=== PATIENT | female | born 2000 | race Caucasian/White ===

== ENCOUNTER 2023-10-27 15:54 | Emergency (ER) | payer OTHER, SELFPAY ==
[2023-10-27] VITALS (21 sets, daily range): BP systolic 103; BP diastolic 76; PULSE 93–140; RESP 10–24; TEMP 37.1–37.8; O2SAT 94–100; BMI 39.3
--- NOTE | 2023-10-27 16:10 | US_ITS ---
The [address] [address] Patient Name: EMILY BELCHER MRN: [id number] date: 2000 Sex: F Assigned Patient Location: ER Current Patient Location: ER Accession/Order Number: [id number] Exam Date: 10/27/2023 16:11 Report Date: 10/27/2023 17:29 At the request of: JUSTA NUGENT Procedure: US right upper quadrant EXAM: US right upper quadrant; [id number] HISTORY: Right upper quad abd pain, fever TECHNIQUE: Real-time sonography of the right upper quadrant was performed. Color and spectral Doppler were used to assess select abdominal vasculature. COMPARISON: None. FINDINGS: PANCREAS: Normal appearance of the visualized pancreas. GALLBLADDER: No gallstones or sludge. No gallbladder wall thickening or pericholecystic fluid. BILIARY DUCTS: Extrahepatic bile duct at the maldonado hepatis measures 3 mm. No intrahepatic or extrahepatic ductal dilatation. RIGHT KIDNEY: Kidney measures 11.1 x 5.9 x 5.8 cm. The kidney is within normal limits for size and echogenicity. No hydronephrosis, solid lesion, or stones demonstrated. Doppler signal is within normal limits. LIVER: Diffusely increased echogenicity of the liver. No suspicious lesion. Liver contour is smooth. Hepatomegaly with the liver measuring up to 20.1 cm (normal up to 18 cm). VASCULATURE: -Antegrade flow in the main portal vein. US/US right upper quadrant IMPRESSION: Hepatic steatosis with hepatomegaly, correlate for steatohepatitis. Electronically authenticated by: ERICK HARRINGTON Date: 10/27/2023 17:29
--- NOTE | 2023-10-27 16:12 | ED.ABDPAIN1 ---
HPI - Abdominal Pain General Chief Complaint: Abdominal Pain Stated Complaint: URQ Pain, Nausea/Vomiting, Fever Time Seen by Provider: 10/27/23 15:56 History of Present Illness HPI narrative: Patient is a 22-year-old female who presents to the ER for the evaluation of right upper quadrant abdominal pain that began approximately 16 hours ago. She states she developed a fever overnight of 102.0 Fahrenheit. She has not taken any Motrin or Tylenol and arrives to the emergency department afebrile. She has had 1-2 episodes of vomiting and 1-2 episodes of diarrhea throughout the day. She is not concerned for . She had a right upper quadrant gallbladder ultrasound approximately 2 years ago that was unremarkable, she states pain at that time was similar but not as significant as it is today. She has had no urinary symptoms. No flank or back pain. No other cough or congestion. Related Data Home Medications Medication Instructions Recorded Confirmed No Known Home Medications 10/27/23 10/27/23 Previous Rx's Medication Instructions Recorded dicyclomine 20 mg tablet 20 mg PO QID PRN abdominal pain 10/27/23 #12 tabs ketorolac 10 mg tablet 10 mg PO TID PRN pain #10 tabs 10/27/23 ondansetron 4 mg disintegrating 4 mg PO Q6H PRN nausea and 10/27/23 tablet vomiting #12 tabs Allergies Allergy/AdvReac Type Severity Reaction Status Date / Time cefdinir [From Omnicef] AdvReac Severe Hives Verified 10/27/23 16:00 dextromethorphan AdvReac Severe Hives Verified 10/27/23 16:00 [From Supress DX] guaifenesin [From Supress DX] AdvReac Severe Hives Verified 10/27/23 16:00 phenylephrine AdvReac Severe Hives Verified 10/27/23 16:00 [From Supress DX] Review of Systems ROS Constitutional Reports: fever; Denies: chills Ears, nose, mouth, and throat Denies: throat pain or nasal congestion Cardiovascular Denies: chest pain Respiratory Denies: shortness of breath or cough Gastrointestinal Reports: abdominal pain, nausea, vomiting and diarrhea Genitourinary Denies: painful urination Musculoskeletal Denies: back pain Integumentary/Breast Denies: rash Neurological Denies: headache PFSH PFSH Social History Smoking status: Never smoker Exam Narrative Exam Narrative: Gen.: Awake, alert, in no distress Head: Normocephalic, atraumatic ENT: Moist mucous membranes Respiratory: No respiratory distress, lungs clear bilaterally Cardio: Tachycardia Gastrointestinal: Abdomen is soft, nondistended and Mildly tender in the right upper quadrant with no guarding or rebound Extremities: Moves extremities equally Psych: Normal mood and affect Neuro: No focal neuro deficit Skin: Warm, dry, intact Constitutional Vital Signs, click to edit/add: Last Vital Signs Temp 98.8 F 10/27/23 19:34 Pulse 94 H 10/27/23 19:34 Resp 12 10/27/23 19:34 BP 103/76 10/27/23 16:00 Pulse Ox 98 10/27/23 19:34 O2 Del Method Room Air 10/27/23 19:34 Course Vital Signs Vital signs: Vital Signs Temperature 100.1 F 10/27/23 16:00 Pulse Rate 140 H 10/27/23 16:00 Respiratory Rate 18 10/27/23 16:00 Blood Pressure 103/76 10/27/23 16:00 Pulse Oximetry 96 10/27/23 16:00 Oxygen Delivery Method Room Air 10/27/23 16:00 Temperature 98.8 F 10/27/23 19:34 Pulse Rate 94 H 10/27/23 19:34 Respiratory Rate 12 10/27/23 19:34 Blood Pressure 103/76 10/27/23 16:00 Pulse Oximetry 98 10/27/23 19:34 Oxygen Delivery Method Room Air 10/27/23 19:34 MDM - Abdominal Pain MDM Narrative Medical decision making narrative: Patient was treated with 2 L of IV fluids, Dilaudid, Toradol, Levsin, Zofran. Vital signs improved with fluid administration. Lab studies show no leukocytosis, normal bilirubin. Ultrasound of the right upper quadrant with evidence of hepatic steatosis and no evidence of acute cholecystitis. CT of the abdomen and pelvis shows mesenteric adenitis. Monoscreen was added for the patient. Patient is negative for COVID, influenza. Abdomen is soft and benign in the ER and the patient is discharged home with Zofran, Bentyl, Toradol. Follow-up with PCP and return to the ER if symptoms change or worsen Medical Records Attestation: I reviewed the patient's medical records. Lab Data Attestation: I reviewed the patient's lab results. Labs: Lab Results 10/27/23 10/27/23 10/27/23 Range/Units 16:10 16:15 18:00 WBC 10.4 (4.0-11.0) 10^3/uL RBC 4.85 (4.20-5.40) 10^6/uL Hgb 13.6 (12.0-16.0) g/dL Hct 41.8 (36.0-48.0) % MCV 86.2 (81.0-99.0) fL MCH 28.0 (26.7-34.0) pg MCHC 32.5 (29.9-35.2) g/dL RDW 13.2 (11.0-15.0) % Plt Count 323 (150-450) 10^3/uL MPV 9.1 L (9.5-13.5) fL Neut % (Auto) 83.2 H (43.0-75.0) % Lymph % (Auto) 10.3 L (20.5-60.0) % [place] % (Auto) 5.9 (1.7-12.0) % Eos % (Auto) 0.1 L (0.9-7.0) % Baso % (Auto) 0.2 (0.2-2.0) % Neut # (Auto) 8.6 H (1.4-6.5) 10^3/uL Lymph # (Auto) 1.1 L (1.2-3.8) 10^3/uL [place] # (Auto) 0.6 (0.3-0.8) 10^3/uL Eos # (Auto) 0.0 (0.0-0.7) 10^3/uL Baso # (Auto) 0.0 (0.0-0.1) 10^3/uL Abs Immat Gran (auto) 0.03 (0.00-0.03) 10^3/uL Imm/Tot Granulo (auto) 0.3 (0.0-0.5) % Sodium 132 L (136-145) mmol/L Potassium 3.1 L (3.5-5.1) mmol/L Chloride 100 (98-107) mmol/L Carbon Dioxide 26.9 (21.0-32.0) mmol/L Anion Gap 8.2 BUN 9.0 (7.0-18.0) mg/dL Creatinine 0.70 (0.55-1.02) mg/dL Est GFR ( Amer) >60 (>=60) Est GFR (Non-Af Amer) >60 (>=60) BUN/Creatinine Ratio 12.9 Glucose 100 (74-106) mg/dL Lactate 1.6 (0.4-2.0) mmol/L Calcium 8.4 L (8.5-10.1) mg/dL Total Bilirubin 0.6 (0.2-1.0) mg/dL AST 27 (15-37) U/L ALT 74 H (14-59) U/L Alkaline Phosphatase 71 (46-116) U/L Total Protein 7.5 (6.4-8.2) g/dL Albumin 3.6 (3.4-5.0) g/dL Globulin 3.9 g/dL Albumin/Globulin Ratio 0.9 Lipase 49.0 (16.0-77.0) U/L Procalcitonin 0.06 (0.00-0.50) ng/mL Serum HCG, Qual Negative (NEGATIVE) Urine Color Yellow (YELLOW) Urine Clarity Sl cloudy (CLEAR) Urine pH 6.5 (5.0-9.0) Ur Specific [place] <=1.005 A (1.005-1.025) Urine Protein 30 A (NEG/TRACE) mg/dL Urine Glucose (UA) Negative (NEGATIVE) mg/dL Urine Ketones Negative (NEGATIVE) mg/dL Urine Occult Blood Large A (NEGATIVE) Urine Nitrite Negative (NEGATIVE) Urine Bilirubin Negative (NEGATIVE) Urine Urobilinogen 0.2 (0.2-1.0) EU/dL Ur Leukocyte Esterase Negative (NEGATIVE) Urine RBC 50-75 A (0-2) #/HPF Urine WBC 0-2 A (NONE SEEN) #/HPF Ur Squamous Epith Cells Few A (NONE/RARE) #/LPF Urine Crystals None seen (None Seen) #/HPF Urine Bacteria Trace A (NONE SEEN) #/HPF Urine Casts None seen (NONE SEEN) #/LPF Urine Mucus None seen (NONE SEEN) Ur Culture Indicated? No Monoscreen (NEGATIVE) Influenza Type A Ag Negative Influenza Type B Ag Negative SARS-CoV-2 Ag (CV2AG) Negative (NEGATIVE) 10/27/23 Range/Units 18:26 WBC (4.0-11.0) 10^3/uL RBC (4.20-5.40) 10^6/uL Hgb (12.0-16.0) g/dL Hct (36.0-48.0) % MCV (81.0-99.0) fL MCH (26.7-34.0) pg MCHC (29.9-35.2) g/dL RDW (11.0-15.0) % Plt Count (150-450) 10^3/uL MPV (9.5-13.5) fL Neut % (Auto) (43.0-75.0) % Lymph % (Auto) (20.5-60.0) % [place] % (Auto) (1.7-12.0) % Eos % (Auto) (0.9-7.0) % Baso % (Auto) (0.2-2.0) % Neut # (Auto) (1.4-6.5) 10^3/uL Lymph # (Auto) (1.2-3.8) 10^3/uL [place] # (Auto) (0.3-0.8) 10^3/uL Eos # (Auto) (0.0-0.7) 10^3/uL Baso # (Auto) (0.0-0.1) 10^3/uL Abs Immat Gran (auto) (0.00-0.03) 10^3/uL Imm/Tot Granulo (auto) (0.0-0.5) % Sodium (136-145) mmol/L Potassium (3.5-5.1) mmol/L Chloride (98-107) mmol/L Carbon Dioxide (21.0-32.0) mmol/L Anion Gap BUN (7.0-18.0) mg/dL Creatinine (0.55-1.02) mg/dL Est GFR ( Amer) (>=60) Est GFR (Non-Af Amer) (>=60) BUN/Creatinine Ratio Glucose (74-106) mg/dL Lactate (0.4-2.0) mmol/L Calcium (8.5-10.1) mg/dL Total Bilirubin (0.2-1.0) mg/dL AST (15-37) U/L ALT (14-59) U/L Alkaline Phosphatase (46-116) U/L Total Protein (6.4-8.2) g/dL Albumin (3.4-5.0) g/dL Globulin g/dL Albumin/Globulin Ratio Lipase (16.0-77.0) U/L Procalcitonin (0.00-0.50) ng/mL Serum HCG, Qual (NEGATIVE) Urine Color (YELLOW) Urine Clarity (CLEAR) Urine pH (5.0-9.0) Ur Specific [place] (1.005-1.025) Urine Protein (NEG/TRACE) mg/dL Urine Glucose (UA) (NEGATIVE) mg/dL Urine Ketones (NEGATIVE) mg/dL Urine Occult Blood (NEGATIVE) Urine Nitrite (NEGATIVE) Urine Bilirubin (NEGATIVE) Urine Urobilinogen (0.2-1.0) EU/dL Ur Leukocyte Esterase (NEGATIVE) Urine RBC (0-2) #/HPF Urine WBC (NONE SEEN) #/HPF Ur Squamous Epith Cells (NONE/RARE) #/LPF Urine Crystals (None Seen) #/HPF Urine Bacteria (NONE SEEN) #/HPF Urine Casts (NONE SEEN) #/LPF Urine Mucus (NONE SEEN) Ur Culture Indicated? Monoscreen Negative (NEGATIVE) Influenza Type A Ag Influenza Type B Ag SARS-CoV-2 Ag (CV2AG) (NEGATIVE) Imaging Data CT scan - abdomen: Attestation: I have reviewed the pertinent imaging results. Radiologist's impression: ITS Impressions Upper Quadrant Ultrasound 10/27/23 16:10 IMPRESSION: Hepatic steatosis with hepatomegaly, correlate for steatohepatitis. Electronically authenticated by: ERICK HARRINGTON Date: 10/27/2023 17:29 Abdomen/Pelvis CT 10/27/23 17:53 IMPRESSION: Prominent mesenteric lymph nodes in the mid abdomen and right lower quadrant, measuring up to 1.2 cm, nonspecific and may represent mesenteric adenitis. Hepatomegaly and hepatic steatosis. Electronically authenticated by: DELIA BECERRIL Date: 10/27/2023 18:12 ECG Data Attestation: I personally reviewed and interpreted this ECG as follows: (Sinus tachycardia at a rate of 129, no acute ST elevation or ectopy. EKG reviewed by attending physician) Discharge Plan Discharge Chief Complaint: Abdominal Pain Clinical Impression: Vomiting and diarrhea, Acute mesenteric adenitis, Abdominal pain Patient Disposition: Home, Self-Care Time of Disposition Decision: 19:20 Condition: Good Prescriptions / Home Meds: New ketorolac 10 mg tablet 10 mg PO TID PRN (Reason: pain) Qty: 10 0RF dicyclomine 20 mg tablet 20 mg PO QID PRN (Reason: abdominal pain) Qty: 12 0RF ondansetron 4 mg tablet,disintegrating 4 mg PO Q6H PRN (Reason: nausea and vomiting) Qty: 12 0RF No Action No Known Home Medications Instructions: Acute Nausea and Vomiting (ED), Acute Abdominal Pain (ED), Mesenteric Adenitis (ED) Stand Alone Forms: Portal Instructions Referrals: Shilpi Alegria MD [Primary Care Provider] - 1 week Discharge Date/Time: 10/27/23 19:38
[2023-10-27] MEDS: HYDROMORPHONE HCL 0.5 MG/0.5 ML SYRINGE IV (16:22)
[2023-10-27] MEDS: 0.9 % SODIUM CHLORIDE 1,000 ML 1000 ML IV (16:23)
[2023-10-27] MEDS: HYOSCYAMINE SULFATE 0.125 MG TAB.SUBL SL (16:23)
[2023-10-27] MEDS: ONDANSETRON PF 4 MG/2 ML VIAL IV (16:23)
[2023-10-27] MEDS: KETOROLAC TROMETHAMINE 30 MG/ML VIAL IVP (16:23)
--- NOTE | 2023-10-27 16:36 | ECG_ITS ---
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
[2023-10-27 16:38] LABS: Basophils Percent Auto 0.2 % (0.2-2.0); Eosinophils Percent Auto 0.1 % (0.9-7.0); Hematocrit 41.8 % (36.0-48.0); Hemoglobin 13.6 g/dL (12.0-16.0); Immature Granulocytes Abs Auto 0.03 10^3/uL (0.00-0.03); Immature Granulocytes Pct Auto 0.3 % (0.0-0.5); Lymphocytes Absolute Auto 1.1 10^3/uL (1.2-3.8); Lymphocytes Percent Auto 10.3 % (20.5-60.0); Mean Corpuscular HGB Conc 32.5 g/dL (29.9-35.2); Mean Corpuscular Volume 86.2 fL (81.0-99.0); Mean Platelet Volume 9.1 fL (9.5-13.5); Monocytes Absolute Auto 0.6 10^3/uL (0.3-0.8); Monocytes Percent Auto 5.9 % (1.7-12.0); Neutrophils Absolute Auto 8.6 10^3/uL (1.4-6.5); Neutrophils Percent Auto 83.2 % (43.0-75.0); Platelet Count 323 10^3/uL (150-450); Red Blood Count 4.85 10^6/uL (4.20-5.40); Red Cell Distribution Width 13.2 % (11.0-15.0); White Blood Count 10.4 10^3/uL (4.0-11.0)
[2023-10-27 16:44] LABS: HCG Qualitative NEGATIVE (NEGATIVE)
[2023-10-27 16:48] LABS: Alanine Aminotransferase 74 U/L (14-59); Albumin Globulin Ratio 0.9; Albumin Level 3.6 g/dL (3.4-5.0); Alkaline Phosphatase 71 U/L (46-116); Anion Gap 8.2; Aspartate Amino Transferase 27 U/L (15-37); BUN Creatinine Ratio 12.9; Bilirubin Total 0.6 mg/dL (0.2-1.0); Calcium 8.4 mg/dL (8.5-10.1); Carbon Dioxide 26.9 mmol/L (21.0-32.0); Chloride 100 mmol/L (98-107); Estimated GFR (African America >60 (>=60); Estimated GFR (Non-African Ame >60 (>=60); Globulin 3.9 g/dL; Glucose 100 mg/dL (74-106); Potassium 3.1 mmol/L (3.5-5.1); Sodium 132 mmol/L (136-145); Total Protein 7.5 g/dL (6.4-8.2)
[2023-10-27 16:51] LABS: Lactate/Lactic Acid 1.6 mmol/L (0.4-2.0)
[2023-10-27 16:52] LABS: Influenza Virus A Antigen Negative; Influenza Virus B Antigen Negative; Internal Control Within Normal Limits
[2023-10-27 16:53] LABS: SARS-CoV-2 Ag NEGATIVE (NEGATIVE)
[2023-10-27] MEDS: POTASSIUM CHLORIDE 10 MEQ ER TABLET 40 MEQ PO (17:28)
[2023-10-27] MEDS: 0.9 % SODIUM CHLORIDE 1,000 ML 999 ML IV (17:28)
--- NOTE | 2023-10-27 17:53 | CT_ITS ---
[address] [address] Patient Name: EMILY BELCHER MRN: [id number] date: 2000 Sex: F Assigned Patient Location: ER Current Patient Location: ER Accession/Order Number: [id number] Exam Date: 10/27/2023 17:36 Report Date: 10/27/2023 18:12 At the request of: JUSTA NUGENT Procedure: CT abdomen pelvis w con EXAM: CT abdomen pelvis w con HISTORY: fever, right sided abdominal pain COMPARISON: None. TECHNIQUE: Axial CT imaging was performed through the abdomen and pelvis with intravenous contrast. Multiplanar reformats were performed. Dose reduction techniques were achieved by using automated exposure control and/or adjustment of mA and/or kV according to patient size and/or use of iterative reconstruction technique. FINDINGS: Lung bases: Lung bases are clear. No pleural effusion. GI upper: Unremarkable. Liver: Hepatomegaly, measuring 21.3 cm With steatosis. Normal contour. Gallbladder: No significant abnormality. No cholelithiasis. Biliary system: No intra or extrahepatic biliary ductal dilatation. Spleen: Normal size. Pancreas: Unremarkable. Adrenal glands: Normal adrenal glands. Kidneys/ureters: Normal contours. No hydronephrosis. No nephrolithiasis or ureterolithiasis. Vessels: No aneurysm. Lymph Nodes: Prominent mesenteric lymph nodes in the mid abdomen and right lower quadrant, measuring up to 1.2 cm, nonspecific and may represent mesenteric adenitis. Small bowel: No wall thickening or dilatation. Colon: No wall thickening or dilatation. Appendix: No findings of appendicitis. Peritoneal cavity: No free fluid or pneumoperitoneum. Lower : Unremarkable. Bones: No acute bony abnormality. Soft tissues: No acute finding. Additional findings: None. CT/CT abdomen pelvis w con IMPRESSION: Prominent mesenteric lymph nodes in the mid abdomen and right lower quadrant, measuring up to 1.2 cm, nonspecific and may represent mesenteric adenitis. Hepatomegaly and hepatic steatosis. Electronically authenticated by: DELIA BECERRIL Date: 10/27/2023 18:12
[2023-10-27 18:29] LABS: Bilirubin Urine NEGATIVE (NEGATIVE); Blood Urine LARGE (NEGATIVE); Clarity Urine SL CLOUDY (CLEAR); Color Urine YELLOW (YELLOW); Glucose Urine UA NEGATIVE (NEGATIVE); Ketones Urine NEGATIVE (NEGATIVE); Leukocyte Esterase Urine NEGATIVE (NEGATIVE); Nitrite Urine NEGATIVE (NEGATIVE); Protein Urine 30 mg/dL (NEG/TRACE); Specific Gravity Urine <=1.005 (1.005-1.025); Urobilinogen Urine 0.2 EU/dL (0.2-1.0); pH Urine 6.5 (5.0-9.0)
[2023-10-27 18:33] LABS: Urine Microscopic Indicated YES
[2023-10-27 18:37] LABS: Bacteria Urine TRACE #/HPF (NONE SEEN); Cast Seen? NONE SEEN #/LPF (NONE SEEN); Crystals Seen? None Seen #/HPF (None Seen); Mucus Urine NONE SEEN (NONE SEEN); RBC Urine 50-75 #/HPF (0-2); Squamous Epithelial Cell Urine FEW #/LPF (NONE/RARE); Urine Culture Indicated NO; WBC Urine 0-2 #/HPF (NONE SEEN)
[2023-10-27 18:38] LABS: PROCALCITONIN 0.06 ng/mL (0.00-0.50)
[2023-10-27 19:04] LABS: Mono Screen NEGATIVE (NEGATIVE)
== END 2023-10-27 19:38 | disposition home or self-care (01) ==
PROVIDERS: Physician Assistant; Emergency Provider Emergency Medicine; PCP Family Medicine
DX: R10.9 Unspecified abdominal pain (principal); R11.10 Vomiting, unspecified; R19.7 Diarrhea, unspecified; I88.0 Nonspecific mesenteric lymphadenitis; Z20.822 Contact with and (suspected) exposure to COVID-19
CPT/HCPCS: 36415; 74177; 76705; 80053; 81001; 83605; 83690; 84145; 84703; 85025; 86308; 87040; 87804; 87811; 93005; 96361; 96374; 96375; 99285; J1170; J1885; J2405; Q9967

== ENCOUNTER 2024-11-17 14:52 | Outpatient (OUT) | payer OTHER, SELFPAY ==
--- OUTSIDE RECORDS SUMMARY | 2024-11-17 14:56 | XMS_ITS | CCD ---
Author Organization [facility] Care Team Providers Care Material Control Analyst Name Role Phone DANTE, DR CAMPOS Admitting Unavailable DANTE, DR CAMPOS Consulting Unavailable DANTE, DR CAMPOS Attending Unavailable BLANTON, DR SHILPI Rios Primary Care Unavailable ZIEBER, DR TRENT Lyn Consulting Unavailable KARASIK, DR RAINEY Attending Unavailable KARASIK, DR RAINEY Admitting Unavailable KARASIK, DR RAINEY Consulting Unavailable BLANTON, DR SHILPI Rios Primary Care Unavailable DANTE, DR CAMPOS Attending Unavailable BLANTON, DR SHILPI Rios Primary Care Unavailable DANTE, DR CAMPOS Consulting Unavailable DANTE, DR CAMPOS Admitting Unavailable DANTE, DR CAMPOS Attending Unavailable BLANTON, DR SHILPI Rios Primary Care Unavailable DANTE, DR CAMPOS Consulting Unavailable DANTE, DR CAMPOS Admitting Unavailable BLANTON, DR SHILPI Rios Primary Care Unavailable BLANTON, DR SHILPI Rios Attending Unavailable BLANTON, DR SHILPI Rios Admitting Unavailable HEUVELTON, DR DARCY Mondragon Consulting Unavailable FRANNY, DR SHILPI Rios Consulting Unavailable DANTE, DR CAMPOS Attending Unavailable BLANTON, DR SHILPI Rios Primary Care Unavailable DANTE, DR CAMPOS Admitting Unavailable DANTE, DR CAMPOS Attending Unavailable BLANTON, DR SHILPI Rios Primary Care Unavailable DANTE, DR CAMPOS Admitting Unavailable ZENA QUEVEDO Consulting Unavailable DANTE, DR CAMPOS Attending Unavailable DANTE, DR CAMPOS Admitting Unavailable BLANTON, DR SHILPI Rios Primary Care Unavailable DANTE, DR CAMPOS Attending Unavailable DANTE, DR CAMPOS Admitting Unavailable BLANTON, DR SHILPI Rios Primary Care Unavailable DANTE, DR CAMPOS Procedure Practitioner Unavailab le KARRODGERK, DR RAINEY Consulting Unavailable DANTE, DR CAMPOS Consulting Unavailable FORTINO BUTT Consulting Unavailable ZENA QUEVEDO Consulting Unavailable DANTE, DR CAMPOS Attending Unavailable DANTE, DR CAMPOS Admitting Unavailable DANTE, DR CAMPOS Consulting Unavailable BLANTON, DR SHILPI Rios Primary Care Unavailable FRANNY, DR SHILPI Rois Primary Care Unavailable DANTE, DR CAMPOS Attending Unavailable DANTE, DR CAMPOS Admitting Unavailable DANTE, DR CAMPOS Consulting Unavailable DANTE, DR CAMPOS Attending Unavailable DANTE, DR CAMPOS Admitting Unavailable DANTE, DR CAMPOS Consulting Unavailable FRANNY, DR SHILPI Rios Primary Care Unavailable FRANNY, DR SHILPI Rios Primary Care Unavailable DANTE, DR CAMPOS Attending Unavailable DANTE, DR CAMPOS Admitting Unavailable DANTE, DR CAMPOS Consulting Unavailable DANTE, DR CAMPOS Attending Unavailable DANTE, DR CAMPOS Admitting Unavailable DANTE, DR CAMPOS Consulting Unavailable FRANNY, DR SHILPI Rios Primary Care Unavailable Franny GRARETT, Shilpi Primary Care Provider Allergies Allergy Classification Reported Allergen(s) Allergy Type Date of Onset Reaction(s) Facility (1 source) cefdinir Drug Allergy [facility] (2 sources) Cephalosporins (Antibiotic) Drug allergy (disorder) [facility] (1 source) Dextrothyroxine Drug Allergy [facility] (1 source) cefdinir Drug Allergy [facility] (1 source) Other Propensity to adverse reactions 5 [facility] Problems Active Problems Problem Classification Problem Date Documented Da te Episodic/Chronic Abdominal pain (4 sources) Right upper quadrant pain; Translations: [RIGHT UPPER QUADRANT PAIN] Onset: 12-26-2021 Episodic Menstrual disorders (1 source) Missed period; Translations: [Irregular menstruation, unspecified] 10-26-2024 Chronic Other and delivery including normal (19 sources) Encounter for routine follow-up; Translations: [Single live ] Onset: 01-13-2021 Episodic Thyroid disorders (1 source) Hypothyroidism, unspecified; Translations: [HYPOTHYROIDISM UNSPECIFIED] Onset: 08-05-2021 Chronic Unclassified (1 source) CONTACT W/AND (SUSP) EXPOS COVID-19; Translations: [CONTACT W/AND (SUSP) EXPOS COVID-19] Onset: 07-25-2021 Past or Other Problems Problem Classification Problem Date Documented Date Episodic/Chronic Immunizations and screening for infectious disease (2 sources) Encounter for screening for human papillomavirus (HPV); Translations: [Encounter for screening for infections with a predominantly sexual mode of transmission] Onset: 03-04-2021 Episodic Other complications of ; puerperium affecting management of mother (1 source) Endocrine, nutritional and metabolic diseases complicating childbirth; Translations: [ENDOCRN NUTR MET DZ COMP CHILDBIRTH] Onset: 08-05-2021 Episodic Other complications of ; puerperium affecting management of mother (1 source) Streptococcus B carrier state complicating childbirth; Translations: [STREP B ACUNA STATE COMP CHILDBIRTH] Onset: 08-05-2021 Episodic Other complications of (4 sources) related exhaustion and fatigue, unspecified trimester; Translations: [PREG REL EXHAUSTION FATIGUE UNS TRI] Onset: 03-12-2021 Episodic Other female genital disorders (1 source) Other specified noninflammatory disorders of vagina; Translations: [OTH SPEC NONINFLAMMATORY D/O VAGINA] Onset: 03-04-2021 Episodic Other screening for suspected conditions (not mental disorders or infectious disease) (13 sources) Encounter for screening for Streptococcus B; Translations: [Encounter for screening for diabetes mellitus] Onset: 02-25-2021 Episodic Previous (3 sources) Maternal care for low transverse scar from previous delivery; Translations: [MAT CARE LW TRANS SCAR PREV C/S DEL] Onset: 07-28-2021 Episodic Residual codes; unclassified (1 source) 39 weeks gestation of ; Translations: [39 WEEKS GESTATION OF ] Onset: 08-05-2021 Episodic Residual codes; unclassified (1 source) Family history of other congenital malformations, deformations and chromosomal abnormalities; Translations: [FM HX OTH VOLODYMYR MALF DEFRM AND CHROM ABN] Onset: 08-05-2021 Episodic Results Test Name Value Interpretation Reference Range Facility HCG ( test) Ql (U)o n 10-26-2024 Interpretation and review of laboratory results Abnormal [facility] Preg Test, Ur Positive Negative [facility] US OB TRANSVAGINALon 025 US OB TRANSVAGINAL EXAM: OB Ultrasound: REASON FOR EXAM: Dating. COMPARISON: None. TECHNIQUE: Grayscale and M-mode Doppler imaging is performed. Transabdominal and endovaginal images. FINDINGS: heart rate: 168 bpm Sac: 3.3 cm CRL: 2.6 cm GA for sonogram: 9.4 wks (08.6 - 10.1) DEL: May 29, 2025. Cervical Length: 3.9 cm Anatomy Observed: Gestational Sac: Visualized Yolk Sac: Visualized Pole: Visualized Cardiac Activity: Visualized Uterus: Normal Uterine Position: Anteverted, anteflexed Right Ovary: 3.1 x 1.5 x 2.6 cm Volume: 5.0 mL Left Ovary: 1.8 x 1.3 x 1.9 cm Volume: 2.2 mL Cervical Length: 3.9 cm, closed AUA: 9 wks 2 days DEL: May 29, 2025 LMP: 10 wks 0 days DEL: May 24, 2025 IMPRESSION: 1. Single living intrauterine gestation. cardiac activity 168 bpm. 9.4 weeks gestational age based on sonographic dates. DEL May 29, 2025. No gross abnormalities. 2. Followup ultrasound at 20 to 22 weeks gestational age for growth and anatomy scan. This report is generated using voice recognition reporting (Chuguobang). On occasion, Chuguobang erroneously drops words from the report or replaces the spoken word with a similar sounding word. Please call with any questions/concerns regarding the report. Dictated and transcribed 10/27/2024/tom This report has been electronically signed and approved by the interpreting radiologist. Normal Not Available Comment on above: Order Comment: US OB TRANSVAGINAL No LMP recorded. Urinalysis macro (dipstick) panel (U)on 10-26-2024 Bilirubin, UA Negative Negative - 4(70) +++ mg/dL [facility] Blood, UA Negative Negative - 50 Willard/mcL [facility] Clarity, UA Clear [facility] Color, UA Yellow [facility] Glucose, UA Negative Negative - 2000(110) ++++ mg/dL [facility] Interpretation and review of laboratory results Normal [facility] Ketones, UA Negative Negative - 160(16) ++++ mg/dL [facility] Leukocytes, UA Negative Negative - 500+++ Charlie/mcL [facility] Nitrite, UA Negative Negative - Positive [facility] pH, UA 6.5 5 - 9 [facility] Protein, UA Negative Negative - 2000(20) ++++ mg/dL [facility] Spec Grav, UA 1.005 1 - 1.03 [facility] Urobilinogen, UA 0.2 0.2 - 12 mg/dL [facility] US SINGLE QUAD RT UPPERon US SINGLE QUAD RT UPPER EXAMINATION: US SINGLE QUAD RT UPPER HISTORY: Right upper quadrant pain COMPARISON: No relevant comparison available. FINDINGS: The visualized pancreas is normal in appearance. The liver is normal in size, contour and echotexture. Normal hepatopedal flow in the main portal vein with a velocity of 28 cm/s. The gallbladder is normal in size. No pericholecystic fluid, gallbladder sludge or cholelithiasis. The wall measures 2.3 mm, normal. Negative sonographic Maynard sign. The common bile duct measures 4.1 mm, normal. The right kidney is normal in appearance measuring 10.8 x 5.0 x 6.3 cm. No solid mass or hydronephrosis. IMPRESSION: Normal ultrasound Electronically authenticated by: DARCY AU Date: 2021-12-26 16:10 Normal [facility] CBC AUTO DIFFon 07-29-2021 BASO # 0.0 103/ul Normal 0.0-0.1 [facility] Comment on above: Performed By: #### D RUGRPD #### [facility] [address] [place] [address] Dr. Brian Abdi Basophils/100 WBC (Bld) 0.2 % Normal 0.2-2.0 [facility] Comment on above: Performed By: #### D RUGRPD #### [facility] [address] [place] [address] Dr. Brian Abdi EO # 0.1 103/ul Normal 0.0-0.7 [facility] Comment on above: Performed By: #### D RUGRPD #### [facility] [address] [place] [address] Dr. Brian Abdi Eosinophils/100 WBC (Bld) 0.5 % Critically low 0.9-7.0 [facility] Comment on above: Performed By: #### D RUGRPD #### [facility] [address] [place] [address] Dr. Brian Abdi Erythrocyte distribution width (RBC) [Ratio] 13.9 % Normal 11.0-15.0 [facility] Comment on above: Performed By: #### D RUGRPD #### [facility] [address] [address] [address] Brian Abdi Hematocrit (Bld) [Volume fraction] 25.7 % Critically low 36.0-48.0 [facility] Comment on above: Performed By: #### D RUGRPD #### [facility] [address] [address] [address] Brian Abdi Hemoglobin (Bld) [Mass/Vol] 8.2 g/dL Critically low 12.0-16.0 [facility] Comment on above: Result Comment: SURESH ENT DELIVERED Performed By: #### D RUGRPD #### [facility] [address] [address] [address] Brian Abdi IG # 0.04 10e3/ul Critically high 0.00-0.03 [facility] Comment on above: Performed By: #### D RUGRPD #### [facility] [address] [address] [address] Brian Abdi IG % 0.4 % Normal 0.0-0.5 [facility] Comment on above: Performed By: #### D RUGRPD #### [facility] [address] [address] [address] Brian Abdi LYMPH # 2.4 103/ul Normal 1.2-3.8 [facility] Comment on above: Performed By: #### D RUGRPD #### [facility] [address] [address] [address] Brian Abdi Lymphocytes/100 WBC (Bld) 23.6 % Normal 20.5-60.0 [facility] Comment on above: Performed By: #### D RUGRPD #### [facility] [address] [address] [address] Brian Abdi MANUAL DIFF REQ NO Normal [facility] Comment on above: Performed By: #### D RUGRPD #### [facility] [address] [address] [address] Brian Abdi MCH (RBC) [Entitic mass] 27.6 pg Normal 26.7-34.0 [facility] Comment on above: Performed By: #### D RUGRPD #### [facility] [address] [address] [address] Brian Abdi MCHC (RBC) [Mass/Vol] 31.9 g/dL Normal 29.9-35.2 [facility] Comment on above: Performed By: #### D RUGRPD #### [facility] [address] [address] [address] Brian Abdi MCV (RBC) [Entitic vol] 86.5 fL Normal 81.0-99.0 [facility] Comment on above: Performed By: #### D RUGRPD #### [facility] [address] [address] [address] Brian Abdi MONO # 0.7 103/ul Normal 0.3-0.8 [facility] Comment on above: Performed By: #### D RUGRPD #### [facility] [address] [address] [address] Brian Abdi Monocytes/100 WBC (Bld) 7.3 % Normal 1.7-12.0 [facility] Comment on above: Performed By: #### D RUGRPD #### [facility] [address] [address] [address] Brian Abdi NEUT # 6.8 103/ul Critically high 1.4-6.5 [facility] Comment on above: Performed By: #### D RUGRPD #### [facility] [address] [address] [address] Brian Abdi Neutrophils/100 WBC (Bld) 68.0 % Normal 43.0-75.0 [facility] Comment on above: Performed By: #### D RUGRPD #### [facility] [address] [address] [address] Brian Abdi Platelet mean volume (Bld) [Entitic vol] 9.8 fL Normal 9.5-13.5 [facility] Comment on above: Performed By: #### D RUGRPD #### [facility] [address] [address] [address] Brian Abdi PLT 204 103/ul Normal 150-450 [facility] Comment on above: Performed By: #### D RUGRPD #### [facility] [address] [address] [address] Brian Abdi RBC 2.97 106/ul Critically low 4.20-5.40 [facility] Comment on above: Performed By: #### D RUGRPD #### [facility] [address] [place] [address] Dr. Brian Abdi WBC 10.0 103/ul Normal 4.0-11.0 [facility] Comment on above: Performed By: #### D RUGRPD #### [facility] [address] [place] [address] Dr. Brian Abdi CBC AUTO DIFFon 07-28-2021 BASO # 0.0 103/ul Normal 0.0-0.1 [facility] Comment on above: Performed By: #### H H #### [facility] [address] [place] [address] Sunitha Tram Basophils/100 WBC (Bld) 0.3 % Normal 0.2-2.0 [facility] Comment on above: Performed By: #### H H #### [facility] [address] [place] [address] Sunitha Tram EO # 0.0 103/ul Normal 0.0-0.7 [facility] Comment on above: Performed By: #### H H #### [facility] [address] [place] [address] Sunitha Tram Eosinophils/100 WBC (Bld) 0.6 % Critically low 0.9-7.0 [facility] Comment on above: Performed By: #### H H #### [facility] [address] [place] [address] Sunitha Tram Erythrocyte distribution width (RBC) [Ratio] 14.1 % Normal 11.0-15.0 [facility] Comment on above: Performed By: #### H H #### [facility] [address] [place] [address] Sunitha Tram Hematocrit (Bld) [Volume fraction] 34.5 % Critically low 36.0-48.0 [facility] Comment on above: Performed By: #### H H #### [facility] [address] [place] [address] Sunitha Tram Hemoglobin (Bld) [Mass/Vol] 10.8 g/dL Critically low 12.0-16.0 [facility] Comment on above: Performed By: #### H H #### [facility] [address] [place] [address] Sunitha Tram IG # 0.02 10e3/ul Normal 0.00-0.03 [facility] Comment on above: Performed By: #### H H #### [facility] [address] [place] [address] Sunitha Tram IG % 0.3 % Normal 0.0-0.5 [facility] Comment on above: Performed By: #### H H #### [facility] [address] [place] [address] Sunitha Tram LYMPH # 1.8 103/ul Normal 1.2-3.8 [facility] Comment on above: Performed By: #### H H #### [facility] [address] [place] [address] Sunitha Ugalde Lymphocytes/100 WBC (Bld) 25.4 % Normal 20.5-60.0 [facility] Comment on above: Performed By: #### H H #### [facility] [address] [place] [address] Sunitha Ugalde MANUAL DIFF REQ NO Normal [facility] Comment on above: Performed By: #### H H #### [facility] [address] [place] [address] Sunitha Tram MCH (RBC) [Entitic mass] 27.3 pg Normal 26.7-34.0 [facility] Comment on above: Performed By: #### H H #### [facility] [address] [place] [address] Sunitha Tram MCHC (RBC) [Mass/Vol] 31.3 g/dL Normal 29.9-35.2 [facility] Comment on above: Performed By: #### H H #### [facility] [address] [place], [place] [address] Sunitha Tram MCV (RBC) [Entitic vol] 87.3 fL Normal 81.0-99.0 [facility] Comment on above: Performed By: #### H H #### [facility] [address] [id number] Sunitha Tram MONO # 0.6 103/ul Normal 0.3-0.8 [facility] Comment on above: Performed By: #### H H #### [facility] [address] [id number] Sunitha Tram Monocytes/100 WBC (Bld) 8.7 % Normal 1.7-12.0 [facility] Comment on above: Performed By: #### H H #### [facility] [address] [place] [address] Sunitha Tram NEUT # 4.7 103/ul Normal 1.4-6.5 [facility] Comment on above: Performed By: #### H H #### [facility] [address] [place], [place] [id number] Sunitha Tram Neutrophils/100 WBC (Bld) 64.7 % Normal 43.0-75.0 [facility] Comment on above: Performed By: #### H H #### [facility] [address] [place], [place] [id number] Sunitha Tram Platelet mean volume (Bld) [Entitic vol] 9.8 fL Normal 9.5-13.5 [facility] Comment on above: Performed By: #### H H #### [facility] [address] [place], [place] [id number] Sunitha Tram PLT 240 103/ul Normal 150-450 [facility] Comment on above: Performed By: #### H H #### [facility] [address] [place], [place] [id number] Sunitha Tram RBC 3.95 106/ul Critically low 4.20-5.40 [facility] Comment on above: Performed By: #### H H #### [facility] [address] [id number] Sunitha Tram WBC 7.3 103/ul Normal 4.0-11.0 [facility] Comment on above: Performed By: #### H H #### [facility] [address] [place] [address] Sunitha Ugalde DRUG SCREEN RAPID (URINE)on 07-28-2021 AMP Negative Normal NEGATIVE [facility] Comment on above: Performed By: #### D RUGRPD #### [facility] [address] [place] [address] Dr. Brian Abdi BAR Negative Normal NEGATIVE [facility] Comment on above: Performed By: #### D RUGRPD #### [facility] [address] [place] [address] Dr. Brian Abdi BUP Negative Normal NEGATIVE [facility] Comment on above: Performed By: #### D RUGRPD #### [facility] [address] [place] [address] Dr. Brian Abdi BZO Negative Normal NEGATIVE [facility] Comment on above: Performed By: #### D RUGRPD #### [facility] [address] [place] [address] Dr. Brian Abdi LISA Negative Normal NEGATIVE [facility] Comment on above: Performed By: #### D RUGRPD #### [facility] [address] [place] [address] Dr. Brian Abdi CUT-OFFS SEE BELOW Normal [facility] Comment on above: Result Comment: AMP (Amphetamine): 500ng/mL, BAR (Barbituates): 200 ng/mL, BZO (Benzodiazepines): 150 ng/mL, BUP (Buprenorphine): 10 ng/mL, LISA (Cocaine): 150 ng/mL, mAMP (Methamphetamine): 500 ng/mL, MTD (Methadone): 200 ng/mL, OPI (Opiates): 100 ng/mL, OXY (Oxycodone): 100 ng/mL, PCP (Phencyclidine): 25 ng/mL, PPX (Propoxyphene): 300 ng/mL, THC (Cannabinoids): 50 ng/mL, TCA (Trycyclic Antidepressants): 300 ng/mL Performed By: #### D RUGRPD #### [facility] [address] [address] [address] Brian Abdi DRUG CUT HEADER DRUG CLASS TEST SYSTEM CUT-OFF CONCENTRATIONS ARE FOLLOWS: Normal [facility] Comment on above: Performed By: #### D RUGRPD #### [facility] [address] [address] [address] Brian Abdi mAMP Negative Normal NEGATIVE [facility] Comment on above: Performed By: #### D RUGRPD #### [facility] [address] [address] [address] Brian Abdi MTD Negative Normal NEGATIVE [facility] Comment on above: Performed By: #### D RUGRPD #### [facility] [address] [address] [address] Brian Abdi OPI Negative Normal NEGATIVE [facility] Comment on above: Performed By: #### D RUGRPD #### [facility] [address] [place] [address] Dr. Brian Abdi OXY Negative Normal NEGATIVE [facility] Comment on above: Performed By: #### D RUGRPD #### [facility] [address] [address] [address] Brian Abdi PCP Negative Normal NEGATIVE [facility] Comment on above: Performed By: #### D RUGRPD #### [facility] [address] [place] [address] Dr. Brian Abdi PPX Negative Normal NEGATIVE [facility] Comment on above: Performed By: #### D RUGRPD #### [facility] [address] [address] [address] Brian Abdi TCA Negative Normal NEGATIVE [facility] Comment on above: Performed By: #### D RUGRPD #### [facility] [address] [address] [address] Brian Abdi THC Negative Normal NEGATIVE [facility] Comment on above: Performed By: #### D RUGRPD #### [facility] [address] [place] [address] Dr. Brian Abdi TYPE AND SCREENon 07-28-2021 TYPE AND SCREEN Negative Normal [facility] Comment on above: Performed By: #### T NS #### [facility] [address] [place] [address] Dr. 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 YELLOW Normal YELLOW [facility] Comment on above: Performed By: #### H H #### [facility] [address] [place] [address] Sunitha Tram Glucose Ql (U) Negative Normal NEGATIVE [facility] Comment on above: Performed By: #### H H #### [facility] [address] [place] [address] Sunitha Tram Hemoglobin Ql (U) Negative Normal NEGATIVE [facility] Comment on above: Performed By: #### H H #### [facility] [address] [place] [address] Sunitha Tram Ketones Ql (U) Negative Normal NEGATIVE [facility] Comment on above: Performed By: #### H H #### [facility] [address] [place] [address] Sunitha Tram LEUKOCYTES Negative Normal NEGATIVE [facility] Comment on above: Performed By: #### H H #### [facility] [address] [place] [address] Sunitha Tram Nitrite Ql (U) Negative Normal NEGATIVE [facility] Comment on above: Performed By: #### H H #### [facility] [address] [place] [address] Sunitha Tram pH (U) 6.0 [pH] Normal 5-9 [facility] Comment on above: Performed By: #### H H #### [facility] [address] [place] [address] Sunitha Ugalde SPEC GRAVITY <=1.005 Abnormal 1.005-<=1.025 [facility] Comment on above: Performed By: #### H H #### [facility] [facility] [address] [place] [address] Sunitha Ugalde UA PROTEIN Negative Normal NEGATIVE/ TRACE [facility] Comment on above: Performed By: #### H H #### [facility] [address] [place] [address] Sunitha Ugalde UR MICRO IND NOT INDICATED Normal [facility] Comment on above: Performed By: #### H H #### [facility] [address] [place] [address] Sunitha Ugalde Urobilinogen Qn (U) 0.2 {Fito'U}/dL Normal 0.2 - 1. 0 [facility] Comment on above: Performed By: #### H H #### [facility] [address] [place] [address] Sunitha Tram Covid-19 PCR ([facility])on 06-28 SARS-CoV-2 (COVID-19) RNA JEROD+probe Ql (Unsp spec) Not detected Normal NOT DETECTED [facility] Comment on above: Result Comment: This test is not yet approved or cleared by the [place] FDA. When there are no FDA-approved or cleared tests available, and other criteria are met, FDA can make tests available under an emergency access mechanism called an Emergency Use Authorization (EUA). The EUA for this test is supported by the [place] of Health and Human Service's (HHS's) declaration that circumstances exist to justify the emergency use of in vitro diagnostics for the detection and/or diagnosis of the virus that causes COVID-19. This EUA will remain in effect (meaning this test can be used) for the duration of the COVID-19 declaration justifying emergency of IVDs, unless it is terminated or revoked by FDA (after which the test may no longer be used). When diagnostic testing is negative, the possibility of a false negative should be considered in the context of a patient's recent exposures and the presence of clinical signs and symptoms consistent with SARS-CoV-2. Performed By: #### D RUGRPD #### [facility] [address] [place] [address] Dr. Brian Abdi GROUP B STREP CULTUREon 06-27 S. agalactiae Ag Ql (Unsp spec) Culture Observations: GBS CALD TO TRAM TRAORE,TESSIE@/ /RK Isolate 1 Streptococcus agalactiae Moderate growth of ORGANISM 1 Streptococcus agalactiae ANTIBIOTIC M.I.C RX STATUS Benzylpenicillin <=0.06 S F Ampicillin <=0.25 S F Cefotaxime <=0.12 S F Ceftriaxone <=0.12 S F Levofloxacin 0.5 S F Inducible Clindamycin Resistance Neg NEG F Erythromycin 2 R F Clindamycin <=0.25 S F Linezolid <=2 S F Vancomycin 0.5 S F Tetracycline <=0.25 S F Normal [facility] Comment on above: Performed By: #### G BSCX #### [facility] [address] [place] [address] Dr. Brian Abdi HEMOGRAM AND PLATELon 2020 Hematocrit (Bld) [Volume fraction] 33.7 % Critically low 36.0-48.0 [facility] Comment on above: Performed By: #### H H #### [facility] [address] [place] [address] Sunitha Tram Hemoglobin (Bld) [Mass/Vol] 10.8 g/dL Critically low 12.0-16.0 [facility] Comment on above: Performed By: #### H H #### [facility] [address] [place] [address] Sunithajack Salesen MCH (RBC) [Entitic mass] 28.3 pg Normal 26.7-34.0 [facility] Comment on above: Performed By: #### H H #### [facility] [address] [place] [address] Sunitha Tram MCHC (RBC) [Mass/Vol] 32.0 g/dL Normal 29.9-35.2 [facility] Comment on above: Performed By: #### H H #### [facility] [address] [address] Sunitha Ugalde MCV (RBC) [Entitic vol] 88.2 fL Normal 81.0-99.0 [facility] Comment on above: Performed By: #### H H #### [facility] [address] [place] [address] Sunitha Ugalde PLT 252 103/ul Normal 150-450 [facility] Comment on above: Performed By: #### H H #### [facility] [address] [place] [address] Sunithajack Ugalde RBC 3.82 106/ul Critically low 4.20-5.40 [facility] Comment on above: Performed By: #### H H #### [facility] [address] [place] [address] Sunithajack Ugalde WBC 8.2 103/ul Normal 4.0-11.0 [facility] Comment on above: Performed By: #### H H #### [facility] [address] [place] [address] Sunitha Ugalde GLUCOSE - 1HRon 04-16-2021 Glucose [Mass/Vol] 129 mg/dL Critically high 74-106 [facility] Comment on above: Performed By: #### D RUGRPD #### [facility] [address] [place] [address] Dr. Brian Abdi HEMOGLOBINon 04-16-2021 Hemoglobin (Bld) [Mass/Vol] 10.8 g/dL Critically low 12.0-16.0 [facility] Comment on above: Performed By: #### H H #### [facility] [address] [place], [place] [id number] Sunitha Tram AFP MATERNAL FOR SPINA BIFID Aon 03-19-2021 AFP MoM 0.91 Normal [facility] Comment on above: Performed By: #### H H #### [facility] [address] [place] [address] Sunithajack Ugalde AFP Value 47.2 ng/mL Normal [facility] Comment on above: Performed By: #### H H #### [facility] [address] [place], [place] [id number] Sunitha Ugalde AFP, Serum for Spina Bifida Report Normal [facility] Comment on above: Performed By: #### H H #### [facility] [address] [place] [address] Sunitha Ugalde Comment Comment Normal [facility] Comment on above: Result Comment: Isa Robles, Ph.D., [facility] Director . References: Available Upon Request. . Multiples Of Median Cutoffs For AFP Elevations Arroyo 2.5 Black 2.8 IDD 2.0 Twins 4.5 Abbreviation Definitions IDD - Insulin Dep Diabetes OSBR - Open Spina Bifida Risk . For further inquiries contact [facility] at [phone]. Performed By: #### H H #### [facility] [address] [place] [address] Sunitha Ugalde Gest Age Collection Date 20.1 weeks Normal [facility] Comment on above: Performed By: #### H H #### [facility] [address] [place] [address] Sunitha Ugalde Gestat, Age Based on DEL Normal [facility] Comment on above: Result Comment: 03/2021 Recalculations are not recommended when gestational dating by LMP and ultrasound are within 10 days. Performed By: #### H H #### [facility] [address] [place] [address] Sunitha Ugalde Insulin Dep Diabetes No Normal [facility] Comment on above: Performed By: #### H H #### [facility] [address] [place] [address] Sunitha Ugalde Interpretation Comment Normal [facility] Comment on above: Result Comment: Inte rpretation: Screen Negative . This result is screen negative for OSB. The AFP MoM calculated is based on the gestational age provided. MS-AFP can identify up to 80% of open neural tube defects. Closed neural tube defects and some open defects may not be detected by this test. This test does not screen for Down Syndrome or Trisomy 18. If screening for Down Syndrome or Trisomy 18 is desired, contact [facility] to discuss available options. The [place] [employer] recommends amniocentesis be offered to women age 35 and older. Performed By: #### H H #### [facility] [address] [address] Sunitha Ugalde [age] Normal [facility] Comment on above: Performed By: #### H H #### [facility] [address] [address] Sunitha Ugalde Multiple Gestation No Normal [facility] Comment on above: Performed By: #### H H #### [facility] [address] [address] Sunitha Ugalde [place] 1 [place] [address] Normal [facility] Comment on above: Performed By: #### H H #### [facility] [address] [address] Sunitha Ugalde PDF . Normal [facility] Comment on above: Performed By: #### H H #### [facility] [address] [place] [address] Sunitha Ugalde Race Normal [facility] Comment on above: Performed By: #### H H #### [facility] [address] [place] [address] Sunitha Ugalde Test Results: Negative Normal [facility] Comment on above: Performed By: #### H H #### [facility] [address] [place] [address] Sunitha Ugalde US PREG ANATOMY SINGLEon US PREG ANATOMY SINGLE EXAMINATION: US PREG ANATOMY SINGLE HISTORY: screening COMPARISON: No relevant comparison available. TECHNIQUE: Transabdominal sonographic examination was performed for obstetrical and evaluation. FINDINGS: Number: 1 Heart Rate: 147.2 bpm H.B. /min Amniotic Fluid Volume: Subjectively normal Placental Location: POSTERIOR without previa Cervix Length: 5 cm , closed ANATOMY: Normal Structures -cerebellum, choroid plexus, cisterna magna, lateral cerebral ventricles, orbits, midline falx, hard palate, four-chamber heart, RVOT, LVOT, stomach, kidneys, bladder, umbilical cord insertion into abdomen, three-vessel cord, cervical spine, thoracic spine, lumbar spine, sacral spine, right upper extremity, left upper extremity, right lower extremity, left lower extremity. SUBOPTIMALLY SEEN: None ABNORMALITIES: None BIOMETRY: BPD: 4.6 cm 19 weeks 6 days HC: 17.1 cm 19 weeks 5 days AC: 15.5 cm 20 weeks 5 days FL: 3.2 cm 19 weeks 6 days EFW:338.9 grams; 49th percentile FL/AC: 20.5 FL/BPD: 69.3 HC/AC: 1.1 GESTATIONAL AGE: Age by EDC: 20 weeks 1 days DEL by EDC: 08/03/2021 Age by current US: 20 weeks 0 days DEL by current US: 08/04/2021 IMPRESSION: 1. Single live intrauterine with growth detailed above. Electronically authenticated by: TRENT LEE Date: 2021-03-17 11:10 Normal [facility] HEMOGLOBIN AND HEMATOCRITon 03-12-2021 Hematocrit (Bld) [Volume fraction] 34.4 % Critically low 36.0-48.0 [facility] Comment on above: Performed By: #### H H #### [facility] [address] [place] [address] Sunitha Ugalde Hemoglobin (Bld) [Mass/Vol] 11.3 g/dL Critically low 12.0-16.0 [facility] Comment on above: Performed By: #### H H #### [facility] [address] [place], [place] [id number] Sunitha Ugalde CHLAMYDIA/GONOCOCCUS JEROD (SW AB/URINE/PAPon 02-28-2021 Chlamydia trachomatis, JEROD Negative Normal Negative [facility] Comment on above: Performed By: #### C T/NGNA #### [facility] [address] [place] [address] Sunitha Ugalde Neisseria gonorrhoeae, JEROD Negative Normal Negative [facility] Comment on above: Performed By: #### C T/NGNA #### [facility] [address] [place], [place] [id number] Sunithajack Ugalde PAP ACOG PANEL 2: 21 to 29on 02-28-2021 . . Normal [facility] Comment on above: Performed By: #### H H #### [facility] [address] [place], [place] [id number] Sunitha Ugalde Age Gdln ACOG Testing 21-29 Normal [facility] Comment on above: Performed By: #### H H #### [facility] [address] [address] Sunitha gUalde DIAGNOSIS: Comment Normal [facility] Comment on above: Result Comment: NEGA TIVE FOR INTRAEPITHELIAL LESION OR MALIGNANCY. Performed By: #### H H #### [facility] [address] [address] Sunitha Ugalde Methodology: Comment Normal [facility] Comment on above: Result Comment: This liquid based ThinPrep(R) pap test was screened with the use of an image guided system. Performed By: #### H H #### [facility] [address] [address] Sunitha Ugalde Note: Comment Normal [facility] Comment on above: Result Comment: The Pap smear is a screening test designed to aid in the detection of premalignant and malignant conditions of the uterine cervix. It is not a diagnostic procedure and should not be used as the sole means of detecting cervical cancer. Both false-positive and false-negative reports do occur. . Performed By: #### H H #### [facility] [address] [address] Sunitha Ugalde Performed by: Comment Normal [facility] Comment on above: Result Comment: Aixa Betancur, [employer] Registrar (ASCP) Performed By: #### H H #### [facility] [address] [place] [address] Sunitha Ugalde Reflex Criteria: Comment Normal [facility] Comment on above: Result Comment: The HPV DNA reflex criteria were not met with this specimen result therefore, no HPV testing was performed. . Performed By: #### H H #### [facility] [address] [address] Sunitha Ugalde Specimen adequacy: Comment Normal [facility] Comment on above: Result Comment: Sati sfactory for evaluation. No endocervical component is identified. Performed By: #### H H #### [facility] [address] [id number] Sunitha Ugalde VAGINITIS/VAGINOSIS DNA PROB Constantine 02-27-2021 Tricia species Negative Normal Negative [facility] Comment on above: Performed By: #### V AGINT #### [facility] [address] [place] [address] Sunitha Ugalde Gardnerella vaginalis Negative Normal Negative [facility] Comment on above: Performed By: #### V AGINT #### [facility] [address] [place] [address] Sunitha Ugalde Trichomonas vaginalis Negative Normal Negative [facility] Comment on above: Performed By: #### V AGINT #### [facility] [address] [place] [address] Sunitha Ugalde CULTURE URINEon 01-16-2021 CULTURE URINE Isolate 1 Streptococcus agalactiae 20,000 cfu/ml of ORGANISM 1 Streptococcus agalactiae ANTIBIOTIC M.I.C RX STATUS Benzylpenicillin <=0.06 S F Ampicillin <=0.25 S F Cefotaxime <=0.12 S F Ceftriaxone <=0.12 S F Levofloxacin 0.5 S F Inducible Clindamycin Resistance Neg NEG F Erythromycin 2 R F Clindamycin <=0.25 S F Linezolid <=2 S F Vancomycin 0.5 S F Tetracycline <=0.25 S F Normal [facility] Comment on above: Performed By: #### D RUGRPD #### [facility] [address] [place] [address] Dr. Brian Abdi HEP B SURFACE ANTIGEN SCREEN on 01-14-2021 HBsAg Screen Negative Normal Negative [facility] Comment on above: Performed By: #### H BSANS #### [facility] [address] [place] [address] Sunitha Tram HEPATITIS C VIRUS AB W/ REFL EX QUANTon 01-14-2021 HCV AB 0.1 s/co ratio Normal 0.0-0.9 [facility] Comment on above: Performed By: #### H H #### [facility] [address] [place] [address] Sunitha Ugalde Interpretation: Comment Normal [facility] Comment on above: Result Comment: Nega tive Not infected with HCV, unless recent infection is suspected or other evidence exists to indicate HCV infection. Performed By: #### H H #### [facility] [address] [place] [address] Sunitha Ugalde HIV 1 AND 2 WITH REFLEXon HIV Screen 4th Generation wRfx Non-Reactive Normal Non Reactive [facility] Comment on above: Performed By: #### D RUGRPD #### [facility] [address] [place] [address] Dr. Brian Abdi RPR QUANTon 01-14-2021 Rapid Plasma Reagin, Quant Non-Reactive Normal NonRea<1:1 [facility] Comment on above: Performed By: #### H H #### [facility] [address] [place] [address] Sunitha Ugalde RUBELLA AB IGGon 01-14-2021 Rubella Antibodies, IgG 1.27 index Normal Immune >0.99 [facility] Comment on above: Result Comment: Non- immune <0.90 Equivocal 0.90 - 0.99 Immune >0.99 Performed By: #### H H #### [facility] [address] [place] [address] Sunitha Ugalde CBC AUTO DIFFon 01-13-2021 BASO # 0.0 103/ul Normal 0.0-0.1 [facility] Comment on above: Performed By: #### C BC #### [facility] [address] [place] [address] Sunitha Salesen Basophils/100 WBC (Bld) 0.4 % Normal 0.2-2.0 [facility] Comment on above: Performed By: #### C BC #### [facility] [address] [place] [address] Sunitha Tram EO # 0.1 103/ul Normal 0.0-0.7 [facility] Comment on above: Performed By: #### C BC #### [facility] [address] [place] [address] Sunitha Tram Eosinophils/100 WBC (Bld) 0.7 % Critically low 0.9-7.0 [facility] Comment on above: Performed By: #### C BC #### [facility] [address] [place], [place] [id number] Sunitha Tram Erythrocyte distribution width (RBC) [Ratio] 13.7 % Normal 11.0-15.0 [facility] Comment on above: Performed By: #### C BC #### [facility] [address] [place] [address] Sunitha Tram Hematocrit (Bld) [Volume fraction] 39.1 % Normal 36.0-48.0 [facility] Comment on above: Performed By: #### C BC #### [facility] [address] [place] [address] Sunitha Tram Hemoglobin (Bld) [Mass/Vol] 12.7 g/dL Normal 12.0-16.0 [facility] Comment on above: Performed By: #### C BC #### [facility] [address] [place] [address] Sunitha Tram IG # 0.02 10e3/ul Normal 0.00-0.03 [facility] Comment on above: Performed By: #### C BC #### [facility] [address] [place] [address] Sunitha Tram IG % 0.3 % Normal 0.0-0.5 [facility] Comment on above: Performed By: #### C BC #### [facility] [address] [place] [address] Sunitha Tram LYMPH # 1.6 103/ul Normal 1.2-3.8 [facility] Comment on above: Performed By: #### C BC #### [facility] [address] [place] [address] Sunitha Tram Lymphocytes/100 WBC (Bld) 21.6 % Normal 20.5-60.0 [facility] Comment on above: Performed By: #### C BC #### [facility] [address] [place], [place] [id number] Sunitha Tram MANUAL DIFF REQ NO Normal [facility] Comment on above: Performed By: #### C BC #### [facility] [address] [place], [place] [address] Sunitha Tram MCH (RBC) [Entitic mass] 27.6 pg Normal 26.7-34.0 [facility] Comment on above: Performed By: #### C BC #### [facility] [address] [place] [address] Sunitha Ugalde MCHC (RBC) [Mass/Vol] 32.5 g/dL Normal 29.9-35.2 [facility] Comment on above: Performed By: #### C BC #### [facility] [address] [place] [address] Sunitha Ugalde MCV (RBC) [Entitic vol] 85.0 fL Normal 81.0-99.0 [facility] Comment on above: Performed By: #### C BC #### [facility] [address] [place] [address] Sunitha Ugalde MONO # 0.4 103/ul Normal 0.3-0.8 [facility] Comment on above: Performed By: #### C BC #### [facility] [address] [place] [address] Sunitha Ugalde Monocytes/100 WBC (Bld) 5.4 % Normal 1.7-12.0 [facility] Comment on above: Performed By: #### C BC #### [facility] [address] [place] [address] Sunitha Ugalde NEUT # 5.4 103/ul Normal 1.4-6.5 [facility] Comment on above: Performed By: #### C BC #### [facility] [address] [place] [address] Sunithajack Ugalde Neutrophils/100 WBC (Bld) 71.6 % Normal 43.0-75.0 [facility] Comment on above: Performed By: #### C BC #### [facility] [address] [place], [place] [id number] Sunitha Tram Platelet mean volume (Bld) [Entitic vol] 9.3 fL Critically low 9.5-13.5 [facility] Comment on above: Performed By: #### C BC #### [facility] [address] [place], [place] [address] Sunitha Tram PLT 296 103/ul Normal 150-450 [facility] Comment on above: Performed By: #### C BC #### [facility] [address] [place], [place] [address] Sunitha Ugalde RBC 4.60 106/ul Normal 4.20-5.40 [facility] Comment on above: Performed By: #### C BC #### [facility] [address] [place], [place] [address] Sunitha Ugalde WBC 7.5 103/ul Normal 4.0-11.0 [facility] Comment on above: Performed By: #### C BC #### [facility] [address] [place], [place] [address] Sunitha Ugalde GLYCOHEMOGLOBIN A1Con 2020 ADA RECOMMENDATION ADA THERAPEUTIC TARGET 6.0 - 7.0 ACTION SUGGESTED > 7.0 Normal [facility] Comment on above: Performed By: #### A 1C #### [facility] [address] [place] [address] Sunitha Ugalde Glucose [Mass/Vol] 111 mg/dL Normal [facility] Comment on above: Performed By: #### A 1C #### [facility] [address] [place], [place] [address] Sunitha Ugalde HbA1c (Bld) [Mass fraction] 5.5 % Normal <=6.0 [facility] Comment on above: Performed By: #### A 1C #### [facility] [address] [place], [place] [address] Sunitha Ugalde BARBI BOX TEST PT SEND OUTo n 01-13-2021 SENT TO REF LAB 01/13/21 Normal [facility] Comment on above: Performed By: #### D RUGRPD #### [facility] [address] [place], [place] [address] Dr. Brian Abdi TYPE AND SCREENon 01-13-2021 TYPE AND SCREEN Negative Normal [facility] Comment on above: Performed By: #### D RUGRPD #### [facility] [address] [place], [place] [address] Dr. Brian Abdi Vital Signs Date Time Vital Sign Value Performing Clinician Facility 10-26-2024 14:54-0500 Body weight 96.25 kg Noms Nurse [facility] 03-19-2021 [id number] Body weight 83.[address] ANDRES HOWELL [facility] Comment on above: Performed By: #### H H #### [facility] [address] [place], [place] [address] Sunitha Ugalde Encounters Encounter Date Encounter Type Care Provider Facility Start: 10-26-2024 End: 10-26-2024 ambulatory Not Available Start: 10-26-2024 End: 10-26-2024 Office outpatient visit 15 minutes [facility] Comment on above: GA: 9w2d Start: 10-26-2024 End: 10-26-2024 ambulatory Not Available Start: 12-26-2021 End: 12-27-[address] SHILPI BLANTON Facility:[facility] Start: 08-04-2021 End: 08-04-[address] ANDRES HOWELL Facility:[facility] Start: 07-28-2021 Evaluation and manag ement of inpatient ZENA QUEVEDO Facility:[facility] Start: 07-28-2021 End: 07-30-2021 Evaluation and management of inpatient DR ANDRES HOWELL Facility:[facility] Start: 07-25-2021 Encounter for preprocedural laboratory examination DR ANDRES HOWELL [facility] Start: 07-22-2021 End: 07-22-[address] ANDRES HOWELL Facility:[facility] Start: 07-22-2021 End: 07-22-2021 Encounter for preprocedural laboratory examination DR ANDRES HOWELL Facility:[facility] Start: 07-09-2021 End: 07-09-[address] SHILPI BLANTON Facility:[facility] Start: 05-21-2021 End: 05-22-[address] ANDRES HOWELL Facility:[facility] Start: 04-16-2021 End: 04-17-[address] ANDRES HOWELL Facility:[facility] Start: 03-17-2021 End: 03-18-[address] ANDRES HOWELL Facility:[facility] Start: 03-12-2021 End: 03-13-[address] REDD NOLAN Facility:[facility] Start: 02-25-2021 End: 02-25-[address] SHILPI BLANTON Facility:[facility] Start: 02-04-[address] ANDRES HOWELL Facility :[facility] Start: 01-13-2021 End: 01-14-[address] ANDRES HOWELL Facility:[facility] Procedures Date Procedure Procedure Detail Performing Clinician Start: 10-26-2024 End: 10-26-2024 Urnls dip stick/tablet rgnt non-auto w/o micrscp Andres Howell DO Work Phone: Start: 07-28-2021 Extraction of Produc ts of Conception, Low Cervical, Open Approach DR ANDRES HOWELL Plan of Treatment Date Care Activity Detail Author Start: 11-27-2024 End: 11-27-2024 Patient encounter procedure 11/27/2024 2:20 PM EST Routine [facility] [address] [place] [address] Andres Howell, DO [address] [place], [place] [id number] [facility] Start: 10-26-2024 End: 10-26-2025 ABO/Rh ABO/Rh Lab Routine Missed menses , unspecified gestational age Expected: 10/26/2024 (Approximate), Expires: 10/26/2025 [facility] Comment on above: Expected: 10/26/2024 (Approximate), Expires: 10/26/2025 Start: 10-26-2024 End: 10-26-2025 Blood type and Indirect antibody screen panel - Blood Type and screen Lab Routine Missed menses , unspecified gestational age Expected: 10/26/2024 (Approximate), Expires: 10/26/2025 [facility] Work Phone: Comment on above: Expected: 10/26/2024 (Approximate), Expires: 10/26/2025 Start: 10-26-2024 End: 10-26-2025 Drugs of abuse panel - Urine by Screen method Rapid drug screen, urine Lab Routine , unspecified gestational age Encounter for supervision of normal first in first trimester Expected: 10/26/2024 (Approximate), Expires: 10/26/2025 [facility] Comment on above: Expected: 10/26/2024 (Approximate), Expires: 10/26/2025 Bacteria identified in Urine by Culture Urine culture Microbiology Routine Missed menses Ordered: 10/26/2024 [facility] Comment on above: Ordered: 10/26/2024 CBC W Auto Different ial panel - Blood CBC and differential Lab Routine Missed menses , unspecified gestational age Ordered: 10/26/2024 [facility] Comment on above: Ordered: 10/26/2024 Hemoglobin A1c/Hemoglobin.total in Blood Hemoglobin A1c Lab Routine Missed menses , unspecified gestational age Ordered: 10/26/2024 [facility] Comment on above: Ordered: 10/26/2024 Hepatitis B virus surface Ag [Presence] in Serum or Plasma by Immunoassay Hepatitis B surface antigen Lab Routine Missed menses , unspecified gestational age Ordered: 10/26/2024 [facility] Comment on above: Ordered: 10/26/2024 Hepatitis C virus Ab [Presence] in Serum or Plasma by Immunoassay Hepatitis C antibody Lab Routine Missed menses , unspecified gestational age Ordered: 10/26/2024 [facility] Comment on above: Ordered: 10/26/2024 HIV-1/HIV-2 antigen/antibody combination immunoassay HIV-1 and HIV-2 antibodies Lab Routine Missed menses , unspecified gestational age Ordered: 10/26/2024 [facility] Comment on above: Ordered: 10/26/2024 Reagin Ab [Presence] in Serum by RPR RPR Lab Routine Missed menses , unspecified gestational age Ordered: 10/26/2024 [facility] Comment on above: Ordered: 10/26/2024 Rubella antibody, IgG Rubella an tibody, IgG Lab Routine Missed menses , unspecified gestational age Ordered: 10/26/2024 [facility] Comment on above: Ordered: 10/26/2024 Payers Date Payer Category Payer Private Health Insurance [facility] [id number] 1998 Unknown [id number] [id number]. 2.593 1998 Unknown [id number] 2.16.840.1.055475.3.579. 2.593 1998 Unknown [id number] 2.16.840.1.790686.3.579. 2.593 1998 Unknown [id number] 2.16.840.1.069741.3.579. 2.593 1998 Unknown [id number] 2.16.840.1.846698.3.579. 2.593 1998 Unknown [id number] 2.16.840.1.216513.3.579. 2.593 1998 Unknown [id number] 2.16.840.1.734617.3.579. 2.593 1998 Unknown [id number] 2.16.840.1.350422.3.579. 2.593 1998 Unknown [id number] 2.16.840.1.055298.3.579. 2.593 1998 Unknown [id number] 2.16.840.1.294672.3.579. 2.593 1998 Unknown [id number] 2.16.840.1.582797.3.579. 2.593 1998 Unknown [id number] 2.16.840.1.310696.3.579. 2.593 1998 Unknown [id number] 2.16.840.1.303089.3.579. 2.593 1998 Unknown [id number] 2.16.840.1.867023.3.579. 2.1259 1998 Unknown [id number] 2.16.840.1.824232.3.579. 2.1259 1959 Private Health Insurance [id number] Self-pay [id number] Unknown [id number] 2.16.840.1.906620.3.579. 2.593 Social History Date Type Detail Facility Tobacco smoking stat [facility] Tobacco smoking consumption unknown [facility] Start: 09-05-2024 [facility] Start: 1998 Sex assigned at Not on file [facility] Gender identity Not [facility] file [facility] History of Present illness Narrative 10-26-2024 Mervat Carrera MA - 10/26/2024 2:30 PM EST Note Date & Type Note Facility 10-26-2024 History of Presen t illness Narrative Reason for Appointment: Patient ID: Rosanne Choudhary is a 23 y.o. female who presents for Amenorrhea Patient presents today for a Nurse OB Intake appointment. Patient is 9w2d with a Estimated Date of Delivery: 05/29/25 OB History Para Term AB Living 3 2 2 2 SAB IAB Ectopic Multiple Live Births 2 # Outcome Date GA Lbr Paulino/2nd Weight Sex Type Anes PTL Lv 3 Current 2 Term 2020 39w5d 7 lb 15 oz F CS-Classical Spinal N IZZY 1 Term 2019 39w6d 8 lb 3 oz M CS-Classical Gen, EPI N IZZY Current Medications: currently has no medications in their medication list. Medical History: Active Ambulatory Problems Diagnosis Date Noted No Active Ambulatory Problems Resolved Ambulatory Problems Diagnosis Date Noted No Resolved Ambulatory Problems No Additional Past Medical History No family history on file. Social History Tobacco Use Smoking status: Not on file Smokeless tobacco: Not on file Substance Use Topics Alcohol use: Not on file Drug use: Not on file History reviewed. No pertinent surgical history. Allergies Allergen Reactions Omnicef [Cefdinir] Other Suprex Vitals: There is no height or weight on file to calculate BMI. BP: Patient's last menstrual period was 08/17/2024. Assessment/Plan Diagnoses and all orders for this visit: Missed menses - Type and screen; Future - ABO/Rh; Future - CBC and differential - Hemoglobin A1c - RPR - Rubella antibody, IgG - Hepatitis B surface antigen - Hepatitis C antibody - HIV-1 and HIV-2 antibodies - Urine culture - POCT , urine manually resulted - POCT urinalysis dipstick manually resulted , unspecified gestational age - Type and screen; Future - ABO/Rh; Future - CBC and differential - Hemoglobin A1c - RPR - Rubella antibody, IgG - Hepatitis B surface antigen - Hepatitis C antibody - HIV-1 and HIV-2 antibodies - Rapid drug screen, urine; Future Encounter for supervision of normal first in first trimester - Rapid drug screen, urine; Future Nurse Note: OB Intake: Patient presents today for first OB visit. Patients history has been reviewed in great detail including any potential risks. Patient signed consent forms and patient desires testing in both trimesters. Patient currently has no complaints and has been advised to drink 6-8 glasses of water a day, eat no raw or undercooked meat, and stay away from [facility]. Patient has also been advised to not change litter boxes and eat 6 small meals a day. Patient has been consulted regarding the do's and don'ts of . Patient was given labs and all questions and concerns were answered. Follow Up: Patient is to return in 4 weeks for routine OB appointment. Follow Up: Patient is to have labs drawn at directed and return to office for initial OB appointment with provider. Patient may call office as needed with any concerns or questions. Nurse Visit Completed by: Mervat Carrera MA documented in this encounter [facility] Discharge summary note 07-28-2021 Note Date & Type Note Facility 07-28-2021 Note DISCHARGE SUMMARY Discharge Date: 07-30-21 PRIMARY DIAGNOSIS: 1. Intrauterine at 39 weeks. 2. Previous Caesarean section. PROCEDURE: Repeat low transverse Caesarean section. CONSULTATION: Anesthesia. HOSPITAL COURSE: Was as expected, please see chart for full details. LABS: Please see chart. DISCHARGE CONDITION: Stable. DISCHARGE PLAN: ACTIVITY: Pelvic rest for 6 weeks. No heavy lifting for 6 weeks greater than [address] when pain free and no longer on narcotics. DIET: Regular. MEDICATIONS: Percocet, 5/325, 1-2 p.o. q4-5h p.r.n. pain. Motrin, 800, 1 p.o. q8h p.r.n. pain. FOLLOW-UP: In 1 week. The patient was instructed to return to the hospital with any vaginal bleeding greater than a period. Any fever unrelieved by Tylenol, any abdominal pain unrelieved with narcotics. [facility] Signed and Approved by: DR ANDRES HOWELL . 08/05/2021 16:10:00 [facility] Clinical Note 07-28-2021 Note Date & Type Note Facility 07-28-2021 Note OPERATIVE NOTE OPERATION DATE: 07-28-21 ANESTHETIC:Spinal with Duramorph. RADIOLOGICAL TECHNICIAN:ADRIANA Rodriguez PREOPERATIVE DIAGNOSIS: 1. Intrauterine at 39 weeks. 2. Previous Caesarean section. POSTOPERATIVE DIAGNOSIS:Same. PROCEDURE NAME:Repeat low transverse Caesarean section. URINE OUTPUT: Yellow and clear. BLOOD LOSS:700 mL. FINDINGS: Viable female, Apgars and weight unknown at this time. SPECIMEN:Placenta. PROCEDURE: Patient was taken back to the Operating Room where she was given a spinal anesthesia with Duramorph without difficulty. She was prepped and draped in the normal sterile fashion. A Pfannenstiel skin incision was then made 2 cm above the symphysis pubis and carried down to underlying rectus fascia using a Bovie. The fascia was incised in the midline and extended laterally using Morales scissors. Two Steven clamps were placed on the superior aspect of the fascia and dissected off the underlying rectus muscles. The same was performed on the inferior aspect as well. The muscles were then in the midline. Peritoneum was identified and entered bluntly. The peritoneum was then extended superiorly and inferiorly with good visualization of the bladder. The bladder blade was inserted. Vesicouterine peritoneum was identified, tented up, and entered with Metzenbaum scissors. A bladder flap was then created digitally. The bladder blade was reinserted. A low transverse incision was made on the patient's uterus and extended laterally digitally. The was then delivered atraumatically after the bladder blade was removed in the cephalic position. The cord was clamped and cut. Cord blood was obtained. The infant was handed off to awaiting team. The patient's placenta was spontaneously delivered. The uterus was then exteriorized. The uterus was cleared of all clots and debris. The bladder blade was reinserted. The patient's uterine incision was closed using #0 Vicryl in a running lock fashion. Excellent hemostasis was assured. The uterus was then returned to the patient's abdomen. The patient's abdomen was copiously irrigated using warm saline. Peritoneal gutters were cleared of all clots and debris. Again excellent hemostasis was assured. The patient's peritoneum was closed using 3-0 Vicryl in a running fashion. The patient's fascia was closed using #0 Vicryl in a running fashion. The patient's skin was closed using 4-0 Vicryl subcuticularly. The patient tolerated the procedure well. Sponge, lap, and needle counts were correct x2. The patient was taken to the Recovery Room in stable condition. [facility] Signed and Approved by: DR ANDRES HOWELL . 07/28/2021 18:54:00 [facility] Evaluation note Note Date & Type Note Facility Evaluation note Diagnosis Missed menses , unspecified gestational age Encounter for supervision of normal first in first trimester documented in this encounter [facility] Summary Purpose Family History No Family History Records FoundNo Family History Records Found Advance Directives No Advanced Directives Records FoundNo Advanced Directives Records Found Additional Source Comments INFORMATION SOURCE (unrecogn ized section and content) DATE CREATED AUTHOR 01/01/2022 [facility] pital DATE CREATED AUTHOR AUTHOR'S ORGANIZ ATION 10/28/2024 [facility] EPIC Reason for Visit (unrecogniz ed section and content) Reason Comments Amenorrhea Care Teams (unrecognized sec tion and content) 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 This clinical summary was aggregated from multiple sources. Caution should be exercised in using it in the provision of clinical care. This summary normalizes information from multiple sources, and as a consequence, information in this document may materially change the coding, format and clinical context of patient data. In addition, data may be omitted in some cases. CLINICAL DECISIONS SHOULD BE BASED ON THE PRIMARY CLINICAL RECORDS. [facility]. provides no warranty or guarantee of the accuracy or completeness of information in this document.
[2024-11-17 15:16] LABS: BOX Test Reference Lab UNITY; BOX Test Sent Out UNITY
[2024-11-17 15:30] LABS: Estimated Average Glucose 120 mg/dL; Glycohemoglobin A1C 5.8 % (4.5-6.2)
[2024-11-17 15:41] LABS: Basophils Percent Auto 0.2 % (0.2-2.0); Eosinophils Absolute Auto 0.1 10^3/uL (0.0-0.7); Eosinophils Percent Auto 0.8 % (0.9-7.0); Hematocrit 37.7 % (36.0-48.0); Hemoglobin 12.6 g/dL (12.0-16.0); Immature Granulocytes Abs Auto 0.02 10^3/uL (0.00-0.03); Immature Granulocytes Pct Auto 0.2 % (0.0-0.5); Lymphocytes Absolute Auto 1.8 10^3/uL (1.2-3.8); Lymphocytes Percent Auto 21.1 % (20.5-60.0); Mean Corpuscular HGB Conc 33.4 g/dL (29.9-35.2); Mean Corpuscular Hemoglobin 28.8 pg (26.7-34.0); Mean Corpuscular Volume 86.1 fL (81.0-99.0); Mean Platelet Volume 9.4 fL (9.5-13.5); Monocytes Absolute Auto 0.3 10^3/uL (0.3-0.8); Monocytes Percent Auto 3.9 % (1.7-12.0); Neutrophils Absolute Auto 6.2 10^3/uL (1.4-6.5); Neutrophils Percent Auto 73.8 % (43.0-75.0); Platelet Count 300 10^3/uL (150-450); Red Blood Count 4.38 10^6/uL (4.20-5.40); Red Cell Distribution Width 13.2 % (11.0-15.0); White Blood Count 8.4 10^3/uL (4.0-11.0)
[2024-11-17 15:52] LABS: Amphetamine Screen Urine NEGATIVE (NEGATIVE); Barbiturates Screen Urine NEGATIVE (NEGATIVE); Benzodiazepines Screen Urine NEGATIVE (NEGATIVE); Buprenorphine Screen Urine NEGATIVE (NEGATIVE); Cannabinoid Screen Urine NEGATIVE (NEGATIVE); Cocaine Screen Urine NEGATIVE (NEGATIVE); Methadone Screen Urine NEGATIVE (NEGATIVE); Methamphetamines Screen Urine NEGATIVE (NEGATIVE); Opiate Screen Urine NEGATIVE (NEGATIVE); Oxycodone Screen Urine NEGATIVE (NEGATIVE); Phencyclidine Screen Urine NEGATIVE (NEGATIVE); Tricyclic Antidepressant Urine NEGATIVE (NEGATIVE)
[2024-11-19 08:09] LABS: HBsAg Screen Negative (Negative); HCV Ab Non Reactive (Non Reactive); HIV Ab/p24 Ag Screen Non Reactive (Non Reactive)
[2024-11-19 09:09] LABS: Rapid Plasma Reagin, Quant Non Reactive titer (NonRea<1:1)
== END 2024-11-17 14:53 | disposition home or self-care (01) ==
LOC: LAB 14:53
PROVIDERS: PCP Family Medicine; Visit Provider Obstetrics & Gynecology
DX: Z34.01 Encounter for supervision of normal first pregnancy, first trimester (principal); Z36.0 Encounter for antenatal screening for chromosomal anomalies; N92.6 Irregular menstruation, unspecified
CPT/HCPCS: 36415; 80307; 83036; 85025; 86592; 86762; 86803; 86850; 86900; 86901; 87086; 87340; 87389

== ENCOUNTER 2024-12-15 08:37 | Outpatient (OUT) | payer OTHER, SELFPAY ==
[2024-12-15 10:10] LABS: Glucose 1 Hour 134 mg/dL (<130)
== END 2024-12-15 08:38 | disposition home or self-care (01) ==
LOC: LAB 08:37
PROVIDERS: PCP Family Medicine; Visit Provider Obstetrics & Gynecology
DX: Z13.1 Encounter for screening for diabetes mellitus (principal)
CPT/HCPCS: 36415; 82950

== ENCOUNTER 2024-12-20 07:32 | Outpatient (OUT) | payer OTHER, SELFPAY ==
--- OUTSIDE RECORDS SUMMARY | 2024-12-20 07:35 | XMS_ITS | CCD ---
Author Organization [facility] Care Team Providers Care Plating Inspector Name Role Phone DANTE, DR CAMPOS Admitting [...] BLANTON, DR SHILPI Rios Primary Care Unavailable DNATE, DR CAMPOS Consulting Unavailable DANTE, DR CAMPOS Admitting Unavailable DANTE, DR CAMPOS Attending Unavailable BLATNON, DR SHILPI Rios Primary Care Unavailable DANTE, DR CAMPOS Consulting Unavailable DANTE, DR CAMPOS Admitting Unavailable BLANTON, DR SHILPI Rios Primary Care Unavailable BLANTON, DR SHILPI Rios Attending Unavailable BLANTON, DR SHILPI Rios Admitting Unavailable ORLANDO, DR DARCY Mondragon Consulting Unavailable FRANNY, DR [...] Admitting Unavailable DANTE, DR CAMPOS Consulting Unavailable DATNE, DR CAMPOS Attending Unavailable DANTE, DR CAMPOS [...] DR SHILPI Rios Primary Care Unavailable Franny GARRETT, Shilpi Primary Care Provider ANDRES HOWELL Attending Unavailable Allergies Allergy Classification Reported Allergen(s) Allergy Type Date of Onset Reaction(s) Facility (1 source) cefdinir Drug Allergy [facility] (2 sources) Cephalosporins (Antibiotic) Drug allergy (disorder) [facility] (1 source) Dextrothyroxine Drug Allergy [facility] (5 sources) cefdinir Drug Allergy 5 [facility] (5 sources) Other Propensity to adverse reactions 5 [facility] Problems Active Problems Problem Classification Problem Date Documented Da te Episodic/Chronic Abdominal pain (4 sources) Right upper quadrant pain; Translations: [RIGHT UPPER QUADRANT PAIN] Onset: 12-26-2021 Episodic Menstrual disorders (1 source) Missed period; Translations: [Irregular menstruation, unspecified] 10-26-2024 Chronic Other and delivery including normal (20 sources) Encounter for routine follow-up; Translations: [Single live ] Onset: 01-13-2021 Episodic Residual codes; unclassified (2 sources) Gestation period, 13 weeks; Translations: [13 weeks gestation of ] 11-27-2024 Episodic Thyroid disorders (1 source) Hypothyroidism, unspecified; [...] Test Name Value Interpretation Reference Range Facility Urinalysis macro (dipstick) panel (U)on 11-27-2024 Bilirubin, UA Negative Negative - 4(70) +++ mg/dL [facility] Blood, UA Negative Negative - 50 Willard/mcL [facility] Clarity, UA Clear [facility] Color, UA Yellow [facility] Glucose, UA Negative Negative - 2000(110) ++++ mg/dL [facility] Interpretation and review of laboratory results Normal [facility] Ketones, UA Negative Negative - 160(16) ++++ mg/dL [facility] Leukocytes, UA Negative Negative - 500+++ Charlie/mcL [facility] Nitrite, UA Negative Negative - Positive [facility] pH, UA 5.5 5 - 9 [facility] Protein, UA Negative Negative - 2000(20) ++++ mg/dL [facility] Spec Grav, UA 1.005 1 - 1.03 [facility] Urobilinogen, UA 0.2 0.2 - 12 mg/dL [facility] MLR HEMOGLOBIN A1Con 025 Glucose [Mass/Vol] 120 mg/dL [facility] HbA1c (Bld) [Mass fraction] 5.8 % 4.5 - 6.2 % [facility] Comment on above: ADA RECOMMENDED LIMI T 4.0 - 6.0 ADA THERAPEUTIC TARGET < 7.0 ACTION SUGGESTED > 7.0 [facility] HCG ( test) Ql (U)o n 10-26-2024 Interpretation and review of laboratory results Abnormal [facility] Preg Test, Ur Positive Negative [facility] US OB TRANSVAGINALon 025 US OB TRANSVAGINAL [...] report is generated using voice recognition reporting ([employer]). On occasion, [employer] erroneously drops words from the report or [...] UA Negative Negative - 4(70) +++ mg/dL [facility] Blood, UA Negative Negative - 50 Willard/mcL [facility] Clarity, UA Clear [facility] Color, UA Yellow [facility] Glucose, UA Negative Negative - 2000(110) ++++ mg/dL [facility] Interpretation and review of laboratory results Normal [facility] Ketones, UA Negative Negative - 160(16) ++++ mg/dL [facility] Leukocytes, UA Negative Negative - 500+++ Charlie/mcL [facility] Nitrite, UA Negative Negative - Positive [facility] pH, UA 6.5 5 - 9 [facility] Protein, UA Negative Negative - 2000(20) ++++ mg/dL [facility] Spec Grav, UA 1.005 1 - 1.03 [facility] Urobilinogen, UA 0.2 0.2 - 12 mg/dL [facility] US SINGLE QUAD RT UPPERon US SINGLE [...] DARCY AU Date: 2021-12-26 16:10 Normal [facility] CBC AUTO DIFFon 07-29-2021 BASO # 0.0 103/ul Normal 0.0-0.1 [facility] Comment on above: Performed By: #### D RUGRPD #### [facility] [address] [place] [address] Dr. Brian Abdi Basophils/100 WBC (Bld) 0.2 % Normal 0.2-2.0 [facility] Comment on above: Performed By: #### D RUGRPD #### [facility] [address] [place] [address] Dr. Brian Abdi EO # 0.1 103/ul Normal 0.0-0.7 [facility] Comment on above: Performed By: #### D RUGRPD #### [facility] [address] [place] [address] Dr. Brian Abdi Eosinophils/100 WBC (Bld) 0.5 % Critically low 0.9-7.0 [facility] Comment on above: Performed By: #### D RUGRPD #### [facility] [address] [place] [address] Dr. Brian Abdi Erythrocyte distribution width (RBC) [Ratio] 13.9 % Normal 11.0-15.0 [facility] Comment on above: Performed By: #### D RUGRPD #### [facility] [address] [place] [address] Dr. Brian Abdi Hematocrit (Bld) [Volume fraction] 25.7 % Critically low 36.0-48.0 [facility] Comment on above: Performed By: #### D RUGRPD #### [facility] [address] [place] [address] Dr. Brian Abdi Hemoglobin (Bld) [Mass/Vol] 8.2 g/dL Critically low 12.0-16.0 [facility] Comment on above: Result Comment: SURESH ENT DELIVERED Performed By: #### D RUGRPD #### [facility] [address] [place] [address] Dr. Brian Abdi IG # 0.04 10e3/ul Critically high 0.00-0.03 [facility] Comment on above: Performed By: #### D RUGRPD #### [facility] [address] [place] [address] Dr. Brian Abdi IG % 0.4 % Normal 0.0-0.5 [facility] Comment on above: Performed By: #### D RUGRPD #### [facility] [address] [address] [address] Brian Abdi LYMPH # 2.4 103/ul Normal 1.2-3.8 [facility] Comment on above: Performed By: #### D RUGRPD #### [facility] [address] [place] [address] Dr. Brian Abdi Lymphocytes/100 WBC (Bld) 23.6 % Normal 20.5-60.0 [facility] Comment on above: Performed By: #### D RUGRPD #### [facility] [address] [place] [address] Dr. Brian Abdi MANUAL DIFF REQ NO Normal [facility] Comment on above: Performed By: #### D RUGRPD #### [facility] [address] [place] [address] Dr. Brian Abdi MCH (RBC) [Entitic mass] 27.6 pg Normal 26.7-34.0 [facility] Comment on above: Performed By: #### D RUGRPD #### [facility] [address] [place] [address] Dr. Brian Abdi MCHC (RBC) [Mass/Vol] 31.9 g/dL Normal 29.9-35.2 [facility] Comment on above: Performed By: #### D RUGRPD #### [facility] [address] [place] [address] Dr. Brian Abdi MCV (RBC) [Entitic vol] 86.5 fL Normal 81.0-99.0 [facility] Comment on above: Performed By: #### D RUGRPD #### [facility] [address] [place] [address] Dr. Brian Abdi MONO # 0.7 103/ul Normal 0.3-0.8 [facility] Comment on above: Performed By: #### D RUGRPD #### [facility] [address] [place] [address] Dr. Brian Abdi Monocytes/100 WBC (Bld) 7.3 % Normal 1.7-12.0 [facility] Comment on above: Performed By: #### D RUGRPD #### [facility] [address] [place] [address] Dr. Brian bAdi NEUT # 6.8 103/ul Critically high 1.4-6.5 [facility] [place] Comment on above: Performed By: #### D RUGRPD #### [facility] [address] [place] [address] Dr. Brian Abdi Neutrophils/100 WBC (Bld) 68.0 % Normal 43.0-75.0 [facility] Comment on above: Performed By: #### D RUGRPD #### [facility] [address] [place] [address] Dr. Brian Abdi Platelet mean volume (Bld) [Entitic vol] 9.8 fL Normal 9.5-13.5 [facility] Comment on above: Performed By: #### D RUGRPD #### [facility] [address] [place] [address] Dr. Brian Abdi PLT 204 103/ul Normal 150-450 [facility] Comment on above: Performed By: #### D RUGRPD #### [facility] [address] [place] [address] Dr. Brian Abdi RBC 2.97 106/ul Critically low 4.20-5.40 [facility] [place] Comment on above: Performed By: #### D RUGRPD #### [facility] [address] [place] [address] Dr. Brian Abdi WBC 10.0 103/ul Normal 4.0-11.0 [facility] Comment on above: Performed By: #### D RUGRPD #### [facility] [address] [place] [address] Dr. Brian Abdi CBC AUTO DIFFon 07-28-2021 BASO # 0.0 103/ul Normal 0.0-0.1 [facility] Comment on above: Performed By: #### H H #### [facility] [address] [id number] Sunithajack Ugalde Basophils/100 WBC (Bld) 0.3 % Normal 0.2-2.0 [facility] Comment on above: Performed By: #### H H #### [facility] [address] [address] Sunitha Tram EO # 0.0 103/ul Normal 0.0-0.7 [facility] Comment on above: Performed By: #### H H #### [facility] [address] [place], [place] [id number] Sunithajack Salesen Eosinophils/100 WBC (Bld) 0.6 % Critically low 0.9-7.0 [facility] Comment on above: Performed By: #### H H #### [facility] [address] [place] [address] Sunithajack Ugalde Erythrocyte distribution width (RBC) [Ratio] 14.1 % Normal 11.0-15.0 [facility] Comment on above: Performed By: #### H H #### [facility] [address] [place] [address] Sunithajack Salesen Hematocrit (Bld) [Volume fraction] 34.5 % Critically low 36.0-48.0 [facility] Comment on above: Performed By: #### H H #### [facility] [address] [place] [address] Sunitha Tram Hemoglobin (Bld) [Mass/Vol] 10.8 g/dL Critically low 12.0-16.0 [facility] Comment on above: Performed By: #### H H #### [facility] [address] [place], [place] [id number] Sunitha Tram IG # 0.02 10e3/ul Normal 0.00-0.03 [facility] Comment on above: Performed By: #### H H #### [facility] [address] [place] [address] Sunitha Tram IG % 0.3 % Normal 0.0-0.5 [facility] Comment on above: Performed By: #### H H #### [facility] [address] [place] [address] Sunithajack Ugalde LYMPH # 1.8 103/ul Normal 1.2-3.8 [facility] Comment on above: Performed By: #### H H #### [facility] [address] [place] [address] Sunithajack Ugalde Lymphocytes/100 WBC (Bld) 25.4 % Normal 20.5-60.0 [facility] Comment on above: Performed By: #### H H #### [facility] [address] [place] [address] Sunitha Tram MANUAL DIFF REQ NO Normal [facility] Comment on above: Performed By: #### H H #### [facility] [address] [place] [address] Sunithajack Salesen MCH (RBC) [Entitic mass] 27.3 pg Normal 26.7-34.0 [facility] Comment on above: Performed By: #### H H #### [facility] [address] [place] [address] Sunithajack Ugalde MCHC (RBC) [Mass/Vol] 31.3 g/dL Normal 29.9-35.2 [facility] Comment on above: Performed By: #### H H #### [facility] [address] [place] [address] Sunithajack Ugalde MCV (RBC) [Entitic vol] 87.3 fL Normal 81.0-99.0 [facility] Comment on above: Performed By: #### H H #### [facility] [address] [place] [address] Sunitha Tram MONO # 0.6 103/ul Normal 0.3-0.8 [facility] Comment on above: Performed By: #### H H #### [facility] [address] [place] [address] Sunitha Tram Monocytes/100 WBC (Bld) 8.7 % Normal 1.7-12.0 [facility] Comment on above: Performed By: #### H H #### [facility] [address] [place] [address] Sunitha Ugalde NEUT # 4.7 103/ul Normal 1.4-6.5 [facility] Comment on above: Performed By: #### H H #### [facility] [address] [place], [place] [id number] Sunitha Ugalde Neutrophils/100 WBC (Bld) 64.7 % Normal 43.0-75.0 [facility] Comment on above: Performed By: #### H H #### [facility] [address] [place] [address] Sunitha Ugalde Platelet mean volume (Bld) [Entitic vol] 9.8 fL Normal 9.5-13.5 [facility] Comment on above: Performed By: #### H H #### [facility] [address] [place] [address] Sunitha Ugalde PLT 240 103/ul Normal 150-450 [facility] Comment on above: Performed By: #### H H #### [facility] [address] [place] [address] Sunithajack Ugalde RBC 3.95 106/ul Critically low 4.20-5.40 [facility] Comment on above: Performed By: #### H H #### [facility] [address] [place] [address] Sunitha Ugalde WBC 7.3 103/ul Normal 4.0-11.0 [facility] Comment on above: Performed By: #### H H #### [facility] [address] [place] [address] Sunitha Tram DRUG SCREEN RAPID (URINE)on 07-28-2021 AMP Negative Normal NEGATIVE [facility] Comment on above: Performed By: #### D RUGRPD #### [facility] [address] [place] [address] Dr. Brian CARRANZA Negative Normal NEGATIVE [facility] Comment on above: Performed By: #### D SHARONRPD #### [facility] [address] [place] [address] Dr. Brina bAdi BUP Negative Normal NEGATIVE [facility] Comment on above: Performed By: #### D RUGRPD #### [facility] [address] [place] [address] Dr. Brian Abdi BZO Negative Normal NEGATIVE [facility] Comment on above: Performed By: #### D RUGRPD #### [facility] [address] [place] [address] Dr. Brian Abdi LISA Negative Normal NEGATIVE [facility] Comment on above: Performed By: #### D RUGRPD #### [facility] [address] [place] [address] Dr. Brian Abdi CUT-OFFS SEE BELOW Normal [facility] Comment on above: Result Comment: AMP (Amphetamine): 500ng/mL, BAR (Barbituates): 200 ng/mL, BZO (Benzodiazepines): 150 ng/mL, BUP (Buprenorphine): 10 ng/mL, LISA (Cocaine): 150 ng/mL, mAMP (Methamphetamine): 500 ng/mL, MTD (Methadone): 200 ng/mL, OPI (Opiates): 100 ng/mL, OXY (Oxycodone): 100 ng/mL, PCP (Phencyclidine): 25 ng/mL, PPX (Propoxyphene): 300 ng/mL, THC (Cannabinoids): 50 ng/mL, TCA (Trycyclic Antidepressants): 300 ng/mL Performed By: #### D RUGRPD #### [facility] [address] [place] [address] Dr. Brian Abdi DRUG CUT HEADER DRUG CLASS TEST SYSTEM CUT-OFF CONCENTRATIONS ARE FOLLOWS: Normal [facility] Comment on above: Performed By: #### D RUGRPD #### [facility] [address] [place] [address] Dr. Brian Abdi mAMP Negative Normal NEGATIVE [facility] Comment on above: Performed By: #### D RUGRPD #### [facility] [address] [place] [address] Dr. Brian Abdi MTD Negative Normal NEGATIVE [facility] Comment on above: Performed By: #### D RUGRPD #### [facility] [address] [place] [address] Dr. Brian Abdi OPI Negative Normal NEGATIVE [facility] Comment on above: Performed By: #### D RUGRPD #### [facility] [address] [place] [address] Dr. Brian Abdi OXY Negative Normal NEGATIVE [facility] Comment on above: Performed By: #### D RUGRPD #### [facility] [address] [place] [address] Dr. Brian Abdi PCP Negative Normal NEGATIVE [facility] Comment on above: Performed By: #### D RUGRPD #### [facility] [address] [place] [address] Dr. Brian Abdi PPX Negative Normal NEGATIVE [facility] Comment on above: Performed By: #### D RUGRPD #### [facility] [address] [place] [address] Dr. Brian Abdi TCA Negative Normal NEGATIVE [facility] Comment on above: Performed By: #### D RUGRPD #### [facility] [address] [place] [address] Dr. Brian Abdi THC Negative Normal NEGATIVE [facility] Comment on above: Performed By: #### D RUGRPD #### [facility] [address] [place] [address] Dr. Brian Abdi TYPE AND SCREENon 07-28-2021 TYPE AND SCREEN Negative Normal [facility] [place] Comment on above: Performed By: #### T NS #### [facility] [address] [place] [address] Dr. Brian Abdi UA (CLEAN/CATCH) BATTERY LOADER/MICRO I F IND.on 07-28-2021 Bilirubin Ql (U) Negative Normal NEGATIVE [facility] Comment on above: Performed By: #### H H #### [facility] [address] [place] [address] Sunitha Tram Clarity (U) CLEAR Normal CLEAR [facility] Comment on above: Performed By: #### H H #### [facility] [address] [place] [address] Sunitha Tram Color (U) LT. YELLOW Normal YELLOW [facility] Comment on above: Performed By: #### H H #### [facility] [address] [place] [address] Sunitha Tram Glucose Ql (U) Negative Normal NEGATIVE [facility] Comment on above: Performed By: #### H H #### [facility] [address] [place] [address] Sunitha Tram Hemoglobin Ql (U) Negative Normal NEGATIVE [facility] Comment on above: Performed By: #### H H #### [facility] [address] [place] [address] Sunitha Tram Ketones Ql (U) Negative Normal NEGATIVE [facility] Comment on above: Performed By: #### H H #### [facility] [address] [place] [address] Sunitha Tram LEUKOCYTES Negative Normal NEGATIVE [facility] Comment on above: Performed By: #### H H #### [facility] [address] [place] [address] Sunitha Tram Nitrite Ql (U) Negative Normal NEGATIVE [facility] Comment on above: Performed By: #### H H #### [facility] [address] [place] [address] Sunitha Tram pH (U) 6.0 [pH] Normal 5-9 [facility] Comment on above: Performed By: #### H H #### [facility] [address] [place] [address] Sunitha Tram SPEC GRAVITY <=1.005 Abnormal 1.005-<=1.025 [facility] Comment on above: Performed By: #### H H #### [facility] [address] [place] [address] Sunitha Tram UA PROTEIN Negative Normal NEGATIVE/ TRACE [facility] Comment on above: Performed By: #### H H #### [facility] [address] [place] [address] Sunitha Tram UR MICRO IND NOT INDICATED Normal [facility] [place] Comment on above: Performed By: #### H H #### [facility] [address] [place] [address] Sunitha Ugalde Urobilinogen Qn (U) 0.2 {Fito'U}/dL Normal 0.2 - 1. 0 [facility] Comment on above: Performed By: #### H H #### [facility] [address] [place], [place] [id number] Sunitha Ugalde [facility]on 06-28 SARS-CoV-2 (COVID-19) RNA JEROD+probe Ql (Unsp spec) Not detected Normal NOT DETECTED [facility] Comment on above: Result Comment: This test is not yet approved or cleared by the [place] FDA. When there are no FDA-approved or cleared tests available, and other criteria are met, FDA can make tests available under an emergency access mechanism called an Emergency Use Authorization (EUA). The EUA for this test is supported by the [place] of Health and Human Service's (HHS's) declaration [...] SARS-CoV-2. Performed By: #### D RUGRPD #### [facility] [address] [place] [address] Dr. Brian Abdi GROUP B STREP CULTUREon 06-27 S. agalactiae Ag Ql (Unsp spec) Culture Observations: GBS CALD TO TRAM TRAORE LPN@/ 21/RK Isolate 1 Streptococcus agalactiae Moderate growth of ORGANISM 1 Streptococcus agalactiae ANTIBIOTIC M.I.C RX STATUS Benzylpenicillin <=0.06 S F Ampicillin <=0.25 S F Cefotaxime <=0.12 S F Ceftriaxone <=0.12 S F Levofloxacin 0.5 S F Inducible Clindamycin Resistance Neg NEG F Erythromycin 2 R F Clindamycin <=0.25 S F Linezolid <=2 S F Vancomycin 0.5 S F Tetracycline <=0.25 S F Normal [facility] Comment on above: Performed By: #### G BSCX #### [facility] [address] [place] [address] Dr. Brian Abdi HEMOGRAM AND PLATELon 2020 Hematocrit (Bld) [Volume fraction] 33.7 % Critically low 36.0-48.0 [facility] Comment on above: Performed By: #### H H #### [facility] [address] [place] [address] Sunitha Tram Hemoglobin (Bld) [Mass/Vol] 10.8 g/dL Critically low 12.0-16.0 [facility] Comment on above: Performed By: #### H H #### [facility] [address] [place] [address] Sunitha Tram MCH (RBC) [Entitic mass] 28.3 pg Normal 26.7-34.0 [facility] Comment on above: Performed By: #### H H #### [facility] [address] [place] [address] Sunitha Tram MCHC (RBC) [Mass/Vol] 32.0 g/dL Normal 29.9-35.2 [facility] Comment on above: Performed By: #### H H #### [facility] [address] [place] [address] Sunitha Tram MCV (RBC) [Entitic vol] 88.2 fL Normal 81.0-99.0 [facility] Comment on above: Performed By: #### H H #### [facility] [address] [place] [address] Sunitha Tram PLT 252 103/ul Normal 150-450 [facility] Comment on above: Performed By: #### H H #### [facility] [address] [place], [place] [id number] Sunitha Tram RBC 3.82 106/ul Critically low 4.20-5.40 [facility] [place] Comment on above: Performed By: #### H H #### [facility] [address] [address] Sunitha Ugalde WBC 8.2 103/ul Normal 4.0-11.0 [facility] Comment on above: Performed By: #### H H #### [facility] [address] [id number] Sunitha Ugalde GLUCOSE - 1HRon 04-16-2021 Glucose [Mass/Vol] 129 mg/dL Critically high 74-106 [facility] Comment on above: Performed By: #### D RUGRPD #### [facility] [address] [place], [place] [address] Dr. Brian Abdi HEMOGLOBINon 04-16-2021 Hemoglobin (Bld) [Mass/Vol] 10.8 g/dL Critically low 12.0-16.0 [facility] Comment on above: Performed By: #### H H #### [facility] [address] [address] Sunitha Ugalde AFP MATERNAL FOR SPINA BIFID Aon 03-19-2021 AFP MoM 0.91 Normal [facility] Comment on above: Performed By: #### H H #### [facility] [address] [id number] Sunitha Ugalde AFP Value 47.2 ng/mL Normal [facility] Comment on above: Performed By: #### H H #### [facility] [address] [id number] Sunitha Ugalde AFP, Serum for Spina Bifida Report Normal [facility] Comment on above: Performed By: #### H H #### [facility] [address] [place] [address] Sunitha Ugalde Comment Comment Normal [facility] Comment on above: Result Comment: Isa Robles, Ph.D., [facility] Director . References: Available Upon Request. . Multiples Of Median Cutoffs For AFP Elevations Arroyo 2.5 Black 2.8 IDD 2.0 Twins 4.5 Abbreviation Definitions IDD - Insulin Dep Diabetes OSBR - Open Spina Bifida Risk . For further inquiries contact [employer] [facility] at [phone]. Performed By: #### H H #### [facility] [address] [address] Sunitha Ugalde Gest Age Collection Date 20.1 weeks Normal [facility] Comment on above: Performed By: #### H H #### [facility] [address] [place] [address] Sunitha Ugalde Gestat, Age Based on DEL Normal [facility] Comment on above: Result Comment: 03/2021 Recalculations are not recommended when gestational dating by LMP and ultrasound are within 10 days. Performed By: #### H H #### [facility] [address] [place] [address] Sunitha Ugalde Insulin Dep Diabetes No Normal [facility] Comment on above: Performed By: #### H H #### [facility] [address] [place] [address] Sunitha Ugalde Interpretation Comment Normal [facility] Comment on above: Result Comment: Inte rpretation: [...] Customer Services to discuss available options. The [employer] recommends amniocentesis be offered to women age 35 and older. Performed By: #### H H #### [facility] [address] [place] [address] Sunitha Ugalde [age] Normal [facility] Comment on above: Performed By: #### H H #### [facility] [address] [place] [address] Sunitha Ugalde Multiple Gestation No Normal [facility] Comment on above: Performed By: #### H H #### [facility] [address] [place] [address] Sunitha Ugalde OS[place] [address] Normal [facility] Comment on above: Performed By: #### H H #### [facility] [address] [address] Sunitha Ugalde PDF . Normal [facility] Comment on above: Performed By: #### H H #### [facility] [address] [address] Sunitha Ugalde Race Normal [facility] Comment on above: Performed By: #### H H #### [facility] [address] [address] Sunitha Ugalde Test Results: Negative Normal [facility] Comment on above: Performed By: #### H H #### [facility] [address] [address] Sunitha Ugalde US PREG ANATOMY SINGLEon US [...] by: TRENT LEE Date: 2021-03-17 11:10 Normal [facility] HEMOGLOBIN AND HEMATOCRITon 03-12-2021 Hematocrit (Bld) [Volume fraction] 34.4 % Critically low 36.0-48.0 [facility] Comment on above: Performed By: #### H H #### [facility] [address] [place] [address] Sunithajack Ugalde Hemoglobin (Bld) [Mass/Vol] 11.3 g/dL Critically low 12.0-16.0 [facility] Comment on above: Performed By: #### H H #### [facility] [address] [place] [address] Sunitha Ugalde CHLAMYDIA/GONOCOCCUS JEROD (SW AB/URINE/PAPon 02-28-2021 Chlamydia trachomatis, JEROD Negative Normal Negative [facility] Comment on above: Performed By: #### C T/NGNA #### [facility] [address] [place] [address] Sunithajack Salesen Neisseria gonorrhoeae, JEROD Negative Normal Negative [facility] Comment on above: Performed By: #### C T/NGNA #### [facility] [address] [place] [address] Sunithajack Ugalde PAP ACOG PANEL 2: 21 to 29on 02-28-2021 . . Normal [facility] Comment on above: Performed By: #### H H #### [facility] [address] [place], [place] [id number] Sunitha Ugalde Age Gdln ACOG Testing 21-29 Normal [facility] Comment on above: Performed By: #### H H #### [facility] [address] [place] [address] Sunitha Tram DIAGNOSIS: Comment Normal [facility] Comment on above: Result Comment: NEGA TIVE FOR INTRAEPITHELIAL LESION OR MALIGNANCY. Performed By: #### H H #### [facility] [address] [place], [place] [id number] Sunitha Tram Methodology: Comment Normal [facility] Comment on above: Result Comment: This liquid based ThinPrep(R) pap test was screened with the use of an image guided system. Performed By: #### H H #### [facility] [address] [place] [address] Sunitha Ugalde Note: Comment Normal [facility] Comment on above: Result Comment: The Pap smear is a screening test designed to aid in the detection of premalignant and malignant conditions of the uterine cervix. It is not a diagnostic procedure and should not be used as the sole means of detecting cervical cancer. Both false-positive and false-negative reports do occur. . Performed By: #### H H #### [facility] [address] [place] [address] Sunitha Ugalde Performed by: Comment Normal [facility] Comment on above: Result Comment: Aixa Betancur, Hunting Sales Leader (ASCP) Performed By: #### H H #### [facility] [address] [place] [address] Sunitha Ugalde Reflex Criteria: Comment Normal [facility] Comment on above: Result Comment: The HPV DNA reflex criteria were not met with this specimen result therefore, no HPV testing was performed. . Performed By: #### H H #### [facility] [address] [place] [address] Sunitha Ugalde Specimen adequacy: Comment Normal [facility] Comment on above: Result Comment: Sati sfactory for evaluation. No endocervical component is identified. Performed By: #### H H #### [facility] [address] [place] [address] Sunitha Ugalde VAGINITIS/VAGINOSIS DNA PROB Constantine 02-27-2021 Triica species Negative Normal Negative [facility] [place] Comment on above: Performed By: #### V AGINT #### [facility] [address] [place] [address] Sunitha Ugalde Gardnerella vaginalis Negative Normal Negative [facility] Comment on above: Performed By: #### V AGINT #### [facility] [address] [place] [address] Sunitha Ugalde Trichomonas vaginalis Negative Normal Negative [facility] Comment on above: Performed By: #### V AGINT #### [facility] [address] [place] [address] Sunitha Ugalde CULTURE URINEon 01-16-2021 CULTURE URINE [...] F Tetracycline <=0.25 S F Normal [facility] Comment on above: Performed By: #### D RUGRPD #### [facility] [address] [place] [address] Dr. Brian Abdi HEP B SURFACE ANTIGEN SCREEN on 01-14-2021 HBsAg Screen Negative Normal Negative [facility] Comment on above: Performed By: #### H BSANS #### [facility] [address] [place] [address] Sunitha Ugalde HEPATITIS C VIRUS AB W/ REFL EX QUANTon 01-14-2021 HCV AB 0.1 s/co ratio Normal 0.0-0.9 [facility] Comment on above: Performed By: #### H H #### [facility] [address] [place] [address] Sunitha Ugalde Interpretation: Comment Normal [facility] [place] Comment on above: Result Comment: Nega tive Not infected with HCV, unless recent infection is suspected or other evidence exists to indicate HCV infection. Performed By: #### H H #### [facility] [address] [place] [address] Sunitha Ugalde HIV 1 AND 2 WITH REFLEXon HIV Screen 4th Generation wRfx Non-Reactive Normal Non Reactive [facility] Comment on above: Performed By: #### D RUGRPD #### [facility] [address] [place] [address] Dr. Brian Abdi RPR QUANTon 01-14-2021 Rapid Plasma Reagin, Quant Non-Reactive Normal NonRea<1:1 [facility] Comment on above: Performed By: #### H H #### [facility] [address] [place] [address] Sunitha Ugalde RUBELLA AB IGGon 01-14-2021 Rubella Antibodies, IgG 1.27 index Normal Immune >0.99 [facility] Comment on above: Result Comment: Non- immune <0.90 Equivocal 0.90 - 0.99 Immune >0.99 Performed By: #### H H #### [facility] [address] [place] [address] Sunitha Ugalde CBC AUTO DIFFon 01-13-2021 BASO # 0.0 103/ul Normal 0.0-0.1 [facility] Comment on above: Performed By: #### C BC #### [facility] [address] [place] [address] Sunitha Ugalde Basophils/100 WBC (Bld) 0.4 % Normal 0.2-2.0 [facility] Comment on above: Performed By: #### C BC #### [facility] [address] [place] [address] Sunitha Ugalde EO # 0.1 103/ul Normal 0.0-0.7 [facility] Comment on above: Performed By: #### C BC #### [facility] [address] [place] [address] Sunitha Ugalde Eosinophils/100 WBC (Bld) 0.7 % Critically low 0.9-7.0 [facility] Comment on above: Performed By: #### C BC #### [facility] [address] [place] [address] Sunitha Ugalde Erythrocyte distribution width (RBC) [Ratio] 13.7 % Normal 11.0-15.0 [facility] Comment on above: Performed By: #### C BC #### [facility] [address] [place], [place] [id number] Sunitha Ugalde Hematocrit (Bld) [Volume fraction] 39.1 % Normal 36.0-48.0 [facility] Comment on above: Performed By: #### C BC #### [facility] [address] [place] [address] Sunithajack Ugalde Hemoglobin (Bld) [Mass/Vol] 12.7 g/dL Normal 12.0-16.0 [facility] Comment on above: Performed By: #### C BC #### [facility] [address] [place], [place] [id number] Sunitha Tram IG # 0.02 10e3/ul Normal 0.00-0.03 [facility] Comment on above: Performed By: #### C BC #### [facility] [address] [address] Sunitha Tram IG % 0.3 % Normal 0.0-0.5 [facility] Comment on above: Performed By: #### C BC #### [facility] [address] [place] [address] Sunitha Tram LYMPH # 1.6 103/ul Normal 1.2-3.8 [facility] Comment on above: Performed By: #### C BC #### [facility] [address] [place] [address] Sunitha Tram Lymphocytes/100 WBC (Bld) 21.6 % Normal 20.5-60.0 [facility] Comment on above: Performed By: #### C BC #### [facility] [address] [place], [place] [id number] Sunitha Tram MANUAL DIFF REQ NO Normal [facility] Comment on above: Performed By: #### C BC #### [facility] [address] [place], [place] [id number] Sunitha Tram MCH (RBC) [Entitic mass] 27.6 pg Normal 26.7-34.0 [facility] Comment on above: Performed By: #### C BC #### [facility] [address] [place], [place] [id number] Sunitha Tram MCHC (RBC) [Mass/Vol] 32.5 g/dL Normal 29.9-35.2 [facility] Comment on above: Performed By: #### C BC #### [facility] [address] [place], [place] [id number] Sunitha Tram MCV (RBC) [Entitic vol] 85.0 fL Normal 81.0-99.0 [facility] Comment on above: Performed By: #### C BC #### [facility] [address] [id number] Sunitha Tram MONO # 0.4 103/ul Normal 0.3-0.8 [facility] Comment on above: Performed By: #### C BC #### [facility] [address] [id number] Sunitha Tram Monocytes/100 WBC (Bld) 5.4 % Normal 1.7-12.0 [facility] Comment on above: Performed By: #### C BC #### [facility] [address] [place] [address] Sunitha Tram NEUT # 5.4 103/ul Normal 1.4-6.5 [facility] Comment on above: Performed By: #### C BC #### [facility] [address] [place] [address] Sunitha Tram Neutrophils/100 WBC (Bld) 71.6 % Normal 43.0-75.0 [facility] Comment on above: Performed By: #### C BC #### [facility] [address] [place], [place] [id number] Sunitha Tram Platelet mean volume (Bld) [Entitic vol] 9.3 fL Critically low 9.5-13.5 [facility] Comment on above: Performed By: #### C BC #### [facility] [address] [place], [place] [address] Sunitha Tram PLT 296 103/ul Normal 150-450 [facility] Comment on above: Performed By: #### C BC #### [facility] [address] [place] [address] Sunitha Tram RBC 4.60 106/ul Normal 4.20-5.40 [facility] Comment on above: Performed By: #### C BC #### [facility] [address] [place], [place] [id number] Sunitha Tram WBC 7.5 103/ul Normal 4.0-11.0 [facility] Comment on above: Performed By: #### C BC #### [facility] [address] [place], [place] [id number] Sunitha Tram GLYCOHEMOGLOBIN A1Con 2020 ADA RECOMMENDATION ADA THERAPEUTIC TARGET 6.0 - 7.0 ACTION SUGGESTED > 7.0 Normal [facility] Comment on above: Performed By: #### A 1C #### [facility] [address] [place] [address] Sunitha Ugalde Glucose [Mass/Vol] 111 mg/dL Normal [facility] Comment on above: Performed By: #### A 1C #### [facility] [address] [address] Sunitha Ugalde HbA1c (Bld) [Mass fraction] 5.5 % Normal <=6.0 [facility] Comment on above: Performed By: #### A 1C #### [facility] [address] [place] [address] Sunitha Ugalde BARBI BOX TEST PT SEND OUTo n 01-13-2021 SENT TO REF LAB 01/13/21 Normal [facility] Comment on above: Performed By: #### D RUGRPD #### [facility] [address] [place] [address] Dr. Brian Abdi TYPE AND SCREENon 01-13-2021 TYPE AND SCREEN Negative Normal [facility] Comment on above: Performed By: #### D RUGRPD #### [facility] [address] [place] [address] Dr. Brian Abdi Vital Signs Date Time Vital Sign Value Performing Clinician Facility 11-27-2024 14:37-0500 Body weight 96.53 kg Andres Dante DO Work Phone: [facility] 11-27-2024 14:37-0500 Diastolic blood pressure 70 mm[Hg] Andres Dante DO Work Phone: [facility] 11-27-2024 14:37-0500 Systolic blood pressure 122 mm[Hg] Andres Dante DO Work Phone: [facility] 10-26-2024 14:54-0500 Body weight 96.25 kg [facility] Nurse [facility] 03-19-2021 02:06-0400 Body weight 83.[address] ANDRES HOWELL [facility] Comment on above: Performed By: #### H H #### [facility] [address] [place], [place] [address] Sunitha Ugalde Encounters Encounter Date Encounter Type Care Provider Facility Start: 11-27-2024 End: 11-27-2024 flow sheet Andres Dante DO Work Phone: [facility] Comment on above: 13 weeks gestation o f ; Second trimester Start: 11-27-2024 End: 11-27-2024 ambulatory ANDRES DANTE Not Available Start: 11-27-2024 End: 11-27-2024 Bamboo flowsheet Andres Dante DO Work Phone: [facility] Start: 11-27-2024 End: 11-27-2024 Bamboo flowsheet Andres Dante DO Work Phone: [facility] Start: 11-17-2024 End: 11-17-2024 Clinisync Result Encounter Andres Dante DO Work Phone: [facility] Unsolicited Start: 11-17-2024 End: 11-17-2024 Clinisync Result Encounter Andres Dante DO Work Phone: [facility] Unsolicited Start: 10-26-2024 End: 10-26-2024 ambulatory ANDRES DANTE Not Available Start: 10-26-2024 End: 10-26-2024 Office outpatient visit 15 minutes [facility] Dante Nurse [facility] Comment on above: GA: 9w2d Start: 10-26-2024 End: 10-26-2024 ambulatory ANDRES DANTE Not Available Start: 12-26-2021 End: 12-27-[address] SHILPI BLANTON Facility:[facility] Start: 08-04-2021 End: 08-04-[address] ANDRES HOWELL Facility:[facility] Start: 07-28-2021 Evaluation and manag ement of inpatient ZENA QUEVEDO Facility:[facility] Start: 07-28-2021 End: 07-30-2021 Evaluation and management of inpatient DR ANDRES HOWELL Facility:[facility] Start: 07-25-2021 Encounter for preprocedural laboratory examination DR ANDRES HOWELL [facility] Start: 07-22-2021 End: 07-22-[address] ANDRES [...] Date Procedure Procedure Detail Performing Clinician Start: 11-27-2024 Urnls dip stick/tabl et rgnt non-auto w/o micrscp Andres Dante DO Work Phone: Start: 11-17-2024 MLR HEMOGLOBIN A1C Core y Dante DO Work Phone: Start: 10-26-2024 End: 10-26-2024 Urnls dip stick/tablet rgnt non-auto w/o micrscp Andres Dante DO Work Phone: Start: 07-28-2021 Extraction of Produc ts of Conception, Low Cervical, Open Approach DR ANDRES HOWELL Plan of Treatment Date Care Activity Detail Author Start: 12-26-2024 End: 12-26-2024 Patient encounter procedure 12/26/2024 1:50 PM EDT Routine [facility] [address] [address] Andres Howell, [address] [place] [address] [facility] Start: 11-27-2024 End: 11-27-2024 Patient encounter procedure [facility] Comment on above: Arrived Start: 10-26-2024 End: 10-26-2025 ABO/Rh ABO/Rh Lab Routine Missed menses , unspecified gestational age Expected: 10/26/2024 (Approximate), Expires: 10/26/2025 [facility] Comment on above: Expected: 10/26/2024 (Approximate), Expires: 10/26/2025 Start: 10-26-2024 End: 10-26-2025 Blood type and Indirect antibody screen panel - Blood Type and screen Lab Routine Missed menses , unspecified gestational age Expected: 10/26/2024 (Approximate), Expires: 10/26/2025 [facility] Work Phone: Comment on above: Expected: 10/26/2024 (Approximate), Expires: 10/26/2025 Start: 10-26-2024 End: 10-26-2025 Drugs of abuse panel - Urine by Screen method Rapid drug screen, urine Lab Routine , unspecified gestational age Encounter for supervision of normal first in first trimester Expected: 10/26/2024 (Approximate), Expires: 10/26/2025 [facility] Comment on above: Expected: 10/26/2024 (Approximate), Expires: 10/26/2025 Bacteria identified in Urine by Culture Urine culture Microbiology Routine Missed menses Ordered: 10/26/2024 [facility] Comment on above: Ordered: 10/26/2024 CBC W Auto Different ial panel - Blood CBC and differential Lab Routine Missed menses , unspecified gestational age Ordered: 10/26/2024 [facility] Comment on above: Ordered: 10/26/2024 Hemoglobin A1c/Hemoglobin.total in Blood Hemoglobin A1c Lab Routine Missed menses , unspecified gestational age Ordered: 10/26/2024 [facility] Comment on above: Ordered: 10/26/2024 Hepatitis B virus surface Ag [Presence] in Serum or Plasma by Immunoassay Hepatitis B surface antigen Lab Routine Missed menses , unspecified gestational age Ordered: 10/26/2024 [facility] Comment on above: Ordered: 10/26/2024 Hepatitis C virus Ab [Presence] in Serum or Plasma by Immunoassay Hepatitis C antibody Lab Routine Missed menses , unspecified gestational age Ordered: 10/26/2024 [facility] Comment on above: Ordered: 10/26/2024 HIV-1/HIV-2 antigen/antibody combination immunoassay HIV-1 and HIV-2 antibodies Lab Routine Missed menses , unspecified gestational age Ordered: 10/26/2024 [facility] Comment on above: Ordered: 10/26/2024 Reagin Ab [Presence] in Serum by RPR RPR Lab Routine Missed menses , unspecified gestational age Ordered: 10/26/2024 [facility] Comment on above: Ordered: 10/26/2024 Rubella antibody, IgG Rubella an tibody, IgG Lab Routine Missed menses , unspecified gestational age Ordered: 10/26/2024 [facility] Comment on above: Ordered: 10/26/2024 Payers Date Payer Category Payer Private Health Insurance [facility] [id number] 1998 Unknown [id number] 1998 Unknown [id number] [id number]. 2.593 1998 Unknown [id number] 2.1.886909.3.579. 2.593 1998 Unknown [id number] 2.16.840.1.797440.3.579. 2.593 1998 Unknown [id number] 2.16.840.1.041196.3.579. 2.593 1998 Unknown [id number] 2.16.840.1.016052.3.579. 2.593 1998 Unknown [id number] 2.16.840.1.788247.3.579. 2.593 1998 Unknown [id number] 2.16.840.1.675537.3.579. 2.593 1998 Unknown [id number] 2.16.840.1.380045.3.579. 2.593 1998 Unknown [id number] 2.16.840.1.209661.3.579. 2.593 1998 Unknown [id number] 2.16.840.1.553506.3.579. 2.593 1998 Unknown [id number] 2.16.840.1.222576.3.579. 2.593 1998 Unknown [id number] 2.16.840.1.698972.3.579. 2.593 1998 Unknown [id number] 2.16.840.1.728484.3.579. 2.1259 1998 Unknown [id number] 2.16.840.1.129404.3.579. 2.1259 1998 Unknown [id number] 2.16.840.1.296082.3.579. 2.1259 1959 Private Health Insurance [id number] 1959 Self-pay [id number] Unknown [id number] 2.16.840.1.409918.3.579. 2.593 Social History Date Type Detail Facility Tobacco smoking stat [facility] Tobacco smoking consumption unknown [facility] Start: 09-05-2024 [facility] Start: 1998 Sex assigned at Not on file [facility] Gender identity Not on file [facility] History of Present illness Narrative 11-27-2024 Katie Flowers, ART HISTORIAN - 11/27/2024 2:20 PM EST Note Date & Type Note Facility 11-27-2024 History of Presen t illness Narrative Reason for Appointment: Patient ID: Rosanne Belcher is a 23 y.o. female who presents for Routine Visit Patient presents today for Return OB appointment. MEDICATIONS No current outpatient medications ALLERGIES Allergies Allergen Reactions Omnicef [Cefdinir] Other Suprex PROBLEMS Active Ambulatory Problems Diagnosis Date Noted No Active Ambulatory Problems Resolved Ambulatory Problems Diagnosis Date Noted No Resolved Ambulatory Problems No Additional Past Medical History HISTORY PAST MEDICAL HISTORY SOCIAL HISTORY History reviewed. No pertinent past medical history. Social History Tobacco Use Smoking status: Not on file Smokeless tobacco: Not on file Substance Use Topics Alcohol use: Not on file Drug use: Not on file FAMILY HISTORY No family history on file. SURGICAL HISTORY Past Surgical History: Procedure Laterality Date SECTION, LOW TRANSVERSE SECTION, LOW TRANSVERSE REVIEW OF SYSTEMS Review of Systems: Review of Systems All other systems reviewed and are negative. OBJECTIVE Objective: Physical Exam Constitutional: Appearance: Normal appearance. She is well-developed. Cardiovascular: Rate and Rhythm: Normal rate and regular rhythm. Pulmonary: Effort: Pulmonary effort is normal. Breath sounds: Normal breath sounds. Abdominal: General: Bowel sounds are normal. There is no distension. Palpations: Abdomen is soft. Tenderness: There is no abdominal tenderness. There is no guarding or rebound. Musculoskeletal: General: No swelling. Normal range of motion. Right lower leg: No edema. Left lower leg: No edema. Neurological: Mental Status: She is alert and oriented to person, place, and time. Skin: General: Skin is warm and dry. Psychiatric: Mood and Affect: Mood normal. Behavior: Behavior normal. Vitals and nursing note reviewed. Exam conducted with a clip riveter present. Vitals: There is no height or weight on file to calculate BMI. BP: 122/70 Patient's last menstrual period was 08/17/2024. ASSESSMENT & PLAN ICD-10-CM 1. 13 weeks gestation of Z3A.13 POCT urinalysis dipstick manually resulted 2. Second trimester Z34.92 POCT urinalysis dipstick manually resulted Patient presents today for a routine obstetrics appointment. Patient is currently 13w6d with a Estimated Date of Delivery: 05/29/25. Patient aware that at next appointment she will be given order for MSAFP & have annual PAP/cultures obtained. Patient to return to clinic in 4 weeks. Documented by Katie Flowers LPN on behalf of: Andres Howell DO documented in this encounter [facility] History of Present illness Narrative 10-26-2024 Mervat Carrera MA - 10/26/2024 2:30 PM EST Note Date & Type Note Facility 10-26-2024 History of Presen t illness Narrative Reason for Appointment: Patient ID: Rosanne Belcher is a 23 y.o. female who presents [...] or undercooked meat, and stay away from [facility]. Patient has also been advised to not [...] Mervat Carrera MA documented in this encounter [facility] Discharge summary note 07-28-2021 Note Date & [...] Tylenol, any abdominal pain unrelieved with narcotics. [facility] Signed and Approved by: DR ANDRES HOWELL . 08/05/2021 16:10:00 [facility] Clinical Note 07-28-2021 Note Date & Type Note Facility 07-28-2021 Note OPERATIVE NOTE OPERATION DATE: 07-28-21 ANESTHETIC:Spinal with Duramorph. SUPERVISOR GENERAL:ADRIANA Rodriguez PREOPERATIVE DIAGNOSIS: 1. Intrauterine at 39 [...] patient's uterus and extended laterally digitally. The infant was then delivered atraumatically after the bladder [...] to the Recovery Room in stable condition. [facility] Signed and Approved by: DR ANRDES HOWELL . 07/28/2021 18:54:00 [facility] Evaluation note Note Date & Type Note Facility Evaluation note Diagnosis Missed menses , unspecified gestational age Encounter for supervision of normal first in first trimester documented in this encounter [facility] Evaluation note Note Date & Type Note Facility Evaluation note Diagnosis 13 weeks gestation of Second trimester state, incidental documented in this encounter [facility] Summary Purpose Family History No Family History Records FoundNo Family History Records Found Advance Directives No Advanced Directives Records FoundNo Advanced Directives Records Found Additional Source Comments INFORMATION SOURCE (unrecogn ized section and content) DATE CREATED AUTHOR 01/01/2022 [facility] DATE CREATED AUTHOR AUTHOR'S ORGANIZ ATION 11/28/2024 [facility] EPIC Reason for Visit (unrecogniz ed section and content) Reason Comments Amenorrhea Reason Comments Routine Visit Care Teams (unrecognized sec tion and content) Plating Inspector Relationship Specialty Start Date End Date Shilpi Blanton MD [address] [place] [address] PCP - General Family Medicine 10/26/24 Plating Inspector Relationship Specialty Start Date End Date Shilpi Blanton MD [address] [place] [address] PCP - General Family Medicine 10/26/24 Plating Inspector Relationship Specialty Start Date End Date Shilpi Blanton MD [address] [place] [address] PCP - General Family Medicine 10/26/24 FOR [...] BE BASED ON THE PRIMARY CLINICAL RECORDS. [facility] [employer] [facility]. provides no warranty or guarantee of the accuracy or completeness of information in this document.
[2024-12-20 08:29] LABS: Glucose Fasting 93 mg/dL (<95)
[2024-12-20 09:16] LABS: Glucose 1 Hour 141 mg/dL (<180)
[2024-12-20 10:55] LABS: Glucose 2 Hour 131 mg/dL (<155)
[2024-12-20 11:50] LABS: Glucose 3 Hour 99 mg/dL (<140)
== END 2024-12-20 07:33 | disposition home or self-care (01) ==
LOC: LAB 07:32
PROVIDERS: PCP Family Medicine; Visit Provider Obstetrics & Gynecology
DX: O26.892 Other specified pregnancy related conditions, second trimester (principal); Z3A.16 16 weeks gestation of pregnancy; R73.09 Other abnormal glucose
CPT/HCPCS: 36415; 82951; 82952

== ENCOUNTER 2025-03-07 14:51 | Outpatient (OUT) | payer OTHER, SELFPAY ==
--- OUTSIDE RECORDS SUMMARY | 2025-02-21 14:40 | XMS_ITS | Encounter Summary ---
Author Organization [facility] Healthcare Address [address] [place] [address] Care Team Providers Care Global Expansion Sales Director Name Role Phone Shilpi Alegria MD Primary Care Provider [phone] Reason for Visit * Reason Comments Routine Visit Encounter Details Date Type Department Care Team (Late st Contact Info) Description 02/21/2025 2:40 PM EDT Routine [facility] OB [address] [place] [address] Jim Howell, DO [address] [place], [facility] Second trimester ; 26 weeks gestation of ; Diabetes mellitus screening Social History Tobacco Use Types Packs/Day Years Used Date Smoking Tobacco: Never Assessed Estimated Date of Delivery Comme nts Yes 05/29/2025 Based on Ultraso und Sex and Gender Information Value Date Recorded Sex Assigned at Not on file Legal Sex Female 11:47 PM EDT Gender Identity Not on file Sexual Orientation Not on file documented as of this encounter Last Filed Vital Signs Vital Sign Reading Time Taken Comments Blood Pressure 106/72 02/21/2025 3:04 PM EDT Pulse - - Temperature - - Respiratory Rate - - Oxygen Saturation - - Inhaled Oxygen Concentration - - Weight 99.2 kg (218 lb 12 oz) 02/21/2025 3:04 PM EDT Height - - Body Mass Index - - documented in this encounter Progress Notes * Tram Dunbar LPN - 02/21/2025 2:40 PM EDT Reason for Appointment: Patient ID: Rosanne Choudhary is a 24 y.o. female who presents for Routine Visit Patient presents today for Return OB appointment. MEDICATIONS Current Outpatient Medications Medication Instructions Alcohol Swabs (Alcohol Prep Pad) 70 % pads 1 Pad, Topical, Daily, Use four times daily to check FSBS. Blood Glucose Monitoring Suppl ([employer] Glucometer) w/Device kit 1 kit, Does not apply, Daily, Use four times daily to check FSBS. In the morning prior to breakfast & 1 hour after each meal for a total of 4times daily. ALLERGIES Allergies Allergen Reactions Omnicef [Cefdinir] Other Suprex PROBLEMS Active Ambulatory Problems Diagnosis Date Noted No Active Ambulatory Problems Resolved Ambulatory Problems Diagnosis Date Noted No Resolved Ambulatory Problems No Additional Past Medical History HISTORY PAST MEDICAL HISTORY SOCIAL HISTORY No past medical history on file. Social History Tobacco Use Smoking status: Not on file Smokeless tobacco: Not on file Substance Use Topics Alcohol use: Not on file Drug use: Not on file FAMILY HISTORY No family history on file. SURGICAL HISTORY Past Surgical History: Procedure Laterality Date SECTION, LOW TRANSVERSE SECTION, LOW TRANSVERSE REVIEW OF SYSTEMS Review of Systems: Review of Systems Constitutional: Negative. HENT: Negative. Eyes: Negative. Respiratory: Negative. Cardiovascular: Negative. Gastrointestinal: Negative. Genitourinary: Negative. Musculoskeletal: Negative. Skin: Negative. Neurological: Negative. All other systems reviewed and are negative. Hematological: Negative. Endocrine: Negative. Allergic/Immunologic: Negative. OBJECTIVE Objective: Physical Exam Constitutional: Appearance: Normal appearance. She is well-developed and normal weight. HENT: Head: Normocephalic. Cardiovascular: Rate and Rhythm: Normal rate and regular rhythm. Pulses: Normal pulses. Pulmonary: Effort: Pulmonary effort is normal. Breath sounds: Normal breath sounds. Abdominal: General: Bowel sounds are normal. There is no distension. Palpations: Abdomen is soft. Tenderness: There is no abdominal tenderness. There is no guarding or rebound. Musculoskeletal: General: No swelling. Normal range of motion. Right lower leg: No edema. Left lower leg: No edema. Neurological: General: No focal deficit present. Mental Status: She is alert and oriented to person, place, and time. Skin: General: Skin is warm and dry. Psychiatric: Mood and Affect: Mood normal. Behavior: Behavior normal. Thought Content: Thought content normal. Judgment: Judgment normal. Vitals and nursing note reviewed. Exam conducted with a back tender cylinder present. Vitals: There is no height or weight on file to calculate BMI. BP: 106/72 Patient's last menstrual period was 08/17/2024. ASSESSMENT & PLAN ICD-10-CM 1. Second trimester Z34.92 POCT urinalysis dipstick manually resulted 2. 26 weeks gestation of Z3A.26 3. Diabetes mellitus screening Z13.1 CANCELED: CBC CANCELED: Glucose tolerance, 1 hour CANCELED: CBC CANCELED: Glucose tolerance, 1 hour Return OB: Patient presents today for a routine obstetrics appointment. Patient is currently 26w1d . Patient states she is doing well but has complaints of being tired due to current . Patient has verbalizes frequent movement. labor precautions was discussed/given and patient was instructed to perform kick counts three times a day. Orders Placed This Encounter Procedures POCT urinalysis dipstick manually resulted Follow Up: Patient is to return to office in 2 week for routine OB appointment. Documented by Tram Dunbar LPN on behalf of: Sera Osborne PA-C documented in this encounter Plan of Treatment Upcoming Encounters Date Type Department Care Team (Late st Contact Info) Description 03/07/2025 3:20 PM EDT Routine [facility] OB [address] [place] [address] DanteJim cesar, DO [address] [place] [address] documented as of this encounter Procedures Procedure Name Priority Date/Time Associated Diagnosis Comments POCT URINALYSIS DIPSTICK Routine 02/21/2025 3:16 PM EDT Second trimester documented in this encounter Results * POCT urinalysis dipstick manually resulted (02/21/2025 3:16 PM EDT) Color, UA Yellow Clarity, UA Clear Glucose, UA Negative Negative - 2000(110) ++++ mg/dL Bilirubin, UA Negative Negative - 4(70) +++ mg/dL Ketones, UA Negative Negative - 160(16) ++++ mg/dL Spec Grav, UA 1.010 1 - 1.03 Blood, UA Negative Negative - 50 Willard/mcL pH, UA 6.5 5 - 9 Protein, UA Negative Negative - 2000(20) ++++ mg/dL Urobilinogen, UA 0.2 0.2 - 12 mg/dL Leukocytes, UA Negative Negative - 500+++ Charlie/mcL Nitrite, UA Negative Negative - Positive Urine 02/21/2025 3:16 PM EDT Jim Howell DO POINT OF CARE TEST ENTER/EDIT OR DERABLES Final Result documented in this encounter Visit Diagnoses Diagnosis Second trimester state, incidental 26 weeks gestation of Diabetes mellitus screening Screening for diabetes mellitus documented in this encounter Care Teams Global Expansion Sales Director Relationship Specialty Start Date End Date Shilpi Alegria MD [facility] [place] [address] PCP - General Family Medicine 10/26/24 documented as of this encounter
--- OUTSIDE RECORDS SUMMARY | 2025-03-07 14:53 | XMS_ITS | Encounter Summary ---
Author Organization [facility] Address [address] [place] [address] Care Team Providers Care Ordering Box Operator Name Role Phone Shilpi Alegria MD Primary Care Provider [phone] Encounter Details Date Type Department Care Team (Late Contact Info) Description 11/17/2024 Abstract [facility] OB [address] [place] [phone] Jim Howell, DO [address] [place] [id number] Social History Tobacco Use Types Packs/Day Years Used Date Smoking Tobacco: Never Assessed Estimated Date of Delivery Comme nts Yes 05/29/2025 Based on Ultraso und Sex and Gender Information Value Date Recorded Sex Assigned at Not on file Legal Sex Female 11:47 PM EDT Gender Identity Not on file Sexual Orientation Not on file documented as of this encounter Plan of Treatment Upcoming Encounters Date Type Department Care Team (Late Contact Info) Description 03/07/2025 3:20 PM EDT Routine [facility] OB [address] [place] [phone] Jim Howell, DO [address] [place], [facility] documented as of this encounter Visit Diagnoses Not on filedocumented in this encounter Care Teams Ordering Box Operator Relationship Specialty Start Date End Date Shilpi Alegria MD [address] [facility] [place] [address] PCP - General Family Medicine 10/26/24 documented as of this encounter
--- OUTSIDE RECORDS SUMMARY | 2025-03-07 14:53 | XMS_ITS | Clinical Summary ---
Author Organization [facility] Healthcare Address [address] [place] [address] Care Team Providers Care Volunteer Services Coordinator Name Role Phone Shilpi Alegria MD Primary Care Provider [phone] Allergies Active Allergy Reactions Criticality Noted Date Comments Cefdinir 10/26/2024 Other 10/26/2024 Suprex Medications Alcohol Swabs (Alcohol Prep Pad) 70 % padsIndications: Gestational diabetes mellitus (GDM), antepartum, gestational diabetes method of control unspecified,Elev ated glucose tolerance test Apply 1 Pad topically Daily Use four times daily to check FSBS. 150 each 3 5 Active Blood Glucose Monitoring Suppl ([employer] Glucometer) w/Device kitIndications:G estational diabetes mellitus (GDM), antepartum, gestational diabetes method of control unspecified,Elev ated glucose tolerance test 1 kit Daily Use four times daily to check FSBS. In the morning prior to breakfast & 1 hour after each meal for a total of 4times daily. 1 kit 5 12/27/19 26 Active Encounters Date Type Department Care Team Description 03/06/2025 Travel 02/23/2025 Abstract [facility] OB [address] [place] [address] Jim Howell DO 02/21/2025 2:40 PM EDT Routine [facility] [place] [address] Jim Howell DO Second trimester ; 26 weeks gestation of ; Diabetes mellitus screening 02/21/2025 Bamboo flowsheet [facility] OB [address] [place] [phone] Jim Howell, 02/21/2025 Travel 01/23/2025 2:50 PM EDT Routine [facility] OB [facility] [place] [address] Jim Howell, Second trimester ; 22 weeks gestation of ; Diabetes mellitus screening 01/23/2025 Bamboo flowsheet [facility] OB [facility] [place] [address] Jim Howell, DO 01/10/2025 2:30 PM EDT Ancillary Procedure [facility] OB [facility] [place] [address] Screening, , for anatomic survey 01/09/2025 Travel 12/26/2024 1:50 PM EDT Routine [facility] [place] [address] Jim Howell, Second trimester ; 18 weeks gestation of ; Vaginal discharge; STD exposure; Well woman exam with routine gynecological exam; Gestational diabetes mellitus (GDM), antepartum, gestational diabetes method of control unspecified; Elevated glucose tolerance test; Screening, , for anatomic survey; Thyroid disorder screening 12/26/2024 External Result Encounter [facility] External Department Unsolicited Jim Howell, DO 12/26/2024 Bamboo flowsheet [facility] [place] [address] [place] [address] Jim Howell, DO 12/25/2024 Travel 12/20/2024 Clinisync Result Encounter [facility] External Department Unsolicited Jim Howell, DO 12/18/2024 Telephone [facility] OB [facility] [place] [address] Jim Howell, DO 12/15/2024 Clinisync Result Encounter [facility] External Department Unsolicited Jim Howell, DO from Last 3 Months Social History Tobacco Use Types Packs/Day Years Used Date Smoking Tobacco: Never Assessed Estimated Date of Delivery Comme nts Yes 05/29/2025 Based on Ultraso und Sex and Gender Information Value Date Recorded Sex Assigned at Not on file Legal Sex Female 11:47 PM EDT Gender Identity Not on file Sexual Orientation Not on file Last Filed Vital Signs Vital Sign Reading Time Taken Comments Blood Pressure 106/72 02/21/2025 3:04 PM EDT Pulse - - Temperature - - Respiratory Rate - - Oxygen Saturation - - Inhaled Oxygen Concentration - - Weight 99.2 kg (218 lb 12 oz) 02/21/2025 3:04 PM EDT Height - - Body Mass Index - - Plan of Treatment Upcoming Encounters Date Type Department Care Team (Late st Contact Info) Description 03/07/2025 3:20 PM EDT Routine [facility] [address] [place] [phone] Jim Howell, DO [address] [place] [address] Procedures Procedure Name Priority Date/Time Associated Diagnosis Comments POCT URINALYSIS DIPSTICK Routine 02/21/2025 3:16 PM EDT Second trimester POCT URINALYSIS DIPSTICK Routine 01/23/2025 3:06 PM EDT Second trimester 22 weeks gestation of US OB 14+ WEEKS ANATOMY SCAN Routine 01/10/2025 3:44 PM EDT Screening, , for anatomic survey POCT URINALYSIS DIPSTICK Routine 12/26/2024 4:48 PM EDT 18 weeks gestation of RECURRENT VAGINITIS (HTRX) Routine 12/26/2024 3:39 PM EDT GLUCOSE TOLERANCE 3 HOUR Routine 12/20/2024 7:41 AM EDT GLUCOSE 1 HOUR Routine 12/15/2024 9:38 AM EDT from Last 3 Months Results * POCT urinalysis dipstick manually resulted (02/21/2025 3:16 PM EDT) Only the most recent of3 resultswithin the time period is included. Color, UA Yellow Clarity, UA Clear Glucose, [...] - Positive Urine 02/21/2025 3:16 PM EDT [facility] POINT OF CARE TEST ENTER/EDIT OR DERABLES Final Result * US OB 14+ weeks anatomy scan (01/10/2025 3:44 PM EDT) Anatomical Region Laterality Modality Body Ultrasound 01/13/2025 6:48 PM EDT Narrative 01/13/2025 6:48 PM EDT EXAM: US OB 14+ WEEKS ANATOMY SCAN HISTORY: anatomy. COMPARISON: Ob ultrasound 10/26/2024. TECHNIQUE: Two-dimensional transabdominal grayscale ultrasound imaging of the pelvis was performed. FINDINGS: Gestation: Single Presentation: Cephalic Cardiac Activity: 145 beats per minute Placental Location: Posterior with no sonographic abnormalities identified. Distance from Placental Tip to Cervix: 4.0 cm Cervical Length: 4.5 cm Amniotic Fluid: Appears adequate MEASUREMENTS: BPD: 4.8 cm EGA: 20 weeks 4 days HC: 17.9 cm EGA: 20 weeks 2 days AC: 16.3 cm EGA: 21 weeks 3 days FL: 3.3 cm EGA: 20 weeks 2 days HC/AC Ratio: 1.09 The gestational age by today's ultrasound is 20 weeks 5 days (+/- 10 days gestation). Estimated Weight: 380 grams, +/- 57 grams ( 0 lb 13 oz). Weight Percentile for gestational age: 82 % ANATOMY C-Spine: Unremarkable T-Spine: Unremarkable L-Spine: Unremarkable Sacrum: Unremarkable Four Chamber Heart: Unremarkable LVOT: Unremarkable RVOT: Unremarkable Stomach: Unremarkable Kidneys: Unremarkable Bladder: Unremarkable Diaphragm: Unremarkable Cord insertion: Unremarkable Cord vessels: Three Lateral Ventricles: Unremarkable Cerebellum: Unremarkable Cisterna Magna: Unremarkable Posterior Fossa: Unremarkable Right Femur: Unremarkable Left Femur: Unremarkable Right Tib/Fib: Unremarkable Left Tib/Fib: Unremarkable Right Rad/Ulnar: Unremarkable Left Rad/Ulnar: Unremarkable Right Humerus: Unremarkable Left Humerus: Unremarkable Nose/Lips: Unremarkable Profile: Unremarkable Orbits: Unremarkable IMPRESSION: 1. Single, live intrauterine gestation 20 weeks, 1 days by LMP. Today's ultrasound measurements correlate with a gestational age of 20 weeks 5 days. Estimated weight is 380 grams, +/- 57 grams ( 0 lb 13 oz) which correlates to 82 %. DEL is 05/25/2025. 2. Unremarkable ultrasound of the anatomy. Interpreted by: Electronically signed by VICKY PUENTE II, MD, PHD at 13-Jan-2025 06:46:09 PM [facility] Procedure Note Vicky Puente MD - 01/13/2025 EXAM: US OB 14+ WEEKS ANATOMY SCAN HISTORY: anatomy. COMPARISON: Ob ultrasound 10/26/2024. TECHNIQUE: Two-dimensional transabdominal grayscale ultrasound imaging ofthe pelvis was performed. FINDINGS: Gestation: Single Presentation: Cephalic Cardiac Activity: 145 beats per minute Placental Location: Posterior with no sonographic abnormalitiesidentified. Distance from Placental Tip to Cervix: 4.0 cm Cervical Length: 4.5 cm Amniotic Fluid: Appears adequate MEASUREMENTS: BPD: 4.8 cm EGA: 20 weeks 4 days HC: 17.9 cm EGA: 20 weeks 2 days AC: 16.3 cm EGA: 21 weeks 3 days FL: 3.3 cm EGA: 20 weeks 2 days HC/AC Ratio: 1.09 The gestational age by today's ultrasound is 20 weeks 5 days (+/- 10 daysgestation). Estimated Weight: 380 grams, +/- 57 grams ( 0 lb 13 oz). Weight Percentile for gestational age: 82 % ANATOMY C-Spine: Unremarkable T-Spine: Unremarkable L-Spine: Unremarkable Sacrum: Unremarkable Four Chamber Heart: Unremarkable LVOT: Unremarkable RVOT: Unremarkable Stomach: Unremarkable Kidneys: Unremarkable Bladder: Unremarkable Diaphragm: Unremarkable Cord insertion: Unremarkable Cord vessels: Three Lateral Ventricles: Unremarkable Cerebellum: Unremarkable Cisterna Magna: Unremarkable Posterior Fossa: Unremarkable Right Femur: Unremarkable Left Femur: Unremarkable Right Tib/Fib: Unremarkable Left Tib/Fib: Unremarkable Right Rad/Ulnar: Unremarkable Left Rad/Ulnar: Unremarkable Right Humerus: Unremarkable Left Humerus: Unremarkable Nose/Lips: Unremarkable Profile: Unremarkable Orbits: Unremarkable IMPRESSION: 1. Single, live intrauterine gestation 20 weeks, 1 days by LMP. Today'sultrasound measurements correlate with a gestational age of 20 weeks 5days. Estimated weight is 380 grams, +/- 57 grams ( 0 lb 13 oz)which correlates to 82 %. DEL is 05/25/2025. 2. Unremarkable ultrasound of the anatomy. Interpreted by: Electronically signed by VICKY PUENTE II, MD, PHD 06:46:09 PM [facility] us Jim Dante DO IMG OB US PROCEDURES Final Resul t * RECURRENT VAGINITIS (HTRX) (12/26/2024 3:39 PM EDT) ATOPOBIUM VAGINAE 0.000 19.961 - 24.689 ppm 12/27/2024 6:13 AM EDT [facility] ATOPOBIUM VAGINAE Not Detected 19.961 - 24.689 ppm 12/27/2024 6:13 AM EDT [facility] BVAB 2,3 (BACTERIAL VAGINOSIS ASSOCIATED BACTERIA 2, 3); MOBILUNCUS SPP 0.000 19.961 - 24.689 ppm 12/27/2024 6:13 AM EDT [facility] BVAB 2,3 (BACTERIAL VAGINOSIS ASSOCIATED BACTERIA 2, 3); MOBILUNCUS SPP Not Detected 19.961 - 24.689 ppm 12/27/2024 6:13 AM EDT [facility] PEDRO ALBICANS, PARAPSILOSIS, TROPICALIS 0.000 19.961 - 30.770 ppm 12/27/2024 6:13 AM EDT [facility] PEDRO ALBICANS, PARAPSILOSIS, TROPICALIS Not Detected 19.961 - 30.770 ppm 12/27/2024 6:13 AM EDT [facility] PEDRO GLABRATA 0.000 23.000 - 32.138 ppm 12/27/2024 6:13 AM EDT [facility] PEDRO GLABRATA Not Detected 23.000 - 32.138 ppm 12/27/2024 6:13 AM EDT [facility] PEDRO KRUSEI 0.000 23.000 - 32.271 ppm 12/27/2024 6:13 AM EDT [facility] PEDRO KRUSEI Not Detected 23.000 - 32.271 ppm 12/27/2024 6:13 AM EDT [facility] CHLAMYDIA TRACHOMATIS 0.000 23.000 - 31.467 ppm 12/27/2024 6:13 AM EDT [facility] CHLAMYDIA TRACHOMATIS Not Detected 23.000 - 31.467 ppm 12/27/2024 6:13 AM EDT [facility] GARDNERELLA VAGINALIS 0.000 19.961 - 24.689 ppm 12/27/2024 6:13 AM EDT [facility] GARDNERELLA VAGINALIS Not Detected 19.961 - 24.689 ppm 12/27/2024 6:13 AM EDT [facility] MEGASPHAERA (TYPES 1, 2) 0.000 19.961 - 24.689 ppm 12/27/2024 6:13 AM EDT [facility] MEGASPHAERA (TYPES 1, 2) Not Detected 19.961 - 24.689 ppm 12/27/2024 6:13 AM EDT [facility] NEISSERIA GONORRHOEAE 0.000 23.000 - 32.117 ppm 12/27/2024 6:13 AM EDT [facility] NEISSERIA GONORRHOEAE Not Detected 23.000 - 32.117 ppm 12/27/2024 6:13 AM EDT [facility] TRICHOMONAS VAGINALIS 0.000 23.000 - 32.119 ppm 12/27/2024 6:13 AM EDT [facility] TRICHOMONAS VAGINALIS Not Detected 23.000 - 32.119 ppm 12/27/2024 6:13 AM EDT [facility] MYCOPLASMA GENITALIUM 0.000 19.961 - 24.689 ppm 12/27/2024 6:13 AM EDT [facility] MYCOPLASMA GENITALIUM Not Detected 19.961 - 24.689 ppm 12/27/2024 6:13 AM EDT [facility] Tissue 12/26/2024 3:39 PM EDT 12/27/2024 1:38 AM EDT Jim Dante DO LAB BLOOD ORDERABLES Final Resul t Performing Organization Address City/[facility]/ZIP Co de Phone Number [facility] [address] [place] [address] * GLUCOSE TOLERANCE 3 HOUR (12/20/2024 7:41 AM EDT) GLUCOSE TOLERANCE 3 HOUR mg/dL TB Comment: GLU FAST 93 (<95) Col: 12/20/24 0741 GLU 1HR 141 (<180) Col: 12/20/24 0849 GLU 2HR 131 (<155) Col: 12/20/24 0949 GLU 3HR 99 (<140) Col: 12/20/24 1052 12/20/2024 7:41 AM EDT 12/20/2024 7:43 AM EDT Narrative [facility] - 12/20/2024 12:02 PM EDT Jim Dante DO LAB BLOOD ORDERABLES Final Resul t [facility] * (ABNORMAL) GLUCOSE 1 HOUR (12/15/2024 9:38 AM EDT) GLUCOSE 1 HOUR 134(H) <130 mg/dL TB 12/15/2024 9:38 AM EDT 12/15/2024 9:40 AM EDT Narrative [facility] - 12/15/2024 10:15 AM EDT us Jim Howell DO LAB BLOOD ORDERABLES Final Resul t [facility] TB from Last [place] [address] Care Teams Volunteer Services Coordinator Relationship Specialty Start Date End Date Shilpi Alegria MD [address] [place] [phone] PCP - General Family Medicine 10/26/24
--- OUTSIDE RECORDS SUMMARY | 2025-03-07 14:53 | XMS_ITS | Clinical Summary ---
Author Organization [facility] Address [address] [place] [address] Phone Care Team Providers Care Delivery Man Name Role Phone Jaxon Alvarenga MD Primary Care Provider Shalonda vailable Social History Tobacco Use Types Packs/Day Years Used Date Smoking Tobacco: Never Assessed Comments Unknown Sex and Gender Information Value Date Recorded Sex Assigned at Not on file Legal Sex Female 12:29 AM EST Gender Identity Not on file Sexual Orientation Not on file Plan of Treatment Not on file Care Teams Delivery Man Relationship Specialty Start Date End Date Jaxon Alvarenga MD Retired From Practice Retired From Practice PCP - General 02/02/06
--- OUTSIDE RECORDS SUMMARY | 2025-03-07 14:53 | XMS_ITS | Encounter Summary ---
Author Organization [facility] Address [address] [place] [address] Care Team Providers Care Electric Meter Setter Name Role Phone Shilpi Alegria MD Primary Care Provider [phone] Encounter Details Date Type Department Care Team (Late Contact Info) Description 02/21/2025 Bamboo flowsheet [facility] OB [address] [place] [address] Jim Howell DO [address] [place] [address] Social History Tobacco Use Types Packs/Day Years [...] Description 03/07/2025 3:20 PM EDT Routine [facility] [address] [facility] [place] [address] Jim Howell, DO [address] [place], [facility] documented as of this encounter Visit Diagnoses Not on filedocumented in this encounter Care Teams Electric Meter Setter Relationship Specialty Start Date End Date Shilpi Alegria MD [address] [place] [phone] PCP - General Family Medicine 10/26/24 documented as of this encounter
--- OUTSIDE RECORDS SUMMARY | 2025-03-07 14:53 | XMS_ITS | Encounter Summary ---
Author Organization [facility] Address [address] [place] [address] Care Team Providers Care Software Developer Manager Name Role Phone Shilpi Alegria MD Primary Care Provider [phone] Encounter Details Date Type Department Care Team (Late Contact Info) Description 11/24/2024 Abstract [facility] OB [address] [place] [phone] Jim Howell, DO [address] [place] [id number] Social History Tobacco Use Types Packs/Day Years [...] Description 03/07/2025 3:20 PM EDT Routine [facility] OB [address] [place] [phone] Jim Howell, DO [address] [place], [facility] documented as of this encounter Visit Diagnoses Not on filedocumented in this encounter Care Teams Software Developer Manager Relationship Specialty Start Date End Date Shilpi Aelgria MD [address] [facility] [place] [address] PCP - General Family Medicine 10/26/24 documented as of this encounter
--- OUTSIDE RECORDS SUMMARY | 2025-03-07 14:53 | XMS_ITS | Encounter Summary ---
Author Organization [facility] Address [address] [place] [address] Care Team Providers Care Oracle Business Intelligence Developer Name Role Phone Shilpi Alegria MD Primary Care Provider [phone] Encounter Details Date Type Department Care Team (Latest Contact Info) Description 03/06/2025 Travel Social History Tobacco Use Types Packs/Day Years [...] PM EDT Routine [facility] [address] [place] [phone] Jim Howell, DO [address] [place] [place], [place] [phone] documented as of this encounter Visit Diagnoses Not on filedocumented in this encounter Care Teams Oracle Business Intelligence Developer Relationship Specialty Start Date End Date Shilpi Alegria MD [address] [place] [phone] PCP - General Family Medicine 10/26/24 documented as of this encounter
--- OUTSIDE RECORDS SUMMARY | 2025-03-07 14:53 | XMS_ITS | Encounter Summary ---
Author Organization [facility] Address [address] [place] [address] Care Team Providers Care Cryogenic Transport Driver Name Role Phone Shilpi Alegria MD Primary Care Provider Encounter Details Date Type Department Care Team (Latest Contact Info) Description 02/21/2025 Travel Social History Tobacco Use Types Packs/Day [...] BCP OB [address] [place] [phone] Jim Howell, DO [address] [place] [place], [place] [id number] documented as of this encounter Visit Diagnoses Not on filedocumented in this encounter Care Teams Cryogenic Transport Driver Relationship Specialty Start Date End Date Shilpi Alegria MD [address] [place] [phone] PCP - General Family Medicine 10/26/24 documented as of this encounter
--- OUTSIDE RECORDS SUMMARY | 2025-03-07 14:53 | XMS_ITS | Encounter Summary ---
Author Organization [facility] Address [address] [place] [address] Care Team Providers Care Oncology Nurse Name Role Phone Shilpi Alegria MD Primary Care Provider [phone] Encounter Details Date Type Department Care Team (Late Contact Info) Description 02/23/[address] [facility] OB [address] [place] [phone] Jim Howell, DO [address] [place] [id number] Social History Tobacco Use Types Packs/Day Years [...] Description 03/07/2025 3:20 PM EDT [facility] OB [address] [place] [phone] Jim Howell, DO [address] [place], [facility]11 documented as of this encounter Visit Diagnoses Not on filedocumented in this encounter Care Teams Oncology Nurse Relationship Specialty Start Date End Date Shilpi Alegria MD [address] [facility] [place] [address] PCP - General Family Medicine 10/26/24 documented as of this encounter
[2025-03-07 15:33] LABS: Basophils Percent Auto 0.2 % (0.2-2.0); Eosinophils Absolute Auto 0.1 10^3/uL (0.0-0.7); Hematocrit 33.6 % (36.0-48.0); Hemoglobin 11.1 g/dL (12.0-16.0); Immature Granulocytes Abs Auto 0.02 10^3/uL (0.00-0.03); Immature Granulocytes Pct Auto 0.2 % (0.0-0.5); Lymphocytes Absolute Auto 1.6 10^3/uL (1.2-3.8); Lymphocytes Percent Auto 17.6 % (20.5-60.0); Mean Corpuscular Hemoglobin 27.3 pg (26.7-34.0); Mean Corpuscular Volume 82.8 fL (81.0-99.0); Monocytes Absolute Auto 0.5 10^3/uL (0.3-0.8); Monocytes Percent Auto 6.1 % (1.7-12.0); Neutrophils Absolute Auto 6.6 10^3/uL (1.4-6.5); Neutrophils Percent Auto 74.9 % (43.0-75.0); Platelet Count 283 10^3/uL (150-450); Red Blood Count 4.06 10^6/uL (4.20-5.40); Red Cell Distribution Width 12.4 % (11.0-15.0); White Blood Count 8.9 10^3/uL (4.0-11.0)
== END 2025-03-07 14:52 | disposition home or self-care (01) ==
LOC: LAB 14:51
PROVIDERS: PCP Family Medicine; Visit Provider Obstetrics & Gynecology
DX: Z13.1 Encounter for screening for diabetes mellitus (principal)
CPT/HCPCS: 36415; 85025

== ENCOUNTER 2025-03-14 14:56 | Outpatient (OUT) | payer OTHER, SELFPAY ==
--- NOTE | 2025-03-14 | US_ITS ---
The [address] [address] Patient Name: EMILY BELCHER MRN: [id number] date: 2000 Sex: F Assigned Patient Location: US Current Patient Location: US Accession/Order Number: [id number] Exam Date: 03/14/2025 15:38 Report Date: 03/14/2025 15:41 At the request of: MAURICIO MCKEON Procedure: US OB growth Growth ultrasound. Reason for exam: Size and consistent with dates. COMPARISON: None. TECHNIQUE: Transabdominal imaging of the gravid uterus was obtained. FINDINGS: Single live intrauterine measuring 30 weeks 1 day by anatomic measurements. heart rate 149 bpm. [place] is normal at 14.85 cm. Estimated weight is 1374 g which is the 43rd percentile. position is cephalic at time of scanning. US/US OB growth IMPRESSION: Single live intrauterine 30 weeks 1 day by anatomic measurements. Impression dictated by: Guanaco Davenport Jr. DVerenice 03/14/2025 3:41 PM Dictation Location: [place] [address] Electronically authenticated by: [id number] Y Date: 03/14/2025 15:41
== END 2025-03-14 14:57 | disposition home or self-care (01) ==
LOC: US 14:56
PROVIDERS: PCP Family Medicine; Visit Provider Physician Assistant
DX: O26.843 Uterine size-date discrepancy, third trimester (principal); Z3A.30 30 weeks gestation of pregnancy
CPT/HCPCS: 76816

== ENCOUNTER 2025-05-01 12:16 | Outpatient (REF) | payer OTHER, SELFPAY ==
--- OUTSIDE RECORDS SUMMARY | 2025-03-21 08:30 | XMS_ITS | Encounter Summary ---
Author Organization [facility] Address [address] [place] [address] Care Team Providers Care Computer Systems Information Director Name Role Phone Shilpi Alegria MD Primary Care Provider [phone] Reason for Visit * Reason Comments Routine Visit Encounter Details Date Type Department Care Team (Late st Contact Info) Description 03/21/2025 8:30 AM EDT Routine [facility] [place] [facility] [address] [place] [address] Chichi Crooks NP [address] [facility] [address] [place] [address] Third trimester ([facility]) (Primary Dx); 30 weeks gestation of ([facility]); Elevated glucose tolerance test Social History Tobacco Use Types Packs/Day Years [...] Sign Reading Time Taken Comments Blood Pressure 120/60 03/21/2025 9:04 AM EDT Pulse - - Temperature - - Respiratory Rate - - Oxygen Saturation - - Inhaled Oxygen Concentration - - Weight 99.8 kg (220 lb) 03/21/2025 9:04 AM EDT Height - - Body Mass Index - - documented in this encounter Progress Notes * Chichi Crooks NP - 03/21/2025 8:30 AM EDT Reason for Appointment: Patient ID: Rosanne Choudhary is a 24 y.o. female who presents for Routine Visit Patient presents today for Return OB appointment. MEDICATIONS Current Outpatient Medications Medication Instructions Alcohol Swabs (Alcohol Prep Pad) 70 % pads 1 Pad, Topical, Daily, Use four times daily to check FSBS. Blood Glucose Monitoring Suppl (Experticity-1CloudStar Glucometer) w/Device kit 1 kit, Does not [...] nursing note reviewed. Exam conducted with a central office mechanic present. Vitals: There is no height or weight on file to calculate BMI. BP: Patient's last menstrual period was 08/17/2024. ASSESSMENT & PLAN ICD-10-CM 1. Third trimester ([facility]) Z34.93 POCT urinalysis dipstick manually resulted 2. 30 weeks gestation of ([facility]) Z3A.30 Return OB: Patient presents today for a routine obstetrics appointment. Patient is currently 30w1d . Patient states she is doing well but has complaints of being tired due to current . Patient has verbalizes frequent movement. labor precautions was discussed/given and patient was instructed to perform kick counts three times a day. Orders Placed This Encounter Procedures POCT urinalysis dipstick manually resulted Follow Up: Patient is to return to office in 2 week for routine OB appointment. Patient measuring size inconsistent with dates will repeat ultrasound in 4 weeks. Documented by Chichi Crooks NP on behalf of: Chichi Crooks NP documented in this encounter Miscellaneous Notes * Addendum Note - Chichi Crooks NP - 03/21/2025 8:30 AM EDTAddended by: CHICHI CROOKS on: 04/18/2025 10:13 AM Modules accepted: Orders documented in this encounter Plan of Treatment Upcoming Encounters Date Type Department Care Team (Late st Contact Info) Description 05/08/2025 11:20 AM EDT Routine [facility] [address] [place] [phone] Sera Osborne PA [address] [place] [address] 05/17/2025 8:00 AM EDT Ancillary Procedure [facility] [address] [facility] [place] [phone] documented as of this encounter Procedures Procedure Name Priority Date/Time Associated Diagnosis Comments POCT URINALYSIS DIPSTICK Routine 03/21/2025 8:43 AM EDT Third trimester ([facility]) documented in this encounter Results * US OB follow up transabdominal approach (04/19/2025 8:35 AM EDT) Anatomical Region Laterality Modality Body Ultrasound 04/24/2025 11:0 3 AM EDT Impressions 04/24/2025 11:27 AM EDT 1. Single, live intrauterine , current sonographic age of 35 weeks and 4 days, with an estimated date of delivery of May 20, 2025. Prior examination of January 10, 2025 resulted in DEL of May 25, 2025. 2. Estimated weight 2745 grams TRANSCRIBED BY: ELECTRONICALLY SIGNED BY: Guanaco Coughlin MD Narrative 04/24/2025 11:27 AM EDT FINDINGS: A single, live intrauterine is present with normal cardiac rate of 168 beats per minute. Normal activity and amniotic fluid volume. Amniotic fluid index is 14.7 cm. Morphology is grossly normal. The current sonographic age is 35 weeks and 4 days, based on the following measurements: BPD 8.7 cm (35 weeks, 2 days) Head Circumference 32.8 cm (37 weeks, 2 days) Abdominal Circumference 32.7 cm (36 weeks, 4 days) Femur Length 6.5 cm (33 weeks, 2 days) Presentation Cephalic These measurements result in an estimated date of delivery of May 20, 2025. The current estimated weight is 2745 grams +/- 411 grams (6 pounds, 1 ounce). Procedure Note Guanaco Coughlin MD - 04/24/2025 FINDINGS: A single, live intrauterine is present with normal cardiacrate of 168 beats per minute. Normal activity and amniotic fluidvolume. Amniotic fluid index is 14.7 cm. Morphology is grossly normal.The current sonographic age is 35 weeks and 4 days, based on the followingmeasurements: BPD 8.7 cm (35 weeks, 2 days) Head Circumference 32.8 cm (37 weeks, 2 days) Abdominal Circumference 32.7 cm (36 weeks, 4 days) Femur Length 6.5 cm (33 weeks, 2 days) Presentation Cephalic These measurements result in an estimated date of delivery of April. The current estimated weight is 2745 grams +/- 411 grams (6pounds, 1 ounce). IMPRESSION: 1. Single, live intrauterine , current sonographic age of 35weeks and 4 days, with an estimated date of delivery of May 20, 2025.Prior examination of January 10, 2025 resulted in DEL of May 25, 2025. 2. Estimated weight 2745 grams TRANSCRIBED BY: ELECTRONICALLY SIGNED BY: Guanaco Coughlin MD Chichi Crooks NP IMG OB US PROCEDURES Final Re sult * POCT urinalysis dipstick manually resulted (03/21/2025 8:43 AM EDT) Color, UA Yellow Clarity, UA Clear Glucose, UA Negative Negative - 2000(110) ++++ mg/dL Bilirubin, UA Negative Negative - 4(70) +++ mg/dL Ketones, UA Negative Negative - 160(16) ++++ mg/dL Spec Grav, UA 1.015 1 - 1.03 Blood, UA Negative Negative - 50 Willard/mcL pH, UA 6.5 5 - 9 Protein, UA Negative Negative - 2000(20) ++++ mg/dL Urobilinogen, UA 0.2 0.2 - 12 mg/dL Leukocytes, UA Negative Negative - 500+++ Charlie/mcL Nitrite, UA Negative Negative - Positive Urine 03/21/2025 8:43 AM EDT Chichi Crooks NP POINT OF CARE TEST ENTER/EDIT ORDERABLES Final Result documented in this encounter Visit Diagnoses Diagnosis Third trimester ([facility])- Primary state, incidental 30 weeks gestation of ([facility]) Elevated glucose tolerance test Impaired glucose tolerance test Third trimester ([facility]) state, incidental 30 weeks gestation of ([facility]) Elevated glucose tolerance test Impaired glucose tolerance test documented in this encounter Care Teams Computer Systems Information Director Relationship Specialty Start Date End Date Shilpi Alegria MD [address] [place] [phone] PCP - General Family Medicine 10/26/24 documented as of this encounter
--- OUTSIDE RECORDS SUMMARY | 2025-04-19 08:00 | XMS_ITS | Encounter Summary ---
Author Organization [facility] Address [address] [place] [address] Care Team Providers Care Reaming Press Operator Name Role Phone Shilpi Alegria MD Primary Care Provider [phone] Encounter Details Date Type Department Care Team (Latest Contact Info) Description 04/19/2025 8:00 AM EDT Ancillary Procedure [facility] [address] [place] [address] Third trimester ([facility]); 30 weeks gestation of ([facility]); Elevated glucose tolerance test Social History [...] Info) Description 05/08/2025 11:20 AM EDT Routine [facility] [place] [address] Sera Osborne PA [address] [place], [facility] 05/17/2025 8:00 AM EDT Ancillary Procedure [facility] [address] [place] [address] documented as of this encounter Procedures Procedure Name Priority Date/Time Associated Diagnosis Comments US OB FOLLOW UP TRANSABDOMINAL APPROACH Routine 04/19/2025 8:35 AM EDT Third trimester ([facility]) 30 weeks gestation of ([facility]) Elevated glucose tolerance test documented in this encounter Results * US [...] BY: ELECTRONICALLY SIGNED BY: Guanaco Coughlin MD us Kamila Crooks CANE FLUME FEEDING MACHINE OPERATOR IMG OB US PROCEDURES Final Re sult documented in this encounter Visit Diagnoses Diagnosis Third trimester ([facility]) state, incidental 30 weeks gestation of ([facility]) Elevated glucose tolerance test Impaired glucose tolerance test documented in this encounter Care Teams Reaming Press Operator Relationship Specialty Start Date End Date Shilpi Alegria MD [address] [place] [phone] PCP - General Family Medicine 10/26/24 documented as of this encounter
--- OUTSIDE RECORDS SUMMARY | 2025-04-19 08:30 | XMS_ITS | Encounter Summary ---
Author Organization [facility] Address [address] [place] [address] Care Team Providers Care Biological Photographer Name Role Phone Shilpi Alegria MD Primary Care Provider [phone] Reason for Visit * Reason Comments Routine Visit Encounter Details Date Type Department Care Team (Late st Contact Info) Description 04/19/2025 8:30 AM EDT Routine [facility] [address] [address] Sera Osborne PA [address] [facility] [place] [address] 34 weeks gestation of ([facility]); Third trimester ([facility]) Social History Tobacco Use Types Packs/Day Years [...] Sign Reading Time Taken Comments Blood Pressure 120/68 04/19/2025 8:43 AM EDT Pulse - - Temperature - - Respiratory Rate - - Oxygen Saturation - - Inhaled Oxygen Concentration - - Weight 102 kg (225 lb) 04/19/2025 8:43 AM EDT Height - - Body Mass Index - - documented in this encounter Progress Notes * ROB Rosenbaum - 04/19/2025 8:30 AM EDT Reason for Appointment: Patient ID: Rosanne Choudhary is a 24 y.o. female who presents for Routine Visit Patient presents today for Return OB appointment. MEDICATIONS Current Outpatient Medications Medication Instructions Alcohol Swabs (Alcohol Prep Pad) 70 % pads 1 Pad, Topical, Daily, Use four times daily to check FSBS. Blood Glucose Monitoring Suppl (HQ plus Glucometer) w/Device kit 1 kit, Does not [...] Exam Constitutional: Appearance: Normal appearance. She is normal weight. HENT: Head: Normocephalic. Cardiovascular: Rate and Rhythm: Normal rate. Pulses: Normal pulses. Pulmonary: Effort: Pulmonary effort is normal. Breath sounds: Normal breath sounds. Abdominal: Palpations: Abdomen is soft. Musculoskeletal: General: Normal range of motion. Neurological: General: No focal deficit present. Mental Status: She is alert and oriented to person, place, and time. Psychiatric: Mood and Affect: Mood normal. Behavior: Behavior normal. Thought Content: Thought content normal. Judgment: Judgment normal. Vitals and nursing note reviewed. Vitals: There is no height or weight on file to calculate BMI. BP: 120/68 Patient's last menstrual period was 08/17/2024. ASSESSMENT & PLAN ICD-10-CM 1. 34 weeks gestation of ([facility]) Z3A.34 POCT urinalysis dipstick manually resulted 2. Third trimester ([facility]) Z34.93 POCT urinalysis dipstick manually resulted Return OB: Patient presents today for a routine obstetrics appointment. Patient is currently 34w2d . Patient states she is doing well but has complaints of being tired due to current . Patient has verbalizes frequent movement. labor precautions was discussed/given and patient was instructed to perform kick counts three times a day. Orders Placed This Encounter Procedures POCT urinalysis dipstick manually resulted Follow Up: Patient is to return to office in 1 week for routine OB appointment. Documented by ROB Rosenbaum on behalf of: ROB Rosenbaum documented in this encounter Plan of Treatment Upcoming Encounters Date Type Department Care Team (Late st Contact Info) Description 05/08/2025 11:20 AM EDT Routine [facility] [address] [place] [phone] Sera Osborne PA [address] [facility] [place] [address] 05/17/2025 8:00 AM EDT Ancillary Procedure [facility] [address] [facility] [place] [phone] documented as of this encounter Procedures Procedure Name Priority Date/Time Associated Diagnosis Comments POCT URINALYSIS DIPSTICK Routine 04/19/2025 8:50 AM EDT 34 weeks gestation of ([facility]) Third trimester ([facility]) documented in this encounter Results * POCT urinalysis dipstick manually resulted (04/19/2025 8:50 AM EDT) Color, UA Yellow Clarity, UA Clear Glucose, UA Negative Negative - 2000(110) ++++ mg/dL Bilirubin, UA Negative Negative - 4(70) +++ mg/dL Ketones, UA Negative Negative - 160(16) ++++ mg/dL Spec Grav, UA 1.010 1 - 1.03 Blood, UA Negative Negative - 50 Willard/mcL pH, UA 6.0 5 - 9 Protein, UA Negative Negative - 1999(20) ++++ mg/dL Urobilinogen, UA 1.0 0.2 - 12 mg/dL Leukocytes, UA Negative Negative - 500+++ Charlie/mcL Nitrite, UA Negative Negative - Positive Urine 04/19/2025 8:50 AM EDT Sera RIVAS POINT OF CARE TEST ENTER/EDIT OR DERABLES Final Result documented in this encounter Visit Diagnoses Diagnosis 34 weeks gestation of ([facility]) Third trimester ([facility]) state, incidental documented in this encounter Care Teams Biological Photographer Relationship Specialty Start Date End Date Shilpi Alegria MD [address] [place] [phone] PCP - General Family Medicine 10/26/24 documented as of this encounter
--- OUTSIDE RECORDS SUMMARY | 2025-05-01 09:10 | XMS_ITS | Encounter Summary ---
Author Organization [facility] Address [address] [place] [address] Care Team Providers Care Promotions Assistant Sales Marketing Name Role Phone Shilpi Alegria MD Primary Care Provider [phone] Encounter Details Date Type Department Care Team (Late st Contact Info) Description 05/01/2025 9:10 AM EDT Routine [facility] [address] [facility] [place] [phone] Jim Howell DO [address] [facility] [address] Devin [place], [facility]11 36 weeks gestation of ([facility]); Third trimester ([facility]); H/O section Social History Tobacco Use Types Packs/Day Years [...] Sign Reading Time Taken Comments Blood Pressure 130/82 05/01/2025 9:17 AM EDT Pulse - - Temperature - - Respiratory Rate - - Oxygen Saturation - - Inhaled Oxygen Concentration - - Weight 103 kg (227 lb 6.4 oz) 05/01/2025 9:17 AM EDT Height - - Body Mass Index - - documented in this encounter Progress Notes * Tram Dunbar LPN - 05/01/2025 9:10 AM EDT Reason for Appointment: Patient ID: Rosanne Choudhary is a 24 y.o. female who presents for No chief complaint on file. Patient presents today for Return OB appointment. MEDICATIONS Current Outpatient Medications Medication Instructions Alcohol Swabs (Alcohol Prep Pad) 70 % pads 1 Pad, Topical, Daily, Use four times daily to check FSBS. Blood Glucose Monitoring Suppl ([employer] Glucometer) w/Device kit 1 kit, Does not [...] Constitutional: Appearance: Normal appearance. She is well-developed. Genitourinary: Vulva normal. Cardiovascular: Rate and Rhythm: Normal rate and [...] nursing note reviewed. Exam conducted with a credit front office developer present. Vitals: There is no height or weight on file to calculate BMI. BP: 130/82 Patient's last menstrual period was 08/17/2024. ASSESSMENT & PLAN ICD-10-CM 1. 36 weeks gestation of ([facility]) Z3A.36 POCT urinalysis dipstick manually resulted 2. Third trimester ([facility]) Z34.93 POCT urinalysis dipstick manually resulted CULTURE, GROUP B STREP WITH SUSCEPTIBLITY CULTURE, GROUP B STREP WITH SUSCEPTIBLITY 3. H/O section Z98.891 Patient is doing well but has complaints of being tired and having maternal discomfort due to . Patient verbalized frequent movement and was instructed to perform kick counts three times per day. labor precautions were given, LARC consent was signed/declined, and GBS was obtained. Orders Placed This Encounter Procedures CULTURE, GROUP B STREP WITH SUSCEPTIBLITY POCT urinalysis dipstick manually resulted Follow Up: Patient is to return to office in 1 week for routine OB appointment Documented by Tram Dunbar LPN on behalf of: Jmi Howell DO documented in this encounter Plan of Treatment Upcoming Encounters Date Type Department Care Team (Late st Contact Info) Description 05/08/2025 11:20 AM EDT Routine [facility] [address] [facility] [place] [address] Sera Osborne PA [address] [facility] [place] [address] 05/17/2025 8:00 AM EDT Ancillary Procedure [facility] [address] [facility] [place] [address] Scheduled Orders Name Type Priority Associated Diagnoses Orde r Schedule CULTURE, GROUP B STREP WITH SUSCEPTIBLITY Lab Routine Third trimester ([facility]) Expected: 05/01/2025, Expires: 05/01/2026 documented as of this encounter Procedures Procedure Name Priority Date/Time Associated Diagnosis Comments POCT URINALYSIS DIPSTICK Routine 05/01/2025 9:26 AM EDT 36 weeks gestation of ([facility]) Third trimester ([facility]) documented in this encounter Results * POCT urinalysis dipstick manually resulted (05/01/2025 9:26 AM EDT) Color, UA Yellow Clarity, UA Clear Glucose, UA Negative Negative - 2000(110) ++++ mg/dL Bilirubin, UA Negative Negative - 4(70) +++ mg/dL Ketones, UA Negative Negative - 160(16) ++++ mg/dL Spec Grav, UA 1.020 1 - 1.03 Blood, UA Negative Negative - 50 Willard/mcL pH, UA 6.0 5 - 9 Protein, UA Negative Negative - 2000(20) ++++ mg/dL Urobilinogen, UA 1.0 0.2 - 12 mg/dL Leukocytes, UA Negative Negative - 500+++ Charlie/mcL Nitrite, UA Negative Negative - Positive Urine 05/01/2025 9:26 AM EDT Jim Howell DO POINT OF CARE TEST ENTER/EDIT OR DERABLES Final Result documented in this encounter Visit Diagnoses Diagnosis 36 weeks gestation of ([facility]) Third trimester ([facility]) state, incidental H/O section documented in this encounter Care Teams Promotions Assistant Sales Marketing Relationship Specialty Start Date End Date Shilpi Alegria MD [address] [place] [address] PCP - General Family Medicine 10/26/24 documented as of this encounter
--- OUTSIDE RECORDS SUMMARY | 2025-05-01 12:18 | XMS_ITS | Encounter Summary ---
Author Organization [facility] Address [address] [place] [address] Care Team Providers Care Card Reader Name Role Phone Shilpi Alegria MD Primary Care Provider [phone] Encounter Details Date Type Department Care Team (Late Contact Info) Description 11/17/2024 Abstract [facility] [address] [place] [address] [place] [address] Jim Howell DO [address] [facility] [address] [place], [place] [address] Social History Tobacco Use Types Packs/Day Years [...] Department Care Team (Late Contact Info) Description 05/08/2025 11:20 AM EDT Routine ANA R[facility] [address] [place] [address] [place] [address] Sera Osborne PA [address] [facility] [address] [place], [facility]11 05/17/2025 8:00 AM EDT Ancillary Procedure ANA R[facility]LED[facility] [address] [place] [address] [place] [address] documented as of this encounter Visit Diagnoses Not on filedocumented in this encounter Care Teams Card Reader Relationship Specialty Start Date End Date Shilpi Alegria MD [address] [place] [phone] PCP - General Family Medicine 10/26/24 documented as of this encounter
--- OUTSIDE RECORDS SUMMARY | 2025-05-01 12:18 | XMS_ITS | Clinical Summary ---
Author Organization [facility] Address [address] [place] [address] Care Team Providers Care Sustainability Specialist Name Role Phone Shilpi Alegria MD Primary Care Provider [phone] Allergies Active Allergy Reactions Criticality Noted Date Comments Cefdinir 10/26/2024 Other 10/26/2024 Suprex Medications Alcohol Swabs (Alcohol Prep Pad) 70 % padsIndications: Gestational diabetes mellitus (GDM), antepartum, gestational diabetes method of control unspecified ([facility]),Elevat ed glucose tolerance test Apply 1 Pad topically Daily Use four times daily to check FSBS. 150 each 3 5 Active Blood Glucose Monitoring Suppl ([employer] Glucometer) w/Device kitIndications:G estational diabetes mellitus (GDM), antepartum, gestational diabetes method of control unspecified ([facility]),Elevat ed glucose tolerance test 1 kit Daily Use four times daily to check FSBS. In the morning prior to breakfast & 1 hour after each meal for a total of 4times daily. 1 kit 5 12/27/19 26 Active Encounters Date Type Department Care Team Description 05/01/2025 9:10 [place] [address] Jim Howell DO 36 weeks gestation of ([facility]); Third trimester ([facility]); H/O section 05/01/2025 Bamboo flowsheet [facility] [address] [place] [address] Jim Howell DO 04/30/2025 Travel 04/19/2025 8:30 AM EDT Routine [facility] [place] [place] [address] Sera Mckeon PA 34 weeks gestation of ([facility]); Third trimester ([facility]) 04/19/2025 8:00 AM EDT Ancillary Procedure [facility] [place] [address] Third trimester ([facility]); 30 weeks gestation of ([facility]); Elevated glucose tolerance test 04/18/2025 Travel 03/21/2025 8:30 AM EDT Routine [facility] [place] [address] Kamila Crooks, RONALD Third trimester ([facility]) (Primary Dx); 30 weeks gestation of ([facility]); Elevated glucose tolerance test 03/21/[address] [facility] [place] [address] Kamila Crooks, RONALD 03/14/2025 Clinisync Result Encounter NOMS External Department Unsolicited Sera Mckeon PA 03/07/2025 3:20 PM EDT Routine [facility] [place] [address] Jim Howell DO size inconsistent with dates ([facility]) (Primary Dx); 28 weeks gestation of ([facility]); Third trimester ([facility]) 03/07/2025 Clinisync Result Encounter NOMS External Department Unsolicited Jim Howell DO 03/07/2025 Bamboo flowsheet [place] [address] Jim Howell, 03/06/2025 Travel 02/23/2025 Abstract [facility] [place] [address] Jim Howell DO 02/21/2025 2:40 [place] [address] Jim Howell DO Second trimester ([facility]); 26 weeks gestation of ([facility]); Diabetes mellitus screening 02/21/2025 Bamboo flowsheet ANA RUTLEDGE [address] [place], [place] [address] [place] [address] Jim Howell DO 02/21/2025 Travel from Last 3 Months Social History Tobacco [...] Description 05/08/2025 11:20 [place] [phone] Sera Mckeon PA [address] [place] [address] 05/17/2025 8:00 AM EDT Ancillary Procedure ANA R[facility]LEDGE [address] [place], [place] [address] [place] [address] Procedures Procedure Name Priority Date/Time Associated Diagnosis Comments POCT URINALYSIS DIPSTICK Routine 05/01/2025 9:26 AM EDT 36 weeks gestation of ([facility]) Third trimester ([facility]) POCT URINALYSIS DIPSTICK Routine 04/19/2025 8:50 AM EDT 34 weeks gestation of ([facility]) Third trimester ([facility]) US OB FOLLOW UP TRANSABDOMINAL APPROACH Routine 04/19/2025 8:35 AM EDT Third trimester ([facility]) 30 weeks gestation of ([facility]) Elevated glucose tolerance test POCT URINALYSIS DIPSTICK Routine 03/21/2025 8:43 AM EDT Third trimester ([facility]) US OB GROWTH 03/14/2025 3:41 PM EDT POCT URINALYSIS DIPSTICK Routine 03/07/2025 3:23 PM EDT 28 weeks gestation of ([facility]) Third trimester ([facility]) ALL CBC WITH AUTO DIFF Routine 2:56 PM EDT POCT URINALYSIS DIPSTICK Routine 02/21/2025 3:16 PM EDT Second trimester ([facility]) from Last 3 Months Results * POCT urinalysis dipstick manually resulted (05/01/2025 9:26 AM EDT) Only the most recent of5 resultswithin the time period is included. Color, UA Yellow Clarity, UA Clear Glucose, UA Negative Negative - 1999(110) ++++ mg/dL Bilirubin, UA Negative Negative - [...] Positive Urine 05/01/2025 9:26 AM EDT Jim Dante DO POINT OF CARE TEST ENTER/EDIT OR DERABLES Final Result * US OB follow up transabdominal approach [...] BY: Guanaco Coughlin MD us Kamila Crooks NP IMG OB US PROCEDURES Final Re sult * US OB GROWTH (03/14/2025 3:41 PM EDT) Anatomical Region Laterality Modality Other 03/14/2025 3:41 PM EDT Narrative 03/14/2025 3:44 PM EDT [address] [address] Ultrasound Report Signed Patient: ROSANNE CHOUDHARY MR#: [id number] : 2000 Acct:[id number] Age/Sex: 24 / F ADM Date: 03/14/25 Loc: US Attending Dr: Sera Mckeon Ordering Physician: Sera Mckeon Date of Service: 03/14/25 Procedure(s): US OB growth Accession Number(s): [id number] cc: Sera Mckeon; Shilpi Alegria M.D. [address] [address] Patient Name: ROSANNE CHOUDHARY MRN: [id number] date: 2000 Sex: F Assigned Patient Location: US Current Patient Location: US Accession/Order Number: [id number] Exam Date: 03/14/2025 15:38 Report Date: 03/14/2025 15:41 At the request of: SERA MCKEON Procedure: US OB growth Growth ultrasound. Reason for exam: Size and consistent with dates. COMPARISON: None. TECHNIQUE: Transabdominal imaging of the gravid uterus was obtained. FINDINGS: Single live intrauterine measuring 30 weeks 1 day by anatomic measurements. heart rate 149 bpm. PARIS is normal at 14.85 cm. Estimated weight is 1374 g which is the 43rd percentile. position is cephalic at time of scanning. US/US OB growth IMPRESSION: Single live intrauterine 30 weeks 1 day by anatomic measurements. Impression dictated by: Guanaco Davenport Jr., D.O. 03/14/2025 3:41 PM Dictation Location: [place] [address] Electronically authenticated by: [id number] Y Date: 03/14/2025 15:41 Dictated By: Guanaco Davenport M.D. Signed By: 03/14/25 1544 DD/ 1541 TD/TT: Weapons And Tactics Instructor: Procedure Note Radiology, Radiologist, MD - 03/14/2025 [place] [address] Ultrasound Report Signed Patient: ROSANNE CHOUDHARY EMR#: [id number] : 2000Acct:[id number] Age/Sex: 24 / FADM Date: 03/14/25 Loc: US Attending Dr: Sera Mckeon Ordering Physician: Sera Mckeon Date of Service: 03/14/25 Procedure(s): US OB growth Accession Number(s): [id number] cc: Sera Mckeon; Shilpi Alegria M.D. The [address] [address] Patient Name: ROSANNE CHOUDHARY MRN: [id number] date: 2000 Sex: F Assigned Patient Location: US Current Patient Location: US Accession/Order Number: [id number] Exam Date: 03/14/2025 15:38 Report Date: 03/14/2025 15:41 At the request of: SERA MCKEON Procedure: US OB growth Growth ultrasound. Reason for exam: Size and consistent with dates. COMPARISON: None. TECHNIQUE: Transabdominal imaging of the gravid uterus was obtained. FINDINGS: Single live intrauterine measuring 30 weeks 1 day by anatomic measurements. heart rate 149 bpm. PARIS is normal at 14.85cm. Estimated weight is 1374 g which is the 43rd percentile. Fetalposition is cephalic at time of scanning. US/US OB growth IMPRESSION: Single live intrauterine 30 weeks 1 day by anatomic measurements. Impression dictated by: Guanaco Davenport Jr., D.O. 03/14/2025 3:41 PM Dictation Location: [place] [address] Electronically authenticated by: [id number] Y Date: 5:41 Dictated By: Guanaco Davenport M.D. Signed By:03/14/25 1544 DD/ 1541 TD/TT: Weapons And Tactics Instructor: Sera RIVAS [facility] Final Result * (ABNORMAL) ALL CBC WITH AUTO DIFF (03/07/2025 2:56 PM EDT) TB[facility] WBC 8.9 4.0 - 11.0 10 3/uL TBH TBH RBC 4.06(L) 4.20 - 5.40 10 6/uL TBH TBH HGB 11.1(L) 12.0 - 16.0 g/dL TBH TBH HCT 33.6(L) 36.0 - 48.0 % TBH TBH MCV 82.8 81.0 - 99.0 fL TBH TBH MCH 27.3 26.7 - 34.0 pg TBH TBH MCHC 33.0 29.9 - 35.2 g/dL TBH TBH RDW 12.4 11.0 - 15.0 % TBH TBH PLT 283 150 - 450 10 3/uL TBH TBH MPV 10.0 9.5 - 13.5 fL TBH NEUTROPHILS PERCENT AUTO 74.9 43.0 - 75.0 % TBH LYMPHOCYTES PERCENT AUTO 17.6(L) 20.5 - 60.0 % TBH MONOCYTES PERCENT AUTO 6.1 1.7 - 12.0 % TBH TBH EO % 1.0 0.9 - 7.0 % TBH BASOPHILS PERCENT AUTO 0.2 0.2 - 2.0 % TBH IMMATURE GRANULOCYTES PCT AUTO 0.2 0.0 - 0.5 % TBH NEUTROPHILS ABSOLUTE AUTO 6.6(H) 1.4 - 6.5 10 3/uL TBH LYMPHOCYTES ABSOLUTE AUTO 1.6 1.2 - 3.8 10 3/uL TB[facility] MONOCYTES ABSOLUTE AUTO 0.5 0.3 - 0.8 10 3/uL TBH TBH EO # 0.1 0.0 - 0.7 10 3/uL TBH BASOPHILS ABSOLUTE AUTO 0.0 0.0 - 0.1 10 3/uL [facility] IMMATURE GRANULOCYTES ABS AUTO 0.02 0.00 - 0.03 10 3/uL [facility] 03/07/2025 2:56 PM EDT 03/07/2025 2:57 PM EDT Narrative [facility] - 03/07/2025 3:39 PM EDT us Jim Dante DO [facility] Final Result [facility] TB from Last 3 Months Care Teams Sustainability Specialist Relationship Specialty Start Date End Date Shilpi Alegria MD [address] [place] [address] PCP - General Family Medicine 10/26/24
--- OUTSIDE RECORDS SUMMARY | 2025-05-01 12:18 | XMS_ITS | Encounter Summary ---
Author Organization [facility] Address [address] [place] [address] Care Team Providers Care Laborer Steel Handling Name Role Phone Shilpi Alegria MD Primary Care Provider [phone] Encounter Details Date Type Department Care Team (Late Contact Info) Description 05/01/2025 Bamboo flowsheet ANA R[facility]LED[facility] [address] [place] [address] [place] [address] Jim Howell DO [address] [facility] [address] [place], [place] [address] Social History Tobacco Use Types Packs/Day Years [...] 05/08/2025 11:20 AM EDT Routine ANA R[facility]LEDGE [address] [place] [address] [place] [address] Sera Osborne PA [address] [facility] [address] [place], [facility]11 05/17/2025 8:00 AM EDT Ancillary Procedure [facility] R[facility]LED[facility] [address] [place] [address] [place] [address] documented as of this encounter Visit Diagnoses Not on filedocumented in this encounter Care Teams Laborer Steel Handling Relationship Specialty Start Date End Date Shilpi Alegria MD [address] [place] [phone] PCP - General Family Medicine 10/26/24 documented as of this encounter
--- OUTSIDE RECORDS SUMMARY | 2025-05-01 12:18 | XMS_ITS ---
Author Organization [facility] Source Produ ction (ClinicalSummary Clone) Address Unknown Care Team Providers Care Warp Placer Name Role Phone Unavailable Primary Care Physician Unavailab le Results * [UNITY] ANEUPLOIDY NIPT Performed by: Hyglos Component Value Range Date Fraction 4.4% 11/23/2024 11 :17 pm UTC Sex Chromosome Aneuploidy NOT DETECTED 11:17 pm UTC Monosomy X LOW RISK <1 in 10,000 2024 11:17 pm UTC Trisomy 13 LOW RISK <1 in 10,000 2024 11:17 pm UTC Trisomy 18 LOW RISK <1 in 10,000 2024 11:17 pm UTC Trisomy 21 LOW RISK <1 in 10,000 2024 11:17 pm UTC Sex MALE 11/23/2024 11:1 7 pm UTC Gestation PAIGE 11/23/19 11:17 pm UTC For detailed report, see PDF See PDF 11/23/2024 11:17 pm UTC 11/23/2024 11:1 7 pm UTC Social History Observation Value Start Date End Date
--- OUTSIDE RECORDS SUMMARY | 2025-05-01 12:18 | XMS_ITS | Clinical Summary ---
Author Organization [facility] Address [address] [place] [address] Phone Care Team Providers Care Bladder Tier Name Role Phone Jaxon Alvarenga MD Primary Care Provider Shalonda vailable Social History Tobacco Use Types Packs/Day Years Used Date Smoking Tobacco: Never Assessed Comments Unknown Sex and Gender Information Value Date Recorded Sex Assigned at Not on file Legal Sex Female 12:29 AM EST Gender Identity Not on file Sexual Orientation Not on file Plan of Treatment Not on file Care Teams Bladder Tier Relationship Specialty Start Date End Date Jaxon Alvarenga MD Retired From Practice Retired From Practice PCP - General 02/02/06
--- OUTSIDE RECORDS SUMMARY | 2025-05-01 12:18 | XMS_ITS | Encounter Summary ---
Author Organization [facility] Address [address] [place] [address] Care Team Providers Care Painter Sign Maintenance Name Role Phone Shilpi Alegria MD Primary Care Provider [phone] Encounter Details Date Type Department Care Team (Latest Contact Info) Description 04/30/2025 Travel Social History Tobacco Use Types Packs/Day [...] AM EDT Routine [facility] [address] [place] [phone] Sera Osborne PA [address] [place], [facility]11 05/17/2025 8:00 AM EDT Ancillary Procedure [facility] St[facility] [address] [facility] [place] [address] documented as of this encounter Visit Diagnoses Not on filedocumented in this encounter Care Teams Painter Sign Maintenance Relationship Specialty Start Date End Date Shilpi Alegria MD [address] [place] [address] PCP - General Family Medicine 10/26/24 documented as of this encounter
--- OUTSIDE RECORDS SUMMARY | 2025-05-01 12:18 | XMS_ITS | Encounter Summary ---
Author Organization [facility] Address [address] [place] [address] Care Team Providers Care Balance Bridge Assembler Name Role Phone Shilpi Alger[place] MD Primary Care Provider [phone] Encounter Details Date Type Department Care Team (Late Contact Info) Description 02/23/2025 Abstract ANA R[facility]LEDGE [address] [place] [address] [place] [address] Jim Howell DO [address] [facility] [address] Dev[address] [place], [place] [address] Social History Tobacco Use Types Packs/Day Years [...] 05/08/2025 11:20 AM EDT Routine ANA RUTLEDGE [address] [place] [address] [place] [address] Sera Osborne PA [address] [facility] [address] [place], [facility]11 05/17/2025 8:00 AM EDT Ancillary Procedure [facility] R[facility] [address] [place] [address] [place] [address] documented as of this encounter Visit Diagnoses Not on filedocumented in this encounter Care Teams Balance Bridge Assembler Relationship Specialty Start Date End Date Shilpi Alegria MD [address] [place] [phone] PCP - General Family Medicine 10/26/24 documented as of this encounter
--- OUTSIDE RECORDS SUMMARY | 2025-05-01 12:18 | XMS_ITS | Encounter Summary ---
Author Organization [facility] Address [address] [place] [address] Care Team Providers Care Power Plant Assistant Name Role Phone Shilpi Alegria MD Primary Care Provider [phone] Encounter Details Date Type Department Care Team (Late Contact Info) Description 11/24/2024 Abstract ANA R[facility]LEDGE [address] [place] [address] [place] [address] Jim Howell DO [address] [facility] [address] Devin [place], [place] [address] Social History Tobacco Use Types Packs/Day Years [...] 05/08/2025 11:20 AM EDT Routine ANA RUTLEDGE [address] [place] [address] [place] [address] Sera Osborne PA [address] [facility] [address] [place], [facility]11 05/17/2025 8:00 AM EDT Ancillary Procedure [facility] R[facility]LED[facility] [address] [place] [address] [place] [address] documented as of this encounter Visit Diagnoses Not on filedocumented in this encounter Care Teams Power Plant Assistant Relationship Specialty Start Date End Date Shilpi Alegria MD [address] [place] [phone] PCP - General Family Medicine 10/26/24 documented as of this encounter
--- OUTSIDE RECORDS SUMMARY | 2025-05-01 12:18 | XMS_ITS | Encounter Summary ---
Author Organization [facility] Address [address] [place] [address] Care Team Providers Care Reproduction Production Manager Name Role Phone Shilpi Alegria MD Primary Care Provider [phone] Encounter Details Date Type Department Care Team (Latest Contact Info) Description 04/18/2025 Travel Social History Tobacco Use Types Packs/Day [...] EDT Routine [facility] [address] [place] [address] Sera Osborne PA [address] [place] [address] [place], [facility]11 05/17/2025 8:00 AM EDT Ancillary Procedure [facility]LED[facility] [address] [facility] [place] [address] documented as of this encounter Visit Diagnoses Not on filedocumented in this encounter Care Teams Reproduction Production Manager Relationship Specialty Start Date End Date Shilpi Alegria MD [address] [place] [phone] PCP - General Family Medicine 10/26/24 documented as of this encounter
--- OUTSIDE RECORDS SUMMARY | 2025-05-01 12:18 | XMS_ITS | Encounter Summary ---
Author Organization [facility] Address [address] [place] [address] Care Team Providers Care Research Contracts Supervisor Name Role Phone Shilpi Alegria MD Primary Care Provider [phone] Encounter Details Date Type Department Care Team (Late Contact Info) Description 11/20/2024 Abstract ANA R[facility]LEDGE [address] [place] [address] [place] [address] Jim Howell DO [address] [facility] [address] [place], [place] [address] Social History Tobacco Use Types Packs/Day Years [...] 05/08/2025 11:20 AM EDT Routine ANA RUTLEDGE [address] [place] [address] [place] [address] Sera Osborne PA [address] [facility] [address] [place], [facility]11 05/17/2025 8:00 AM EDT Ancillary Procedure ANA RUTLEDGE [address] [place] [address] [place] [address] documented as of this encounter Visit Diagnoses Not on filedocumented in this encounter Care Teams Research Contracts Supervisor Relationship Specialty Start Date End Date Shilpi Alegria MD [address] [place] [phone] PCP - General Family Medicine 10/26/24 documented as of this encounter
== END 2025-05-01 12:17 | disposition home or self-care (01) ==
LOC: LAB 12:16
PROVIDERS: PCP Family Medicine; Visit Provider Obstetrics & Gynecology
DX: Z34.93 Encounter for supervision of normal pregnancy, unspecified, third trimester (principal); Z3A.36 36 weeks gestation of pregnancy
CPT/HCPCS: 87081

== ENCOUNTER 2025-05-09 15:33 | Outpatient (OUT) | payer MEDICAID, SELFPAY ==
--- OUTSIDE RECORDS SUMMARY | 2025-05-01 09:10 | XMS_ITS | Encounter Summary ---
Author Organization [facility] Address [address] [place] [address] Care Team Providers Care Crepe Box Tender Name Role Phone Shilpi Alegria MD Primary Care Provider Encounter Details Date Type Department Care Team (Late st Contact Info) Description 05/01/2025 9:10 AM EDT Routine [facility] [address] [facility] [place] [phone] Jim Howell DO [address] [facility] [address] Devin [place], [facility]11 36 weeks gestation of ([facility]); Third trimester ([facility]); H/O section Social History Tobacco Use [...] to check FSBS. Blood Glucose Monitoring Suppl ([employer] Glucometer) w/Device kit 1 kit, Does not [...] nursing note reviewed. Exam conducted with a spring former hand present. Vitals: There is no height or weight on file to calculate BMI. BP: 130/82 Patient's last menstrual period was 08/17/2024. ASSESSMENT & PLAN ICD-10-CM 1. 36 weeks gestation of ([facility]) Z3A.36 POCT urinalysis dipstick manually resulted 2. Third trimester ([facility]) Z34.93 POCT urinalysis dipstick manually resulted [...] AM EDT Routine [facility] [address] [facility] [place] [phone] Jim Howell DO [address] [place] [address] 05/17/2025 8:00 AM EDT Ancillary Procedure [facility] [address] [place] [address] documented as of this encounter Procedures Procedure Name Priority Date/Time Associated Diagnosis Comments CULTURE, GROUP B STREP WITH SUSCEPTIBLITY Routine 05/01/2025 10:00 AM EDT Third trimester ([facility]) POCT URINALYSIS DIPSTICK Routine 05/01/2025 9:26 AM EDT 36 weeks gestation of ([facility]) Third trimester ([facility]) documented in this encounter Results * [...] Visit Diagnoses Diagnosis 36 weeks gestation of ([facility]) Third trimester ([facility]) state, incidental H/O section documented in this encounter Care Teams Crepe Box Tender Relationship Specialty Start Date End Date Shilpi Alegria MD [address] [place] [address] PCP - General Family Medicine 10/26/24 documented as of this encounter
--- OUTSIDE RECORDS SUMMARY | 2025-05-08 11:20 | XMS_ITS | Encounter Summary ---
Author Organization [facility] Address [address] [place] [address] Care Team Providers Care Mix Maker Name Role Phone Shilpi Alegria MD Primary Care Provider [phone] Reason for Visit * Reason Comments Routine Visit Encounter Details Date Type Department Care Team (Late st Contact Info) Description 05/08/2025 11:20 AM EDT Routine ANA [place] [facility] [address] [facility] [place] [address] Sera Osborne PA [address] [facility] [place] [address] Third trimester ([facility]); 37 weeks gestation of ([facility]); induced hypertension, antepartum ([facility]) Social History Tobacco Use Types Packs/Day Years [...] to check FSBS. Blood Glucose Monitoring Suppl (D-[employer] Glucometer) w/Device kit 1 kit, Does not [...] nursing note reviewed. Exam conducted with a paper inspector present. Vitals: Estimated body mass index is 41.88 kg/m?? as calculated from the following: Height as of this encounter: 5' 2 . Weight as of this encounter: 229 lb. BP: 130/90 Patient's last menstrual period was 08/17/2024. ASSESSMENT & PLAN ICD-10-CM 1. Third trimester ([facility]) Z34.93 POCT urinalysis dipstick manually resulted 2. 37 weeks gestation of ([facility]) Z3A.37 Return OB: Patient presents today [...] headaches. Suggested for patient to go to [facility] for PIH evaluation. Pt states she does [...] Routine [facility] St[facility] R[facility]LEDGE [address] [place] [address] Jim Howell DO [address] [place], [place] [id number] 05/17/2025 8:00 AM EDT Ancillary Procedure [facility] R[facility]LEDGE [address] [place] [address] Scheduled Orders Name Type Priority Associated [...] antepartum documented in this encounter Care Teams Mix Maker Relationship Specialty Start Date End Date Shilpi Alegria MD [address] [place] [address] PCP - General Family Medicine 10/26/24 documented as of this encounter
--- OUTSIDE RECORDS SUMMARY | 2025-05-09 15:36 | XMS_ITS | Encounter Summary ---
Author Organization [facility] Address [address] [place] [address] Care Team Providers Care Ore Roaster Name Role Phone Shilpi Alegria MD Primary Care Provider [phone] Encounter Details Date Type Department Care Team (Late Contact Info) Description 11/24/2024 Abstract ANA RUTLEDGE [facility] [place] [address] Jim Howell DO [address] [place], [place] [address] Social History Tobacco Use Types Packs/Day Years [...] Department Care Team (Late Contact Info) Description 05/14/2025 8:30 AM EDT Routine ANA RUTLEDGE [facility] [place] [address] Jim Howell DO [address] [place], [facility] 05/17/2025 8:00 AM EDT Ancillary Procedure ANA RUTLEDGE [facility] [place] [address] documented as of this encounter Visit Diagnoses Not on filedocumented in this encounter Care Teams Ore Roaster Relationship Specialty Start Date End Date Shilpi Alegria MD [address] [place] [address] PCP - General Family Medicine 10/26/24 documented as of this encounter
--- OUTSIDE RECORDS SUMMARY | 2025-05-09 15:36 | XMS_ITS | Encounter Summary ---
Author Organization [facility] Address [address] [place] [address] Care Team Providers Care Broadcast Program Director Name Role Phone Shilpi Alegria MD Primary Care Provider [phone] Encounter Details Date Type Department Care Team [...] Info) Description 05/14/2025 8:30 AM EDT Routine NOMMalika RUTLEDGE [address] [place] [phone] Jim Howell DO [address] [place] [address] 05/17/2025 8:00 AM EDT Ancillary Procedure [facility]acia [facility] [address] [facility] [place] [address] documented as of this encounter Visit Diagnoses Not on filedocumented in this encounter Care Teams Broadcast Program Director Relationship Specialty Start Date End Date Shilpi Alegria MD [address] [place] [address] PCP - General Family Medicine 10/26/24 documented as of this encounter
--- OUTSIDE RECORDS SUMMARY | 2025-05-09 15:36 | XMS_ITS | Encounter Summary ---
Author Organization [facility] Address [address] [place] [address] Care Team Providers Care Power Cutting Machine Operator Name Role Phone Shilpi Alegria MD Primary Care Provider [phone] Encounter Details Date Type Department Care Team (Late Contact Info) Description 02/23/2025 Abstract ANA RUTLEDGE [facility] [place] [address] Jim Howell DO [address] [place], [place] [address] Social History Tobacco Use Types Packs/Day Years [...] 05/14/2025 8:30 AM EDT Routine ANA RUTLEDGE [facility] [place] [address] Jim Howell DO [address] [place], [facility] 05/17/2025 8:00 AM EDT Ancillary Procedure ANA RUTLEDGE [facility] [place] [address] documented as of this encounter Visit Diagnoses Not on filedocumented in this encounter Care Teams Power Cutting Machine Operator Relationship Specialty Start Date End Date Shilpi Alegria MD [address] [place] [phone] PCP - General Family Medicine 10/26/24 documented as of this encounter
--- OUTSIDE RECORDS SUMMARY | 2025-05-09 15:36 | XMS_ITS | Encounter Summary ---
Author Organization [facility] Address [address] [place] [address] Care Team Providers Care Cna Hha Name Role Phone Shilpi Alegria MD Primary Care Provider [phone] Encounter Details Date Type Department Care Team (Latest Contact Info) Description 05/07/2025 Travel Social History Tobacco Use Types Packs/Day [...] Routine NOMMalika RUTLEDGE [address] [place] [phone] Jim Howell DO [address] [place] [address] 05/17/2025 8:00 AM EDT Ancillary Procedure [facility] [address] [facility] [address] documented as of this encounter Visit Diagnoses Not on filedocumented in this encounter Care Teams Cna Hha Relationship Specialty Start Date End Date Shilpi Alegria MD [address] [place] [address] PCP - General Family Medicine 10/26/24 documented as of this encounter
--- OUTSIDE RECORDS SUMMARY | 2025-05-09 15:36 | XMS_ITS | Clinical Summary ---
Author Organization [facility] Address [address] [place] [address] Care Team Providers Care Flat Drier Name Role Phone Shilpi Alegria MD Primary Care Provider [phone] Allergies Active Allergy Reactions Criticality Noted Date Comments Cefdinir 10/26/2024 Other 10/26/2024 Suprex Medications Alcohol Swabs (Alcohol Prep Pad) 70 % padsIndications: Gestational diabetes mellitus (GDM), antepartum, gestational diabetes method of control unspecified ([facility]),Elevat ed glucose tolerance test Apply 1 Pad topically Daily Use four times daily to check FSBS. 150 each 3 5 Active Blood Glucose Monitoring Suppl (D-Care Glucometer) w/Device kitIndications:G estational diabetes mellitus (GDM), antepartum, gestational diabetes method of control unspecified ([facility]),Elevat ed glucose tolerance test 1 kit Daily Use four times daily to check FSBS. In the morning prior to breakfast & 1 hour after each meal for a total of 4times daily. 1 kit 5 12/27/19 26 Active Encounters Date Type Department Care Team Description 05/08/2025 11:20 AM [place] [address] Mauricio Mckeon PA Third trimester ([facility]); 37 weeks gestation of ([facility]); induced hypertension, antepartum ([facility]) 05/08/2025 [place] [address] Mauricio Mckeon PA 05/07/2025 Travel 05/01/2025 9:10 AM EDT Routine [facility] [place] [address] Jim Howell DO 36 weeks gestation of ([facility]); Third trimester ([facility]); H/O section 05/01/2025 Bamboo flowsheet NOMS Stacia Nina [facility] [place] [address] Jim Howell DO 04/30/2025 Travel 04/19/2025 8:30 AM EDT Routine NOMS Stacia Nina [facility] [place] [address] Mauricio Mckeon PA 34 weeks gestation of ([facility]); Third trimester ([facility]) 04/19/2025 8:00 AM EDT Ancillary Procedure NOMMalika Nina [facility] [place] [address] Third trimester ([facility]); 30 weeks gestation of ([facility]); Elevated glucose tolerance test 04/18/2025 Travel 03/21/2025 8:30 AM EDT Routine NOMS Stacia Nina [facility] [place] [address] Kamila Crooks NP Third trimester ([facility]) (Primary Dx); 30 weeks gestation of ([facility]); Elevated glucose tolerance test 03/21/2025 Bamboo flowsheet NOMS Stacia Nina [facility] [place] [address] Kamila Crooks NP 03/14/2025 Clinisync Result Encounter NOMS External Department Unsolicited Mauricio Mckeon PA 03/07/2025 3:20 PM EDT Routine [facility]OMS Stacia Nina [facility] [place] [address] Jim Howell DO size inconsistent with dates ([facility]) (Primary Dx); 28 weeks gestation of ([facility]); Third trimester ([facility]) 03/07/2025 Clinisync Result Encounter NOMS External Department Unsolicited Jim Howell, 03/07/2025 Bamboo flowsheet NOMS Stacia RUTLEDGE [address] [place] [address] [place] [address] Jim Howell, DO 03/06/2025 Travel 02/23/2025 Abstract [facility] Stacia RUTLEDGE [address] [place] [address] [place] [address] Jim Howell, DO 02/21/2025 2:40 PM EDT Routine NOMS Stacia RUTLEDGE [address] [place] [address] [place] [address] Jim Howell, DO Second trimester ([facility]); 26 weeks gestation of ([facility]); Diabetes mellitus screening 02/21/2025 Bamboo flowsheet NOMS Stacia RUTLEDGE [address] [place] [address] [place] [address] Jim Howell, DO 02/21/2025 Travel from Last 3 Months [...] Mass Index 41.88 05/08/2025 11:55 AM EDT Plan of Treatment Upcoming Encounters Date Type Department Care Team (Late st Contact Info) Description 05/14/2025 8:30 AM EDT Routine NOMS Stacia OBGYN [address] [facility] [place] [address] Jim Howell DO [address] [facility] [place] [address] 05/17/2025 8:00 AM EDT Ancillary Procedure [facility] Stacia OBGYN [address] [facility] [place] [address] Procedures Procedure Name Priority Date/Time Associated Diagnosis Comments POCT URINALYSIS DIPSTICK Routine 05/08/2025 12:02 PM EDT Third trimester ([facility]) CULTURE, GROUP B STREP WITH SUSCEPTIBLITY Routine 05/01/2025 10:00 AM EDT Third trimester ([facility]) POCT URINALYSIS DIPSTICK Routine 05/01/2025 9:26 AM EDT 36 weeks gestation of ([facility]) Third trimester ([facility]) POCT URINALYSIS DIPSTICK Routine 04/19/2025 8:50 AM EDT 34 weeks gestation of ([facility]) Third trimester ([facility]) US OB FOLLOW UP TRANSABDOMINAL APPROACH Routine 04/19/2025 8:35 AM EDT Third trimester ([facility]) 30 weeks gestation of ([facility]) Elevated glucose tolerance test POCT URINALYSIS DIPSTICK Routine 03/21/2025 8:43 AM EDT Third trimester ([facility]) US OB GROWTH 03/14/2025 3:41 PM EDT POCT URINALYSIS DIPSTICK Routine 03/07/2025 3:23 PM EDT 28 weeks gestation of ([facility]) Third trimester ([facility]) ALL CBC WITH AUTO DIFF Routine 06/11/202 5 2:56 PM EDT POCT URINALYSIS DIPSTICK Routine 02/21/2025 3:16 PM EDT Second trimester ([facility]) from Last 3 Months Results * POCT urinalysis dipstick manually resulted (05/08/2025 12:02 PM EDT) Only the most recent of6 resultswithin the time period is included. Color, [...] Positive Urine 05/08/2025 12:0 2 PM EDT Mauricio RIVAS POINT OF CARE TEST ENTER/EDIT OR DERABLES Final Result * CULTURE, GROUP B STREP WITH SUSCEPTIBLITY (05/01/2025 10:00 AM EDT) Swab 05/01/2025 10:0 0 AM EDT us Jim Howell DO LAB BLOOD ORDERABLES Final Resul t EXTERNAL LAB * US OB follow up transabdominal approach [...] BY: ELECTRONICALLY SIGNED BY: Guanaco Coughlin MD Kamila Crooks REGIONAL RECRUITER IMG OB US PROCEDURES Final Re sult * US OB GROWTH (03/14/2025 3:41 PM EDT) Anatomical Region Laterality Modality Other 03/14/2025 3:41 PM EDT Narrative 03/14/2025 3:44 PM EDT [address] [address] Ultrasound Report Signed Patient: ROSANNE CHOUDHARY MR#: [id number] : 2000 Acct:[id number] Age/Sex: 24 / F ADM Date: 03/14/25 Loc: US Attending Dr: Mauricio Mckeon Ordering Physician: Mauricio Mckeon Date of Service: 03/14/25 Procedure(s): US OB growth Accession Number(s): [id number] cc: Mauricio Mckeon; Shilpi Alegria M.D. [address] [address] Patient Name: ROSANNE CHOUDHARY MRN: [id number] date: 2000 Sex: F Assigned Patient Location: US Current Patient Location: US Accession/Order Number: [id number] Exam Date: 03/14/2025 15:38 Report Date: 03/14/2025 15:41 At the request of: MAURICIO MCKEON Procedure: US OB growth Growth ultrasound. [...] Jr., D.O. 03/14/2025 3:41 PM Dictation Location: [place] [address] Electronically authenticated by: [id number] Y Date: 03/14/2025 15:41 Dictated By: Guanaco Dvaenport M.D. Signed By: 03/14/25 1544 DD/ 154 TD/TT: Manager Camp: Procedure Note Radiology, Radiologist, MD - 03/14/2025 [facility] [place] [id number] Ultrasound Report Signed Patient: ROSANNE CHOUDHARY EMR#: [id number] : 2000Acct:[id number] Age/Sex: 24 / FADM Date: 03/14/25 Loc: US Attending Dr: Mauricio Mckeon Ordering Physician: Mauricio Mckeon Date of Service: 03/14/25 Procedure(s): US OB growth Accession Number(s): [id number] cc: Mauricio Mckeon; Shilpi Alegria M.D. The [place] [id number] Patient Name: ROSANNE CHOUDHARY MRN: [id number] date: 2000 Sex: F Assigned Patient Location: US Current Patient Location: US Accession/Order Number: [id number] Exam Date: 03/14/2025 15:38 Report Date: 03/14/2025 15:41 At the request of: MAURICIO MCKEON Procedure: US OB growth Growth ultrasound. [...] Jr., D.O. 03/14/2025 3:41 PM Dictation Location: [place] [address] Electronically authenticated by: [id number] Y Date: 5:41 Dictated By: Guanaco Davenport M.D. Signed By:03/14/25 1544 DD/ 154 TD/TT: Manager Camp: us Mauricio RIVAS [facility] Final Result * (ABNORMAL) ALL CBC WITH AUTO DIFF (03/07/2025 2:56 PM EDT) [facility] TB WBC 8.9 4.0 - 11.0 10 3/uL [...] 2:56 PM EDT 03/07/2025 2:57 PM EDT [facility] - 03/07/2025 3:39 PM EDT us Jim Howell DO [facility] Final Result [facility] from Last 3 Months Care Teams Flat Drier Relationship Specialty Start Date End Date Shilpi Alegria MD [address] [place] [address] PCP - General Family Medicine 10/26/24
--- OUTSIDE RECORDS SUMMARY | 2025-05-09 15:36 | XMS_ITS | Encounter Summary ---
Author Organization [facility] Address [address] [place] [address] Care Team Providers Care Emergency Doctor Name Role Phone Shilpi Alegria MD Primary Care Provider [phone] Encounter Details Date Type Department Care Team (Late Contact Info) Description 05/01/2025 Bamboo flowsheet ANA RUTLEDGE [address] [place] [address] [place] [address] Jim Howell DO [facility] [address] [place], [place] [address] Social History Tobacco Use Types Packs/Day Years [...] 05/14/2025 8:30 AM EDT Routine ANA RUTLEDGE [address] [place], [place] [address] [place] [address] Jim Howell DO [address] [place], [facility] 05/17/2025 8:00 AM EDT Ancillary Procedure ANA RUTLEDGE [facility] [place] [address] documented as of this encounter Visit Diagnoses Not on filedocumented in this encounter Care Teams Emergency Doctor Relationship Specialty Start Date End Date Shilpi Alegria MD [address] [place] [address] PCP - General Family Medicine 10/26/24 documented as of this encounter
--- OUTSIDE RECORDS SUMMARY | 2025-05-09 15:36 | XMS_ITS | Clinical Summary ---
Author Organization [facility] [place] [address] Phone Care Team Providers Care Investigator Narcotics Name Role Phone Jaxon Alvarenga MD Primary Care Provider Shalonda vailable Social History Tobacco Use Types Packs/Day Years Used Date Smoking Tobacco: Never Assessed Comments Unknown Sex and Gender Information Value Date Recorded Sex Assigned at Not on file Legal Sex Female 12:29 AM EST Gender Identity Not on file Sexual Orientation Not on file Plan of Treatment Not on file Care Teams Investigator Narcotics Relationship Specialty Start Date End Date Jaxon Alvarenga MD Retired From Practice Retired From Practice PCP - General 02/02/06
--- OUTSIDE RECORDS SUMMARY | 2025-05-09 15:36 | XMS_ITS | Encounter Summary ---
Author Organization [facility] Address [address] [place] [address] Care Team Providers Care Police Dispatcher Name Role Phone Shilpi Alegria MD Primary Care Provider [phone] Encounter Details Date Type Department Care Team (Late Contact Info) Description 11/17/2024 Abstract ANA RUTLEDGE [facility] [place] [address] Jim Howell DO [address] [place], [place] [address] Social History Tobacco Use Types Packs/Day Years [...] 05/14/2025 8:30 AM EDT Routine ANA RUTLEDGE [facility] [place] [address] Jim Howell DO [address] [place], [facility] 05/17/2025 8:00 AM EDT Ancillary Procedure ANA RUTLEDGE [facility] [place] [address] documented as of this encounter Visit Diagnoses Not on filedocumented in this encounter Care Teams Police Dispatcher Relationship Specialty Start Date End Date Shilpi Alegria MD [address] [place] [address] PCP - General Family Medicine 10/26/24 documented as of this encounter
--- OUTSIDE RECORDS SUMMARY | 2025-05-09 15:36 | XMS_ITS | Encounter Summary ---
Author Organization [facility] Address [address] [place] [address] Care Team Providers Care Spray Ii Painter Name Role Phone Shilpi Alegria MD Primary Care Provider [phone] Encounter Details Date Type Department Care Team (Late Contact Info) Description 05/08/2025 Bamboo flowsheet ANA RUTLEDGE [address] [place] [address] [place] [address] Sera Osborne PA [address] [facility] [address] [place], [place] [address] Social History Tobacco Use Types Packs/Day Years [...] 05/14/2025 8:30 AM EDT Routine ANA RUTLEDGE [address] [place] [address] [place] [address] Jim Howell DO [address] [facility] [address] [place] [place], [facility]11 05/17/2025 8:00 AM EDT Ancillary Procedure NOMMalika RUTLEDGE [address] [place] [address] [place] [address] documented as of this encounter Visit Diagnoses Not on filedocumented in this encounter Care Teams Spray Ii Painter Relationship Specialty Start Date End Date Shilpi Alegria MD [address] [place] [phone] PCP - General Family Medicine 10/26/24 documented as of this encounter
--- NOTE | 2025-05-09 15:56 | US_ITS ---
The [address] [address] Patient Name: EMILY BELCHER MRN: [id number] date: 2000 Sex: F Assigned Patient Location: US Current Patient Location: Accession/Order Number: [id number] Exam Date: 05/10/2025 09:03 Report Date: 05/10/2025 09:05 At the request of: MAURICIO MCKEON Procedure: US OB BPP w non-stress Biophysical profile. Reason for exam: -induced hypertension COMPARISON: None TECHNIQUE: Transabdominal imaging of the gravid uterus was obtained. FINDINGS: The conservation of resources commissioner reports a BPP of 8 out of 8. [place] is normal at 15.5 cm. heart rate 136 bpm. Incidental note is made of right-sided pelviectasis. US/US OB BPP w non-stress IMPRESSION: BPP 8 out of 8. Right pelviectasis. Impression dictated by: Guanaco Davenport Jr., D.O. 05/10/2025 9:05 AM Dictation Location: [place] [address] Electronically authenticated by: [id number] Y Date: 05/10/2025 09:05
[2025-05-09 15:57] LABS: Hematocrit 31.3 % (36.0-48.0); Hemoglobin 10.1 g/dL (12.0-16.0); Immature Granulocytes Abs Auto 0.01 10^3/uL (0.00-0.03); Immature Granulocytes Pct Auto 0.1 % (0.0-0.5); Lymphocytes Absolute Auto 1.6 10^3/uL (1.2-3.8); Mean Corpuscular HGB Conc 32.3 g/dL (29.9-35.2); Mean Corpuscular Hemoglobin 24.5 pg (26.7-34.0); Mean Corpuscular Volume 75.8 fL (81.0-99.0); Platelet Count 264 10^3/uL (150-450); Red Blood Count 4.13 10^6/uL (4.20-5.40); White Blood Count 8.1 10^3/uL (4.0-11.0)
[2025-05-09 16:12] LABS: Partial Thromboplastin Time 25.7 sec (22.3-36.2); Prothrombin Time 9.7 sec (9.0-11.6)
[2025-05-09 16:14] LABS: INR <0.93
[2025-05-09 16:18] LABS: Aspartate Amino Transferase 18 U/L (15-37); Blood Urea Nitrogen 10.0 mg/dL (7.0-18.0); Estimated GFR (African America >60 (>=60 mL/min/1.73m^2); Estimated GFR (Non-African Ame >60 (>=60 mL/min/1.73m^2); Uric Acid 4.5 mg/dL (2.6-6.0)
--- OUTSIDE RECORDS SUMMARY | 2025-05-09 16:25 | XMS_ITS | CCD ---
Author Organization [facility] Care Team Providers Care Cash Sales Audit Clerk Name Role Phone DANTE, DR CAMPOS Admitting Unavailable DANTE, DR CAMPOS Consulting Unavailable DANTE, DR CAMPOS Attending Unavailable BLANTON, DR SHILPI Rios Primary Care Unavailable ZIEBER, DR TRENT Lyn Consulting Unavailable KARASIK, DR RAINEY Attending Unavailable KARASIK, DR RAINEY Admitting Unavailable KARASIK, DR RAINEY Consulting Unavailable BLANTON, DR SHILPI Rios Primary Care Unavailable DANTE, DR CAMPOS Attending Unavailable BLANOTN, DR SHILPI Rios Primary Care Unavailable DANTE, DR CAMPOS Consulting Unavailable DANTE, DR CAMPOS Admitting Unavailable DANTE, DR CAMPOS Attending Unavailable BLANTON, DR SHILPI Rios Primary Care Unavailable DANTE, DR CAMPOS Consulting Unavailable DANTE, DR CAMPOS Admitting Unavailable BLANTON, DR SHILPI Rios Primary Care Unavailable BLANTON, DR SHILPI Rios Attending Unavailable BLANTON, DR SHILPI Rios Admitting Unavailable BLAND, DR DARCY Mondragon Consulting Unavailable FRANNY, DR [...] BUTT Consulting Unavailable ZENA QUEVEDO Consulting Unavailable DATNE, DR CAMPOS Attending Unavailable DANTE, DR CAMPOS Admitting Unavailable DANTE, DR CAMPOS Consulting Unavailable BLANTON, DR SHILPI Rios Primary Care Unavailable BLANTON, DR SHILPI Rios Primary Care Unavailable DANTE, DR CAMPOS Attending Unavailable DANTE, DR CAMPOS Admitting Unavailable DANTE, DR CAMPOS Consulting Unavailable DANTE, DR CAMPOS Attending Unavailable DANTE, DR CAMPOS Admitting Unavailable DANTE, DR CAMPOS Consulting Unavailable BLANTON, DR SHILPI Rios Primary Care Unavailable BLANTON, DR SHILPI Rios Primary Care Unavailable DANTE, DR CAMPOS Attending Unavailable DANTE, DR CAMPOS Admitting Unavailable DANTE, DR CAMPOS Consulting Unavailable DANTE, DR CAMPOS Attending Unavailable DANTE, DR CAMPOS Admitting Unavailable DANTE, DR CAMPOS Consulting Unavailable BLANTON, DR SHILPI Rios Primary Care Unavailable Franny GARRETT, Shilpi Primary Care Provider Franny GARRETT, Shilpi Primary Care Provider Franny GARRETT, Shilpi Primary Care Provider [phone] DANTE, ANDRES Attending Unavailable DANTE, ANDRES Attending Unavailable DANTE, ANDRES Referring Unavailable DANTE, ANDRES Attending Unavailable DANTE, ANDRES Attending Unavailable DANTE, ANDRES Attending Unavailable VALERIYKAMILA SYLVESTER Attending Unavailable VALERIY, KAMILA Referring Unavailable MIKESERA RADFORD Attending Unavailable DANTE, ANDRES Attending Unavailable Allergies Allergy Classification Reported Allergen(s) Allergy Type Date of Onset Reaction(s) Facility (1 source) cefdinir Drug Allergy [facility] Repository (2 sources) Cephalosporins (Antibiotic) Drug allergy (disorder) [facility] Repository (1 source) Dextrothyroxine Drug Allergy [facility] Repository (20 sources) cefdinir Drug Allergy 5 [facility] (20 sources) Other Propensity to adverse reactions 5 [facility] Medications Current Medications Medication Drug Class(es) Dates Sig (Normalized) Sig (Original) Blood Glucose Monitoring Suppl (D-Care Glucometer) w/Device kit (20 sources) Start: 12-26-2024 End: 12-26-2025 Blood Glucose Monitoring Suppl (D-Care Glucometer) w/Device kit Indications: Gestational diabetes mellitus (GDM), antepartum, gestational diabetes method of control unspecified (HHS-HCC) , Elevated glucose tolerance test 1 kit Daily Use four times daily to check FSBS. In the morning prior to breakfast & 1 hour after each meal for a total of 4times daily. 1 kit 12/26/2024 12/26/2025 Active Start: 12-26-2024 End: 12-26-2025 Blood Glucose Monitoring Sup pl (D-Care Glucometer) w/Device kit Indications: Gestational diabetes mellitus (GDM), antepartum, gestational diabetes method of control unspecified , Elevated glucose tolerance test 1 kit Daily Use four times daily to check FSBS. In the morning prior to breakfast & 1 hour after each meal for a total of 4times daily. 1 kit 12/26/2024 12/26/2025 Active isopropyl alcohol 0.7 ml/ml medicated pad (20 sources) Start: 12-26-2024 Alcohol Swabs (Alcohol Prep Pad) 70 % pads Indications: Gestational diabetes mellitus (GDM), antepartum, gestational diabetes method of control unspecified ([facility]) , Elevated glucose tolerance test Apply 1 Pad topically Daily Use four times daily to check FSBS. 150 each 3 12/26/2024 Active Problems Active Problems Problem Classification Problem Date Documented Date Episodic/Chronic Abdominal pain (4 sources) Right upper quadrant pain; Translations: [RIGHT UPPER QUADRANT PAIN] Onset: 12-26-2021 Episodic Diabetes mellitus without complication (2 sources) Abnormal glucose tolerance test; Translations: [Other abnormal glucose] 12-26-2024 Episodic Diabetes or abnormal glucose tolerance complicating ; childbirth; or the puerperium (2 sources) Gestational diabetes mellitus; Translations: [Gestational diabetes mellitus in , unspecified control] 12-26-2024 Episodic Hypertension complicating ; childbirth and the puerperium (2 sources) -induced hypertension; Translations: [Gestational [-induced] hypertension without significant proteinuria, unspecified trimester] 05-08-2025 Episodic Immunizations and screening for infectious disease (4 sources) Encounter for screening for human papillomavirus (HPV); Translations: [Encounter for screening for infections with a predominantly sexual mode of transmission] Onset: 03-04-2021 12-26-2024 Episodic Menstrual disorders (1 source) Missed period; Translations: [Irregular menstruation, unspecified] 10-26-2024 Chronic Other complications of (4 sources) size does not accord with dates; Translations: [Uterine size-date discrepancy, unspecified trimester] 03-07-2025 Episodic Other female genital disorders (2 sources) Vaginal discharge; Translations: [Other specified noninflammatory disorders of vagina] 12-26-2024 Episodic Other and delivery including normal (20 sources) Encounter for routine follow-up; Translations: [Single live ] Onset: 01-13-2021 Episodic Other screening for suspected conditions (not mental disorders or infectious disease) (20 sources) Encounter for screening for Streptococcus B; Translations: [Encounter for screening for diabetes mellitus] Onset: 02-25-2021 Episodic Residual codes; unclassified (2 sources) Gestation period, 13 weeks; Translations: [13 weeks gestation of ] 11-27-2024 Episodic Residual codes; unclassified (2 sources) Gestation period, 18 weeks; Translations: [18 weeks gestation of ] 12-26-2024 Episodic Residual codes; unclassified (1 source) Gestation period, 22 weeks; Translations: [22 weeks gestation of ] 01-23-2025 Episodic Residual codes; unclassified (2 sources) Gestation period, 26 weeks; Translations: [26 weeks gestation of ] 02-21-2025 Episodic Residual codes; unclassified (2 sources) Gestation period, 28 weeks; Translations: [28 weeks gestation of ] 03-07-2025 Episodic Residual codes; unclassified (2 sources) Gestation period, 30 weeks; Translations: [30 weeks gestation of ] 03-21-2025 Episodic Residual codes; unclassified (2 sources) Gestation period, 34 weeks; Translations: [34 weeks gestation of ] 04-19-2025 Episodic Residual codes; unclassified (2 sources) Gestation period, 36 weeks; Translations: [36 weeks gestation of ] 05-01-2025 Episodic Residual codes; unclassified (2 sources) Gestation period, 37 weeks; Translations: [37 weeks gestation of ] 05-08-2025 Episodic Thyroid disorders (1 source) Hypothyroidism, unspecified; Translations: [HYPOTHYROIDISM UNSPECIFIED] Onset: 08-05-2021 Chronic Unclassified (1 source) CONTACT W/AND (SUSP) EXPOS COVID-19; Translations: [CONTACT W/AND (SUSP) EXPOS COVID-19] Onset: 07-25-2021 Past or Other Problems Problem Classification Problem Date Documented Date Episodic/Chronic Other complications of ; puerperium affecting management [...] SPEC NONINFLAMMATORY D/O VAGINA] Onset: 03-04-2021 Episodic Previous (3 sources) Maternal care for [...] Test Name Value Interpretation Reference Range Facility ALL CBC WITH AUTO DIFFon BASOPHILS ABSOLUTE AUTO 0 [facility] Basophils/100 WBC (Bld) 0.1 % Low 0.2 - 2.0 % [facility] Eosinophils/100 WBC (Bld) 0.9 % 0.9 - 7.0 % [facility] Erythrocyte distribution width (RBC) [Ratio] 13.9 % 11.0 - 15.0 % [facility] Hematocrit (Bld) [Volume fraction] 31.3 % Low 36.0 - 48.0 % [facility] Hemoglobin (Bld) [Mass/Vol] 10.1 g/dL Low 12.0 - 16.0 g/dL [facility] IMMATURE GRANULOCYTES ABS AUTO 0.01 [facility] Immature granulocytes/100 WBC (Bld) 0.1 % 0.0 - 0.5 % [facility] Interpretation and review of laboratory results Abnormal [facility] LYMPHOCYTES ABSOLUTE AUTO 1.6 [facility] Lymphocytes/100 WBC (Bld) 19.5 % Low 20.5 - 60.0 % [facility] MCH (RBC) [Entitic mass] 24.5 pg Low 26.7 - 34.0 pg [facility] MCHC (RBC) [Mass/Vol] 32.3 g/dL 29.9 - 35.2 g/dL [facility] MCV (RBC) [Entitic vol] 75.8 fL Low 81.0 - 99.0 fL [facility] MONOCYTES ABSOLUTE AUTO 0.7 [facility] Monocytes/100 WBC (Bld) 8.3 % 1.7 - 12.0 % [facility] NEUTROPHILS ABSOLUTE AUTO 5.8 [facility] Neutrophils/100 WBC (Bld) 71.1 % 43.0 - 75.0 % [facility] Platelet mean volume (Bld) [Entitic vol] 10.3 fL 9.5 - 13.5 fL [facility] TBH EO # 0.1 [facility] TB PLT 264 [facility] TB RBC 4.13 Low [facility] TB WBC 8.1 [facility] Urinalysis macro (dipstick) panel (U)on 05-08-2025 Bilirubin, UA Negative Negative - 4(70) +++ mg/dL [facility] Blood, UA Negative Negative - 50 Willard/mcL [facility] Clarity, UA Clear [facility] Color, UA Yellow [facility] Glucose, UA Negative Negative - 1999(110) ++++ mg/dL [facility] Interpretation and review of laboratory results Normal [facility] Ketones, UA Negative Negative - 160(16) ++++ mg/dL [facility] Leukocytes, UA Negative Negative - 500+++ Charlie/mcL [facility] Nitrite, UA Negative Negative - Positive [facility] pH, UA 6 5 - 9 [facility] Protein, UA Negative Negative - 1999(20) ++++ mg/dL [facility] Spec Grav, UA 1.02 1 - 1.03 [facility] Urobilinogen, UA 1.0 0.2 - 12 mg/dL [facility] Urinalysis macro (dipstick) panel (U)on 05-01-2025 Bilirubin, UA Negative Negative - 4(70) +++ mg/dL [facility] Blood, UA Negative Negative - 50 Willard/mcL [facility] Clarity, UA Clear [facility] Color, UA Yellow [facility] Glucose, UA Negative Negative - 1999(110) ++++ mg/dL [facility] Interpretation and review of laboratory results Normal [facility] Ketones, UA Negative Negative - 160(16) ++++ mg/dL [facility] Leukocytes, UA Negative Negative - 500+++ Charlie/mcL [facility] Nitrite, UA Negative Negative - Positive [facility] pH, UA 6 5 - 9 [facility] Protein, UA Negative Negative - 1999(20) ++++ mg/dL [facility] Spec Grav, UA 1.02 1 - 1.03 [facility] Urobilinogen, UA 1.0 0.2 - 12 mg/dL [facility] US OB FOLLOW UP TRANSABDOMIN AL APPROACHon 04-19-2025 US OB FOLLOW UP TRANSABDOMINAL APPROACH FINDINGS: A single, live intrauterine is present [...] +/- 411 grams (6 pounds, 1 ounce). IMPRESSION: 1. Single, live intrauterine , current sonographic age of 35 weeks and 4 days, with an estimated date of delivery of May 20, 2025. Prior examination of January 10, 2025 resulted in DEL of May 25, 2025. 2. Estimated weight 2745 grams TRANSCRIBED BY: ELECTRONICALLY SIGNED BY: Guanaco Coughlin MD Normal Not Available Comment on above: Order Comment: US OB SCAN FOR GROWTH Estimated Date of Delivery: 05/29/25 Gestational Age as of 03/21/2025: 34w1d Urinalysis macro (dipstick) panel (U)on 04-19-2025 Bilirubin, UA Negative Negative - 4(70) +++ mg/dL [facility] Blood, UA Negative Negative - 50 Willard/mcL [facility] Clarity, UA Clear [facility] Color, UA Yellow [facility] Glucose, UA Negative Negative - 1999(110) ++++ mg/dL [facility] Interpretation and review of laboratory results Normal [facility] Ketones, UA Negative Negative - 160(16) ++++ mg/dL [facility] Leukocytes, UA Negative Negative - 500+++ Charlie/mcL [facility] Nitrite, UA Negative Negative - Positive [facility] pH, UA 6 5 - 9 [facility] Protein, UA Negative Negative - 1999(20) ++++ mg/dL [facility] Spec Grav, UA 1.01 1 - 1.03 [facility] Urobilinogen, UA 1.0 0.2 - 12 mg/dL [facility] Urinalysis macro (dipstick) panel (U)on 03-21-2025 Bilirubin, UA Negative Negative - 4(70) +++ mg/dL [facility] Blood, UA Negative Negative - 50 Willard/mcL [facility] Clarity, UA Clear [facility] Color, UA Yellow [facility] Glucose, UA Negative Negative - 1999(110) ++++ mg/dL [facility] Interpretation and review of laboratory results Normal [facility] Ketones, UA Negative Negative - 160(16) ++++ mg/dL [facility] Leukocytes, UA Negative Negative - 500+++ Charlie/mcL [facility] Nitrite, UA Negative Negative - Positive [facility] pH, UA 6.5 5 - 9 [facility] Protein, UA Negative Negative - 1999(20) ++++ mg/dL [facility] Spec Grav, UA 1.015 1 - 1.03 [facility] Urobilinogen, UA 0.2 0.2 - 12 mg/dL [facility] OB GROWTHon 03-14-2025 [place] [address] Ultrasound Report Signed Patient: ROSANNE BELCHER MR#: [id number] : 2000 Acct:[id number] Age/Sex: 24 / F ADM Date: 03/14/25 Loc: Attending Dr: Sera Mckeon Ordering Physician: Sera Mckeon Date of Service: 03/14/25 Procedure(s): US OB growth Accession Number(s): [id number] cc: Shilpi Leo M.D. The [address] [id number] Patient Name: ROSANNE BELCHER MRN: [facility]:[id number] date: 2000 Sex: F Assigned Patient Location: US Current Patient Location: US Accession/Order Number: [id number] Exam Date: 03/14/2025 15:38 Report Date: 03/14/2025 [...] measurements. Impression dictated by: Guanaco Davenport Jr., EdmarOYudi 03/14/2025 3:41 PM Dictation Location: [place] [address] Electronically authenticated by: [id number] Y Date: 03/14/2025 15:41 Dictated By: Guanaco Davenport M.D. Signed By: 03/14/25 1544 DD/ 1541 TD/TT: Wax Pattern Coater: [facility] Radiology, Radiologist, MD - 03/14/2025 [place] [address] Ultrasound Report Signed Patient: ROSANNE BELCHER MR#: [id number] : 2000 Acct:[id number] Age/Sex: 24 / F ADM Date: 03/14/25 Loc: US Attending Dr: Sera Mckeon Ordering Physician: Sera Mckeon Date of Service: 03/14/25 Procedure(s): US OB growth Accession Number(s): [id number] cc: Shilpi Leo M.D. The [place] [id number] Patient Name: ROSANNE BELCHER MRN: [facility]:[id number] date: 2000 Sex: F Assigned Patient Location: US Current Patient Location: US Accession/Order Number: [id number] Exam Date: 03/14/2025 15:38 Report Date: 03/14/2025 [...] Jr., D.O. 03/14/2025 3:41 PM Dictation Location: [place] [address] Electronically authenticated by: [id number] Y Date: 03/14/2025 15:41 Dictated By: Guanaco Davenport M.D. Signed By: 03/14/25 1544 DD/ 1541 TD/TT: Wax Pattern Coater: [facility] Radiology Study observation (narrative) [facility] OB GROWTHOrdered By: Joaquin contrerasogjuanita Radiology on 03-14-2025 [facility] Work Phone: ALL CBC WITH AUTO DIFFon BASOPHILS ABSOLUTE AUTO 0 [facility] Basophils/100 WBC (Bld) 0.2 % 0.2 - 2.0 % [facility] Eosinophils/100 WBC (Bld) 1 % 0.9 - 7.0 % [facility] Erythrocyte distribution width (RBC) [Ratio] 12.4 % 11.0 - 15.0 % [facility] Hematocrit (Bld) [Volume fraction] 33.6 % Low 36.0 - 48.0 % [facility] Hemoglobin (Bld) [Mass/Vol] 11.1 g/dL Low 12.0 - 16.0 g/dL [facility] IMMATURE GRANULOCYTES ABS AUTO 0.02 [facility] Immature granulocytes/100 WBC (Bld) 0.2 % 0.0 - 0.5 % [facility] Interpretation and review of laboratory results Abnormal [facility] LYMPHOCYTES ABSOLUTE AUTO 1.6 [facility] Lymphocytes/100 WBC (Bld) 17.6 % Low 20.5 - 60.0 % [facility] MCH (RBC) [Entitic mass] 27.3 pg 26.7 - 34.0 pg [facility] MCHC (RBC) [Mass/Vol] 33 g/dL 29.9 - 35.2 g/dL [facility] MCV (RBC) [Entitic vol] 82.8 fL 81.0 - 99.0 fL [facility] MONOCYTES ABSOLUTE AUTO 0.5 [facility] Monocytes/100 WBC (Bld) 6.1 % 1.7 - 12.0 % [facility] NEUTROPHILS ABSOLUTE AUTO 6.6 High [facility] Neutrophils/100 WBC (Bld) 74.9 % 43.0 - 75.0 % [facility] Platelet mean volume (Bld) [Entitic vol] 10 fL 9.5 - 13.5 fL [facility] TBH EO # 0.1 [facility] TB PLT 283 [facility] RBC 4.06 Low [facility] WBC 8.9 [facility] Urinalysis macro (dipstick) panel (U)on 03-07-2025 Bilirubin, UA Negative Negative - 4(70) +++ mg/dL [facility] Blood, UA Negative Negative - 50 Willard/mcL [facility] Clarity, UA Clear [facility] Color, UA Yellow [facility] Glucose, UA Negative Negative - 1999(110) ++++ mg/dL [facility] Interpretation and review of laboratory results Normal [facility] Ketones, UA Negative Negative - 160(16) ++++ mg/dL [facility] Leukocytes, UA Negative Negative - 500+++ Charlie/mcL [facility] Nitrite, UA Negative Negative - Positive [facility] pH, UA 6.5 5 - 9 [facility] Protein, UA Negative Negative - 1999(20) ++++ mg/dL [facility] Spec Grav, UA 1.015 1 - 1.03 [facility] Urobilinogen, UA 0.2 0.2 - 12 mg/dL [facility] Urinalysis macro (dipstick) panel (U)on 02-21-2025 Bilirubin, UA Negative Negative - 4(70) +++ mg/dL [facility] Blood, UA Negative Negative - 50 Willard/mcL [facility] Clarity, UA Clear [facility] Color, UA Yellow [facility] Glucose, UA Negative Negative - 1999(110) ++++ mg/dL [facility] Interpretation and review of laboratory results Normal [facility] Ketones, UA Negative Negative - 160(16) ++++ mg/dL [facility] Leukocytes, UA Negative Negative - 500+++ Charlie/mcL [facility] Nitrite, UA Negative Negative - Positive [facility] pH, UA 6.5 5 - 9 [facility] Protein, UA Negative Negative - 1999(20) ++++ mg/dL [facility] Spec Grav, UA 1.01 1 - 1.03 [facility] Urobilinogen, UA 0.2 0.2 - 12 mg/dL [facility] Urinalysis macro (dipstick) panel (U)on 01-23-2025 Bilirubin, UA Negative Negative - 4(70) +++ mg/dL [facility] Blood, UA Negative Negative - 50 Willard/mcL [facility] Clarity, UA Clear [facility] Color, UA Yellow [facility] Glucose, UA Negative Negative - 1999(110) ++++ mg/dL [facility] Interpretation and review of laboratory results Normal [facility] Ketones, UA Negative Negative - 160(16) ++++ mg/dL [facility] Leukocytes, UA Negative Negative - 500+++ Charlie/mcL [facility] Nitrite, UA Negative Negative - Positive [facility] pH, UA 6.5 5 - 9 [facility] Protein, UA Negative Negative - 1999(20) ++++ mg/dL [facility] Spec Grav, UA 1.02 1 - 1.03 [facility] Urobilinogen, UA 0.2 0.2 - 12 mg/dL [facility] US OB 14+ WEEKS ANATOMY SCAN on 01-10-2025 US OB 14+ WEEKS ANATOMY SCAN EXAM: US OB 14+ WEEKS ANATOMY SCAN [...] II, MD, PHD at 13-Jan-2025 06:46:09 PM [facility] [employer] Normal Not Available Comment on above: Order Comment: US OB ANATOMY SINGLE W US OB CERVICAL LENGTH Estimated Date of Delivery: 05/29/25 Gestational Age as of 12/26/2024: 18w0d RECURRENT VAGINITIS (HTRX)on 12-27-2024 ATOPOBIUM VAGINAE 0 [facility] ATOPOBIUM VAGINAE Not detected [facility] BVAB 2,3 (BACTERIAL VAGINOSIS ASSOCIATED BACTERIA 2, 3); MOBILUNCUS SPP 0 [facility] BVAB 2,3 (BACTERIAL VAGINOSIS ASSOCIATED BACTERIA 2, 3); MOBILUNCUS SPP Not detected [facility] TRICIA ALBICANS, PARAPSILOSIS, TROPICALIS 0 [facility] TRICIA ALBICANS, PARAPSILOSIS, TROPICALIS Not detected [facility] TRICIA GLABRATA 0 [facility] TRICIA GLABRATA Not detected [facility] TRICIA KRUSEI 0 [facility] TRICIA KRUSEI Not detected [facility] CHLAMYDIA TRACHOMATIS 0 [facility] CHLAMYDIA TRACHOMATIS Not detected [facility] GARDNERELLA VAGINALIS 0 [facility] GARDNERELLA VAGINALIS Not detected [facility] MEGASPHAERA (TYPES 1, 2) 0 [facility] MEGASPHAERA (TYPES 1, 2) Not detected [facility] MYCOPLASMA GENITALIUM 0 [facility] MYCOPLASMA GENITALIUM Not detected [facility] NEISSERIA GONORRHOEAE 0 [facility] NEISSERIA GONORRHOEAE Not detected [facility] TRICHOMONAS VAGINALIS 0 [facility] TRICHOMONAS VAGINALIS Not detected [facility] Urinalysis macro (dipstick) panel (U)Ordered By: Alison King on 12-26-2024 Bilirubin, UA Negative Negative - 4(70) +++ mg/dL [facility] Blood, UA Negative Negative - 50 Willard/mcL [facility] Clarity, UA Clear [facility] Color, UA Yellow [facility] Glucose, UA Negative Negative - 2000(110) ++++ mg/dL [facility] Interpretation and review of laboratory results Normal [facility] Ketones, UA Negative Negative - 160(16) ++++ mg/dL [facility] Leukocytes, UA Negative Negative - 500+++ Charlie/mcL [facility] Nitrite, UA Negative Negative - Positive [facility] pH, UA 6 5 - 9 [facility] Protein, UA Negative Negative - 2000(20) ++++ mg/dL [facility] Spec Grav, UA 1.02 1 - 1.03 [facility] Urobilinogen, UA 0.2 0.2 - 12 mg/dL [facility] GLUCOSE TOLERANCE 3 HOURon 0 12-20-2024 GLUCOSE TOLERANCE 3 HOUR mg/dL [facility] Comment on above: GLU FAST 93 (<95) Co l: 12/20/24 0741 GLU 1HR 141 (<180) Col: 12/20/24 0849 GLU 2HR 131 (<155) Col: 12/20/24 0949 GLU 3HR 99 (<140) Col: 12/20/24 1052 [facility] Urinalysis macro (dipstick) panel (U)on 11-27-2024 Bilirubin, UA Negative Negative - 4(70) +++ mg/dL [facility] Blood, UA Negative Negative - 50 Willard/mcL [facility] Clarity, UA Clear [facility] Color, UA Yellow [facility] Glucose, UA Negative Negative - 1999(110) ++++ mg/dL [facility] Interpretation and review of laboratory results Normal [facility] Ketones, UA Negative Negative - 160(16) ++++ mg/dL [facility] Leukocytes, UA Negative Negative - 500+++ Charlie/mcL [facility] Nitrite, UA Negative Negative - Positive [facility] pH, UA 5.5 5 - 9 [facility] Protein, UA Negative Negative - 1999(20) ++++ mg/dL [facility] Spec Grav, UA 1.005 1 - 1.03 [facility] Urobilinogen, UA 0.2 0.2 - 12 mg/dL [facility] MLR HEMOGLOBIN A1Con 025 Glucose [Mass/Vol] 120 mg/dL [facility] HbA1c (Bld) [Mass fraction] 5.8 % 4.5 - 6.2 % [facility] Comment on above: ADA RECOMMENDED LIMI T 4.0 - 6.0 ADA THERAPEUTIC TARGET < 7.0 ACTION SUGGESTED > 7.0 [facility] HCG ( test) Ql (U)o n 10-26-2024 Interpretation and review of laboratory results Abnormal [facility] Preg Test, Ur Positive Negative [facility] US OB TRANSVAGINALon 025 US OB TRANSVAGINAL [...] report is generated using voice recognition reporting ([employer]). On occasion, [employer] erroneously drops words from the report or [...] UA Negative Negative - 4(70) +++ mg/dL [facility] Blood, UA Negative Negative - 50 Willard/mcL [facility] Clarity, UA Clear [facility] Color, UA Yellow [facility] Glucose, UA Negative Negative - 1999(110) ++++ mg/dL [facility] Interpretation and review of laboratory results Normal [facility] Ketones, UA Negative Negative - 160(16) ++++ mg/dL [facility] Leukocytes, UA Negative Negative - 500+++ Charlie/mcL [facility] Nitrite, UA Negative Negative - Positive [facility] pH, UA 6.5 5 - 9 [facility] Protein, UA Negative Negative - 2000(20) ++++ mg/dL [facility] Spec Grav, UA 1.005 1 - 1.03 [facility] Urobilinogen, UA 0.2 0.2 - 12 mg/dL [facility] US SINGLE QUAD RT UPPERon [...] DARCY AU Date: 2021-12-26 16:10 Normal [facility] CBC AUTO DIFFon 07-29-2021 BASO # 0.0 103/ul Normal 0.0-0.1 [facility] Comment on above: Performed By: #### D RUGRPD #### [facility] [address] [place] [address] Dr. Brian Abdi Basophils/100 WBC (Bld) 0.2 % Normal 0.2-2.0 [facility] Comment on above: Performed By: #### D RUGRPD #### [facility] [address] [place] [address] Dr. Brian Abdi EO # 0.1 103/ul Normal 0.0-0.7 [facility] Comment on above: Performed By: #### D RUGRPD #### [facility] [address] [place] [address] Dr. Brian Abdi Eosinophils/100 WBC (Bld) 0.5 % Critically low 0.9-7.0 [facility] Comment on above: Performed By: #### D RUGRPD #### [facility] [address] [place] [address] Dr. Brian Abdi Erythrocyte distribution width (RBC) [Ratio] 13.9 % Normal 11.0-15.0 [facility] Comment on above: Performed By: #### D RUGRPD #### [facility] [address] [place] [address] Dr. Brian Abdi Hematocrit (Bld) [Volume fraction] 25.7 % Critically low 36.0-48.0 [facility] Comment on above: Performed By: #### D RUGRPD #### [facility] [address] [address] [address] Brian Abdi Hemoglobin (Bld) [Mass/Vol] 8.2 g/dL Critically low 12.0-16.0 [facility] Comment on above: Result Comment: SURESH ENT DELIVERED Performed By: #### D RUGRPD #### [facility] [address] [address] [address] Brian Abdi IG # 0.04 10e3/ul Critically high 0.00-0.03 [facility] Comment on above: Performed By: #### D RUGRPD #### [facility] [address] [place] [address] Dr. Brian Abdi IG % 0.4 % Normal 0.0-0.5 [facility] Comment on above: Performed By: #### D RUGRPD #### [facility] [address] [place] [address] Dr. Brian Abdi LYMPH # 2.4 103/ul Normal 1.2-3.8 [facility] Comment on above: Performed By: #### D RUGRPD #### [facility] [address] [place] [address] Dr. Brian Abdi Lymphocytes/100 WBC (Bld) 23.6 % Normal 20.5-60.0 [facility] Comment on above: Performed By: #### D RUGRPD #### [facility] [address] [place] [address] Dr. Brian Abdi MANUAL DIFF REQ NO Normal [facility] Comment on above: Performed By: #### D RUGRPD #### [facility] [address] [place] [address] Dr. Brian Abdi MCH (RBC) [Entitic mass] 27.6 pg Normal 26.7-34.0 [facility] Comment on above: Performed By: #### D RUGRPD #### [facility] [address] [place] [address] Dr. Brian Abdi MCHC (RBC) [Mass/Vol] 31.9 g/dL Normal 29.9-35.2 [facility] Comment on above: Performed By: #### D RUGRPD #### [facility] [address] [address] [address] Brian Abdi MCV (RBC) [Entitic vol] 86.5 fL Normal 81.0-99.0 [facility] Comment on above: Performed By: #### D RUGRPD #### [facility] [address] [address] [address] Brian Abdi MONO # 0.7 103/ul Normal 0.3-0.8 [facility] Comment on above: Performed By: #### D RUGRPD #### [facility] [address] [address] [address] Brian Abid Monocytes/100 WBC (Bld) 7.3 % Normal 1.7-12.0 [facility] Comment on above: Performed By: #### D RUGRPD #### [facility] [address] [place] [address] Dr. Brian Abdi NEUT # 6.8 103/ul Critically high 1.4-6.5 [facility] Comment on above: Performed By: #### D RUGRPD #### [facility] [address] [place] [address] Dr. Brian Abdi Neutrophils/100 WBC (Bld) 68.0 % Normal 43.0-75.0 [facility] Comment on above: Performed By: #### D RUGRPD #### [facility] [address] [place] [address] Dr. Brian Abdi Platelet mean volume (Bld) [Entitic vol] 9.8 fL Normal 9.5-13.5 [facility] Comment on above: Performed By: #### D RUGRPD #### [facility] [address] [place] [address] Dr. Brian Abdi PLT 204 103/ul Normal 150-450 [facility] Comment on above: Performed By: #### D RUGRPD #### [facility] [address] [place] [address] Dr. Brian Abdi RBC 2.97 106/ul Critically low 4.20-5.40 [facility] Comment on above: Performed By: #### D RUGRPD #### [facility] [address] [address] [address] Brian Abdi WBC 10.0 103/ul Normal 4.0-11.0 [facility] Comment on above: Performed By: #### D RUGRPD #### [facility] [address] [address] [address] Brian Abdi CBC AUTO DIFFon 07-28-2021 BASO # 0.0 103/ul Normal 0.0-0.1 [facility] Comment on above: Performed By: #### H H #### [facility] [address] [address] Sunitha Tram Basophils/100 WBC (Bld) 0.3 % Normal 0.2-2.0 [facility] Comment on above: Performed By: #### H H #### [facility] [address] [place] [address] Sunitha Tram EO # 0.0 103/ul Normal 0.0-0.7 [facility] Comment on above: Performed By: #### H H #### [facility] [address] [place] [address] Sunitha Tram Eosinophils/100 WBC (Bld) 0.6 % Critically low 0.9-7.0 [facility] Comment on above: Performed By: #### H H #### [facility] [address] [place] [address] Sunitha Tram Erythrocyte distribution width (RBC) [Ratio] 14.1 % Normal 11.0-15.0 [facility] Comment on above: Performed By: #### H H #### [facility] [address] [place] [address] Sunitha Tram Hematocrit (Bld) [Volume fraction] 34.5 % Critically low 36.0-48.0 [facility] Comment on above: Performed By: #### H H #### [facility] [address] [place] [address] Sunitha Tram Hemoglobin (Bld) [Mass/Vol] 10.8 g/dL Critically low 12.0-16.0 [facility] Comment on above: Performed By: #### H H #### [facility] [address] [address] Sunitha Tram IG # 0.02 10e3/ul Normal 0.00-0.03 [facility] Comment on above: Performed By: #### H H #### [facility] [address] [place] [address] Sunitha Tram IG % 0.3 % Normal 0.0-0.5 [facility] Comment on above: Performed By: #### H H #### [facility] [address] [place] [address] Sunitha Tram LYMPH # 1.8 103/ul Normal 1.2-3.8 [facility] Comment on above: Performed By: #### H H #### [facility] [address] [place] [address] Sunitha Tram Lymphocytes/100 WBC (Bld) 25.4 % Normal 20.5-60.0 [facility] Comment on above: Performed By: #### H H #### [facility] [address] [place] [address] Sunitha Tram MANUAL DIFF REQ NO Normal [facility] Comment on above: Performed By: #### H H #### [facility] [address] [place] [address] Sunitha Tram MCH (RBC) [Entitic mass] 27.3 pg Normal 26.7-34.0 [facility] Comment on above: Performed By: #### H H #### [facility] [address] [place] [address] Sunitha Tram MCHC (RBC) [Mass/Vol] 31.3 g/dL Normal 29.9-35.2 [facility] Comment on above: Performed By: #### H H #### [facility] [address] [place] [address] Sunitha Tram MCV (RBC) [Entitic vol] 87.3 fL Normal 81.0-99.0 [facility] Comment on above: Performed By: #### H H #### [facility] [address] [id number] Sunithajack Salesen MONO # 0.6 103/ul Normal 0.3-0.8 [facility] Comment on above: Performed By: #### H H #### [facility] [address] [place], [place] [id number] Sunithajack Ugalde Monocytes/100 WBC (Bld) 8.7 % Normal 1.7-12.0 [facility] Comment on above: Performed By: #### H H #### [facility] [address] [place] [address] Sunitha Tram NEUT # 4.7 103/ul Normal 1.4-6.5 [facility] Comment on above: Performed By: #### H H #### [facility] [address] [place], [place] [id number] Sunitha Ugalde Neutrophils/100 WBC (Bld) 64.7 % Normal 43.0-75.0 [facility] Comment on above: Performed By: #### H H #### [facility] [address] [place], [place] [id number] Sunithajack Ugalde Platelet mean volume (Bld) [Entitic vol] 9.8 fL Normal 9.5-13.5 [facility] Comment on above: Performed By: #### H H #### [facility] [address] [place], [place] [id number] Sunitha Tram PLT 240 103/ul Normal 150-450 [facility] Comment on above: Performed By: #### H H #### [facility] [address] [place], [place] [id number] Sunitha Tram RBC 3.95 106/ul Critically low 4.20-5.40 [facility] Comment on above: Performed By: #### H H #### [facility] [address] [place], [place] [id number] Sunitha Tram WBC 7.3 103/ul Normal 4.0-11.0 [facility] Comment on above: Performed By: #### H H #### [facility] [address] [place], [place] [id number] Sunithajack Ugalde DRUG SCREEN RAPID (URINE)on 07-28-2021 AMP Negative Normal NEGATIVE [facility] Comment on above: Performed By: #### D RUGRPD #### [facility] [address] [place] [address] Dr. Brian Abdi BAR Negative Normal NEGATIVE [facility] Comment on above: Performed By: #### D RUGRPD #### [facility] [address] [place] [address] Dr. Brian Abdi BUP Negative Normal NEGATIVE [facility] Comment on above: Performed By: #### D RUGRPD #### [facility] [address] [place] [address] Dr. Brian Abdi BZO Negative Normal NEGATIVE [facility] Comment on above: Performed By: #### D RUGRPD #### [facility] [address] [place] [address] Dr. Brian Abdi LISA Negative Normal NEGATIVE [facility] Comment on above: Performed By: #### D RUGRPD #### [facility] [address] [place] [address] Dr. Brian Abdi CUT-OFFS SEE BELOW Normal [facility] Comment on above: Result Comment: AMP [...] ng/mL Performed By: #### D RUGRPD #### [facility] [address] [place] [address] Dr. Brian Abdi DRUG CUT HEADER DRUG CLASS TEST SYSTEM CUT-OFF CONCENTRATIONS ARE FOLLOWS: Normal [facility] Comment on above: Performed By: #### D RUGRPD #### [facility] [address] [place] [address] Dr. Brian Abdi mAMP Negative Normal NEGATIVE [facility] Comment on above: Performed By: #### D RUGRPD #### [facility] [address] [place] [address] Dr. Brian Abdi MTD Negative Normal NEGATIVE [facility] Comment on above: Performed By: #### D RUGRPD #### [facility] [address] [place] [address] Dr. Brian Abdi OPI Negative Normal NEGATIVE [facility] Comment on above: Performed By: #### D RUGRPD #### [facility] [address] [place] [address] Dr. Brian Abdi OXY Negative Normal NEGATIVE [facility] Comment on above: Performed By: #### D RUGRPD #### [facility] [address] [place] [address] Dr. Brian Abdi PCP Negative Normal NEGATIVE [facility] Comment on above: Performed By: #### D RUGRPD #### [facility] [address] [place] [address] Dr. Brian Abdi PPX Negative Normal NEGATIVE [facility] Comment on above: Performed By: #### D RUGRPD #### [facility] [address] [place] [address] Dr. Brian Abdi TCA Negative Normal NEGATIVE [facility] Comment on above: Performed By: #### D RUGRPD #### [facility] [address] [place] [address] Dr. Brian Abdi THC Negative Normal NEGATIVE [facility] Comment on above: Performed By: #### D RUGRPD #### [facility] [address] [place] [address] Dr. Brian Abdi TYPE AND SCREENon 07-28-2021 TYPE AND SCREEN Negative Normal [facility] Comment on above: Performed By: #### T NS #### [facility] [address] [place] [address] Dr. 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 YELLOW Normal YELLOW [facility] Comment on above: Performed By: #### H H #### [facility] [address] [place] [address] Sunitha Tram Glucose Ql (U) Negative Normal NEGATIVE [facility] Comment on above: Performed By: #### H H #### [facility] [address] [place] [address] Sunitha Tram Hemoglobin Ql (U) Negative Normal NEGATIVE [facility] Comment on above: Performed By: #### H H #### [facility] [address] [place] [address] Sunitha Tram Ketones Ql (U) Negative Normal NEGATIVE [facility] Comment on above: Performed By: #### H H #### [facility] [address] [place] [address] Sunitha Tram LEUKOCYTES Negative Normal NEGATIVE [facility] Comment on above: Performed By: #### H H #### [facility] [address] [place] [address] Sunitha Tram Nitrite Ql (U) Negative Normal NEGATIVE [facility] Comment on above: Performed By: #### H H #### [facility] [address] [place] [address] Sunitha Tram pH (U) 6.0 [pH] Normal 5-9 [facility] Comment on above: Performed By: #### H H #### [facility] [address] [place] [address] Sunitha Tram SPEC GRAVITY <=1.005 Abnormal 1.005-<=1.025 [facility] Comment on above: Performed By: #### H H #### [facility] [address] [place] [address] Sunitha Tram UA PROTEIN Negative Normal NEGATIVE/ TRACE [facility] Comment on above: Performed By: #### H H #### [facility] [address] [place] [address] Sunitha Ugalde UR MICRO IND NOT INDICATED Normal [facility] Comment on above: Performed By: #### H H #### [facility] [address] [place] [address] Sunitha Ugalde Urobilinogen Qn (U) 0.2 {Fito'U}/dL Normal 0.2 - 1. 0 [facility] Comment on above: Performed By: #### H H #### [facility] [address] [place] [address] Sunitha Ugalde Covid-19 PCR ([facility])on 06-28 SARS-CoV-2 (COVID-19) RNA JEROD+probe Ql (Unsp spec) Not detected Normal NOT DETECTED [facility] Comment on above: Result Comment: This test is not yet approved or cleared by the [place] FDA. When there are no FDA-approved or cleared tests available, and other criteria are met, FDA can make tests available under an emergency access mechanism called an Emergency Use Authorization (EUA). The EUA for this test is supported by the Customs Verifier of Health and Human Service's (HHS's) declaration [...] SARS-CoV-2. Performed By: #### D RUGRPD #### [facility] [address] [place] [address] Dr. Brian Abdi GROUP B STREP CULTUREon 06-27 S. agalactiae Ag Ql (Unsp spec) Culture Observations: TYRONE CALD TO TRAM TRAORE,POLE FRAMER MACHINE@/ 21/RK Isolate 1 Streptococcus agalactiae Moderate growth [...] F Tetracycline <=0.25 S F Normal [facility] Comment on above: Performed By: #### G BSCX #### [facility] [address] [place] [address] Dr. Brian Abdi HEMOGRAM AND PLATELon 2020 Hematocrit (Bld) [Volume fraction] 33.7 % Critically low 36.0-48.0 [facility] Comment on above: Performed By: #### H H #### [facility] [address] [place] [address] Sunitha Ugalde Hemoglobin (Bld) [Mass/Vol] 10.8 g/dL Critically low 12.0-16.0 [facility] Comment on above: Performed By: #### H H #### [facility] [address] [place] [address] Sunitha Ugalde MCH (RBC) [Entitic mass] 28.3 pg Normal 26.7-34.0 [facility] Comment on above: Performed By: #### H H #### [facility] [address] [place] [address] Sunitha Ugalde MCHC (RBC) [Mass/Vol] 32.0 g/dL Normal 29.9-35.2 [facility] Comment on above: Performed By: #### H H #### [facility] [address] [place] [address] Sunitha Ugalde MCV (RBC) [Entitic vol] 88.2 fL Normal 81.0-99.0 [facility] Comment on above: Performed By: #### H H #### [facility] [address] [place] [address] Sunitha Ugalde PLT 252 103/ul Normal 150-450 [facility] Comment on above: Performed By: #### H H #### [facility] [address] [address] Sunitha Ugalde RBC 3.82 106/ul Critically low 4.20-5.40 [facility] Comment on above: Performed By: #### H H #### [facility] [address] [place] [address] Sunithajack Ugalde WBC 8.2 103/ul Normal 4.0-11.0 [facility] Comment on above: Performed By: #### H H #### [facility] [address] [place] [address] Sunitha Ugalde GLUCOSE - 1HRon 04-16-2021 Glucose [Mass/Vol] 129 mg/dL Critically high 74-106 [facility] Comment on above: Performed By: #### D RUGRPD #### [facility] [address] [place] [address] Dr. Brian Abdi HEMOGLOBINon 04-16-2021 Hemoglobin (Bld) [Mass/Vol] 10.8 g/dL Critically low 12.0-16.0 [facility] Comment on above: Performed By: #### H H #### [facility] [address] [place] [address] Sunitha Tram AFP MATERNAL FOR SPINA BIFID Aon 03-19-2021 AFP MoM 0.91 Normal [facility] Comment on above: Performed By: #### H H #### [facility] [address] [place] [address] Sunitha Tram AFP Value 47.2 ng/mL Normal [facility] Comment on above: Performed By: #### H H #### [facility] [address] [place] [address] Sunitha Tram AFP, Serum for Spina Bifida Report Normal [facility] Comment on above: Performed By: #### H H #### [facility] [address] [place] [address] Sunitha Tram Comment Comment Normal [facility] Comment on above: Result Comment: Isa Robles, Ph.D., [facility] Director . References: Available Upon Request. . Multiples Of Median Cutoffs For AFP Elevations Arroyo 2.5 Black 2.8 IDD 2.0 Twins 4.5 Abbreviation Definitions IDD - Insulin Dep Diabetes OSBR - Open Spina Bifida Risk . For further inquiries contact [facility] at [phone]. Performed By: #### H H #### [facility] [address] [address] Sunitha Ugalde Gest Age Collection Date 20.1 weeks Normal [facility] Comment on above: Performed By: #### H H #### [facility] [address] [place] [address] Sunitha Ugalde Gestat, Age Based on DEL Normal [facility] Comment on above: Result Comment: 03/2021 Recalculations are not recommended when gestational dating by LMP and ultrasound are within 10 days. Performed By: #### H H #### [facility] [address] [address] Sunitha Ugalde Insulin Dep Diabetes No Normal [facility] Comment on above: Performed By: #### H H #### [facility] [address] [place] [address] Sunitha Ugalde Interpretation Comment Normal [facility] Comment on above: Result Comment: Inte [...] Customer Services to discuss available options. The [employer] recommends amniocentesis be offered to women age 35 and older. Performed By: #### H H #### [facility] [address] [address] Sunitha Ugalde [age] Normal [facility] Comment on above: Performed By: #### H H #### [facility] [address] [address] Snuitha Ugalde Multiple Gestation No Normal [facility] Comment on above: Performed By: #### H H #### [facility] [address] [address] Sunitha Ugalde [place] [id number] [facility] Comment on above: Performed By: #### H H #### [facility] [address] [address] Sunitha Ugalde PDF . Normal [facility] Comment on above: Performed By: #### H H #### [facility] [address] [address] Sunitha Ugalde Race Normal [facility] Comment on above: Performed By: #### H H #### [facility] [address] [address] Sunitha Ugalde Test Results: Negative Normal [facility] Comment on above: Performed By: #### H H #### [facility] [address] [place] [address] Sunitha Ugalde US PREG ANATOMY SINGLEon US [...] TRENT LEE Date: 2021-03-17 11:10 Normal [facility] HEMOGLOBIN AND HEMATOCRITon 03-12-2021 Hematocrit (Bld) [Volume fraction] 34.4 % Critically low 36.0-48.0 [facility] Comment on above: Performed By: #### H H #### [facility] [address] [place] [address] Sunitha Ugalde Hemoglobin (Bld) [Mass/Vol] 11.3 g/dL Critically low 12.0-16.0 [facility] Comment on above: Performed By: #### H H #### [facility] [address] [place] [address] Sunitha Ugalde CHLAMYDIA/GONOCOCCUS JEROD (SW AB/URINE/PAPon 02-28-2021 Chlamydia trachomatis, JEROD Negative Normal Negative [facility] Comment on above: Performed By: #### C T/NGNA #### [facility] [address] [place] [address] Sunitha Ugalde Neisseria gonorrhoeae, JEROD Negative Normal Negative [facility] Comment on above: Performed By: #### C T/NGNA #### [facility] [address] [place] [address] Sunithajack Ugalde PAP ACOG PANEL 2: 21 to 29on 02-28-2021 . . Normal [facility] Comment on above: Performed By: #### H H #### [facility] [address] [place], [place] [id number] Sunitha Ugalde Age Gdln ACOG Testing - Normal [facility] Comment on above: Performed By: #### H H #### [facility] [address] [place] [address] Sunitha Ugalde DIAGNOSIS: Comment Normal [facility] Comment on above: Result Comment: NEGA TIVE FOR INTRAEPITHELIAL LESION OR MALIGNANCY. Performed By: #### H H #### [facility] [address] [address] Sunitha Ugalde Methodology: Comment Normal [facility] Comment on above: Result Comment: This liquid based ThinPrep(R) pap test was screened with the use of an image guided system. Performed By: #### H H #### [facility] [address] [place] [address] Sunitha Ugalde Note: Comment Normal [facility] Comment on above: Result Comment: The Pap smear is a screening test designed to aid in the detection of premalignant and malignant conditions of the uterine cervix. It is not a diagnostic procedure and should not be used as the sole means of detecting cervical cancer. Both false-positive and false-negative reports do occur. . Performed By: #### H H #### [facility] [address] [place] [address] Sunitha Ugalde Performed by: Comment Normal [facility] Comment on above: Result Comment: Aixa Betancur, Loom Fixer Supervisor (ASCP) Performed By: #### H H #### [facility] [address] [place] [address] Sunitha Ugalde Reflex Criteria: Comment Normal [facility] Comment on above: Result Comment: The HPV DNA reflex criteria were not met with this specimen result therefore, no HPV testing was performed. . Performed By: #### H H #### [facility] [address] [place] [address] Sunitha Ugalde Specimen adequacy: Comment Normal [facility] Comment on above: Result Comment: Sati sfactory for evaluation. No endocervical component is identified. Performed By: #### H H #### [facility] [address] [place], [place] [id number] Sunitha Ugalde VAGINITIS/VAGINOSIS DNA PROB Constantine 02-27-2021 Tricia species Negative Normal Negative [facility] Comment on above: Performed By: #### V AGINT #### [facility] [address] [place] [address] Sunitha Ugalde Gardnerella vaginalis Negative Normal Negative [facility] Comment on above: Performed By: #### V AGINT #### [facility] [address] [place] [address] Sunitha Ugalde Trichomonas vaginalis Negative Normal Negative [facility] Comment on above: Performed By: #### V AGINT #### [facility] [address] [place], [place] [id number] Sunitha Ugalde CULTURE URINEon 01-16-2021 CULTURE URINE [...] S F Tetracycline <=0.25 S F Normal [facility] Comment on above: Performed By: #### D RUGRPD #### [facility] [address] [place] [address] Dr. Brian Abdi HEP B SURFACE ANTIGEN SCREEN on 01-14-2021 HBsAg Screen Negative Normal Negative [facility] Comment on above: Performed By: #### H BSANS #### [facility] [address] [place] [address] Sunitha Ugalde HEPATITIS C VIRUS AB W/ REFL EX QUANTon 01-14-2021 HCV AB 0.1 s/co ratio Normal 0.0-0.9 [facility] Comment on above: Performed By: #### H H #### [facility] [address] [place], [place] [id number] Sunitha Ugalde Interpretation: Comment Normal [facility] Comment on above: Result Comment: Nega tive Not infected with HCV, unless recent infection is suspected or other evidence exists to indicate HCV infection. Performed By: #### H H #### [facility] [address] [place] [address] Sunitha Ugalde HIV 1 AND 2 WITH REFLEXon HIV Screen 4th Generation wRfx Non-Reactive Normal Non Reactive [facility] Comment on above: Performed By: #### D RUGRPD #### [facility] [address] [place] [address] Dr. Brian Abdi RPR QUANTon 01-14-2021 Rapid Plasma Reagin, Quant Non-Reactive Normal NonRea<1:1 [facility] Comment on above: Performed By: #### H H #### [facility] [address] [place], [place] [id number] Sunitha Ugalde RUBELLA AB IGGon 01-14-2021 Rubella Antibodies, IgG 1.27 index Normal Immune >0.99 [facility] Comment on above: Result Comment: Non- immune <0.90 Equivocal 0.90 - 0.99 Immune >0.99 Performed By: #### H H #### [facility] [address] [place] [address] Sunitha Tram CBC AUTO DIFFon 01-13-2021 BASO # 0.0 103/ul Normal 0.0-0.1 [facility] Comment on above: Performed By: #### C BC #### [facility] [address] [place], [place] [address] Sunitha Tram Basophils/100 WBC (Bld) 0.4 % Normal 0.2-2.0 [facility] Comment on above: Performed By: #### C BC #### [facility] [address] [place] [address] Sunitha Tram EO # 0.1 103/ul Normal 0.0-0.7 [facility] Comment on above: Performed By: #### C BC #### [facility] [address] [place] [address] Sunitha Tram Eosinophils/100 WBC (Bld) 0.7 % Critically low 0.9-7.0 [facility] Comment on above: Performed By: #### C BC #### [facility] [address] [place], [place] [address] Sunitha Tram Erythrocyte distribution width (RBC) [Ratio] 13.7 % Normal 11.0-15.0 [facility] Comment on above: Performed By: #### C BC #### [facility] [address] [place] [address] Sunithajack Ugalde Hematocrit (Bld) [Volume fraction] 39.1 % Normal 36.0-48.0 [facility] Comment on above: Performed By: #### C BC #### [facility] [address] [place] [address] Sunitha Tram Hemoglobin (Bld) [Mass/Vol] 12.7 g/dL Normal 12.0-16.0 [facility] Comment on above: Performed By: #### C BC #### [facility] [address] [place] [address] Sunitha Tram IG # 0.02 10e3/ul Normal 0.00-0.03 [facility] Comment on above: Performed By: #### C BC #### [facility] [address] [place] [address] Sunitha Tram IG % 0.3 % Normal 0.0-0.5 [facility] Comment on above: Performed By: #### C BC #### [facility] [address] [place] [address] Sunitha Tram LYMPH # 1.6 103/ul Normal 1.2-3.8 [facility] Comment on above: Performed By: #### C BC #### [facility] [address] [place] [address] Sunitha Ugalde Lymphocytes/100 WBC (Bld) 21.6 % Normal 20.5-60.0 [facility] Comment on above: Performed By: #### C BC #### [facility] [address] [place] [address] Sunitha Ugalde MANUAL DIFF REQ NO Normal [facility] Comment on above: Performed By: #### C BC #### [facility] [address] [place], [place] [address] Sunitha Ugalde MCH (RBC) [Entitic mass] 27.6 pg Normal 26.7-34.0 [facility] Comment on above: Performed By: #### C BC #### [facility] [address] [place], [place] [address] Sunithajack Ugalde MCHC (RBC) [Mass/Vol] 32.5 g/dL Normal 29.9-35.2 [facility] Comment on above: Performed By: #### C BC #### [facility] [address] [place], [place] [address] Sunitha Ugalde MCV (RBC) [Entitic vol] 85.0 fL Normal 81.0-99.0 [facility] Comment on above: Performed By: #### C BC #### [facility] [address] [place], [place] [address] Sunitha Ugalde MONO # 0.4 103/ul Normal 0.3-0.8 [facility] Comment on above: Performed By: #### C BC #### [facility] [address] [place] [address] Sunitha Ugalde Monocytes/100 WBC (Bld) 5.4 % Normal 1.7-12.0 [facility] Comment on above: Performed By: #### C BC #### [facility] [address] [place] [address] Sunitha Ugalde NEUT # 5.4 103/ul Normal 1.4-6.5 [facility] Comment on above: Performed By: #### C BC #### [facility] [address] [place], [place] [address] Sunitha Ugalde Neutrophils/100 WBC (Bld) 71.6 % Normal 43.0-75.0 [facility] Comment on above: Performed By: #### C BC #### [facility] [address] [place], [place] [address] Sunithajack Ugalde Platelet mean volume (Bld) [Entitic vol] 9.3 fL Critically low 9.5-13.5 [facility] Comment on above: Performed By: #### C BC #### [facility] [address] [place], [place] [address] Sunitha Tram PLT 296 103/ul Normal 150-450 [facility] Comment on above: Performed By: #### C BC #### [facility] [address] [place], [place] [address] Sunitha Tram RBC 4.60 106/ul Normal 4.20-5.40 [facility] Comment on above: Performed By: #### C BC #### [facility] [address], [place] [address] Sunitha Ugalde WBC 7.5 103/ul Normal 4.0-11.0 [facility] Comment on above: Performed By: #### C BC #### [facility] [address], [place] [address] Sunitha Ugalde GLYCOHEMOGLOBIN A1Con 2020 ADA RECOMMENDATION ADA THERAPEUTIC TARGET 6.0 - 7.0 ACTION SUGGESTED > 7.0 Normal [facility] Comment on above: Performed By: #### A 1C #### [facility] [address], [place] [address] Sunitha Ugalde Glucose [Mass/Vol] 111 mg/dL Normal [facility] Comment on above: Performed By: #### A 1C #### [facility] [address] [place], [place] [address] Sunitha Ugalde HbA1c (Bld) [Mass fraction] 5.5 % Normal <=6.0 [facility] Comment on above: Performed By: #### A 1C #### [facility] [address] [place] [address] Sunitha Ugalde BARBI BOX TEST PT SEND OUTo n 01-13-2021 SENT TO REF LAB 01/13/21 Normal [facility] Comment on above: Performed By: #### D SHARONRPD #### [facility] [address] [place] [address] [address] Brian Abdi TYPE AND SCREENon 01-13-2021 TYPE AND SCREEN Negative Normal [facility] Comment on above: Performed By: #### D SHARONRPD #### [facility] [address] [place] [address] [address] Brian Abdi Vital Signs Date Time Vital Sign Value Performing Clinician Facility 05-08-2025 12:00-0400 Body height 157.5 cm Sera RIVAS Work Phone: [facility] 05-08-2025 11:55-0400 Body mass index (BMI) [Ratio] 41.88 kg/m2 Sera RIVAS Work Phone: [facility] 05-08-2025 11:55-0400 Body weight 103.87 kg Sera Mckeon PA Work Phone: [facility] 05-08-2025 11:55-0400 Diastolic blood pressure 90 mm[Hg] Sera Mike PA Work Phone: [facility] 05-08-2025 11:55-0400 Systolic blood pressure 130 mm[Hg] Sera Mike PA Work Phone: [facility] 05-01-2025 09:17-0400 Body weight 103.15 kg Andres Dante DO Work Phone: [facility] 05-01-2025 09:17-0400 Diastolic blood pressure 82 mm[Hg] Andres Dante DO Work Phone: [facility] 05-01-2025 09:17-0400 Systolic blood pressure 130 mm[Hg] Andres Dante DO Work Phone: [facility] 04-19-2025 08:43-0400 Body weight 102.06 kg Sera Mckeon PA Work Phone: [facility] 04-19-2025 08:43-0400 Diastolic blood pressure 68 mm[Hg] Sera Mckeon PA Work Phone: [facility] 04-19-2025 08:43-0400 Systolic blood pressure 120 mm[Hg] Sera Mckeon PA Work Phone: [facility] 03-21-2025 09:04-0400 Body weight 99.79 kg Kamila Valeriy [employer]ICK [employer] Work Phone: [facility] 03-21-2025 09:04-0400 Diastolic blood pressure 60 mm[Hg] Kamila Valeriy [employer] Work Phone: [facility] 03-21-2025 09:04-0400 Systolic blood pressure 120 mm[Hg] Kamila Valeriy [employer] Work Phone: [facility] 03-07-2025 15:18-0400 Body weight 99.97 kg Andres Dante DO Work Phone: [facility] 03-07-2025 15:18-0400 Diastolic blood pressure 70 mm[Hg] Andres Dante DO Work Phone: [facility] 03-07-2025 15:18-0400 Systolic blood pressure 120 mm[Hg] Andres Dante DO Work Phone: [facility] 02-21-2025 15:04-0400 Body weight 99.22 kg Andres Dante DO Work Phone: [facility] 02-21-2025 15:04-0400 Diastolic blood pressure 72 mm[Hg] Andres Dante DO Work Phone: [facility] 02-21-2025 15:04-0400 Systolic blood pressure 106 mm[Hg] Andres Dante DO Work Phone: [facility] 01-23-2025 15:00-0400 Body weight 96.98 kg Andres Dante DO Work Phone: [facility] 01-23-2025 15:00-0400 Diastolic blood pressure 70 mm[Hg] Andres Dante DO Work Phone: [facility] 01-23-2025 15:00-0400 Systolic blood pressure 120 mm[Hg] Andres Dante DO Work Phone: [facility] 12-26-2024 14:32-0400 Body weight 95.44 kg Andres Dante DO Work Phone: [facility] 12-26-2024 14:32-0400 Diastolic blood pressure 70 mm[Hg] Andres Dante DO Work Phone: [facility] 12-26-2024 14:32-0400 Systolic blood pressure 108 mm[Hg] Andres Dante DO Work Phone: [facility] 11-27-2024 14:37-0500 Body weight 96.53 kg Andres Dante DO Work Phone: [facility] 11-27-2024 14:37-0500 Diastolic blood pressure 70 mm[Hg] Andres Dante DO Work Phone: [facility] 11-27-2024 14:37-0500 Systolic blood pressure 122 mm[Hg] Andres Howell DO Work Phone: [facility] 10-26-2024 14:54-0500 Body weight 96.25 kg Noms Nurse [facility] 03-19-2021 02:06-0400 Body weight 83.[address] ANDRES HOWELL [facility] Comment on above: Performed By: #### HH #### [facility] [address], [place] [address] Sunitha Ugalde Encounters Encounter Date Encounter Type Care Provider Facility Start: 05-09-2025 End: 05-09-2025 Clinisync Result Encounter Sera RIVAS Work Phone: [facility] Unsolicited Start: 05-09-2025 End: 05-09-2025 Clinisync Result Encounter Sera RIVAS Work Phone: [facility] Unsolicited Start: 05-08-2025 End: 05-08-2025 Bamboo flowsheet Sera RIVAS Work Phone: [facility] Start: 05-08-2025 End: 05-08-2025 Bamboo flowsheet Sera RIVAS Work Phone: [facility] Start: 05-08-2025 End: 05-08-2025 Office outpatient visit 15 minutes Sera RIVAS Work Phone: [facility] Comment on above: Third trimester preg ulises ([facility]); 37 weeks gestation of ([facility]); induced hypertension, antepartum ([facility]) Start: 05-01-2025 End: 05-01-2025 Bamboo flowsheet Andres Dante DO Work Phone: [facility] Start: 05-01-2025 End: 05-01-2025 Bamboo flowsheet Andres Dante DO Work Phone: [facility] Start: 05-01-2025 End: 05-01-2025 flow sheet Andres Dante DO Work Phone: [facility] Comment on above: 36 weeks gestation o f ([facility]); Third trimester ([facility]); H/O section Start: 05-01-2025 End: 05-01-2025 ambulatory ANDRES DANTE Not Available Start: 04-19-2025 End: 04-19-2025 Office outpatient visit 15 minutes Sera RIVAS Work Phone: [facility] Comment on above: 34 weeks gestation o f ([facility]); Third trimester ([facility]) Start: 04-19-2025 End: 04-19-2025 ambulatory SERA MCKEON Not Available Start: 03-21-2025 End: 03-21-2025 Bamboo flowsheet Kamila Valeriy BRICK [employer]ER Work Phone: [facility] Start: 03-21-2025 End: 03-21-2025 Bamboo flowsheet Kamila Valeriy [employer]ICK [employer] Work Phone: [facility] Start: 03-21-2025 End: 03-21-2025 flow sheet Kamila Valeriy [employer]ICK [employer] Work Phone: [facility] Comment on above: Size of fetus incons istent with dates in third trimester ([facility]) (Primary Dx); Third trimester ([facility]); 30 weeks gestation of ([facility]) Start: 03-21-2025 End: 03-21-2025 ambulatory KAMILA VALERIY Not Available Start: 03-14-2025 End: 03-14-2025 Clinisync Result Encounter Sera RIVAS Work Phone: [facility] Department Unsolicited Start: 03-14-2025 End: 03-14-2025 Clinisync Result Encounter Sera RIVAS Work Phone: [facility] Unsolicited Start: 03-07-2025 End: 03-07-2025 flow sheet Andres Dante DO Work Phone: [facility] Comment on above: size inconsist ent with dates (Primary Dx); 28 weeks gestation of ; Third trimester Start: 03-07-2025 End: 03-07-2025 ambulatory ANDRES DANTE Not Available Start: 03-07-2025 End: 03-07-2025 Bamboo flowsheet Andres Dante DO Work Phone: [facility] Start: 03-07-2025 End: 03-07-2025 Bamboo flowsheet Andres Dante DO Work Phone: [facility] Start: 03-07-2025 End: 03-07-2025 Clinisync Result Encounter Andres Dante DO Work Phone: [facility] External Department Unsolicited Start: 02-21-2025 End: 02-21-2025 flow sheet Andres Dante DO Work Phone: [facility] Comment on above: Second trimester pre gnancy; 26 weeks gestation of ; Diabetes mellitus screening Start: 02-21-2025 End: 02-21-2025 ambulatory ANDRES DANTE Not Available Start: 02-21-2025 End: 02-21-2025 Bamboo flowsheet Andres Dante DO Work Phone: [facility] Start: 02-21-2025 End: 02-21-2025 Bamboo flowsheet Andres Dante DO Work Phone: [facility] Start: 01-23-2025 End: 01-23-2025 ambulatory ANDRES DANTE Not Available Start: 01-23-2025 End: 01-23-2025 Office outpatient visit 5 minutes Andres Dante DO Work Phone: [facility] Comment on above: Second trimester pre gnancy; 22 weeks gestation of ; Diabetes mellitus screening Start: 01-23-2025 End: 01-23-2025 Bamboo flowsheet Andres Dante DO Work Phone: [facility] Start: 01-23-2025 End: 01-23-2025 Bamboo flowsheet Andres Dante DO Work Phone: [facility] Start: 01-10-2025 End: 01-10-2025 ambulatory ANDRES DANTE Not Available Start: 12-26-2024 End: 12-26-2024 Bamboo flowsheet Andres Dante DO Work Phone: [facility] Start: 12-26-2024 End: 12-27-2024 Bamboo flowsheet Andres Dante DO Work Phone: [facility] Start: 12-26-2024 End: 12-27-2024 External Result Encounter Andres Dante DO Work Phone: [facility] External Department Unsolicited Start: 12-26-2024 End: 12-26-2024 Patient encounter procedure Andres Dante DO Work Phone: [facility] Start: 12-26-2024 End: 12-26-2024 flow sheet Andres Dante DO Work Phone: [facility] Comment on above: Second trimester pre gnancy; 18 weeks gestation of ; Vaginal discharge; STD exposure; Well woman exam with routine gynecological exam; Gestational diabetes mellitus (GDM), antepartum, gestational diabetes method of control unspecified; Elevated glucose tolerance test; Screening, , for anatomic survey; Thyroid disorder screening Start: 12-26-2024 End: 12-26-2024 ambulatory ANDRES DANTE Not Available Start: 12-20-2024 End: 12-20-2024 Clinisync Result Encounter Andres Dante DO Work Phone: [facility] External Department Unsolicited Start: 12-20-2024 End: 12-20-2024 Clinisync Result Encounter Andres Dante DO Work Phone: [facility] External Department Unsolicited Start: 11-27-2024 End: 11-27-2024 flow sheet Andres Dante DO Work Phone: [facility] Comment on above: 13 weeks [...] for preprocedural laboratory examination DR ANDRES HOWELL [facility] Start: 07-22-2021 End: 07-22-[address] [...] Date Procedure Procedure Detail Performing Clinician Start: 05-09-2025 ALL CBC WITH AUTO DIFF Sera RIVAS Work Phone: Start: 05-08-2025 Urnls dip stick/tabl et rgnt non-auto w/o micrscp Sera RIVAS Work Phone: Start: 05-01-2025 Urnls dip stick/tabl et rgnt non-auto w/o micrscp Andres Dante DO Work Phone: Start: 04-19-2025 Urnls dip stick/tabl et rgnt non-auto w/o micrscp Sera RIVAS Work Phone: Start: 03-21-2025 Urnls dip stick/tabl et rgnt non-auto w/o micrscp Kamila Crooks NP Work Phone: Start: 03-14-2025 US OB GROWTH Sera RIVAS Work Phone: Start: 03-07-2025 Urnls dip stick/tabl et rgnt non-auto w/o micrscp Andres Dante DO Work Phone: Start: 03-07-2025 ALL CBC WITH AUTO DIFF Andres Dante DO Work Phone: Start: 02-21-2025 Urnls dip stick/tabl et rgnt non-auto w/o micrscp Andres Dante DO Work Phone: Start: 01-23-2025 Urnls dip stick/tabl et rgnt non-auto w/o micrscp Andres Dante DO Work Phone: Start: 12-26-2024 Urnls dip stick/tabl et rgnt non-auto w/o micrscp Andres Dante DO Work Phone: Start: 12-26-2024 RECURRENT VAGINITIS (HTRX) Andres Dante DO Work Phone: Start: 12-20-2024 GLUCOSE TOLERANCE 3 HOUR Andres Dante DO Work Phone: Start: 11-27-2024 Urnls dip stick/tabl et rgnt non-auto w/o micrscp Andres Dante DO Work Phone: Start: 11-17-2024 MLR HEMOGLOBIN A1C Core y Dante DO Work Phone: Start: 10-26-2024 End: 10-26-2024 Urnls dip stick/tablet rgnt non-auto w/o micrscp Andres Dante DO Work Phone: Start: 07-28-2021 Extraction of Produc ts of Conception, Low Cervical, Open Approach DR ANDRES HOWELL H/O: section H/O sectio n Andres Ingramo DO Work Phone: Plan of Treatment Date Care Activity Detail Author Start: 05-17-2025 End: 05-17-2025 Professional / ancillary services management [facility] Start: 05-14-2025 End: 05-14-2025 Patient encounter procedure 05/14/2025 8:30 AM EDT Routine ANA RUTLEDGE [address] [place] [id number] Andres Howell DO [address] [place] [address] [facility] Start: 05-08-2025 End: 05-08-2026 Alanine aminotransferase [Enzymatic activity/volume] in Serum or Plasma ALT Lab Routine induced hypertension, antepartum (HHS-HCC) Expected: 05/08/2025 (Approximate), Expires: 05/08/2026 [facility] Comment on above: Expected: 05/08/2025 (Approximate), Expires: 05/08/2026 Start: 05-08-2025 End: 05-08-2026 Aspartate aminotransferase [Enzymatic activity/volume] in Serum or Plasma AST Lab Routine induced hypertension, antepartum (HHS-HCC) Expected: 05/08/2025 (Approximate), Expires: 05/08/2026 [facility] Comment on above: Expected: 05/08/2025 (Approximate), Expires: 05/08/2026 Start: 05-08-2025 End: 05-08-2026 CBC W Auto Differential panel - Blood CBC and differential Lab Routine induced hypertension, antepartum (HHS-HCC) Expected: 05/08/2025 (Approximate), Expires: 05/08/2026 [facility] Comment on above: Expected: 05/08/2025 (Approximate), Expires: 05/08/2026 Start: 05-08-2025 End: 05-08-2026 Creatinine [Mass/volume] in Serum or Plasma Creatinine Lab Routine induced hypertension, antepartum (HHS-HCC) Expected: 05/08/2025 (Approximate), Expires: 05/08/2026 [facility] Work Phone: Comment on above: Expected: 05/08/2025 (Approximate), Expires: 05/08/2026 Start: 05-08-2025 End: 05-08-2026 Lactate dehydrogenase [Enzymatic activity/volume] in Serum or Plasma by Lactate to pyruvate reaction Lactate dehydrogenase Lab Routine induced hypertension, antepartum (HHS-HCC) Expected: 05/08/2025, Expires: 05/08/2026 [facility] Comment on above: Expected: 05/08/2025 , Expires: 05/08/2026 Start: 05-08-2025 End: 05-08-2026 Protein, urine, 24 hour Protein, urine, 24 hour Lab Routine induced hypertension, antepartum (HHS-HCC) Expected: 05/08/2025 (Approximate), Expires: 05/08/2026 [facility] Comment on above: Expected: 05/08/2025 (Approximate), Expires: 05/08/2026 Start: 05-08-2025 End: 05-08-2026 Pt and ptt Pt and ptt Lab Routine induced hypertension, antepartum (HHS-HCC) Expected: 05/08/2025, Expires: 05/08/2026 [facility] Comment on above: Expected: 05/08/2025 , Expires: 05/08/2026 Start: 05-08-2025 End: 05-08-2026 Urate [Mass/volume] in Serum or Plasma Uric acid Lab Routine induced hypertension, antepartum (HHS-HCC) Expected: 05/08/2025 (Approximate), Expires: 05/08/2026 [facility] Comment on above: Expected: 05/08/2025 (Approximate), Expires: 05/08/2026 Start: 05-08-2025 End: 05-08-2026 Urea nitrogen [Mass/volume] in Serum or Plasma BUN Lab Routine induced hypertension, antepartum (HHS-HCC) Expected: 05/08/2025, Expires: 05/08/2026 [facility] Comment on above: Expected: 05/08/2025 , Expires: 05/08/2026 Start: 05-08-2025 End: 11-08-2025 US biophysical profile w non stress test US biophysical profile w non stress test Imaging Routine induced hypertension, antepartum (HHS-HCC) Expected: 05/08/2025 (Approximate), Expires: 11/08/2025 [facility] Comment on above: Expected: 05/08/2025 (Approximate), Expires: 11/08/2025 Start: 05-08-2025 End: 05-08-2025 Patient encounter procedure 05/08/2025 11:20 AM EDT Routine ANA RUTLEDGE [address] [place] [phone] Sera Mckeon PA [address] [place] [address] [facility] Start: 05-01-2025 End: 05-01-2026 CULTURE, GROUP B STREP WITH SUSCEPTIBLITY CULTURE, GROUP B STREP WITH SUSCEPTIBLITY Lab Routine Third trimester ([facility]) Expected: 05/01/2025, Expires: 05/01/2026 [facility] Work Phone: Comment on above: Expected: 05/01/2025 , Expires: 05/01/2026 Start: 05-01-2025 End: 05-01-2025 Patient encounter procedure [facility] Comment on above: Arrived Start: 03-21-2025 End: 07-21-2025 US for US OB follow up transabdominal approach Imaging Routine Size of fetus inconsistent with dates in third trimester ([facility]) Expected: 03/21/2025, Expires: 07/21/2025 [facility] Work Phone: Comment on above: Expected: 03/21/2025 , Expires: 07/21/2025 Start: 03-21-2025 End: 03-21-2025 Patient encounter procedure [facility] Comment on above: Arrived Start: 03-07-2025 End: 03-07-2025 Patient encounter procedure [facility] Comment on above: Arrived Start: 03-07-2025 End: 07-07-2025 US for US OB follow up transabdominal approach Imaging Routine size inconsistent with dates Expected: 03/07/2025, Expires: 07/07/2025 [facility] Work Phone: Comment on above: Expected: 03/07/2025 , Expires: 07/07/2025 Start: 02-21-2025 End: 02-21-2025 Patient encounter procedure [facility] Comment on above: Arrived Start: 01-23-2025 End: 01-23-2025 Patient encounter procedure 01/23/2025 2:50 PM EDT Routine [facility] [address] [place] [phone] Andres Howell, [address] [place] [address] [facility] Start: 01-23-2025 End: 01-23-2026 CBC panel - Blood by Automated count CBC Lab Routine Diabetes mellitus screening Expected: 01/23/2025 (Approximate), Expires: 01/23/2026 [facility] Work Phone: Comment on above: Expected: 01/23/2025 (Approximate), Expires: 01/23/2026 Start: 01-10-2025 End: 01-10-2025 Professional / ancillary services management 01/10/2025 2:30 PM EDT Ancillary Procedure [facility] [address] [place] [phone] [facility] Start: 12-26-2024 End: 02-25-2025 Alpha fetoprotein, maternal Alpha fetoprotein, maternal Lab Routine Second trimester Expected: 12/26/2024 (Approximate), Expires: 02/25/2025 [facility] Comment on above: Expected: 12/26/2024 (Approximate), Expires: 02/25/2025 Start: 12-26-2024 End: 12-26-2025 US for US OB 14+ weeks anatomy scan Imaging Routine Screening, , for anatomic survey Expected: 12/26/2024, Expires: 12/26/2025 [facility] Comment on above: Expected: 12/26/2024 , Expires: 12/26/2025 Start: 12-26-2024 End: 12-26-2024 Patient encounter procedure [facility] Comment on above: Arrived Start: 11-27-2024 End: 11-27-2024 Patient encounter procedure [facility] Comment on above: Arrived Start: 10-26-2024 End: 10-26-2025 ABO/Rh ABO/Rh Lab Routine Missed menses , unspecified gestational age Expected: 10/26/2024 (Approximate), Expires: 10/26/2025 [facility] Comment on above: Expected: 10/26/2024 (Approximate), Expires: 10/26/2025 Start: 10-26-2024 End: 10-26-2025 Blood type and Indirect antibody screen panel - Blood Type and screen Lab Routine Missed menses , unspecified gestational age Expected: 10/26/2024 (Approximate), Expires: 10/26/2025 [facility] Work Phone: Comment on above: Expected: 10/26/2024 (Approximate), Expires: 10/26/2025 Start: 10-26-2024 End: 10-26-2025 Drugs of abuse panel - Urine by Screen method Rapid drug screen, urine Lab Routine , unspecified gestational age Encounter for supervision of normal first in first trimester Expected: 10/26/2024 (Approximate), Expires: 10/26/2025 [facility] Comment on above: Expected: 10/26/2024 (Approximate), Expires: 10/26/2025 Bacteria identified in Urine by Culture Urine culture Microbiology Routine Missed menses Ordered: 10/26/2024 [facility] Comment on above: Ordered: 10/26/2024 CBC W Auto Different ial panel - Blood CBC and differential Lab Routine Missed menses , unspecified gestational age Ordered: 10/26/2024 [facility] Comment on above: Ordered: 10/26/2024 CHLAMYDIA TRACHOMATI S (GENITO/STI) CHLAMYDIA TRACHOMATIS (GENITO/STI) Lab Routine Vaginal discharge STD exposure Ordered: 12/26/2024 [facility] Comment on above: Ordered: 12/26/2024 Hemoglobin A1c/Hemoglobin.total in Blood Hemoglobin A1c Lab Routine Missed menses , unspecified gestational age Ordered: 10/26/2024 [facility] Comment on above: Ordered: 10/26/2024 Hepatitis B virus gardiner rface Ag [Presence] in Serum or Plasma by Immunoassay Hepatitis B surface antigen Lab Routine Missed menses , unspecified gestational age Ordered: 10/26/2024 [facility] Comment on above: Ordered: 10/26/2024 Hepatitis C virus Ab [Presence] in Serum or Plasma by Immunoassay Hepatitis C antibody Lab Routine Missed menses , unspecified gestational age Ordered: 10/26/2024 [facility] Comment on above: Ordered: 10/26/2024 HIV-1/HIV-2 antigen/antibody combination immunoassay HIV-1 and HIV-2 antibodies Lab Routine Missed menses , unspecified gestational age Ordered: 10/26/2024 [facility] Comment on above: Ordered: 10/26/2024 Neisseria gonorrhoea e DNA [Presence] in Unspecified specimen by JEROD with probe detection Neisseria gonorrhea DNA probe, direct Lab Routine Vaginal discharge STD exposure Ordered: 12/26/2024 [facility] Comment on above: Ordered: 12/26/2024 Reagin Ab [Presence] in Serum by RPR RPR Lab Routine Missed menses , unspecified gestational age Ordered: 10/26/2024 [facility] Comment on above: Ordered: 10/26/2024 Rubella antibody, IgG Rubella an tibody, IgG Lab Routine Missed menses , unspecified gestational age Ordered: 10/26/2024 [facility] Comment on above: Ordered: 10/26/2024 SURESWAB(R) ADVANCED VAGINITIS PLUS, TMA SURESWAB(R) ADVANCED VAGINITIS PLUS, TMA Pathology and Cytology Routine Vaginal discharge STD exposure Ordered: 12/26/2024 [facility] Work Phone: Comment on above: Ordered: 12/26/2024 Thyrotropin [Units/v olume] in Serum or Plasma TSH Lab Routine Thyroid disorder screening Ordered: 12/26/2024 [facility] Comment on above: Ordered: 12/26/2024 Thyroxine (T4) free [Mass/volume] in Serum or Plasma T4, free Lab Routine Thyroid disorder screening Ordered: 12/26/2024 [facility] Comment on above: Ordered: 12/26/2024 Payers Date Payer Category Payer Private Health Insurance [facility] [id number] 1998 Unknown [id number] 2.16.840.1.161619.3.579. 2.593 1998 Unknown [id number] 2.16.840.1.179404.3.579. 2.593 1998 Unknown [id number] 2.16.840.1.659273.3.579. 2.593 1998 Unknown [id number] 2.16.840.1.366410.3.579. 2.593 1998 Unknown [id number] 2.16.840.1.878576.3.579. 2.593 1998 Unknown [id number] 2.16.840.1.249286.3.579. 2.593 1998 Unknown [id number] 2.16.840.1.523301.3.579. 2.593 1998 Unknown [id number] 2.16.840.1.424960.3.579. 2.593 1998 Unknown [id number] 2.16.840.1.634574.3.579. 2.593 1998 Unknown [id number] 2.16.840.1.524194.3.579. 2.593 1998 Unknown [id number] 2.16.840.1.368606.3.579. 2.593 1998 Unknown [id number] 2.16.840.1.347993.3.579. 2.593 1998 Unknown [id number] 2.16.840.1.612657.3.579. 2.593 1998 Unknown [id number] 2.16.840.1.368545.3.579. 2.1259 1998 Unknown [id number] 2.16.840.1.651775.3.579. 2.1259 1998 Unknown [id number] 2.16.840.1.127851.3.579. 2.1259 1998 Unknown [id number] 2.16.840.1.106499.3.579. 2.1259 1998 Unknown [id number] 2.16.840.1.331574.3.579. 2.1258 1998 Unknown [id number] 2.16.840.1.664226.3.579. 2.1258 1998 Unknown [id number] 2.16.840.1.489084.3.579. 2.1258 1998 Unknown [id number] 2.16.840.1.816646.3.579. 2.1258 1998 Unknown [id number] 2.16.840.1.092502.3.579. 2.1258 1998 Unknown [id number] 2.16.840.1.496239.3.579. 2.9 1998 Unknown [id number] 2.16.840.1.820079.3.579. 2.1258 1998 Unknown [id number] 2.16.840.1.533484.3.579. 2.9 1959 Private Health Insurance [id number] Self-pay [id number] Unknown [id number] 2.16.840.1.419553.3.579. 2.593 Social History Date Type Detail Facility Tobacco smoking stat [facility] Tobacco smoking consumption unknown [facility] Start: 09-05-2024 [facility] Start: 1998 Sex assigned at Not on file N [facility] Gender identity Not on file [facility] Medical Equipment Procedure Code Equipment Code Equipment Origin al Text Equipment Identifier Dates 1 strip by In Vi tro route Daily Use in the morning prior to breakfast, 1 hour after each meal for a total of 4times daily. [id number] Start: 12-26-2024 End: 01-25-2025 1 each by In Vit ro route Daily Use to check FSBS four times daily [id number] Start: 12-26-2024 End: 01-25-2025 Clinical Notes 07-28-2021 to 05-08-2025 ROB Rosenbaum - 05/08/2025 11:20 AM Eric Traore LPN - 05/01/2025 9:10 AM ROB العلي - 04/19/2025 8:30 AM EDTKamila Crooks NP - 03/21/2025 8:30 AM EDT Note Date & Type Note Facility 05-08-2025 History of Presen t illness Narrative Reason for Appointment: Patient ID: Rosanne Belcher is a 24 y.o. female who presents for Routine Visit Patient presents today for Return OB appointment. MEDICATIONS Current Outpatient Medications Medication Instructions Alcohol Swabs (Alcohol Prep Pad) 70 % pads 1 Pad, Topical, Daily, Use four times daily to check FSBS. Blood Glucose Monitoring Suppl (FastSpring-GrubHub Glucometer) w/Device kit 1 kit, Does not [...] nursing note reviewed. Exam conducted with a crane follower present. Vitals: Estimated body mass index is 41.88 kg/m as calculated from the following: Height as of this encounter: 5' 2 . Weight as of this encounter: 229 lb. BP: 130/90 Patient's last menstrual period was 08/17/2024. ASSESSMENT & PLAN ICD-10-CM 1. Third trimester ([facility]) Z34.93 POCT urinalysis dipstick manually resulted 2. 37 weeks gestation of ([facility]) Z3A.37 Return OB: Patient presents today for [...] of: ROB Rosenbaum documented in this encounter [facility] 05-01-2025 History of Presen t illness Narrative Reason for Appointment: Patient ID: Rosanne Belcher is a 24 y.o. female who presents for No chief complaint on file. Patient presents today for Return OB appointment. MEDICATIONS Current Outpatient Medications Medication Instructions Alcohol Swabs (Alcohol Prep Pad) 70 % pads 1 Pad, Topical, Daily, Use four times daily to check FSBS. Blood Glucose Monitoring Suppl (D-Care Glucometer) w/Device kit 1 kit, Does not [...] nursing note reviewed. Exam conducted with a crane follower present. Vitals: There is no height or weight on file to calculate BMI. BP: 130/82 Patient's last menstrual period was 08/17/2024. ASSESSMENT & PLAN ICD-10-CM 1. 36 weeks gestation of ([facility]) Z3A.36 POCT urinalysis dipstick manually resulted 2. Third trimester ([facility]) Z34.93 POCT urinalysis dipstick manually resulted CULTURE, [...] for routine OB appointment Documented by Tram Traore LPN on behalf of: Andres Howell DO documented in this encounter [facility] 04-19-2025 History of Presen t illness Narrative Reason for Appointment: Patient ID: Rosanne Belcher is a 24 y.o. female who presents for Routine Visit Patient presents today for Return OB appointment. MEDICATIONS Current Outpatient Medications Medication Instructions Alcohol Swabs (Alcohol Prep Pad) 70 % pads 1 Pad, Topical, Daily, Use four times daily to check FSBS. Blood Glucose Monitoring Suppl (D-GrubHub Glucometer) w/Device kit 1 kit, Does not [...] PLAN ICD-10-CM 1. 34 weeks gestation of ([facility]) Z3A.34 POCT urinalysis dipstick manually resulted 2. Third trimester ([facility]) Z34.93 POCT urinalysis dipstick manually resulted Return [...] of: ROB Rosenbaum documented in this encounter [facility] 03-21-2025 History of Presen t illness Narrative Reason for Appointment: Patient ID: Rosanne Belcher is a 24 y.o. female who presents for Routine Visit Patient presents today for Return OB appointment. MEDICATIONS Current Outpatient Medications Medication Instructions Alcohol Swabs (Alcohol Prep Pad) 70 % pads 1 Pad, Topical, Daily, Use four times daily to check FSBS. Blood Glucose Monitoring Suppl (D-Care Glucometer) w/Device kit 1 kit, Does not [...] nursing note reviewed. Exam conducted with a crane follower present. Vitals: There is no height or weight on file to calculate BMI. BP: Patient's last menstrual period was 08/17/2024. ASSESSMENT & PLAN ICD-10-CM 1. Third trimester ([facility]) Z34.93 POCT urinalysis dipstick manually resulted 2. 30 weeks gestation of ([facility]) Z3A.30 Return OB: Patient presents today for [...] repeat ultrasound in 4 weeks. Documented by Kamila Crooks NP on behalf of: Kamila Crooks NP documented in this encounter [facility] 03-07-2025 History of Presen t illness Narrative Reason for Appointment: Patient ID: Rosanne Belcher is a 24 y.o. female who presents for Routine Visit Patient presents today for Return OB appointment. MEDICATIONS Current Outpatient Medications Medication Instructions Alcohol Swabs (Alcohol Prep Pad) 70 % pads 1 Pad, Topical, Daily, Use four times daily to check FSBS. Blood Glucose Monitoring Suppl (FastSpring-GrubHub Glucometer) w/Device kit 1 kit, Does not [...] nursing note reviewed. Exam conducted with a crane follower present. Vitals: There is no height or weight on file to calculate BMI. BP: 120/70 Patient's last menstrual period was 08/17/2024. ASSESSMENT & PLAN ICD-10-CM 1. 28 weeks gestation of Z3A.28 POCT urinalysis dipstick manually resulted 2. Third trimester Z34.93 POCT urinalysis dipstick manually resulted Return OB: Patient presents today for a routine obstetrics appointment. Patient is currently 28w1d . Patient states she is doing well but has complaints of being tired due to current . Patient has verbalizes frequent movement. labor precautions was discussed/given and patient was instructed to perform kick counts three times a day. Orders Placed This Encounter Procedures US OB follow up transabdominal approach POCT urinalysis dipstick manually resulted Follow Up: Patient is to return to office in 2 week for routine OB appointment. Documented by ROB Rosenbaum on behalf of: Andres Howell DO documented in this encounter [facility] 02-21-2025 History of Presen t illness Narrative Reason for Appointment: Patient ID: Rosanne Belcher is a 24 y.o. female who presents for Routine Visit Patient presents today for Return OB appointment. MEDICATIONS Current Outpatient Medications Medication Instructions Alcohol Swabs (Alcohol Prep Pad) 70 % pads 1 Pad, Topical, Daily, Use four times daily to check FSBS. Blood Glucose Monitoring Suppl (D-Care Glucometer) w/Device kit 1 kit, Does not [...] nursing note reviewed. Exam conducted with a crane follower present. Vitals: There is no height or [...] for routine OB appointment. Documented by Tram Traore LPN on behalf of: Sera Mckeon PA-C documented in this encounter [facility] 01-23-2025 History of Presen t illness Narrative Reason for Appointment: Patient ID: Rosanne Belcher is a 24 y.o. female who presents for Routine Visit Patient is 22w0d with a Estimated Date of Delivery: 05/29/25 [...] CS-Classical Gen, EPI N IZZY Current Medications: has a current medication list which includes the following prescription(s): alcohol prep pad, d-care glucometer, blood glucose test, and lancets ultra thin. Medical History: Active Ambulatory Problems Diagnosis Date Noted No Active Ambulatory Problems Resolved Ambulatory Problems Diagnosis Date Noted No Resolved Ambulatory Problems No Additional Past Medical History No family history on file. Social History Tobacco Use Smoking status: Not on file Smokeless tobacco: Not on file Substance Use Topics Alcohol use: Not on file Drug use: Not on file Past Surgical History: Procedure Laterality Date SECTION, LOW TRANSVERSE SECTION, LOW TRANSVERSE Allergies Allergen Reactions Omnicef [Cefdinir] Other Suprex Vitals: There is no height or weight on file to calculate BMI. BP: 120/70 Patient's last menstrual period was 08/17/2024. Assessment/Plan Diagnoses and all orders for this visit: Second trimester - POCT urinalysis dipstick manually resulted 22 weeks gestation of - POCT urinalysis dipstick manually resulted Diabetes mellitus screening - CBC; Future Nurse Note: Patient was in office today for routine visit. Patient did have concerns on low Blood pressure and fatigue. Patient was advised diet changes can cause changes in blood pressure. Patient is taking Blood sugars four times a day and asking if she does need to complete 1 hour testing. Patient was advised per provider to continue taking blood sugars four times a day and log this for 2 weeks bring into office provider will re-evaluate and see if this needs to be completed again at 28 weeks. Patient voiced understanding and agreement in this. Patient states average blood sugar is at 102/103 at these times. Patient was given CBC to have completed. Follow Up: Patient to return to office in 4 weeks. Nurse Visit Completed by: Felisha Espinoza LPN documented in this encounter [facility] 12-26-2024 History of Presen t illness Narrative Reason for Appointment: Patient ID: Rosanne Belcher is a 24 y.o. female who presents for Routine Visit Patient presents today for STD Check. and Return OB appointment. MEDICATIONS No current outpatient [...] SYSTEMS Review of Systems: Review of Systems OBJECTIVE Objective: OBGyn Exam Vitals: There is no height or weight on file to calculate BMI. BP: 108/70 Patient's last menstrual period was 08/17/2024. ASSESSMENT & PLAN ICD-10-CM 1. Second trimester Z34.92 Alpha fetoprotein, maternal Alpha fetoprotein, maternal 2. 18 weeks gestation of Z3A.18 POCT urinalysis dipstick manually resulted 3. Vaginal discharge N89.8 SURESWAB(R) ADVANCED VAGINITIS PLUS, TMA CHLAMYDIA TRACHOMATIS (GENITO/STI) Neisseria gonorrhea DNA probe, direct 4. STD exposure Z20.2 SURESWAB(R) ADVANCED VAGINITIS PLUS, TMA CHLAMYDIA TRACHOMATIS (GENITO/STI) Neisseria gonorrhea DNA probe, direct 5. Well woman exam with routine gynecological exam Z01.419 CANCELED: Pap Smear Return OB/Annual Exam: Patient presents today for a /routine obstetrics appointment. Patient is currently 18w0d . Patient states she is doing well but has complaints of nausea in the morning. Cultures was obtained without difficulty and patient was given orders for anatomy scan and msAFP to be obtained. Pt to start checking sugars daily. Pt given tsh and free t4 labs obtained. Orders Placed This Encounter Procedures US OB 14+ weeks anatomy scan CHLAMYDIA TRACHOMATIS (GENITO/STI) Neisseria gonorrhea DNA probe, direct Alpha fetoprotein, maternal TSH T4, free POCT urinalysis dipstick manually resulted Follow Up: Patient is to schedule annual exam for next year and return to office in 4 weeks for OB appointment. Documented by Tram Traore LPN on behalf of: Andres Howell DO documented in this encounter [facility] 11-27-2024 History of Presen t illness Narrative [...] nursing note reviewed. Exam conducted with a crane follower present. Vitals: There is no height or [...] Andres Howell DO documented in this encounter [facility] 10-26-2024 History of Presen t illness Narrative [...] or undercooked meat, and stay away from [facility]. Patient has also been advised to not [...] Mervat Carrera MA documented in this encounter [facility] 07-28-2021 Note DISCHARGE SUMMARY Discharge Date: 07-30-21 [...] Tylenol, any abdominal pain unrelieved with narcotics. [facility] Signed and Approved by: DR ANDRES HOWELL . 08/05/2021 16:10:00 [facility] 07-28-2021 Note OPERATIVE NOTE OPERATION DATE: 07-28-21 ANESTHETIC:Spinal with Duramorph. EXPLOITATION ANALYST:ADRIANA Rodriguez PREOPERATIVE DIAGNOSIS: 1. Intrauterine at 39 [...] to the Recovery Room in stable condition. [facility] Signed and Approved by: DR ANDRES HOWELL . 07/28/2021 18:54:00 [facility] Evaluation note Diagnosis Missed menses , unspecified gestational age Encounter for supervision of normal first in first trimester documented in this encounter [facility] HealthcareEvaluation note* Diagnosis 13 weeks gestation of Second trimester state, incidental documented in this encounter [facility] HealthcareEvaluation note* Diagnosis Second trimester state, incidental 18 weeks gestation of Vaginal discharge Leukorrhea, not specified as infective STD exposure Well woman exam with routine gynecological exam Routine gynecological examination Gestational diabetes mellitus (GDM), antepartum, gestational diabetes method of control unspecified Elevated glucose tolerance test Impaired glucose tolerance test Screening, , for anatomic survey Encounter for anatomic survey Thyroid disorder screening Screening for thyroid disorder documented in this encounter [facility] HealthcareEvaluation note* Diagnosis Second trimester state, incidental 22 weeks gestation of Diabetes mellitus screening Screening for diabetes mellitus [facility] Diagnosis Second trimester state, incidental 26 weeks gestation of Diabetes mellitus screening Screening for diabetes mellitus documented [facility] this [facility]* Diagnosis size inconsistent with dates- Primary 28 weeks gestation of Third trimester state, incidental documented [facility]* Diagnosis Size of fetus inconsistent with dates in third trimester (HHS-HCC)- Primary Third trimester (HHS-HCC) state, incidental 30 weeks gestation of (HHS-HCC) [facility]* Diagnosis 34 weeks gestation of (HHS-HCC) Third trimester (HHS-HCC) state, incidental documented [facility]* Diagnosis 36 weeks gestation of (HHS-HCC) Third trimester (HHS-HCC) state, incidental H/O section documented [facility] this [facility]* Diagnosis Third trimester (HHS-HCC) state, incidental 37 weeks gestation of (HHS-HCC) induced hypertension, antepartum (HHS-HCC) Transient hypertension of , antepartum documented in this encounter [facility] Summary Purpose Family History No Family History Records FoundNo Family History Records Found Advance Directives No Advanced Directives Records FoundNo Advanced Directives Records Found Additional Source Comments INFORMATION SOURCE (unrecogn ized section and content) DATE CREATED AUTHOR 01/01/2022 [facility] DATE CREATED AUTHOR AUTHOR'S ORGANIZ ATION 05/03/2025 [facility] EPIC Reason for Visit (unrecogniz ed section and content) Reason Comments Amenorrhea Reason Comments Routine Visit Care Teams (unrecognized sec tion and content) Cash Sales Audit Clerk Relationship Specialty Start Date End Date Shilpi Blanton MD [address] [place] [address] PCP - General Family Medicine 10/26/24 Cash Sales Audit Clerk Relationship Specialty Start Date End Date Shilpi Blanton MD [address] [place] [address] PCP - General Family Medicine 10/26/24 Cash Sales Audit Clerk Relationship Specialty Start Date End Date Shilpi Blanton MD [address] [place] [address] PCP - General Family Medicine 10/26/24 Cash Sales Audit Clerk Relationship Specialty Start Date End Date Shilpi Blanton MD [address] [place] [address] PCP - General Family Medicine 10/26/24 Cash Sales Audit Clerk Relationship Specialty Start Date End Date Shilpi Blanton MD [address] [place] [address] PCP - General Family Medicine 10/26/24 Cash Sales Audit Clerk Relationship Specialty Start Date End Date Shilpi Blanton MD PCP - General Family Medicine 10/26/24 Cash Sales Audit Clerk Relationship Specialty Start Date End Date Shilpi Blanton MD PCP - General Family Medicine 10/26/24 Cash Sales Audit Clerk Relationship Specialty Start Date End Date Shilpi Blanton MD PCP - General Family Medicine 10/26/24 Cash Sales Audit Clerk Relationship Specialty Start Date End Date Shilpi Blanton MD PCP - General Family Medicine 10/26/24 Cash Sales Audit Clerk Relationship Specialty Start Date End Date Shilpi Blanton MD [address] [place] [address] PCP - General Family Medicine 10/26/24 Cash Sales Audit Clerk Relationship Specialty Start Date End Date Shilpi Blanton MD [address] [place] [place] [phone] PCP - General Family Medicine 10/26/24 Cash Sales Audit Clerk Relationship Specialty Start Date End Date Shilpi Blanton MD [address] [place] [phone] PCP - General Family Medicine 10/26/24 Cash Sales Audit Clerk Relationship Specialty Start Date End Date Shilpi Blanton MD [address] [place] [address] PCP - [facility] 10/26/24 Cash Sales Audit Clerk Relationship Specialty Start Date End Date Shilpi Blanton MD [address] [place] [address] PCP - [facility] 10/26/24 Cash Sales Audit Clerk Relationship Specialty Start Date End Date Shilpi Blanton MD [address] [place] [address] PCP - General Family [facility] 10/26/24 FOR RECORDS PERTAINING TO PATIENTS WHO [...] BE BASED ON THE PRIMARY CLINICAL RECORDS. [facility] [employer] [facility]. provides no warranty or guarantee of the accuracy or completeness of information in this document.
[2025-05-09 16:27] VITALS: BP 137/75; PULSE 91
== END 2025-05-09 17:01 | disposition home or self-care (01) ==
LOC: US 15:34 → FBC 15:54
PROVIDERS: PCP Family Medicine; Visit Provider Physician Assistant
DX: O13.3 Gestational [pregnancy-induced] hypertension without significant proteinuria, third trimester (principal); Z3A.37 37 weeks gestation of pregnancy
CPT/HCPCS: 36415; 76818; 82565; 83615; 84450; 84520; 84550; 85025; 85610; 85730

== ENCOUNTER 2025-05-11 08:34 | Outpatient (REF) | payer MEDICAID, SELFPAY ==
--- OUTSIDE RECORDS SUMMARY | 2025-05-01 09:10 | XMS_ITS | Encounter Summary ---
Author Organization [facility] Address [address] [place] [address] Care Team Providers Care Sheepskin Pickler Name Role Phone Shilpi Alegria MD Primary Care Provider [phone] Encounter Details Date Type Department Care Team (Late st Contact Info) Description 05/01/2025 9:10 AM EDT Routine [facility] [address] [facility] [place] [phone] Jim Howell DO [address] [facility] [address] Devin [place], [facility]11 36 weeks gestation of ([facility]); Third trimester ([facility]); H/O section Social History Tobacco Use Types [...] to check FSBS. Blood Glucose Monitoring Suppl ([employer] Glucometer) w/Device kit 1 kit, Does not [...] nursing note reviewed. Exam conducted with a fermenter present. Vitals: There is no height or weight on file to calculate BMI. BP: 130/82 Patient's last menstrual period was 08/17/2024. ASSESSMENT & PLAN ICD-10-CM 1. 36 weeks gestation of ([facility]) Z3A.36 POCT urinalysis dipstick manually resulted 2. Third trimester ([facility]) Z34.93 POCT urinalysis dipstick manually resulted CULTURE, [...] AM EDT Routine [facility] [address] [facility] [place] [place] [phone] Jim Howell DO [address] [place] [address] 05/17/2025 8:00 AM EDT Ancillary Procedure [facility] [address] [place] [address] documented as of this encounter Procedures Procedure Name Priority Date/Time Associated Diagnosis Comments CULTURE, GROUP B STREP WITH SUSCEPTIBLITY Routine 05/01/2025 10:00 AM EDT Third trimester ([facility]) POCT URINALYSIS DIPSTICK Routine 05/01/2025 9:26 AM EDT 36 weeks gestation of ([facility]) Third trimester ([facility]) documented in this encounter Results * CULTURE, [...] Visit Diagnoses Diagnosis 36 weeks gestation of ([facility]) Third trimester ([facility]) state, incidental H/O section documented in this encounter Care Teams Sheepskin Pickler Relationship Specialty Start Date End Date Shilpi Alegria MD [address] [place] [address] PCP - General Family Medicine 10/26/24 documented as of this encounter
--- OUTSIDE RECORDS SUMMARY | 2025-05-08 11:20 | XMS_ITS | Encounter Summary ---
Author Organization [facility] Address [address] [place] [address] Care Team Providers Care Buying Agent Name Role Phone Shilpi Alegria MD Primary Care Provider [phone] Reason for Visit * Reason Comments Routine Visit Encounter Details Date Type Department Care Team (Late st Contact Info) Description 05/08/2025 11:20 AM EDT Routine ANA [place] [facility] [address] [facility] [place] [address] Sera Osborne PA [address] [facility] [place] [address] Third trimester ([facility]); 37 weeks gestation of ([facility]); induced hypertension, antepartum ([facility]) Social History Tobacco Use Types Packs/Day Years [...] to check FSBS. Blood Glucose Monitoring Suppl (D-[employer] Glucometer) w/Device kit 1 kit, Does not [...] nursing note reviewed. Exam conducted with a wafer slicer present. Vitals: Estimated body mass index is 41.88 kg/m?? as calculated from the following: Height as of this encounter: 5' 2 . Weight as of this encounter: 229 lb. BP: 130/90 Patient's last menstrual period was 08/17/2024. ASSESSMENT & PLAN ICD-10-CM 1. Third trimester ([facility]) Z34.93 POCT urinalysis dipstick manually resulted 2. 37 weeks gestation of ([facility]) Z3A.37 Return OB: Patient presents today for [...] headaches. Suggested for patient to go to [facility] for PIH evaluation. Pt states she does [...] Routine [facility] St[facility] R[facility]LED[facility] [address] [place] [address] Jim Howell DO [address] [place], [place] [id number] 05/17/2025 8:00 AM EDT Ancillary Procedure [facility] R[facility]LEDGE [address] [place] [address] Scheduled Orders Name Type Priority Associated [...] antepartum documented in this encounter Care Teams Buying Agent Relationship Specialty Start Date End Date Shilpi Alegria MD [address] [place] [address] PCP - General Family Medicine 10/26/24 documented as of this encounter
--- OUTSIDE RECORDS SUMMARY | 2025-05-11 08:37 | XMS_ITS | Encounter Summary ---
Author Organization [facility] Address [address] [place] [address] Care Team Providers Care Baggageman Name Role Phone Shilpi Alegria MD Primary Care Provider [phone] Encounter Details Date Type Department Care Team (Late Contact Info) Description 11/24/2024 Abstract ANA RUTLEDGE [facility] [place] [address] Jim Howell DO [address], [place] [address] Social History Tobacco Use Types Packs/Day Years [...] 05/14/2025 8:30 AM EDT Routine ANA RUTLEDGE [facility] [place] [address] Jim Howell DO [address], [facility]11 05/17/2025 8:00 AM EDT Ancillary Procedure ANA RUTLEDGE [facility] [place] [address] documented as of this encounter Visit Diagnoses Not on filedocumented in this encounter Care Teams Baggageman Relationship Specialty Start Date End Date Shilpi Alegria MD [address] [place] [phone] PCP - General Family Medicine 10/26/24 documented as of this encounter
--- OUTSIDE RECORDS SUMMARY | 2025-05-11 08:37 | XMS_ITS | Encounter Summary ---
Author Organization [facility] Address [address] [place] [address] Care Team Providers Care Dive Superintendent Name Role Phone Shilpi Alegria MD Primary Care Provider [phone] Encounter Details Date Type Department Care Team (Late Contact Info) Description 11/20/2024 Abstract ANA RUTLEDGE [facility] [place] [address] Jim Howell DO [address], [place] [address] Social History Tobacco Use Types Packs/Day Years [...] 05/14/2025 8:30 AM EDT Routine ANA RUTLEDGE [facility] [place] [address] Jim Howell DO [address], [facility]11 05/17/2025 8:00 AM EDT Ancillary Procedure ANA RUTLEDGE [facility] [place] [address] documented as of this encounter Visit Diagnoses Not on filedocumented in this encounter Care Teams Dive Superintendent Relationship Specialty Start Date End Date Shilpi Alegria MD [address] [place] [phone] PCP - General Family Medicine 10/26/24 documented as of this encounter
--- OUTSIDE RECORDS SUMMARY | 2025-05-11 08:37 | XMS_ITS | Encounter Summary ---
Author Organization [facility] Address [address] [place] [address] Care Team Providers Care Metal Tank Erector Name Role Phone Shilpi Alegria MD Primary Care Provider [phone] Encounter Details Date Type Department Care Team (Late Contact Info) Description 05/08/2025 Bamboo flowsheet ANA RUTLEDGE [address] [place] [address] [place] [address] Sera Osborne PA [address] [facility] [address], [place] [address] Social History Tobacco Use Types Packs/Day Years [...] 05/14/2025 8:30 AM EDT Routine ANA RUTLEDGE [address] [place] [address] [place] [address] Jim Howell DO [address] [facility] [address] [place], [facility]11 05/17/2025 8:00 AM EDT Ancillary Procedure NOMMalika RUTLEDGE [address] [place] [address] [place] [address] documented as of this encounter Visit Diagnoses Not on filedocumented in this encounter Care Teams Metal Tank Erector Relationship Specialty Start Date End Date Shilpi Alegria MD [address] [place] [phone] PCP - General Family Medicine 10/26/24 documented as of this encounter
--- OUTSIDE RECORDS SUMMARY | 2025-05-11 08:37 | XMS_ITS | Encounter Summary ---
Author Organization [facility] Address [address] [place] [address] Care Team Providers Care Payroll Coordinator Name Role Phone Shilpi Alegria MD Primary Care Provider [phone] Encounter Details Date Type Department Care Team [...] Routine NOMMalika RUTLEDGE [address] [place] [phone] Jim Howell DO [address] [place] [address] 05/17/2025 8:00 AM EDT Ancillary Procedure [facility]N [address] [facility] [place] [address] documented as of this encounter Visit Diagnoses Not on filedocumented in this encounter Care Teams Payroll Coordinator Relationship Specialty Start Date End Date Shilpi Alegria MD [address] [place] [phone] PCP - General Family Medicine 10/26/24 documented as of this encounter
--- OUTSIDE RECORDS SUMMARY | 2025-05-11 08:37 | XMS_ITS | Encounter Summary ---
Author Organization [facility] Address [address] [place] [address] Care Team Providers Care Natural Gas Treating Unit Operator Name Role Phone Shilpi Alegria MD Primary Care Provider [phone] Encounter Details Date Type Department Care Team (Late Contact Info) Description 02/23/2025 Abstract ANA RUTLEDGE [facility] [address] Jim Howell DO [address], [place] [address] Social History Tobacco Use Types Packs/Day Years [...] 05/14/2025 8:30 AM EDT Routine ANA RUTLEDGE [facility] [address] Jim Howell DO [address], [facility]11 05/17/2025 8:00 AM EDT Ancillary Procedure ANA RUTLEDGE [facility] [address] documented as of this encounter Visit Diagnoses Not on filedocumented in this encounter Care Teams Natural Gas Treating Unit Operator Relationship Specialty Start Date End Date Shilpi Alegria MD [address] [place] [phone] PCP - General Family Medicine 10/26/24 documented as of this encounter
--- OUTSIDE RECORDS SUMMARY | 2025-05-11 08:37 | XMS_ITS | Encounter Summary ---
Author Organization [facility] Address [address] [place] [address] Care Team Providers Care Insurance Sales Assistant Name Role Phone Shilpi Alegria MD Primary Care Provider Encounter Details Date Type Department Care Team (Late st Contact Info) Description 05/09/2025 Clinisync Result Encounter [facility] External Department Unsolicited Sera Osborne PA [address] [facility] [address], [facility]11 Social History Tobacco Use Types Packs/Day Years [...] 8:30 AM EDT Routine NOMMalika RUTLEDGE [address] [place] [address] Jim Howell DO [address] [facility] [place] [address] 05/17/2025 8:00 AM EDT Ancillary Procedure NOMMalika RUTLEDGE [address] [place] [address] documented as of this encounter Procedures Procedure Name Priority Date/Time Associated Diagnosis Comments TBH CREATININE Routine 05/09/2025 3:50 PM EDT SRMCOH PROTHROMBIN TIME INR W/O COUM Routine 05/09/2025 3:50 PM EDT [facility] AST Routine 05/09/2025 3:50 PM EDT [facility] APTT Routine 05/09/2025 3:50 PM EDT ALL URIC ACID Routine 05/09/2025 3:50 PM EDT ALL LDH Routine 05/09/2025 3:50 PM EDT ALL CBC WITH AUTO DIFF Routine 05/09/2025 3:50 PM EDT ALL BUN Routine 05/09/2025 3:50 PM EDT documented in this encounter Results * ALL LDH (05/09/2025 3:50 PM EDT) LACTATE DEHYDROGENASE 192 81 - 234 U/L TB 05/09/2025 3:50 PM EDT 05/09/2025 3:50 PM EDT Narrative CLINISYNC - 05/09/2025 4:21 PM EDT Sera ADAMSISYSTEVAN Final Result Performing Organization Address [facility] Co de Phone Number CLINISYNC TB * [facility] AST (05/09/2025 3:50 PM EDT) ASPARTATE AMINO TRANSFERASE 18 15 - 37 U/L TB 05/09/2025 3:50 PM EDT 05/09/2025 3:50 PM EDT Narrative CLINISYNC - 05/09/2025 4:21 PM EDT Sera ADAMSISYSTEVAN Final Result Performing Organization Address City/[facility]/ZIP Co de Phone Number CLINISYNC TB * ALL URIC ACID (05/09/2025 3:50 PM EDT) URIC ACID 4.5 2.6 - 6.0 mg/dL TB 05/09/2025 3:50 PM EDT 05/09/2025 3:50 PM EDT Narrative CLINISYNC - 05/09/2025 4:21 PM EDT us Sera COCHRAN Final Result Performing Organization Address [facility] de Phone Number CLINISYNC TB * (ABNORMAL) TB CREATININE (05/09/2025 3:50 PM EDT) CREATININE 0.52(L) 0.55 - 1.02 mg/dL TB TB EGFR-AF [place] >60 >=60 mL/min/1.7 3m 2 TBH TBH EGFR-NON AF [place] >60 >=60 mL/min/1.7 3m 2 TB 05/09/2025 3:50 PM EDT 05/09/2025 3:50 PM EDT Narrative CLINISYNC - 05/09/2025 4:21 PM EDT us Sera COCHRAN Final Result Performing Organization Address [facility] de Phone Number CLINISYNC TB * ALL BUN (05/09/2025 3:50 PM EDT) BLOOD UREA NITROGEN 10.0 7.0 - 18.0 mg/dL TB 05/09/2025 3:50 PM EDT 05/09/2025 3:50 PM EDT Narrative CLINISYNC - 05/09/2025 4:21 PM EDT Sera COCHRAN Final Result Performing Organization Address [facility] de Phone Number CLINISYNC TB * [facility] APTT (05/09/2025 3:50 PM EDT) PARTIAL THROMBOPLASTIN TIME 25.7 22.3 - 36.2 sec TB 05/09/2025 3:50 PM EDT 05/09/2025 3:50 PM EDT Narrative CLINISYNC - 05/09/2025 4:14 PM EDT Sera COCHRAN Final Result Performing Organization Address [facility]/ZIP Co de Phone Number DIMAS TB * [facility]MCOH PROTHROMBIN TIME INR W/O COUM (05/09/2025 3:50 PM EDT) Pathologist [facility] PROTHROMBIN TIME 9.7 9.0 - 11.6 sec TB TB INR <0.93 TBH Comment: DESIRED INR: 2.0-3.0 CONDITIONS NOT LISTED BELOW 2.5-3.5 FOR PROSTHETIC HEART VALVE REPLACEMENT 2.5-3.5 RECURRENT THROMBOSIS 05/09/2025 3:50 PM EDT 05/09/2025 3:50 PM EDT Narrative CLINISYNC - 05/09/2025 4:14 PM EDT Sera COCHRAN Final Result Performing Organization Address [facility] Co de Phone Number DIMAS TB * (ABNORMAL) ALL CBC WITH AUTO DIFF (05/09/2025 3:50 PM EDT) Pathologist [facility] TBH WBC 8.1 4.0 - 11.0 10 3/uL TBH TBH RBC 4.13(L) 4.20 - 5.40 10 6/uL TBH TBH HGB 10.1(L) 12.0 - 16.0 g/dL TBH TB HCT 31.3(L) 36.0 - 48.0 % TBH TBH MCV 75.8(L) 81.0 - 99.0 fL TBH TBH MCH 24.5(L) 26.7 - 34.0 pg TBH TBH MCHC 32.3 29.9 - 35.2 g/dL TBH TB RDW 13.9 11.0 - 15.0 % TBH TBH PLT 264 150 - 450 10 3/uL TBH TBH MPV 10.3 9.5 - 13.5 fL TBH NEUTROPHILS PERCENT AUTO 71.1 43.0 - 75.0 % TBH LYMPHOCYTES PERCENT AUTO 19.5(L) 20.5 - 60.0 % TBH MONOCYTES PERCENT AUTO 8.3 1.7 - 12.0 % TBH TBH EO % 0.9 0.9 - 7.0 % TBH BASOPHILS PERCENT AUTO 0.1(L) 0.2 - 2.0 % TBH IMMATURE GRANULOCYTES PCT AUTO 0.1 0.0 - 0.5 % TBH NEUTROPHILS ABSOLUTE AUTO 5.8 1.4 - 6.5 10 3/uL TBH LYMPHOCYTES ABSOLUTE AUTO 1.6 1.2 - 3.8 10 3/uL TBH MONOCYTES ABSOLUTE AUTO 0.7 0.3 - 0.8 10 3/uL TBH TBH EO # 0.1 0.0 - 0.7 10 3/uL TBH BASOPHILS ABSOLUTE AUTO 0.0 0.0 - 0.1 10 3/uL TBH IMMATURE GRANULOCYTES ABS AUTO 0.01 0.00 - 0.03 10 3/uL TBH 05/09/2025 3:50 PM EDT 05/09/2025 3:50 PM EDT Narrative CLINISYNC - 05/09/2025 4:02 PM EDT us Sera RIVAS [facility] documented in this encounter Visit Diagnoses Not on filedocumented in this encounter Care Teams Insurance Sales Assistant Relationship Specialty Start Date End Date Shilpi Alegria MD [address] [place] [phone] PCP - General Family Medicine 10/26/24 documented as of this encounter
--- OUTSIDE RECORDS SUMMARY | 2025-05-11 08:37 | XMS_ITS | Encounter Summary ---
Author Organization [facility] Address [address] [place] [address] Care Team Providers Care Seamer Name Role Phone Shilpi Alegria MD Primary Care Provider [phone] Encounter Details Date Type Department Care Team [...] Routine NOMMalika RUTLEDGE [address] [place] [phone] Jim Howell DO [address] [place] [address] 05/17/2025 8:00 AM EDT Ancillary Procedure [facility] Stacia [facility]AMGYN [address] [facility] [place] [address] documented as of this encounter Visit Diagnoses Not on filedocumented in this encounter Care Teams Seamer Relationship Specialty Start Date End Date Shilpi Alegria MD [address] [place] [phone] PCP - General Family Medicine 10/26/24 documented as of this encounter
--- OUTSIDE RECORDS SUMMARY | 2025-05-11 08:37 | XMS_ITS | Encounter Summary ---
Author Organization [facility] Address [address] [place] [address] Care Team Providers Care Custom Stock Maker Name Role Phone Shilpi Alegria MD Primary Care Provider [phone] Encounter Details Date Type Department Care Team (Late Contact Info) Description 11/17/2024 Abstract ANA RUTLEDGE [facility] [place] [address] Jim Howell DO [address], [place] [address] Social History Tobacco Use Types Packs/Day Years [...] 05/14/2025 8:30 AM EDT Routine ANA RUTLEDGE [facility] [place] [address] Jim Howell DO [address], [facility]11 05/17/2025 8:00 AM EDT Ancillary Procedure ANA RUTLEDGE [facility] [place] [address] documented as of this encounter Visit Diagnoses Not on filedocumented in this encounter Care Teams Custom Stock Maker Relationship Specialty Start Date End Date Shilpi Alegria MD [address] [place] [phone] PCP - General Family Medicine 10/26/24 documented as of this encounter
--- OUTSIDE RECORDS SUMMARY | 2025-05-11 08:37 | XMS_ITS | Encounter Summary ---
Author Organization [facility] Address [address] [place] [address] Care Team Providers Care Environmental Remediation Consultant Name Role Phone Shilpi Alegria MD Primary Care Provider [phone] Encounter Details Date Type Department Care Team (Late Contact Info) Description 05/01/2025 Bamboo flowsheet ANA RUTLEDGE [address] [place] [address] [place] [address] Jim Howell DO [facility] [address], [place] [address] Social History Tobacco Use Types Packs/Day Years [...] 05/14/2025 8:30 AM EDT Routine ANA RUTLEDGE [address] [place], [place] [address] [address] Jim Howell DO [address], [facility]11 05/17/2025 8:00 AM EDT Ancillary Procedure ANA RUTLEDGE [facility] [place] [address] documented as of this encounter Visit Diagnoses Not on filedocumented in this encounter Care Teams Environmental Remediation Consultant Relationship Specialty Start Date End Date Shilpi Alegria MD [address] [place] [address] PCP - General Family Medicine 10/26/24 documented as of this encounter
--- OUTSIDE RECORDS SUMMARY | 2025-05-11 08:37 | XMS_ITS | Clinical Summary ---
Author Organization [facility] Address [address] [place] [address] Phone Care Team Providers Care Finance Teacher Name Role Phone Jaxon Alvarenga MD Primary Care Provider Shalonda vailable Social History Tobacco Use Types Packs/Day Years Used Date Smoking Tobacco: Never Assessed Comments Unknown Sex and Gender Information Value Date Recorded Sex Assigned at Not on file Legal Sex Female 12:29 AM EST Gender Identity Not on file Sexual Orientation Not on file Plan of Treatment Not on file Care Teams Finance Teacher Relationship Specialty Start Date End Date Jaxon Alvarenga MD Retired From Practice Retired From Practice PCP - General 02/02/06
--- OUTSIDE RECORDS SUMMARY | 2025-05-11 08:38 | XMS_ITS | Encounter Summary ---
Author Organization [facility] Address [address] [place] [address] Care Team Providers Care Oracle Consultant Name Role Phone Shilpi Alegria MD Primary Care Provider [phone] Encounter Details Date Type Department Care Team (Late st Contact Info) Description 05/10/2025 Clinisync Result Encounter [facility] External Department Unsolicited Mauricio Mckeon PA [address] [place], [facility] Social History Tobacco Use Types Packs/Day Years [...] 8:30 AM EDT Routine [facility] [address] [place] [address] Jim Howell DO [address] [place] [address] 05/17/2025 8:00 AM EDT Ancillary Procedure [facility] Stacia [facility] [address] [place] [address] documented as of this encounter Procedures Procedure Name Priority Date/Time Associated Diagnosis Comments US OB BPP W NON-STRESS 05/10/2025 9:05 AM EDT documented in this encounter Results * US OB BPP W NON-STRESS (05/10/2025 9:05 AM EDT) Anatomical Region Laterality Modality Other 05/10/2025 9:05 AM EDT Narrative 05/10/2025 9:08 [place] [address] Ultrasound Report Signed Patient: ROSANNE CHOUDHARY MR#: [id number] : 2000 Acct:[id number] Age/Sex: 24 / F ADM Date: 05/09/25 Loc: US Attending Dr: Mauricio Mckeon Ordering Physician: Mauricio Mckeon Date of Service: 05/09/25 Procedure(s): US OB BPP w non-stress Accession Number(s): [id number] cc: Mauricio Mckeon; Shilpi Alegria M.D. The [place] [id number] Patient Name: ROSANNE CHOUDHARY MRN: [id number] date: 2000 Sex: F Assigned Patient Location: US Current Patient Location: Accession/Order Number: [id number] Exam Date: 05/10/2025 09:03 Report Date: 05/10/2025 09:05 At the request of: MAURICIO MCKEON Procedure: US OB BPP w non-stress Biophysical profile. Reason for exam: -induced hypertension COMPARISON: None TECHNIQUE: Transabdominal imaging of the gravid uterus was obtained. FINDINGS: The general intern reports a BPP of 8 out of 8. PARIS is normal at 15.5 cm. heart rate 136 bpm. Incidental note is made of right-sided pelviectasis. US/US OB BPP w non-stress IMPRESSION: BPP 8 out of 8. Right pelviectasis. Impression dictated by: Guanaco Davenport Jr., D.O. 05/10/2025 9:05 AM Dictation Location: [place] [address] Electronically authenticated by: [id number] Y Date: 05/10/2025 09:05 Dictated By: Guanaco Davenport M.D. Signed By: 05/10/2508 DD/ 4 TD/TT: Copyright Expert: Procedure Note Radiology, Radiologist, - 05/10/2025 [place] [address] Ultrasound Report Signed Patient: ROSANNE CHOUDHARY EMR#: [id number] : 2000Acct:[id number] Age/Sex: 24 / FADM Date: 05/09/25 Loc: US Attending Dr: Mauricio Mckeon Ordering Physician: Mauricio Mckeon Date of Service: 05/09/25 Procedure(s): US OB BPP w non-stress Accession Number(s): [id number] cc: Mauricio Mckeon; Shilpi Alegria M.D. The [place] [id number] Patient Name: ROSANNE CHOUDHARY MRN: [id number] date: 2000 Sex: F Assigned Patient Location: US Current Patient Location: Accession/Order Number: [id number] Exam Date: 05/10/2025 09:03 Report Date: 05/10/2025 09:05 At the request of: MAURICIO MCKEON Procedure: US OB BPP w non-stress Biophysical profile. Reason for exam: -induced hypertension COMPARISON: None TECHNIQUE: Transabdominal imaging of the gravid uterus was obtained. FINDINGS: The general intern reports a BPP of 8 out of 8. PARIS is normal at15.5 cm. heart rate 136 bpm. Incidental note is made of right-sided pelviectasis. US/US OB BPP w non-stress IMPRESSION: BPP 8 out of 8. Right pelviectasis. Impression dictated by: Guanaco Davenport Jr., D.O. 05/10/2025 9:05 AM Dictation Location: [place] [address] Electronically authenticated by: [id number] Y Date: 509:05 Dictated By: Guanaco Davenport M.D. Signed By:05/10/2508 DD/ 0905 TD/TT: Copyright Expert: us Mauricio [facility] Final Result documented in this encounter Visit Diagnoses Not on filedocumented in this encounter Care Teams Oracle Consultant Relationship Specialty [place] [address] [place] [phone] PCP - General Family Medicine 10/26/24 documented as of this encounter
--- OUTSIDE RECORDS SUMMARY | 2025-05-11 08:38 | XMS_ITS | Clinical Summary ---
Author Organization [facility] Address [address] [place] [address] Care Team Providers Care Cleaner Assistant Name Role Phone Shilpi Alegria MD Primary Care Provider [phone] Allergies Active Allergy Reactions Criticality Noted Date Comments Cefdinir 10/26/2024 Other 10/26/2024 Suprex Medications Alcohol Swabs (Alcohol Prep Pad) 70 % padsIndications: Gestational diabetes mellitus (GDM), antepartum, gestational diabetes method of control unspecified ([facility]),Elevat ed glucose tolerance test Apply 1 Pad topically Daily Use four times daily to check FSBS. 150 each 3 5 Active Blood Glucose Monitoring Suppl (D-Care Glucometer) w/Device kitIndications:G estational diabetes mellitus (GDM), antepartum, gestational diabetes method of control unspecified ([facility]),Elevat ed glucose tolerance test 1 kit Daily Use four times daily to check FSBS. In the morning prior to breakfast & 1 hour after each meal for a total of 4times daily. 1 kit 5 12/27/19 26 Active Encounters Date Type Department Care Team Description 05/10/2025 Clinisync Result Encounter [facility] External Department Unsolicited Sera Mckeon PA 05/09/2025 Clinisync Result Encounter [facility]OMS External Department Unsolicited Sera Mckeon PA 05/08/2025 11:20 AM EDT Routine [facility] Stacia [facility] [address] [place] [address] [place] [phone] Sera Mckeon PA Third trimester ([facility]); 37 weeks gestation of ([facility]); induced hypertension, antepartum ([facility]) 05/08/2025 Bamboo flowsheet [facility] [address] [facility] [place] [address] Sera Mckeon PA 05/07/2025 Travel 05/01/2025 9:10 AM EDT Routine [facility] Stacia LAMGYN [address] [facility] [place] [place] [address] Jim Howell DO 36 weeks gestation of ([facility]); Third trimester ([facility]); H/O section 05/01/2025 Bamboo flowsheet [facility] [address] [facility] [place] [place] [address] Jim Howell DO 04/30/2025 Travel 04/19/2025 8:30 AM EDT Routine [facility] Stacia [facility] K[address] [facility] [place] [address] Sera Mckeon PA 34 weeks gestation of ([facility]); Third trimester ([facility]) 04/19/2025 8:00 AM EDT Ancillary Procedure [facility] Stacia [facility] [address] [facility] [place] [address] Third trimester ([facility]); 30 weeks gestation of ([facility]); Elevated glucose tolerance test 04/18/2025 Travel 03/21/2025 8:30 AM EDT Routine [facility] Stacia Nina [facility] [place] [address] Kamila Crooks NP Third trimester ([facility]) (Primary Dx); 30 weeks gestation of ([facility]); Elevated glucose tolerance test 03/21/2025 Bamboo flowsheet [facility] Stacia [facility] [address] [facility] [place] [place] [address] Kamila Crooks NP 03/14/2025 Clinisync Result Encounter [facility] External Department Unsolicited Sera Mckeon PA 03/07/2025 3:20 PM EDT Routine [facility] Stacia [place] [address] Jim Howell, size inconsistent with dates ([facility]) (Primary Dx); 28 weeks gestation of ([facility]); Third trimester ([facility]) 03/07/2025 Clinisync Result Encounter [facility] External Department Unsolicited Jim Howell, DO 03/07/2025 Bamboo flowsheet [facility] Stacia Nina [facility] [place] [place] [address] Jim Howell, DO 03/06/2025 Travel 02/23/2025 Abstract [facility] Stacia [place] [address] Jim Howell, 02/21/2025 2:40 PM EDT Routine [facility] Stacia [place] [address] Jim Howell, Second trimester ([facility]); 26 weeks gestation of ([facility]); Diabetes mellitus screening 02/21/2025 Bamboo flowsheet [facility] Stacia Nina [facility] [place] [address] Jim Howell, 02/21/2025 Travel from Last 3 Months Social [...] AM EDT Routine [facility] [address] [place] [place] [address] Jim Howell, [address] [place], [place] [phone] 05/17/2025 8:00 AM EDT Ancillary Procedure [facility] [address] [facility] [place] [address] Procedures Procedure Name Priority Date/Time Associated Diagnosis Comments US OB BPP W NON-STRESS 05/10/2025 9:05 AM EDT ALL LDH Routine 05/09/2025 3:50 PM EDT [facility] AST Routine 05/09/2025 3:50 PM EDT ALL URIC ACID Routine 05/09/2025 3:50 PM EDT TBH CREATININE Routine 05/09/2025 3:50 PM EDT ALL BUN Routine 05/09/2025 3:50 PM EDT [facility] APTT Routine 05/09/2025 3:50 PM EDT [facility] PROTHROMBIN TIME INR W/O COUM Routine 05/09/2025 3:50 PM EDT ALL CBC WITH AUTO DIFF Routine 3:50 PM EDT POCT URINALYSIS DIPSTICK Routine 05/08/2025 12:02 PM EDT Third trimester ([facility]) CULTURE, GROUP B STREP WITH SUSCEPTIBLITY Routine 05/01/2025 10:00 AM EDT Third trimester ([facility]) POCT URINALYSIS DIPSTICK Routine 05/01/2025 9:26 AM [...] ([facility]) from Last 3 Months Results * US OB BPP W NON-STRESS (05/10/2025 9:05 AM EDT) Anatomical Region Laterality Modality Other 05/10/2025 9:05 AM EDT Narrative 05/10/2025 9:08 AM EDT The [address] [address] Ultrasound Report Signed Patient: ROSANNE CHOUDHARY MR#: [id number] : 2000 Acct:[id number] Age/Sex: 24 / F ADM Date: 05/09/25 Loc: US Attending Dr: Sera Mckeon Ordering Physician: Sera Mckeon Date of Service: 05/09/25 Procedure(s): US OB BPP w non-stress Accession Number(s): [id number] cc: Sera Mckeon; Shilpi Alegria M.D. The [address] [address] Patient Name: ROSANNE CHOUDHARY MRN: [facility]:[id number] date: 2000 Sex: F Assigned Patient Location: US Current Patient Location: Accession/Order Number: [id number] Exam Date: 05/10/2025 09:03 Report Date: 05/10/2025 09:05 At the request of: SERA MCKEON Procedure: US OB BPP w non-stress Biophysical profile. Reason for exam: -induced hypertension COMPARISON: None TECHNIQUE: Transabdominal imaging of the gravid uterus was obtained. FINDINGS: The home care giver reports a BPP of 8 out of 8. PARIS is normal at 15.5 cm. heart rate 136 bpm. Incidental note is made of right-sided pelviectasis. US/US OB BPP w non-stress IMPRESSION: BPP 8 out of 8. Right pelviectasis. Impression dictated by: Guanaco Davenport Jr., D.O. 05/10/2025 9:05 AM Dictation Location: [place] [address] Electronically authenticated by: [id number] Y Date: 05/10/2025 09:05 Dictated By: Guanaco Davenport M.D. Signed By: 05/10/2508 DD/ 4 TD/TT: Personal Chef: Procedure Note Radiology, Radiologist, MD - 05/10/2025 [place] [address] Ultrasound Report Signed Patient: ROSANNE CHOUDHARY EMR#: [id number] : 2000Acct:[id number] Age/Sex: 24 / FADM Date: 05/09/25 Loc: US Attending Dr: Sera Mckeon Ordering Physician: Sera Mckeon Date of Service: 05/09/25 Procedure(s): US OB BPP w non-stress Accession Number(s): [id number] cc: Sera Mckeon; Shilpi Alegria M.D. [address] [address] Patient Name: ROSANNE CHOUDHARY MRN: [id number]:[id number] date: 2000 Sex: F Assigned Patient Location: US Current Patient Location: Accession/Order Number: [id number] Exam Date: 05/10/2025 09:03 Report Date: 05/10/2025 09:05 At the request of: SERA MCKEON Procedure: US OB BPP w non-stress Biophysical profile. Reason for exam: -induced hypertension COMPARISON: None TECHNIQUE: Transabdominal imaging of the gravid uterus was obtained. FINDINGS: The home care giver reports a BPP of 8 out of 8. PARIS is normal at15.5 cm. heart rate 136 bpm. Incidental note is made of right-sided pelviectasis. US/US OB BPP w non-stress IMPRESSION: BPP 8 out of 8. Right pelviectasis. Impression dictated by: Guanaco Davenport Jr., D.OYudi 05/10/2025 9:05 AM Dictation Location: [place] [address] Electronically authenticated by: [id number] Y Date: 509:05 Dictated By: Guanaco Davenport M.D. Signed By:05/10/2508 DD/ 4 TD/TT: Personal Chef: Sera [facility] Final Result * (ABNORMAL) TBH CREATININE (05/09/2025 3:50 PM EDT) CREATININE 0.52(L) 0.55 - 1.02 mg/dL TBH TBH EGFR-AF CENTRAL AFRICAN >60 >=60 mL/min/1.7 3m 2 TBH TBH EGFR-NON AF CENTRAL AFRICAN >60 >=60 mL/min/1.7 3m 2 TBH 05/09/2025 3:50 PM EDT 05/09/2025 3:50 PM EDT Narrative CLINISYNC - 05/09/2025 4:21 PM EDT Sera Mckeon ROB DIMAS Final Result Performing Organization Address [facility] Phone Number DIMAS TB * [facility] PROTHROMBIN TIME INR W/O COUM (05/09/2025 3:50 PM EDT) PROTHROMBIN TIME 9.7 9.0 - 11.6 sec TB TB INR <0.93 TB Comment: DESIRED INR: 2.0-3.0 CONDITIONS NOT LISTED BELOW 2.5-3.5 FOR PROSTHETIC HEART VALVE REPLACEMENT 2.5-3.5 RECURRENT THROMBOSIS 05/09/2025 3:50 PM EDT 05/09/2025 3:50 PM EDT Narrative CLINISYNC - 05/09/2025 4:14 PM EDT Sera Togiak PA DIMAS Final Result Performing Organization Address [facility] de Phone Number DIMAS [facility] * [facility] AST (05/09/2025 3:50 PM EDT) ASPARTATE AMINO TRANSFERASE 18 15 - 37 U/L TB 05/09/2025 3:50 PM EDT 05/09/2025 3:50 PM EDT Narrative CLINISYNC - 05/09/2025 4:21 PM EDT Sera Mckeon ROB DIMAS Final Result Performing Organization Address [facility] de Phone Number DIMAS [facility] * [facility] APTT (05/09/2025 3:50 PM EDT) PARTIAL THROMBOPLASTIN TIME 25.7 22.3 - 36.2 sec TB 05/09/2025 3:50 PM EDT 05/09/2025 3:50 PM EDT Narrative CLINISYNC - 05/09/2025 4:14 PM EDT Sera Dylon PA CLINISYNC Final Result CLINISYNC TBH * ALL URIC ACID (05/09/2025 3:50 PM EDT) URIC ACID 4.5 2.6 - 6.0 mg/dL TBH 05/09/2025 3:50 PM EDT 05/09/2025 3:50 PM EDT Narrative CLINISYNC - 05/09/2025 4:21 PM EDT Sera RIVAS [facility] Final Result Performing Organization Address [facility] Co de Phone Number CLINISYNC TBH * ALL LDH (05/09/2025 3:50 PM EDT) LACTATE DEHYDROGENASE 192 81 - 234 U/L TB 05/09/2025 3:50 PM EDT 05/09/2025 3:50 PM EDT Narrative CLINISYNC - 05/09/2025 4:21 PM EDT Sera [facility]IVAS [facility] Final Result Performing Organization Address [facility] Co de Phone Number CLINISYNC TB * (ABNORMAL) ALL CBC WITH AUTO DIFF (05/09/2025 3:50 PM EDT) Only the most recent of2 resultswithin the time period is included. TBH WBC 8.1 4.0 - 11.0 10 3/uL TBH TBH RBC 4.13(L) 4.20 - 5.40 10 6/uL TBH TBH HGB 10.1(L) 12.0 - 16.0 g/dL TBH TBH HCT 31.3(L) 36.0 - 48.0 % TBH TBH MCV 75.8(L) 81.0 - 99.0 fL TBH TBH MCH 24.5(L) 26.7 - 34.0 pg TBH TBH MCHC 32.3 29.9 - 35.2 g/dL TBH TBH RDW 13.9 11.0 - 15.0 % TBH [...] EDT us Sera RIVAS [facility] Final Result [facility] * ALL BUN (05/09/2025 3:50 PM EDT) [facility] BLOOD UREA NITROGEN 10.0 7.0 - 18.0 mg/dL TBH 05/09/2025 3:50 PM EDT 05/09/2025 3:50 PM EDT Narrative CLINISYNC - 05/09/2025 4:21 PM EDT Sera RIVAS [facility] Final Result CLINISYNC TB * POCT urinalysis dipstick manually resulted (05/08/2025 [...] PM EDT Narrative 03/14/2025 3:44 PM EDT The [place] [id number] Ultrasound Report Signed Patient: ROSANNE CHOUDHARY MR#: [id number] : 2000 Acct:[id number] Age/Sex: 24 / F ADM Date: 03/14/25 Loc: US Attending Dr: Sera Mckeon Ordering Physician: Sera Mckeon Date of Service: 03/14/25 Procedure(s): US OB growth Accession Number(s): [id number] cc: Sera Mckeon; Shilpi Alegria M.D. The [place] [id number] Patient Name: ROSANNE CHOUDHARY MRN: [id number] date: 2000 Sex: F Assigned Patient Location: Current Patient Location: Accession/Order Number: [id number] Exam Date: 03/14/2025 15:38 Report Date: 03/14/2025 [...] Jr., D.O. 03/14/2025 3:41 PM Dictation Location: [place] [address] Electronically authenticated by: [id number] Y Date: 03/14/2025 15:41 Dictated By: Guanaco Davenport M.D. Signed By: 03/14/25 1544 DD/ 1541 TD/TT: Personal Chef: Procedure Note Radiology, Radiologist, - 03/14/2025 The [place] [id number] Ultrasound Report Signed Patient: ROSANNE CHOUDHARY EMR#: [id number] : 2000Acct:[id number] Age/Sex: 24 / FADM Date: 03/14/25 Loc: US Attending Dr: Sera Mckeon Ordering Physician: Sera Mckeon Date of Service: 03/14/25 Procedure(s): US OB growth Accession Number(s): [id number] cc: Sera Mckeon; Shilpi Alegria M.D. [address] [id number] Patient Name: ROSANNE CHOUDHARY MRN: [id number] date: 2000 Sex: F Assigned Patient Location: US Current Patient Location: US Accession/Order Number: [id number] Exam Date: 03/14/2025 15:38 Report Date: 03/14/2025 [...] day by anatomic measurements. Impression dictated by: Edmar Acosta Jr.OYudi 03/14/2025 3:41 PM Dictation Location: [place] [address] Electronically authenticated by: [id number] Y Date: 5:41 Dictated By: Guanaco Davenport M.D. Signed By:03/14/25 1544 DD/ 1541 TD/TT: Personal Chef: us Sera [facility] Final Result from Last 3 Months Care Teams Cleaner Assistant Relationship Specialty Start Date End Date Shilpi Alegria MD [facility] [place] [phone] PCP - General Family Medicine 10/26/24
--- OUTSIDE RECORDS SUMMARY | 2025-05-11 08:40 | XMS_ITS | CCD ---
Author Organization [facility] Care Team Providers Care Emblem Fuser Tender Name Role Phone DANTE, DR CAMPOS Admitting [...] Unavailable BLANTON, DR SHILPI Rios Admitting Unavailable WEBB, DR DARCY Mondragon Consulting Unavailable FRANNY, DR [...] Unavailable Franny GARRETT, Shilpi Primary Care Provider [phone] Franny GARRETT, Shilpi Primary Care Provider Franny GARRETT, Shilpi Primary Care Provider DANTE, ANDRES Attending Unavailable DANTE, ANDRES Attending Unavailable DANTE, ANDRES Referring Unavailable DATNE, ANDRES Attending Unavailable DANTE, ANDRES Attending Unavailable DANTE, ANDRES Attending Unavailable VALERIY, KAMILA Attending Unavailable VALERIY, KAMILA Referring Unavailable SERA MCKEON Attending Unavailable DANTE, ANDRES Attending Unavailable SERA MCKEON Attending Unavailable Allergies Allergy Classification Reported Allergen(s) Allergy Type Date of Onset Reaction(s) Facility (1 source) cefdinir Drug Allergy [facility] Repository (2 sources) Cephalosporins (Antibiotic) Drug allergy (disorder) [facility] Repository (1 source) Dextrothyroxine Drug Allergy [facility] Repository (20 sources) cefdinir Drug Allergy [facility] (20 sources) Other Propensity to adverse reactions 5 [facility] Medications Current Medications Medication Drug Class(es) Dates [...] End: 12-26-2025 Blood Glucose Monitoring Sup pl ([employer] Glucometer) w/Device kit Indications: Gestational diabetes mellitus [...] antepartum, gestational diabetes method of control unspecified ([facility]) , Elevated glucose tolerance test Apply 1 [...] Test Name Value Interpretation Reference Range Facility US OB BPP W NON-STRESS on 05-10-2025 The [place] [id number] Ultrasound Report Signed Patient: ROSANNE BELCHER MR#: [id number] : 2000 Acct:[id number] Age/Sex: 24 / F ADM Date: 05/09/25 Loc: US Attending Dr: Sera Mckeon Ordering Physician: Sera Mckeon Date of Service: 05/09/25 Procedure(s): US OB BPP w non-stress Accession Number(s): [id number] cc: Sera Mckeon; Shilpi Blanton M.D. The [address] [address] Patient Name: ROSANNE BELCHER MRN: [id number]:[id number] date: 2000 Sex: F Assigned Patient Location: US Current Patient Location: Accession/Order Number: [id number] Exam Date: 05/10/2025 09:03 Report Date: 05/10/2025 09:05 At the request of: SERA MCKEON Procedure: US OB BPP w non-stress Biophysical profile. Reason for exam: -induced hypertension COMPARISON: None TECHNIQUE: Transabdominal imaging of the gravid uterus was obtained. 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 [place] is normal at 15.5 cm. heart rate 136 bpm. Incidental note is made of right-sided pelviectasis. US/US OB BPP w non-stress IMPRESSION: BPP 8 out of 8. Right pelviectasis. Impression dictated by: Guanaco Davenport Jr., D.O. 05/10/2025 9:05 AM Dictation Location: [place] [address] Electronically authenticated by: [id number] Y Date: 05/10/2025 09:05 Dictated By: Guanaco Davenport M.D. Signed By: 05/10/2508 DD/ 4 TD/TT: Throat Cutter: [facility] Radiology, Radiologist, - 05/10/2025 The [place] [id number] Ultrasound Report Signed Patient: ROSANNE BELCHER MR#: [id number] : 2000 Acct:[id number] Age/Sex: 24 / F ADM Date: 05/09/25 Loc: US Attending Dr: Sera Mckeon Ordering Physician: Sera Mckeon Date of Service: 05/09/25 Procedure(s): US OB BPP w non-stress Accession Number(s): [id number] cc: Sera Mckeon; Shilpi Blanton M.D. The [address] [address] Patient Name: ROSANNE BELCHER MRN: [facility]:[id number] date: 2000 Sex: F Assigned Patient Location: US Current Patient Location: Accession/Order Number: [id number] Exam Date: 05/10/2025 09:03 Report Date: 05/10/2025 09:05 At the request of: SERA MCKEON Procedure: US OB BPP w non-stress Biophysical profile. Reason for exam: -induced hypertension COMPARISON: None TECHNIQUE: Transabdominal imaging of the gravid uterus was obtained. 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 [place] is normal at 15.5 cm. heart rate 136 bpm. Incidental note is made of right-sided pelviectasis. US/US OB BPP w non-stress IMPRESSION: BPP 8 out of 8. Right pelviectasis. Impression dictated by: Guanaco Davenport Jr., D.O. 05/10/2025 9:05 AM Dictation Location: [place] [address] Electronically authenticated by: [id number] Y Date: 05/10/2025 09:05 Dictated By: Guanaco Davenport M.D. Signed By: 05/10/2508 DD/ 4 TD/TT: Throat Cutter: [facility] Radiology Study observation (narrative) [facility] US OB BPP W NON-STRESS Ordered By: Radiologist Radiology on 05-10-2025 [facility] Work Phone: ALL CBC WITH AUTO DIFFon BASOPHILS ABSOLUTE AUTO 0 [facility] Basophils/100 WBC (Bld) 0.1 % Low 0.2 - 2.0 % [facility] Eosinophils/100 WBC (Bld) 0.9 % 0.9 - 7.0 % [facility] Erythrocyte distribution width (RBC) [Ratio] 13.9 % 11.0 - 15.0 % [facility] Hematocrit (Bld) [Volume fraction] 31.3 % Low 36.0 - 48.0 % [facility] Hemoglobin (Bld) [Mass/Vol] 10.1 g/dL Low 12.0 - 16.0 g/dL [facility] IMMATURE GRANULOCYTES ABS AUTO 0.01 [facility] Immature granulocytes/100 WBC (Bld) 0.1 % 0.0 - 0.5 % [facility] Interpretation and review of laboratory results Abnormal [facility] LYMPHOCYTES ABSOLUTE AUTO 1.6 [facility] Lymphocytes/100 WBC (Bld) 19.5 % Low 20.5 - 60.0 % [facility] MCH (RBC) [Entitic mass] 24.5 pg Low 26.7 - 34.0 pg [facility] MCHC (RBC) [Mass/Vol] 32.3 g/dL 29.9 - 35.2 g/dL [facility] MCV (RBC) [Entitic vol] 75.8 fL Low 81.0 - 99.0 fL [facility] MONOCYTES ABSOLUTE AUTO 0.7 [facility] Monocytes/100 WBC (Bld) 8.3 % 1.7 - 12.0 % [facility] NEUTROPHILS ABSOLUTE AUTO 5.8 [facility] Neutrophils/100 WBC (Bld) 71.1 % 43.0 - 75.0 % [facility] Platelet mean volume (Bld) [Entitic vol] 10.3 fL 9.5 - 13.5 fL [facility] TBH EO # 0.1 [facility] TB PLT 264 [facility] TB RBC 4.13 Low [facility] TB WBC 8.1 [facility] Urinalysis macro (dipstick) panel (U)on 05-08-2025 Bilirubin, UA Negative Negative - 4(70) +++ mg/dL [facility] Blood, UA Negative Negative - 50 Willard/mcL [facility] Clarity, UA Clear [facility] Color, UA Yellow [facility] Glucose, UA Negative Negative - 1999(110) ++++ mg/dL [facility] Interpretation and review of laboratory results Normal [facility] Ketones, UA Negative Negative - 160(16) ++++ mg/dL [facility] Leukocytes, UA Negative Negative - 500+++ Charlie/mcL [facility] Nitrite, UA Negative Negative - Positive [facility] pH, UA 6 5 - 9 [facility] Protein, UA Negative Negative - 2000(20) ++++ mg/dL [facility] Spec Grav, UA 1.02 1 - 1.03 [facility] Urobilinogen, UA 1.0 0.2 - 12 mg/dL [facility] Urinalysis macro (dipstick) panel (U)on 05-01-2025 Bilirubin, UA Negative Negative - 4(70) +++ mg/dL [facility] Blood, UA Negative Negative - 50 Willard/mcL [facility] Clarity, UA Clear [facility] Color, UA Yellow [facility] Glucose, UA Negative Negative - 1999(110) ++++ mg/dL [facility] Interpretation and review of laboratory results Normal [facility] Ketones, UA Negative Negative - 160(16) ++++ mg/dL [facility] Leukocytes, UA Negative Negative - 500+++ Charlie/mcL [facility] Nitrite, UA Negative Negative - Positive [facility] pH, UA 6 5 - 9 [facility] Protein, UA Negative Negative - 1999(20) ++++ mg/dL [facility] Spec Grav, UA 1.02 1 - 1.03 [facility] Urobilinogen, UA 1.0 0.2 - 12 mg/dL [facility] US OB FOLLOW UP TRANSABDOMIN AL APPROACHon [...] UA Negative Negative - 4(70) +++ mg/dL [facility] Blood, UA Negative Negative - 50 Willard/mcL [facility] Clarity, UA Clear [facility] Healthcare Color, UA Yellow [facility] Healthcare Glucose, UA Negative Negative - 1999(110) ++++ mg/dL [facility] Interpretation and review of laboratory results Normal [facility] Healthcare Ketones, UA Negative Negative - 160(16) ++++ mg/dL [facility] Leukocytes, UA Negative Negative - 500+++ Charlie/mcL [facility] Healthcare Nitrite, UA Negative Negative - Positive [facility] pH, UA 6 5 - 9 [facility] Healthcare Protein, UA Negative Negative - 1999(20) ++++ mg/dL [facility] Healthcare Spec Grav, UA 1.01 1 - 1.03 [facility] Urobilinogen, UA 1.0 0.2 - 12 mg/dL [facility] Urinalysis macro (dipstick) panel (U)on 03-21-2025 Bilirubin, UA Negative Negative - 4(70) +++ mg/dL [facility] Blood, UA Negative Negative - 50 Willard/mcL [facility] Healthcare Clarity, UA Clear [facility] Healthcare Color, UA Yellow [facility] Glucose, UA Negative Negative - 1999(110) ++++ mg/dL [facility] Interpretation and review of laboratory results Normal [facility] Ketones, UA Negative Negative - 160(16) ++++ mg/dL [facility] Healthcare Leukocytes, UA Negative Negative - 500+++ Charlie/mcL [facility] Nitrite, UA Negative Negative - Positive [facility] pH, UA 6.5 5 - 9 [facility] Healthcare Protein, UA Negative Negative - 1999(20) ++++ mg/dL [facility] Healthcare Spec Grav, UA 1.015 1 - 1.03 [facility] Urobilinogen, UA 0.2 0.2 - 12 mg/dL [facility] Healthcare OB GROWTHon 03-14-2025 [place] [address] Ultrasound Report Signed Patient: ROSANNE BELCHER MR#: [id number] : 2000 Acct:[id number] Age/Sex: 24 / F ADM Date: 03/14/25 Loc: Attending Dr: Sera Mckeon Ordering Physician: Sera Mckeon Date of Service: 03/14/25 Procedure(s): US OB growth Accession Number(s): [id number] cc: Sera Mckeon; Shilpi Blanton M.D. The [address] [address] Patient Name: ROSANNE BELCHER MRN: [facility]:[id number] date: 2000 Sex: F Assigned Patient Location: US Current Patient Location: US Accession/Order Number: [id number] Exam Date: 03/14/2025 15:38 Report Date: 03/14/2025 [...] Jr., D.O. 03/14/2025 3:41 PM Dictation Location: [place] [address] Electronically authenticated by: [id number] Y Date: 03/14/2025 15:41 Dictated By: Guanaco Davenport M.D. Signed By: 03/14/25 1544 DD/ 1541 TD/TT: Throat Cutter: [facility] Radiology, Radiologist, MD - 03/14/2025 [place] [address] Ultrasound Report Signed Patient: ROSANNE BELCHER MR#: [id number] : 2000 Acct:[id number] Age/Sex: 24 / F ADM Date: 03/14/25 Loc: US Attending Dr: Sera Mckeon Ordering Physician: Sera Mckeon Date of Service: 03/14/25 Procedure(s): US OB growth Accession Number(s): [id number] cc: Shilpi Leo M.D. The [address] [address] Patient Name: ROSANNE BELCHER MRN: [id number]:[id number] date: 2000 Sex: F Assigned Patient Location: US Current Patient Location: US Accession/Order Number: [id number] Exam Date: 03/14/2025 15:38 Report Date: 03/14/2025 [...] measurements. Impression dictated by: Guanaco Davenport Jr., DVerenice 03/14/2025 3:41 PM Dictation Location: [place] [address] Electronically authenticated by: [id number] Y Date: 03/14/2025 15:41 Dictated By: Guanaco Davenport M.D. Signed By: 03/14/25 1544 DD/ 1541 TD/TT: Throat Cutter: [facility] Radiology Study observation (narrative) [facility] OB GROWTHOrdered By: Joaquin contrerasogjuanita Radiology on 03-14-2025 [facility] Work Phone: ALL CBC WITH AUTO DIFFon BASOPHILS ABSOLUTE AUTO 0 [facility] Basophils/100 WBC (Bld) 0.2 % 0.2 - 2.0 % [facility] Eosinophils/100 WBC (Bld) 1 % 0.9 - 7.0 % [facility] Erythrocyte distribution width (RBC) [Ratio] 12.4 % 11.0 - 15.0 % [facility] Hematocrit (Bld) [Volume fraction] 33.6 % Low 36.0 - 48.0 % [facility] Hemoglobin (Bld) [Mass/Vol] 11.1 g/dL Low 12.0 - 16.0 g/dL [facility] IMMATURE GRANULOCYTES ABS AUTO 0.02 [facility] Immature granulocytes/100 WBC (Bld) 0.2 % 0.0 - 0.5 % [facility] Interpretation and review of laboratory results Abnormal [facility] LYMPHOCYTES ABSOLUTE AUTO 1.6 [facility] Lymphocytes/100 WBC (Bld) 17.6 % Low 20.5 - 60.0 % [facility] MCH (RBC) [Entitic mass] 27.3 pg 26.7 - 34.0 pg [facility] MCHC (RBC) [Mass/Vol] 33 g/dL 29.9 - 35.2 g/dL [facility] MCV (RBC) [Entitic vol] 82.8 fL 81.0 - 99.0 fL [facility] MONOCYTES ABSOLUTE AUTO 0.5 [facility] Monocytes/100 WBC (Bld) 6.1 % 1.7 - 12.0 % [facility] NEUTROPHILS ABSOLUTE AUTO 6.6 High [facility] Neutrophils/100 WBC (Bld) 74.9 % 43.0 - 75.0 % [facility] Platelet mean volume (Bld) [Entitic vol] 10 fL 9.5 - 13.5 fL [facility] TBH EO # 0.1 [facility] TBH PLT 283 [facility] RBC 4.06 Low [facility] WBC 8.9 [facility] Urinalysis macro (dipstick) panel (U)on 03-07-2025 Bilirubin, UA Negative Negative - 4(70) +++ mg/dL [facility] Blood, UA Negative Negative - 50 Willard/mcL [facility] Clarity, UA Clear [facility] Color, UA Yellow [facility] Glucose, UA Negative Negative - 1999(110) ++++ mg/dL [facility] Interpretation and review of laboratory results Normal [facility] Ketones, UA Negative Negative - 160(16) ++++ mg/dL [facility] Leukocytes, UA Negative Negative - 500+++ Charlie/mcL [facility] Nitrite, UA Negative Negative - Positive [facility] pH, UA 6.5 5 - 9 [facility] Protein, UA Negative Negative - 1999(20) ++++ mg/dL [facility] Spec Grav, UA 1.015 1 - 1.03 [facility] Urobilinogen, UA 0.2 0.2 - 12 mg/dL [facility] Urinalysis macro (dipstick) panel (U)on 02-21-2025 Bilirubin, UA Negative Negative - 4(70) +++ mg/dL [facility] Blood, UA Negative Negative - 50 Willard/mcL [facility] Clarity, UA Clear [facility] Color, UA Yellow [facility] Glucose, UA Negative Negative - 1999(110) ++++ mg/dL [facility] Interpretation and review of laboratory results Normal [facility] Ketones, UA Negative Negative - 160(16) ++++ mg/dL [facility] Leukocytes, UA Negative Negative - 500+++ Charlie/mcL [facility] Nitrite, UA Negative Negative - Positive [facility] pH, UA 6.5 5 - 9 [facility] Protein, UA Negative Negative - 1999(20) ++++ mg/dL [facility] Spec Grav, UA 1.01 1 - 1.03 [facility] Urobilinogen, UA 0.2 0.2 - 12 mg/dL [facility] Urinalysis macro (dipstick) panel (U)on 01-23-2025 Bilirubin, UA Negative Negative - 4(70) +++ mg/dL [facility] Blood, UA Negative Negative - 50 Willard/mcL [facility] Clarity, UA Clear [facility] Color, UA Yellow [facility] Glucose, UA Negative Negative - 1999(110) ++++ mg/dL [facility] Interpretation and review of laboratory results Normal [facility] Ketones, UA Negative Negative - 160(16) ++++ mg/dL [facility] Leukocytes, UA Negative Negative - 500+++ Charlie/mcL [facility] Nitrite, UA Negative Negative - Positive [facility] pH, UA 6.5 5 - 9 [facility] Protein, UA Negative Negative - 1999(20) ++++ mg/dL [facility] Spec Grav, UA 1.02 1 - 1.03 [facility] Urobilinogen, UA 0.2 0.2 - 12 mg/dL [facility] US OB 14+ WEEKS ANATOMY SCAN on [...] II, MD, PHD at 13-Jan-2025 06:46:09 PM [facility] Normal Not Available Comment on above: Order Comment: US OB ANATOMY SINGLE W US OB CERVICAL LENGTH Estimated Date of Delivery: 05/29/25 Gestational Age as of 12/26/2024: 18w0d RECURRENT VAGINITIS (HTRX)on 12-27-2024 ATOPOBIUM VAGINAE 0 [facility] Healthcare ATOPOBIUM VAGINAE Not detected [facility] BVAB 2,3 (BACTERIAL VAGINOSIS ASSOCIATED BACTERIA 2, 3); MOBILUNCUS SPP 0 [facility] BVAB 2,3 (BACTERIAL VAGINOSIS ASSOCIATED BACTERIA 2, 3); MOBILUNCUS SPP Not detected [facility] TRICIA ALBICANS, PARAPSILOSIS, TROPICALIS 0 [facility] TRICIA ALBICANS, PARAPSILOSIS, TROPICALIS Not detected [facility] TRICIA GLABRATA 0 [facility] TRICIA GLABRATA Not detected [facility] TRICIA KRUSEI 0 [facility] TRICIA KRUSEI Not detected [facility] CHLAMYDIA TRACHOMATIS 0 [facility] CHLAMYDIA TRACHOMATIS Not detected [facility] GARDNERELLA VAGINALIS 0 [facility] GARDNERELLA VAGINALIS Not detected [facility] MEGASPHAERA (TYPES 1, 2) 0 [facility] MEGASPHAERA (TYPES 1, 2) Not detected [facility] MYCOPLASMA GENITALIUM 0 [facility] MYCOPLASMA GENITALIUM Not detected [facility] NEISSERIA GONORRHOEAE 0 [facility] NEISSERIA GONORRHOEAE Not detected [facility] TRICHOMONAS VAGINALIS 0 [facility] TRICHOMONAS VAGINALIS Not detected [facility] Urinalysis macro (dipstick) panel (U)Ordered By: Alison King on 12-26-2024 Bilirubin, UA Negative Negative - 4(70) +++ mg/dL [facility] Blood, UA Negative Negative - 50 Willard/mcL [facility] Clarity, UA Clear [facility] Color, UA Yellow [facility] Glucose, UA Negative Negative - 1999(110) ++++ mg/dL [facility] Interpretation and review of laboratory results Normal [facility] Ketones, UA Negative Negative - 160(16) ++++ mg/dL [facility] Leukocytes, UA Negative Negative - 500+++ Charlie/mcL [facility] Nitrite, UA Negative Negative - Positive [facility] pH, UA 6 5 - 9 [facility] Protein, UA Negative Negative - 2000(20) ++++ mg/dL [facility] Spec Grav, UA 1.02 1 - 1.03 [facility] Urobilinogen, UA 0.2 0.2 - 12 mg/dL [facility] GLUCOSE TOLERANCE 3 HOURon 0 12-20-2024 GLUCOSE TOLERANCE 3 HOUR mg/dL [facility] Comment on above: GLU FAST 93 (<95) Co l: 12/20/24 0741 GLU 1HR 141 (<180) Col: 12/20/24 0849 GLU 2HR 131 (<155) Col: 12/20/24 0949 GLU 3HR 99 (<140) Col: 12/20/24 1052 [facility] Urinalysis macro (dipstick) panel (U)on 11-27-2024 Bilirubin, UA Negative Negative - 4(70) +++ mg/dL [facility] Blood, UA Negative Negative - 50 Willard/mcL [facility] Clarity, UA Clear [facility] Color, UA Yellow [facility] Glucose, UA Negative Negative - 1999(110) ++++ mg/dL [facility] Interpretation and review of laboratory results Normal [facility] Ketones, UA Negative Negative - 160(16) ++++ mg/dL [facility] Leukocytes, UA Negative Negative - 500+++ Charlie/mcL [facility] Nitrite, UA Negative Negative - Positive [facility] pH, UA 5.5 5 - 9 [facility] Protein, UA Negative Negative - 1999(20) ++++ mg/dL [facility] Spec Grav, UA 1.005 1 - 1.03 [facility] Urobilinogen, UA 0.2 0.2 - 12 mg/dL [facility] MLR HEMOGLOBIN A1Con 025 Glucose [Mass/Vol] 120 mg/dL [facility] HbA1c (Bld) [Mass fraction] 5.8 % 4.5 - 6.2 % [facility] Comment on above: ADA RECOMMENDED LIMI T 4.0 - 6.0 ADA THERAPEUTIC TARGET < 7.0 ACTION SUGGESTED > 7.[facility] Ql (U)o n 10-26-2024 Interpretation and review of laboratory results Abnormal [facility] Preg Test, Ur Positive Negative [facility] US OB TRANSVAGINALon 025 US OB TRANSVAGINAL [...] report is generated using voice recognition reporting ([employer]). On occasion, [employer] erroneously drops words from the report or [...] UA Negative Negative - 4(70) +++ mg/dL [facility] Blood, UA Negative Negative - 50 Willard/mcL [facility] Clarity, UA Clear [facility] Color, UA Yellow [facility] Glucose, UA Negative Negative - 1999(110) ++++ mg/dL [facility] Interpretation and review of laboratory results Normal [facility] Ketones, UA Negative Negative - 160(16) ++++ mg/dL [facility] Leukocytes, UA Negative Negative - 500+++ Charlie/mcL [facility] Nitrite, UA Negative Negative - Positive [facility] pH, UA 6.5 5 - 9 [facility] Protein, UA Negative Negative - 2000(20) ++++ mg/dL [facility] Spec Grav, UA 1.005 1 - 1.03 [facility] Urobilinogen, UA 0.2 0.2 - 12 mg/dL [facility] US SINGLE QUAD RT UPPERon US SINGLE [...] DARCY AU Date: 2021-12-26 16:10 Normal [facility] CBC AUTO DIFFon 07-29-2021 BASO # 0.0 103/ul Normal 0.0-0.1 [facility] Comment on above: Performed By: #### D RUGRPD #### [facility] [address] [place] [address] Dr. Brian Abdi Basophils/100 WBC (Bld) 0.2 % Normal 0.2-2.0 [facility] Comment on above: Performed By: #### D RUGRPD #### [facility] [address] [place] [address] Dr. Brian Abdi EO # 0.1 103/ul Normal 0.0-0.7 [facility] Comment on above: Performed By: #### D RUGRPD #### [facility] [address] [place] [address] Dr. Brian Abdi Eosinophils/100 WBC (Bld) 0.5 % Critically low 0.9-7.0 [facility] Comment on above: Performed By: #### D RUGRPD #### [facility] [address] [place] [address] Dr. Brian Abdi Erythrocyte distribution width (RBC) [Ratio] 13.9 % Normal 11.0-15.0 [facility] Comment on above: Performed By: #### D RUGRPD #### [facility] [address] [place] [address] Dr. Brian Abdi Hematocrit (Bld) [Volume fraction] 25.7 % Critically low 36.0-48.0 [facility] Comment on above: Performed By: #### D RUGRPD #### [facility] [address] [place] [address] [address] Brian Abdi Hemoglobin (Bld) [Mass/Vol] 8.2 g/dL Critically low 12.0-16.0 [facility] Comment on above: Result Comment: SUERSH ENT DELIVERED Performed By: #### D RUGRPD #### [facility] [address] [place] [address] Dr. Brian Abdi IG # 0.04 10e3/ul Critically high 0.00-0.03 [facility] Comment on above: Performed By: #### D RUGRPD #### [facility] [address] [place] [address] Dr. Brian Abdi IG % 0.4 % Normal 0.0-0.5 [facility] Comment on above: Performed By: #### D RUGRPD #### [facility] [address] [place] [address] Dr. Brian Abdi LYMPH # 2.4 103/ul Normal 1.2-3.8 [facility] Comment on above: Performed By: #### D RUGRPD #### [facility] [address] [place] [address] Dr. Brian Abdi Lymphocytes/100 WBC (Bld) 23.6 % Normal 20.5-60.0 [facility] Comment on above: Performed By: #### D RUGRPD #### [facility] [address] [place] [address] Dr. Brian Abdi MANUAL DIFF REQ NO Normal [facility] Comment on above: Performed By: #### D RUGRPD #### [facility] [address] [place] [address] Dr. Brian Abdi MCH (RBC) [Entitic mass] 27.6 pg Normal 26.7-34.0 [facility] Comment on above: Performed By: #### D RUGRPD #### [facility] [address] [place] [address] Dr. Brian Abdi MCHC (RBC) [Mass/Vol] 31.9 g/dL Normal 29.9-35.2 [facility] Comment on above: Performed By: #### D RUGRPD #### [facility] [address] [place] [address] [address] Brian Abdi MCV (RBC) [Entitic vol] 86.5 fL Normal 81.0-99.0 [facility] Comment on above: Performed By: #### D RUGRPD #### [facility] [address] [place] [address] Dr. Brian Abdi MONO # 0.7 103/ul Normal 0.3-0.8 [facility] Comment on above: Performed By: #### D RUGRPD #### [facility] [address] [place] [address] Dr. Brian Abdi Monocytes/100 WBC (Bld) 7.3 % Normal 1.7-12.0 [facility] Comment on above: Performed By: #### D RUGRPD #### [facility] [address] [place] [address] Dr. Brian Abdi NEUT # 6.8 103/ul Critically high 1.4-6.5 [facility] Comment on above: Performed By: #### D RUGRPD #### [facility] [address] [place] [address] Dr. Brian Abdi Neutrophils/100 WBC (Bld) 68.0 % Normal 43.0-75.0 [facility] Comment on above: Performed By: #### D RUGRPD #### [facility] [address] [place] [address] Dr. Brian Abdi Platelet mean volume (Bld) [Entitic vol] 9.8 fL Normal 9.5-13.5 [facility] Comment on above: Performed By: #### D RUGRPD #### [facility] [address] [place] [address] Dr. Brian Abdi PLT 204 103/ul Normal 150-450 [facility] Comment on above: Performed By: #### D RUGRPD #### [facility] [address] [place] [address] Dr. Brian Abdi RBC 2.97 106/ul Critically low 4.20-5.40 [facility] Comment on above: Performed By: #### D RUGRPD #### [facility] [address] [place] [address] [address] Brian Abdi WBC 10.0 103/ul Normal 4.0-11.0 [facility] Center Comment on above: Performed By: #### D RUGRPD #### [facility] [address] [address] [address] Brian Abdi CBC AUTO DIFFon 07-28-2021 BASO # 0.0 103/ul Normal 0.0-0.1 [facility] Comment on above: Performed By: #### H H #### [facility] [address] [place] [address] Sunitha Tram Basophils/100 WBC (Bld) 0.3 % Normal 0.2-2.0 [facility] Comment on above: Performed By: #### H H #### [facility] [address] [place] [address] Sunitha Tram EO # 0.0 103/ul Normal 0.0-0.7 [facility] Comment on above: Performed By: #### H H #### [facility] [address] [place] [address] Sunitha Tram Eosinophils/100 WBC (Bld) 0.6 % Critically low 0.9-7.0 [facility] Comment on above: Performed By: #### H H #### [facility] [address] [place] [address] Sunitha Tram Erythrocyte distribution width (RBC) [Ratio] 14.1 % Normal 11.0-15.0 [facility] Comment on above: Performed By: #### H H #### [facility] [address] [place] [address] Sunitha Tram Hematocrit (Bld) [Volume fraction] 34.5 % Critically low 36.0-48.0 [facility] Comment on above: Performed By: #### H H #### [facility] [address] [place] [address] Sunitha Tram Hemoglobin (Bld) [Mass/Vol] 10.8 g/dL Critically low 12.0-16.0 [facility] Comment on above: Performed By: #### H H #### [facility] [address] [address] Sunitha Tram IG # 0.02 10e3/ul Normal 0.00-0.03 [facility] Comment on above: Performed By: #### H H #### [facility] [address] [address] Sunitha Tram IG % 0.3 % Normal 0.0-0.5 [facility] Comment on above: Performed By: #### H H #### [facility] [address] [place] [address] Sunitha Tram LYMPH # 1.8 103/ul Normal 1.2-3.8 [facility] Comment on above: Performed By: #### H H #### [facility] [address] [place] [address] Sunitha Tram Lymphocytes/100 WBC (Bld) 25.4 % Normal 20.5-60.0 [facility] Comment on above: Performed By: #### H H #### [facility] [address] [place] [address] Sunithajack Ugalde MANUAL DIFF REQ NO Normal [facility] Comment on above: Performed By: #### H H #### [facility] [address] [place] [address] Sunitha Tram MCH (RBC) [Entitic mass] 27.3 pg Normal 26.7-34.0 [facility] Comment on above: Performed By: #### H H #### [facility] [address] [place] [address] Sunithajack Ugalde MCHC (RBC) [Mass/Vol] 31.3 g/dL Normal 29.9-35.2 [facility] Comment on above: Performed By: #### H H #### [facility] [address] [place] [address] Sunitha Tram MCV (RBC) [Entitic vol] 87.3 fL Normal 81.0-99.0 [facility] Comment on above: Performed By: #### H H #### [facility] [address] [address] Sunitha Ugalde MONO # 0.6 103/ul Normal 0.3-0.8 [facility] Comment on above: Performed By: #### H H #### [facility] [address] [id number] Sunitha Ugalde Monocytes/100 WBC (Bld) 8.7 % Normal 1.7-12.0 [facility] Comment on above: Performed By: #### H H #### [facility] [address] [address] Sunithajack Salesen NEUT # 4.7 103/ul Normal 1.4-6.5 [facility] Comment on above: Performed By: #### H H #### [facility] [address] [place] [address] Sunitha Ugalde Neutrophils/100 WBC (Bld) 64.7 % Normal 43.0-75.0 [facility] Comment on above: Performed By: #### H H #### [facility] [address] [place] [address] Sunitha Ugalde Platelet mean volume (Bld) [Entitic vol] 9.8 fL Normal 9.5-13.5 [facility] Comment on above: Performed By: #### H H #### [facility] [address] [place] [address] Sunithajack Salesen PLT 240 103/ul Normal 150-450 [facility] Comment on above: Performed By: #### H H #### [facility] [address] [place], [place] [id number] Sunithajack Salesen RBC 3.95 106/ul Critically low 4.20-5.40 [facility] Comment on above: Performed By: #### H H #### [facility] [address] [place], [place] [id number] Sunitha Tram WBC 7.3 103/ul Normal 4.0-11.0 [facility] Comment on above: Performed By: #### H H #### [facility] [address] [place], [place] [id number] Sunitha Ugalde DRUG SCREEN RAPID (URINE)on 07-28-2021 AMP Negative Normal NEGATIVE [facility] Comment on above: Performed By: #### D RUGRPD #### [facility] [address] [place] [address] Dr. Brian Abdi BAR Negative Normal NEGATIVE [facility] Comment on above: Performed By: #### D RUGRPD #### [facility] [address] [place] [address] Dr. Brian Abdi BUP Negative Normal NEGATIVE [facility] Comment on above: Performed By: #### D RUGRPD #### [facility] [address] [place] [address] Dr. Brian Abdi BZO Negative Normal NEGATIVE [facility] Comment on above: Performed By: #### D RUGRPD #### [facility] [address] [place] [address] Dr. Brian Abdi LISA Negative Normal NEGATIVE [facility] Comment on above: Performed By: #### D RUGRPD #### [facility] [address] [place] [address] Dr. Brian Abdi CUT-OFFS SEE BELOW Normal [facility] Comment on above: Result Comment: AMP (Amphetamine): 500ng/mL, BAR (Barbituates): 200 ng/mL, BZO (Benzodiazepines): 150 ng/mL, BUP (Buprenorphine): 10 ng/mL, LISA (Cocaine): 150 ng/mL, mAMP (Methamphetamine): 500 ng/mL, MTD (Methadone): 200 ng/mL, OPI (Opiates): 100 ng/mL, OXY (Oxycodone): 100 ng/mL, PCP (Phencyclidine): 25 ng/mL, PPX (Propoxyphene): 300 ng/mL, THC (Cannabinoids): 50 ng/mL, TCA (Trycyclic Antidepressants): 300 ng/mL Performed By: #### D RUGRPD #### [facility] [address] [place] [address] Dr. Brian Abdi DRUG CUT HEADER DRUG CLASS TEST SYSTEM CUT-OFF CONCENTRATIONS ARE FOLLOWS: Normal [facility] Comment on above: Performed By: #### D RUGRPD #### [facility] [address] [place] [address] Dr. Brian Abdi mAMP Negative Normal NEGATIVE [facility] Comment on above: Performed By: #### D RUGRPD #### [facility] [address] [place] [address] Dr. Brian Abdi MTD Negative Normal NEGATIVE [facility] Comment on above: Performed By: #### D RUGRPD #### [facility] [address] [place] [address] Dr. Brina Abdi OPI Negative Normal NEGATIVE [facility] Comment on above: Performed By: #### D RUGRPD #### [facility] [address] [place] [address] Dr. Brian Abdi OXY Negative Normal NEGATIVE [facility] Comment on above: Performed By: #### D RUGRPD #### [facility] [address] [place] [address] Dr. Brian Abdi PCP Negative Normal NEGATIVE [facility] Comment on above: Performed By: #### D RUGRPD #### [facility] [address] [place] [address] Dr. Brian Abdi PPX Negative Normal NEGATIVE [facility] Comment on above: Performed By: #### D RUGRPD #### [facility] [address] [place] [address] Dr. Brian Abdi TCA Negative Normal NEGATIVE [facility] Comment on above: Performed By: #### D RUGRPD #### [facility] [address] [place] [address] Dr. Brian Abdi THC Negative Normal NEGATIVE [facility] Comment on above: Performed By: #### D RUGRPD #### [facility] [address] [place] [address] Dr. Brian Abdi TYPE AND SCREENon 07-28-2021 TYPE AND SCREEN Negative Normal [facility] Comment on above: Performed By: #### T NS #### [facility] [address] [place] [address] Dr. Biran Abdi UA (CLEAN/CATCH) POULTRY DRESSER/MICRO I F IND.on 07-28-2021 Bilirubin Ql (U) Negative Normal NEGATIVE [facility] Comment on above: Performed By: #### H H #### [facility] [address] [place] [address] Sunitha Tram Clarity (U) CLEAR Normal CLEAR [facility] Comment on above: Performed By: #### H H #### [facility] [address] [place] [address] Sunitha Tarm Color (U) LT. YELLOW Normal YELLOW [facility] Comment on above: Performed By: #### H H #### [facility] [address] [place] [address] Sunitha Tram Glucose Ql (U) Negative Normal NEGATIVE [facility] Comment on above: Performed By: #### H H #### [facility] [address] [place] [address] Sunitha Tram Hemoglobin Ql (U) Negative Normal NEGATIVE [facility] Comment on above: Performed By: #### H H #### [facility] [address] [place] [address] Sunitha Tram Ketones Ql (U) Negative Normal NEGATIVE [facility] Comment on above: Performed By: #### H H #### [facility] [address] [place] [address] Sunitha Tram LEUKOCYTES Negative Normal NEGATIVE [facility] Comment on above: Performed By: #### H H #### [facility] [address] [place] [address] Sunitha Tram Nitrite Ql (U) Negative Normal NEGATIVE [facility] Comment on above: Performed By: #### H H #### [facility] [address] [place] [address] Sunitha Tram pH (U) 6.0 [pH] Normal 5-9 [facility] Comment on above: Performed By: #### H H #### [facility] [address] [place] [address] Sunitha Tram SPEC GRAVITY <=1.005 Abnormal 1.005-<=1.025 [facility] Comment on above: Performed By: #### H H #### [facility] [address] [place] [address] Sunitha Tram UA PROTEIN Negative Normal NEGATIVE/ TRACE [facility] Comment on above: Performed By: #### H H #### [facility] [address] [address] Sunitha Ugalde UR MICRO IND NOT INDICATED Normal [facility] Comment on above: Performed By: #### H H #### [facility] [address] [id number] Sunitha Ugalde Urobilinogen Qn (U) 0.2 {Fito'U}/dL Normal 0.2 - 1. 0 [facility] Comment on above: Performed By: #### H H #### [facility] [address] [place], [place] [id number] Sunitha Ugalde Covid-19 PCR ([facility])on 06-28 SARS-CoV-2 (COVID-19) RNA JEROD+probe Ql (Unsp spec) Not detected Normal NOT DETECTED [facility] Comment on above: Result Comment: This test is not yet approved or cleared by the [place] FDA. When there are no FDA-approved or cleared tests available, and other criteria are met, FDA can make tests available under an emergency access mechanism called an Emergency Use Authorization (EUA). The EUA for this test is supported by the [place] of Health and Human Service's (HHS's) declaration [...] SARS-CoV-2. Performed By: #### D RUGRPD #### [facility] [address] [place], [place] [id number] Dr. Brian Abdi GROUP B STREP CULTUREon 06-27 S. agalactiae Ag Ql (Unsp spec) Culture Observations: TYRONE CALD TO TRAM TRAORE,TESSIE@/ 21/RK Isolate 1 Streptococcus agalactiae Moderate growth [...] F Tetracycline <=0.25 S F Normal [facility] Comment on above: Performed By: #### G BSCX #### [facility] [address] [place], [place] [id number] Dr. Brian Abdi HEMOGRAM AND PLATELon 2020 Hematocrit (Bld) [Volume fraction] 33.7 % Critically low 36.0-48.0 [facility] Comment on above: Performed By: #### H H #### [facility] [address] [place], [place] [id number] Sunitha Tram Hemoglobin (Bld) [Mass/Vol] 10.8 g/dL Critically low 12.0-16.0 [facility] Comment on above: Performed By: #### H H #### [facility] [address] [place], [place] [id number] Sunitha Tram MCH (RBC) [Entitic mass] 28.3 pg Normal 26.7-34.0 [facility] Comment on above: Performed By: #### H H #### [facility] [address] [place], [place] [id number] Sunitha Tram MCHC (RBC) [Mass/Vol] 32.0 g/dL Normal 29.9-35.2 [facility] Comment on above: Performed By: #### H H #### [facility] [address] [place], [place] [id number] Sunitha Tram MCV (RBC) [Entitic vol] 88.2 fL Normal 81.0-99.0 [facility] Comment on above: Performed By: #### H H #### [facility] [address] [place], [place] [id number] Sunitha Tram PLT 252 103/ul Normal 150-450 [facility] Comment on above: Performed By: #### H H #### [facility] [address] [address] Sunitha Ugalde RBC 3.82 106/ul Critically low 4.20-5.40 [facility] Comment on above: Performed By: #### H H #### [facility] [address] [address] Sunitha Ugalde WBC 8.2 103/ul Normal 4.0-11.0 [facility] Comment on above: Performed By: #### H H #### [facility] [address] [place] [address] Sunitha Ugalde GLUCOSE - 1HRon 04-16-2021 Glucose [Mass/Vol] 129 mg/dL Critically high 74-106 T [facility] Comment on above: Performed By: #### D RUGRPD #### [facility] [address] [place] [address] Dr. Brian Abdi HEMOGLOBINon 04-16-2021 Hemoglobin (Bld) [Mass/Vol] 10.8 g/dL Critically low 12.0-16.0 [facility] Comment on above: Performed By: #### H H #### [facility] [address] [place] [address] Sunitha Ugalde AFP MATERNAL FOR SPINA BIFID Aon 03-19-2021 AFP MoM 0.91 Normal [facility] Comment on above: Performed By: #### H H #### [facility] [address] [address] Sunitha Ugalde AFP Value 47.2 ng/mL Normal [facility] Comment on above: Performed By: #### H H #### [facility] [address] [place] [address] Sunitha Ugalde AFP, Serum for Spina Bifida Report Normal [facility] Comment on above: Performed By: #### H H #### [facility] [address] [place] [address] Sunitha Ugalde Comment Comment Normal [facility] Comment on above: Result Comment: Isa Robles, Ph.D., [facility] Director . References: Available Upon Request. . Multiples Of Median Cutoffs For AFP Elevations Arroyo 2.5 Black 2.8 IDD 2.0 Twins 4.5 Abbreviation Definitions IDD - Insulin Dep Diabetes OSBR - Open Spina Bifida Risk . For further inquiries [facility] at [phone]. Performed By: #### H H #### [facility] [address] [address] Sunitha Ugalde Gest Age Collection Date 20.1 weeks Normal [facility] Comment on above: Performed By: #### H H #### [facility] [address] [place] [address] Sunitha Ugalde Gestat, Age Based on DEL Normal [facility] Comment on above: Result Comment: 03/2021 Recalculations are not recommended when gestational dating by LMP and ultrasound are within 10 days. Performed By: #### H H #### [facility] [address] [place] [address] Sunitha Ugalde Insulin Dep Diabetes No Normal [facility] Comment on above: Performed By: #### H H #### [facility] [address] [place] [address] Sunitha Ugalde Interpretation Comment Normal [facility] Comment on above: Result Comment: Inte rpretation: [...] Customer Services to discuss available options. The [employer] recommends amniocentesis be offered to women age 35 and older. Performed By: #### H H #### [facility] [address] [place] [address] Sunitha Ugalde [age] Normal [facility] Comment on above: Performed By: #### H H #### [facility] [address] [address] Sunitha Ugalde Multiple Gestation No Normal [facility] Comment on above: Performed By: #### H H #### [facility] [address] [place] [address] Sunitha Ugalde OSBR Risk 1 [place] [address] Normal [facility] Comment on above: Performed By: #### H H #### [facility] [address] [place] [address] Sunitha Ugalde PDF . Normal [facility] Comment on above: Performed By: #### H H #### [facility] [address] [place] [address] Sunitha Ugalde Race Normal [facility] Comment on above: Performed By: #### H H #### [facility] [address] [place] [address] Sunitha Ugalde Test Results: Negative Normal [facility] Comment on above: Performed By: #### H H #### [facility] [address] [place] [address] Sunitha Ugalde US PREG ANATOMY SINGLEon US [...] TRENT LEE Date: 2021-03-17 11:10 Normal [facility] HEMOGLOBIN AND HEMATOCRITon 03-12-2021 Hematocrit (Bld) [Volume fraction] 34.4 % Critically low 36.0-48.0 [facility] Comment on above: Performed By: #### H H #### [facility] [address] [place] [address] Sunithajack Ugalde Hemoglobin (Bld) [Mass/Vol] 11.3 g/dL Critically low 12.0-16.0 [facility] Comment on above: Performed By: #### H H #### [facility] [address] [place] [address] Sunitha Ugalde CHLAMYDIA/GONOCOCCUS JEROD (SW AB/URINE/PAPon 02-28-2021 Chlamydia trachomatis, JEROD Negative Normal Negative [facility] Comment on above: Performed By: #### C T/NGNA #### [facility] [address] [place] [address] Sunitha Ugalde Neisseria gonorrhoeae, JEROD Negative Normal Negative [facility] Comment on above: Performed By: #### C T/NGNA #### [facility] [address] [place] [address] Sunithajack Ugalde PAP ACOG PANEL 2: 21 to 29on 02-28-2021 . . Normal [facility] Comment on above: Performed By: #### H H #### [facility] [address] [place] [address] Sunithajack Ugalde Age Gdln ACOG Testing 19- Normal [facility] Comment on above: Performed By: #### H H #### [facility] [address] [place] [address] Sunitha Ugalde DIAGNOSIS: Comment Normal [facility] Comment on above: Result Comment: NEGA TIVE FOR INTRAEPITHELIAL LESION OR MALIGNANCY. Performed By: #### H H #### [facility] [address] [place] [address] Sunitha Ugalde Methodology: Comment Normal [facility] Comment on above: Result Comment: This liquid based ThinPrep(R) pap test was screened with the use of an image guided system. Performed By: #### H H #### [facility] [address] [place] [address] Sunitha Ugalde Note: Comment Normal [facility] Comment on above: Result Comment: The Pap smear is a screening test designed to aid in the detection of premalignant and malignant conditions of the uterine cervix. It is not a diagnostic procedure and should not be used as the sole means of detecting cervical cancer. Both false-positive and false-negative reports do occur. . Performed By: #### H H #### [facility] [address] [place] [address] Sunitha Ugalde Performed by: Comment Normal [facility] Comment on above: Result Comment: Aixa Betancur, Commercial Real Estate Sales Manager (ASCP) Performed By: #### H H #### [facility] [address] [place] [address] Sunitha Ugalde Reflex Criteria: Comment Normal [facility] Comment on above: Result Comment: The HPV DNA reflex criteria were not met with this specimen result therefore, no HPV testing was performed. . Performed By: #### H H #### [facility] [address] [place] [address] Sunitha Ugalde Specimen adequacy: Comment Normal [facility] Comment on above: Result Comment: Sati sfactory for evaluation. No endocervical component is identified. Performed By: #### H H #### [facility] [address] [place] [address] Sunitha Ugalde VAGINITIS/VAGINOSIS DNA PROB Constantine 02-27-2021 Tricia species Negative Normal Negative [facility] Comment on above: Performed By: #### V AGINT #### [facility] [address] [place] [address] Sunitha Ugalde Gardnerella vaginalis Negative Normal Negative [facility] Comment on above: Performed By: #### V AGINT #### [facility] [address] [place] [address] Sunitha Ugalde Trichomonas vaginalis Negative Normal Negative [facility] Comment on above: Performed By: #### V AGINT #### [facility] [address] [place] [address] Sunitha Ugalde CULTURE URINEon 01-16-2021 CULTURE URINE [...] F Tetracycline <=0.25 S F Normal [facility] Comment on above: Performed By: #### D SALAS #### [facility] [address] [place] [address] Dr. Brian Abdi HEP B SURFACE ANTIGEN SCREEN on 01-14-2021 HBsAg Screen Negative Normal Negative [facility] Comment on above: Performed By: #### H BSANS #### [facility] [address] [place] [address] Sunitha Ugalde HEPATITIS C VIRUS AB W/ REFL EX QUANTon 01-14-2021 HCV AB 0.1 s/co ratio Normal 0.0-0.9 [facility] Comment on above: Performed By: #### H H #### [facility] [address] [place] [address] Sunitha Ugalde Interpretation: Comment Normal [facility] Comment on above: Result Comment: Nega tive Not infected with HCV, unless recent infection is suspected or other evidence exists to indicate HCV infection. Performed By: #### H H #### [facility] [address] [place] [address] Sunitha Ugalde HIV 1 AND 2 WITH REFLEXon HIV Screen 4th Generation wRfx Non-Reactive Normal Non Reactive [facility] Comment on above: Performed By: #### D SHARONRPD #### [facility] [address] [place] [address] Dr. Brian Abdi RPR QUANTon 01-14-2021 Rapid Plasma Reagin, Quant Non-Reactive Normal NonRea<1:1 [facility] [place] [facility] Comment on above: Performed By: #### H H #### [facility] [address] [place] [address] Sunitha Ugalde RUBELLA AB IGGon 01-14-2021 Rubella Antibodies, IgG 1.27 index Normal Immune >0.99 [facility] [place] [facility] Comment on above: Result Comment: Non- immune <0.90 Equivocal 0.90 - 0.99 Immune >0.99 Performed By: #### H H #### [facility] [address] [place] [address] Sunitha Tram CBC AUTO DIFFon 01-13-2021 BASO # 0.0 103/ul Normal 0.0-0.1 [facility] [place] [facility] Comment on above: Performed By: #### C BC #### [facility] [address] [place] [address] Sunitha Tram Basophils/100 WBC (Bld) 0.4 % Normal 0.2-2.0 [facility] [place] [facility] Comment on above: Performed By: #### C BC #### [facility] [address] [place] [address] Sunitha Tram EO # 0.1 103/ul Normal 0.0-0.7 [facility] [place] [facility] Comment on above: Performed By: #### C BC #### [facility] [address] [place] [address] Sunitha Tram Eosinophils/100 WBC (Bld) 0.7 % Critically low 0.9-7.0 [facility] [place] [facility] Comment on above: Performed By: #### C BC #### [facility] [address] [place], [place] [id number] Sunitha Tram Erythrocyte distribution width (RBC) [Ratio] 13.7 % Normal 11.0-15.0 [facility] [place] [facility] Comment on above: Performed By: #### C BC #### [facility] [address] [place] [address] Sunithajack Ugalde Hematocrit (Bld) [Volume fraction] 39.1 % Normal 36.0-48.0 [facility] [place] [facility] Comment on above: Performed By: #### C BC #### [facility] [address] [place] [address] Sunitha Ugalde Hemoglobin (Bld) [Mass/Vol] 12.7 g/dL Normal 12.0-16.0 [facility] [place] [facility] Comment on above: Performed By: #### C BC #### [facility] [address] [place] [address] Sunithajack Ugalde IG # 0.02 10e3/ul Normal 0.00-0.03 [facility] [place] [facility] Comment on above: Performed By: #### C BC #### [facility] [address] [place] [address] Sunithajack Ugalde IG % 0.3 % Normal 0.0-0.5 [facility] [place] [facility] Comment on above: Performed By: #### C BC #### [facility] [address] [place] [address] Sunitha Ugalde LYMPH # 1.6 103/ul Normal 1.2-3.8 [facility] Comment on above: Performed By: #### C BC #### [facility] [address] [place] [address] Sunitha Ugalde Lymphocytes/100 WBC (Bld) 21.6 % Normal 20.5-60.0 [facility] [place] [facility] Comment on above: Performed By: #### C BC #### [facility] [address] [place] [address] Sunitha Ugalde MANUAL DIFF REQ NO Normal [facility] Comment on above: Performed By: #### C BC #### [facility] [address] [place], [place] [id number] Sunitha Ugalde MCH (RBC) [Entitic mass] 27.6 pg Normal 26.7-34.0 [facility] [place] [facility] Comment on above: Performed By: #### C BC #### [facility] [address] [place] [address] Sunitha Ugalde MCHC (RBC) [Mass/Vol] 32.5 g/dL Normal 29.9-35.2 [facility] [place] [facility] Comment on above: Performed By: #### C BC #### [facility] [address] [id number] Sunitha Ugalde MCV (RBC) [Entitic vol] 85.0 fL Normal 81.0-99.0 [facility] [place] [facility] Comment on above: Performed By: #### C BC #### [facility] [address] [id number] Sunitha Ugalde MONO # 0.4 103/ul Normal 0.3-0.8 [facility] [place] [facility] Comment on above: Performed By: #### C BC #### [facility] [address] [place], [place] [id number] Sunitha Ugalde Monocytes/100 WBC (Bld) 5.4 % Normal 1.7-12.0 [facility] [place] [facility] Comment on above: Performed By: #### C BC #### [facility] [address] [place] [address] Sunitha Salesen NEUT # 5.4 103/ul Normal 1.4-6.5 [facility] [place] [facility] Comment on above: Performed By: #### C BC #### [facility] [address] [place], [place] [id number] Sunitha Ugalde Neutrophils/100 WBC (Bld) 71.6 % Normal 43.0-75.0 [facility] [place] [facility] Comment on above: Performed By: #### C BC #### [facility] [address] [place], [place] [id number] Sunithajack Ugalde Platelet mean volume (Bld) [Entitic vol] 9.3 fL Critically low 9.5-13.5 [facility] [place] [facility] Comment on above: Performed By: #### C BC #### [facility] [address] [place], [place] [id number] Sunitha Tram PLT 296 103/ul Normal 150-450 [facility] Comment on above: Performed By: #### C BC #### [facility] [address] [place], [place] [id number] Sunitha Tram RBC 4.60 106/ul Normal 4.20-5.40 [facility] Comment on above: Performed By: #### C BC #### [facility] [address] [place], [place] [address] Sunitha Ugalde WBC 7.5 103/ul Normal 4.0-11.0 [facility] [place] [facility] Comment on above: Performed By: #### C BC #### [facility] [address] [place], [place] [address] Sunitha Ugalde GLYCOHEMOGLOBIN A1Con 2020 ADA RECOMMENDATION ADA THERAPEUTIC TARGET 6.0 - 7.0 ACTION SUGGESTED > 7.0 Normal [facility] [place] [facility] Comment on above: Performed By: #### A 1C #### [facility] [address] [place], [place] [address] Sunitha Ugalde Glucose [Mass/Vol] 111 mg/dL Normal [facility] Comment on above: Performed By: #### A 1C #### [facility] [address] [place] [id number] Sunitha Ugalde HbA1c (Bld) [Mass fraction] 5.5 % Normal <=6.0 [facility] [place] [facility] Comment on above: Performed By: #### A 1C #### [facility] [address] [place], [place] [address] Sunitha Ugalde BARBI BOX TEST PT SEND OUTo n 01-13-2021 SENT TO REF LAB 01/13/21 Normal [facility] Comment on above: Performed By: #### D RUGRPD #### [facility] [address] [place] [address] [address] Brian Abdi TYPE AND SCREENon 01-13-2021 TYPE AND SCREEN Negative Normal [facility] Comment on above: Performed By: #### D SHARONRPD #### [facility] [address] [place] [id number] [address] Brian Abdi Vital Signs Date Time Vital Sign Value Performing Clinician Facility 05-08-2025 12:00-0400 Body height 157.5 cm Sera RIVAS Work Phone: [facility] 05-08-2025 11:55-0400 Body mass index (BMI) [Ratio] 41.88 kg/m2 Sera RIVAS Work Phone: [facility] 05-08-2025 11:55-0400 Body weight 103.87 kg Sera Dylon PA Work Phone: [facility] 05-08-2025 11:55-0400 Diastolic blood pressure 90 mm[Hg] Sera Dylon PA Work Phone: [facility] 05-08-2025 11:55-0400 Systolic blood pressure 130 mm[Hg] Sera [place] PA Work Phone: [facility] 05-01-2025 09:17-0400 Body weight 103.15 kg Andres Dante DO Work Phone: [facility] 05-01-2025 09:17-0400 Diastolic blood pressure 82 mm[Hg] Andres Dante DO Work Phone: [facility] 05-01-2025 09:17-0400 Systolic blood pressure 130 mm[Hg] Andres Dante DO Work Phone: [facility] 04-19-2025 08:43-0400 Body weight 102.06 kg Sera Dylon PA Work Phone: [facility] 04-19-2025 08:43-0400 Diastolic blood pressure 68 mm[Hg] Sera Dylon PA Work Phone: [facility] 04-19-2025 08:43-0400 Systolic blood pressure 120 mm[Hg] Sera [place] PA Work Phone: [facility] 03-21-2025 09:04-0400 Body weight 99.79 kg Kamila Valeriy METROLOGY SPECIALIST Work Phone: [facility] 03-21-2025 09:04-0400 Diastolic blood pressure 60 mm[Hg] Kamila Valeriy METROLOGY SPECIALIST Work Phone: [facility] 03-21-2025 09:04-0400 Systolic blood pressure 120 mm[Hg] Kamila Valeriy METROLOGY SPECIALIST Work Phone: [facility] 03-07-2025 15:18-0400 Body weight 99.97 kg Andres Dante DO Work Phone: [facility] 03-07-2025 15:18-0400 Diastolic blood pressure 70 mm[Hg] Andres Dante DO Work Phone: [facility] 03-07-2025 15:18-0400 Systolic blood pressure 120 mm[Hg] Andres Dante DO Work Phone: [facility] 02-21-2025 15:04-0400 Body weight 99.22 kg Andres Dante DO Work Phone: [facility] 02-21-2025 15:04-0400 Diastolic blood pressure 72 mm[Hg] Andres Dante DO Work Phone: [facility] 02-21-2025 15:04-0400 Systolic blood pressure 106 mm[Hg] Andres Dante DO Work Phone: [facility] 01-23-2025 15:00-0400 Body weight 96.98 kg Andres Dante DO Work Phone: [facility] 01-23-2025 15:00-0400 Diastolic blood pressure 70 mm[Hg] Andres Dante DO Work Phone: [facility] 01-23-2025 15:00-0400 Systolic blood pressure 120 mm[Hg] Andres Dante DO Work Phone: [facility] 12-26-2024 14:32-0400 Body weight 95.44 kg Andres Dante DO Work Phone: [facility] 12-26-2024 14:32-0400 Diastolic blood pressure 70 mm[Hg] Andres Dante DO Work Phone: [facility] 12-26-2024 14:32-0400 Systolic blood pressure 108 mm[Hg] Andres Dante DO Work Phone: [facility] 11-27-2024 14:37-0500 Body weight 96.53 kg Andres Dante DO Work Phone: [facility] 11-27-2024 14:37-0500 Diastolic blood pressure 70 mm[Hg] Andres Dante DO Work Phone: [facility] 11-27-2024 14:37-0500 Systolic blood pressure 122 mm[Hg] Andres Howell DO Work Phone: [facility] 10-26-2024 14:54-0500 Body weight 96.25 kg Noms Nurse [facility] 03-19-2021 02:06-0400 Body weight 83.[address] ANDRES HOWELL [facility] Comment on above: Performed By: #### HH #### [facility] [address] [address] Sunitha Ugalde Encounters Encounter Date Encounter Type Care Provider Facility Start: 05-10-2025 End: 05-10-2025 Clinisync Result Encounter Sera RIVAS Work Phone: [facility] Unsolicited Start: 05-10-2025 End: 05-10-2025 Clinisync Result Encounter Sera RIVAS Work Phone: [facility] Unsolicited Start: 05-09-2025 End: 05-09-2025 Clinisync Result Encounter Sera RIVAS Work Phone: [facility] Unsolicited Start: 05-09-2025 End: 05-09-2025 Clinisync Result Encounter Sera RIVAS Work Phone: [facility] Unsolicited Start: 05-08-2025 End: 05-08-2025 Bamboo flowsheet Sera RIVAS Work Phone: [facility] Start: 05-08-2025 End: 05-08-2025 Bamboo flowsheet Sera RIVAS Work Phone: [facility] Start: 05-08-2025 End: 05-08-2025 ambulatory SERA MCKEON Not Available Start: 05-08-2025 End: 05-08-2025 Office outpatient visit 15 minutes Sera RIVAS Work Phone: [facility] Comment on above: Third trimester preg ulises ([facility]); 37 weeks gestation of ([facility]); induced hypertension, antepartum ([facility]) Start: 05-01-2025 End: 05-01-2025 Bamboo flowsheet Andres Dante DO Work Phone: [facility] Start: 05-01-2025 End: 05-01-2025 Bamboo flowsheet Andres Dante DO Work Phone: [facility] Start: 05-01-2025 End: 05-01-2025 flow sheet Andres Dante DO Work Phone: [facility] Comment on above: 36 weeks gestation o f ([facility]); Third trimester ([facility]); H/O section Start: 05-01-2025 End: 05-01-2025 ambulatory ANDRES DANTE Not Available Start: 04-19-2025 End: 04-19-2025 Office outpatient visit 15 minutes Sera RIVAS Work Phone: [facility] Comment on above: 34 weeks gestation o f ([facility]); Third trimester ([facility]) Start: 04-19-2025 End: 04-19-2025 ambulatory SERA MCKEON Not Available Start: 03-21-2025 End: 03-21-2025 Bamboo flowsheet Kamila Valeriy METROLOGY SPECIALIST Work Phone: [facility] Start: 03-21-2025 End: 03-21-2025 Bamboo flowsheet Kamila Valeriy METROLOGY SPECIALIST Work Phone: [facility] Start: 03-21-2025 End: 03-21-2025 flow sheet Kamila Valeriy METROLOGY SPECIALIST Work Phone: [facility] Comment on above: Size of fetus incons istent with dates in third trimester ([facility]) (Primary Dx); Third trimester ([facility]); 30 weeks gestation of ([facility]) Start: 03-21-2025 End: 03-21-2025 ambulatory KAMILA VALERIY [...] [facility] Start: 03-07-2025 End: 03-07-2025 Bamboo flowsheet Andres Dante DO Work Phone: [facility] Start: 03-07-2025 End: 03-07-2025 Clinisync Result Encounter Andres Dante DO Work Phone: [facility] Unsolicited Start: 02-21-2025 End: 02-21-2025 [...] DO Work Phone: [facility] Start: 01-23-2025 End: 01-23-2025 ambulatory ANDRES DANTE Not Available Start: 01-23-2025 End: 01-23-2025 Office outpatient visit 5 minutes Andres Dante DO Work Phone: [facility] Comment on above: Second trimester pre gnancy; 22 weeks gestation of ; Diabetes mellitus screening Start: 01-23-2025 End: 01-23-2025 Bamboo flowsheet Andres Dante DO Work Phone: [facility] Start: 01-23-2025 End: 01-23-2025 Bamboo flowsheet Andres Dante DO Work Phone: [facility] Start: 01-10-2025 End: 01-10-2025 ambulatory ANDRES DANTE Not Available Start: 12-26-2024 End: 12-26-2024 Bamboo flowsheet Andres Dante DO Work Phone: [facility] Start: 12-26-2024 End: 12-27-2024 Bamboo flowsheet Andres Dante DO Work Phone: [facility] Start: 12-26-2024 End: 12-27-2024 External Result Encounter Andres Dante DO Work Phone: [facility] External Department Unsolicited Start: 12-26-2024 End: 12-26-2024 Patient encounter procedure Andres Dante DO Work Phone: [facility] Healthcare Start: 12-26-2024 End: 12-26-2024 flow sheet Andres Dante DO Work Phone: [facility] Comment on above: Second trimester [...] Result Encounter Andres Dante DO Work Phone: [facility] External Department Unsolicited Start: 12-20-2024 End: 12-20-2024 Clinisync Result Encounter Andres Dante DO Work Phone: [facility] Unsolicited Start: 11-27-2024 End: 11-27-2024 flow sheet Andres Dante DO Work Phone: [facility] Comment on above: 13 weeks gestation o f ; Second trimester Start: 11-27-2024 End: 11-27-2024 ambulatory ANDRES DANTE Not Available Start: 11-27-2024 End: 11-27-2024 Bamboo flowsheet Andres Dante DO Work Phone: [facility] Start: 11-27-2024 End: 11-27-2024 Bamboo flowsheet Andres Danet DO Work Phone: [facility] Start: [...] 9w2d Start: 10-26-2024 End: 10-26-2024 ambulatory ANDRES NORTHO Not Available Start: 12-26-2021 End: 12-27-[address] SHILPI BLANTON Facility:[facility] Start: 08-04-2021 End: 08-04-[address] ANDRES HOWELL Facility:[facility] Start: 07-28-2021 Evaluation and manag ement of inpatient ZENA QUEVEDO Facility:[facility] Start: 07-28-2021 End: 07-30-2021 Evaluation and management of inpatient DR ANDRES HOWELL Facility:[facility] Start: 07-25-2021 Encounter for preprocedural laboratory examination DR ANDRES HOWELL [facility] [place] [facility] Start: 07-22-2021 End: 07-22-[address] ANDRES [...] Date Procedure Procedure Detail Performing Clinician Start: 05-10-2025 US OB BPP W NON-STRESS Sera RIVAS Work Phone: Start: 05-09-2025 ALL CBC WITH AUTO DIFF Sera RIVAS Work Phone: Start: 05-08-2025 Urnls dip stick/tabl et rgnt non-auto w/o micrscp Sera RIVAS Work Phone: Start: 05-01-2025 Urnls dip stick/tabl et rgnt non-auto w/o micrscp Andres Howell DO Work Phone: Start: 04-19-2025 Urnls dip stick/tabl et rgnt non-auto w/o micrscp Sera RIVAS Work Phone: Start: 03-21-2025 Urnls dip stick/tabl et rgnt non-auto w/o micrscp Kamila Crooks NP Work Phone: Start: 03-14-2025 US OB GROWTH Sera Mckeon PA Work Phone: Start: 03-07-2025 Urnls dip stick/tabl [...] stick/tabl et rgnt non-auto w/o micrscp Andres Datne DO Work Phone: Start: 12-26-2024 RECURRENT VAGINITIS [...] HOWELL H/O: section H/O sectio n Andres Howell DO Work Phone: Plan of Treatment Date Care Activity Detail Author Start: 05-17-2025 End: 05-17-2025 Professional / ancillary services management [facility] Start: 05-14-2025 End: 05-14-2025 Patient encounter procedure 05/14/2025 8:30 AM EDT Routine ANA RUTLEDGE [address] [facility] [place] [phone] Andres Howell DO [address] [facility] [place] [id number] [facility] [place] [facility] Start: 05-08-2025 End: 05-08-2026 Alanine aminotransferase [Enzymatic activity/volume] in Serum or Plasma ALT Lab Routine induced hypertension, antepartum ([facility]) Expected: 05/08/2025 (Approximate), Expires: 05/08/2026 [facility] Comment on above: Expected: 05/08/2025 (Approximate), Expires: 05/08/2026 Start: 05-08-2025 End: 05-08-2026 Aspartate aminotransferase [Enzymatic activity/volume] in Serum or Plasma AST Lab Routine induced hypertension, antepartum ([facility]) Expected: 05/08/2025 (Approximate), Expires: 05/08/2026 [facility] Comment on above: Expected: 05/08/2025 (Approximate), Expires: 05/08/2026 Start: 05-08-2025 End: 05-08-2026 CBC W Auto Differential panel - Blood CBC and differential Lab Routine induced hypertension, antepartum ([facility]) Expected: 05/08/2025 (Approximate), Expires: 05/08/2026 [facility] Comment on above: Expected: 05/08/2025 (Approximate), Expires: 05/08/2026 Start: 05-08-2025 End: 05-08-2026 Creatinine [Mass/volume] in Serum or Plasma Creatinine Lab Routine induced hypertension, antepartum ([facility]) Expected: 05/08/2025 (Approximate), Expires: 05/08/2026 [facility] Work Phone: Comment on above: Expected: 05/08/2025 (Approximate), Expires: 05/08/2026 Start: 05-08-2025 End: 05-08-2026 Lactate dehydrogenase [Enzymatic activity/volume] in Serum or Plasma by Lactate to pyruvate reaction Lactate dehydrogenase Lab Routine induced hypertension, antepartum ([facility]) Expected: 05/08/2025, Expires: 05/08/2026 [facility] Comment on above: Expected: 05/08/2025 , Expires: 05/08/2026 Start: 05-08-2025 End: 05-08-2026 Protein, urine, 24 hour Protein, urine, 24 hour Lab Routine induced hypertension, antepartum ([facility]) Expected: 05/08/2025 (Approximate), Expires: 05/08/2026 [facility] Comment on above: Expected: 05/08/2025 (Approximate), Expires: 05/08/2026 Start: 05-08-2025 End: 05-08-2026 Pt and ptt Pt and ptt Lab Routine induced hypertension, antepartum ([facility]) Expected: 05/08/2025, Expires: 05/08/2026 [facility] Comment on above: Expected: 05/08/2025 , Expires: 05/08/2026 Start: 05-08-2025 End: 05-08-2026 Urate [Mass/volume] in Serum or Plasma Uric acid Lab Routine induced hypertension, antepartum ([facility]) Expected: 05/08/2025 (Approximate), Expires: 05/08/2026 [facility] Comment on above: Expected: 05/08/2025 (Approximate), Expires: 05/08/2026 Start: 05-08-2025 End: 05-08-2026 Urea nitrogen [Mass/volume] in Serum or Plasma BUN Lab Routine induced hypertension, antepartum ([facility]) Expected: 05/08/2025, Expires: 05/08/2026 [facility] Comment on above: Expected: 05/08/2025 , Expires: 05/08/2026 Start: 05-08-2025 End: 11-08-2025 US biophysical profile w non stress test US biophysical profile w non stress test Imaging Routine induced hypertension, antepartum ([facility]) Expected: 05/08/2025 (Approximate), Expires: 11/08/2025 [facility] Comment on above: Expected: 05/08/2025 (Approximate), Expires: 11/08/2025 Start: 05-08-2025 End: 05-08-2025 Patient encounter procedure 05/08/2025 11:20 AM EDT Routine [facility] [address] [facility] [place] [phone] Sera Mckeon PA [address] [facility] [id number] [facility] Start: 05-01-2025 End: 05-01-2026 CULTURE, GROUP B STREP WITH SUSCEPTIBLITY CULTURE, GROUP B STREP WITH SUSCEPTIBLITY Lab Routine Third trimester ([facility]) Expected: 05/01/2025, Expires: 05/01/2026 [facility] Work Phone: Comment on above: Expected: 05/01/2025 , Expires: 05/01/2026 Start: 05-01-2025 End: 05-01-2025 Patient encounter procedure [facility] Comment on above: Arrived Start: 03-21-2025 End: 07-21-2025 US for US OB follow up transabdominal approach Imaging Routine Size of fetus inconsistent with dates in third trimester ([facility]) Expected: 03/21/2025, Expires: 07/21/2025 [facility] Work [...] PM EDT Routine [facility] [address] [place] [phone] Andres Howell, DO [address] [place] [id number] [facility] Start: 01-23-2025 End: 01-23-2026 CBC panel - Blood by Automated count CBC Lab Routine Diabetes mellitus screening Expected: 01/23/2025 (Approximate), Expires: 01/23/2026 [facility] Work Phone: Comment on above: Expected: 01/23/2025 (Approximate), Expires: 01/23/2026 Start: 01-10-2025 End: 01-10-2025 Professional / ancillary services management 01/10/2025 2:30 PM EDT Ancillary Procedure [facility] [address] [place] [phone] [facility] Start: 12-26-2024 End: 02-25-2025 [...] gestational age Expected: 10/26/2024 (Approximate), Expires: 10/26/2025 [facility] Comment on above: Expected: 10/26/2024 (Approximate), Expires: 10/26/2025 Start: 10-26-2024 End: 10-26-2025 Blood type and Indirect antibody screen panel - Blood Type and screen Lab Routine Missed menses , unspecified gestational age Expected: 10/26/2024 (Approximate), Expires: 10/26/2025 [facility] Work Phone: Comment on above: Expected: 10/26/2024 (Approximate), Expires: 10/26/2025 Start: 10-26-2024 End: 10-26-2025 Drugs of abuse panel - Urine by Screen method Rapid drug screen, urine Lab Routine , unspecified gestational age Encounter for supervision of normal first in first trimester Expected: 10/26/2024 (Approximate), Expires: 10/26/2025 [facility] Comment on above: Expected: 10/26/2024 (Approximate), Expires: 10/26/2025 Bacteria identified in Urine by Culture Urine culture Microbiology Routine Missed menses Ordered: 10/26/2024 [facility] Comment on above: Ordered: 10/26/2024 CBC W Auto Different ial panel - Blood CBC and differential Lab Routine Missed menses , unspecified gestational age Ordered: 10/26/2024 [facility] Comment on above: Ordered: 10/26/2024 CHLAMYDIA TRACHOMATI S (GENITO/STI) CHLAMYDIA TRACHOMATIS (GENITO/STI) Lab Routine Vaginal discharge STD exposure Ordered: 12/26/2024 [facility] Comment on above: Ordered: 12/26/2024 Hemoglobin A1c/Hemoglobin.total in Blood Hemoglobin A1c Lab Routine Missed menses , unspecified gestational age Ordered: 10/26/2024 [facility] Comment on above: Ordered: 10/26/2024 Hepatitis B virus gardiner rface Ag [Presence] in Serum or Plasma by Immunoassay Hepatitis B surface antigen Lab Routine Missed menses , unspecified gestational age Ordered: 10/26/2024 [facility] Comment on above: Ordered: 10/26/2024 Hepatitis C virus Ab [Presence] in Serum or Plasma by Immunoassay Hepatitis C antibody Lab Routine Missed menses , unspecified gestational age Ordered: 10/26/2024 [facility] Comment on above: Ordered: 10/26/2024 HIV-1/HIV-2 antigen/antibody combination immunoassay HIV-1 and HIV-2 antibodies Lab Routine Missed menses , unspecified gestational age Ordered: 10/26/2024 [facility] Comment on above: Ordered: 10/26/2024 Neisseria gonorrhoea e DNA [Presence] in Unspecified specimen by JEROD with probe detection Neisseria gonorrhea DNA probe, direct Lab Routine Vaginal discharge STD exposure Ordered: 12/26/2024 [facility] Comment on above: Ordered: 12/26/2024 Reagin Ab [Presence] in Serum by RPR RPR Lab Routine Missed menses , unspecified gestational age Ordered: 10/26/2024 [facility] Comment on above: Ordered: 10/26/2024 Rubella antibody, IgG Rubella an tibody, IgG Lab Routine Missed menses , unspecified gestational age Ordered: 10/26/2024 [facility] Comment on above: Ordered: 10/26/2024 SURESWAB(R) ADVANCED VAGINITIS PLUS, TMA SURESWAB(R) ADVANCED VAGINITIS PLUS, TMA Pathology and Cytology Routine Vaginal discharge STD exposure Ordered: 12/26/2024 [facility] Work Phone: Comment on above: Ordered: 12/26/2024 Thyrotropin [Units/v olume] in Serum or Plasma TSH Lab Routine Thyroid disorder screening Ordered: 12/26/2024 [facility] Comment on above: Ordered: 12/26/2024 Thyroxine (T4) free [Mass/volume] in Serum or Plasma T4, free Lab Routine Thyroid disorder screening Ordered: 12/26/2024 [facility] Comment on above: Ordered: 12/26/2024 Payers Date Payer Category Payer Private Health Insurance [facility] [id number] 1998 Unknown [id number] 2.16.840.1.544631.3.579. 2.593 1998 Unknown [id number] 2.16.840.1.060092.3.579. 2.593 1998 Unknown [id number] 2.16.840.1.012547.3.579. 2.593 1998 Unknown [id number] 2.16.840.1.510610.3.579. 2.593 1998 Unknown [id number] 2.16.840.1.666009.3.579. 2.593 1998 Unknown [id number] 2.16.840.1.560602.3.579. 2.593 1998 Unknown [id number] 2.16.840.1.311700.3.579. 2.593 1998 Unknown [id number] 2.16.840.1.769285.3.579. 2.593 1998 Unknown [id number] 2.16.840.1.348541.3.579. 2.593 1998 Unknown [id number] 2.16.840.1.815004.3.579. 2.593 1998 Unknown [id number] 2.16.840.1.071636.3.579. 2.593 1998 Unknown [id number] 2.16.840.1.624906.3.579. 2.593 1998 Unknown [id number] 2.16.840.1.712153.3.579. 2.593 1998 Unknown [id number] 2.16.840.1.749382.3.579. 2.9 1998 Unknown [id number] 2.16.840.1.826386.3.579. 2.9 1998 Unknown [id number] 2.16.840.1.328735.3.579. 2.1258 1998 Unknown [id number] 2.16.840.1.560565.3.579. 2.1258 1998 Unknown [id number] 2.16.840.1.249975.3.579. 2.1258 1998 Unknown [id number] 2.16.840.1.887900.3.579. 2.1258 1998 Unknown [id number] 2.16.840.1.861027.3.579. 2.1258 1998 Unknown [id number] 2.16.840.1.168431.3.579. 2.1258 1998 Unknown [id number] 2.16.840.1.532169.3.579. 2.1258 1998 Unknown [id number] 2.16.840.1.237296.3.579. 2.1258 1998 Unknown [id number] 2.16.840.1.865632.3.579. 2.1258 1998 Unknown [id number] 2.16.840.1.269102.3.579. 2.1258 1998 Unknown [id number] 2.16.840.1.264364.3.579. 2.9 1959 Private Health Insurance [id number] 1959 Self-pay [id number] Unknown [id number] 2.16.840.1.963451.3.579. 2.593 Social History Date Type Detail Facility Tobacco smoking stat [facility] Tobacco smoking consumption unknown [facility] Start: 09-05-2024 [facility] Start: 1998 Sex assigned at Not on file [facility] Gender identity Not on file [facility] Medical Equipment Procedure Code Equipment Code Equipment Origin al Text Equipment Identifier Dates 1 strip by In Vi tro route Daily Use in the morning prior to breakfast, 1 hour after each meal for a total of 4times daily. [id number] Start: 12-26-2024 End: 01-25-2025 1 each by In Vit ro route Daily Use to check FSBS four times daily [id number] Start: 12-26-2024 End: 01-25-2025 Clinical Notes 07-28-2021 to 05-08-2025 ROB Rosenbaum - 05/08/2025 11:20 AM EDAilyn Traore LPN - 05/01/2025 9:10 AM ROB [...] nursing note reviewed. Exam conducted with a bleacher pulp present. Vitals: Estimated body mass index is 41.88 kg/m as calculated from the following: Height as of this encounter: 5' 2 . Weight as of this encounter: 229 lb. BP: 130/90 Patient's last menstrual period was 08/17/2024. ASSESSMENT & PLAN ICD-10-CM 1. Third trimester ([facility]) Z34.93 POCT urinalysis dipstick manually resulted 2. 37 weeks gestation of ([facility]) Z3A.37 Return OB: Patient presents today [...] of: ROB Rosenbaum documented in this encounter [facility] 05-01-2025 History of Presen t illness Narrative Reason for Appointment: Patient ID: Rosanne Belcher is a 24 y.o. female who presents for No chief complaint on file. Patient presents today for Return OB appointment. MEDICATIONS Current Outpatient Medications Medication Instructions Alcohol Swabs (Alcohol Prep Pad) 70 % pads 1 Pad, Topical, Daily, Use four times daily to check FSBS. Blood Glucose Monitoring Suppl ([employer] Glucometer) w/Device kit 1 kit, Does not [...] nursing note reviewed. Exam conducted with a bleacher pulp present. Vitals: There is no height or weight on file to calculate BMI. BP: 130/82 Patient's last menstrual period was 08/17/2024. ASSESSMENT & PLAN ICD-10-CM 1. 36 weeks gestation of ([facility]) Z3A.36 POCT urinalysis dipstick manually resulted 2. Third trimester ([facility]) Z34.93 POCT urinalysis dipstick manually resulted [...] Andres Howell DO documented in this encounter [facility] 04-19-2025 History of Presen t illness Narrative [...] PLAN ICD-10-CM 1. 34 weeks gestation of ([facility]) Z3A.34 POCT urinalysis dipstick manually resulted 2. Third trimester ([facility]) Z34.93 POCT urinalysis dipstick manually resulted Return [...] of: ROB Rosenbaum documented in this encounter [facility] 03-21-2025 History of Presen t illness Narrative Reason for Appointment: Patient ID: Rosanne Belcher is a 24 y.o. female who presents for Routine Visit Patient presents today for Return OB appointment. MEDICATIONS Current Outpatient Medications Medication Instructions Alcohol Swabs (Alcohol Prep Pad) 70 % pads 1 Pad, Topical, Daily, Use four times daily to check FSBS. Blood Glucose Monitoring Suppl ([employer] Glucometer) w/Device kit 1 kit, Does not [...] nursing note reviewed. Exam conducted with a bleacher pulp present. Vitals: There is no height or weight on file to calculate BMI. BP: Patient's last menstrual period was 08/17/2024. ASSESSMENT & PLAN ICD-10-CM 1. Third trimester ([facility]) Z34.93 POCT urinalysis dipstick manually resulted 2. 30 weeks gestation of ([facility]) Z3A.30 Return OB: Patient presents today for [...] Kamila Crooks NP documented in this encounter [facility] 03-07-2025 History of Presen t illness Narrative [...] nursing note reviewed. Exam conducted with a bleacher pulp present. Vitals: There is no height or [...] Andres Howell DO documented in this encounter [facility] 02-21-2025 History of Presen t illness Narrative Reason for Appointment: Patient ID: Rosanne Belcher is a 24 y.o. female who presents for Routine Visit Patient presents today for Return OB appointment. MEDICATIONS Current Outpatient Medications Medication Instructions Alcohol Swabs (Alcohol Prep Pad) 70 % pads 1 Pad, Topical, Daily, Use four times daily to check FSBS. Blood Glucose Monitoring Suppl ([employer] Glucometer) w/Device kit 1 kit, Does not [...] nursing note reviewed. Exam conducted with a bleacher pulp present. Vitals: There is no height or [...] Sera Mckeon PA-C documented in this encounter [facility] 01-23-2025 History of Presen t illness Narrative [...] Felisha Espinoza LPN documented in this encounter [facility] 12-26-2024 History of Presen t illness Narrative [...] Andres Howell DO documented in this encounter [facility] 11-27-2024 History of Presen t illness Narrative [...] nursing note reviewed. Exam conducted with a bleacher pulp present. Vitals: There is no height or [...] Andres Howell DO documented in this encounter [facility] 10-26-2024 History of Presen t illness Narrative [...] or undercooked meat, and stay away from [facility]. Patient has also been advised to not [...] Mervat Carrera MA documented in this encounter [facility] 07-28-2021 Note DISCHARGE SUMMARY Discharge Date: 07-30-21 [...] Tylenol, any abdominal pain unrelieved with narcotics. [facility] Signed and Approved by: DR ANDRES HOWELL . 08/05/2021 16:10:00 [facility] 07-28-2021 Note OPERATIVE NOTE OPERATION DATE: 07-28-21 ANESTHETIC:Spinal with Duramorph. BAR SUPERVISOR:ADRIANA Rodriguez PREOPERATIVE DIAGNOSIS: 1. Intrauterine at 39 [...] to the Recovery Room in stable condition. [facility] Signed and Approved by: DR ANDRES HOWELL . 07/28/2021 18:54:00 [facility] Evaluation note Diagnosis Missed menses , unspecified gestational age Encounter for supervision of normal first in first trimester [facility] Diagnosis 13 weeks gestation of [...] for thyroid disorder [facility] [...] content) DATE CREATED AUTHOR 01/01/2022 [facility] DATE CREATED AUTHOR AUTHOR'S ORGANIZ ATION 05/09/2025 [facility] EPIC Reason for Visit (unrecogniz ed section and content) Reason Comments Amenorrhea Reason Comments Routine Visit Care Teams (unrecognized sec tion and content) Emblem Fuser Tender Relationship Specialty Start Date End Date Shilpi Blanton MD [address] [place] [phone] PCP - General Family Medicine 10/26/24 Emblem Fuser Tender Relationship Specialty Start Date End Date Shilpi Blanton MD [address] [place] [phone] PCP - General Family Medicine 10/26/24 Emblem Fuser Tender Relationship Specialty Start Date End Date Shilpi Blanton MD [address] [place] [facility] [phone] PCP - General Family Medicine 10/26/24 Emblem Fuser Tender Relationship Specialty Start Date End Date Shilpi Blanton MD [address] [place] [phone] PCP - General Family Medicine 10/26/24 Emblem Fuser Tender Relationship Specialty Start Date End Date Shilpi Blanton MD [address] [place] [facility] [address] PCP - General Family Medicine 10/26/24 Emblem Fuser Tender Relationship Specialty Start Date End Date Shilpi Blanton MD PCP - General Family Medicine 10/26/24 Emblem Fuser Tender Relationship Specialty Start Date End Date Shilpi Blanton MD PCP - General Family Medicine 10/26/24 Emblem Fuser Tender Relationship Specialty Start Date End Date Shilpi Blanton MD PCP - General Family Medicine 10/26/24 Emblem Fuser Tender Relationship Specialty Start Date End Date Shilpi Blanton MD PCP - General Family Medicine 10/26/24 Emblem Fuser Tender Relationship Specialty Start Date End Date Shilpi Blanton MD [address] [place] [phone] PCP - General Family Medicine 10/26/24 Emblem Fuser Tender Relationship Specialty Start Date End Date Shilpi Blanton MD [address] [facility] [place] [place] [phone] PCP - General Family Medicine 10/26/24 Emblem Fuser Tender Relationship Specialty Start Date End Date Shilpi Blanton MD [address] [place] [address] PCP - General Family Medicine 10/26/24 Emblem Fuser Tender Relationship Specialty Start Date End Date Shilpi Blanton MD [address] [place] [address] PCP - General Family Medicine 10/26/24 Emblem Fuser Tender Relationship Specialty Start Date End Date Shilpi Blanton MD [address] [place] [address] PCP - General Family Medicine 10/26/24 Emblem Fuser Tender Relationship Specialty Start Date End Date Shilpi Blanton MD [address] [place] [address] PCP - General Family Medicine 10/26/24 FOR [...] BE BASED ON THE PRIMARY CLINICAL RECORDS. [email or web address] [facility]. provides no warranty or guarantee of the accuracy or completeness of information in this document.
[2025-05-11 10:04] LABS: Total Protein Urine Random 6.3 mg/dL (<=11.9)
[2025-05-11 10:09] LABS: Total Volume 24 Hour Urine 2500 mL/24hr
== END 2025-05-11 08:35 | disposition home or self-care (01) ==
LOC: LAB 08:34
PROVIDERS: PCP Family Medicine; Visit Provider Physician Assistant
DX: O13.9 Gestational [pregnancy-induced] hypertension without significant proteinuria, unspecified trimester (principal)
CPT/HCPCS: 84156

== ENCOUNTER 2025-05-12 12:56 | Outpatient (OUT) | payer MEDICAID, SELFPAY ==
--- OUTSIDE RECORDS SUMMARY | 2025-05-01 09:10 | XMS_ITS | Encounter Summary ---
Author Organization [facility] Address [address] [place] [address] Care Team Providers Care Card Painter Name Role Phone Shilpi Alegria MD Primary Care Provider [phone] Encounter Details Date Type Department Care Team (Late st Contact Info) Description 05/01/2025 9:10 AM EDT Routine [facility] [address] [facility] [place] [phone] Jim Howell DO [address] [facility] [address] Devin [place], [facility]11 36 weeks gestation of ([facility]); Third trimester ([facility]); H/O section Social History Tobacco Use [...] to check FSBS. Blood Glucose Monitoring Suppl ([employer] Glucometer) w/Device kit 1 kit, Does not [...] nursing note reviewed. Exam conducted with a sports marketing coordinator present. Vitals: There is no height or weight on file to calculate BMI. BP: 130/82 Patient's last menstrual period was 08/17/2024. ASSESSMENT & PLAN ICD-10-CM 1. 36 weeks gestation of ([facility]) Z3A.36 POCT urinalysis dipstick manually resulted 2. Third trimester ([facility]) Z34.93 POCT urinalysis dipstick manually resulted [...] by Tram Dunbar LPN on behalf of: Jim Howell DO documented in this encounter Plan of Treatment Upcoming Encounters Date Type Department Care Team (Late st Contact Info) Description 05/14/2025 8:30 AM EDT Routine [facility] [address] [facility] [place] [place] [phone] Jim Howell DO [address] [place] [address] 05/17/2025 8:00 AM EDT Ancillary Procedure [facility] [address] [place] [phone] documented as of this encounter Procedures Procedure Name Priority Date/Time Associated Diagnosis Comments CULTURE, GROUP B STREP WITH SUSCEPTIBLITY Routine 05/01/2025 10:00 AM EDT Third trimester ([facility]) POCT URINALYSIS DIPSTICK Routine 05/01/2025 9:26 AM EDT 36 weeks gestation of ([facility]) Third trimester ([facility]) documented in this encounter Results * CULTURE, GROUP B STREP WITH SUSCEPTIBLITY (05/01/2025 10:00 AM EDT) Swab 05/01/2025 10:0 0 AM EDT Jim Howell DO LAB BLOOD ORDERABLES Final Resul t EXTERNAL LAB * POCT urinalysis dipstick manually resulted (05/01/2025 [...] Visit Diagnoses Diagnosis 36 weeks gestation of ([facility]) Third trimester ([facility]) state, incidental H/O section documented in this encounter Care Teams Card Painter Relationship Specialty Start Date End Date Shilpi Alegria MD [address] [place] [address] PCP - General Family Medicine 10/26/24 documented as of this encounter
--- OUTSIDE RECORDS SUMMARY | 2025-05-08 11:20 | XMS_ITS | Encounter Summary ---
Author Organization [facility] Address [address] [place] [address] Care Team Providers Care Geriatric Nurse Assistant Name Role Phone Shilpi Alegria MD Primary Care Provider [phone] Reason for Visit * Reason Comments Routine Visit Encounter Details Date Type Department Care Team (Late st Contact Info) Description 05/08/2025 11:20 AM EDT Routine ANA [place] [facility] [address] [facility] [place] [address] Sera Osborne PA [address] [facility] [place] [place] [address] Third trimester ([facility]); 37 weeks gestation of ([facility]); induced hypertension, antepartum ([facility]) Social History Tobacco Use Types Packs/Day Years [...] Sign Reading Time Taken Comments Blood Pressure 130/90 05/08/2025 11:55 AM EDT Pulse - - Temperature - - Respiratory Rate - - Oxygen Saturation - - Inhaled Oxygen Concentration - - Weight 104 kg (229 lb) 05/08/2025 11:55 AM EDT Height 157.5 cm (5' 2 ) 05/08/2025 12:00 PM EDT Body Mass Index 41.88 05/08/2025 11:55 AM EDT documented in this encounter Progress Notes * ROB Rosenbaum - 05/08/2025 11:20 AM EDT Reason for Appointment: Patient ID: Rosanne Choudhary is a 24 y.o. female who presents for Routine Visit Patient presents today for Return OB appointment. MEDICATIONS Current Outpatient Medications Medication Instructions Alcohol Swabs (Alcohol Prep Pad) 70 % pads 1 Pad, Topical, Daily, Use four times daily to check FSBS. Blood Glucose Monitoring Suppl (D-[employer] Glucometer) w/Device kit 1 kit, Does not [...] Objective: Physical Exam Constitutional: Appearance: Normal appearance. Genitourinary: Right Adnexa: not tender and no mass present. Left Adnexa: not tender and no mass present. No cervical discharge. Breasts: Breasts are soft. Right: Normal. Left: Normal. HENT: Head: Normocephalic. Nose: Nose normal. Mouth/Throat: Mouth: Mucous membranes are moist. Cardiovascular: Rate and Rhythm: Normal rate. Pulmonary: Effort: Pulmonary effort is normal. Abdominal: General: Bowel sounds are normal. Palpations: Abdomen is soft. Musculoskeletal: General: Normal range of motion. Cervical back: Normal range of motion. Neurological: General: No focal deficit present. Mental Status: She is alert. Skin: General: Skin is warm and dry. Psychiatric: Mood and Affect: Mood normal. Vitals and nursing note reviewed. Exam conducted with a chiropractic physician present. Vitals: Estimated body mass index is 41.88 kg/m?? as calculated from the following: Height as of this encounter: 5' 2 . Weight as of this encounter: 229 lb. BP: 130/90 Patient's last menstrual period was 08/17/2024. ASSESSMENT & PLAN ICD-10-CM 1. Third trimester ([facility]) Z34.93 POCT urinalysis dipstick manually resulted 2. 37 weeks gestation of ([facility]) Z3A.37 Return OB: Patient presents today for a routine obstetrics appointment. Patient is currently 37w0d . Patient states she is doing well but has complaints of being tired due to current . Patient also complains of continued headaches since last weeks visit. Pt is having vaginal pressure and states she feels the baby really low and some contractions. Patient is a C/S however, would like to be checked to see if she is dilated. Patient has verbalizes frequent movement. labor precautions was discussed/given and patient was instructed to perform kick counts three times a day. BP minimally elevated today and patient states mild headaches. Suggested for patient to go to [facility] for PIH evaluation. Pt states she does need to get home, reasons to go to hospital were discussed. Orders for NST/Bpp given as well as PIH lab work Orders Placed This Encounter Procedures POCT urinalysis dipstick manually resulted Follow Up: Patient is to return to office in 1 week for routine OB appointment. Documented by Alison King MA on behalf of: ROB Rosenbaum documented in this encounter Plan of Treatment Upcoming Encounters Date Type Department Care Team (Late st Contact Info) Description 05/14/2025 8:30 AM EDT Routine [facility] R[facility]LED[facility] [address] [place] [address] Jim Howell DO [address] [place], [place] [phone] 05/17/2025 8:00 AM EDT Ancillary Procedure [facility] R[facility]LEDGE [address] [place] [address] Scheduled Orders Name Type Priority Associated Diagnoses Orde r Schedule Creatinine Lab Routine induced hypertension, antepartum ([facility]) Expected: 05/08/2025 (Approximate), Expires: 05/08/2026 Protein, urine, 24 hour Lab Routine induced hypertension, antepartum ([facility]) Expected: 05/08/2025 (Approximate), Expires: 05/08/2026 Pt and ptt Lab Routine induced hypertension, antepartum ([facility]) Expected: 05/08/2025, Expires: 05/08/2026 CBC and differential Lab Routine induced hypertension, antepartum ([facility]) Expected: 05/08/2025 (Approximate), Expires: 05/08/2026 Uric acid Lab Routine induced hypertension, antepartum ([facility]) Expected: 05/08/2025 (Approximate), Expires: 05/08/2026 Lactate dehydrogenase Lab Routine induced hypertension, antepartum ([facility]) Expected: 05/08/2025, Expires: 05/08/2026 ALT Lab Routine induced hypertension, antepartum ([facility]) Expected: 05/08/2025 (Approximate), Expires: 05/08/2026 AST Lab Routine induced hypertension, antepartum ([facility]) Expected: 05/08/2025 (Approximate), Expires: 05/08/2026 BUN Lab Routine induced hypertension, antepartum ([facility]) Expected: 05/08/2025, Expires: 05/08/2026 US biophysical profile w non stress test Imaging Routine induced hypertension, antepartum ([facility]) Expected: 05/08/2025 (Approximate), Expires: 11/08/2025 documented as of this encounter Procedures Procedure Name Priority Date/Time Associated Diagnosis Comments POCT URINALYSIS DIPSTICK Routine 05/08/2025 12:02 PM EDT Third trimester ([facility]) documented in this encounter Results * POCT urinalysis dipstick manually resulted (05/08/2025 12:02 PM EDT) Color, UA Yellow Clarity, UA [...] Nitrite, UA Negative Negative - Positive Urine 05/08/2025 12:0 2 PM EDT Sera RIVAS POINT OF CARE TEST ENTER/EDIT OR DERABLES Final Result documented in this encounter Visit Diagnoses Diagnosis Third trimester ([facility]) state, incidental 37 weeks gestation of ([facility]) induced hypertension, antepartum ([facility]) Transient hypertension of , antepartum documented in this encounter Care Teams Geriatric Nurse Assistant Relationship Specialty Start Date End Date Shilpi Alegria MD [address] [place] [address] PCP - General Family Medicine 10/26/24 documented as of this encounter
--- OUTSIDE RECORDS SUMMARY | 2025-05-12 12:59 | XMS_ITS | Encounter Summary ---
Author Organization [facility] Address [address] [place] [address] Care Team Providers Care Sales Order Administrator Name Role Phone Shilpi Alegria MD Primary Care Provider [phone] Encounter Details Date Type Department Care Team (Late Contact Info) Description 05/01/2025 Bamboo flowsheet [facility] [address] [place] [address] [place] [address] Jim Howell DO [facility] [address] [place], [place] [address] Social History Tobacco Use Types Packs/Day Years [...] 05/14/2025 8:30 AM EDT Routine [facility] [address] [place], [place] [address] [phone] Jim Howell DO [address] [place], [facility]11 05/17/2025 8:00 AM EDT Ancillary Procedure [facility] [place] [address] documented as of this encounter Visit Diagnoses Not on filedocumented in this encounter Care Teams Sales Order Administrator Relationship Specialty Start Date End Date Shilpi Alegria MD [address] [place] [address] PCP - General Family Medicine 10/26/24 documented as of this encounter
--- OUTSIDE RECORDS SUMMARY | 2025-05-12 12:59 | XMS_ITS | Clinical Summary ---
Author Organization [facility] Address [address] [place] [address] Phone Care Team Providers Care Specialist Icu Name Role Phone Jaxon Alvarenga MD Primary Care Provider Shalonda vailable Social History Tobacco Use Types Packs/Day Years Used Date Smoking Tobacco: Never Assessed Comments Unknown Sex and Gender Information Value Date Recorded Sex Assigned at Not on file Legal Sex Female 12:29 AM EST Gender Identity Not on file Sexual Orientation Not on file Plan of Treatment Not on file Care Teams Specialist Icu Relationship Specialty Start Date End Date Jaxon Alvarenga MD Retired From Practice Retired From Practice PCP - General 02/02/06
--- OUTSIDE RECORDS SUMMARY | 2025-05-12 12:59 | XMS_ITS | Encounter Summary ---
Author Organization [facility] Address [address] [place] [address] Care Team Providers Care Buckle Inspector Name Role Phone Shilpi Alegria MD Primary Care Provider [phone] Encounter Details Date Type Department Care Team (Late Contact Info) Description 05/08/2025 Bamboo flowsheet [facility] [address] [place] [address] [place] [address] Sera Osborne PA [address] [facility] [address] [place], [place] [address] Social History Tobacco Use Types Packs/Day Years [...] 05/14/2025 8:30 AM EDT Routine [facility] [address] [place] [address] [place] [address] Jim Howell DO [address] [facility] [address] [place], [facility] 05/17/2025 8:00 AM EDT Ancillary Procedure [facility] [address] [place] [address] [place] [address] documented as of this encounter Visit Diagnoses Not on filedocumented in this encounter Care Teams Buckle Inspector Relationship Specialty Start Date End Date Shilpi Alegria MD [address] [place] [phone] PCP - General Family Medicine 10/26/24 documented as of this encounter
--- OUTSIDE RECORDS SUMMARY | 2025-05-12 12:59 | XMS_ITS | Encounter Summary ---
Author Organization [facility] Address [address] [place] [address] Care Team Providers Care Thaw Shed Heater Tender Name Role Phone Shilpi Alegria MD Primary Care Provider [phone] Encounter Details Date Type Department Care Team (Late Contact Info) Description 11/24/2024 Abstract [facility] [place] [address] Jim Howell DO [address], [place] [address] Social History Tobacco Use Types Packs/Day Years [...] 05/14/2025 8:30 AM EDT Routine [facility] [place] [address] Jim Howell DO [address], [facility]11 05/17/2025 8:00 AM EDT Ancillary Procedure [facility] [place] [address] documented as of this encounter Visit Diagnoses Not on filedocumented in this encounter Care Teams Thaw Shed Heater Tender Relationship Specialty Start Date End Date Shilpi Alegria MD [address] [place] [phone] PCP - General Family Medicine 10/26/24 documented as of this encounter
--- OUTSIDE RECORDS SUMMARY | 2025-05-12 12:59 | XMS_ITS | Encounter Summary ---
Author Organization [facility] Address [address] [place] [address] Care Team Providers Care Diesel Scoop Operator Name Role Phone Shilpi Alegria MD Primary Care Provider [phone] Encounter Details Date Type Department Care Team [...] Routine [facility] [address] [place] [phone] Jim Howell DO [address] [place] [address] 05/17/2025 8:00 AM EDT Ancillary Procedure [facility] [address] [facility] [address] documented as of this encounter Visit Diagnoses Not on filedocumented in this encounter Care Teams Diesel Scoop Operator Relationship Specialty Start Date End Date Shilpi Alegria MD [address] [place] [phone] PCP - General Family Medicine 10/26/24 documented as of this encounter
--- OUTSIDE RECORDS SUMMARY | 2025-05-12 12:59 | XMS_ITS | Encounter Summary ---
Author Organization [facility] Address [address] [place] [address] Care Team Providers Care Office Services Specialist Name Role Phone Shilpi Alegria MD Primary Care Provider [phone] Encounter Details Date Type Department Care Team (Late Contact Info) Description 02/23/2025 Abstract [facility] [place] [address] Jim Howell DO [address], [place] [address] Social History Tobacco Use Types Packs/Day Years [...] 05/14/2025 8:30 AM EDT Routine [facility] [place] [address] Jim Howell DO [address] [place], [facility]11 05/17/2025 8:00 AM EDT Ancillary Procedure [facility] [place] [address] documented as of this encounter Visit Diagnoses Not on filedocumented in this encounter Care Teams Office Services Specialist Relationship Specialty Start Date End Date Shilpi Alegria MD [address] [place] [phone] PCP - General Family Medicine 10/26/24 documented as of this encounter
--- OUTSIDE RECORDS SUMMARY | 2025-05-12 12:59 | XMS_ITS | Clinical Summary ---
Author Organization [facility] Address [address] [place] [address] Care Team Providers Care Psychologist Military Personnel Name Role Phone Shilpi Alegria MD Primary Care Provider [phone] Allergies Active Allergy Reactions Criticality Noted Date Comments Cefdinir 10/26/2024 Other 10/26/2024 Suprex Medications Alcohol Swabs (Alcohol Prep Pad) 70 % padsIndications: Gestational diabetes mellitus (GDM), antepartum, gestational diabetes method of control unspecified ([facility]),Elevat ed glucose tolerance test Apply 1 Pad topically Daily Use four times daily to check FSBS. 150 each 3 5 Active Blood Glucose Monitoring Suppl (D-Care Glucometer) w/Device kitIndications:G estational diabetes mellitus (GDM), antepartum, gestational diabetes method of control unspecified ([facility]),Elevat ed glucose tolerance test 1 kit Daily Use four times daily to check FSBS. In the morning prior to breakfast & 1 hour after each meal for a total of 4times daily. 1 kit 5 12/27/19 26 Active Encounters Date Type Department Care Team Description 05/11/2025 Clinisync Result Encounter NOMS External Department Unsolicited Sera Mckeon PA 05/10/2025 Clinisync Result Encounter NOMS External Department Unsolicited Sera Mckeon PA 05/09/2025 Clinisync Result Encounter NOMS External Department Unsolicited Sera Mckeon PA 05/08/2025 11:20 AM EDT Routine [facility] Stacia RUTLEDGE [address] [place] [address] [place] [address] Sera Mckeon PA Third trimester ([facility]); 37 weeks gestation of ([facility]); induced hypertension, antepartum ([facility]) 05/08/2025 Bamboo flowsheet [facility] Stacia Nina [facility] [place] [address] Sera Mckeon PA 05/07/2025 Travel 05/01/2025 9:10 AM EDT Routine [facility] Stacia Nina [facility] [place] [address] Jim Howell, 36 weeks gestation of ([facility]); Third trimester ([facility]); H/O section 05/01/2025 Bamboo flowsheet [facility] Stacia Nina [facility] [address] Jim Howell DO 04/30/2025 Travel 04/19/2025 8:30 AM EDT Routine [facility] Stacia Nina [facility] [place] [address] Sera Mckeon PA 34 weeks gestation of ([facility]); Third trimester ([facility]) 04/19/2025 8:00 AM EDT Ancillary Procedure [facility] Stacia Nina [facility] [address] Third trimester ([facility]); 30 weeks gestation of ([facility]); Elevated glucose tolerance test 04/18/2025 Travel 03/21/2025 8:30 AM EDT Routine [facility]OM[facility] Stacia Nina [facility] [place] [address] Kamila Crooks NP Third trimester ([facility]) (Primary Dx); 30 weeks gestation of ([facility]); Elevated glucose tolerance test 03/21/2025 Bamboo flowsheet [facility] Stacia Nina [facility] [address] Kamila Crooks NP 03/14/2025 Clinisync Result Encounter NOMS External Department Unsolicited Sera Mckeon PA 03/07/2025 3:20 PM EDT Routine [facility]OM[facility] Stacia BOWERSN [address] [place] [address] Jim Howell, size inconsistent with dates ([facility]) (Primary Dx); 28 weeks gestation of ([facility]); Third trimester ([facility]) 03/07/2025 Clinisync Result Encounter NOMS External Department Unsolicited Jim Howell, 03/07/2025 Bamboo flowsheet [facility] Stacia LAMGYN [address] [facility] [place] [address] Jim Howell, 03/06/2025 Travel 02/23/2025 Abstract [facility] Stacia LAMGYN [address] [place] [address] Jim Howell, 02/21/2025 2:40 PM [place] [address] Jim Howell, Second trimester ([facility]); 26 weeks gestation of ([facility]); Diabetes mellitus screening 02/21/2025 Bamboo flowsheet NOM[facility] Stacia OBGYN [address] [place] [address] Jim Howell, 02/21/2025 Travel from Last 3 [...] AM EDT Routine NOM[facility] Stacia OBGYN [address] [facility] [place] [address] Jim Howell, [address] [facility] [place] [address] 05/17/2025 8:00 AM EDT Ancillary Procedure [facility] Stacia OBGYN [address] [place] [address] Procedures Procedure Name Priority Date/Time Associated Diagnosis Comments TBH TOTAL PROTEIN 24 HOUR URINE Routine 05/11/2025 7:00 AM EDT US OB BPP W NON-STRESS 05/10/2025 9:05 [...] 05/08/2025 12:02 PM EDT Third trimester ([facility]) CULTURE, GROUP B STREP WITH SUSCEPTIBLITY Routine [...] ([facility]) from Last 3 Months Results * (ABNORMAL) TBH TOTAL PROTEIN 24 HOUR URINE (05/11/2025 7:00 AM EDT) TOTAL PROTEIN URINE RANDOM 6.3 <=11.9 mg/dL TBH TOTAL VOLUME 24 HOUR URINE 2,500 mL/24hr TBH TBH TOTAL PROTEIN 24 HOUR URINE 157.5(H) <=149.1 mg/24hr TBH 05/11/2025 7:00 AM EDT 05/11/2025 8:37 AM EDT Narrative BRYANISYNC - 05/11/2025 10:09 AM EDT Sera COCHRAN Final Result [facility] * US OB BPP W NON-STRESS (05/10/2025 9:05 AM EDT) Anatomical Region Laterality Modality Other 05/10/2025 9:05 AM EDT Narrative 05/10/2025 9:08 [place] [address] Ultrasound Report Signed Patient: ROSANNE BELCHER MR#: [id number] : 2000 Acct:[id number] Age/Sex: 24 / F ADM Date: 05/09/25 Loc: US Attending Dr: Sera Mckeon Ordering Physician: Sera Mckeon Date of Service: 05/09/25 Procedure(s): US OB BPP w non-stress Accession Number(s): [id number] cc: Sera Mckeon; Shilpi Alegria M.D. [address] [address] Patient Name: ROSANNE BELCHER MRN: [id number] date: 2000 Sex: F Assigned Patient Location: US Current Patient Location: Accession/Order Number: [id number] Exam Date: 05/10/2025 09:03 Report Date: 05/10/2025 09:05 At the request of: SERA MCKEON Procedure: US OB BPP w non-stress Biophysical profile. Reason for exam: -induced hypertension COMPARISON: None TECHNIQUE: Transabdominal imaging of the gravid uterus was obtained. FINDINGS: The general handling supervisor reports a BPP of 8 out of 8. PARIS is normal at 15.5 cm. heart rate 136 bpm. Incidental note is made of right-sided pelviectasis. US/US OB BPP w non-stress IMPRESSION: BPP 8 out of 8. Right pelviectasis. Impression dictated by: Guanaco Davenport Jr., D.O. 05/10/2025 9:05 AM Dictation Location: [place] [address] Electronically authenticated by: [id number] Y Date: 05/10/2025 09:05 Dictated By: Guanaco Davenport M.D. Signed By: 05/10/25907 DD/ 4 TD/TT: Workers Compensation Claims Analyst: Procedure Note Radiology, Radiologist, MD - 05/10/2025 [place] [address] Ultrasound Report Signed Patient: ROSANNE BELCHER EMR#: [id number] : 2000Acct:[id number] Age/Sex: 24 / FADM Date: 05/09/25 Loc: US Attending Dr: Sera Mckeon Ordering Physician: Sera Mckeon Date of Service: 05/09/25 Procedure(s): US OB BPP w non-stress Accession Number(s): [id number] cc: Sera Mckeon; Shilpi Alegria M.D. The [address] [address] Patient Name: ROSANNE BELCHER MRN: [id number] date: 2000 Sex: F Assigned Patient Location: US Current Patient Location: Accession/Order Number: [id number] Exam Date: 05/10/2025 09:03 Report Date: 05/10/2025 09:05 At the request of: SERA MCKEON Procedure: US OB BPP w non-stress Biophysical profile. Reason for exam: -induced hypertension COMPARISON: None TECHNIQUE: Transabdominal imaging of the gravid uterus was obtained. FINDINGS: The general handling supervisor reports a BPP of 8 out of 8. PARIS is normal at15.5 cm. heart rate 136 bpm. Incidental note is made of right-sided pelviectasis. US/US OB BPP w non-stress IMPRESSION: BPP 8 out of 8. Right pelviectasis. Impression dictated by: Guanaco Davenport Jr., D.O. 05/10/2025 9:05 AM Dictation Location: [place] [address] Electronically authenticated by: [id number] Y Date: 9:05 Dictated By: Guanaco Davenport M.D. Signed By:05/10/25907 DD/ 4 TD/TT: Workers Compensation Claims Analyst: Sera COCHRAN IMAGING Final Result * (ABNORMAL) TBH CREATININE (05/09/2025 3:50 PM EDT) CREATININE 0.52(L) 0.55 - 1.02 mg/dL TBH TBH EGFR-AF SAO TOMEAN >60 >=60 mL/min/1.7 3m 2 TBH TBH EGFR-NON AF SAO TOMEAN >60 >=60 mL/min/1.7 3m 2 TBH 05/09/2025 3:50 PM EDT 05/09/2025 3:50 PM EDT Narrative CLINISYNC - 05/09/2025 4:21 PM EDT Sera COCHRAN Final Result Performing Organization Address [facility] Co de Phone Number [facility] * SRMCOH PROTHROMBIN TIME INR W/O COUM (05/09/2025 3:50 PM EDT) PROTHROMBIN TIME 9.7 9.0 - 11.6 sec TBH TBH INR <0.93 TBH Comment: DESIRED INR: 2.0-3.0 CONDITIONS NOT LISTED BELOW 2.5-3.5 FOR PROSTHETIC HEART VALVE REPLACEMENT 2.5-3.5 RECURRENT THROMBOSIS 05/09/2025 3:50 PM EDT 05/09/2025 3:50 PM EDT Narrative CLINISYNC - 05/09/2025 4:14 PM EDT Sera COCHRAN Final Result CLINISYNC TBH * CCF AST (05/09/2025 3:50 PM EDT) ASPARTATE AMINO TRANSFERASE 18 15 - 37 U/L TBH 05/09/2025 3:50 PM EDT 05/09/2025 3:50 PM EDT Narrative CLINISYNC - 05/09/2025 4:21 PM EDT us Sera Kidddelmer RIVAS CLINISYNC Final Result Performing Organization Address [facility] de Phone Number CLINISYNC TBH * CCF APTT (05/09/2025 3:50 PM EDT) PARTIAL THROMBOPLASTIN TIME 25.7 22.3 - 36.2 sec TB 05/09/2025 3:50 PM EDT 05/09/2025 3:50 PM EDT Narrative CLINISYNC - 05/09/2025 4:14 PM EDT us Sera Kidddelmer RIVAS CLINISYNC Final Result Performing Organization Address [facility] Phone Number CLINISYNC TB * ALL URIC ACID (05/09/2025 3:50 PM EDT) URIC ACID 4.5 2.6 - 6.0 mg/dL TB 05/09/2025 3:50 PM EDT 05/09/2025 3:50 PM EDT Narrative CLINISYNC - 05/09/2025 4:21 PM EDT us Sera Kidddelmer RIVAS BRYANISYNC Final Result Performing Organization Address [facility] de Phone Number CLINISYNC TB * ALL LDH (05/09/2025 3:50 PM EDT) LACTATE DEHYDROGENASE 192 81 - 234 U/L TB 05/09/2025 3:50 PM EDT 05/09/2025 3:50 PM EDT Narrative CLINISYNC - 05/09/2025 4:21 PM EDT Sera ADAMSGORDOTX Final Result [facility] * (ABNORMAL) ALL CBC WITH AUTO DIFF (05/09/2025 3:50 PM EDT) Only the most recent of2 resultswithin the time period is included. TB WBC 8.1 4.0 - 11.0 10 3/uL [...] Narrative CLINISYNC - 05/09/2025 4:02 PM EDT Sera RIVAS CLINISYNC Final Result Performing Organization Address [facility]/ZIP Co de Phone Number [facility] * ALL BUN (05/09/2025 3:50 PM EDT) BLOOD UREA NITROGEN 10.0 7.0 - 18.0 mg/dL [facility] 05/09/2025 3:50 PM EDT 05/09/2025 3:50 PM EDT Narrative CLINISYTX - 05/09/2025 4:21 PM EDT Sera RIVAS CLINISYNC Final Result Performing Organization Address [facility] Co de Phone Number [facility] * POCT urinalysis dipstick manually resulted (05/08/2025 [...] PM EDT Narrative 03/14/2025 3:44 [place] [address] Ultrasound Report Signed Patient: ROSANNE BELCHER MR#: [id number] : 2000 Acct:[id number] Age/Sex: 24 / F ADM Date: 03/14/25 Loc: US Attending Dr: Sera Mckeon Ordering Physician: Sera Mckeon Date of Service: 03/14/25 Procedure(s): US OB growth Accession Number(s): [id number] cc: Sera Mckeon; Shilpi Alegria M.D. [address] [address] Patient Name: ROSANNE BELCHER MRN: [id number] date: 2000 Sex: F Assigned Patient Location: US Current Patient Location: US Accession/Order Number: [id number] Exam Date: 03/14/2025 15:38 Report Date: 03/14/2025 [...] Jr., D.O. 03/14/2025 3:41 PM Dictation Location: [place] [address] Electronically authenticated by: [id number] Y Date: 03/14/2025 15:41 Dictated By: Guanaco Davenport M.D. Signed By: 03/14/25 1544 DD/ 1541 TD/TT: Workers Compensation Claims Analyst: Procedure Note Radiology, Radiologist, MD - 03/14/2025 [place] [address] Ultrasound Report Signed Patient: ROSANNE BELCHER EMR#: [id number] : 2000Acct:[id number] Age/Sex: 24 FADM Date: 03/14/25 Loc: US Attending Dr: Sera Mckeon Ordering Physician: Sera Mckeon Date of Service: 03/14/25 Procedure(s): US OB growth Accession Number(s): [id number] cc: Sera Mckeon; Shilpi Alegria M.D. The [address] [address] Patient Name: ROSANNE BELCHER MRN: [id number] date: 2000 Sex: F Assigned Patient Location: US Current Patient Location: US Accession/Order Number: [id number] Exam Date: 03/14/2025 15:38 Report Date: 03/14/2025 [...] day by anatomic measurements. Impression dictated by: Bobby Acosta Jr..Shekhar 03/14/2025 3:41 PM Dictation Location: [place] [address] Electronically authenticated by: [id number] Y Date: 5:41 Dictated By: Guanaco Davenport M.D. Signed By:03/14/25 1544 DD/ 1541 TD/TT: Workers Compensation Claims Analyst: Sera RIVAS CLIN[facility] IMAGING Final Result from Last 3 Months Care Teams Psychologist Military Personnel Relationship Specialty Start Date End Date Shilpi Alegria MD [address] [place] [address] PCP - General Family Medicine 10/26/24
--- OUTSIDE RECORDS SUMMARY | 2025-05-12 12:59 | XMS_ITS | Encounter Summary ---
Author Organization [facility] Address [address] [place] [address] Care Team Providers Care Master Automotive Glass Technician Name Role Phone Shilpi Alegria MD Primary Care Provider [phone] Encounter Details Date Type Department Care Team [...] Routine NOMMalika RUTLEDGE [address] [place] [address] Jim Howell DO [address] [place] [address] 05/17/2025 8:00 AM EDT Ancillary Procedure [facility] Stacia LAMGYN [address] [place] [address] documented as of this encounter Visit Diagnoses Not on filedocumented in this encounter Care Teams Master Automotive Glass Technician Relationship Specialty Start Date End Date Shilpi Alegria MD [address] [place] [address] PCP - General Family Medicine 10/26/24 documented as of this encounter
--- OUTSIDE RECORDS SUMMARY | 2025-05-12 12:59 | XMS_ITS | Encounter Summary ---
Author Organization [facility] Address [address] [place] [address] Care Team Providers Care Roll Bucker Name Role Phone Shilpi Alegria MD Primary Care Provider [phone] Encounter Details Date Type Department Care Team (Late st Contact Info) Description 05/10/2025 Clinisync Result Encounter NOMS External Department Unsolicited Mauricio Mckeon PA [address] [facility] [address] [place], [facility] Social History Tobacco Use Types Packs/Day Years [...] 8:30 AM EDT Routine NOMMalika RUTLEDGE [address] [place] [address] Jim Howell DO [address] [place] [address] 05/17/2025 8:00 AM EDT Ancillary Procedure [facility] Stacia RUTLEDGE [address] [place] [address] documented as of this encounter Procedures Procedure Name Priority Date/Time Associated Diagnosis Comments US OB BPP W NON-STRESS 05/10/2025 9:05 AM EDT documented in this encounter Results * US OB BPP W NON-STRESS (05/10/2025 9:05 AM EDT) Anatomical Region Laterality Modality Other 05/10/2025 9:05 AM EDT Narrative 05/10/2025 9:08 [place] [address] Ultrasound Report Signed Patient: ROSANNE CHOUDHARY MR#: [id number] : 2000 Acct:[id number] Age/Sex: 24 / F ADM Date: 05/09/25 Loc: US Attending Dr: Mauricio Mckeon Ordering Physician: Mauricio Mckeon Date of Service: 05/09/25 Procedure(s): US OB BPP w non-stress Accession Number(s): [id number] cc: Mauricio Mckeon; Shilpi Alegria M.D. The [place] [id number] Patient Name: ROSANNE CHOUDHARY MRN: [id number] date: 2000 Sex: F Assigned Patient Location: US Current Patient Location: Accession/Order Number: [id number] Exam Date: 05/10/2025 09:03 Report Date: 05/10/2025 09:05 At the request of: MAURICIO MCKEON Procedure: US OB BPP w non-stress Biophysical profile. Reason for exam: -induced hypertension COMPARISON: None TECHNIQUE: Transabdominal imaging of the gravid uterus was obtained. FINDINGS: The power sweeper operator reports a BPP of 8 out of 8. PARIS is normal at 15.5 cm. heart rate 136 bpm. Incidental note is made of right-sided pelviectasis. US/US OB BPP w non-stress IMPRESSION: BPP 8 out of 8. Right pelviectasis. Impression dictated by: Guanaco Davenport Jr., D.O. 05/10/2025 9:05 AM Dictation Location: [place] [address] Electronically authenticated by: [id number] Y Date: 05/10/2025 09:05 Dictated By: Guanaco Davenport M.D. Signed By: 05/10/2508 DD/ 4 TD/TT: Brush Cutter: Procedure Note Radiology, Radiologist, - 05/10/2025 [place] [address] Ultrasound Report Signed Patient: ROSANNE CHOUDHARY EMR#: [id number] : 2000Acct:[id number] Age/Sex: 24 / FADM Date: 05/09/25 Loc: US Attending Dr: Mauricio Mckeon Ordering Physician: Mauricio Mckeon Date of Service: 05/09/25 Procedure(s): US OB BPP w non-stress Accession Number(s): [id number] cc: Mauricio Mckeon; Shilpi Alegria M.D. The [place] [id number] Patient Name: ROSANNE CHOUDHARY MRN: [id number] date: 2000 Sex: F Assigned Patient Location: US Current Patient Location: Accession/Order Number: [id number] Exam Date: 05/10/2025 09:03 Report Date: 05/10/2025 09:05 At the request of: MAURICIO MCKEON Procedure: US OB BPP w non-stress Biophysical profile. Reason for exam: -induced hypertension COMPARISON: None TECHNIQUE: Transabdominal imaging of the gravid uterus was obtained. FINDINGS: The power sweeper operator reports a BPP of 8 out of 8. PARIS is normal at15.5 cm. heart rate 136 bpm. Incidental note is made of right-sided pelviectasis. US/US OB BPP w non-stress IMPRESSION: BPP 8 out of 8. Right pelviectasis. Impression dictated by: Guanaco Davenport Jr., D.O. 05/10/2025 9:05 AM Dictation Location: [place] [address] Electronically authenticated by: [id number] Y Date: 509:05 Dictated By: Guanaco Davenport M.D. Signed By:05/10/2508 DD/ 0905 TD/TT: Brush Cutter: us Mauricio RIVAS [facility] IMAGING Final Result documented in this encounter Visit Diagnoses Not on filedocumented in this encounter Care Teams Roll Bucker Relationship Specialty [place] [address] [place] [phone] PCP - General Family Medicine 10/26/24 documented as of this encounter
--- OUTSIDE RECORDS SUMMARY | 2025-05-12 12:59 | XMS_ITS | Encounter Summary ---
Author Organization [facility] Address [address] [place] [address] Care Team Providers Care Biology Laboratory Assistant Name Role Phone Shilpi Alegria MD Primary Care Provider [phone] Encounter Details Date Type Department Care Team (Late Contact Info) Description 11/17/2024 Abstract ANA RUTLEDGE [facility] [place] [address] Jim Howell DO [address] [place], [place] [address] Social History Tobacco Use Types Packs/Day Years [...] 05/14/2025 8:30 AM EDT Routine ANA RUTLEDGE [facility] [place] [address] Jim Howell DO [address] [place], [facility] 05/17/2025 8:00 AM EDT Ancillary Procedure ANA RUTLEDGE [facility] [place] [address] documented as of this encounter Visit Diagnoses Not on filedocumented in this encounter Care Teams Biology Laboratory Assistant Relationship Specialty Start Date End Date Shilpi Alegria MD [address] [place] [phone] PCP - General Family Medicine 10/26/24 documented as of this encounter
--- OUTSIDE RECORDS SUMMARY | 2025-05-12 12:59 | XMS_ITS | Encounter Summary ---
Author Organization [facility] Address [address] [place] [address] Care Team Providers Care Dishwasher Busser Name Role Phone Shilpi Alegria MD Primary Care Provider Encounter Details Date Type Department Care Team (Late st Contact Info) Description 05/09/2025 Clinisync Result Encounter NOMS External Department Unsolicited Sera Osborne PA [address] [facility] [address] [place], [facility]11 Social History Tobacco Use Types Packs/Day Years [...] 8:30 AM EDT Routine NOMMalika RUTLEDGE [address] [place] [address] Jim Howell DO [address] [facility] [place] [address] 05/17/2025 8:00 AM EDT Ancillary Procedure NOMMalika RUTLEDGE [address] [place] [place] [address] documented as of this encounter Procedures Procedure [...] Sera ADAMSISYSTEVAN Final Result Performing Organization Address [facility] Co de Phone Number CLINISYNC TB * CCF AST (05/09/2025 3:50 PM EDT) ASPARTATE AMINO TRANSFERASE 18 15 - 37 U/L TB 05/09/2025 3:50 PM EDT 05/09/2025 3:50 PM EDT Narrative CLINISYNC - 05/09/2025 4:21 PM EDT Sera ADAMSISYSTEVAN Final Result Performing Organization Address City/[facility]/ZIP Co de Phone Number CLINISYNC TB * ALL URIC ACID (05/09/2025 3:50 PM EDT) URIC ACID 4.5 2.6 - 6.0 mg/dL TB 05/09/2025 3:50 PM EDT 05/09/2025 3:50 PM EDT Narrative CLINISYNC - 05/09/2025 4:21 PM EDT us Sera COCHRAN Final Result Performing Organization Address [facility] de Phone Number CLINISYNC TB * (ABNORMAL) TB CREATININE (05/09/2025 3:50 PM EDT) CREATININE 0.52(L) 0.55 - 1.02 mg/dL TB TB EGFR-AF URUGUAYAN >60 >=60 mL/min/1.7 3m 2 TBH TBH EGFR-NON AF URUGUAYAN >60 >=60 mL/min/1.7 3m 2 TB 05/09/2025 3:50 PM EDT 05/09/2025 3:50 PM EDT Narrative CLINISYNC - 05/09/2025 4:21 PM EDT us Sera COCHRAN Final Result Performing Organization Address [facility] de Phone Number CLINISYNC TB * ALL BUN (05/09/2025 3:50 PM EDT) BLOOD UREA NITROGEN 10.0 7.0 - 18.0 mg/dL TB 05/09/2025 3:50 PM EDT 05/09/2025 3:50 PM EDT Narrative CLINISYNC - 05/09/2025 4:21 PM EDT Sera COCHRAN Final Result Performing Organization Address [facility] de Phone Number CLINISYNC TB * CCF APTT (05/09/2025 3:50 PM EDT) PARTIAL THROMBOPLASTIN TIME 25.7 22.3 - 36.2 sec TB 05/09/2025 3:50 PM EDT 05/09/2025 3:50 PM EDT Narrative CLINISYNC - 05/09/2025 4:14 PM EDT Sera COCHRAN Final Result Performing Organization Address [facility]/ZIP Co de Phone Number DIMAS TB * SRMCOH PROTHROMBIN TIME INR W/O COUM (05/09/2025 3:50 PM EDT) Pathologist [facility] PROTHROMBIN TIME 9.7 9.0 - 11.6 sec TB TB INR <0.93 TBH Comment: DESIRED INR: 2.0-3.0 CONDITIONS NOT LISTED BELOW 2.5-3.5 FOR PROSTHETIC HEART VALVE REPLACEMENT 2.5-3.5 RECURRENT THROMBOSIS 05/09/2025 3:50 PM EDT 05/09/2025 3:50 PM EDT Narrative CLINISYNC - 05/09/2025 4:14 PM EDT Sera COCHRAN Final Result Performing Organization Address [facility] Co de Phone Number DIMAS TB * (ABNORMAL) ALL CBC WITH AUTO DIFF (05/09/2025 3:50 PM EDT) Pathologist [facility] TBH WBC 8.1 4.0 - 11.0 10 [...] EDT us Sera RIVAS [facility] documented in this encounter Visit Diagnoses Not on filedocumented in this encounter Care Teams Dishwasher Busser Relationship Specialty Start Date End Date Shilpi Alegria MD [address] [place] [phone] PCP - General Family Medicine 10/26/24 documented as of this encounter
--- OUTSIDE RECORDS SUMMARY | 2025-05-12 12:59 | XMS_ITS | Encounter Summary ---
Author Organization [facility] Address [address] [place] [address] Care Team Providers Care Airplane Inspector Name Role Phone Shilpi Alegria MD Primary Care Provider [phone] Encounter Details Date Type Department Care Team (Late st Contact Info) Description 05/11/2025 Clinisync Result Encounter [facility] External Department Unsolicited Sera Osborne PA [address] [facility] [address] [place], [facility] Social History Tobacco Use Types Packs/Day [...] 05/14/2025 8:30 AM EDT Routine [facility] [address] [place] [address] [place] [phone] Jim Howell DO [address] [place] [address] 05/17/2025 8:00 AM EDT Ancillary Procedure [facility] [address] [facility] [place] [phone] documented as of this encounter Procedures Procedure Name Priority Date/Time Associated Diagnosis Comments [facility] TOTAL PROTEIN 24 HOUR URINE Routine 05/11/2025 7:00 AM EDT documented in this encounter Results * (ABNORMAL) [facility] TOTAL PROTEIN 24 HOUR URINE (05/11/2025 7:00 AM EDT) TOTAL PROTEIN URINE RANDOM 6.3 <=11.9 mg/dL [facility] TOTAL VOLUME 24 HOUR URINE 2,500 mL/24hr TBH TBH TOTAL PROTEIN 24 HOUR URINE 157.5(H) <=149.1 mg/24hr [facility] 05/11/2025 7:00 AM EDT 05/11/2025 8:37 AM EDT Narrative [facility] - 05/11/2025 10:09 AM EDT us Sera [facility] documented in this encounter Visit Diagnoses Not on filedocumented in this encounter Care Teams Airplane Inspector Relationship Specialty Start Date End Date Shilpi Alegria MD [address] [place] [phone] PCP - General Family Medicine 10/26/24 documented as of this encounter
--- OUTSIDE RECORDS SUMMARY | 2025-05-12 13:00 | XMS_ITS | CCD ---
Author Organization 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 Name Role Phone DANTE, DR CAMPOS Admitting [...] Unavailable BLANTON, DR SHILPI Rios Admitting Unavailable [place], DR DARCY Mondragon Consulting Unavailable FRANNY, DR [...] Attending Unavailable DANTE, DR CAMPOS Admitting Unavailable LBANTON, DR SHILPI Rios Primary Care Unavailable DANTE, [...] Facility (1 source) cefdinir Drug Allergy [facility] Repository (2 sources) Cephalosporins (Antibiotic) Drug allergy (disorder) [facility] Repository (1 source) Dextrothyroxine Drug Allergy [facility] Repository (20 sources) cefdinir Drug Allergy 5 [facility] (20 sources) Other Propensity to adverse reactions 5 [facility] Medications Current Medications Medication Drug Class(es) Dates [...] End: 12-26-2025 Blood Glucose Monitoring Sup pl ([employer] Glucometer) w/Device kit Indications: Gestational diabetes mellitus [...] antepartum, gestational diabetes method of control unspecified ([facility]) , Elevated glucose tolerance test Apply 1 [...] Test Name Value Interpretation Reference Range Facility [facility] TOTAL PROTEIN 24 HOUR UR INEon 05-11-2025 Interpretation and review of laboratory results Abnormal [facility] Protein (U) [Mass/Vol] 6.3 mg/dL [facility] - 11.9 mg/dL [facility] TB TOTAL PROTEIN 24 HOUR URINE 157.5 High [facility] TOTAL VOLUME 24 HOUR URINE 2500 mL/24hr [facility] US OB BPP W NON-STRESS on 05-10-[address] [address] Ultrasound Report Signed Patient: ROSANNE BELCHER MR#: [id number] : 2000 Acct:[id number] Age/Sex: 24 / F ADM Date: 05/09/25 Loc: US Attending Dr: Sera Mckeon Ordering Physician: Sera Mckeon Date of Service: 05/09/25 Procedure(s): US OB BPP w non-stress Accession Number(s): [id number] cc: Sera Mckeon; Shilpi Blanton M.D. The [address] [address] Patient Name: ROSANNE BELCHER MRN: [facility]:[id number] date: 2000 Sex: F Assigned Patient Location: US Current Patient Location: Accession/Order Number: [id number] Exam Date: 05/10/2025 09:03 Report Date: 05/10/2025 09:05 At the request of: SERA MCKEON Procedure: US OB BPP w non-stress Biophysical profile. Reason for exam: -induced hypertension COMPARISON: None TECHNIQUE: Transabdominal imaging of the gravid uterus was obtained. FINDINGS: The personal lines appraiser reports a BPP of 8 out of 8. [place] is normal at 15.5 cm. heart rate 136 bpm. Incidental note is made of right-sided pelviectasis. US/US OB BPP w non-stress IMPRESSION: BPP 8 out of 8. Right pelviectasis. Impression dictated by: Guanaco Davenport Jr., D.O. 05/10/2025 9:05 AM Dictation Location: [place] [address] Electronically authenticated by: [id number] Y Date: 05/10/2025 09:05 Dictated By: Guanaco Davenport M.D. Signed By: 05/10/25907 DD/ 4 TD/TT: Machine Molder Squeeze: [facility] Radiology, Radiologist, MD - 05/10/[address] [address] Ultrasound Report Signed Patient: ROSANNE BELCHER MR#: [id number] : 2000 Acct:[id number] Age/Sex: 24 / F ADM Date: 05/09/25 Loc: US Attending Dr: Sera Mckeon Ordering Physician: Sera Mckeon Date of Service: 05/09/25 Procedure(s): US OB BPP w non-stress Accession Number(s): [id number] cc: Sera Mckeon; Shilpi Blanton M.D. The [place] [id number] Patient Name: ROSANNE BELCHER MRN: [id number] date: 2000 Sex: F Assigned Patient Location: US Current Patient Location: Accession/Order Number: [id number] Exam Date: 05/10/2025 09:03 Report Date: 05/10/2025 09:05 At the request of: SERA MCKEON Procedure: US OB BPP w non-stress Biophysical profile. Reason for exam: -induced hypertension COMPARISON: None TECHNIQUE: Transabdominal imaging of the gravid uterus was obtained. FINDINGS: The personal lines appraiser reports a BPP of 8 out of 8. [place] is normal at 15.5 cm. heart rate 136 bpm. Incidental note is made of right-sided pelviectasis. US/US OB BPP w non-stress IMPRESSION: BPP 8 out of 8. Right pelviectasis. Impression dictated by: Guanaco Davenport Jr., D.O. 05/10/2025 9:05 AM Dictation Location: [place] [address] Electronically authenticated by: [id number] Y Date: 05/10/2025 09:05 Dictated By: Guanaco Davenport M.D. Signed By: 05/10/25907 DD/ 4 TD/TT: Machine Molder Squeeze: [facility] Radiology Study observation (narrative) [facility] US OB BPP W NON-STRESS Ordered By: Radiologist Radiology on 05-10-2025 [facility] Work Phone: ALL CBC WITH AUTO DIFFon BASOPHILS ABSOLUTE AUTO 0 [facility] Basophils/100 WBC (Bld) 0.1 % Low 0.2 - 2.0 % [facility] Eosinophils/100 WBC (Bld) 0.9 % 0.9 - 7.0 % [facility] Erythrocyte distribution width (RBC) [Ratio] 13.9 % 11.0 - 15.0 % [facility] Hematocrit (Bld) [Volume fraction] 31.3 % Low 36.0 - 48.0 % [facility] Hemoglobin (Bld) [Mass/Vol] 10.1 g/dL Low 12.0 - 16.0 g/dL [facility] IMMATURE GRANULOCYTES ABS AUTO 0.01 [facility] Immature granulocytes/100 WBC (Bld) 0.1 % 0.0 - 0.5 % [facility] Interpretation and review of laboratory results Abnormal [facility] LYMPHOCYTES ABSOLUTE AUTO 1.6 [facility] Lymphocytes/100 WBC (Bld) 19.5 % Low 20.5 - 60.0 % [facility] MCH (RBC) [Entitic mass] 24.5 pg Low 26.7 - 34.0 pg [facility] MCHC (RBC) [Mass/Vol] 32.3 g/dL 29.9 - 35.2 g/dL [facility] MCV (RBC) [Entitic vol] 75.8 fL Low 81.0 - 99.0 fL [facility] MONOCYTES ABSOLUTE AUTO 0.7 [facility] Monocytes/100 WBC (Bld) 8.3 % 1.7 - 12.0 % [facility] NEUTROPHILS ABSOLUTE AUTO 5.8 [facility] Neutrophils/100 WBC (Bld) 71.1 % 43.0 - 75.0 % [facility] Platelet mean volume (Bld) [Entitic vol] 10.3 fL 9.5 - 13.5 fL [facility] EO # 0.1 [facility] PLT 264 [facility] RBC 4.13 Low [facility] WBC 8.1 [facility] Urinalysis macro (dipstick) panel (U)on 05-08-2025 Bilirubin, UA Negative Negative - 4(70) +++ mg/dL [facility] Blood, UA Negative Negative - 50 Willard/mcL [facility] Clarity, UA Clear [facility] Color, UA Yellow [facility] Glucose, UA Negative Negative - 1999(110) ++++ mg/dL [facility] Interpretation and review of laboratory results Normal [facility] Ketones, UA Negative Negative - 160(16) ++++ mg/dL [facility] Leukocytes, UA Negative Negative - 500+++ Charlie/mcL [facility] Nitrite, UA Negative Negative - Positive [facility] pH, UA 6 5 - 9 [facility] Protein, UA Negative Negative - 1999(20) ++++ mg/dL [facility] Spec Grav, UA 1.02 1 - 1.03 [facility] Urobilinogen, UA 1.0 0.2 - 12 mg/dL [facility] Urinalysis macro (dipstick) panel (U)on 05-01-2025 Bilirubin, UA Negative Negative - 4(70) +++ mg/dL [facility] Blood, UA Negative Negative - 50 Willard/mcL [facility] Clarity, UA Clear [facility] Color, UA Yellow [facility] Glucose, UA Negative Negative - 1999(110) ++++ mg/dL [facility] Interpretation and review of laboratory results Normal [facility] Ketones, UA Negative Negative - 160(16) ++++ mg/dL [facility] Leukocytes, UA Negative Negative - 500+++ Charlie/mcL [facility] Nitrite, UA Negative Negative - Positive [facility] pH, UA 6 5 - 9 [facility] Protein, UA Negative Negative - 1999(20) ++++ mg/dL [facility] Spec Grav, UA 1.02 1 - 1.03 [facility] Urobilinogen, UA 1.0 0.2 - 12 mg/dL [facility] US OB FOLLOW UP TRANSABDOMIN AL [...] UA Negative Negative - 4(70) +++ mg/dL [facility] Blood, UA Negative Negative - 50 Willard/mcL [facility] Clarity, UA Clear [facility] Color, UA Yellow [facility] Glucose, UA Negative Negative - 1999(110) ++++ mg/dL [facility] Interpretation and review of laboratory results Normal [facility] Ketones, UA Negative Negative - 160(16) ++++ mg/dL [facility] Leukocytes, UA Negative Negative - 500+++ Charlie/mcL [facility] Nitrite, UA Negative Negative - Positive [facility] pH, UA 6 5 - 9 [facility] Protein, UA Negative Negative - 1999(20) ++++ mg/dL [facility] Spec Grav, UA 1.01 1 - 1.03 [facility] Urobilinogen, UA 1.0 0.2 - 12 mg/dL [facility] Urinalysis macro (dipstick) panel (U)on 03-21-2025 Bilirubin, UA Negative Negative - 4(70) +++ mg/dL [facility] Blood, UA Negative Negative - 50 Willard/mcL [facility] Clarity, UA Clear [facility] Color, UA Yellow [facility] Glucose, UA Negative Negative - 1999(110) ++++ mg/dL [facility] Interpretation and review of laboratory results Normal [facility] Ketones, UA Negative Negative - 160(16) ++++ mg/dL [facility] Leukocytes, UA Negative Negative - 500+++ Charlie/mcL [facility] Nitrite, UA Negative Negative - Positive [facility] pH, UA 6.5 5 - 9 [facility] Protein, UA Negative Negative - 1999(20) ++++ mg/dL [facility] Spec Grav, UA 1.015 1 - 1.03 [facility] Urobilinogen, UA 0.2 0.2 - 12 mg/dL [facility] US OB GROWTHon 03-14-2025 [place] [address] Ultrasound Report Signed Patient: ROSANNE BELCHER MR#: [id number] : 2000 Acct:[id number] Age/Sex: 24 / F ADM Date: 03/14/25 Loc: US Attending Dr: Sera Mckeon Ordering Physician: Sera Mckeon Date of Service: 03/14/25 Procedure(s): US OB growth Accession Number(s): [id number] cc: Sera Mckeon; Shilpi Blanton M.D. The [place] [id number] Patient Name: ROSANNE BELCHER MRN: [facility]:[id number] date: 2000 Sex: F Assigned Patient Location: US Current Patient Location: US Accession/Order Number: [id number] Exam Date: 03/14/2025 15:38 Report Date: 03/14/2025 [...] Jr., D.O. 03/14/2025 3:41 PM Dictation Location: [place] [address] Electronically authenticated by: [id number] Y Date: 03/14/2025 15:41 Dictated By: Guanaco Davenport M.D. Signed By: 03/14/25 1544 DD/ 1541 TD/TT: Machine Molder Squeeze: [facility] Radiology, Radiologist, - 03/14/2025 [place] [address] Ultrasound Report Signed Patient: ROSANNE BELCHER MR#: [id number] : 2000 Acct:[id number] Age/Sex: 24 / F ADM Date: 03/14/25 Loc: US Attending Dr: Sera Mckeon Ordering Physician: Sera Mckeon Date of Service: 03/14/25 Procedure(s): US OB growth Accession Number(s): [id number] cc: Sera Mckeon; Shilpi Blanton M.D. [place] [address] Patient Name: ROSANNE BELCHER MRN: [facility]:[id number] date: 2000 Sex: F Assigned Patient Location: US Current Patient Location: US Accession/Order Number: [id number] Exam Date: 03/14/2025 15:38 Report Date: 03/14/2025 [...] Jr., D.O. 03/14/2025 3:41 PM Dictation Location: [place] [address] Electronically authenticated by: [id number] Y Date: 03/14/2025 15:41 Dictated By: Guanaco Davenport M.D. Signed By: 03/14/25 1544 DD/ 1541 TD/TT: Machine Molder Squeeze: [facility] Radiology Study observation (narrative) [facility] US OB GROWTHOrdered By: Joaquin ologjuanita Radiology on 03-14-2025 [facility] Work Phone: ALL CBC WITH AUTO DIFFon BASOPHILS ABSOLUTE AUTO 0 [facility] Basophils/100 WBC (Bld) 0.2 % 0.2 - 2.0 % [facility] Eosinophils/100 WBC (Bld) 1 % 0.9 - 7.0 % [facility] Erythrocyte distribution width (RBC) [Ratio] 12.4 % 11.0 - 15.0 % [facility] Hematocrit (Bld) [Volume fraction] 33.6 % Low 36.0 - 48.0 % [facility] Hemoglobin (Bld) [Mass/Vol] 11.1 g/dL Low 12.0 - 16.0 g/dL [facility] IMMATURE GRANULOCYTES ABS AUTO 0.02 [facility] Immature granulocytes/100 WBC (Bld) 0.2 % 0.0 - 0.5 % [facility] Interpretation and review of laboratory results Abnormal [facility] LYMPHOCYTES ABSOLUTE AUTO 1.6 [facility] Lymphocytes/100 WBC (Bld) 17.6 % Low 20.5 - 60.0 % [facility] MCH (RBC) [Entitic mass] 27.3 pg 26.7 - 34.0 pg [facility] MCHC (RBC) [Mass/Vol] 33 g/dL 29.9 - 35.2 g/dL [facility] MCV (RBC) [Entitic vol] 82.8 fL 81.0 - 99.0 fL [facility] MONOCYTES ABSOLUTE AUTO 0.5 [facility] Monocytes/100 WBC (Bld) 6.1 % 1.7 - 12.0 % [facility] NEUTROPHILS ABSOLUTE AUTO 6.6 High [facility] Neutrophils/100 WBC (Bld) 74.9 % 43.0 - 75.0 % [facility] Platelet mean volume (Bld) [Entitic vol] 10 fL 9.5 - 13.5 fL [facility] EO # 0.1 [facility] PLT 283 [facility] RBC 4.06 Low [facility] WBC 8.9 [facility] Urinalysis macro (dipstick) panel (U)on 03-07-2025 Bilirubin, UA Negative Negative - 4(70) +++ mg/dL [facility] Blood, UA Negative Negative - 50 Willard/mcL [facility] Clarity, UA Clear [facility] Color, UA Yellow [facility] Glucose, UA Negative Negative - 2000(110) ++++ mg/dL [facility] Interpretation and review of laboratory results Normal [facility] Ketones, UA Negative Negative - 160(16) ++++ mg/dL [facility] Leukocytes, UA Negative Negative - 500+++ Charlie/mcL [facility] Nitrite, UA Negative Negative - Positive [facility] pH, UA 6.5 5 - 9 [facility] Protein, UA Negative Negative - 1999(20) ++++ mg/dL [facility] Spec Grav, UA 1.015 1 - 1.03 [facility] Urobilinogen, UA 0.2 0.2 - 12 mg/dL [facility] Urinalysis macro (dipstick) panel (U)on 02-21-2025 Bilirubin, UA Negative Negative - 4(70) +++ mg/dL [facility] Blood, UA Negative Negative - 50 Willard/mcL [facility] Clarity, UA Clear [facility] Color, UA Yellow [facility] Glucose, UA Negative Negative - 1999(110) ++++ mg/dL [facility] Interpretation and review of laboratory results Normal [facility] Ketones, UA Negative Negative - 160(16) ++++ mg/dL [facility] Leukocytes, UA Negative Negative - 500+++ Charlie/mcL [facility] Nitrite, UA Negative Negative - Positive [facility] pH, UA 6.5 5 - 9 [facility] Protein, UA Negative Negative - 1999(20) ++++ mg/dL [facility] Spec Grav, UA 1.01 1 - 1.03 [facility] Urobilinogen, UA 0.2 0.2 - 12 mg/dL [facility] Urinalysis macro (dipstick) panel (U)on 01-23-2025 Bilirubin, UA Negative Negative - 4(70) +++ mg/dL [facility] Blood, UA Negative Negative - 50 Willard/mcL [facility] Clarity, UA Clear [facility] Color, UA Yellow [facility] Glucose, UA Negative Negative - 1999(110) ++++ mg/dL [facility] Interpretation and review of laboratory results Normal [facility] Ketones, UA Negative Negative - 160(16) ++++ mg/dL [facility] Leukocytes, UA Negative Negative - 500+++ Charlie/mcL [facility] Nitrite, UA Negative Negative - Positive [facility] pH, UA 6.5 5 - 9 [facility] Protein, UA Negative Negative - 1999(20) ++++ mg/dL [facility] Spec Grav, UA 1.02 1 - 1.03 [facility] Urobilinogen, UA 0.2 0.2 - 12 mg/dL [facility] US OB 14+ WEEKS ANATOMY [...] II, MD, PHD at 13-Jan-2025 06:46:09 PM [facility] Normal Not Available Comment on above: Order Comment: US OB ANATOMY SINGLE W US OB CERVICAL LENGTH Estimated Date of Delivery: 05/29/25 Gestational Age as of 12/26/2024: 18w0d RECURRENT VAGINITIS (HTRX)on 12-27-2024 ATOPOBIUM VAGINAE 0 [facility] ATOPOBIUM VAGINAE Not detected [facility] BVAB 2,3 (BACTERIAL VAGINOSIS ASSOCIATED BACTERIA 2, 3); MOBILUNCUS SPP 0 [facility] BVAB 2,3 (BACTERIAL VAGINOSIS ASSOCIATED BACTERIA 2, 3); MOBILUNCUS SPP Not detected [facility] TRICIA ALBICANS, PARAPSILOSIS, TROPICALIS 0 [facility] TRICIA ALBICANS, PARAPSILOSIS, TROPICALIS Not detected [facility] TRICIA GLABRATA 0 [facility] TRICIA GLABRATA Not detected [facility] TRICIA KRUSEI 0 [facility] TRICIA KRUSEI Not detected [facility] CHLAMYDIA TRACHOMATIS 0 [facility] CHLAMYDIA TRACHOMATIS Not detected [facility] GARDNERELLA VAGINALIS 0 [facility] GARDNERELLA VAGINALIS Not detected [facility] MEGASPHAERA (TYPES 1, 2) 0 [facility] MEGASPHAERA (TYPES 1, 2) Not detected [facility] MYCOPLASMA GENITALIUM 0 [facility] MYCOPLASMA GENITALIUM Not detected [facility] NEISSERIA GONORRHOEAE 0 [facility] NEISSERIA GONORRHOEAE Not detected [facility] TRICHOMONAS VAGINALIS 0 [facility] TRICHOMONAS VAGINALIS Not detected [facility] Urinalysis macro (dipstick) panel (U)Ordered By: Alison King on 12-26-2024 Bilirubin, UA Negative Negative - 4(70) +++ mg/dL [facility] Blood, UA Negative Negative - 50 Willard/mcL [facility] Clarity, UA Clear [facility] Color, UA Yellow [facility] Glucose, UA Negative Negative - 1999(110) ++++ mg/dL [facility] Interpretation and review of laboratory results Normal [facility] Ketones, UA Negative Negative - 160(16) ++++ mg/dL [facility] Leukocytes, UA Negative Negative - 500+++ Charlie/mcL [facility] Nitrite, UA Negative Negative - Positive [facility] pH, UA 6 5 - 9 [facility] Protein, UA Negative Negative - 1999(20) ++++ mg/dL [facility] Spec Grav, UA 1.02 1 - 1.03 [facility] Urobilinogen, UA 0.2 0.2 - 12 mg/dL [facility] GLUCOSE TOLERANCE 3 HOURon 0 12-20-2024 GLUCOSE TOLERANCE 3 HOUR mg/dL [facility] Comment on above: GLU FAST 93 (<95) Co l: 12/20/24 0741 GLU 1HR 141 (<180) Col: 12/20/24 0849 GLU 2HR 131 (<155) Col: 12/20/24 0949 GLU 3HR 99 (<140) Col: 12/20/24 10[facility] [place]inal[facility] macro (dipstick) panel (U)on 11-27-2024 Bilirubin, UA Negative Negative - 4(70) +++ mg/dL [facility] Blood, UA Negative Negative - 50 Willard/mcL [facility] Clarity, UA Clear [facility] Color, UA Yellow [facility] Glucose, UA Negative Negative - 2000(110) ++++ mg/dL [facility] Interpretation and review of laboratory results Normal [facility] Ketones, UA Negative Negative - 160(16) ++++ mg/dL [facility] Leukocytes, UA Negative Negative - 500+++ Charlie/mcL [facility] Nitrite, UA Negative Negative - Positive [facility] pH, UA 5.5 5 - 9 [facility] Protein, UA Negative Negative - 1999(20) ++++ mg/dL [facility] Spec Grav, UA 1.005 1 - 1.03 [facility] Urobilinogen, UA 0.2 0.2 - 12 mg/dL [facility] MLR HEMOGLOBIN A1Con 025 Glucose [Mass/Vol] 120 mg/dL [facility] HbA1c (Bld) [Mass fraction] 5.8 % 4.5 - 6.2 % [facility] Comment on above: ADA RECOMMENDED LIMI T 4.0 - 6.0 ADA THERAPEUTIC TARGET < 7.0 ACTION SUGGESTED > 7.0 [facility] HCG ( test) Ql (U)o n 10-26-2024 Interpretation and review of laboratory results Abnormal [facility] Preg Test, Ur Positive Negative [facility] US OB TRANSVAGINALon 025 US OB [...] report is generated using voice recognition reporting ([employer]okonne[employer]). On occasion, [employer] erroneously drops words from the report or [...] UA Negative Negative - 4(70) +++ mg/dL [facility] Blood, UA Negative Negative - 50 Willard/mcL [facility] Clarity, UA Clear [facility] Color, UA Yellow [facility] Glucose, UA Negative Negative - 1999(110) ++++ mg/dL [facility] Interpretation and review of laboratory results Normal [facility] Ketones, UA Negative Negative - 160(16) ++++ mg/dL [facility] Leukocytes, UA Negative Negative - 500+++ Charlie/mcL [facility] Nitrite, UA Negative Negative - Positive [facility] pH, UA 6.5 5 - 9 [facility] Protein, UA Negative Negative - 1999(20) ++++ mg/dL [facility] Spec Grav, UA 1.005 1 - 1.03 [facility] Urobilinogen, UA 0.2 0.2 - 12 mg/dL [facility] US SINGLE QUAD RT UPPERon US [...] DARCY AU Date: 2021-12-26 16:10 Normal [facility] CBC AUTO DIFFon 07-29-2021 BASO # 0.0 103/ul Normal 0.0-0.1 [facility] Comment on above: Performed By: #### D RUGRPD #### [facility] [address] [place] [address] Dr. Brian Abdi Basophils/100 WBC (Bld) 0.2 % Normal 0.2-2.0 [facility] Comment on above: Performed By: #### D RUGRPD #### [facility] [address] [place] [address] Dr. Brian Abdi EO # 0.1 103/ul Normal 0.0-0.7 [facility] Comment on above: Performed By: #### D RUGRPD #### [facility] [address] [place] [address] Dr. Brian Abdi Eosinophils/100 WBC (Bld) 0.5 % Critically low 0.9-7.0 [facility] Comment on above: Performed By: #### D RUGRPD #### [facility] [address] [place] [address] Dr. Brian Abdi Erythrocyte distribution width (RBC) [Ratio] 13.9 % Normal 11.0-15.0 [facility] Comment on above: Performed By: #### D RUGRPD #### [facility] [address] [address] [address] Brian Abdi Hematocrit (Bld) [Volume fraction] 25.7 % Critically low 36.0-48.0 [facility] Comment on above: Performed By: #### D RUGRPD #### [facility] [address] [place] [address] Dr. Brian Abdi Hemoglobin (Bld) [Mass/Vol] 8.2 g/dL Critically low 12.0-16.0 [facility] Comment on above: Result Comment: SURESH ENT DELIVERED Performed By: #### D RUGRPD #### [facility] [address] [place] [address] Dr. Brian Abdi IG # 0.04 10e3/ul Critically high 0.00-0.03 [facility] Comment on above: Performed By: #### D RUGRPD #### [facility] [address] [place] [address] Dr. Brian Abdi IG % 0.4 % Normal 0.0-0.5 [facility] Comment on above: Performed By: #### D RUGRPD #### [facility] [address] [place] [address] Dr. Brian Abdi LYMPH # 2.4 103/ul Normal 1.2-3.8 [facility] Comment on above: Performed By: #### D RUGRPD #### [facility] [address] [place] [address] Dr. Brian Abdi Lymphocytes/100 WBC (Bld) 23.6 % Normal 20.5-60.0 [facility] Comment on above: Performed By: #### D RUGRPD #### [facility] [address] [place] [address] Dr. Brian Abdi MANUAL DIFF REQ NO Normal [facility] Comment on above: Performed By: #### D RUGRPD #### [facility] [address] [place] [address] Dr. Brian Abdi MCH (RBC) [Entitic mass] 27.6 pg Normal 26.7-34.0 [facility] Comment on above: Performed By: #### D RUGRPD #### [facility] [address] [place] [address] Dr. Brian Abdi MCHC (RBC) [Mass/Vol] 31.9 g/dL Normal 29.9-35.2 [facility] Comment on above: Performed By: #### D RUGRPD #### [facility] [address] [place] [address] Dr. Brian Abdi MCV (RBC) [Entitic vol] 86.5 fL Normal 81.0-99.0 [facility] Comment on above: Performed By: #### D RUGRPD #### [facility] [address] [place] [address] Dr. Brian Abdi MONO # 0.7 103/ul Normal 0.3-0.8 [facility] Comment on above: Performed By: #### D RUGRPD #### [facility] [address] [place] [address] Dr. Brian Abdi Monocytes/100 WBC (Bld) 7.3 % Normal 1.7-12.0 [facility] Comment on above: Performed By: #### D RUGRPD #### [facility] [address] [place] [address] Dr. Brian Abdi NEUT # 6.8 103/ul Critically high 1.4-6.5 [facility] Comment on above: Performed By: #### D RUGRPD #### [facility] [address] [place] [address] Dr. Brian Abdi Neutrophils/100 WBC (Bld) 68.0 % Normal 43.0-75.0 [facility] Comment on above: Performed By: #### D RUGRPD #### [facility] [address] [place] [address] Dr. Brian Abdi Platelet mean volume (Bld) [Entitic vol] 9.8 fL Normal 9.5-13.5 [facility] Comment on above: Performed By: #### D RUGRPD #### [facility] [address] [place] [address] Dr. Brian Abdi PLT 204 103/ul Normal 150-450 [facility] Comment on above: Performed By: #### D RUGRPD #### [facility] [address] [place] [address] Dr. Brian Abdi RBC 2.97 106/ul Critically low 4.20-5.40 [facility] Comment on above: Performed By: #### D RUGRPD #### [facility] [address] [place] [address] Dr. Brian Abdi WBC 10.0 103/ul Normal 4.0-11.0 [facility] Comment on above: Performed By: #### D RUGRPD #### [facility] [address] [place] [address] Dr. Brian Abdi CBC AUTO DIFFon 07-28-2021 BASO # 0.0 103/ul Normal 0.0-0.1 [facility] Comment on above: Performed By: #### H H #### [facility] [address] [place] [address] Sunitha Tram Basophils/100 WBC (Bld) 0.3 % Normal 0.2-2.0 [facility] Comment on above: Performed By: #### H H #### [facility] [address] [place] [address] Sunitha Tram EO # 0.0 103/ul Normal 0.0-0.7 [facility] Comment on above: Performed By: #### H H #### [facility] [address] [place] [address] Sunitha Tram Eosinophils/100 WBC (Bld) 0.6 % Critically low 0.9-7.0 [facility] Comment on above: Performed By: #### H H #### [facility] [address] [place] [address] Sunitha Ugalde Erythrocyte distribution width (RBC) [Ratio] 14.1 % Normal 11.0-15.0 [facility] Comment on above: Performed By: #### H H #### [facility] [address] [place] [address] Sunitha Tram Hematocrit (Bld) [Volume fraction] 34.5 % Critically low 36.0-48.0 [facility] Comment on above: Performed By: #### H H #### [facility] [address] [place] [address] Sunitha Tram Hemoglobin (Bld) [Mass/Vol] 10.8 g/dL Critically low 12.0-16.0 [facility] Comment on above: Performed By: #### H H #### [facility] [address] [place] [address] Sunitha Tram IG # 0.02 10e3/ul Normal 0.00-0.03 [facility] Comment on above: Performed By: #### H H #### [facility] [address] [place] [address] Sunitha Tram IG % 0.3 % Normal 0.0-0.5 [facility] Comment on above: Performed By: #### H H #### [facility] [address] [place] [address] Sunitha Tram LYMPH # 1.8 103/ul Normal 1.2-3.8 [facility] Comment on above: Performed By: #### H H #### [facility] [address] [place] [address] Suintha Ugalde Lymphocytes/100 WBC (Bld) 25.4 % Normal 20.5-60.0 [facility] Comment on above: Performed By: #### H H #### [facility] [address] [place] [address] Sunitha Tram MANUAL DIFF REQ NO Normal [facility] Comment on above: Performed By: #### H H #### [facility] [address] [place] [address] Sunithajack Ugalde MCH (RBC) [Entitic mass] 27.3 pg Normal 26.7-34.0 [facility] Comment on above: Performed By: #### H H #### [facility] [address] [place] [address] Sunitha Tram MCHC (RBC) [Mass/Vol] 31.3 g/dL Normal 29.9-35.2 [facility] Comment on above: Performed By: #### H H #### [facility] [address] [id number] Sunithajack Salesen MCV (RBC) [Entitic vol] 87.3 fL Normal 81.0-99.0 [facility] Comment on above: Performed By: #### H H #### [facility] [address] [id number] Sunithajack Salesen MONO # 0.6 103/ul Normal 0.3-0.8 [facility] Comment on above: Performed By: #### H H #### [facility] [address] [id number] Sunitha Tram Monocytes/100 WBC (Bld) 8.7 % Normal 1.7-12.0 [facility] Comment on above: Performed By: #### H H #### [facility] [address] [address] Sunitha Tram NEUT # 4.7 103/ul Normal 1.4-6.5 [facility] Comment on above: Performed By: #### H H #### [facility] [address] [id number] Sunitha Tram Neutrophils/100 WBC (Bld) 64.7 % Normal 43.0-75.0 [facility] Comment on above: Performed By: #### H H #### [facility] [address] [id number] Sunithajack Ugalde Platelet mean volume (Bld) [Entitic vol] 9.8 fL Normal 9.5-13.5 [facility] Comment on above: Performed By: #### H H #### [facility] [address] [id number] Sunitha Tram PLT 240 103/ul Normal 150-450 [facility] Comment on above: Performed By: #### H H #### [facility] [address] [id number] Sunitha Tram RBC 3.95 106/ul Critically low 4.20-5.40 [facility] Comment on above: Performed By: #### H H #### [facility] [address] [place] [address] Sunitha Ugalde WBC 7.3 103/ul Normal 4.0-11.0 [facility] Comment on above: Performed By: #### H H #### [facility] [address] [place] [address] Sunitha Ugalde DRUG SCREEN RAPID (URINE)on 07-28-2021 AMP Negative Normal NEGATIVE [facility] Comment on above: Performed By: #### D RUGRPD #### [facility] [address] [place] [address] Dr. Brian Abdi BAR Negative Normal NEGATIVE [facility] Comment on above: Performed By: #### D RUGRPD #### [facility] [address] [place] [address] Dr. Brian Abdi BUP Negative Normal NEGATIVE [facility] Comment on above: Performed By: #### D RUGRPD #### [facility] [address] [place] [address] Dr. Brian Abdi BZO Negative Normal NEGATIVE [facility] Comment on above: Performed By: #### D RUGRPD #### [facility] [address] [place] [address] Dr. Brian Abdi LISA Negative Normal NEGATIVE [facility] Comment on above: Performed By: #### D RUGRPD #### [facility] [address] [place] [address] Dr. Brian Abdi CUT-OFFS SEE BELOW Normal [facility] Comment on above: Result Comment: AMP (Amphetamine): 500ng/mL, BAR (Barbituates): 200 ng/mL, BZO (Benzodiazepines): 150 ng/mL, BUP (Buprenorphine): 10 ng/mL, LISA (Cocaine): 150 ng/mL, mAMP (Methamphetamine): 500 ng/mL, MTD (Methadone): 200 ng/mL, OPI (Opiates): 100 ng/mL, OXY (Oxycodone): 100 ng/mL, PCP (Phencyclidine): 25 ng/mL, PPX (Propoxyphene): 300 ng/mL, THC (Cannabinoids): 50 ng/mL, TCA (Trycyclic Antidepressants): 300 ng/mL Performed By: #### D RUGRPD #### [facility] [address] [place] [address] Dr. Brian Abdi DRUG CUT HEADER DRUG CLASS TEST SYSTEM CUT-OFF CONCENTRATIONS ARE FOLLOWS: Normal [facility] Comment on above: Performed By: #### D RUGRPD #### [facility] [address] [place] [address] Dr. Brian Abdi mAMP Negative Normal NEGATIVE [facility] Comment on above: Performed By: #### D RUGRPD #### [facility] [address] [place] [address] Dr. Brian Abdi MTD Negative Normal NEGATIVE [facility] Comment on above: Performed By: #### D RUGRPD #### [facility] [address] [place] [address] Dr. Brian Abdi OPI Negative Normal NEGATIVE [facility] Comment on above: Performed By: #### D RUGRPD #### [facility] [address] [place] [address] Dr. Brian Abdi OXY Negative Normal NEGATIVE [facility] Comment on above: Performed By: #### D RUGRPD #### [facility] [address] [address] [address] Brian Abdi PCP Negative Normal NEGATIVE [facility] Comment on above: Performed By: #### D RUGRPD #### [facility] [address] [place] [address] Dr. Brian Abdi PPX Negative Normal NEGATIVE [facility] Comment on above: Performed By: #### D RUGRPD #### [facility] [address] [place] [address] Dr. Brian Abdi TCA Negative Normal NEGATIVE [facility] Comment on above: Performed By: #### D RUGRPD #### [facility] [address] [place] [address] Dr. Brian Abdi THC Negative Normal NEGATIVE [facility] Comment on above: Performed By: #### D RUGRPD #### [facility] [address] [place] [address] Dr. Brian Abdi TYPE AND SCREENon 07-28-2021 TYPE AND SCREEN Negative Normal [facility] Comment on above: Performed By: #### T NS #### [facility] [address] [place] [address] Dr. Brian Abdi UA (CLEAN/CATCH) VACUUM REPAIRER/MICRO I F IND.on 07-28-2021 Bilirubin Ql (U) Negative Normal NEGATIVE [facility] Comment on above: Performed By: #### H H #### [facility] [address] [place] [address] Sunitha Tram Clarity (U) CLEAR Normal CLEAR [facility] Comment on above: Performed By: #### H H #### [facility] [address] [place] [address] Sunitha Tram Color (U) LT. YELLOW Normal YELLOW [facility] Comment on above: Performed By: #### H H #### [facility] [address] [place] [address] Sunitha Tram Glucose Ql (U) Negative Normal NEGATIVE [facility] Comment on above: Performed By: #### H H #### [facility] [address] [place] [address] Sunitha Tram Hemoglobin Ql (U) Negative Normal NEGATIVE [facility] Comment on above: Performed By: #### H H #### [facility] [address] [place] [address] Sunitha Tram Ketones Ql (U) Negative Normal NEGATIVE [facility] Comment on above: Performed By: #### H H #### [facility] [address] [place] [address] Sunitha Trma LEUKOCYTES Negative Normal NEGATIVE [facility] Comment on above: Performed By: #### H H #### [facility] [address] [place] [address] Sunitha Tram Nitrite Ql (U) Negative Normal NEGATIVE [facility] Comment on above: Performed By: #### H H #### [facility] [address] [place] [address] Sunitha Tram pH (U) 6.0 [pH] Normal 5-9 [facility] Comment on above: Performed By: #### H H #### [facility] [address] [place] [address] Sunitha Ugalde SPEC GRAVITY <=1.005 Abnormal 1.005-<=1.025 [facility] Comment on above: Performed By: #### H H #### [facility] [address] [place] [address] Sunitha Ugalde UA PROTEIN Negative Normal NEGATIVE/ TRACE [facility] Comment on above: Performed By: #### H H #### [facility] [address] [place] [address] Sunitha Tram UR MICRO IND NOT INDICATED Normal [facility] Comment on above: Performed By: #### H H #### [facility] [address] [place] [address] Sunitha Tram Urobilinogen Qn (U) 0.2 {Fito'U}/dL Normal 0.2 - 1. 0 [facility] Comment on above: Performed By: #### H H #### [facility] [address] [place] [address] [facility] Cov[facility] (CVDTB)on 06-28 SARS-CoV-2 (COVID-19) RNA JEROD+probe Ql (Unsp spec) Not detected Normal NOT DETECTED [facility] Comment on above: Result Comment: This test is not yet approved or cleared by the [place] FDA. When there are no FDA-approved or cleared tests available, and other criteria are met, FDA can make tests available under an emergency access mechanism called an Emergency Use Authorization (EUA). The EUA for this test is supported by the [place] of Health and Human Service's (HHS's) declaration [...] SARS-CoV-2. Performed By: #### D RUGRPD #### [facility] [address] [place] [address] Dr. Brian Abdi GROUP B STREP CULTUREon 06-27 S. agalactiae Ag Ql (Unsp spec) Culture Observations: GBS CALD TO TRAM TRAORE,IMPORT COORDINATION AND PRODUCTION HEAD@/ /RK Isolate 1 Streptococcus agalactiae Moderate growth [...] F Tetracycline <=0.25 S F Normal [facility] Comment on above: Performed By: #### G BSCX #### [facility] [address] [place] [address] Dr. Brian Abdi HEMOGRAM AND PLATELon 2020 Hematocrit (Bld) [Volume fraction] 33.7 % Critically low 36.0-48.0 [facility] Comment on above: Performed By: #### H H #### [facility] [address] [place] [address] Sunitha Tram Hemoglobin (Bld) [Mass/Vol] 10.8 g/dL Critically low 12.0-16.0 [facility] Comment on above: Performed By: #### H H #### [facility] [address] [place], [place] [address] Sunitha Tram MCH (RBC) [Entitic mass] 28.3 pg Normal 26.7-34.0 [facility] Comment on above: Performed By: #### H H #### [facility] [address] [place], [place] [address] Sunitha Tram MCHC (RBC) [Mass/Vol] 32.0 g/dL Normal 29.9-35.2 [facility] Comment on above: Performed By: #### H H #### [facility] [address] [place], [place] [address] Sunitha Ugalde MCV (RBC) [Entitic vol] 88.2 fL Normal 81.0-99.0 [facility] Comment on above: Performed By: #### H H #### [facility] [address] [place], [place] [address] Sunitha Tram PLT 252 103/ul Normal 150-450 [facility] Comment on above: Performed By: #### H H #### [facility] [address] [address] Sunitha Tram RBC 3.82 106/ul Critically low 4.20-5.40 [facility] Comment on above: Performed By: #### H H #### [facility] [address] [address] Sunitha Tram WBC 8.2 103/ul Normal 4.0-11.0 [facility] Comment on above: Performed By: #### H H #### [facility] [address] [address] Sunitha Ugalde GLUCOSE - 1HRon 04-16-2021 Glucose [Mass/Vol] 129 mg/dL Critically high 74-106 T [facility] Comment on above: Performed By: #### D RUGRPD #### [facility] [address] [place], [place] [address] Dr. Brian Abdi HEMOGLOBINon 04-16-2021 Hemoglobin (Bld) [Mass/Vol] 10.8 g/dL Critically low 12.0-16.0 [facility] Comment on above: Performed By: #### H H #### [facility] [address] [id number] Sunitha Tram AFP MATERNAL FOR SPINA BIFID Aon 03-19-2021 AFP MoM 0.91 Normal [facility] Comment on above: Performed By: #### H H #### [facility] [address] [id number] Sunitha Ugalde AFP Value 47.2 ng/mL Normal [facility] Comment on above: Performed By: #### H H #### [facility] [address] [address] Sunitha Ugalde AFP, Serum for Spina Bifida Report Normal [facility] Comment on above: Performed By: #### H H #### [facility] [address] [address] Sunitha Ugalde Comment Comment Normal [facility] Comment on above: Result Comment: Isa Robles, Ph.D., [facility] Director . References: Available Upon Request. . Multiples Of Median Cutoffs For AFP Elevations Arroyo 2.5 Black 2.8 IDD 2.0 Twins 4.5 Abbreviation Definitions IDD - Insulin Dep Diabetes OSBR - Open Spina Bifida Risk . For further inquiries contact [employer] [facility] at [phone]. Performed By: #### H H #### [facility] [address] [address] Sunitha Ugalde Gest Age Collection Date 20[age][address] [facility] Comment on above: Performed By: #### H H #### [facility] [address] [address] Sunitha Ugalde Gestat, Age Based on DEL Normal [facility] Comment on above: Result Comment: 03/2021 Recalculations are not recommended when gestational dating by LMP and ultrasound are within 10 days. Performed By: #### H H #### [facility] [address] [address] Sunitha Ugalde Insulin Dep Diabetes No Normal [facility] Comment on above: Performed By: #### H H #### [facility] [address] [address] Sunitha Ugalde Interpretation Comment Normal [facility] Comment on above: Result Comment: [...] Customer Services to discuss available options. The [employer] recommends amniocentesis be offered to women age 35 and older. Performed By: #### H H #### [facility] [address] [address] Sunitha Ugalde [age] Normal [facility] Comment on above: Performed By: #### H H #### [facility] [address] [address] Sunitha Ugalde Multiple Gestation No Normal [facility] Comment on above: Performed By: #### H H #### [facility] [address] [address] Sunitha [place]galde OS[place] 1 [place] [address] Normal [facility] Comment on above: Performed By: #### H H #### [facility] [address] [place] [address] Sunitha Ugalde PDF . [facility] Comment on above: Performed By: #### H H #### [facility] [address] [place] [address] Sunitha Ugalde Race Normal [facility] Comment on above: Performed By: #### H H #### [facility] [address] [place] [address] Sunitha Ugalde Test Results: Negative [facility] Comment on above: Performed By: #### H H #### [facility] [address] [place] [address] Sunitha Ugalde US PREG ANATOMY SINGLEon US [...] TRENT LEE Date: 2021-03-17 11:10 Normal [facility] HEMOGLOBIN AND HEMATOCRITon 03-12-2021 Hematocrit (Bld) [Volume fraction] 34.4 % Critically low 36.0-48.0 [facility] Comment on above: Performed By: #### H H #### [facility] [address] [place] [address] Sunitha Tram Hemoglobin (Bld) [Mass/Vol] 11.3 g/dL Critically low 12.0-16.0 [facility] Comment on above: Performed By: #### H H #### [facility] [address] [place] [address] Sunitha Ugalde CHLAMYDIA/GONOCOCCUS JEROD (SW AB/URINE/PAPon 02-28-2021 Chlamydia trachomatis, JEROD Negative Normal Negative [facility] Comment on above: Performed By: #### C T/NGNA #### [facility] [address] [place] [address] Sunithajack Ugalde Neisseria gonorrhoeae, JEROD Negative Normal Negative [facility] Comment on above: Performed By: #### C T/NGNA #### [facility] [address] [place] [address] Sunitha Tram PAP ACOG PANEL 2: 21 to 29on 02-28-2021 . . Normal [facility] Comment on above: Performed By: #### H H #### [facility] [address] [place] [address] Sunitha Ugalde Age Gdln ACOG Testing 21-[address] [facility] Comment on above: Performed By: #### H H #### [facility] [address] [place] [address] Sunitha Ugalde DIAGNOSIS: Comment Normal [facility] Comment on above: Result Comment: NEGA TIVE FOR INTRAEPITHELIAL LESION OR MALIGNANCY. Performed By: #### H H #### [facility] [address] [place] [address] Sunitha Ugalde Methodology: Comment Normal [facility] Comment on above: Result Comment: This liquid based ThinPrep(R) pap test was screened with the use of an image guided system. Performed By: #### H H #### [facility] [address] [place] [address] Sunitha Ugalde Note: Comment Normal [facility] Comment on above: Result Comment: The Pap smear is a screening test designed to aid in the detection of premalignant and malignant conditions of the uterine cervix. It is not a diagnostic procedure and should not be used as the sole means of detecting cervical cancer. Both false-positive and false-negative reports do occur. . Performed By: #### H H #### [facility] [address] [place] [address] Sunitha Ugalde Performed by: Comment Normal [facility] Comment on above: Result Comment: Aixa Betancur, Air Breaker Operator (ASCP) Performed By: #### H H #### [facility] [address] [place] [address] Sunitha Ugalde Reflex Criteria: Comment Normal [facility] Comment on above: Result Comment: The HPV DNA reflex criteria were not met with this specimen result therefore, no HPV testing was performed. . Performed By: #### H H #### [facility] [address] [place] [address] Sunitha Ugalde Specimen adequacy: Comment Normal [facility] Comment on above: Result Comment: Sati sfactory for evaluation. No endocervical component is identified. Performed By: #### H H #### [facility] [address] [place] [address] Sunitha Ugalde VAGINITIS/VAGINOSIS DNA PROB Constantine 02-27-2021 Tricia species Negative Normal Negative [facility] Comment on above: Performed By: #### V AGINT #### [facility] [address] [place] [address] Sunitha Ugalde Gardnerella vaginalis Negative Normal Negative [facility] Comment on above: Performed By: #### V AGINT #### [facility] [address] [place] [address] Sunitha Ugalde Trichomonas vaginalis Negative Normal Negative [facility] Comment on above: Performed By: #### V AGINT #### [facility] [address] [place] [address] Sunitha Ugalde CULTURE URINEon 01-16-2021 CULTURE URINE [...] F Tetracycline <=0.25 S F Normal [facility] Comment on above: Performed By: #### D RUGRPD #### [facility] [address] [place] [address] Dr. Brian Abdi HEP B SURFACE ANTIGEN SCREEN on 01-14-2021 HBsAg Screen Negative Normal Negative [facility] Comment on above: Performed By: #### H BSANS #### [facility] [address] [place] [address] Sunitha Ugalde HEPATITIS C VIRUS AB W/ REFL EX QUANTon 01-14-2021 HCV AB 0.1 s/co ratio Normal 0.0-0.9 [facility] Comment on above: Performed By: #### H H #### [facility] [address] [place] [address] Sunitha Ugalde Interpretation: Comment Normal [facility] Comment on above: Result Comment: Nega tive Not infected with HCV, unless recent infection is suspected or other evidence exists to indicate HCV infection. Performed By: #### H H #### [facility] [address] [place] [address] Sunitha Ugalde HIV 1 AND 2 WITH REFLEXon HIV Screen 4th Generation wRfx Non-Reactive Normal Non Reactive [facility] Comment on above: Performed By: #### D RUGRPD #### [facility] [address] [place] [address] Dr. Brian Abdi RPR QUANTon 01-14-2021 Rapid Plasma Reagin, Quant Non-Reactive Normal NonRea<1:1 [facility] Comment on above: Performed By: #### H H #### [facility] [address] [place] [address] Sunitha Ugalde RUBELLA AB IGGon 01-14-2021 Rubella Antibodies, IgG 1.27 index Normal Immune >0.99 [facility] Comment on above: Result Comment: Non- immune <0.90 Equivocal 0.90 - 0.99 Immune >0.99 Performed By: #### H H #### [facility] [address] [place] [address] Sunitha Ugalde CBC AUTO DIFFon 01-13-2021 BASO # 0.0 103/ul Normal 0.0-0.1 [facility] Comment on above: Performed By: #### C BC #### [facility] [address] [place] [address] Sunitha Tram Basophils/100 WBC (Bld) 0.4 % Normal 0.2-2.0 [facility] Comment on above: Performed By: #### C BC #### [facility] [address] [place] [address] Sunitha Tram EO # 0.1 103/ul Normal 0.0-0.7 [facility] Comment on above: Performed By: #### C BC #### [facility] [address] [place] [address] Sunitha Tram Eosinophils/100 WBC (Bld) 0.7 % Critically low 0.9-7.0 [facility] Comment on above: Performed By: #### C BC #### [facility] [address] [place] [address] Sunitha Tram Erythrocyte distribution width (RBC) [Ratio] 13.7 % Normal 11.0-15.0 [facility] Comment on above: Performed By: #### C BC #### [facility] [address] [place] [address] Sunitha Tram Hematocrit (Bld) [Volume fraction] 39.1 % Normal 36.0-48.0 [facility] Comment on above: Performed By: #### C BC #### [facility] [address] [place] [address] Sunitha Tram Hemoglobin (Bld) [Mass/Vol] 12.7 g/dL Normal 12.0-16.0 [facility] Comment on above: Performed By: #### C BC #### [facility] [address] [place] [address] Sunitha Tram IG # 0.02 10e3/ul Normal 0.00-0.03 [facility] Comment on above: Performed By: #### C BC #### [facility] [address] [place] [address] Sunitha Tram IG % 0.3 % Normal 0.0-0.5 [facility] Comment on above: Performed By: #### C BC #### [facility] [address] [place] [address] Sunitha Tram LYMPH # 1.6 103/ul Normal 1.2-3.8 [facility] Comment on above: Performed By: #### C BC #### [facility] [address] [place], [place] [address] Sunitha Tram Lymphocytes/100 WBC (Bld) 21.6 % Normal 20.5-60.0 [facility] Comment on above: Performed By: #### C BC #### [facility] [address] [place], [place] [address] Sunitha Tram MANUAL DIFF REQ NO Normal [facility] Comment on above: Performed By: #### C BC #### [facility] [address] [place] [address] Sunitha Ugalde MCH (RBC) [Entitic mass] 27.6 pg Normal 26.7-34.0 [facility] Comment on above: Performed By: #### C BC #### [facility] [address] [place] [address] Sunitha Ugalde MCHC (RBC) [Mass/Vol] 32.5 g/dL Normal 29.9-35.2 [facility] Comment on above: Performed By: #### C BC #### [facility] [address] [place] [address] Sunithajack Ugalde MCV (RBC) [Entitic vol] 85.0 fL Normal 81.0-99.0 [facility] Comment on above: Performed By: #### C BC #### [facility] [address] [place] [address] Sunitha Ugalde MONO # 0.4 103/ul Normal 0.3-0.8 [facility] Comment on above: Performed By: #### C BC #### [facility] [address] [place] [address] Sunitha Ugalde Monocytes/100 WBC (Bld) 5.4 % Normal 1.7-12.0 [facility] Comment on above: Performed By: #### C BC #### [facility] [address] [place] [address] Sunitha Ugalde NEUT # 5.4 103/ul Normal 1.4-6.5 [facility] Comment on above: Performed By: #### C BC #### [facility] [address] [place] [address] Sunitha Tram Neutrophils/100 WBC (Bld) 71.6 % Normal 43.0-75.0 [facility] Comment on above: Performed By: #### C BC #### [facility] [address] [place], [place] [address] Sunitha Tram Platelet mean volume (Bld) [Entitic vol] 9.3 fL Critically low 9.5-13.5 [facility] Comment on above: Performed By: #### C BC #### [facility] [address] [place] [address] Sunitha Ugalde PLT 296 103/ul Normal 150-450 [facility] Comment on above: Performed By: #### C BC #### [facility] [address] [place], [place] [address] Sunitha Ugalde RBC 4.60 106/ul Normal 4.20-5.40 [facility] Comment on above: Performed By: #### C BC #### [facility] [address] [id number] Sunitha Ugalde WBC 7.5 103/ul Normal 4.0-11.0 [facility] Comment on above: Performed By: #### C BC #### [facility] [address] [place], [place] [address] Sunitha Ugalde GLYCOHEMOGLOBIN A1Con 2020 ADA RECOMMENDATION ADA THERAPEUTIC TARGET 6.0 - 7.0 ACTION SUGGESTED > 7.[address] [facility] Comment on above: Performed By: #### A 1C #### [facility] [address] [place], [place] [address] Sunitha Ugalde Glucose [Mass/Vol] 111 mg/dL Normal [facility] Comment on above: Performed By: #### A 1C #### [facility] [address] [place], [place] [address] Sunitha Ugalde HbA1c (Bld) [Mass fraction] 5.5 % Normal <=6.0 [facility] Comment on above: Performed By: #### A 1C #### [facility] [address] [place], [place] [address] Sunitha Ugalde BARBI BOX TEST PT SEND OUTo n 01-13-2021 SENT TO REF LAB 01/13/21 Normal [facility] Comment on above: Performed By: #### D RUGRPD #### [facility] [address] [place], [place] [address] Dr. Brian Abdi TYPE AND SCREENon 01-13-2021 TYPE AND SCREEN Negative Normal [facility] Comment on above: Performed By: #### D RUGRPD #### [facility] [address] [place], [place] [address] Dr. Brian Abdi Vital Signs Date Time Vital Sign Value Performing Clinician Facility 05-08-2025 12:00-0400 Body height 157.5 cm Sera Mckeon PA Work Phone: [facility] 05-08-2025 11:55-0400 Body mass index (BMI) [Ratio] 41.88 kg/m2 Sera Dylon PA Work Phone: [facility] 05-08-2025 11:55-0400 Body weight 103.87 kg Sera Mckeon PA Work Phone: [facility] 05-08-2025 11:55-0400 Diastolic blood pressure 90 mm[Hg] Sera Dylon PA Work Phone: [facility] 05-08-2025 11:55-0400 Systolic blood pressure 130 mm[Hg] Sera Dylon PA Work Phone: [facility] 05-01-2025 09:17-0400 Body weight 103.15 kg Andres Dante DO Work Phone: [facility] 05-01-2025 09:17-0400 Diastolic blood pressure 82 mm[Hg] Andres Dante DO Work Phone: [facility] 05-01-2025 09:17-0400 Systolic blood pressure 130 mm[Hg] Andres Dante DO Work Phone: [facility] 04-19-2025 08:43-0400 Body weight 102.06 kg Sera Mckeon PA Work Phone: [facility] 04-19-2025 08:43-0400 Diastolic blood pressure 68 mm[Hg] Sera Mckeon PA Work Phone: [facility] 04-19-2025 08:43-0400 Systolic blood pressure 120 mm[Hg] Sera Mckeon PA Work Phone: [facility] 03-21-2025 09:04-0400 Body weight 99.79 kg Kamila Crooks NP Work Phone: [facility] 03-21-2025 09:04-0400 Diastolic blood pressure 60 mm[Hg] Kamila Crooks NP Work Phone: [facility] 03-21-2025 09:04-0400 Systolic blood pressure 120 mm[Hg] Kamila Crooks CDL [employer]UCK [employer] Work Phone: [facility] 03-07-2025 15:18-0400 Body weight 99.97 kg Andres Dante DO Work Phone: [facility] 03-07-2025 15:18-0400 Diastolic blood pressure 70 mm[Hg] Andres Dante DO Work Phone: [facility] 03-07-2025 15:18-0400 Systolic blood pressure 120 mm[Hg] Andres Dante DO Work Phone: [facility] 02-21-2025 15:04-0400 Body weight 99.22 kg Andres Dante DO Work Phone: [facility] 02-21-2025 15:04-0400 Diastolic blood pressure 72 mm[Hg] Andres Dante DO Work Phone: [facility] 02-21-2025 15:04-0400 Systolic blood pressure 106 mm[Hg] Andres Dante DO Work Phone: [facility] 01-23-2025 15:00-0400 Body weight 96.98 kg Andres Dante DO Work Phone: [facility] 01-23-2025 15:00-0400 Diastolic blood pressure 70 mm[Hg] Andres Dante DO Work Phone: [facility] 01-23-2025 15:00-0400 Systolic blood pressure 120 mm[Hg] Andres Dante DO Work Phone: [facility] 12-26-2024 14:32-0400 Body weight 95.44 kg Andres Dante DO Work Phone: [facility] 12-26-2024 14:32-0400 Diastolic blood pressure 70 mm[Hg] Andres Dante DO Work Phone: [facility] 12-26-2024 14:32-0400 Systolic blood pressure 108 mm[Hg] Andres Dante DO Work Phone: [facility] 11-27-2024 14:37-0500 Body weight 96.53 kg Andres Dante DO Work Phone: [facility] 11-27-2024 14:37-0500 Diastolic blood pressure 70 mm[Hg] Andres Dante DO Work Phone: [facility] 11-27-2024 14:37-0500 Systolic blood pressure 122 mm[Hg] Andres Ingramo DO Work Phone: [facility] 10-26-2024 14:54-0500 Body weight 96.25 kg Noms Nurse [facility] 03-19-2021 02:06-0400 Body weight 83.[address] ANDRES HOWELL [facility] Comment on above: Performed By: #### HH #### [facility] [address] [place] [id number] Sunitha Salesen Encounters Encounter Date Encounter Type Care Provider Facility Start: 05-11-2025 End: 05-11-2025 Clinisync Result Encounter Sera RIVAS Work Phone: [facility] Unsolicited Start: 05-11-2025 End: 05-11-2025 Clinisync Result Encounter Sera RIVAS Work Phone: [...] Bamboo flowsheet Sera RIVAS Work Phone: [facility] Start: 05-08-2025 End: 05-08-2025 Bamboo flowsheet Sera Mckeon PA Work Phone: [facility] Start: 05-08-2025 End: 05-08-2025 ambulatory SERA MCKEON Not Available Start: 05-08-2025 End: 05-08-2025 Office outpatient visit 15 minutes Sera Mckeon PA Work Phone: [facility] Comment on above: Third trimester preg ulises ([facility]); 37 weeks gestation of ([facility]); induced hypertension, antepartum ([facility]) Start: 05-01-2025 End: 05-01-2025 Bamboo flowsheet Andres Dante DO Work Phone: [facility] Start: 05-01-2025 End: 05-01-2025 Bamboo flowsheet Andres Dante DO Work Phone: [facility] Start: 05-01-2025 End: 05-01-2025 flow sheet Andres Dante DO Work Phone: [facility] Comment on above: 36 weeks gestation o f ([facility]); Third trimester ([facility]); H/O section Start: 05-01-2025 End: 05-01-2025 ambulatory ANDRES DANTE Not Available Start: 04-19-2025 End: 04-19-2025 Office outpatient visit 15 minutes Sera RIVAS Work Phone: [facility] Comment on above: 34 weeks gestation o f ([facility]); Third trimester ([facility]) Start: 04-19-2025 End: 04-19-2025 ambulatory SERA MCKEON Not Available Start: 03-21-2025 End: 03-21-2025 Bamboo flowsheet Kamila Crooks NP Work Phone: [facility] Start: 03-21-2025 End: 03-21-2025 Bamboo flowsheet Kamilahardeep Velasquezly CDL TRUCK DRIVER Work Phone: [facility] Start: 03-21-2025 End: 03-21-2025 flow sheet Kamila Valeriy CDL TRUCK DRIVER Work Phone: [facility] Comment on above: Size of fetus incons istent with dates in third trimester ([facility]) (Primary Dx); Third trimester ([facility]); 30 weeks gestation of ([facility]) Start: 03-21-2025 End: 03-21-2025 ambulatory KAMILA [...] [facility] Start: 01-23-2025 End: 01-23-2025 Bamboo flowsheet Andres Dante DO Work Phone: [facility] Start: 01-10-2025 End: 01-10-2025 ambulatory ANDRES DANTE Not Available Start: 12-26-2024 End: 12-26-2024 Bamboo flowsheet Andres Dante DO Work Phone: [facility] Start: 12-26-2024 End: 12-27-2024 Bamboo flowsheet Andres Dante DO Work Phone: [facility] Start: 12-26-2024 End: 12-27-2024 External Result Encounter Andres Dante DO Work Phone: [facility] Department Unsolicited Start: 12-26-2024 End: 12-26-2024 Patient encounter procedure Andres Dante DO Work Phone: [facility] Start: 12-26-2024 End: 12-26-2024 flow sheet [...] Work Phone: [facility] Unsolicited Start: 12-20-2024 End: 12-20-2024 [...] 9w2d Start: 10-26-2024 End: 10-26-2024 ambulatory ANDRES HOWELL Not Available Start: 12-26-2021 End: 12-27-[address] SHILPI BLANTON Facility:[facility] Start: 08-04-2021 End: 08-04-[address] ANDRES HOWELL Facility:[facility] Start: 07-28-2021 Evaluation and manag ement of inpatient ZENA QUEVEDO Facility:[facility] Start: 07-28-2021 End: 07-30-2021 Evaluation and management of inpatient DR ANDRES HOWELL Facility:[facility] Start: 07-25-2021 Encounter for preprocedural laboratory examination DR ANDRES HOWELL [facility] Start: 07-22-2021 End: 07-22-[address] [...] Date Procedure Procedure Detail Performing Clinician Start: 05-11-2025 [facility] TOTAL PROTEIN 24 HOUR URINE Sera RIVAS Work Phone: Start: 05-10-2025 US OB BPP W NON-STRESS [...] dip stick/tabl et rgnt non-auto w/o micrscp Andrse Dante DO Work Phone: Start: 01-23-2025 Urnls [...] encounter procedure 05/14/2025 8:30 AM EDT Routine [facility] [address] [id number] Andres Howell, DO [address] [place] [address] [facility] Start: 05-08-2025 End: 05-08-2026 Alanine aminotransferase [Enzymatic activity/volume] in Serum or Plasma ALT Lab Routine induced hypertension, antepartum ([facility]) Expected: 05/08/2025 (Approximate), Expires: 05/08/2026 [facility] Comment on above: Expected: 05/08/2025 (Approximate), Expires: 05/08/2026 Start: 05-08-2025 End: 05-08-2026 Aspartate aminotransferase [Enzymatic activity/volume] in Serum or Plasma AST Lab Routine induced hypertension, antepartum ([facility]) Expected: 05/08/2025 (Approximate), Expires: 05/08/2026 [facility] Comment on above: Expected: 05/08/2025 (Approximate), Expires: 05/08/2026 Start: 05-08-2025 End: 05-08-2026 CBC W Auto Differential panel - Blood CBC and differential Lab Routine induced hypertension, antepartum ([facility]) Expected: 05/08/2025 (Approximate), Expires: 05/08/2026 [facility] Comment on above: Expected: 05/08/2025 (Approximate), Expires: 05/08/2026 Start: 05-08-2025 End: 05-08-2026 Creatinine [Mass/volume] in Serum or Plasma Creatinine Lab Routine induced hypertension, antepartum ([facility]) Expected: 05/08/2025 (Approximate), Expires: 05/08/2026 [facility] Work Phone: Comment on above: Expected: 05/08/2025 (Approximate), Expires: 05/08/2026 Start: 05-08-2025 End: 05-08-2026 Lactate dehydrogenase [Enzymatic activity/volume] in Serum or Plasma by Lactate to pyruvate reaction Lactate dehydrogenase Lab Routine induced hypertension, antepartum ([facility]) Expected: 05/08/2025, Expires: 05/08/2026 [facility] Comment on above: Expected: 05/08/2025 , Expires: 05/08/2026 Start: 05-08-2025 End: 05-08-2026 Protein, urine, 24 hour Protein, urine, 24 hour Lab Routine induced hypertension, antepartum ([facility]) Expected: 05/08/2025 (Approximate), Expires: 05/08/2026 [facility] Comment on above: Expected: 05/08/2025 (Approximate), Expires: 05/08/2026 Start: 05-08-2025 End: 05-08-2026 Pt and ptt Pt and ptt Lab Routine induced hypertension, antepartum ([facility]) Expected: 05/08/2025, Expires: 05/08/2026 [facility] Comment on above: Expected: 05/08/2025 , Expires: 05/08/2026 Start: 05-08-2025 End: 05-08-2026 Urate [Mass/volume] in Serum or Plasma Uric acid Lab Routine induced hypertension, antepartum ([facility]) Expected: 05/08/2025 (Approximate), Expires: 05/08/2026 [facility] Comment on above: Expected: 05/08/2025 (Approximate), Expires: 05/08/2026 Start: 05-08-2025 End: 05-08-2026 Urea nitrogen [Mass/volume] in Serum or Plasma BUN Lab Routine induced hypertension, antepartum ([facility]) Expected: 05/08/2025, Expires: 05/08/2026 [facility] Comment on above: Expected: 05/08/2025 , Expires: 05/08/2026 Start: 05-08-2025 End: 11-08-2025 US biophysical profile w non stress test US biophysical profile w non stress test Imaging Routine induced hypertension, antepartum ([facility]) Expected: 05/08/2025 (Approximate), Expires: 11/08/2025 [facility] Comment on above: Expected: 05/08/2025 (Approximate), Expires: 11/08/2025 Start: 05-08-2025 End: 05-08-2025 Patient encounter procedure 05/08/2025 11:20 AM EDT Routine [facility] [address] [phone] Sera Mckeon PA [address] [place], [place] [id number] [facility] Start: 05-01-2025 End: 05-01-2026 CULTURE, GROUP B STREP WITH SUSCEPTIBLITY CULTURE, GROUP B STREP WITH SUSCEPTIBLITY Lab Routine Third trimester ([facility]) Expected: 05/01/2025, Expires: 05/01/2026 [facility] Work Phone: Comment on above: Expected: 05/01/2025 , Expires: 05/01/2026 Start: 05-01-2025 End: 05-01-2025 Patient encounter procedure [facility] Comment on above: Arrived Start: 03-21-2025 End: 07-21-2025 US for US OB follow up transabdominal approach Imaging Routine Size of fetus inconsistent with dates in third trimester ([facility]) Expected: 03/21/2025, Expires: 07/21/2025 [facility] [...] PM EDT Routine [facility] [address] [phone] Andres Howell, [address] [place], [place] [address] [facility] Start: 01-23-2025 End: 01-23-2026 CBC panel - Blood by Automated count CBC Lab Routine Diabetes mellitus screening Expected: 01/23/2025 (Approximate), Expires: 01/23/2026 [facility] Work Phone: Comment on above: Expected: 01/23/2025 (Approximate), Expires: 01/23/2026 Start: 01-10-2025 End: 01-10-2025 Professional / ancillary services management 01/10/2025 2:30 PM EDT Ancillary Procedure [facility] [address] [place] [phone] [facility] Start: 12-26-2024 End: [...] gestational age Expected: 10/26/2024 (Approximate), Expires: 10/26/2025 [facility] Comment on above: Expected: 10/26/2024 (Approximate), Expires: 10/26/2025 Start: 10-26-2024 End: 10-26-2025 Blood type and Indirect antibody screen panel - Blood Type and screen Lab Routine Missed menses , unspecified gestational age Expected: 10/26/2024 (Approximate), Expires: 10/26/2025 [facility] Work Phone: Comment on above: Expected: 10/26/2024 (Approximate), Expires: 10/26/2025 Start: 10-26-2024 End: 10-26-2025 Drugs of abuse panel - Urine by Screen method Rapid drug screen, urine Lab Routine , unspecified gestational age Encounter for supervision of normal first in first trimester Expected: 10/26/2024 (Approximate), Expires: 10/26/2025 [facility] Comment on above: Expected: 10/26/2024 (Approximate), Expires: 10/26/2025 Bacteria identified in Urine by Culture Urine culture Microbiology Routine Missed menses Ordered: 10/26/2024 [facility] Comment on above: Ordered: 10/26/2024 CBC W Auto Different ial panel - Blood CBC and differential Lab Routine Missed menses , unspecified gestational age Ordered: 10/26/2024 [facility] Comment on above: Ordered: 10/26/2024 CHLAMYDIA TRACHOMATI S (GENITO/STI) CHLAMYDIA TRACHOMATIS (GENITO/STI) Lab Routine Vaginal discharge STD exposure Ordered: 12/26/2024 [facility] Comment on above: Ordered: 12/26/2024 Hemoglobin A1c/Hemoglobin.total in Blood Hemoglobin A1c Lab Routine Missed menses , unspecified gestational age Ordered: 10/26/2024 [facility] Comment on above: Ordered: 10/26/2024 Hepatitis B virus gardiner rface Ag [Presence] in Serum or Plasma by Immunoassay Hepatitis B surface antigen Lab Routine Missed menses , unspecified gestational age Ordered: 10/26/2024 [facility] Comment on above: Ordered: 10/26/2024 Hepatitis C virus Ab [Presence] in Serum or Plasma by Immunoassay Hepatitis C antibody Lab Routine Missed menses , unspecified gestational age Ordered: 10/26/2024 [facility] Comment on above: Ordered: 10/26/2024 HIV-1/HIV-2 antigen/antibody combination immunoassay HIV-1 and HIV-2 antibodies Lab Routine Missed menses , unspecified gestational age Ordered: 10/26/2024 [facility] Comment on above: Ordered: 10/26/2024 Neisseria gonorrhoea e DNA [Presence] in Unspecified specimen by JEROD with probe detection Neisseria gonorrhea DNA probe, direct Lab Routine Vaginal discharge STD exposure Ordered: 12/26/2024 [facility] Comment on above: Ordered: 12/26/2024 Reagin Ab [Presence] in Serum by RPR RPR Lab Routine Missed menses , unspecified gestational age Ordered: 10/26/2024 [facility] Comment on above: Ordered: 10/26/2024 Rubella antibody, IgG Rubella an tibody, IgG Lab Routine Missed menses , unspecified gestational age Ordered: 10/26/2024 [facility] Comment on above: Ordered: 10/26/2024 SURESWAB(R) ADVANCED VAGINITIS PLUS, TMA SURESWAB(R) ADVANCED VAGINITIS PLUS, TMA Pathology and Cytology Routine Vaginal discharge STD exposure Ordered: 12/26/2024 [facility] Work Phone: Comment on above: Ordered: 12/26/2024 Thyrotropin [Units/v olume] in Serum or Plasma TSH Lab Routine Thyroid disorder screening Ordered: 12/26/2024 [facility] Comment on above: Ordered: 12/26/2024 Thyroxine (T4) free [Mass/volume] in Serum or Plasma T4, free Lab Routine Thyroid disorder screening Ordered: 12/26/2024 [facility] Comment on above: Ordered: 12/26/2024 Payers Date Payer Category Payer Private Health Insurance [facility] [id number] 1998 Unknown [id number] 2.16.840.1.133146.3.579. 2.593 1998 Unknown [id number] 2.16.840.1.080940.3.579. 2.593 1998 Unknown [id number] 2.16840.1.045054.3.579. 2.593 1998 Unknown [id number] 2.16.840.1.018307.3.579. 2.593 1998 Unknown [id number] 2.16.840.1.180914.3.579. 2.593 1998 Unknown [id number] 2.16.840.1.243870.3.579. 2.593 1998 Unknown [id number] 2.16.840.1.325313.3.579. 2.593 1998 Unknown [id number] 2.16.840.1.201445.3.579. 2.593 1998 Unknown [id number] 2.16.840.1.399380.3.579. 2.593 1998 Unknown [id number] 2.16.840.1.721164.3.579. 2.593 1998 Unknown [id number] 2.16.840.1.235445.3.579. 2.593 1998 Unknown [id number] 2.16.840.1.968237.3.579. 2.593 1998 Unknown [id number] 2.16.840.1.026896.3.579. 2.593 1998 Unknown [id number] 2.16.840.1.859604.3.579. 2.1259 1998 Unknown [id number] 2.16.840.1.953342.3.579. 2.1259 1998 Unknown [id number] 2.16.840.1.409755.3.579. 2.125 1998 Unknown [id number] 2.16.840.1.425716.3.579. 2.1259 1998 Unknown [id number] 2.16.840.1.086506.3.579. 2.1259 1998 Unknown [id number] 2.16.840.1.145511.3.579. 2.1259 1998 Unknown [id number] 2.16.840.1.913504.3.579. 2.1259 1998 Unknown [id number] 2.16.840.1.748206.3.579. 2.1259 1998 Unknown [id number] 2.16.840.1.999518.3.579. 2.1259 1998 Unknown [id number] 2.16.840.1.112443.3.579. 2.1259 1998 Unknown [id number] 2.16.840.1.317834.3.579. 2.1259 1998 Unknown [id number] 2.16.840.1.826434.3.579. 2.1259 1998 Unknown [id number] 2.16.840.1.683487.3.579. 2.1259 1959 Private Health Insurance [id number] Self-pay [id number] Unknown [id number] 2.16.840.1.895232.3.579. 2.593 Social History Date Type Detail Facility Tobacco smoking stat [facility] Tobacco smoking consumption unknown [facility] Start: 09-05-2024 [facility] Start: 2000 Sex assigned at Not on file [facility] Gender identity Not [facility] file [facility] Medical Equipment Procedure Code Equipment Code Equipment Origin al Text Equipment Identifier Dates 1 strip by In Vi tro route Daily Use in the morning prior to breakfast, 1 hour after each meal for a total of 4times daily. [id number] Start: 12-26-2024 End: 01-25-2025 1 each by In Vit ro route Daily Use to check FSBS four times daily [id number] Start: 12-26-2024 End: 01-25-2025 Clinical Notes 07-28-2021 to 05-08-2025 ROB Rosenbaum - 05/08/2025 11:20 AM Eric Traore LPN - 05/01/2025 9:10 AM ROB العلي - 04/19/2025 8:30 AM Johanna Crooks NP - 03/21/2025 8:30 AM EDT [...] to check FSBS. Blood Glucose Monitoring Suppl ([employer] Glucometer) w/Device kit 1 kit, Does not [...] nursing note reviewed. Exam conducted with a cow rider present. Vitals: Estimated body mass index is 41.88 kg/m as calculated from the following: Height as of this encounter: 5' 2 . Weight as of this encounter: 229 lb. BP: 130/90 Patient's last menstrual period was 08/17/2024. ASSESSMENT & PLAN ICD-10-CM 1. Third trimester ([facility]) Z34.93 POCT urinalysis dipstick manually resulted 2. 37 weeks gestation of ([facility]) Z3A.37 Return OB: Patient presents today for [...] of: ROB Rosenbaum documented in this encounter [facility] 05-01-2025 History of Presen t illness Narrative Reason for Appointment: Patient ID: Rosanne Belcher is a 24 y.o. female who presents for No chief complaint on file. Patient presents today for Return OB appointment. MEDICATIONS Current Outpatient Medications Medication Instructions Alcohol Swabs (Alcohol Prep Pad) 70 % pads 1 Pad, Topical, Daily, Use four times daily to check FSBS. Blood Glucose Monitoring Suppl ([employer] Glucometer) w/Device kit 1 kit, Does not [...] nursing note reviewed. Exam conducted with a cow rider present. Vitals: There is no height or weight on file to calculate BMI. BP: 130/82 Patient's last menstrual period was 08/17/2024. ASSESSMENT & PLAN ICD-10-CM 1. 36 weeks gestation of ([facility]) Z3A.36 POCT urinalysis dipstick manually resulted 2. Third trimester ([facility]) Z34.93 POCT urinalysis dipstick manually resulted CULTURE, [...] Andres Howell DO documented in this encounter [facility] 04-19-2025 History of Presen t illness Narrative Reason for Appointment: Patient ID: Rosanne Belcher is a 24 y.o. female who presents for Routine Visit Patient presents today for Return OB appointment. MEDICATIONS Current Outpatient Medications Medication Instructions Alcohol Swabs (Alcohol Prep Pad) 70 % pads 1 Pad, Topical, Daily, Use four times daily to check FSBS. Blood Glucose Monitoring Suppl ([employer] Glucometer) w/Device kit 1 kit, Does not [...] PLAN ICD-10-CM 1. 34 weeks gestation of ([facility]) Z3A.34 POCT urinalysis dipstick manually resulted 2. Third trimester ([facility]) Z34.93 POCT urinalysis dipstick manually resulted Return [...] of: ROB Rosenbaum documented in this encounter [facility] 03-21-2025 History of Presen t illness Narrative Reason for Appointment: Patient ID: Rosanne Belcher is a 24 y.o. female who presents for Routine Visit Patient presents today for Return OB appointment. MEDICATIONS Current Outpatient Medications Medication Instructions Alcohol Swabs (Alcohol Prep Pad) 70 % pads 1 Pad, Topical, Daily, Use four times daily to check FSBS. Blood Glucose Monitoring Suppl ([employer] Glucometer) w/Device kit 1 kit, Does not [...] nursing note reviewed. Exam conducted with a cow rider present. Vitals: There is no height or weight on file to calculate BMI. BP: Patient's last menstrual period was 08/17/2024. ASSESSMENT & PLAN ICD-10-CM 1. Third trimester ([facility]) Z34.93 POCT urinalysis dipstick manually resulted 2. 30 weeks gestation of ([facility]) Z3A.30 Return OB: Patient presents today for [...] Kamila Crooks NP documented in this encounter [facility] 03-07-2025 History of Presen t illness Narrative Reason for Appointment: Patient ID: Rosanne Belcher is a 24 y.o. female who presents for Routine Visit Patient presents today for Return OB appointment. MEDICATIONS Current Outpatient Medications Medication Instructions Alcohol Swabs (Alcohol Prep Pad) 70 % pads 1 Pad, Topical, Daily, Use four times daily to check FSBS. Blood Glucose Monitoring Suppl ([employer] Glucometer) w/Device kit 1 kit, Does not [...] nursing note reviewed. Exam conducted with a cow rider present. Vitals: There is no height or [...] Andres Howell DO documented in this encounter [facility] 02-21-2025 History of Presen t illness Narrative [...] nursing note reviewed. Exam conducted with a cow rider present. Vitals: There is no height or [...] Sera Mckeon PA-C documented in this encounter [facility] 01-23-2025 History of Presen t illness Narrative [...] lb 15 oz F CS-Classical Spinal N ZIZY 1 Term 2019 39w6d 8 lb 3 [...] Felisha Espinoza LPN documented in this encounter [facility] 12-26-2024 History of Presen t illness Narrative [...] Andres Howell DO documented in this encounter [facility] 11-27-2024 History of Presen t illness Narrative [...] nursing note reviewed. Exam conducted with a cow rider present. Vitals: There is no height or [...] to clinic in 4 weeks. Documented by Katei Flowers LPN on behalf of: Andres Howell DO documented in this encounter [facility] 10-26-2024 History of Presen t illness Narrative [...] undercooked meat, and stay away from [facility]. Patient has also been advised to not [...] Mervat Carrera MA documented in this encounter [facility] 07-28-2021 Note DISCHARGE SUMMARY Discharge Date: 07-30-21 [...] Tylenol, any abdominal pain unrelieved with narcotics. IFC Signed and Approved by: DR ANDRES HOWELL . 08/05/2021 16:10:00 [facility] 07-28-2021 Note OPERATIVE NOTE OPERATION DATE: 07-28-21 ANESTHETIC:Spinal with Duramorph. WELDER [employer]AB:ADRIANA Rodriguez PREOPERATIVE DIAGNOSIS: 1. Intrauterine at 39 [...] and cut. Cord blood was obtained. The was handed off to awaiting team. The [...] to the Recovery Room in stable condition. [facility] Signed and Approved by: DR ANDRES HOWELL . 07/28/2021 18:54:00 [facility] Evaluation note Diagnosis Missed menses , unspecified [...] and content) DATE CREATED AUTHOR 01/01/2022 [facility] DATE CREATED AUTHOR AUTHOR'S ORGANIZ ATION 05/09/2025 [facility] EPIC Reason for Visit (unrecogniz ed section and content) Reason Comments Amenorrhea Reason Comments Routine Visit Care Teams (unrecognized sec tion and content) Feather Cutting Machine Feeder Relationship Specialty Start Date End Date Shilpi Blanton MD [address] [place] [phone] PCP - General Family Medicine 10/26/24 Fe[employer] Cutting Machine Feeder Relationship Specialty Start Date End Date Shilpi Blanton MD [address] [place] [phone] PCP - General Family Medicine 10/26/24 Feather Cutting Machine Feeder Relationship Specialty Start Date End Date Shilpi Blanton MD [address] [place] [phone] PCP - General Family Medicine 10/26/24 Feather Cutting Machine Feeder Relationship Specialty Start Date End Date Shilpi Blanton MD [address] [place] [phone] PCP - General Family Medicine 10/26/24 Feather Cutting Machine Feeder Relationship Specialty Start Date End Date Shilpi Blanton MD [address] [place] [phone] PCP - General Family Medicine 10/26/24 Feather Cutting Machine Feeder Relationship Specialty Start Date End Date Shilpi Blanton MD PCP - General Family Medicine 10/26/24 Feather Cutting Machine Feeder Relationship Specialty Start Date End Date Shilpi Blanton MD PCP - General Family Medicine 10/26/24 Feather Cutting Machine Feeder Relationship Specialty Start Date End Date Shilpi Blanton MD PCP - General Family Medicine 10/26/24 Feather Cutting Machine Feeder Relationship Specialty Start Date End Date Shilpi Blanton MD PCP - General Family Medicine 10/26/24 Feather Cutting Machine Feeder Relationship Specialty Start Date End Date Shilpi Blanton MD [address] [place] [facility] [phone] PCP - General Family Medicine 10/26/24 Feather Cutting Machine Feeder Relationship Specialty Start Date End Date Shilpi Blanton MD [address] [place] [facility] [phone] PCP - General Family Medicine 10/26/24 Fe[employer] Cutting Machine Feeder Relationship Specialty Start Date End Date Shilpi Blanton MD [address] [place] [facility] [place] [address] PCP - General Family Medicine 10/26/24 Feather Cutting Machine Feeder Relationship Specialty Start Date End Date Shilpi Blanton MD [address] [place] [facility] [place] [address] PCP - General Family Medicine 10/26/24 Fe[employer] Cutting Machine Feeder Relationship Specialty Start Date End Date Shilpi Blanton MD [address] [place] [facility] [place] [phone] PCP - General Family Medicine 10/26/24 Feather Cutting Machine Feeder Relationship Specialty Start Date End Date Shilpi Blanton MD [address] [place] [phone] PCP - General Family Medicine 10/26/24 [...] BE BASED ON THE PRIMARY CLINICAL RECORDS. [employer] provides no warranty or guarantee of the accuracy or completeness of information in this document.
[2025-05-12 13:12] VITALS: BP 114/55; PULSE 91; TEMP 36.2
== END 2025-05-12 13:45 | disposition home or self-care (01) ==
LOC: FBCO 12:57 → FBC 12:59
PROVIDERS: PCP Family Medicine; Visit Provider Obstetrics & Gynecology
DX: O16.3 Unspecified maternal hypertension, third trimester (principal); Z3A.38 38 weeks gestation of pregnancy
CPT/HCPCS: 59025

== ENCOUNTER 2025-05-16 08:09 | Outpatient (OUT) | payer MEDICAID, SELFPAY ==
--- NOTE | 2025-05-16 08:11 | US_ITS ---
The [address] [address] Patient Name: EMILY BELCHER MRN: [id number] date: 2000 Sex: F Assigned Patient Location: US Current Patient Location: Accession/Order Number: [id number] Exam Date: 05/16/2025 13:05 Report Date: 05/16/2025 13:06 At the request of: MAURICIO MCKEON Procedure: US OB BPP w non-stress Ultrasound biophysical profile HISTORY: -induced hypertension Adequate breathing movement, gross body movement, tone and amniotic fluid volume for total score of 8 out of 8. The amniotic fluid index is 16.2cm within normal limits. The heart rate 144 bpm. US/US OB BPP w non-stress IMPRESSION: Adequate ultrasound biophysical profile Impression dictated by: Beto Mcgee M.D. 05/16/2025 1:06 PM Dictation Location: [facility] Electronically authenticated by: [id number] Y Date: 05/16/2025 13:06
--- OUTSIDE RECORDS SUMMARY | 2025-05-16 08:19 | XMS_ITS | CCD ---
Author Organization [facility] Care Team Providers Care Golf Teacher Name Role Phone DANTE, DR CAMPOS Admitting [...] Unavailable BLANTON, DR SHILPI Rios Admitting Unavailable SPRING RUN, DR DARCY Mondragon Consulting Unavailable FRANNY, DR [...] Provider Franny GARRETT, Shilpi Primary Care Provider [phone] DANTE, ANDRES Attending Unavailable DANTE, ANDRES Attending Unavailable DANTE, ANDRES Referring Unavailable DANTE, ANDRES Attending Unavailable DANTE, ANDRES Attending Unavailable DANTE, ANDRES Attending Unavailable VALERIY, KAMILA Attending Unavailable VALERIY, KAMILA Referring Unavailable MIKESERA Attending Unavailable DANTE, ANDRES Attending Unavailable MIKE, SERA Attending Unavailable DANTE, ANDRES Attending Unavailable Allergies Allergy Classification Reported Allergen(s) Allergy Type Date of Onset Reaction(s) Facility (1 source) cefdinir Drug Allergy [facility] Repository (2 sources) Cephalosporins (Antibiotic) Drug allergy (disorder) [facility] Repository (1 source) Dextrothyroxine Drug Allergy [facility] Repository (20 sources) cefdinir Drug Allergy 5 [facility] (20 sources) Other Propensity to adverse reactions 5 [facility] Medications Current Medications Medication Drug Class(es) Dates [...] antepartum, gestational diabetes method of control unspecified ([facility]) , Elevated glucose tolerance test Apply 1 [...] of ] 05-01-2025 Episodic Residual codes; unclassified (4 sources) Gestation period, 37 weeks; Translations: [37 [...] Range Facility Urinalysis macro (dipstick) panel (U)on 05-14-2025 Bilirubin, UA Negative Negative - 4(70) +++ mg/dL [facility] Blood, UA Negative Negative - 50 Willard/mcL [facility] Clarity, UA Clear [facility] Color, UA Yellow [facility] Glucose, UA Negative Negative - 1999(110) ++++ mg/dL [facility] Interpretation and review of laboratory results Normal [facility] Ketones, UA Negative Negative - 160(16) ++++ mg/dL [facility] Leukocytes, UA Negative Negative - 500+++ Charlie/mcL [facility] Nitrite, UA Negative Negative - Positive [facility] pH, UA 6 5 - 9 [facility] Protein, UA Negative Negative - 1999(20) ++++ mg/dL [facility] Spec Grav, UA 1.015 1 - 1.03 [facility] Urobilinogen, UA 0.2 0.2 - 12 mg/dL [facility] TB TOTAL PROTEIN 24 HOUR UR INEon 05-11-2025 Interpretation and review of laboratory results Abnormal [facility] Protein (U) [Mass/Vol] 6.3 mg/dL NINF - 11.9 mg/dL [facility] TBH TOTAL PROTEIN 24 HOUR URINE 157.5 High NINF [facility] TOTAL VOLUME 24 HOUR URINE 2500 mL/24hr [facility] US OB BPP W NON-STRESS on 05-10-2025 [place] [address] Ultrasound Report Signed Patient: ROSANNE BELCHER MR#: [id number] : 2000 Acct:[id number] Age/Sex: 24 / F ADM Date: 05/09/25 Loc: US Attending Dr: Sera Mckeon Ordering Physician: Sera Mckeon Date of Service: 05/09/25 Procedure(s): US OB BPP w non-stress Accession Number(s): [id number] cc: Sera Mckeon; Shilpi Blanton M.D. The [place] [id number] Patient Name: ROSANNE BELCHER MRN: [facility]:[id number] date: 2000 Sex: F Assigned Patient Location: Current Patient Location: Accession/Order Number: [id number] Exam Date: 05/10/2025 09:03 Report Date: 05/10/2025 09:05 At the request of: SERA MCKEON Procedure: US OB BPP w non-stress Biophysical profile. Reason for exam: -induced hypertension COMPARISON: None TECHNIQUE: Transabdominal imaging of the gravid uterus was obtained. FINDINGS: The seasoner reports a BPP of 8 out of 8. [place]IS is normal at 15.5 cm. heart rate 136 bpm. Incidental note is made of right-sided pelviectasis. US/US OB BPP w non-stress IMPRESSION: BPP 8 out of 8. Right pelviectasis. Impression dictated by: Guanaco Davenport Jr., D.OYudi 05/10/2025 9:05 AM Dictation Location: [facility]23 Electronically authenticated by: [id number] Y Date: 05/10/2025 09:05 Dictated By: Guanaco Davenport M.D. Signed By: 05/10/25907 DD/ 4 TD/TT: Inspector [employer]: [facility] Radiology, Radiologist, - 05/10/2025 [place] [address] Ultrasound Report Signed Patient: ROSANNE BELCHER MR#: [id number] : 2000 Acct:[id number] Age/Sex: 24 / F ADM Date: 05/09/25 Loc: US Attending Dr: Sera Mckeon Ordering Physician: Sera Mckeon Date of Service: 05/09/25 Procedure(s): US OB BPP w non-stress Accession Number(s): [id number] cc: Sera Mckeon; Shilpi Blanton M.D. The [place] [address] Patient Name: ROSANNE BELCHER MRN: [facility]:[id number] date: 2000 Sex: F Assigned Patient Location: US Current Patient Location: Accession/Order Number: [id number] Exam Date: 05/10/2025 09:03 Report Date: 05/10/2025 09:05 At the request of: SERA MCKEON Procedure: US OB BPP w non-stress Biophysical profile. Reason for exam: -induced hypertension COMPARISON: None TECHNIQUE: Transabdominal imaging of the gravid uterus was obtained. FINDINGS: The seasoner reports a BPP of 8 out of 8. PARIS is normal at 15.5 cm. heart rate 136 bpm. Incidental note is made of right-sided pelviectasis. US/US OB BPP w non-stress IMPRESSION: BPP 8 out of 8. Right pelviectasis. Impression dictated by: Guanaco Davenport Jr., D.O. 05/10/2025 9:05 AM Dictation Location: [facility]-23 Electronically authenticated by: [id number] Y Date: 05/10/2025 09:05 Dictated By: Guanaco Davenport M.D. Signed By: 05/10/25907 DD/ 4 TD/TT: Inspector [employer]: [facility] Radiology Study observation (narrative) [facility] US OB BPP W NON-STRESS Ordered By: Radiologist Radiology on 05-10-2025 [facility] Work Phone: ALL CBC WITH AUTO DIFFon BASOPHILS ABSOLUTE AUTO 0 [facility] Basophils/100 WBC (Bld) 0.1 % Low 0.2 - 2.0 % [facility] Eosinophils/100 WBC (Bld) 0.9 % 0.9 - 7.0 % [facility] Erythrocyte distribution width (RBC) [Ratio] 13.9 % 11.0 - 15.0 % [facility] Hematocrit (Bld) [Volume fraction] 31.3 % Low 36.0 - 48.0 % [facility] Hemoglobin (Bld) [Mass/Vol] 10.1 g/dL Low 12.0 - 16.0 g/dL [facility] IMMATURE GRANULOCYTES ABS AUTO 0.01 [facility] Immature granulocytes/100 WBC (Bld) 0.1 % 0.0 - 0.5 % [facility] Interpretation and review of laboratory results Abnormal [facility] LYMPHOCYTES ABSOLUTE AUTO 1.6 [facility] Lymphocytes/100 WBC (Bld) 19.5 % Low 20.5 - 60.0 % [facility] MCH (RBC) [Entitic mass] 24.5 pg Low 26.7 - 34.0 pg [facility] MCHC (RBC) [Mass/Vol] 32.3 g/dL 29.9 - 35.2 g/dL [facility] MCV (RBC) [Entitic vol] 75.8 fL Low 81.0 - 99.0 fL [facility] MONOCYTES ABSOLUTE AUTO 0.7 [facility] Monocytes/100 WBC (Bld) 8.3 % 1.7 - 12.0 % [facility] NEUTROPHILS ABSOLUTE AUTO 5.8 [facility] Neutrophils/100 WBC (Bld) 71.1 % 43.0 - 75.0 % [facility] Platelet mean volume (Bld) [Entitic vol] 10.3 fL 9.5 - 13.5 fL [facility] TBH EO # 0.1 [facility] PLT 264 [facility] RBC 4.13 Low [facility] WBC 8.1 [facility] Urinalysis macro (dipstick) panel (U)on 05-08-2025 Bilirubin, UA Negative Negative - 4(70) +++ mg/dL [facility] Blood, UA Negative Negative - 50 Willard/mcL [facility] Clarity, UA Clear [facility] Color, UA Yellow [facility] Glucose, UA Negative Negative - 1999(110) ++++ mg/dL [facility] Interpretation and review of laboratory results Normal [facility] Ketones, UA Negative Negative - 160(16) ++++ mg/dL [facility] Leukocytes, UA Negative Negative - 500+++ Charlie/mcL [facility] Nitrite, UA Negative Negative - Positive [facility] pH, UA 6 5 - 9 [facility] Protein, UA Negative Negative - 1999(20) ++++ mg/dL [facility] Spec Grav, UA 1.02 1 - 1.03 [facility] Urobilinogen, UA 1.0 0.2 - 12 mg/dL [facility] Urinalysis macro (dipstick) panel (U)on 05-01-2025 Bilirubin, UA Negative Negative - 4(70) +++ mg/dL [facility] Blood, UA Negative Negative - 50 Willard/mcL [facility] Clarity, UA Clear [facility] Color, UA Yellow [facility] Glucose, UA Negative Negative - 1999(110) ++++ mg/dL [facility] Interpretation and review of laboratory results Normal [facility] Ketones, UA Negative Negative - 160(16) ++++ mg/dL [facility] Leukocytes, UA Negative Negative - 500+++ Charlie/mcL [facility] Nitrite, UA Negative Negative - Positive [facility] pH, UA 6 5 - 9 [facility] Protein, UA Negative Negative - 1999(20) ++++ mg/dL [facility] Spec Grav, UA 1.02 1 - 1.03 [facility] Urobilinogen, UA 1.0 0.2 - 12 mg/dL [...] UA Negative Negative - 4(70) +++ mg/dL [facility] Blood, UA Negative Negative - 50 Willard/mcL [facility] Clarity, UA Clear [facility] Color, UA Yellow [facility] Glucose, UA Negative Negative - 1999(110) ++++ mg/dL [facility] Interpretation and review of laboratory results Normal [facility] Ketones, UA Negative Negative - 160(16) ++++ mg/dL [facility] Leukocytes, UA Negative Negative - 500+++ Charlie/mcL [facility] Nitrite, UA Negative Negative - Positive [facility] pH, UA 6 5 - 9 [facility] Protein, UA Negative Negative - 1999(20) ++++ mg/dL [facility] Spec Grav, UA 1.01 1 - 1.03 [facility] Urobilinogen, UA 1.0 0.2 - 12 mg/dL [facility] Urinalysis macro (dipstick) panel (U)on 03-21-2025 Bilirubin, UA Negative Negative - 4(70) +++ mg/dL [facility] Blood, UA Negative Negative - 50 Willard/mcL [facility] Clarity, UA Clear [facility] Color, UA Yellow [facility] Glucose, UA Negative Negative - 1999(110) ++++ mg/dL [facility] Interpretation and review of laboratory results Normal [facility] Ketones, UA Negative Negative - 160(16) ++++ mg/dL [facility] Leukocytes, UA Negative Negative - 500+++ Charlie/mcL [facility] Nitrite, UA Negative Negative - Positive [facility] pH, UA 6.5 5 - 9 [facility] Protein, UA Negative Negative - 1999(20) ++++ mg/dL [facility] Spec Grav, UA 1.015 1 - 1.03 [facility] Urobilinogen, UA 0.2 0.2 - 12 mg/dL [facility] US OB GROWTHon 03-14-2025 [place] [address] Ultrasound Report Signed Patient: ROSANNE BELCHER MR#: [id number] : 2000 Acct:[id number] Age/Sex: 24 / F ADM Date: 03/14/25 Loc: US Attending Dr: Sera Mckeon Ordering Physician: Sera Mckeon Date of Service: 03/14/25 Procedure(s): US OB growth Accession Number(s): [id number] cc: Sera Mckeon; Shilpi Blanton M.D. [address] [address] Patient Name: ROSANNE BELCHER MRN: [facility]:[id number] date: 2000 Sex: F Assigned Patient Location: Current Patient Location: US Accession/Order Number: [id number] Exam Date: 03/14/2025 15:38 Report Date: 03/14/2025 [...] Jr., D.O. 03/14/2025 3:41 PM Dictation Location: [place] [address] Electronically authenticated by: [id number] Y Date: 03/14/2025 15:41 Dictated By: Guanaco Davenport M.D. Signed By: 03/14/25 1544 DD/ 1541 TD/TT: Inspector [employer]: [facility] Radiology, Radiologist, MD - 03/14/[address] [address] Ultrasound Report Signed Patient: ROSANNE BELCHER MR#: [id number] : 2000 Acct:[id number] Age/Sex: 24 / F ADM Date: 03/14/25 Loc: US Attending Dr: Sera Mckeon Ordering Physician: Sera Mckeon Date of Service: 03/14/25 Procedure(s): US OB growth Accession Number(s): [id number] cc: Sera Mckeon; Shilpi Blanton M.D. The [address] [address] Patient Name: ROSANNE BELCHER MRN: [facility]:[id number] date: 2000 Sex: F Assigned Patient Location: US Current Patient Location: US Accession/Order Number: [id number] Exam Date: 03/14/2025 15:38 Report Date: 03/14/2025 [...] Jr., D.O. 03/14/2025 3:41 PM Dictation Location: [place] [address] Electronically authenticated by: [id number] Y Date: 03/14/2025 15:41 Dictated By: Guanaco Davenport M.D. Signed By: 03/14/25 1544 DD/ 1541 TD/TT: Inspector [employer]: [facility] Radiology Study observation (narrative) [facility] US OB GROWTHOrdered By: Joaquin ologist Radiology on 03-14-2025 [facility] Work Phone: ALL CBC WITH AUTO DIFFon BASOPHILS ABSOLUTE AUTO 0 [facility] Basophils/100 WBC (Bld) 0.2 % 0.2 - 2.0 % [facility] Eosinophils/100 WBC (Bld) 1 % 0.9 - 7.0 % [facility] Erythrocyte distribution width (RBC) [Ratio] 12.4 % 11.0 - 15.0 % [facility] Hematocrit (Bld) [Volume fraction] 33.6 % Low 36.0 - 48.0 % [facility] Hemoglobin (Bld) [Mass/Vol] 11.1 g/dL Low 12.0 - 16.0 g/dL [facility] IMMATURE GRANULOCYTES ABS AUTO 0.02 [facility] Immature granulocytes/100 WBC (Bld) 0.2 % 0.0 - 0.5 % [facility] Interpretation and review of laboratory results Abnormal [facility] LYMPHOCYTES ABSOLUTE AUTO 1.6 [facility] Lymphocytes/100 WBC (Bld) 17.6 % Low 20.5 - 60.0 % [facility] MCH (RBC) [Entitic mass] 27.3 pg 26.7 - 34.0 pg [facility] MCHC (RBC) [Mass/Vol] 33 g/dL 29.9 - 35.2 g/dL [facility] MCV (RBC) [Entitic vol] 82.8 fL 81.0 - 99.0 fL [facility] MONOCYTES ABSOLUTE AUTO 0.5 [facility] Monocytes/100 WBC (Bld) 6.1 % 1.7 - 12.0 % [facility] NEUTROPHILS ABSOLUTE AUTO 6.6 High [facility] Neutrophils/100 WBC (Bld) 74.9 % 43.0 - 75.0 % [facility] Platelet mean volume (Bld) [Entitic vol] 10 fL 9.5 - 13.5 fL [facility] PLT 283 [facility] RBC 4.06 Low [facility] WBC 8.9 [facility] Urinalysis macro (dipstick) panel (U)on 03-07-2025 Bilirubin, UA Negative Negative - 4(70) +++ mg/dL [facility] Blood, UA Negative Negative - 50 Willard/mcL [facility] Clarity, UA Clear [facility] Color, UA Yellow [facility] Glucose, UA Negative Negative - 1999(110) ++++ mg/dL [facility] Interpretation and review of laboratory results Normal [facility] Ketones, UA Negative Negative - 160(16) ++++ mg/dL [facility] Leukocytes, UA Negative Negative - 500+++ Charlie/mcL [facility] Nitrite, UA Negative Negative - Positive [facility] pH, UA 6.5 5 - 9 [facility] Protein, UA Negative Negative - 1999(20) ++++ mg/dL [facility] Spec Grav, UA 1.015 1 - 1.03 [facility] Urobilinogen, UA 0.2 0.2 - 12 mg/dL [facility] Urinalysis macro (dipstick) panel (U)on 02-21-2025 Bilirubin, UA Negative Negative - 4(70) +++ mg/dL [facility] Blood, UA Negative Negative - 50 Willard/mcL [facility] Clarity, UA Clear [facility] Color, UA Yellow [facility] Glucose, UA Negative Negative - 1999(110) ++++ mg/dL [facility] Interpretation and review of laboratory results Normal [facility] Ketones, UA Negative Negative - 160(16) ++++ mg/dL [facility] Leukocytes, UA Negative Negative - 500+++ Charlie/mcL [facility] Nitrite, UA Negative Negative - Positive [facility] pH, UA 6.5 5 - 9 [facility] Protein, UA Negative Negative - 1999(20) ++++ mg/dL [facility] Spec Grav, UA 1.01 1 - 1.03 [facility] Urobilinogen, UA 0.2 0.2 - 12 mg/dL [facility] Urinalysis macro (dipstick) panel (U)on 01-23-2025 Bilirubin, UA Negative Negative - 4(70) +++ mg/dL [facility] Blood, UA Negative Negative - 50 Willard/mcL [facility] Clarity, UA Clear [facility] Color, UA Yellow [facility] Glucose, UA Negative Negative - 2000(110) ++++ mg/dL [facility] Interpretation and review of laboratory results Normal [facility] Ketones, UA Negative Negative - 160(16) ++++ mg/dL [facility] Leukocytes, UA Negative Negative - 500+++ Charlie/mcL [facility] Nitrite, UA Negative Negative - Positive [facility] pH, UA 6.5 5 - 9 [facility] Protein, UA Negative Negative - 2000(20) ++++ mg/dL [facility] Spec Grav, UA 1.02 1 - 1.03 [facility] Urobilinogen, UA 0.2 0.2 - 12 mg/dL [...] II, MD, PHD at 13-Jan-2025 06:46:09 PM [facility] Normal Not Available Comment on above: Order Comment: US OB ANATOMY SINGLE W US OB CERVICAL LENGTH Estimated Date of Delivery: 05/29/25 Gestational Age as of 12/26/2024: 18w0d RECURRENT VAGINITIS (HTRX)on 12-27-2024 ATOPOBIUM VAGINAE 0 [facility] ATOPOBIUM VAGINAE Not detected [facility] BVAB 2,3 (BACTERIAL VAGINOSIS ASSOCIATED BACTERIA 2, 3); MOBILUNCUS SPP 0 [facility] BVAB 2,3 (BACTERIAL VAGINOSIS ASSOCIATED BACTERIA 2, 3); MOBILUNCUS SPP Not detected [facility] TRICIA ALBICANS, PARAPSILOSIS, TROPICALIS 0 [facility] TRICIA ALBICANS, PARAPSILOSIS, TROPICALIS Not detected [facility] TRICIA GLABRATA 0 [facility] TRICIA GLABRATA Not detected [facility] TRICIA KRUSEI 0 [facility] TRICIA KRUSEI Not detected [facility] CHLAMYDIA TRACHOMATIS 0 [facility] CHLAMYDIA TRACHOMATIS Not detected [facility] GARDNERELLA VAGINALIS 0 [facility] GARDNERELLA VAGINALIS Not detected [facility] MEGASPHAERA (TYPES 1, 2) 0 [facility] MEGASPHAERA (TYPES 1, 2) Not detected [facility] MYCOPLASMA GENITALIUM 0 [facility] MYCOPLASMA GENITALIUM Not detected [facility] NEISSERIA GONORRHOEAE 0 [facility] NEISSERIA GONORRHOEAE Not detected [facility] TRICHOMONAS VAGINALIS 0 [facility] TRICHOMONAS VAGINALIS Not detected [facility] Urinalysis macro (dipstick) panel (U)Ordered By: Alison King on 12-26-2024 Bilirubin, UA Negative Negative - 4(70) +++ mg/dL [facility] Blood, UA Negative Negative - 50 Willard/mcL [facility] Clarity, UA Clear [facility] Color, UA Yellow [facility] Glucose, UA Negative Negative - 1999(110) ++++ mg/dL [facility] Interpretation and review of laboratory results Normal [facility] Ketones, UA Negative Negative - 160(16) ++++ mg/dL [facility] Leukocytes, UA Negative Negative - 500+++ Charlie/mcL [facility] Nitrite, UA Negative Negative - Positive [facility] pH, UA 6 5 - 9 [facility] Protein, UA Negative Negative - 1999(20) ++++ mg/dL [facility] Spec Grav, UA 1.02 1 - 1.03 [facility] Urobilinogen, UA 0.2 0.2 - 12 mg/dL [facility] GLUCOSE TOLERANCE 3 HOURon 0 12-20-2024 GLUCOSE TOLERANCE 3 HOUR mg/dL [facility] Comment on above: GLU FAST 93 (<95) Co l: 12/20/24 0741 GLU 1HR 141 (<180) Col: 12/20/24 0849 GLU 2HR 131 (<155) Col: 12/20/24 0949 GLU 3HR 99 (<140) Col: 12/20/24 1052 [facility] Urinalysis macro (dipstick) panel (U)on 11-27-2024 Bilirubin, UA Negative Negative - 4(70) +++ mg/dL [facility] Blood, UA Negative Negative - 50 Willard/mcL [facility] Clarity, UA Clear [facility] Color, UA Yellow [facility] Glucose, UA Negative Negative - 1999(110) ++++ mg/dL [facility] Interpretation and review of laboratory results Normal [facility] Ketones, UA Negative Negative - 160(16) ++++ mg/dL [facility] Leukocytes, UA Negative Negative - 500+++ Charlie/mcL [facility] Nitrite, UA Negative Negative - Positive [facility] pH, UA 5.5 5 - 9 [facility] Protein, UA Negative Negative - 1999(20) ++++ mg/dL [facility] Spec Grav, UA 1.005 1 - 1.03 [facility] Urobilinogen, UA 0.2 0.2 - 12 mg/dL [facility] MLR HEMOGLOBIN A1Con 025 Glucose [Mass/Vol] 120 mg/dL [facility] HbA1c (Bld) [Mass fraction] 5.8 % 4.5 - 6.2 % [facility] Comment on above: ADA RECOMMENDED LIMI T 4.0 - 6.0 ADA THERAPEUTIC TARGET < 7.0 ACTION SUGGESTED > 7.0 [facility] HCG ( test) Ql (U)o n 10-26-2024 Interpretation and review of laboratory results Abnormal [facility] Preg Test, Ur Positive Negative [facility] [...] report is generated using voice recognition reporting ([employer]). On occasion, Shahab P. Tabatabai, Brokercribe erroneously drops words from the report or [...] UA Negative Negative - 4(70) +++ mg/dL [facility] Blood, UA Negative Negative - 50 Willard/mcL [facility] Clarity, UA Clear [facility] Color, UA Yellow [facility] Glucose, UA Negative Negative - 2000(110) ++++ mg/dL [facility] Interpretation and review of laboratory results Normal [facility] Ketones, UA Negative Negative - 160(16) ++++ mg/dL [facility] Leukocytes, UA Negative Negative - 500+++ Charlie/mcL [facility] Nitrite, UA Negative Negative - Positive [facility] pH, UA 6.5 5 - 9 [facility] Protein, UA Negative Negative - 2000(20) ++++ mg/dL [facility] Spec Grav, UA 1.005 1 - 1.03 [facility] Urobilinogen, UA 0.2 0.2 - 12 mg/dL [...] DARCY AU Date: 2021-12-26 16:10 Normal [facility] CBC AUTO DIFFon 07-29-2021 BASO # 0.0 103/ul Normal 0.0-0.1 [facility] Comment on above: Performed By: #### D RUGRPD #### [facility] [address] [address] [address] Brian Abdi Basophils/100 WBC (Bld) 0.2 % Normal 0.2-2.0 [facility] Comment on above: Performed By: #### D RUGRPD #### [facility] [address] [place] [address] Dr. Brian Abdi EO # 0.1 103/ul Normal 0.0-0.7 [facility] Comment on above: Performed By: #### D RUGRPD #### [facility] [address] [place] [address] Dr. Brian Abdi Eosinophils/100 WBC (Bld) 0.5 % Critically low 0.9-7.0 [facility] Comment on above: Performed By: #### D RUGRPD #### [facility] [address] [place] [address] Dr. Brian Abdi Erythrocyte distribution width (RBC) [Ratio] 13.9 % Normal 11.0-15.0 [facility] Comment on above: Performed By: #### D RUGRPD #### [facility] [address] [place] [address] Dr. Brian Abdi Hematocrit (Bld) [Volume fraction] 25.7 % Critically low 36.0-48.0 [facility] Comment on above: Performed By: #### D RUGRPD #### [facility] [address] [place] [address] Dr. Brian Abdi Hemoglobin (Bld) [Mass/Vol] 8.2 g/dL Critically low 12.0-16.0 [facility] Comment on above: Result Comment: SURESH ENT DELIVERED Performed By: #### D RUGRPD #### [facility] [address] [place] [address] Dr. Brian Abdi IG # 0.04 10e3/ul Critically high 0.00-0.03 [facility] Comment on above: Performed By: #### D RUGRPD #### [facility] [address] [place] [address] Dr. Brian Abdi IG % 0.4 % Normal 0.0-0.5 [facility] Comment on above: Performed By: #### D RUGRPD #### [facility] [address] [address] [address] Brian Abdi LYMPH # 2.4 103/ul Normal 1.2-3.8 [facility] Comment on above: Performed By: #### D RUGRPD #### [facility] [address] [place] [address] Dr. Brian Abdi Lymphocytes/100 WBC (Bld) 23.6 % Normal 20.5-60.0 [facility] Comment on above: Performed By: #### D RUGRPD #### [facility] [address] [place] [address] Dr. Brian Abdi MANUAL DIFF REQ NO Normal [facility] Comment on above: Performed By: #### D RUGRPD #### [facility] [address] [place] [address] Dr. Brian Abdi MCH (RBC) [Entitic mass] 27.6 pg Normal 26.7-34.0 [facility] Comment on above: Performed By: #### D RUGRPD #### [facility] [address] [place] [address] Dr. Brian Abdi MCHC (RBC) [Mass/Vol] 31.9 g/dL Normal 29.9-35.2 [facility] Comment on above: Performed By: #### D RUGRPD #### [facility] [address] [place] [address] Dr. Brian Abdi MCV (RBC) [Entitic vol] 86.5 fL Normal 81.0-99.0 [facility] Comment on above: Performed By: #### D RUGRPD #### [facility] [address] [place] [address] Dr. Brian Abdi MONO # 0.7 103/ul Normal 0.3-0.8 [facility] Comment on above: Performed By: #### D RUGRPD #### [facility] [address] [place] [address] Dr. Brian Abdi Monocytes/100 WBC (Bld) 7.3 % Normal 1.7-12.0 [facility] Comment on above: Performed By: #### D RUGRPD #### [facility] [address] [address] [address] Brian Abdi NEUT # 6.8 103/ul Critically high 1.4-6.5 [facility] Comment on above: Performed By: #### D RUGRPD #### [facility] [address] [address] [address] Brian Abdi Neutrophils/100 WBC (Bld) 68.0 % Normal 43.0-75.0 [facility] Comment on above: Performed By: #### D RUGRPD #### [facility] [address] [place] [address] Dr. Brian Abdi Platelet mean volume (Bld) [Entitic vol] 9.8 fL Normal 9.5-13.5 [facility] Comment on above: Performed By: #### D RUGRPD #### [facility] [address] [place] [address] Dr. Brian Abdi PLT 204 103/ul Normal 150-450 [facility] Comment on above: Performed By: #### D RUGRPD #### [facility] [address] [place] [address] Dr. Brian Abdi RBC 2.97 106/ul Critically low 4.20-5.40 [facility] Comment on above: Performed By: #### D RUGRPD #### [facility] [address] [place] [address] Dr. Brian Abdi WBC 10.0 103/ul Normal 4.0-11.0 [facility] Comment on above: Performed By: #### D RUGRPD #### [facility] [address] [place] [address] Dr. Brian Abdi CBC AUTO DIFFon 07-28-2021 BASO # 0.0 103/ul Normal 0.0-0.1 [facility] Comment on above: Performed By: #### H H #### [facility] [address] [place] [address] Sunitha Ugalde Basophils/100 WBC (Bld) 0.3 % Normal 0.2-2.0 [facility] Comment on above: Performed By: #### H H #### [facility] [address] [place] [address] Sunitha Tram EO # 0.0 103/ul Normal 0.0-0.7 [facility] Comment on above: Performed By: #### H H #### [facility] [address] [place] [address] Sunitha Tram Eosinophils/100 WBC (Bld) 0.6 % Critically low 0.9-7.0 [facility] Comment on above: Performed By: #### H H #### [facility] [address] [place] [address] Sunitha Tram Erythrocyte distribution width (RBC) [Ratio] 14.1 % Normal 11.0-15.0 [facility] Comment on above: Performed By: #### H H #### [facility] [address] [place] [address] Sunitha Tram Hematocrit (Bld) [Volume fraction] 34.5 % Critically low 36.0-48.0 [facility] Comment on above: Performed By: #### H H #### [facility] [address] [place] [address] Sunitha Tram Hemoglobin (Bld) [Mass/Vol] 10.8 g/dL Critically low 12.0-16.0 [facility] Comment on above: Performed By: #### H H #### [facility] [address] [place] [address] Sunitha Tram IG # 0.02 10e3/ul Normal 0.00-0.03 [facility] Comment on above: Performed By: #### H H #### [facility] [address] [place] [address] Sunitha Tram IG % 0.3 % Normal 0.0-0.5 [facility] Comment on above: Performed By: #### H H #### [facility] [address] [place] [address] Sunitha Tram LYMPH # 1.8 103/ul Normal 1.2-3.8 [facility] Comment on above: Performed By: #### H H #### [facility] [address] [place], [place] [address] Sunithajack Ugalde Lymphocytes/100 WBC (Bld) 25.4 % Normal 20.5-60.0 [facility] Comment on above: Performed By: #### H H #### [facility] [address] [place], [place] [address] Sunitha Tram MANUAL DIFF REQ NO Normal [facility] Comment on above: Performed By: #### H H #### [facility] [address] [place], [place] [address] Sunithajack Salesen MCH (RBC) [Entitic mass] 27.3 pg Normal 26.7-34.0 [facility] Comment on above: Performed By: #### H H #### [facility] [address] [place] [address] Sunithajack Ugalde MCHC (RBC) [Mass/Vol] 31.3 g/dL Normal 29.9-35.2 [facility] Comment on above: Performed By: #### H H #### [facility] [address] [place] [address] Sunithajack Ugalde MCV (RBC) [Entitic vol] 87.3 fL Normal 81.0-99.0 [facility] Comment on above: Performed By: #### H H #### [facility] [address] [place] [address] Sunithajack Salesen MONO # 0.6 103/ul Normal 0.3-0.8 [facility] Comment on above: Performed By: #### H H #### [facility] [address] [place] [address] Sunitha Tram Monocytes/100 WBC (Bld) 8.7 % Normal 1.7-12.0 [facility] Comment on above: Performed By: #### H H #### [facility] [address] [place] [address] Sunitha Tram NEUT # 4.7 103/ul Normal 1.4-6.5 [facility] Comment on above: Performed By: #### H H #### [facility] [address] [place], [place] [address] Sunitha Tram Neutrophils/100 WBC (Bld) 64.7 % Normal 43.0-75.0 [facility] Comment on above: Performed By: #### H H #### [facility] [address] [place] [address] Sunitha Ugalde Platelet mean volume (Bld) [Entitic vol] 9.8 fL Normal 9.5-13.5 [facility] Comment on above: Performed By: #### H H #### [facility] [address] [place] [address] Sunitha Ugalde PLT 240 103/ul Normal 150-450 [facility] Comment on above: Performed By: #### H H #### [facility] [address] [place] [address] Sunitha Ugalde RBC 3.95 106/ul Critically low 4.20-5.40 [facility] Comment on above: Performed By: #### H H #### [facility] [address] [place] [address] Sunitha Ugalde WBC 7.3 103/ul Normal 4.0-11.0 [facility] Comment on above: Performed By: #### H H #### [facility] [address] [place] [address] Sunitha Ugalde DRUG SCREEN RAPID (URINE)on 07-28-2021 AMP Negative Normal NEGATIVE [facility] Comment on above: Performed By: #### D RUGRPD #### [facility] [address] [place] [address] Dr. Brian Abdi BAR Negative Normal NEGATIVE [facility] Comment on above: Performed By: #### D RUGRPD #### [facility] [address] [place] [address] Dr. Brian Abdi BUP Negative Normal NEGATIVE [facility] Comment on above: Performed By: #### D RUGRPD #### [facility] [address] [place] [address] Dr. Brian Abdi BZO Negative Normal NEGATIVE [facility] Comment on above: Performed By: #### D RUGRPD #### [facility] [address] [place] [address] Dr. Brian Abdi LISA Negative Normal NEGATIVE [facility] Comment on above: Performed By: #### D RUGRPD #### [facility] [address] [place] [address] Dr. Brian Abdi CUT-OFFS SEE BELOW Normal [facility] Comment on above: Result Comment: AMP [...] ng/mL Performed By: #### D RUGRPD #### [facility] [address] [place] [address] Dr. Brian Abdi DRUG CUT HEADER DRUG CLASS TEST SYSTEM CUT-OFF CONCENTRATIONS ARE FOLLOWS: Normal [facility] Comment on above: Performed By: #### D RUGRPD #### [facility] [address] [place] [address] Dr. Brian Abdi mAMP Negative Normal NEGATIVE [facility] Comment on above: Performed By: #### D RUGRPD #### [facility] [address] [place] [address] Dr. Brian Abdi MTD Negative Normal NEGATIVE [facility] Comment on above: Performed By: #### D RUGRPD #### [facility] [address] [place] [address] Dr. Brian Abdi OPI Negative Normal NEGATIVE [facility] Comment on above: Performed By: #### D RUGRPD #### [facility] [address] [place] [address] Dr. Brian Abdi OXY Negative Normal NEGATIVE [facility] Comment on above: Performed By: #### D RUGRPD #### [facility] [address] [place] [address] Dr. Brian Abdi PCP Negative Normal NEGATIVE [facility] Comment on above: Performed By: #### D RUGRPD #### [facility] [address] [place] [address] Dr. Brian Abdi PPX Negative Normal NEGATIVE [facility] Comment on above: Performed By: #### D RUGRPD #### [facility] [address] [place] [address] Dr. Brian Abdi TCA Negative Normal NEGATIVE [facility] Comment on above: Performed By: #### D RUGRPD #### [facility] [address] [place] [address] Dr. Brian Abdi THC Negative Normal NEGATIVE [facility] Comment on above: Performed By: #### D RUGRPD #### [facility] [address] [place] [address] Dr. Brian Abdi TYPE AND SCREENon 07-28-2021 TYPE AND SCREEN Negative Normal [facility] Comment on above: Performed By: #### T NS #### [facility] [address] [place] [address] Dr. Brian Abdi UA (CLEAN/CATCH) FAMILY PRACTICE NURSE PRACTITIONER/MICRO I F IND.on 07-28-2021 Bilirubin Ql (U) Negative Normal NEGATIVE [facility] Comment on above: Performed By: #### H H #### [facility] [address] [place] [address] Sunitha Tram Clarity (U) CLEAR Normal CLEAR [facility] Comment on above: Performed By: #### H H #### [facility] [address] [place] [address] Sunitha Tram Color (U) LT. YELLOW Normal YELLOW [facility] Comment on above: Performed By: #### H H #### [facility] [address] [place] [address] Sunitha Tram Glucose Ql (U) Negative Normal NEGATIVE [facility] Comment on above: Performed By: #### H H #### [facility] [address] [place] [address] Sunitha Tram Hemoglobin Ql (U) Negative Normal NEGATIVE [facility] Comment on above: Performed By: #### H H #### [facility] [address] [place] [address] Sunithajack Ugalde Ketones Ql (U) Negative Normal NEGATIVE [facility] Comment on above: Performed By: #### H H #### [facility] [address] [place] [address] Sunitha Tram LEUKOCYTES Negative Normal NEGATIVE [facility] Comment on above: Performed By: #### H H #### [facility] [address] [place] [address] Sunitha Tram Nitrite Ql (U) Negative Normal NEGATIVE [facility] Comment on above: Performed By: #### H H #### [facility] [address] [place] [address] Sunitha Ugalde pH (U) 6.0 [pH] Normal 5-9 [facility] Comment on above: Performed By: #### H H #### [facility] [address] [place] [address] Sunitha Ugalde SPEC GRAVITY <=1.005 Abnormal 1.005-<=1.025 [facility] Comment on above: Performed By: #### H H #### [facility] [address] [place] [address] Sunitha Ugalde UA PROTEIN Negative Normal NEGATIVE/ TRACE [facility] Comment on above: Performed By: #### H H #### [facility] [address] [place] [address] Sunitha Ugalde UR MICRO IND NOT INDICATED Normal [facility] Comment on above: Performed By: #### H H #### [facility] [address] [place] [address] Sunitha Ugalde Urobilinogen Qn (U) 0.2 {Fito'U}/dL Normal 0.2 - 1. 0 [facility] Comment on above: Performed By: #### H H #### [facility] [address] [place] [address] Sunitha Ugalde [facility]on 06[facility]28 SARS-CoV-2 (COVID-19) RNA JEROD+probe Ql (Unsp spec) Not detected Normal NOT DETECTED [facility] Comment on above: Result Comment: This test is not yet approved or cleared by the [place] FDA. When there are no FDA-approved or cleared tests available, and other criteria are met, FDA can make tests available under an emergency access mechanism called an Emergency Use Authorization (EUA). The EUA for this test is supported by the [place] of Health and Human Service's (HHS's) declaration [...] SARS-CoV-2. Performed By: #### D RUGRPD #### [facility] [address] [place] [address] Dr. Brian Abdi GROUP B STREP CULTUREon 06-27 S. agalactiae Ag Ql (Unsp spec) Culture Observations: GBS CALD TO TRAM TRAORE,TESSIE@/ 21/RK Isolate 1 [...] F Tetracycline <=0.25 S F Normal [facility] Comment on above: Performed By: #### G BSCX #### [facility] [address] [place] [address] Brian Abdi HEMOGRAM AND PLATELon 2020 Hematocrit (Bld) [Volume fraction] 33.7 % Critically low 36.0-48.0 [facility] Comment on above: Performed By: #### H H #### [facility] [address] [place], [place] [address] Sunitha Ugalde Hemoglobin (Bld) [Mass/Vol] 10.8 g/dL Critically low 12.0-16.0 [facility] Comment on above: Performed By: #### H H #### [facility] [address] [place], [place] [address] Sunitha Ugalde MCH (RBC) [Entitic mass] 28.3 pg Normal 26.7-34.0 [facility] Comment on above: Performed By: #### H H #### [facility] [address] [place] [address] Sunitha Ugalde MCHC (RBC) [Mass/Vol] 32.0 g/dL Normal 29.9-35.2 [facility] Comment on above: Performed By: #### H H #### [facility] [address] [place] [address] Sunitha Ugalde MCV (RBC) [Entitic vol] 88.2 fL Normal 81.0-99.0 [facility] Comment on above: Performed By: #### H H #### [facility] [address] [place], [place] [address] Sunitha Ugalde PLT 252 103/ul Normal 150-450 [facility] Comment on above: Performed By: #### H H #### [facility] [address] [place] [address] Sunithajack Salesen RBC 3.82 106/ul Critically low 4.20-5.40 [facility] Comment on above: Performed By: #### H H #### [facility] [address] [place], [place] [address] Sunitha Tram WBC 8.2 103/ul Normal 4.0-11.0 [facility] Comment on above: Performed By: #### H H #### [facility] [address] [place] [address] Sunitha Ugalde GLUCOSE - 1HRon 04-16-2021 Glucose [Mass/Vol] 129 mg/dL Critically high 74-106 [facility] Comment on above: Performed By: #### D RUGRPD #### [facility] [address] [address] [address] Brian Abdi HEMOGLOBINon 04-16-2021 Hemoglobin (Bld) [Mass/Vol] 10.8 g/dL Critically low 12.0-16.0 [facility] Comment on above: Performed By: #### H H #### [facility] [address] [id number] Sunitha Tram AFP MATERNAL FOR SPINA BIFID Aon 03-19-2021 AFP MoM 0.91 Normal [facility] Comment on above: Performed By: #### H H #### [facility] [address] [id number] Sunitha Tram AFP Value 47.2 ng/mL Normal [facility] Comment on above: Performed By: #### H H #### [facility] [address] [id number] Sunitha Tram AFP, Serum for Spina Bifida Report Normal [facility] Comment on above: Performed By: #### H H #### [facility] [address] [id number] Sunitha Tram Comment Comment Normal [facility] Comment on above: Result Comment: Isa Robles, Ph.D., [facility] Director . References: Available Upon Request. . Multiples Of Median Cutoffs For AFP Elevations Arroyo 2.5 Black 2.8 IDD 2.0 Twins 4.5 Abbreviation Definitions IDD - Insulin Dep Diabetes OSBR - Open Spina Bifida Risk . For further inquiries contact [facility] at [phone]. Performed By: #### H H #### [facility] [address] [id number] Sunitha Salgado Age Collection Date 20.1 weeks Normal [facility] Comment on above: Performed By: #### H H #### [facility] [address] [place], [place] [address] Sunitha Ugalde Gestat, Age Based on DLE [facility] Comment on above: Result Comment: 03/2021 Recalculations are not recommended when gestational dating by LMP and ultrasound are within 10 days. Performed By: #### H H #### [facility] [address] [place] [address] Sunitha Ugalde Insulin Dep Diabetes No Normal [facility] Comment on above: Performed By: #### H H #### [facility] [address] [place] [address] Sunithajack Ugalde Interpretation Comment Normal [facility] Comment on above: Result Comment: Inte [...] Customer Services to discuss available options. The [employer] recommends amniocentesis be offered to women age 35 and older. Performed By: #### H H #### [facility] [address] [place] [address] Sunithajack Ugalde [age] [address] [facility] Comment on above: Performed By: #### H H #### [facility] [address] [place] [address] Sunithajack Ugalde Multiple Gestation No Normal [facility] Comment on above: Performed By: #### H H #### [facility] [address] [place] [address] Sunitha Ugalde OS[place] 1 [place] [id number] Normal [facility] Comment on above: Performed By: #### H H #### [facility] [address] [place] [address] Sunitha Ugalde PDF . Normal [facility] Comment on above: Performed By: #### H H #### [facility] [address] [place] [address] Sunitha Ugalde Race Normal [facility] Comment on above: Performed By: #### H H #### [facility] [address] [place] [address] Sunitha Ugalde Test Results: Negative Normal [facility] Comment on above: Performed By: #### H H #### [facility] [address] [id number] Sunitha Ugalde US PREG ANATOMY SINGLEon US [...] TRENT LEE Date: 2021-03-17 11:10 Normal [facility] HEMOGLOBIN AND HEMATOCRITon 03-12-2021 Hematocrit (Bld) [Volume fraction] 34.4 % Critically low 36.0-48.0 [facility] Comment on above: Performed By: #### H H #### [facility] [address] [id number] Sunitha Ugalde Hemoglobin (Bld) [Mass/Vol] 11.3 g/dL Critically low 12.0-16.0 [facility] Comment on above: Performed By: #### H H #### [facility] [address] [id number] Sunithajack Salesen CHLAMYDIA/GONOCOCCUS JEROD (SW AB/URINE/PAPon 02-28-2021 Chlamydia trachomatis, JEROD Negative Normal Negative [facility] Comment on above: Performed By: #### C T/NGNA #### [facility] [address] [place], [place] [id number] Sunithajack Salesen Neisseria gonorrhoeae, JEROD Negative Normal Negative [facility] Comment on above: Performed By: #### C T/NGNA #### [facility] [address] [place], [place] [address] Sunithajack Ugalde PAP ACOG PANEL 2: 21 to 29on 02-28-2021 . . Normal [facility] Comment on above: Performed By: #### H H #### [facility] [address] [place] [address] Sunitha Ugalde Age Gdln ACOG Testing 19- Normal [facility] Comment on above: Performed By: #### H H #### [facility] [address] [place] [address] Sunitha Salesen DIAGNOSIS: Comment Normal [facility] Comment on above: Result Comment: NEGA TIVE FOR INTRAEPITHELIAL LESION OR MALIGNANCY. Performed By: #### H H #### [facility] [address] [place], [place] [address] Sunitha Ugalde Methodology: Comment Normal [facility] Comment on above: Result Comment: This liquid based ThinPrep(R) pap test was screened with the use of an image guided system. Performed By: #### H H #### [facility] [address] [place], [place] [address] Sunitha Ugalde Note: Comment Normal [facility] Comment on above: Result Comment: The Pap smear is a screening test designed to aid in the detection of premalignant and malignant conditions of the uterine cervix. It is not a diagnostic procedure and should not be used as the sole means of detecting cervical cancer. Both false-positive and false-negative reports do occur. . Performed By: #### H H #### [facility] [address] [place] [address] Sunitha Ugalde Performed by: Comment Normal [facility] Comment on above: Result Comment: Aixa Betancur, Mammography Technologist (ASCP) Performed By: #### H H #### [facility] [address] [place] [address] Sunithajack Ugalde Reflex Criteria: Comment Normal [facility] Comment on above: Result Comment: The HPV DNA reflex criteria were not met with this specimen result therefore, no HPV testing was performed. . Performed By: #### H H #### [facility] [address] [place] [address] Sunitha Tram Specimen adequacy: Comment Normal [facility] Comment on above: Result Comment: Sati sfactory for evaluation. No endocervical component is identified. Performed By: #### H H #### [facility] [address] [place] [address] Sunitha Ugalde VAGINITIS/VAGINOSIS DNA PROB Cnostantine 02-27-2021 Tricia species Negative Normal Negative [facility] Comment on above: Performed By: #### V AGINT #### [facility] [address] [place] [address] Sunitha Ugalde Gardnerella vaginalis Negative Normal Negative [facility] Comment on above: Performed By: #### V AGINT #### [facility] [address] [place] [address] Sunitha Ugalde Trichomonas vaginalis Negative Normal Negative [facility] Comment on above: Performed By: #### V AGINT #### [facility] [address] [place] [address] Sunitha Ugalde CULTURE URINEon 01-16-2021 CULTURE URINE [...] S F Tetracycline <=0.25 S F Normal [facility] Comment on above: Performed By: #### D RUGRPD #### [facility] [address] [place] [address] Dr. Brian Abdi HEP B SURFACE ANTIGEN SCREEN on 01-14-2021 HBsAg Screen Negative Normal Negative [facility] Comment on above: Performed By: #### H BSANS #### [facility] [address] [place] [address] Sunitha Ugalde HEPATITIS C VIRUS AB W/ REFL EX QUANTon 01-14-2021 HCV AB 0.1 s/co ratio Normal 0.0-0.9 [facility] Comment on above: Performed By: #### H H #### [facility] [address] [place] [address] Sunitha Ugalde Interpretation: Comment Normal [facility] Comment on above: Result Comment: Nega tive Not infected with HCV, unless recent infection is suspected or other evidence exists to indicate HCV infection. Performed By: #### H H #### [facility] [address] [place] [address] Sunitha Ugalde HIV 1 AND 2 WITH REFLEXon HIV Screen 4th Generation wRfx Non-Reactive Normal Non Reactive [facility] Comment on above: Performed By: #### D RUGRPD #### [facility] [address] [place] [address] Dr. Brian Abdi RPR QUANTon 01-14-2021 Rapid Plasma Reagin, Quant Non-Reactive Normal NonRea<1:1 [facility] Comment on above: Performed By: #### H H #### [facility] [address] [place] [address] Sunitha Ugalde RUBELLA AB IGGon 01-14-2021 Rubella Antibodies, IgG 1.27 index Normal Immune >0.99 [facility] Comment on above: Result Comment: Non- immune <0.90 Equivocal 0.90 - 0.99 Immune >0.99 Performed By: #### H H #### [facility] [address] [place] [address] Sunitha Ugalde CBC AUTO DIFFon 01-13-2021 BASO # 0.0 103/ul Normal 0.0-0.1 [facility] Comment on above: Performed By: #### C BC #### [facility] [address] [place] [address] Sunitha Ugalde Basophils/100 WBC (Bld) 0.4 % Normal 0.2-2.0 [facility] Comment on above: Performed By: #### C BC #### [facility] [address] [place] [address] Sunitha Tram EO # 0.1 103/ul Normal 0.0-0.7 [facility] Comment on above: Performed By: #### C BC #### [facility] [address] [place] [address] Sunitha Ugalde Eosinophils/100 WBC (Bld) 0.7 % Critically low 0.9-7.0 [facility] Comment on above: Performed By: #### C BC #### [facility] [address] [place] [address] Sunitha Ugalde Erythrocyte distribution width (RBC) [Ratio] 13.7 % Normal 11.0-15.0 [facility] Comment on above: Performed By: #### C BC #### [facility] [address] [place] [address] Sunitha Ugalde Hematocrit (Bld) [Volume fraction] 39.1 % Normal 36.0-48.0 [facility] Comment on above: Performed By: #### C BC #### [facility] [address] [place] [address] Sunitha Tram Hemoglobin (Bld) [Mass/Vol] 12.7 g/dL Normal 12.0-16.0 [facility] Comment on above: Performed By: #### C BC #### [facility] [address] [place] [address] Sunitha Tram IG # 0.02 10e3/ul Normal 0.00-0.03 [facility] Comment on above: Performed By: #### C BC #### [facility] [address] [place] [address] Sunitha Tram IG % 0.3 % Normal 0.0-0.5 [facility] Comment on above: Performed By: #### C BC #### [facility] [address] [place], [place] [id number] Sunithajack Ugalde LYMPH # 1.6 103/ul Normal 1.2-3.8 [facility] Comment on above: Performed By: #### C BC #### [facility] [address] [place], [place] [id number] Sunitha Ugalde Lymphocytes/100 WBC (Bld) 21.6 % Normal 20.5-60.0 [facility] Comment on above: Performed By: #### C BC #### [facility] [address] [place], [place] [id number] Sunitha Ugalde MANUAL DIFF REQ NO Normal [facility] Comment on above: Performed By: #### C BC #### [facility] [address] [place], [place] [id number] Sunithajack Ugalde MCH (RBC) [Entitic mass] 27.6 pg Normal 26.7-34.0 [facility] Comment on above: Performed By: #### C BC #### [facility] [address] [place], [place] [id number] Sunithajack Ugalde MCHC (RBC) [Mass/Vol] 32.5 g/dL Normal 29.9-35.2 [facility] Comment on above: Performed By: #### C BC #### [facility] [address] [place], [place] [address] Sunithajack Ugalde MCV (RBC) [Entitic vol] 85.0 fL Normal 81.0-99.0 [facility] Comment on above: Performed By: #### C BC #### [facility] [address] [place], [place] [address] Sunitha Tram MONO # 0.4 103/ul Normal 0.3-0.8 [facility] Comment on above: Performed By: #### C BC #### [facility] [address] [place], [place] [address] Sunitha Ugalde Monocytes/100 WBC (Bld) 5.4 % Normal 1.7-12.0 [facility] Comment on above: Performed By: #### C BC #### [facility] [address] [id number] Sunitha Tram NEUT # 5.4 103/ul Normal 1.4-6.5 [facility] Comment on above: Performed By: #### C BC #### [facility] [address] [id number] Sunithajack Salesen Neutrophils/100 WBC (Bld) 71.6 % Normal 43.0-75.0 [facility] Comment on above: Performed By: #### C BC #### [facility] [address] [id number] Sunithajack Ugalde Platelet mean volume (Bld) [Entitic vol] 9.3 fL Critically low 9.5-13.5 [facility] Comment on above: Performed By: #### C BC #### [facility] [address] [place], [place] [address] Sunitha Tram PLT 296 103/ul Normal 150-450 [facility] Comment on above: Performed By: #### C BC #### [facility] [address] [place], [place] [address] Sunitha Tram RBC 4.60 106/ul Normal 4.20-5.40 [facility] Comment on above: Performed By: #### C BC #### [facility] [address] [place], [place] [address] Sunitha Tram WBC 7.5 103/ul Normal 4.0-11.0 [facility] Comment on above: Performed By: #### C BC #### [facility] [address] [place], [place] [address] Sunitha Tram GLYCOHEMOGLOBIN A1Con 2020 ADA RECOMMENDATION ADA THERAPEUTIC TARGET 6.0 - 7.0 ACTION SUGGESTED > 7.0 Normal [facility] Comment on above: Performed By: #### A 1C #### [facility] [address] [id number] Sunithajack Ugalde Glucose [Mass/Vol] 111 mg/dL Normal [facility] Comment on above: Performed By: #### A 1C #### [facility] [address] [place], [place] [address] Sunitha Ugalde HbA1c (Bld) [Mass fraction] 5.5 % Normal <=6.0 [facility] Comment on above: Performed By: #### A 1C #### [facility] [address] [place], [place] [address] Sunitha Ugalde BARBI BOX TEST PT SEND OUTo n 01-13-2021 SENT TO REF LAB 01/13/21 Normal [facility] Comment on above: Performed By: #### D RUGRPD #### [facility] [address] [place], [place] [address] Dr. Brian Abdi TYPE AND SCREENon 01-13-2021 TYPE AND SCREEN Negative Normal [facility] Comment on above: Performed By: #### D RUGRPD #### [facility] [address] [place], [place] [address] Dr. Brian Abdi Vital Signs Date Time Vital Sign Value Performing Clinician Facility 05-14-2025 08:32-0400 Body mass index (BMI) [Ratio] 42.11 kg/m2 [employer] DO Work Phone: [facility] 05-14-2025 08:32-0400 Body weight 104.44 kg Andres Dante [employer] Work Phone: [facility] 05-14-2025 08:32-0400 Diastolic blood pressure 72 mm[Hg] Andres Dante DO Work Phone: [facility] 05-14-2025 08:32-0400 Systolic blood pressure 128 mm[Hg] Andres Dante DO Work Phone: [facility] 05-08-2025 12:00-0400 Body height 157.5 cm Sera RIVAS Work Phone: [facility] 05-08-2025 11:55-0400 Body mass index (BMI) [Ratio] 41.88 kg/m2 Sera RIVAS Work Phone: [facility] 05-08-2025 11:55-0400 Body weight 103.87 kg Sera RIVAS Work Phone: [facility] 05-08-2025 11:55-0400 Diastolic blood pressure 90 mm[Hg] Sera Mckeon PA Work Phone: [facility] 05-08-2025 11:55-0400 Systolic blood pressure 130 mm[Hg] Sera Mike PA Work Phone: [facility] 05-01-2025 09:17-0400 Body weight 103.15 kg Andres Dante DO Work Phone: [facility] 05-01-2025 09:17-0400 Diastolic blood pressure 82 mm[Hg] Andres Dante DO Work Phone: [facility] 05-01-2025 09:17-0400 Systolic blood pressure 130 mm[Hg] Andres Dante DO Work Phone: [facility] 04-19-2025 08:43-0400 Body weight 102.06 kg Sera Mckeon PA Work Phone: [facility] 04-19-2025 08:43-0400 Diastolic blood pressure 68 mm[Hg] Sera Mckeon PA Work Phone: [facility] 04-19-2025 08:43-0400 Systolic blood pressure 120 mm[Hg] Sera Mckeon PA Work Phone: [facility] 03-21-2025 09:04-0400 Body weight 99.79 kg Kamila Crooks RATE CLERK Work Phone: [facility] 03-21-2025 09:04-0400 Diastolic blood pressure 60 mm[Hg] Kamila Valeriy RATE CLERK Work Phone: [facility] 03-21-2025 09:04-0400 Systolic blood pressure 120 mm[Hg] Kamila Valeriy RATE CLERK Work Phone: [facility] 03-07-2025 15:18-0400 Body weight 99.97 kg Andres Dante DO Work Phone: [facility] 03-07-2025 15:18-0400 Diastolic blood pressure 70 mm[Hg] Andres Dante DO Work Phone: [facility] 03-07-2025 15:18-0400 Systolic blood pressure 120 mm[Hg] Andres Dante DO Work Phone: [facility] 02-21-2025 15:04-0400 Body weight 99.22 kg Andres Dante DO Work Phone: [facility] 02-21-2025 15:04-0400 Diastolic blood pressure 72 mm[Hg] Andres Dante DO Work Phone: [facility] 02-21-2025 15:04-0400 Systolic blood pressure 106 mm[Hg] Andres Dante DO Work Phone: [facility] 01-23-2025 15:00-0400 Body weight 96.98 kg Andres Dante DO Work Phone: [facility] 01-23-2025 15:00-0400 Diastolic blood pressure 70 mm[Hg] Andres Dante DO Work Phone: [facility] 01-23-2025 15:00-0400 Systolic blood pressure 120 mm[Hg] Andres Dante DO Work Phone: [facility] 12-26-2024 14:32-0400 Body weight 95.44 kg Andres Dante DO Work Phone: [facility] 12-26-2024 14:32-0400 Diastolic blood pressure 70 mm[Hg] Andres Dante DO Work Phone: [facility] 12-26-2024 14:32-0400 Systolic blood pressure 108 mm[Hg] Andres Dante DO Work Phone: [facility] 11-27-2024 14:37-0500 Body weight 96.53 kg Andres Dante DO Work Phone: [facility] 11-27-2024 14:37-0500 Diastolic blood pressure 70 mm[Hg] Andres Dante DO Work Phone: [facility] 11-27-2024 14:37-0500 Systolic blood pressure 122 mm[Hg] Andres Dante DO Work Phone: [facility] 10-26-2024 14:54-0500 Body weight 96.25 kg Noms Nurse [facility] 03-19-2021 02:06-0400 Body weight 83.[address] ANDRES HOWELL [facility] Comment on above: Performed By: #### HH #### [facility] [address] [place], [place] [address] Sunitha Ugalde Encounters Encounter Date Encounter Type Care Provider Facility Start: 05-14-2025 End: 05-14-2025 Bamboo flowsheet Andres Dante DO Work Phone: [facility] Start: 05-14-2025 End: 05-14-2025 Bamboo flowsheet Andres Dante DO Work Phone: [facility] Start: 05-14-2025 End: 05-14-2025 Office outpatient visit 15 minutes Andres Dante DO Work Phone: [facility] Comment on above: Third trimester preg ulises ([facility]); 37 weeks gestation of ([facility]) Start: 05-14-2025 End: 05-14-2025 ambulatory ANDRES DANTE Not Available Start: 05-11-2025 End: 05-11-2025 Clinisync Result Encounter [...] 05-09-2025 End: 05-09-2025 Clinisync Result Encounter Sera Mckeon ROB Work Phone: [facility] External Department Unsolicited Start: 05-08-2025 End: 05-08-2025 Bamboo flowsheet Sera Mckeon ROB Work Phone: [facility] Start: 05-08-2025 End: 05-08-2025 Bamboo flowsheet Sera RIVAS Work Phone: [facility] Start: 05-08-2025 End: 05-08-2025 ambulatory SERA MIKE Not Available Start: 05-08-2025 End: 05-08-2025 Office outpatient visit 15 minutes Sera Mike PA Work Phone: [facility] Comment on above: Third trimester preg ulises ([facility]); 37 weeks gestation of ([facility]); induced hypertension, antepartum ([facility]) Start: 05-01-2025 End: 05-01-2025 Bamboo flowsheet Andres Dante DO Work Phone: [facility] Start: 05-01-2025 End: 05-01-2025 Bamboo flowsheet Andres Dante DO Work Phone: [facility] Start: 05-01-2025 End: 05-01-2025 flow sheet Andres Dante DO Work Phone: [facility] Comment on above: 36 weeks gestation o f ([facility]); Third trimester ([facility]); H/O section Start: 05-01-2025 End: 05-01-2025 ambulatory ANDRES DANTE Not Available Start: 04-19-2025 End: 04-19-2025 Office outpatient visit 15 minutes Sera RIVAS Work Phone: [facility] Comment on above: 34 weeks gestation o f ([facility]); Third trimester ([facility]) Start: 04-19-2025 End: 04-19-2025 ambulatory SERA MCKEON Not Available Start: 03-21-2025 End: 03-21-2025 Bamboo flowsheet Kamila Crooks RATE CLERK Work Phone: [facility] Start: 03-21-2025 End: 03-21-2025 Bamboo flowsheet Kamila Valeriy RATE CLERK Work Phone: [facility] Start: 03-21-2025 End: 03-21-2025 flow sheet Kamila Valeriy RATE CLERK Work Phone: [facility] Comment on above: Size of fetus incons istent with dates in third trimester ([facility]) (Primary Dx); Third trimester ([facility]); 30 weeks gestation of ([facility]) Start: 03-21-2025 End: 03-21-2025 ambulatory KAMILA CROOKS Not Available Start: 03-14-2025 End: 03-14-2025 Clinisync Result Encounter Sera RIVAS Work Phone: [facility] External Department Unsolicited Start: 03-14-2025 End: 03-14-2025 Clinisync Result Encounter Sera RIVAS Work Phone: [facility] External Department Unsolicited Start: 03-07-2025 End: 03-07-2025 [...] screening Start: 01-23-2025 End: 01-23-2025 Bamboo flowsheet Andrse Dante DO Work Phone: [facility] [...] Result Encounter Andres Dante DO Work Phone: [facility] External Department Unsolicited Start: 12-26-2024 End: 12-26-2024 Patient encounter procedure Andres Dante DO Work Phone: [facility] Start: 12-26-2024 End: 12-26-2024 flow sheet Andres Dante DO Work Phone: [facility] Comment on above: Second [...] Result Encounter Andres Dante DO Work Phone: [facility] External Department Unsolicited Start: 12-20-2024 End: 12-20-2024 Clinisync Result Encounter Andres Dante DO Work Phone: [facility] External Department Unsolicited Start: 11-27-2024 End: 11-27-2024 flow sheet Andres Dante DO Work Phone: [facility] Comment on above: 13 weeks gestation o f ; Second trimester Start: 11-27-2024 End: 11-27-2024 ambulatory ANDRES DANTE Not Available Start: 11-27-2024 End: 11-27-2024 Bamboo flowsheet Andres Dante DO Work Phone: [facility] Start: 11-27-2024 End: 11-27-2024 Bamboo flowsheet Andres Dante DO Work Phone: [facility] Start: 11-17-2024 End: 11-17-2024 Clinisync Result Encounter Andres Dante DO Work Phone: [facility] External Department Unsolicited Start: 11-17-2024 End: 11-17-2024 Clinisync Result Encounter Andres Dante DO Work Phone: [facility] Unsolicited Start: 10-26-2024 End: 10-26-2024 ambulatory ANDRES HOWELL Not Available Start: 10-26-2024 End: 10-26-2024 Office [...] for preprocedural laboratory examination DR ANDRES HOWELL [facility] Start: 07-22-2021 End: 07-22-[address] [...] Date Procedure Procedure Detail Performing Clinician Start: 05-14-2025 Urnls dip stick/tabl et rgnt non-auto w/o micrscp Andres Dante DO Work Phone: Start: 05-11-2025 TBH TOTAL PROTEIN 24 HOUR [...] stick/tabl et rgnt non-auto w/o micrscp Andres Ingramo DO Work Phone: Start: 12-26-2024 RECURRENT VAGINITIS (HTRX) Andres Howell DO Work Phone: Start: 12-20-2024 GLUCOSE TOLERANCE 3 HOUR Andres Howell DO Work Phone: Start: 11-27-2024 Urnls dip stick/tabl et rgnt non-auto w/o micrscp Andres Ingramo DO Work Phone: Start: 11-17-2024 MLR HEMOGLOBIN A1C Zuly Howell DO Work Phone: Start: 10-26-2024 End: 10-26-2024 Urnls dip stick/tablet rgnt non-auto w/o micrscp Andres Howell DO Work Phone: Start: 07-28-2021 Extraction of Produc ts of Conception, Low Cervical, Open Approach DR ANDRES HOWELL H/O: section H/O sectio n Andres Howell DO Work Phone: Plan of Treatment Date Care Activity Detail Author Start: 05-21-2025 End: 05-21-2025 Patient encounter procedure 05/21/2025 9:30 AM EDT Routine [facility] [address] [facility] [place] [phone] Andres Howell DO [address] [place] [address] ANA RUTLEDGE Start: 05-17-2025 End: 05-17-2025 Professional / ancillary services management [facility] Start: 05-14-2025 End: 05-14-2025 Patient encounter procedure ANA RUTLEDGE Comment on above: Arrived Start: 05-08-2025 End: 05-08-2026 Alanine aminotransferase [Enzymatic activity/volume] in Serum or Plasma ALT Lab Routine induced hypertension, antepartum ([facility]) Expected: 05/08/2025 (Approximate), Expires: 05/08/2026 [facility] Comment on above: Expected: 05/08/2025 (Approximate), Expires: 05/08/2026 Start: 05-08-2025 End: 05-08-2026 Aspartate aminotransferase [Enzymatic activity/volume] in Serum or Plasma AST Lab Routine induced hypertension, antepartum ([facility]) Expected: 05/08/2025 (Approximate), Expires: 05/08/2026 [facility] Comment on above: Expected: 05/08/2025 (Approximate), Expires: 05/08/2026 Start: 05-08-2025 End: 05-08-2026 CBC W Auto Differential panel - Blood CBC and differential Lab Routine induced hypertension, antepartum ([facility]) Expected: 05/08/2025 (Approximate), Expires: 05/08/2026 [facility] Comment on above: Expected: 05/08/2025 (Approximate), Expires: 05/08/2026 Start: 05-08-2025 End: 05-08-2026 Creatinine [Mass/volume] in Serum or Plasma Creatinine Lab Routine induced hypertension, antepartum ([facility]) Expected: 05/08/2025 (Approximate), Expires: 05/08/2026 [facility] Work Phone: Comment on above: Expected: 05/08/2025 (Approximate), Expires: 05/08/2026 Start: 05-08-2025 End: 05-08-2026 Lactate dehydrogenase [Enzymatic activity/volume] in Serum or Plasma by Lactate to pyruvate reaction Lactate dehydrogenase Lab Routine induced hypertension, antepartum ([facility]) Expected: 05/08/2025, Expires: 05/08/2026 [facility] Comment on above: Expected: 05/08/2025 , Expires: 05/08/2026 Start: 05-08-2025 End: 05-08-2026 Protein, urine, 24 hour Protein, urine, 24 hour Lab Routine induced hypertension, antepartum ([facility]) Expected: 05/08/2025 (Approximate), Expires: 05/08/2026 [facility] Comment on above: Expected: 05/08/2025 (Approximate), Expires: 05/08/2026 Start: 05-08-2025 End: 05-08-2026 Pt and ptt Pt and ptt Lab Routine induced hypertension, antepartum ([facility]) Expected: 05/08/2025, Expires: 05/08/2026 [facility] Comment on above: Expected: 05/08/2025 , Expires: 05/08/2026 Start: 05-08-2025 End: 05-08-2026 Urate [Mass/volume] in Serum or Plasma Uric acid Lab Routine induced hypertension, antepartum ([facility]) Expected: 05/08/2025 (Approximate), Expires: 05/08/2026 [facility] Comment on above: Expected: 05/08/2025 (Approximate), Expires: 05/08/2026 Start: 05-08-2025 End: 05-08-2026 Urea nitrogen [Mass/volume] in Serum or Plasma BUN Lab Routine induced hypertension, antepartum ([facility]) Expected: 05/08/2025, Expires: 05/08/2026 [facility] Comment on above: Expected: 05/08/2025 , Expires: 05/08/2026 Start: 05-08-2025 End: 11-08-2025 US biophysical profile w non stress test US biophysical profile w non stress test Imaging Routine induced hypertension, antepartum ([facility]) Expected: 05/08/2025 (Approximate), Expires: 11/08/2025 [facility] Comment on above: Expected: 05/08/2025 (Approximate), Expires: 11/08/2025 Start: 05-08-2025 End: 05-08-2025 Patient encounter procedure 05/08/2025 11:20 AM EDT Routine [facility] [address] [facility] [place] [phone] Sera Mckeon PA [address] [place] [address] ANA RUTLEDGE Start: 05-01-2025 End: 05-01-2026 CULTURE, GROUP B STREP WITH SUSCEPTIBLITY CULTURE, GROUP B STREP WITH SUSCEPTIBLITY Lab Routine Third trimester ([facility]) Expected: 05/01/2025, Expires: 05/01/2026 [facility] Work Phone: Comment on above: Expected: 05/01/2025 , Expires: 05/01/2026 Start: 05-01-2025 End: 05-01-2025 Patient encounter procedure [facility] Comment on above: Arrived Start: 03-21-2025 End: 07-21-2025 US for US OB follow up transabdominal approach Imaging Routine Size of fetus inconsistent with dates in third trimester ([facility]) Expected: 03/21/2025, Expires: 07/21/2025 [facility] Work [...] PM EDT Routine [facility] [address] [place] [id number] Andres Howell DO [address] [place] [address] [facility] Start: 01-23-2025 End: 01-23-2026 CBC panel - Blood by Automated count CBC Lab Routine Diabetes mellitus screening Expected: 01/23/2025 (Approximate), Expires: 01/23/2026 [facility] Work Phone: Comment on above: Expected: 01/23/2025 (Approximate), Expires: 01/23/2026 Start: 01-10-2025 End: 01-10-2025 Professional / ancillary services management 01/10/2025 2:30 PM EDT Ancillary Procedure [facility] [address] [facility] [place] [phone] [facility] Start: 12-26-2024 End: 02-25-2025 [...] Expected: 10/26/2024 (Approximate), Expires: 10/26/2025 [facility] Work Phone: Comment on above: Expected: 10/26/2024 (Approximate), Expires: 10/26/2025 Start: 10-26-2024 End: 10-26-2025 Drugs of abuse panel - Urine by Screen method Rapid drug screen, urine Lab Routine , unspecified gestational age Encounter for supervision of normal first in first trimester Expected: 10/26/2024 (Approximate), Expires: 10/26/2025 [facility] Comment on above: Expected: 10/26/2024 (Approximate), Expires: 10/26/2025 Bacteria identified in Urine by Culture Urine culture Microbiology Routine Missed menses Ordered: 10/26/2024 [facility] Comment on above: Ordered: 10/26/2024 CBC W Auto Different ial panel - Blood CBC and differential Lab Routine Missed menses , unspecified gestational age Ordered: 10/26/2024 [facility] Comment on above: Ordered: 10/26/2024 CHLAMYDIA TRACHOMATI S (GENITO/STI) CHLAMYDIA TRACHOMATIS (GENITO/STI) Lab Routine Vaginal discharge STD exposure Ordered: 12/26/2024 [facility] Comment on above: Ordered: 12/26/2024 Hemoglobin A1c/Hemoglobin.total in Blood Hemoglobin A1c Lab Routine Missed menses , unspecified gestational age Ordered: 10/26/2024 [facility] Comment on above: Ordered: 10/26/2024 Hepatitis B virus gardiner rface Ag [Presence] in Serum or Plasma by Immunoassay Hepatitis B surface antigen Lab Routine Missed menses , unspecified gestational age Ordered: 10/26/2024 [facility] Comment on above: Ordered: 10/26/2024 Hepatitis C virus Ab [Presence] in Serum or Plasma by Immunoassay Hepatitis C antibody Lab Routine Missed menses , unspecified gestational age Ordered: 10/26/2024 [facility] Comment on above: Ordered: 10/26/2024 HIV-1/HIV-2 antigen/antibody combination immunoassay HIV-1 and HIV-2 antibodies Lab Routine Missed menses , unspecified gestational age Ordered: 10/26/2024 [facility] Comment on above: Ordered: 10/26/2024 Neisseria gonorrhoea e DNA [Presence] in Unspecified specimen by JEROD with probe detection Neisseria gonorrhea DNA probe, direct Lab Routine Vaginal discharge STD exposure Ordered: 12/26/2024 [facility] Comment on above: Ordered: 12/26/2024 Reagin Ab [Presence] in Serum by RPR RPR Lab Routine Missed menses , unspecified gestational age Ordered: 10/26/2024 [facility] Comment on above: Ordered: 10/26/2024 Rubella antibody, IgG Rubella an tibody, IgG Lab Routine Missed menses , unspecified gestational age Ordered: 10/26/2024 [facility] Comment on above: Ordered: 10/26/2024 SURESWAB(R) ADVANCED VAGINITIS PLUS, TMA SURESWAB(R) ADVANCED VAGINITIS PLUS, TMA Pathology and Cytology Routine Vaginal discharge STD exposure Ordered: 12/26/2024 [facility] Work Phone: Comment on above: Ordered: 12/26/2024 Thyrotropin [Units/v olume] in Serum or Plasma TSH Lab Routine Thyroid disorder screening Ordered: 12/26/2024 [facility] Comment on above: Ordered: 12/26/2024 Thyroxine (T4) free [Mass/volume] in Serum or Plasma T4, free Lab Routine Thyroid disorder screening Ordered: 12/26/2024 [facility] Comment on above: Ordered: 12/26/2024 Payers Date Payer Category Payer Medicaid [place]ICA[place] [id number] 2025 Medicaid [id number] 2024 Private Health Insurance [facility] [id number] 1998 Unknown [id number] 2.16.840.1.047869.3.579.2. 593 1998 Unknown [id number] 2.16.840.1.762656.3.579.2. 593 1998 Unknown [id number] 2.16.840.1.513401.3.579.2. 593 1998 Unknown [id number] 2.16.840.1.265185.3.579.2. 593 1998 Unknown [id number] 2.16.840.1.586013.3.579.2. 593 1998 Unknown [id number] 2.16.840.1.249954.3.579.2. 593 1998 Unknown [id number] 2.16.840.1.980612.3.579.2. 593 1998 Unknown [id number] 2.16.840.1.081123.3.579.2. 593 1998 Unknown [id number] 2.16.840.1.211710.3.579.2. 593 1998 Unknown [id number] 2.16.840.1.467600.3.579.2. 593 1998 Unknown [id number] 2.16.840.1.474968.3.579.2. 593 1998 Unknown [id number] 2.16.840.1.961990.3.579.2. 593 1998 Unknown [id number] 2.16.840.1.846227.3.579.2. 593 1998 Unknown [id number] 2.16.840.1.415448.3.579.2. 1258 1998 Unknown [id number] 2.16.840.1.448736.3.579.2. 9 1998 Unknown [id number] 2.16.840.1.707348.3.579.2. 1258 1998 Unknown [id number] 2.16.840.1.933715.3.579.2. 1258 1998 Unknown [id number] 2.16.840.1.558168.3.579.2. 1258 1998 Unknown [id number] 2.16.840.1.464137.3.579.2. 1258 1998 Unknown [id number] 2.16840.1.968517.3.579.2. 1258 1998 Unknown [id number] 2.16.840.1.158562.3.579.2. 1258 1998 Unknown [id number] 2.16.840.1.509873.3.579.2. 1258 1998 Unknown [id number] 2.16.840.1.583737.3.579.2. 1258 1998 Unknown [id number] 2.16840.1.060150.3.579.2. 1258 1998 Unknown [id number] 2.16.840.1.826877.3.579.2. 1258 1998 Unknown [id number] 2.16840.1.513503.3.579.2. 1258 1998 Unknown [id number] 2.16840.1.866588.3.579.2. 1259 1959 Private Health Insurance [id number] 1959 Self-pay [id number] Unknown [id number] 2.16840.1.348929.3.579.2. 593 Social History Date Type Detail Facility Tobacco smoking stat [facility] Tobacco smoking consumption unknown [facility] [...] meal for a total of 4times daily. [id number] Start: 12-26-2024 End: 01-25-2025 1 each by In Vit ro route Daily Use to check FSBS four times daily [id number] Start: 12-26-2024 End: 01-25-2025 Clinical Notes 07-28-2021 to 05-14-2025 Katie Flowers, FLOOR ATTENDANT - 05/14/2025 8:30 AM ROB العلي - 05/08/2025 11:20 AM EDTTram Traore FLOOR ATTENDANT - 05/01/2025 9:10 AM ROB العلي - 04/19/2025 8:30 AM EDT Note Date & Type Note Facility 05-14-2025 History of Presen t illness Narrative Reason [...] nursing note reviewed. Exam conducted with a cost control specialist present. Vitals: Estimated body mass index is 42.11 kg/m as calculated from the following: Height as of 05/08/25: 5' 2 . Weight as of this encounter: 230 lb 4 oz. BP: 128/72 Patient's last menstrual period was 08/17/2024. ASSESSMENT & PLAN ICD-10-CM 1. Third trimester ([facility]) Z34.93 POCT urinalysis dipstick manually resulted 2. 37 weeks gestation of ([facility]) Z3A.37 Patient presents today for a routine obstetrics appointment. Patient is currently 37w6d with a Estimated Date of Delivery: 05/29/25. Patient voiced that she has been having an increase in BP and has NST/BPP's scheduled for Wednesday. Patient voiced that she is having contractions. Patient to RTC in 1 week for routine OB appointment. Documented by Katie Flowers LPN on behalf of: Andres Howell DO documented in this encounter [facility] 05-08-2025 History of Presen t illness Narrative Reason for Appointment: Patient ID: Rosanne Belcher is a 24 y.o. female who presents for Routine Visit Patient presents today for Return OB appointment. MEDICATIONS Current Outpatient Medications Medication Instructions Alcohol Swabs (Alcohol Prep Pad) 70 % pads 1 Pad, Topical, Daily, Use four times daily to check FSBS. Blood Glucose Monitoring Suppl ([employer]-Access MediQuip Glucometer) w/Device kit 1 kit, Does not [...] nursing note reviewed. Exam conducted with a cost control specialist present. Vitals: Estimated body mass index is 41.88 kg/m as calculated from the following: Height as of this encounter: 5' 2 . Weight as of this encounter: 229 lb. BP: 130/90 Patient's last menstrual period was 08/17/2024. ASSESSMENT & PLAN ICD-10-CM 1. Third trimester ([facility]) Z34.93 POCT urinalysis dipstick manually resulted 2. 37 weeks gestation of ([facility]) Z3A.37 Return OB: Patient presents [...] of: ROB Rosenbaum documented in this encounter [facility] 05-01-2025 History of Presen t illness Narrative [...] nursing note reviewed. Exam conducted with a cost control specialist present. Vitals: There is no height or weight on file to calculate BMI. BP: 130/82 Patient's last menstrual period was 08/17/2024. ASSESSMENT & PLAN ICD-10-CM 1. 36 weeks gestation of ([facility]) Z3A.36 POCT urinalysis dipstick manually resulted 2. Third trimester ([facility]) Z34.93 POCT urinalysis dipstick manually [...] Andres Howell DO documented in this encounter [facility] 04-19-2025 History of Presen t illness Narrative Reason for Appointment: Patient ID: Rosanne Belcher is a 24 y.o. female who presents for Routine Visit Patient presents today for Return OB appointment. MEDICATIONS Current Outpatient Medications Medication Instructions Alcohol Swabs (Alcohol Prep Pad) 70 % pads 1 Pad, Topical, Daily, Use four times daily to check FSBS. Blood Glucose Monitoring Suppl ([employer]-Access MediQuip Glucometer) w/Device kit 1 kit, Does not [...] PLAN ICD-10-CM 1. 34 weeks gestation of ([facility]) Z3A.34 POCT urinalysis dipstick manually resulted 2. Third trimester ([facility]) Z34.93 POCT urinalysis dipstick manually [...] of: ROB Rosenbaum documented in this encounter [facility] 03-21-2025 History of Presen t illness Narrative [...] nursing note reviewed. Exam conducted with a cost control specialist present. Vitals: There is no height or weight on file to calculate BMI. BP: Patient's last menstrual period was 08/17/2024. ASSESSMENT & PLAN ICD-10-CM 1. Third trimester ([facility]) Z34.93 POCT urinalysis dipstick manually resulted 2. 30 weeks gestation of ([facility]) Z3A.30 Return OB: Patient presents [...] Kamila Crooks NP documented in this encounter [facility] 03-07-2025 History of Presen t illness Narrative Reason for Appointment: Patient ID: Rosanne Belcher is a 24 y.o. female who presents for Routine Visit Patient presents today for Return OB appointment. MEDICATIONS Current Outpatient Medications Medication Instructions Alcohol Swabs (Alcohol Prep Pad) 70 % pads 1 Pad, Topical, Daily, Use four times daily to check FSBS. Blood Glucose Monitoring Suppl (Sam[employer]-Access MediQuip Glucometer) w/Device kit 1 kit, Does not [...] nursing note reviewed. Exam conducted with a cost control specialist present. Vitals: There is no height or [...] Andres Howell DO documented in this encounter [facility] 02-21-2025 History of Presen t illness Narrative [...] nursing note reviewed. Exam conducted with a cost control specialist present. Vitals: There is no height or [...] Sera Mckeon PA-C documented in this encounter [facility] 01-23-2025 History of Presen t illness Narrative [...] Felisha Espinoza LPN documented in this encounter [facility] 12-26-2024 History of Presen t illness Narrative [...] Andres Howell DO documented in this encounter [facility] 11-27-2024 History of Presen t illness Narrative [...] nursing note reviewed. Exam conducted with a cost control specialist present. Vitals: There is no height or [...] Andres Howell DO documented in this encounter [facility] 10-26-2024 History of Presen t illness Narrative [...] or undercooked meat, and [facility]. Patient has also been advised to [...] Mervat Carrera MA documented in this encounter [facility] 07-28-2021 Note DISCHARGE SUMMARY Discharge Date: 07-30-21 [...] Tylenol, any abdominal pain unrelieved with narcotics. [facility] Signed and Approved by: DR ANDRES HOWELL . 08/05/2021 16:10:00 [facility] 07-28-2021 Note OPERATIVE NOTE OPERATION DATE: 07-28-21 ANESTHETIC:Spinal with Duramorph. CARPET INSTALLER HELPER:ADRIANA Rodriguez PREOPERATIVE DIAGNOSIS: 1. Intrauterine at 39 [...] to the Recovery Room in stable condition. [facility] Signed and Approved by: DR ANDRES HOWELL . 07/28/2021 18:54:00 [facility] Evaluation note Diagnosis Missed menses , unspecified [...] , antepartum [facility] Third trimester ([facility]) state, incidental 37 weeks gestation of ([facility]) documented in this encounter [facility] Summary Purpose Family History No Family History Records FoundNo Family History Records Found Advance Directives No Advanced Directives Records FoundNo Advanced Directives Records Found Additional Source Comments INFORMATION SOURCE (unrecogn ized section and content) DATE CREATED AUTHOR 01/01/2022 [facility] DATE CREATED AUTHOR AUTHOR'S ORGANIZ ATION 05/14/2025 [facility] EPIC Reason for Visit (unrecogniz ed section and content) Reason Comments Amenorrhea Reason Comments Routine Visit Care Teams (unrecognized sec tion and content) Golf Teacher Relationship Specialty Start Date End Date Shilpi Blanton MD [address] [place] [phone] PCP - General Family Medicine 10/26/24 Golf Teacher Relationship Specialty Start Date End Date Shilpi Blanton MD [address] [place] [phone] PCP - General Family Medicine 10/26/24 Golf Teacher Relationship Specialty Start Date End Date Shilpi Blanton MD [address] [place] [phone] PCP - General Family Medicine 10/26/24 Golf Teacher Relationship Specialty Start Date End Date Shilpi Blanton MD [address] [place] [phone] PCP - General Family Medicine 10/26/24 Golf Teacher Relationship Specialty Start Date End Date Shilpi Blanton MD [address] [facility] [place] [address] PCP - General Family Medicine 10/26/24 Golf Teacher Relationship Specialty Start Date End Date Shilpi Blanton MD PCP - General Family Medicine 10/26/24 Golf Teacher Relationship Specialty Start Date End Date Shilpi Blanton MD PCP - General Family Medicine 10/26/24 Golf Teacher Relationship Specialty Start Date End Date Shilpi Blanton MD PCP - General Family Medicine 10/26/24 Golf Teacher Relationship Specialty Start Date End Date Shilpi Blanton MD PCP - General Family Medicine 10/26/24 Golf Teacher Relationship Specialty Start Date End Date Shilpi Blanton MD [address] [place] [phone] PCP - General Family Medicine 10/26/24 Golf Teacher Relationship Specialty Start Date End Date Shilpi Blanton MD [address] [facility] [place] [phone] PCP - General Family Medicine 10/26/24 Golf Teacher Relationship Specialty Start Date End Date Shilpi Blanton MD [address] [place] [phone] PCP - General Family Medicine 10/26/24 Golf Teacher Relationship Specialty Start Date End Date Shilpi Blanton MD [address] [facility] [place] [phone] PCP - General Family Medicine 10/26/24 Golf Teacher Relationship Specialty Start Date End Date Shilpi Blanton MD [address] [facility] [place] [address] PCP - General Family Medicine 10/26/24 Golf Teacher Relationship Specialty Start Date End Date Shilpi Blanton MD [address] [facility] [place] [phone] PCP - General Family Medicine [...] BE BASED ON THE PRIMARY CLINICAL RECORDS. [facility] [employer] [facility]. provides no warranty or guarantee of the accuracy or completeness of information in this document.
[2025-05-16 08:24] VITALS: BP 138/66; PULSE 110
--- NOTE | 2025-05-16 09:22 | PC.NURSE ---
0840: Patient states has been having some contractions and feeling tired. Feels tugging in lower abdomen and occasional blurred vision in left eye. Patient inquires about BP today and informed of result. States it has been creeping up and he said he would take me early. Denies epigastric pain, DTR's wnl upper and lower, 1+ edema lower extremities. Dr Howell informed of patient report and order received to send home with precautions.
== END 2025-05-16 09:15 | disposition home or self-care (01) ==
LOC: US 08:10 → FBC 08:13
PROVIDERS: PCP Family Medicine; Visit Provider Physician Assistant
DX: O16.3 Unspecified maternal hypertension, third trimester (principal); O13.9 Gestational [pregnancy-induced] hypertension without significant proteinuria, unspecified trimester
CPT/HCPCS: 76818

== ENCOUNTER 2025-05-19 13:05 | Outpatient (OUT) | payer MEDICAID, SELFPAY ==
--- OUTSIDE RECORDS SUMMARY | 2025-05-08 11:20 | XMS_ITS | Encounter Summary ---
Author Organization [facility] Address [address] [place] [address] Care Team Providers Care Shank Threader Name Role Phone Shilpi Alegria MD Primary Care Provider [phone] Reason for Visit * Reason Comments Routine Visit Encounter Details Date Type Department Care Team (Late st Contact Info) Description 05/08/2025 11:20 AM EDT Routine ANA [place] [facility] [address] [facility] [place] [address] Sera Osborne PA [address] [facility] [place] [address] Third trimester ([facility]); 37 weeks gestation of ([facility]); induced hypertension, antepartum ([facility]) Social History Tobacco Use Types Packs/Day Years [...] to check FSBS. Blood Glucose Monitoring Suppl (D-SIRS-Lab Glucometer) w/Device kit 1 kit, Does not [...] nursing note reviewed. Exam conducted with a outreach team member present. Vitals: Estimated body mass index is 41.88 kg/m?? as calculated from the following: Height as of this encounter: 5' 2 . Weight as of this encounter: 229 lb. BP: 130/90 Patient's last menstrual period was 08/17/2024. ASSESSMENT & PLAN ICD-10-CM 1. Third trimester ([facility]) Z34.93 POCT urinalysis dipstick manually resulted 2. 37 weeks gestation of ([facility]) Z3A.37 Return OB: Patient presents today [...] headaches. Suggested for patient to go to [facility] for PIH evaluation. Pt states she [...] Care Team (Late st Contact Info) Description 05/21/2025 9:30 AM EDT Routine [facility] [address] [facility] [place] [address] Jim Howell DO [address] [place] [address] Scheduled Orders Name Type Priority Associated Diagnoses Orde r Schedule Creatinine Lab Routine induced hypertension, antepartum ([facility]) Expected: 05/08/2025 (Approximate), Expires: 05/08/2026 Protein, urine, 24 hour Lab Routine induced [facility], antepartum [facility]) Expected: 05/08/2025 (Approximate), Expires: 05/08/2026 Pt and [...] Routine 05/08/2025 12:02 PM EDT Third trimester ([facility]) documented in this encounter Results * POCT [...] antepartum documented in this encounter Care Teams Shank Threader Relationship Specialty Start Date End Date Shilpi Alegria MD [address] [place] [address] PCP - General Family Medicine 10/26/24 documented as of this encounter
--- OUTSIDE RECORDS SUMMARY | 2025-05-14 08:30 | XMS_ITS | Encounter Summary ---
Author Organization [facility] Address [address] [place] [address] Care Team Providers Care High Raw Sugar Boiler Name Role Phone Shilpi Alegria MD Primary Care Provider [phone] Reason for Visit * Reason Comments Routine Visit Encounter Details Date Type Department Care Team (Late st Contact Info) Description 05/14/2025 8:30 AM EDT Routine [facility] [place] [facility] [address] [facility] [place] [phone] Jim Howell DO [address] [place] [address] Third trimester ([facility]); 37 weeks gestation of ([facility]) Social History Tobacco Use Types Packs/Day Years [...] Sign Reading Time Taken Comments Blood Pressure 128/72 05/14/2025 8:32 AM EDT Pulse - - Temperature - - Respiratory Rate - - Oxygen Saturation - - Inhaled Oxygen Concentration - - Weight 104 kg (230 lb 4 oz) 05/14/2025 8:32 AM E DT Height - - Body Mass Index 42.11 05/08/2025 12:00 PM EDT documented in this encounter Progress Notes * Katie Flowers LPN - 05/14/2025 8:30 AM EDT Reason for Appointment: Patient ID: Rosanne Choudhary is a 24 y.o. female who presents for Routine Visit Patient presents today for Return OB appointment. MEDICATIONS Current Outpatient Medications Medication Instructions Alcohol Swabs (Alcohol Prep Pad) 70 % pads 1 Pad, Topical, Daily, Use four times daily to check FSBS. Blood Glucose Monitoring Suppl ([employer] Glucometer) w/Device kit 1 kit, Does not [...] nursing note reviewed. Exam conducted with a oil extractor present. Vitals: Estimated body mass index is 42.11 kg/m?? as calculated from the following: Height as of 25: 5' 2 . Weight as of this encounter: 230 lb 4 oz. BP: 128/72 Patient's last menstrual period was 08/17/2024. ASSESSMENT & PLAN ICD-10-CM 1. Third trimester ([facility] Z34.93 POCT urinalysis dipstick manually resulted 2. 37 weeks gestation of ([facility]) Z3A.37 Patient presents today for a routine obstetrics appointment. Patient is currently 37w6d with a Estimated Date of Delivery: 05/29/25. Patient voiced that she has been having an increase in BP and has NST/BPP's scheduled for Wednesday. Patient voiced that she is having contractions. Patient toRTC in 1 week for routine OB appointment. Documented by Katie Flowers LPN on behalf of: Jim Howell DO documented in this encounter Plan of Treatment Upcoming Encounters Date Type Department Care Team (Late st Contact Info) Description 05/21/2025 9:30 AM EDT Routine [facility] [address] [place] [phone] Jim Howell DO [address] [place], [place] [phone] documented as of this encounter Procedures Procedure Name Priority Date/Time Associated Diagnosis Comments POCT URINALYSIS DIPSTICK Routine 05/14/2025 8:43 AM EDT Third trimester ([facility]) documented in this encounter Results * POCT urinalysis dipstick manually resulted (05/14/2025 8:43 AM EDT) Color, UA Yellow Clarity, [...] Nitrite, UA Negative Negative - Positive Urine 05/14/2025 8:43 AM EDT Jim Howell DO POINT OF CARE TEST ENTER/EDIT OR DERABLES Final Result documented in this encounter Visit Diagnoses Diagnosis Third trimester ([facility]) state, incidental 37 weeks gestation of ([facility]) documented in this encounter Care Teams High Raw Sugar Boiler Relationship Specialty Start Date End Date Shilpi Alegria MD [address] [place] [phone] PCP - General Family Medicine 10/26/24 documented as of this encounter
--- OUTSIDE RECORDS SUMMARY | 2025-05-19 13:07 | XMS_ITS | Encounter Summary ---
Author Organization [facility] Address [address] [place] [address] Care Team Providers Care Cellophane Worker Name Role Phone Shilpi Alegria MD Primary Care Provider [phone] Encounter Details Date Type Department Care Team (Late Contact Info) Description 11/24/2024 Abstract [facility] [address] [place] [phone] Jim Howell DO [address] [place] [address] Social History Tobacco Use Types Packs/Day Years [...] Department Care Team (Late Contact Info) Description 05/21/2025 9:30 AM EDT Routine [facility] [address] [facility] [place] [phone] Jim Howell, DO [address] [place] [id number] documented as of this encounter Visit Diagnoses Not on filedocumented in this encounter Care Teams Cellophane Worker Relationship Specialty Start Date End Date Shilpi Alegria MD [address] [facility] [place] [phone] PCP - General Family Medicine 10/26/24 documented as of this encounter
--- OUTSIDE RECORDS SUMMARY | 2025-05-19 13:07 | XMS_ITS | Encounter Summary ---
Author Organization [facility] Address [address] [place] [address] Care Team Providers Care Marble Machine Tender Name Role Phone Shilpi Alegria MD Primary Care Provider Encounter Details Date Type Department Care Team (Late Contact Info) Description 05/14/2025 Bamboo flowsheet [facility] [address] [place] [address] [facility] [place] [phone] Jim Howell DO [address] [place] [address] Dr Devin [place], [place] [address] Social History Tobacco Use Types Packs/Day Years [...] 9:30 AM EDT Routine [facility] [address] [place] [address] [facility] [phone] Jim Howell DO [address], [facility] documented as of this encounter Visit Diagnoses Not on filedocumented in this encounter Care Teams Marble Machine Tender Relationship Specialty Start Date End Date Shilpi Alegria MD [address] [place] [phone] PCP - General Family Medicine 10/26/24 documented as of this encounter
--- OUTSIDE RECORDS SUMMARY | 2025-05-19 13:07 | XMS_ITS | Clinical Summary ---
Author Organization [facility] Address [address] [place] [address] Care Team Providers Care Thermodynamicist Name Role Phone Shilpi Alegria MD Primary Care Provider Allergies Active Allergy Reactions Criticality Noted Date Comments Cefdinir 10/26/2024 Other 10/26/2024 Suprex Medications Alcohol Swabs (Alcohol Prep Pad) 70 % padsIndications:Ges tational diabetes mellitus (GDM), antepartum, gestational diabetes method of control unspecified ([facility]),Elevated glucose tolerance test Apply 1 Pad topically Daily Use four times daily to check FSBS. 150 each 3 5 Active Blood Glucose Monitoring Suppl (D-Care Glucometer) w/Device kitIndications:Gest ational diabetes mellitus (GDM), antepartum, gestational diabetes method of control unspecified ([facility]),Elevated glucose tolerance test 1 kit Daily Use four times daily to check FSBS. In the morning prior to breakfast & 1 hour after each meal for a total of 4times daily. 1 kit 5 026 Active iron polysaccharides (ProFe) 391.3 (180 Fe) MG capsuleIndications: Low iron Take 1 capsule (391.3 mg) by mouth Daily 120 capsule 5 025 Active Encounters Date Type Department Care Team Description 05/16/2025 Clinisync Result Encounter NOMS External Department Unsolicited Sera Mckeon PA 05/14/2025 8:30 AM EDT Routine [facility] [address] [place] [phone] Jim Howell DO Third trimester ([facility]); 37 weeks gestation of ([facility]) 05/14/2025 Telephone [facility] [address] [place] [address] Alison King MA 05/14/2025 Abstract [facility] [address] [place] [place] [address] Jim Howell, 05/14/2025 Bamboo flowsheet [facility] [address] [place] [place] [address] Jim Howell, 05/12/2025 Travel 05/11/2025 Clinisync Result Encounter NOMS External Department Unsolicited Sera Mckeon PA 05/10/2025 Clinisync Result Encounter NOMS External Department Unsolicited Sera Mckeon PA 05/09/2025 Clinisync Result Encounter NOMS External Department Unsolicited Sera Mckeon PA 05/08/2025 11:20 AM EDT Routine [facility] [address] [place] [place] [address] Sera Mckeon PA Third trimester ([facility]); 37 weeks gestation of ([facility]); induced hypertension, antepartum ([facility]) 05/08/2025 Bamboo flowsheet [facility] [address] [place] [place] [address] Sera Mckeon PA 05/07/2025 Travel 05/01/2025 9:10 AM EDT Routine [facility] [facility] [address] [place] [place] [address] Jim Howell, 36 weeks gestation of ([facility]); Third trimester ([facility]); H/O section 05/01/2025 Bamboo flowsheet [facility] [address] [place] [place] [address] Jim Howell, 04/30/2025 Travel 04/19/2025 8:30 AM EDT Routine [facility] [place] [address] Sera Mckeon PA 34 weeks gestation of ([facility]); Third trimester ([facility]) 04/19/2025 8:00 AM EDT Ancillary Procedure [facility] [place] [address] Third trimester ([facility]); 30 weeks gestation of ([facility]); Elevated glucose tolerance test 04/18/2025 Travel 03/21/2025 8:30 AM EDT Routine [facility] [place] [address] Kamila Crooks, RONALD Third trimester ([facility]) (Primary Dx); 30 weeks gestation of ([facility]); Elevated glucose tolerance test 03/21/2025 Bamboo flowsheet ANA Nina [facility] [place] [address] Kamila Crooks, RONALD 03/14/2025 Clinisync Result Encounter NOMS External Department Unsolicited Sera Mckeon PA 03/07/2025 3:20 PM EDT Routine [facility] [place] [address] Jim Howell DO size inconsistent with dates ([facility]) (Primary Dx); 28 weeks gestation of ([facility]); Third trimester ([facility]) 03/07/2025 Clinisync Result Encounter NOMS External Department Unsolicited Jim Howell DO 03/07/2025 Bamboo flowsheet [place] [address] Jim Howell, 03/06/2025 Travel 02/23/2025 Abstract [facility] [place] [address] Jim Howell DO 02/21/2025 2:40 PM EDT Routine ANA R[facility] [place] [address] Jim Howell, Second trimester ([facility]); 26 weeks gestation of ([facility]); Diabetes mellitus screening 02/21/2025 Bamboo flowsheet N[facility] R[facility]LED[facility] [address] [place] [address] [place] [address] Jim Howell DO 02/21/2025 Travel from Last [...] oz) 05/14/2025 8:32 AM E DT Height 157.5 cm (5' 2 ) 05/08/2025 12:00 PM EDT Body Mass Index 42.11 05/08/2025 12:00 PM EDT Plan of Treatment Upcoming Encounters Date Type Department Care Team (Late st Contact Info) Description 05/21/2025 9:30 AM EDT Routine ANA RUTLEDGE [address] [place], [place] [address] [address] Jim Howell, [facility] [place] [address] Procedures Procedure Name Priority Date/Time Associated Diagnosis Comments US OB BPP W NON-STRESS 05/16/2025 1:06 PM EDT POCT URINALYSIS DIPSTICK Routine 05/14/2025 8:43 AM EDT Third trimester ([facility]) TBH TOTAL PROTEIN 24 HOUR URINE Routine [...] Results * US OB BPP W NON-STRESS (05/16/2025 1:06 PM EDT) Only the most recent of2 resultswithin the time period is included. Anatomical Region Laterality Modality Other 05/16/2025 1:06 PM EDT Narrative 05/16/2025 1:09 PM EDT The [address] [address] Ultrasound Report Signed Patient: ROSANNE CHOUDHARY MR#: [id number] : 2000 Acct:[id number] Age/Sex: 24 / F ADM Date: 05/16/25 Loc: US Attending Dr: Sera Mckeon Ordering Physician: Sera Mckeon Date of Service: 05/16/25 Procedure(s): US OB BPP w non-stress Accession Number(s): [id number] cc: Sera Mckeon; Shilpi Alegria M.D. The [address] [address] Patient Name: ROSANNE CHOUDHARY MRN: [id number] date: 2000 Sex: F Assigned Patient Location: US Current Patient Location: Accession/Order Number: [id number] Exam Date: 05/16/2025 13:05 Report Date: 05/16/2025 13:06 At the request of: SERA MCKEON Procedure: US OB BPP w non-stress Ultrasound biophysical profile HISTORY: -induced hypertension Adequate breathing movement, gross body movement, tone and amniotic fluid volume for total score of 8 out of 8. The amniotic fluid index is 16.2cm within normal limits. The heart rate 144 bpm. US/US OB BPP w non-stress IMPRESSION: Adequate ultrasound biophysical profile Impression dictated by: Beto Mcgee M.D. 05/16/2025 1:06 PM Dictation Location: [place] [address] Electronically authenticated by: [id number] Y Date: 05/16/2025 13:06 Dictated By: Beto Mcgee D.O. Signed By: 05/16/25 1309 DD/ 1306 TD/TT: Horticultural Specialty Grower: Procedure Note Radiology, Radiologist, MD - 05/16/[address] [address] Ultrasound Report Signed Patient: ROSANNE CHOUDHARY EMR#: [id number] : 2000Acct:[id number] Age/Sex: 24 / FADM Date: 05/16/25 Loc: US Attending Dr: Sera Mckeon Ordering Physician: Sera Mckoen Date of Service: 05/16/25 Procedure(s): US OB BPP w non-stress Accession Number(s): [id number] cc: Sera Mckeon; Shilpi Alegria M.D. The [address] [address] Patient Name: ROSANNE CHOUDHARY MRN: [id number] date: 2000 Sex: F Assigned Patient Location: US Current Patient Location: Accession/Order Number: [id number] Exam Date: 05/16/2025 13:05 Report Date: 05/16/2025 13:06 At the request of: SERA MCKEON Procedure: US OB BPP w non-stress Ultrasound biophysical profile HISTORY: -induced hypertension Adequate breathing movement, gross body movement, tone and amniotic fluid volume for total score of 8 out of 8. The amniotic fluidindex is 16.2cm within normal limits. The heart rate 144 bpm. US/US OB BPP w non-stress IMPRESSION: Adequate ultrasound biophysical profile Impression dictated by: Beto Mcgee M.D. 05/16/2025 1:06 PM Dictation Location: [place] Electronically authenticated by: [id number] Y Date: 3:06 Dictated By: Beto Mcgee D.O. Signed By:05/16/25 1309 DD/ 1306 TD/TT: Horticultural Specialty Grower: Sera Mckeon PA [facility] Final Result * POCT urinalysis dipstick manually resulted (05/14/2025 8:43 AM EDT) Only the most recent of7 resultswithin the time period is included. Color, [...] TEST ENTER/EDIT OR DERABLES Final Result * (ABNORMAL) TBH TOTAL PROTEIN 24 HOUR URINE (05/11/2025 7:00 AM EDT) TOTAL PROTEIN URINE RANDOM 6.3 <=11.9 mg/dL TBH TOTAL VOLUME 24 HOUR URINE 2,500 mL/24hr TBH TBH TOTAL PROTEIN 24 HOUR URINE 157.5(H) <=149.1 mg/24hr TBH 05/11/2025 7:00 AM EDT 05/11/2025 8:37 AM EDT Narrative [facility] - 05/11/2025 10:09 AM EDT Sera COCHRAN Final Result [facility] * (ABNORMAL) TBH CREATININE (05/09/2025 3:50 PM EDT) CREATININE 0.52(L) 0.55 - 1.02 mg/dL TBH TBH EGFR-AF MALAWIAN >60 >=60 mL/min/1.7 3m 2 TBH TBH EGFR-NON AF MALAWIAN >60 >=60 mL/min/1.7 3m 2 TBH 05/09/2025 3:50 PM EDT 05/09/2025 3:50 PM EDT Narrative [facility] - 05/09/2025 4:21 PM EDT Sera COCHRAN Final Result Performing Organization Address City/[facility]/ZIP Co de Phone Number [facility] * [facility] PROTHROMBIN TIME INR W/O COUM (05/09/2025 3:50 PM EDT) PROTHROMBIN TIME 9.7 9.0 - 11.6 sec TBH TBH INR <0.93 TBH Comment: DESIRED INR: 2.0-3.0 CONDITIONS NOT LISTED BELOW 2.5-3.5 FOR PROSTHETIC HEART VALVE REPLACEMENT 2.5-3.5 RECURRENT THROMBOSIS 05/09/2025 3:50 PM EDT 05/09/2025 3:50 PM EDT Narrative [facility] - 05/09/2025 4:14 PM EDT Sera COCHRAN Final Result Performing Organization Address [facility] Co de Phone Number [facility] * [facility] AST (05/09/2025 3:50 PM EDT) ASPARTATE AMINO TRANSFERASE 18 15 - 37 U/L TBH 05/09/2025 3:50 PM EDT 05/09/2025 3:50 PM EDT Narrative [facility] - 05/09/2025 4:21 PM EDT us Sera RIVAS [facility] Final Result Performing Organization Address [facility] Co de Phone Number [facility] * [facility] APTT (05/09/2025 3:50 PM EDT) PARTIAL THROMBOPLASTIN TIME 25.7 22.3 - 36.2 sec TBH 05/09/2025 3:50 PM EDT 05/09/2025 3:50 PM EDT Narrative [facility] - 05/09/2025 4:14 PM EDT us Sera COCHRAN Final Result Performing Organization Address [facility] de Phone Number [facility] * ALL URIC ACID (05/09/2025 3:50 PM EDT) URIC ACID 4.5 2.6 - 6.0 mg/dL TBH 05/09/2025 3:50 PM EDT 05/09/2025 3:50 PM EDT Narrative [facility] - 05/09/2025 4:21 PM EDT us Sera COCHRAN Final Result Performing Organization Address [facility] de Phone Number [facility] * ALL LDH (05/09/2025 3:50 PM EDT) LACTATE DEHYDROGENASE 192 81 - 234 U/L TBH 05/09/2025 3:50 PM EDT 05/09/2025 3:50 PM EDT Narrative [facility] - 05/09/2025 4:21 PM EDT us Sera COCHRAN Final Result [facility] * (ABNORMAL) ALL CBC WITH AUTO [...] RIVAS [facility] Final Result Performing Organization Address [facility] de Phone Number [facility] * ALL BUN (05/09/2025 3:50 PM EDT) BLOOD UREA NITROGEN 10.0 7.0 - 18.0 mg/dL TBH 05/09/2025 3:50 PM EDT 05/09/2025 3:50 PM EDT Narrative [facility] - 05/09/2025 4:21 PM EDT Sera RIVAS [facility] Final Result Performing Organization Address [facility] de Phone Number [facility] * CULTURE, GROUP B STREP WITH SUSCEPTIBLITY (05/01/2025 10:00 AM EDT) Swab 05/01/2025 10:0 0 AM EDT us Jim Dante DO LAB BLOOD ORDERABLES Final Resul t Performing Organization Address [facility] de Phone Number EXTERNAL LAB * US OB follow up [...] SIGNED BY: Guanaco Coughlin MD Kamila Crooks NP IMG OB US PROCEDURES Final Re sult * US OB GROWTH (03/14/2025 3:41 PM EDT) Anatomical Region Laterality Modality Other 03/14/2025 3:41 PM EDT Narrative 03/14/2025 3:44 [place] [address] Ultrasound Report Signed Patient: ROSANNE CHOUDHARY MR#: [id number] : 2000 Acct:[id number] Age/Sex: 24 / F ADM Date: 03/14/25 Loc: US Attending Dr: Sera Mckeon Ordering Physician: Sera Mckeon Date of Service: 03/14/25 Procedure(s): US OB growth Accession Number(s): [id number] cc: Sera Mckeon; Shilpi Alegria M.D. The [address] [address] Patient Name: ROSANNE CHOUDHARY MRN: [id number] date: 2000 Sex: F Assigned Patient Location: US Current Patient Location: US Accession/Order Number: [id number] Exam Date: 03/14/2025 15:38 Report Date: 03/14/2025 [...] Jr., D.O. 03/14/2025 3:41 PM Dictation Location: [place] [address] Electronically authenticated by: [id number] Y Date: 03/14/2025 15:41 Dictated By: Guanaco Davenport M.D. Signed By: 03/14/25 1544 DD/ 1541 TD/TT: Horticultural Specialty Grower: Procedure Note Radiology, Radiologist, - 03/14/2025 The [place] [id number] Ultrasound Report Signed Patient: ROSANNE CHOUDHARY EMR#: [id number] : 2000Acct:[id number] Age/Sex: 24 / FADM Date: 03/14/25 Loc: US Attending Dr: Sera Mckeon Ordering Physician: Sera Mckeon Date of Service: 03/14/25 Procedure(s): US OB growth Accession Number(s): [id number] cc: Sera Mckeon; Shilpi Alegria M.D. [place] [address] Patient Name: ROSANNE CHOUDHARY MRN: [id number] date: 2000 Sex: F Assigned Patient Location: US Current Patient Location: US Accession/Order Number: [id number] Exam Date: 03/14/2025 15:38 Report Date: 03/14/2025 [...] Jr., D.O. 03/14/2025 3:41 PM Dictation Location: [place] [address] Electronically authenticated by: [id number] Y Date: 5:41 Dictated By: Guanaco Davenport M.D. Signed By:03/14/25 1544 DD/ 1541 TD/TT: Horticultural Specialty Grower: Sera RIVAS [facility] Final Result from Last 3 Months Insurance Care Teams Thermodynamicist Relationship Specialty Start Date End Date Shilpi Alegria MD [address] [place] [address] PCP - General Family Medicine 10/26/24
--- OUTSIDE RECORDS SUMMARY | 2025-05-19 13:07 | XMS_ITS | Encounter Summary ---
Author Organization [facility] Address [address] [place] [address] Care Team Providers Care Wine Manager Name Role Phone Shilpi Alegria MD Primary Care Provider [phone] Encounter Details Date Type Department Care Team (Late st Contact Info) Description 05/09/2025 Clinisync Result Encounter NOMS External Department Unsolicited Sera Osborne PA [address] [facility] [facility] [address] [place], [facility]11 Social History Tobacco Use Types Packs/Day [...] Description 05/21/2025 9:30 AM EDT Routine [facility] [place] [facility] [address] [facility] [place] [address] Jim Howell DO [address] [facility] [place] [address] documented as of this encounter Procedures Procedure [...] Sera COCHRAN Final Result Performing Organization Address City/[facility] Co de Phone Number [facility] * [facility] AST (05/09/2025 3:50 PM EDT) ASPARTATE AMINO TRANSFERASE 18 15 - 37 U/L TB 05/09/2025 3:50 PM EDT 05/09/2025 3:50 PM EDT Narrative [facility] - 05/09/2025 4:21 PM EDT Sera COCHRAN Final Result Performing Organization Address City/[facility] Co de Phone Number [facility] * ALL URIC ACID (05/09/2025 3:50 PM EDT) URIC ACID 4.5 2.6 - 6.0 mg/dL TBH 05/09/2025 3:50 PM EDT 05/09/2025 3:50 PM EDT Narrative [facility] - 05/09/2025 4:21 PM EDT us Sera RIVAS JAVEDNC Final Result Performing Organization Address [facility] de Phone Number [facility] * (ABNORMAL) TBH CREATININE (05/09/2025 3:50 PM EDT) CREATININE 0.52(L) 0.55 - 1.02 mg/dL TBH TBH EGFR-AF ZIMBABWEAN >60 >=60 mL/min/1.7 3m 2 TBH TBH EGFR-NON AF ZIMBABWEAN >60 >=60 mL/min/1.7 3m 2 TBH 05/09/2025 3:50 PM EDT 05/09/2025 3:50 PM EDT Narrative [facility] - 05/09/2025 4:21 PM EDT us Sera COCHRAN Final Result Performing Organization Address [facility] de Phone Number [facility] * ALL BUN (05/09/2025 3:50 PM EDT) BLOOD UREA NITROGEN 10.0 7.0 - 18.0 mg/dL TB 05/09/2025 3:50 PM EDT 05/09/2025 3:50 PM EDT Narrative [facility] - 05/09/2025 4:21 PM EDT Sera RIVAS JAVEDNC Final Result Performing Organization Address [facility] de Phone Number [facility] * [facility] APTT (05/09/2025 3:50 PM EDT) PARTIAL THROMBOPLASTIN TIME 25.7 22.3 - 36.2 sec TB 05/09/2025 3:50 PM EDT 05/09/2025 3:50 PM EDT Narrative [facility] - 05/09/2025 4:14 PM EDT us Sera RIVAS [facility] Final Result [facility] PROTHROMBIN TIME INR W/O COUM (05/09/2025 3:50 PM EDT) Pathologist [facility] PROTHROMBIN TIME 9.7 9.0 - 11.6 sec TB TB INR <0.93 TB Comment: DESIRED INR: 2.0-3.0 CONDITIONS NOT LISTED BELOW 2.5-3.5 FOR PROSTHETIC HEART VALVE REPLACEMENT 2.5-3.5 RECURRENT THROMBOSIS 05/09/2025 3:50 PM EDT 05/09/2025 3:50 PM EDT Narrative [facility] - 05/09/2025 4:14 PM EDT Sera ADAMSISYNC Final Result Performing Organization Address [facility]/ZIP Co de Phone Number [facility] * (ABNORMAL) ALL CBC WITH AUTO DIFF (05/09/2025 3:50 PM EDT) Pathologist [facility] TB WBC 8.1 4.0 - 11.0 10 3/uL TBH TB RBC 4.13(L) 4.20 - 5.40 10 6/uL TBH TB HGB 10.1(L) 12.0 - 16.0 g/dL TB TB HCT 31.3(L) 36.0 - 48.0 % TB TB MCV 75.8(L) 81.0 - 99.0 fL TBH TB MCH 24.5(L) 26.7 - 34.0 pg TBH TB MCHC 32.3 29.9 - 35.2 g/dL TB TB RDW 13.9 11.0 - 15.0 % TBH TBH PLT 264 150 - 450 10 3/uL TBH TB MPV 10.3 9.5 - 13.5 fL TBH [...] PM EDT Sera RIVAS [facility] Final Result [facility] documented in this encounter Visit Diagnoses Not on filedocumented in this encounter Care Teams Wine Manager Relationship Specialty Start Date End Date Shilpi Alegria MD [address] [place] [address] PCP - General Family Medicine 10/26/24 documented as of this encounter
--- OUTSIDE RECORDS SUMMARY | 2025-05-19 13:07 | XMS_ITS | Encounter Summary ---
Author Organization [facility] Address [address] [place] [address] Care Team Providers Care Check Services Clerk Name Role Phone Shilpi Alegria MD Primary Care Provider [phone] Encounter Details Date Type Department Care Team (Late st Contact Info) Description 05/11/2025 Clinisync Result Encounter NOMS External Department Unsolicited Sera Osborne PA [address] [facility] [address] [place], [facility]11 Social History Tobacco Use Types Packs/Day Years [...] 9:30 AM EDT Routine ANA RUTLEDGE [address] [facility] [place] [address] Jim Howell DO [address] [facility] [place] [address] documented as of this encounter Procedures Procedure [...] CLINISYNC - 05/11/2025 10:09 AM EDT Sera RIVAS [facility] Final Result [facility] documented in this encounter Visit Diagnoses Not on filedocumented in this encounter Care Teams Check Services Clerk Relationship Specialty Start Date End Date Shilpi Alegria MD [address] [place] [address] PCP - General Family Medicine 10/26/24 documented as of this encounter
--- OUTSIDE RECORDS SUMMARY | 2025-05-19 13:07 | XMS_ITS | Encounter Summary ---
Author Organization [facility] Address [address] [place] [address] Care Team Providers Care Hot Blaster Name Role Phone Shilpi Alegria MD Primary Care Provider [phone] Encounter Details Date Type Department Care Team (Late st Contact Info) Description 05/16/2025 Clinisync Result Encounter NOMS External Department Unsolicited Mauricio Mckeon PA [address] [facility] [address] [place], [facility]11 Social History Tobacco Use Types Packs/Day [...] Info) Description 05/21/2025 9:30 AM EDT Routine [facility] [place] [facility] [address] [place] [address] Jim oHwell DO [address] [facility] [place] [address] documented as of this encounter Procedures Procedure Name Priority Date/Time Associated Diagnosis Comments US OB BPP W NON-STRESS 05/16/2025 1:06 PM EDT documented in this encounter Results * US OB BPP W NON-STRESS (05/16/2025 1:06 PM EDT) Anatomical Region Laterality Modality Other 05/16/2025 1:06 PM EDT Narrative 05/16/2025 1:09 [place] [address] Ultrasound Report Signed Patient: ROSANNE CHOUDHARY MR#: [id number] : 2000 Acct:[id number] Age/Sex: 24 / F ADM Date: 05/16/25 Loc: US Attending Dr: Mauricio Mckeon Ordering Physician: Mauricio Mckeon Date of Service: 05/16/25 Procedure(s): US OB BPP w non-stress Accession Number(s): [id number] cc: Mauricio Mckeon; Shilpi Alegria M.D. The [place] [id number] Patient Name: ROSANNE CHOUDHARY MRN: [id number] date: 2000 Sex: F Assigned Patient Location: US Current Patient Location: Accession/Order Number: [id number] Exam Date: 05/16/2025 13:05 Report Date: 05/16/2025 13:06 At the request of: MAURICIO MCKEON Procedure: [...] Mcgee M.D. 05/16/2025 1:06 PM Dictation Location: [place] [address] Electronically authenticated by: [id number] Y Date: 05/16/2025 13:06 Dictated By: Beto Mcgee D.O. Signed By: 05/16/25 1309 DD/ 1306 TD/TT: Industrial Coffee Grinder: Procedure Note Radiology, Radiologist, - 05/16/2025 [place] [address] Ultrasound Report Signed Patient: ROSANNE CHOUDHARY EMR#: [id number] : 2000Acct:[id number] Age/Sex: 24 / FADM Date: 05/16/25 Loc: US Attending Dr: Mauricio Mckeon Ordering Physician: Mauricio Mckeon Date of Service: 05/16/25 Procedure(s): US OB BPP w non-stress Accession Number(s): [id number] cc: Mauricio Mckeon; Shilpi Alegria M.D. [address] [address] Patient Name: ROSANNE CHOUDHARY MRN: [id number] date: 2000 Sex: F Assigned Patient Location: US Current Patient Location: Accession/Order Number: [id number] Exam Date: 05/16/2025 13:05 Report Date: 05/16/2025 13:06 At the request of: MAURICIO MCKEON Procedure: [...] Mcgee M.D. 05/16/2025 1:06 PM Dictation Location: [place] [address] Electronically authenticated by: [id number] Y Date: 3:06 Dictated By: Beto Mcgee D.O. Signed By:05/16/25 1309 DD/ 1306 TD/TT: Industrial Coffee Grinder: us Mauricio RIVAS [facility] Final Result documented in this encounter Visit Diagnoses Not on filedocumented in this encounter Care Teams Hot Blaster Relationship Specialty Start Date End Date Shilpi Alegria MD [address] [place] [phone] PCP - General Family Medicine 10/26/24 documented as of this encounter
--- OUTSIDE RECORDS SUMMARY | 2025-05-19 13:07 | XMS_ITS | Encounter Summary ---
Author Organization [facility] Address [address] [place] [address] Care Team Providers Care Hogshead Mat Assembler Name Role Phone Shilpi Alegria MD Primary Care Provider [phone] Encounter Details Date Type Department Care Team (Latest Contact Info) Description 05/12/2025 Travel Social History Tobacco Use Types Packs/Day [...] AM EDT Routine [facility] [place] [facility] [address] [place] [phone] Jim Howell DO [address] [place] [place], [place] [phone] documented as of this encounter Visit Diagnoses Not on filedocumented in this encounter Care Teams Hogshead Mat Assembler Relationship Specialty Start Date End Date Shilpi Alegria MD [address] [place] [phone] PCP - General Family Medicine 10/26/24 documented as of this encounter
--- OUTSIDE RECORDS SUMMARY | 2025-05-19 13:07 | XMS_ITS | Clinical Summary ---
Author Organization [facility] Address [address] [place] [address] Phone Care Team Providers Care Electrician Elevator Maintenance Name Role Phone Jaxon Alvarenga MD Primary Care Provider Shalonda vailable Social History Tobacco Use Types Packs/Day Years Used Date Smoking Tobacco: Never Assessed Comments Unknown Sex and Gender Information Value Date Recorded Sex Assigned at Not on file Legal Sex Female 12:29 AM EST Gender Identity Not on file Sexual Orientation Not on file Plan of Treatment Not on file Care Teams Electrician Elevator Maintenance Relationship Specialty Start Date End Date Jaxon Alvarenga MD Retired From Practice Retired From Practice PCP - General 02/02/06
--- OUTSIDE RECORDS SUMMARY | 2025-05-19 13:07 | XMS_ITS | Encounter Summary ---
Author Organization [facility] Address [address] [place] [address] Care Team Providers Care Mixing Machine Operator Name Role Phone Shilpi Alegria MD Primary Care Provider Encounter Details Date Type Department Care Team (Late Contact Info) Description 02/23/2025 Abstract [facility] [address] [place] [phone] Jim Howell DO [address] [place] [address] Social History Tobacco Use Types Packs/Day Years [...] Info) Description 05/21/2025 9:30 AM EDT Routine [facility] [address] [facility] [place] [address] Jim Howell, DO [address] [place] [id number] documented as of this encounter Visit Diagnoses Not on filedocumented in this encounter Care Teams Mixing Machine Operator Relationship Specialty Start Date End Date Shilpi Alegria MD [address] [facility] [place] [phone] PCP - General Family Medicine 10/26/24 documented as of this encounter
--- OUTSIDE RECORDS SUMMARY | 2025-05-19 13:07 | XMS_ITS | Encounter Summary ---
Author Organization [facility] Address [address] [place] [address] Care Team Providers Care Estate And Trust Tax Principal Name Role Phone Shilpi Alegria MD Primary Care Provider [phone] Encounter Details Date Type Department Care Team (Late Contact Info) Description 05/14/2025 Abstract [facility] [address] [facility] [place] [phone] Jim Howell DO [address] [place] [address] Social History Tobacco Use Types Packs/Day Years [...] Description 05/21/2025 9:30 AM EDT Routine [facility] [address] [facility] [place] [address] Jim Howell, DO [address] [place] [id number] documented as of this encounter Visit Diagnoses Not on filedocumented in this encounter Care Teams Estate And Trust Tax Principal Relationship Specialty Start Date End Date Shilpi Alegria MD [address] [facility] [place] [phone] PCP - General Family Medicine 10/26/24 documented as of this encounter
--- OUTSIDE RECORDS SUMMARY | 2025-05-19 13:07 | XMS_ITS | Encounter Summary ---
Author Organization [facility] Address [address] [place] [address] Care Team Providers Care Hand Drawer In Name Role Phone Shilpi Alegria MD Primary Care Provider [phone] Encounter Details Date Type Department Care Team (Late Contact Info) Description 05/08/2025 Bamboo flowsheet [facility] [address] [facility] [address] Sera Osborne PA [address] [facility] [address] [place], [place] [address] Social History Tobacco Use Types Packs/Day Years [...] 9:30 AM EDT Routine [facility] [address] [facility] [place] [address] Jim Howell DO [address] [facility] [address] [place], [facility]11 documented as of this encounter Visit Diagnoses Not on filedocumented in this encounter Care Teams Hand Drawer In Relationship Specialty Start Date End Date Shilpi Alegria MD [address] [place] [phone] PCP - General Family Medicine 10/26/24 documented as of this encounter
--- OUTSIDE RECORDS SUMMARY | 2025-05-19 13:07 | XMS_ITS | Encounter Summary ---
Author Organization [facility] Address [address] [place] [address] Care Team Providers Care Barrel Cooper Name Role Phone Shilpi Alegria MD Primary Care Provider [phone] Encounter Details Date Type Department Care Team (Late st Contact Info) Description 05/10/2025 Clinisync Result Encounter [facility] External Department Unsolicited Mauricio Mckeon PA [address] [facility] [address] [place], [facility]11 Social History Tobacco Use Types [...] AM EDT Routine [facility] [place] [facility] [address] [facility] [place] [phone] Jim Howell DO [address] [facility] [place] [address] documented as of this encounter Procedures Procedure Name Priority Date/Time Associated Diagnosis Comments US OB BPP W NON-STRESS 05/10/2025 9:05 AM EDT documented in this encounter Results * US OB BPP W NON-STRESS (05/10/2025 9:05 AM EDT) Anatomical Region Laterality Modality Other 05/10/2025 9:05 AM EDT Narrative 05/10/2025 9:08 AM EDT [address] [address] Ultrasound Report Signed Patient: ROSANNE CHOUDHARY MR#: [id number] : 2000 Acct:[id number] Age/Sex: 24 / F ADM Date: 05/09/25 Loc: US Attending Dr: Mauricio Mckeon Ordering Physician: Mauricio Mckeon Date of Service: 05/09/25 Procedure(s): US OB BPP w non-stress Accession Number(s): [id number] cc: Mauricio Mckeon; Shilpi Alegria M.D. [place] [id number] Patient Name: ROSANNE CHOUDHARY MRN: [id number] date: 2000 Sex: F Assigned Patient Location: US Current Patient Location: Accession/Order Number: [id number] Exam Date: 05/10/2025 09:03 Report Date: 05/10/2025 09:05 At the request of: MAURICIO MCKEON Procedure: US OB BPP w non-stress Biophysical profile. Reason for exam: -induced hypertension COMPARISON: None TECHNIQUE: Transabdominal imaging of the gravid uterus was obtained. FINDINGS: The lock tender reports a BPP of 8 out of 8. [place] is normal at 15.5 cm. heart rate 136 bpm. Incidental note is made of right-sided pelviectasis. US/US OB BPP w non-stress IMPRESSION: BPP 8 out of 8. Right pelviectasis. Impression dictated by: Guanaco Davenport Jr., D.O. 05/10/2025 9:05 AM Dictation Location: [place] [address] Electronically authenticated by: [id number] Y Date: 05/10/2025 09:05 Dictated By: Guanaco Davenport M.D. Signed By: 05/10/25 0908 DD/ 4 TD/TT: Solution Design And Analysis Manager: Procedure Note Radiology, Radiologist, - 05/10/[address] [address] Ultrasound Report Signed Patient: ROSANNE CHOUDHARY EMR#: [id number] : 2000Acct:[id number] Age/Sex: 24 / FADM Date: 05/09/25 Loc: US Attending Dr: Mauricio Mckeon Ordering Physician: Mauricio Mckeon Date of Service: 05/09/25 Procedure(s): US OB BPP w non-stress Accession Number(s): [id number] cc: Mauricio Mckeon; Shilpi Alegria M.D. The [place] [id number] Patient Name: ROSANNE CHOUDHARY MRN: [facility]:[id number] date: 2000 Sex: F Assigned Patient Location: US Current Patient Location: Accession/Order Number: [id number] Exam Date: 05/10/2025 09:03 Report Date: 05/10/2025 09:05 At the request of: MAURICIO MCKEON Procedure: US OB BPP w non-stress Biophysical profile. Reason for exam: -induced hypertension COMPARISON: None TECHNIQUE: Transabdominal imaging of the gravid uterus was obtained. FINDINGS: The lock tender reports a BPP of 8 out of 8. [place] is normal at15.5 cm. heart rate 136 bpm. Incidental note is made of right-sided pelviectasis. US/US OB BPP w non-stress IMPRESSION: BPP 8 out of 8. Right pelviectasis. Impression dictated by: uGanaco Davenport Jr., D.O. 05/10/2025 9:05 AM Dictation Location: [place] [address] Electronically authenticated by: [id number] Y Date: 9:05 Dictated By: Guanaco Davenport M.D. Signed By:05/10/25907 DD/ 4 TD/TT: Solution Design And Analysis Manager: Mauricio [facility] Final Result documented in this encounter Visit Diagnoses Not on filedocumented in this encounter Care Teams Barrel Cooper Relationship Specialty Start Date End Date Shilpi Alegria MD [address] [place] [address] PCP - General Family Medicine 10/26/24 documented as of this encounter
--- OUTSIDE RECORDS SUMMARY | 2025-05-19 13:07 | XMS_ITS | Encounter Summary ---
Author Organization [facility] Address [address] [place] [address] Care Team Providers Care Customer Support Manager Name Role Phone Shilpi Alegria MD Primary Care Provider [phone] Encounter Details Date Type Department Care Team (Late Contact Info) Description 11/17/2024 Abstract [facility] [address] [facility] [place] [phone] Jim Howell DO [address] [place] [address] Social History Tobacco Use Types Packs/Day Years [...] 9:30 AM EDT Routine [facility] [address] [facility] [place] [phone] Jim Howell, DO [address] [place] [place] [id number] documented as of this encounter Visit Diagnoses Not on filedocumented in this encounter Care Teams Customer Support Manager Relationship Specialty Start Date End Date Shilpi Alegria MD [address] [facility] [place] [phone] PCP - General Family Medicine 10/26/24 documented as of this encounter
--- OUTSIDE RECORDS SUMMARY | 2025-05-19 13:07 | XMS_ITS | Encounter Summary ---
Author Organization [facility] Address [address] [place] [address] Care Team Providers Care Enrollment Eligibility Representative Name Role Phone Shilpi Alegria MD Primary Care Provider [phone] Encounter Details Date Type Department Care Team (Late Contact Info) Description 05/14/2025 Telephone [facility] [address] [place] [address] [place] [phone] Alison King MA [address] [place] [address] [place] [address] Social History Tobacco Use Types Packs/Day Years Used Date Smoking Tobacco: Never Assessed Estimated Date of Delivery Comme nts Yes 05/29/2025 Based on Ultraso und Sex and Gender Information Value Date Recorded Sex Assigned at Not on file Legal Sex Female 11:47 PM EDT Gender Identity Not on file Sexual Orientation Not on file documented as of this encounter Miscellaneous Notes * Telephone Encounter - Alison King MA - 05/14/2025 4:13 PM EDT Pt notified of CBC labs and advised that Profe was sent to pharmacy to begin taking along w/PNV. PVU. documented in this encounter Plan of Treatment Upcoming Encounters Date Type Department Care Team (Late Contact Info) Description 05/21/2025 9:30 AM EDT Routine [facility] [address] [facility] [phone] Jim Howell DO [address] [place], [facility]11 documented as of this encounter Visit Diagnoses Diagnosis Low iron Unspecified iron deficiency anemia documented in this encounter Care Teams Enrollment Eligibility Representative Relationship Specialty Start Date End Date Shilpi Alegria MD [address] [place] [phone] PCP - General Family Medicine 10/26/24 documented as of this encounter
--- OUTSIDE RECORDS SUMMARY | 2025-05-19 13:07 | XMS_ITS | Encounter Summary ---
Author Organization [facility] Address [address] [place] [address] Care Team Providers Care Dramatic Critic Name Role Phone Shilpi Alegria MD Primary Care Provider [phone] Encounter Details Date Type Department Care Team [...] EDT Routine [facility] [address] [place] [phone] Jim Howell DO [address] [place], [place] [phone] documented as of this encounter Visit Diagnoses Not on filedocumented in this encounter Care Teams Dramatic Critic Relationship Specialty Start Date End Date Shilpi Alegria MD [address] [place] [phone] PCP - General Family Medicine 10/26/24 documented as of this encounter
--- OUTSIDE RECORDS SUMMARY | 2025-05-19 13:09 | XMS_ITS | CCD ---
Author Organization [facility] Care Team Providers Care Top Hat Body Maker Name Role Phone DANTE, DR CAMPOS Admitting [...] Unavailable BLANTON, DR SHILPI Rios Admitting Unavailable [place], DR DARCY Mondragon Consulting Unavailable FRANNY, DR [...] Unavailable Franny GARRETT, Shilpi Primary Care Provider [phone] Franny GARRETT, Shilpi Primary Care Provider [phone] Franny GARRETT, Shilpi Primary Care Provider DANTE, [...] Facility (1 source) cefdinir Drug Allergy [facility] (2 sources) Cephalosporins (Antibiotic) Drug allergy (disorder) [facility] (1 source) Dextrothyroxine Drug Allergy [facility] (20 sources) cefdinir Drug Allergy 5 [facility] (20 sources) Other Propensity to adverse reactions 5 [facility] Medications Current Medications Medication Drug [...] End: 12-26-2025 Blood Glucose Monitoring Sup pl (D-HaveMyShift Glucometer) w/Device kit Indications: Gestational diabetes mellitus [...] antepartum, gestational diabetes method of control unspecified ([facility]) , Elevated glucose tolerance test Apply 1 Pad topically Daily Use four times daily to check FSBS. 150 each 3 12/26/2024 Active polysaccharide iron complex 391 mg oral capsule (1 source) Start: 05-14-2025 End: 09-11-2025 take 1 capsule by mouth once daily iron polysaccharides (ProFe) 391.3 (180 Fe) MG capsule Indications: Low iron Take 1 capsule (391.3 mg) by mouth Daily 120 capsule 05/14/2025 09/11/2025 Active Problems Active Problems Problem Classification Problem [...] Facility US OB BPP W NON-STRESS on 05-16-[address] [address] Ultrasound Report Signed Patient: ROSANNE BELCHER MR#: [id number] : 2000 Acct:[id number] Age/Sex: 24 / F ADM Date: 05/16/25 Loc: US Attending Dr: Sera Mckeon Ordering Physician: Sera Mckeon Date of Service: 05/16/25 Procedure(s): US OB BPP w non-stress Accession Number(s): [id number] cc: Sera Mckeon; Shilpi Blanton M.D. The [address] [address] Patient Name: ROSANNE BELCHER MRN: [facility]:[id number] date: 2000 Sex: F Assigned Patient Location: US Current Patient Location: Accession/Order Number: [id number] Exam Date: 05/16/2025 13:05 Report Date: 05/16/2025 [...] Mcgee M.D. 05/16/2025 1:06 PM Dictation Location: [place] [address] Electronically authenticated by: [id number] Y Date: 05/16/2025 13:06 Dictated By: Beto Mcgee D.O. Signed By: 05/16/25 1309 DD/ 1306 TD/TT: Foreign Exchange Student Coordinator: [facility] Radiology, Radiologist, - 05/16/2025 [place] [address] Ultrasound Report Signed Patient: ROSANNE BELCHER MR#: [id number] : 2000 Acct:[id number] Age/Sex: 24 / F ADM Date: 05/16/25 Loc: US Attending Dr: Sera Mckeon Ordering Physician: Sera Mckeon Date of Service: 05/16/25 Procedure(s): US OB BPP w non-stress Accession Number(s): [id number] cc: Shilpi Leo M.D. The [address] [address] Patient Name: ROSANNE BELCHER MRN: [facility]:[id number] date: 2000 Sex: F Assigned Patient Location: US Current Patient Location: Accession/Order Number: [id number] Exam Date: 05/16/2025 13:05 Report Date: 05/16/2025 [...] Mcgee M.D. 05/16/2025 1:06 PM Dictation Location: [place] [address] Electronically authenticated by: [id number] Y Date: 05/16/2025 13:06 Dictated By: Beto Mcgee D.O. Signed By: 05/16/25 1309 DD/ 1306 TD/TT: Foreign Exchange Student Coordinator: [facility] Radiology Study observation (narrative) [facility] US OB BPP W NON-STRESS Ordered By: Radiologist Radiology on 05-16-2025 [facility] Work Phone: Urinalysis macro (dipstick) panel (U)on 05-14-2025 Bilirubin, UA Negative Negative - 4(70) +++ mg/dL [facility] Blood, UA Negative Negative - 50 Willard/mcL [facility] Clarity, UA Clear [facility] Color, UA Yellow [facility] Glucose, UA Negative Negative - 1999(110) ++++ mg/dL [facility] Interpretation and review of laboratory results Normal [facility] Ketones, UA Negative Negative - 160(16) ++++ mg/dL [facility] Leukocytes, UA Negative Negative - 500+++ Charlie/mcL [facility] Nitrite, UA Negative Negative - Positive [facility] pH, UA 6 5 - 9 [facility] Protein, UA Negative Negative - 1999(20) ++++ mg/dL [facility] Spec Grav, UA 1.015 1 - 1.03 [facility] Urobilinogen, UA 0.2 0.2 - 12 mg/dL [facility] TB TOTAL PROTEIN 24 HOUR UR INEon 05-11-2025 Interpretation and review of laboratory results Abnormal [facility] Protein (U) [Mass/Vol] 6.3 mg/dL NINF - 11.9 mg/dL [facility] TBH TOTAL PROTEIN 24 HOUR URINE 157.5 High NINF [facility] TOTAL VOLUME 24 HOUR URINE 2500 mL/24hr [facility] US OB BPP W NON-STRESS on 05-10-2025 [place] [address] Ultrasound Report Signed Patient: ROSANNE BELCHER MR#: [id number] : 2000 Acct:[id number] Age/Sex: 24 / F ADM Date: 05/09/25 Loc: US Attending Dr: Sera Mckeon Ordering Physician: Sera Mckeon Date of Service: 05/09/25 Procedure(s): US OB BPP w non-stress Accession Number(s): [id number] cc: Sera Mckeon; Shilpi Blanton M.D. The [place] [id number] Patient Name: ROSANNE BELCHER MRN: [facility]:[id number] date: 2000 Sex: F Assigned Patient Location: Current Patient Location: Accession/Order Number: [id number] Exam Date: 05/10/2025 09:03 Report Date: 05/10/2025 09:05 At the request of: SERA MCKEON Procedure: US OB BPP w non-stress Biophysical profile. Reason for exam: -induced hypertension COMPARISON: None TECHNIQUE: Transabdominal imaging of the gravid uterus was obtained. FINDINGS: The final cleaner reports a BPP of 8 out of 8. [place] is normal at 15.5 cm. heart rate 136 bpm. Incidental note is made of right-sided pelviectasis. US/US OB BPP w non-stress IMPRESSION: BPP 8 out of 8. Right pelviectasis. Impression dictated by: Guanaco Davenport Jr., D.O. 05/10/2025 9:05 AM Dictation Location: [facility]-23 Electronically authenticated by: [id number] Y Date: 05/10/2025 09:05 Dictated By: Guanaco Davenport M.D. Signed By: 05/10/25907 DD/ 4 TD/TT: Foreign Exchange Student Coordinator: [facility] Radiology, Radiologist, - 05/10/2025 [place] [address] Ultrasound Report Signed Patient: ROSANNE BELCHER MR#: [id number] : 2000 Acct:[id number] Age/Sex: 24 / F ADM Date: 05/09/25 Loc: US Attending Dr: Sera Mckeon Ordering Physician: Sera Mckeon Date of Service: 05/09/25 Procedure(s): US OB BPP w non-stress Accession Number(s): [id number] cc: Sera Mckeon; Shilpi Blanton M.D. The [place] [address] Patient Name: ROSANNE BELCHER MRN: [facility]:[id number] date: 2000 Sex: F Assigned Patient Location: US Current Patient Location: Accession/Order Number: [id number] Exam Date: 05/10/2025 09:03 Report Date: 05/10/2025 09:05 At the request of: SERA MCKEON Procedure: US OB BPP w non-stress Biophysical profile. Reason for exam: -induced hypertension COMPARISON: None TECHNIQUE: Transabdominal imaging of the gravid uterus was obtained. FINDINGS: The final cleaner reports a BPP of 8 out of 8. [place] is normal at 15.5 cm. heart rate 136 bpm. Incidental note is made of right-sided pelviectasis. US/US OB BPP w non-stress IMPRESSION: BPP 8 out of 8. Right pelviectasis. Impression dictated by: Guanaco Davenport Jr., D.O. 05/10/2025 9:05 AM Dictation Location: [facility]23 Electronically authenticated by: [id number] Y Date: 05/10/2025 09:05 Dictated By: Guanaco Davenport M.D. Signed By: 05/10/25907 DD/ 4 TD/TT: Foreign Exchange Student Coordinator: [facility] Radiology Study observation (narrative) [facility] US OB BPP W NON-STRESS Ordered By: Radiologist Radiology on 05-10-2025 [facility] Work Phone: ALL CBC WITH AUTO DIFFon BASOPHILS ABSOLUTE AUTO 0 [facility] Basophils/100 WBC (Bld) 0.1 % Low 0.2 - 2.0 % [facility] Eosinophils/100 WBC (Bld) 0.9 % 0.9 - 7.0 % [facility] Erythrocyte distribution width (RBC) [Ratio] 13.9 % 11.0 - 15.0 % [facility] Hematocrit (Bld) [Volume fraction] 31.3 % Low 36.0 - 48.0 % [facility] Hemoglobin (Bld) [Mass/Vol] 10.1 g/dL Low 12.0 - 16.0 g/dL [facility] IMMATURE GRANULOCYTES ABS AUTO 0.01 [facility] Immature granulocytes/100 WBC (Bld) 0.1 % 0.0 - 0.5 % [facility] Interpretation and review of laboratory results Abnormal [facility] LYMPHOCYTES ABSOLUTE AUTO 1.6 [facility] Lymphocytes/100 WBC (Bld) 19.5 % Low 20.5 - 60.0 % [facility] MCH (RBC) [Entitic mass] 24.5 pg Low 26.7 - 34.0 pg [facility] MCHC (RBC) [Mass/Vol] 32.3 g/dL 29.9 - 35.2 g/dL [facility] MCV (RBC) [Entitic vol] 75.8 fL Low 81.0 - 99.0 fL [facility] MONOCYTES ABSOLUTE AUTO 0.7 [facility] Monocytes/100 WBC (Bld) 8.3 % 1.7 - 12.0 % [facility] NEUTROPHILS ABSOLUTE AUTO 5.8 [facility] Neutrophils/100 WBC (Bld) 71.1 % 43.0 - 75.0 % [facility] Platelet mean volume (Bld) [Entitic vol] 10.3 fL 9.5 - 13.5 fL [facility] TBH EO # 0.1 [facility] PLT 264 [facility] TB RBC 4.13 Low [facility] WBC 8.1 [facility] Urinalysis macro (dipstick) panel (U)on 05-08-2025 Bilirubin, UA Negative Negative - 4(70) +++ mg/dL [facility] Blood, UA Negative Negative - 50 Willard/mcL [facility] Clarity, UA Clear [facility] Color, UA Yellow [facility] Glucose, UA Negative Negative - 1999(110) ++++ mg/dL [facility] Interpretation and review of laboratory results Normal [facility] Ketones, UA Negative Negative - 160(16) ++++ mg/dL [facility] Leukocytes, UA Negative Negative - 500+++ Charlie/mcL [facility] Nitrite, UA Negative Negative - Positive [facility] pH, UA 6 5 - 9 [facility] Protein, UA Negative Negative - 1999(20) ++++ mg/dL [facility] Spec Grav, UA 1.02 1 - 1.03 [facility] Urobilinogen, UA 1.0 0.2 - 12 mg/dL [facility] Urinalysis macro (dipstick) panel (U)on 05-01-2025 Bilirubin, UA Negative Negative - 4(70) +++ mg/dL [facility] Blood, UA Negative Negative - 50 Willard/mcL [facility] Clarity, UA Clear [facility] Color, UA Yellow [facility] Glucose, UA Negative Negative - 1999(110) ++++ mg/dL [facility] Interpretation and review of laboratory results Normal [facility] Ketones, UA Negative Negative - 160(16) ++++ mg/dL [facility] Leukocytes, UA Negative Negative - 500+++ Charlie/mcL [facility] Nitrite, UA Negative Negative - Positive [facility] pH, UA 6 5 - 9 [facility] Protein, UA Negative Negative - 1999(20) ++++ mg/dL [facility] Spec Grav, UA 1.02 1 - 1.03 [facility] Urobilinogen, UA 1.0 0.2 - 12 mg/dL [facility] US OB FOLLOW UP TRANSABDOMIN [...] UA Negative Negative - 4(70) +++ mg/dL [facility] Blood, UA Negative Negative - 50 Willard/mcL [facility] Clarity, UA Clear [facility] Color, UA Yellow [facility] Glucose, UA Negative Negative - 1999(110) ++++ mg/dL [facility] Interpretation and review of laboratory results Normal [facility] Ketones, UA Negative Negative - 160(16) ++++ mg/dL [facility] Leukocytes, UA Negative Negative - 500+++ Charlie/mcL [facility] Nitrite, UA Negative Negative - Positive [facility] pH, UA 6 5 - 9 [facility] Protein, UA Negative Negative - 2000(20) ++++ mg/dL [facility] Spec Grav, UA 1.01 1 - 1.03 [facility] Urobilinogen, UA 1.0 0.2 - 12 mg/dL [facility] Urinalysis macro (dipstick) panel (U)on 03-21-2025 Bilirubin, UA Negative Negative - 4(70) +++ mg/dL [facility] Blood, UA Negative Negative - 50 Willard/mcL [facility] Clarity, UA Clear [facility] Color, UA Yellow [facility] Glucose, UA Negative Negative - 1999(110) ++++ mg/dL [facility] Interpretation and review of laboratory results Normal [facility] Ketones, UA Negative Negative - 160(16) ++++ mg/dL [facility] Leukocytes, UA Negative Negative - 500+++ Charlie/mcL [facility] Nitrite, UA Negative Negative - Positive [facility] pH, UA 6.5 5 - 9 [facility] Protein, UA Negative Negative - 1999(20) ++++ mg/dL [facility] Spec Grav, UA 1.015 1 - 1.03 [facility] Urobilinogen, UA 0.2 0.2 - 12 mg/dL [facility] US OB GROWTHon 03-14-2025 [place] [address] Ultrasound Report Signed Patient: ROSANNE BELCHER MR#: [id number] : 2000 Acct:[id number] Age/Sex: 24 / F ADM Date: 03/14/25 Loc: US Attending Dr: Sera Mckeon Ordering Physician: Sera Mckeon Date of Service: 03/14/25 Procedure(s): US OB growth Accession Number(s): [id number] cc: Sera Mckeon; Shilpi Blanton M.D. [address] [address] Patient Name: ROSANNE BELCHER MRN: [facility]:[id number] date: 2000 Sex: F Assigned Patient Location: Current Patient Location: US Accession/Order Number: [id number] Exam Date: 03/14/2025 15:38 Report Date: 03/14/2025 [...] Jr., D.O. 03/14/2025 3:41 PM Dictation Location: [place] [address] Electronically authenticated by: [id number] Y Date: 03/14/2025 15:41 Dictated By: Guanaco Davenport M.D. Signed By: 03/14/25 1544 DD/ 1541 TD/TT: Foreign Exchange Student Coordinator: [facility] Radiology, Radiologist, MD - 03/14/2025 The [place] [id number] Ultrasound Report Signed Patient: ROSANNE BELCHER MR#: [id number] : 2000 Acct:[id number] Age/Sex: 24 / F ADM Date: 03/14/25 Loc: US Attending Dr: Sera Mckeon Ordering Physician: Sera Mckeon Date of Service: 03/14/25 Procedure(s): US OB growth Accession Number(s): [id number] cc: Sera Mckeon; Shilpi Blanton M.D. The [address] [address] Patient Name: ROSANNE BELCHER MRN: [facility]:[id number] date: 2000 Sex: F Assigned Patient Location: US Current Patient Location: US Accession/Order Number: [id number] Exam Date: 03/14/2025 15:38 Report Date: 03/14/2025 [...] Jr., D.O. 03/14/2025 3:41 PM Dictation Location: [place] [address] Electronically authenticated by: [id number] Y Date: 03/14/2025 15:41 Dictated By: Guanaco Davenport M.D. Signed By: 03/14/25 1544 DD/ 1541 TD/TT: Foreign Exchange Student Coordinator: [facility] Radiology Study observation (narrative) [facility] US OB GROWTHOrdered By: Joaquin ologist Radiology on 03-14-2025 [facility] Work Phone: ALL CBC WITH AUTO DIFFon BASOPHILS ABSOLUTE AUTO 0 [facility] Basophils/100 WBC (Bld) 0.2 % 0.2 - 2.0 % [facility] Eosinophils/100 WBC (Bld) 1 % 0.9 - 7.0 % [facility] Erythrocyte distribution width (RBC) [Ratio] 12.4 % 11.0 - 15.0 % [facility] Hematocrit (Bld) [Volume fraction] 33.6 % Low 36.0 - 48.0 % [facility] Hemoglobin (Bld) [Mass/Vol] 11.1 g/dL Low 12.0 - 16.0 g/dL [facility] IMMATURE GRANULOCYTES ABS AUTO 0.02 [facility] Immature granulocytes/100 WBC (Bld) 0.2 % 0.0 - 0.5 % [facility] Interpretation and review of laboratory results Abnormal [facility] LYMPHOCYTES ABSOLUTE AUTO 1.6 [facility] Lymphocytes/100 WBC (Bld) 17.6 % Low 20.5 - 60.0 % [facility] MCH (RBC) [Entitic mass] 27.3 pg 26.7 - 34.0 pg [facility] MCHC (RBC) [Mass/Vol] 33 g/dL 29.9 - 35.2 g/dL [facility] MCV (RBC) [Entitic vol] 82.8 fL 81.0 - 99.0 fL [facility] MONOCYTES ABSOLUTE AUTO 0.5 [facility] Monocytes/100 WBC (Bld) 6.1 % 1.7 - 12.0 % [facility] NEUTROPHILS ABSOLUTE AUTO 6.6 High [facility] Neutrophils/100 WBC (Bld) 74.9 % 43.0 - 75.0 % [facility] Platelet mean volume (Bld) [Entitic vol] 10 fL 9.5 - 13.[facility]L [facility] PLT 283 [facility] RBC 4.06 Low [facility] WBC 8.9 [facility] Urinalysis macro (dipstick) panel (U)on 03-07-2025 Bilirubin, UA Negative Negative - 4(70) +++ mg/dL [facility] Blood, UA Negative Negative - 50 Willard/mcL [facility] Clarity, UA Clear [facility] Color, UA Yellow [facility] Glucose, UA Negative Negative - 1999(110) ++++ mg/dL [facility] Interpretation and review of laboratory results Normal [facility] Ketones, UA Negative Negative - 160(16) ++++ mg/dL [facility] Leukocytes, UA Negative Negative - 500+++ Charlie/mcL [facility] Nitrite, UA Negative Negative - Positive [facility] pH, UA 6.5 5 - 9 [facility] Protein, UA Negative Negative - 1999(20) ++++ mg/dL [facility] Spec Grav, UA 1.015 1 - 1.03 [facility] Urobilinogen, UA 0.2 0.2 - 12 mg/dL [facility] Urinalysis macro (dipstick) panel (U)on 02-21-2025 Bilirubin, UA Negative Negative - 4(70) +++ mg/dL [facility] Blood, UA Negative Negative - 50 Willard/mcL [facility] Clarity, UA Clear [facility] Color, UA Yellow [facility] Glucose, UA Negative Negative - 1999(110) ++++ mg/dL [facility] Interpretation and review of laboratory results Normal [facility] Ketones, UA Negative Negative - 160(16) ++++ mg/dL [facility] Leukocytes, UA Negative Negative - 500+++ Charlie/mcL [facility] Nitrite, UA Negative Negative - Positive [facility] pH, UA 6.5 5 - 9 [facility] Protein, UA Negative Negative - 1999(20) ++++ mg/dL [facility] Spec Grav, UA 1.01 1 - 1.03 [facility] Urobilinogen, UA 0.2 0.2 - 12 mg/dL [facility] Urinalysis macro (dipstick) panel (U)on 01-23-2025 Bilirubin, UA Negative Negative - 4(70) +++ mg/dL [facility] Blood, UA Negative Negative - 50 Willard/mcL [facility] Clarity, UA Clear [facility] Color, UA Yellow [facility] Glucose, UA Negative Negative - 1999(110) ++++ mg/dL [facility] Interpretation and review of laboratory results Normal [facility] Ketones, UA Negative Negative - 160(16) ++++ mg/dL [facility] Leukocytes, UA Negative Negative - 500+++ Charlie/mcL [facility] Nitrite, UA Negative Negative - Positive [facility] pH, UA 6.5 5 - 9 [facility] Protein, UA Negative Negative - 2000(20) ++++ mg/dL [facility] Spec Grav, UA 1.02 1 - 1.03 [facility] Urobilinogen, UA 0.2 0.2 - 12 mg/dL [facility] US OB 14+ WEEKS ANATOMY [...] II, MD, PHD at 13-Jan-2025 06:46:09 PM [facility] Normal Not Available Comment on above: Order Comment: US OB ANATOMY SINGLE W US OB CERVICAL LENGTH Estimated Date of Delivery: 05/29/25 Gestational Age as of 12/26/2024: 18w0d RECURRENT VAGINITIS (HTRX)on 12-27-2024 ATOPOBIUM VAGINAE 0 [facility] ATOPOBIUM VAGINAE Not detected [facility] BVAB 2,3 (BACTERIAL VAGINOSIS ASSOCIATED BACTERIA 2, 3); MOBILUNCUS SPP 0 [facility] BVAB 2,3 (BACTERIAL VAGINOSIS ASSOCIATED BACTERIA 2, 3); MOBILUNCUS SPP Not detected [facility] TRICIA ALBICANS, PARAPSILOSIS, TROPICALIS 0 [facility] [...] UA Negative Negative - 4(70) +++ mg/dL [facility] Blood, UA Negative Negative - 50 Willard/mcL [facility] Clarity, UA Clear [facility] Color, UA Yellow [facility] Glucose, UA Negative Negative - 1999(110) ++++ mg/dL [facility] Interpretation and review of laboratory results Normal [facility] Ketones, UA Negative Negative - 160(16) ++++ mg/dL [facility] Leukocytes, UA Negative Negative - 500+++ Charlie/mcL [facility] Nitrite, UA Negative Negative - Positive [facility] pH, UA 6 5 - 9 [facility] Protein, UA Negative Negative - 1999(20) ++++ mg/dL [facility] Spec Grav, UA 1.02 1 - 1.03 [facility] Urobilinogen, UA 0.2 0.2 - 12 mg/dL [facility] GLUCOSE TOLERANCE 3 HOURon 0 12-20-2024 GLUCOSE TOLERANCE 3 HOUR mg/dL [facility] Comment on above: GLU FAST 93 (<95) Co l: 12/20/24 0741 GLU 1HR 141 (<180) Col: 12/20/24 0849 GLU 2HR 131 (<155) Col: 12/20/24 0949 GLU 3HR 99 (<140) Col: 12/20/24 1052 [facility] Urinalysis macro (dipstick) panel (U)on 11-27-2024 Bilirubin, UA Negative Negative - 4(70) +++ mg/dL [facility] Blood, UA Negative Negative - 50 Willard/mcL [facility] Clarity, UA Clear [facility] Color, UA Yellow [facility] Glucose, UA Negative Negative - 1999(110) ++++ mg/dL [facility] Interpretation and review of laboratory results Normal [facility] Ketones, UA Negative Negative - 160(16) ++++ mg/dL [facility] Leukocytes, UA Negative Negative - 500+++ Charlie/mcL [facility] Nitrite, UA Negative Negative - Positive [facility] pH, UA 5.5 5 - 9 [facility] Protein, UA Negative Negative - 1999(20) ++++ mg/dL [facility] Spec Grav, UA 1.005 1 - 1.03 [facility] Urobilinogen, UA 0.2 0.2 - 12 mg/dL [facility] MLR HEMOGLOBIN A1Con 025 Glucose [Mass/Vol] 120 mg/dL [facility] HbA1c (Bld) [Mass fraction] 5.8 % 4.5 - 6.2 % [facility] Comment on above: ADA RECOMMENDED LIMI T 4.0 - 6.0 ADA THERAPEUTIC TARGET < 7.0 ACTION SUGGESTED > 7.0 [facility] HCG ( test) Ql (U)o n 10-26-2024 Interpretation and review of laboratory results Abnormal [facility] Preg Test, Ur Positive Negative [facility] US OB TRANSVAGINALon 025 US [...] report is generated using voice recognition reporting ([employer]). On occasion, [employer] erroneously drops words from the report or [...] UA Negative Negative - 4(70) +++ mg/dL [facility] Blood, UA Negative Negative - 50 Willard/mcL [facility] Clarity, UA Clear [facility] Color, UA Yellow [facility] Glucose, UA Negative Negative - 2000(110) ++++ mg/dL [facility] Interpretation and review of laboratory results Normal [facility] Ketones, UA Negative Negative - 160(16) ++++ mg/dL [facility] Leukocytes, UA Negative Negative - 500+++ Charlie/mcL [facility] Nitrite, UA Negative Negative - Positive [facility] pH, UA 6.5 5 - 9 [facility] Protein, UA Negative Negative - 2000(20) ++++ mg/dL [facility] Spec Grav, UA 1.005 1 - 1.03 [facility] Urobilinogen, UA 0.2 0.2 - 12 mg/dL [facility] US SINGLE QUAD RT UPPERon [...] DARCY AU Date: 2021-12-26 16:10 Normal [facility] CBC AUTO DIFFon 07-29-2021 BASO # 0.0 103/ul Normal 0.0-0.1 [facility] Comment on above: Performed By: #### D RUGRPD #### [facility] [address] [place] [address] Dr. Brian Abdi Basophils/100 WBC (Bld) 0.2 % Normal 0.2-2.0 [facility] Comment on above: Performed By: #### D RUGRPD #### [facility] [address] [place] [address] Dr. Brian Abdi EO # 0.1 103/ul Normal 0.0-0.7 [facility] Comment on above: Performed By: #### D RUGRPD #### [facility] [address] [place] [address] Dr. Brian Abdi Eosinophils/100 WBC (Bld) 0.5 % Critically low 0.9-7.0 [facility] Comment on above: Performed By: #### D RUGRPD #### [facility] [address] [place] [address] Dr. Brian Abdi Erythrocyte distribution width (RBC) [Ratio] 13.9 % Normal 11.0-15.0 [facility] Comment on above: Performed By: #### D RUGRPD #### [facility] [address] [place] [address] Dr. Brian Abdi Hematocrit (Bld) [Volume fraction] 25.7 % Critically low 36.0-48.0 [facility] Comment on above: Performed By: #### D RUGRPD #### [facility] [address] [place] [address] Dr. Brian Abdi Hemoglobin (Bld) [Mass/Vol] 8.2 g/dL Critically low 12.0-16.0 [facility] Comment on above: Result Comment: SURESH ENT DELIVERED Performed By: #### D RUGRPD #### [facility] [address] [place] [address] Dr. Brian Abdi IG # 0.04 10e3/ul Critically high 0.00-0.03 [facility] Comment on above: Performed By: #### D RUGRPD #### [facility] [address] [place] [address] Dr. Brian Abdi IG % 0.4 % Normal 0.0-0.5 [facility] Comment on above: Performed By: #### D RUGRPD #### [facility] [address] [address] [address] Brian Abdi LYMPH # 2.4 103/ul Normal 1.2-3.8 [facility] Comment on above: Performed By: #### D RUGRPD #### [facility] [address] [address] [address] Brian Abdi Lymphocytes/100 WBC (Bld) 23.6 % Normal 20.5-60.0 [facility] Comment on above: Performed By: #### D RUGRPD #### [facility] [address] [place] [address] Dr. Brian Abdi MANUAL DIFF REQ NO Normal [facility] Comment on above: Performed By: #### D RUGRPD #### [facility] [address] [place] [address] Dr. Brian Abdi MCH (RBC) [Entitic mass] 27.6 pg Normal 26.7-34.0 [facility] Comment on above: Performed By: #### D RUGRPD #### [facility] [address] [place] [address] Dr. Brian Abdi MCHC (RBC) [Mass/Vol] 31.9 g/dL Normal 29.9-35.2 [facility] Comment on above: Performed By: #### D RUGRPD #### [facility] [address] [place] [address] Dr. Brian Abdi MCV (RBC) [Entitic vol] 86.5 fL Normal 81.0-99.0 [facility] Comment on above: Performed By: #### D RUGRPD #### [facility] [address] [place] [address] Dr. Brian Abdi MONO # 0.7 103/ul Normal 0.3-0.8 [facility] Comment on above: Performed By: #### D RUGRPD #### [facility] [address] [place] [address] Dr. Brian Abdi Monocytes/100 WBC (Bld) 7.3 % Normal 1.7-12.0 [facility] Comment on above: Performed By: #### D RUGRPD #### [facility] [address] [place] [address] Dr. Brian Abdi NEUT # 6.8 103/ul Critically high 1.4-6.5 [facility] Comment on above: Performed By: #### D RUGRPD #### [facility] [address] [place] [address] Dr. Brian Abdi Neutrophils/100 WBC (Bld) 68.0 % Normal 43.0-75.0 [facility] Comment on above: Performed By: #### D RUGRPD #### [facility] [address] [place] [address] Dr. Brian Abdi Platelet mean volume (Bld) [Entitic vol] 9.8 fL Normal 9.5-13.5 [facility] Comment on above: Performed By: #### D RUGRPD #### [facility] [address] [place] [address] Dr. Brian Abdi PLT 204 103/ul Normal 150-450 [facility] Comment on above: Performed By: #### D RUGRPD #### [facility] [address] [place] [address] Dr. Brian Abdi RBC 2.97 106/ul Critically low 4.20-5.40 [facility] Comment on above: Performed By: #### D RUGRPD #### [facility] [address] [place] [address] Dr. Brian Abdi WBC 10.0 103/ul Normal 4.0-11.0 [facility] Comment on above: Performed By: #### D RUGRPD #### [facility] [address] [place] [address] Dr. Brian Abdi CBC AUTO DIFFon 07-28-2021 BASO # 0.0 103/ul Normal 0.0-0.1 [facility] Comment on above: Performed By: #### H H #### [facility] [address] [place] [address] Sunitha Ugalde Basophils/100 WBC (Bld) 0.3 % Normal 0.2-2.0 [facility] Comment on above: Performed By: #### H H #### [facility] [address] [place] [address] Sunitha Tram EO # 0.0 103/ul Normal 0.0-0.7 [facility] Comment on above: Performed By: #### H H #### [facility] [address] [place] [address] Sunitha Tram Eosinophils/100 WBC (Bld) 0.6 % Critically low 0.9-7.0 [facility] Comment on above: Performed By: #### H H #### [facility] [address] [place] [address] Sunitha Tram Erythrocyte distribution width (RBC) [Ratio] 14.1 % Normal 11.0-15.0 [facility] Comment on above: Performed By: #### H H #### [facility] [address] [place] [address] Sunitha Tram Hematocrit (Bld) [Volume fraction] 34.5 % Critically low 36.0-48.0 [facility] Comment on above: Performed By: #### H H #### [facility] [address] [place] [address] Sunitha Tram Hemoglobin (Bld) [Mass/Vol] 10.8 g/dL Critically low 12.0-16.0 [facility] Comment on above: Performed By: #### H H #### [facility] [address] [place] [address] Sunitha Tram IG # 0.02 10e3/ul Normal 0.00-0.03 [facility] Comment on above: Performed By: #### H H #### [facility] [address] [place] [address] Sunitha Tram IG % 0.3 % Normal 0.0-0.5 [facility] Comment on above: Performed By: #### H H #### [facility] [address] [place] [address] Sunitha Tram LYMPH # 1.8 103/ul Normal 1.2-3.8 [facility] Comment on above: Performed By: #### H H #### [facility] [address] [place], [place] [id number] Sunitha Ugalde Lymphocytes/100 WBC (Bld) 25.4 % Normal 20.5-60.0 [facility] Comment on above: Performed By: #### H H #### [facility] [address] [place], [place] [id number] Sunitha Ugalde MANUAL DIFF REQ NO Normal [facility] Comment on above: Performed By: #### H H #### [facility] [address] [place], [place] [id number] Sunithajack Ugalde MCH (RBC) [Entitic mass] 27.3 pg Normal 26.7-34.0 [facility] Comment on above: Performed By: #### H H #### [facility] [address] [place], [place] [id number] Sunithajack Ugalde MCHC (RBC) [Mass/Vol] 31.3 g/dL Normal 29.9-35.2 [facility] Comment on above: Performed By: #### H H #### [facility] [address] [place] [address] Sunithajack Ugalde MCV (RBC) [Entitic vol] 87.3 fL Normal 81.0-99.0 [facility] Comment on above: Performed By: #### H H #### [facility] [address] [place] [address] Sunithajack Salesen MONO # 0.6 103/ul Normal 0.3-0.8 [facility] Comment on above: Performed By: #### H H #### [facility] [address] [place] [address] Sunithajack Ugalde Monocytes/100 WBC (Bld) 8.7 % Normal 1.7-12.0 [facility] Comment on above: Performed By: #### H H #### [facility] [address] [place] [address] Sunitha Tram NEUT # 4.7 103/ul Normal 1.4-6.5 [facility] Comment on above: Performed By: #### H H #### [facility] [address] [place] [address] Sunitha Tram Neutrophils/100 WBC (Bld) 64.7 % Normal 43.0-75.0 [facility] Comment on above: Performed By: #### H H #### [facility] [address] [place] [address] Sunitha Ugalde Platelet mean volume (Bld) [Entitic vol] 9.8 fL Normal 9.5-13.5 [facility] Comment on above: Performed By: #### H H #### [facility] [address] [place] [address] Sunitha Ugalde PLT 240 103/ul Normal 150-450 [facility] Comment on above: Performed By: #### H H #### [facility] [address] [place] [address] Sunitha Ugalde RBC 3.95 106/ul Critically low 4.20-5.40 [facility] Comment on above: Performed By: #### H H #### [facility] [address] [place] [address] Sunitha Ugalde WBC 7.3 103/ul Normal 4.0-11.0 [facility] Comment on above: Performed By: #### H H #### [facility] [address] [place] [address] Sunitha Ugalde DRUG SCREEN RAPID (URINE)on 07-28-2021 AMP Negative Normal NEGATIVE [facility] Comment on above: Performed By: #### D RUGRPD #### [facility] [address] [place] [address] Dr. Brian Abdi BAR Negative Normal NEGATIVE [facility] Comment on above: Performed By: #### D RUGRPD #### [facility] [address] [place] [address] Dr. Brian Abdi BUP Negative Normal NEGATIVE [facility] Comment on above: Performed By: #### D RUGRPD #### [facility] [address] [place] [address] Dr. Brian Abdi BZO Negative Normal NEGATIVE [facility] Comment on above: Performed By: #### D RUGRPD #### [facility] [address] [place] [address] Dr. Brian Abdi LISA Negative Normal NEGATIVE [facility] Comment on above: Performed By: #### D RUGRPD #### [facility] [address] [place] [address] Dr. Brian Abdi CUT-OFFS SEE BELOW Normal [facility] Comment on above: Result Comment: AMP [...] ng/mL Performed By: #### D RUGRPD #### [facility] [address] [place] [address] Dr. Brian Abdi DRUG CUT HEADER DRUG CLASS TEST SYSTEM CUT-OFF CONCENTRATIONS ARE FOLLOWS: Normal [facility] Comment on above: Performed By: #### D RUGRPD #### [facility] [address] [place] [address] Dr. Brian Abdi mAMP Negative Normal NEGATIVE [facility] Comment on above: Performed By: #### D RUGRPD #### [facility] [address] [place] [address] Dr. Brian Abdi MTD Negative Normal NEGATIVE [facility] Comment on above: Performed By: #### D RUGRPD #### [facility] [address] [place] [address] Dr. Brian Abdi OPI Negative Normal NEGATIVE [facility] Comment on above: Performed By: #### D RUGRPD #### [facility] [address] [place] [address] Dr. Brian Abdi OXY Negative Normal NEGATIVE [facility] Comment on above: Performed By: #### D RUGRPD #### [facility] [address] [place] [address] Dr. Brian Abdi PCP Negative Normal NEGATIVE [facility] Comment on above: Performed By: #### D RUGRPD #### [facility] [address] [place] [address] Dr. Brian Abdi PPX Negative Normal NEGATIVE [facility] Comment on above: Performed By: #### D RUGRPD #### [facility] [address] [place] [address] Dr. Brian Abdi TCA Negative Normal NEGATIVE [facility] Comment on above: Performed By: #### D RUGRPD #### [facility] [address] [place] [address] Dr. Brian Abdi THC Negative Normal NEGATIVE [facility] Comment on above: Performed By: #### D RUGRPD #### [facility] [address] [place] [address] Dr. Brian Abdi TYPE AND SCREENon 07-28-2021 TYPE AND SCREEN Negative Normal [facility] Comment on above: Performed By: #### T NS #### [facility] [address] [place] [address] Dr. Brian Abdi UA (CLEAN/CATCH) CLERK SECRETARY/MICRO I F IND.on 07-28-2021 Bilirubin Ql (U) Negative Normal NEGATIVE [facility] Comment on above: Performed By: #### H H #### [facility] [address] [place] [address] Sunitha Tram Clarity (U) CLEAR Normal CLEAR [facility] Comment on above: Performed By: #### H H #### [facility] [address] [place] [address] Sunitha Tram Color (U) LT. YELLOW Normal YELLOW [facility] Comment on above: Performed By: #### H H #### [facility] [address] [place] [address] Sunitha Tram Glucose Ql (U) Negative Normal NEGATIVE [facility] Comment on above: Performed By: #### H H #### [facility] [address] [place] [address] Sunitha Tram Hemoglobin Ql (U) Negative Normal NEGATIVE [facility] Comment on above: Performed By: #### H H #### [facility] [address] [place] [address] Sunitha Ugalde Ketones Ql (U) Negative Normal NEGATIVE [facility] Comment on above: Performed By: #### H H #### [facility] [address] [place] [address] Sunitha Tram LEUKOCYTES Negative Normal NEGATIVE [facility] Comment on above: Performed By: #### H H #### [facility] [address] [place] [address] Sunitha Tram Nitrite Ql (U) Negative Normal NEGATIVE [facility] Comment on above: Performed By: #### H H #### [facility] [address] [place] [address] Sunitha Ugalde pH (U) 6.0 [pH] Normal 5-9 [facility] Comment on above: Performed By: #### H H #### [facility] [address] [place] [address] Sunitha Ugalde SPEC GRAVITY <=1.005 Abnormal 1.005-<=1.025 [facility] Comment on above: Performed By: #### H H #### [facility] [address] [place] [address] Sunitha Ugalde UA PROTEIN Negative Normal NEGATIVE/ TRACE [facility] Comment on above: Performed By: #### H H #### [facility] [address] [place] [address] Sunitha Ugalde UR MICRO IND NOT INDICATED Normal [facility] Comment on above: Performed By: #### H H #### [facility] [address] [place] [address] Sunitha Ugalde Urobilinogen Qn (U) 0.2 {Fito'U}/dL Normal 0.2 - 1. 0 [facility] Comment on above: Performed By: #### H H #### [facility] [address] [place] [address] Sunitha Ugalde [facility]28 SARS-CoV-2 (COVID-19) RNA JEROD+probe Ql (Unsp spec) Not detected Normal NOT DETECTED [facility] Comment on above: Result Comment: This test is not yet approved or cleared by the [place] FDA. When there are no FDA-approved or cleared tests available, and other criteria are met, FDA can make tests available under an emergency access mechanism called an Emergency Use Authorization (EUA). The EUA for this test is supported by the [place] of Health and Human Service's (HHS's) declaration [...] SARS-CoV-2. Performed By: #### D RUGRPD #### [facility] [address] [place] [address] Dr. Brian Abdi GROUP B STREP CULTUREon [...] F Tetracycline <=0.25 S F Normal [facility] Comment on above: Performed By: #### G BSCX #### [facility] [address] [place] [address] Dr. Brian Abdi HEMOGRAM AND PLATELon 2020 Hematocrit (Bld) [Volume fraction] 33.7 % Critically low 36.0-48.0 [facility] Comment on above: Performed By: #### H H #### [facility] [address] [place] [address] Sunitha Ugalde Hemoglobin (Bld) [Mass/Vol] 10.8 g/dL Critically low 12.0-16.0 [facility] Comment on above: Performed By: #### H H #### [facility] [address] [place] [address] Sunitha Ugalde MCH (RBC) [Entitic mass] 28.3 pg Normal 26.7-34.0 [facility] Comment on above: Performed By: #### H H #### [facility] [address] [place] [address] Sunitha Ugalde MCHC (RBC) [Mass/Vol] 32.0 g/dL Normal 29.9-35.2 [facility] Comment on above: Performed By: #### H H #### [facility] [address] [place] [address] Sunitha Ugalde MCV (RBC) [Entitic vol] 88.2 fL Normal 81.0-99.0 [facility] Comment on above: Performed By: #### H H #### [facility] [address] [place] [address] Sunitha Ugalde PLT 252 103/ul Normal 150-450 [facility] Comment on above: Performed By: #### H H #### [facility] [address] [place] [address] Sunithajack Salesen RBC 3.82 106/ul Critically low 4.20-5.40 [facility] Comment on above: Performed By: #### H H #### [facility] [address] [place] [address] Sunithajack Salesen WBC 8.2 103/ul Normal 4.0-11.0 [facility] Comment on above: Performed By: #### H H #### [facility] [address] [place] [address] Sunitha Ugalde GLUCOSE - 1HRon 04-16-2021 Glucose [Mass/Vol] 129 mg/dL Critically high 74-106 [facility] Comment on above: Performed By: #### D RUGRPD #### [facility] [address] [place], [place] [address] Dr. Brian Abdi HEMOGLOBINon 04-16-2021 Hemoglobin (Bld) [Mass/Vol] 10.8 g/dL Critically low 12.0-16.0 [facility] Comment on above: Performed By: #### H H #### [facility] [address] [id number] Sunitha Tram AFP MATERNAL FOR SPINA BIFID Aon 03-19-2021 AFP MoM 0.91 Normal [facility] Comment on above: Performed By: #### H H #### [facility] [address] [address] Sunitha Tram AFP Value 47.2 ng/mL Normal [facility] Comment on above: Performed By: #### H H #### [facility] [address] [id number] Sunitha Tram AFP, Serum for Spina Bifida Report Normal [facility] Comment on above: Performed By: #### H H #### [facility] [address] [id number] Sunitha Tram Comment Comment Normal [facility] Comment on above: Result Comment: Isa Robles, Ph.D., [facility] Director . References: Available Upon Request. . Multiples Of Median Cutoffs For AFP Elevations Arroyo 2.5 Black 2.8 IDD 2.0 Twins 4.5 Abbreviation Definitions IDD - Insulin Dep Diabetes OSBR - Open Spina Bifida Risk . For further inquiries contact [facility] at [phone]. Performed By: #### H H #### [facility] [address] [id number] Sunitha Salgado Age Collection Date 20.1 weeks Normal [facility] Comment on above: Performed By: #### H H #### [facility] [address] [id number] Sunitha Ugalde Gestat, Age Based on DEL Normal [facility] Comment on above: Result Comment: 03/2021 Recalculations are not recommended when gestational dating by LMP and ultrasound are within 10 days. Performed By: #### H H #### [facility] [address] [place] [address] Sunitha Ugalde Insulin Dep Diabetes No Normal [facility] Comment on above: Performed By: #### H H #### [facility] [address] [place] [address] Sunithajack Ugalde Interpretation Comment Normal [facility] Comment on above: Result Comment: Inte rpretation: [...] Customer Services to discuss available options. The [employer] recommends amniocentesis be offered to women age 35 and older. Performed By: #### H H #### [facility] [address] [place] [address] Sunithajack Ugalde [age] Normal [facility] Comment on above: Performed By: #### H H #### [facility] [address] [place] [address] Sunithajack Ugalde Multiple Gestation No Normal [facility] Comment on above: Performed By: #### H H #### [facility] [address] [place] [address] Sunitha Ugalde OSBR Risk 1 [place] [id number] Normal [facility] Comment on above: Performed By: #### H H #### [facility] [address] [place] [address] Sunithajack Ugalde PDF . Normal [facility] Comment on above: Performed By: #### H H #### [facility] [address] [place] [address] Sunithajack Ugalde Race Normal [facility] Comment on above: Performed By: #### H H #### [facility] [address] [place] [address] Sunitha Ugalde Test Results: Negative Normal [facility] Comment on above: Performed By: #### H H #### [facility] [address] [id number] Sunitha Ugalde US PREG ANATOMY SINGLEon US [...] TRENT LEE Date: 2021-03-17 11:10 Normal [facility] HEMOGLOBIN AND HEMATOCRITon 03-12-2021 Hematocrit (Bld) [Volume fraction] 34.4 % Critically low 36.0-48.0 [facility] Comment on above: Performed By: #### H H #### [facility] [address] [place], [place] [address] Sunitha Ugalde Hemoglobin (Bld) [Mass/Vol] 11.3 g/dL Critically low 12.0-16.0 [facility] Comment on above: Performed By: #### H H #### [facility] [address] [id number] Sunithajack Ugalde CHLAMYDIA/GONOCOCCUS JEROD (SW AB/URINE/PAPon 02-28-2021 Chlamydia trachomatis, JEROD Negative Normal Negative [facility] Comment on above: Performed By: #### C T/NGNA #### [facility] [address] [id number] Sunithajack Salesen Neisseria gonorrhoeae, JEROD Negative Normal Negative [facility] Comment on above: Performed By: #### C T/NGNA #### [facility] [address] [place], [place] [id number] Sunithajack Ugalde PAP ACOG PANEL 2: 21 to 29on 02-28-2021 . . Normal [facility] Comment on above: Performed By: #### H H #### [facility] [address] [place] [address] Sunitha Ugalde Age Gdln ACOG Testing 21-29 Normal [facility] Comment on above: Performed By: #### H H #### [facility] [address] [place] [address] Sunitha Ugalde DIAGNOSIS: Comment Normal [facility] Comment on above: Result Comment: NEGA TIVE FOR INTRAEPITHELIAL LESION OR MALIGNANCY. Performed By: #### H H #### [facility] [address] [place] [address] Sunithajack Ugalde Methodology: Comment Normal [facility] Comment on above: Result Comment: This liquid based ThinPrep(R) pap test was screened with the use of an image guided system. Performed By: #### H H #### [facility] [address] [place], [place] [id number] Sunitha Salesen Note: Comment Normal [facility] Comment on above: Result Comment: The Pap smear is a screening test designed to aid in the detection of premalignant and malignant conditions of the uterine cervix. It is not a diagnostic procedure and should not be used as the sole means of detecting cervical cancer. Both false-positive and false-negative reports do occur. . Performed By: #### H H #### [facility] [address] [address] Sunitha Ugalde Performed by: Comment Normal [facility] Comment on above: Result Comment: Aixa Betancur, Commissioner Of Relocation Services (ASCP) Performed By: #### H H #### [facility] [address] [place] [address] Sunitha Ugalde Reflex Criteria: Comment Normal [facility] Comment on above: Result Comment: The HPV DNA reflex criteria were not met with this specimen result therefore, no HPV testing was performed. . Performed By: #### H H #### [facility] [address] [place] [address] Sunitha Ugalde Specimen adequacy: Comment Normal [facility] Comment on above: Result Comment: Sati sfactory for evaluation. No endocervical component is identified. Performed By: #### H H #### [facility] [address] [place] [address] Sunitha Ugalde VAGINITIS/VAGINOSIS DNA PROB Constantine 02-27-2021 Tricia species Negative Normal Negative [facility] Comment on above: Performed By: #### V AGINT #### [facility] [address] [place] [address] Sunitha Ugalde Gardnerella vaginalis Negative Normal Negative [facility] Comment on above: Performed By: #### V AGINT #### [facility] [address] [place] [address] Sunitha Ugalde Trichomonas vaginalis Negative Normal Negative [facility] Comment on above: Performed By: #### V AGINT #### [facility] [address] [place] [address] Sunitha Ugalde CULTURE URINEon 01-16-2021 CULTURE URINE [...] S F Tetracycline <=0.25 S F Normal [facility] Comment on above: Performed By: #### D RUGRPD #### [facility] [address] [place] [address] Dr. Brian Abdi HEP B SURFACE ANTIGEN SCREEN on 01-14-2021 HBsAg Screen Negative Normal Negative [facility] Comment on above: Performed By: #### H BSANS #### [facility] [address] [place] [address] Sunitha Ugalde HEPATITIS C VIRUS AB W/ REFL EX QUANTon 01-14-2021 HCV AB 0.1 s/co ratio Normal 0.0-0.9 [facility] Comment on above: Performed By: #### H H #### [facility] [address] [place] [address] Sunitha Ugalde Interpretation: Comment Normal [facility] Comment on above: Result Comment: Nega tive Not infected with HCV, unless recent infection is suspected or other evidence exists to indicate HCV infection. Performed By: #### H H #### [facility] [address] [place] [address] Sunitha Ugalde HIV 1 AND 2 WITH REFLEXon HIV Screen 4th Generation wRfx Non-Reactive Normal Non Reactive [facility] Comment on above: Performed By: #### D RUGRPD #### [facility] [address] [place] [address] Dr. Brian Abdi RPR QUANTon 01-14-2021 Rapid Plasma Reagin, Quant Non-Reactive Normal NonRea<1:1 [facility] Comment on above: Performed By: #### H H #### [facility] [address] [place] [address] Sunitha Ugalde RUBELLA AB IGGon 01-14-2021 Rubella Antibodies, IgG 1.27 index Normal Immune >0.99 [facility] Comment on above: Result Comment: Non- immune <0.90 Equivocal 0.90 - 0.99 Immune >0.99 Performed By: #### H H #### [facility] [address] [place] [address] Sunitha Ugalde CBC AUTO DIFFon 01-13-2021 BASO # 0.0 103/ul Normal 0.0-0.1 [facility] Comment on above: Performed By: #### C BC #### [facility] [address] [place], [place] [id number] Sunitha Tram Basophils/100 WBC (Bld) 0.4 % Normal 0.2-2.0 [facility] Comment on above: Performed By: #### C BC #### [facility] [address] [place], [place] [id number] Sunitha Tram EO # 0.1 103/ul Normal 0.0-0.7 [facility] Comment on above: Performed By: #### C BC #### [facility] [address] [place], [place] [id number] Sunitha Tram Eosinophils/100 WBC (Bld) 0.7 % Critically low 0.9-7.0 [facility] Comment on above: Performed By: #### C BC #### [facility] [address] [place] [address] Sunitha Tram Erythrocyte distribution width (RBC) [Ratio] 13.7 % Normal 11.0-15.0 [facility] Comment on above: Performed By: #### C BC #### [facility] [address] [place], [place] [id number] Sunitha Tram Hematocrit (Bld) [Volume fraction] 39.1 % Normal 36.0-48.0 [facility] Comment on above: Performed By: #### C BC #### [facility] [address] [place], [place] [id number] Sunitha Tram Hemoglobin (Bld) [Mass/Vol] 12.7 g/dL Normal 12.0-16.0 [facility] Comment on above: Performed By: #### C BC #### [facility] [address] [place], [place] [id number] Sunitha Tram IG # 0.02 10e3/ul Normal 0.00-0.03 [facility] Comment on above: Performed By: #### C BC #### [facility] [address] [place], [place] [id number] Sunitha Tram IG % 0.3 % Normal 0.0-0.5 [facility] Comment on above: Performed By: #### C BC #### [facility] [address] [place], [place] [id number] Sunithajack Ugalde LYMPH # 1.6 103/ul Normal 1.2-3.8 [facility] Comment on above: Performed By: #### C BC #### [facility] [address] [place], [place] [id number] Sunithajack Ugalde Lymphocytes/100 WBC (Bld) 21.6 % Normal 20.5-60.0 [facility] Comment on above: Performed By: #### C BC #### [facility] [address] [place], [place] [id number] Sunitha Ugalde MANUAL DIFF REQ NO Normal [facility] Comment on above: Performed By: #### C BC #### [facility] [address] [place] [address] Sunithajack Ugalde MCH (RBC) [Entitic mass] 27.6 pg Normal 26.7-34.0 [facility] Comment on above: Performed By: #### C BC #### [facility] [address] [place], [place] [id number] Sunithajack Ugalde MCHC (RBC) [Mass/Vol] 32.5 g/dL Normal 29.9-35.2 [facility] Comment on above: Performed By: #### C BC #### [facility] [address] [place], [place] [id number] Sunithajack Ugalde MCV (RBC) [Entitic vol] 85.0 fL Normal 81.0-99.0 [facility] Comment on above: Performed By: #### C BC #### [facility] [address] [place], [place] [id number] Sunitha Tram MONO # 0.4 103/ul Normal 0.3-0.8 [facility] Comment on above: Performed By: #### C BC #### [facility] [address] [place], [place] [address] Sunithajack Ugalde Monocytes/100 WBC (Bld) 5.4 % Normal 1.7-12.0 [facility] Comment on above: Performed By: #### C BC #### [facility] [address] [place], [place] [address] Sunithajack Salesen NEUT # 5.4 103/ul Normal 1.4-6.5 [facility] Comment on above: Performed By: #### C BC #### [facility] [address] [place], [place] [address] Sunitha Tram Neutrophils/100 WBC (Bld) 71.6 % Normal 43.0-75.0 [facility] Comment on above: Performed By: #### C BC #### [facility] [address] [id number] Sunithajack Ugalde Platelet mean volume (Bld) [Entitic vol] 9.3 fL Critically low 9.5-13.5 [facility] Comment on above: Performed By: #### C BC #### [facility] [address] [place], [place] [address] Sunitha Tram PLT 296 103/ul Normal 150-450 [facility] Comment on above: Performed By: #### C BC #### [facility] [address] [place], [place] [address] Sunitha Tram RBC 4.60 106/ul Normal 4.20-5.40 [facility] Comment on above: Performed By: #### C BC #### [facility] [address] [place], [place] [address] Sunitha Tram WBC 7.5 103/ul Normal 4.0-11.0 [facility] Comment on above: Performed By: #### C BC #### [facility] [address] [place], [place] [id number] Sunitha Tram GLYCOHEMOGLOBIN A1Con 2020 ADA RECOMMENDATION ADA THERAPEUTIC TARGET 6.0 - 7.0 ACTION SUGGESTED > 7.0 Normal [facility] Comment on above: Performed By: #### A 1C #### [facility] [address] [id number] Sunitha Ugalde Glucose [Mass/Vol] 111 mg/dL Normal [facility] Comment on above: Performed By: #### A 1C #### [facility] [address] [place], [place] [address] Sunitha Ugalde HbA1c (Bld) [Mass fraction] 5.5 % Normal <=6.0 [facility] Comment on above: Performed By: #### A 1C #### [facility] [address] [place], [place] [address] Sunitha Ugalde BARBI BOX TEST PT SEND OUTo n 01-13-2021 SENT TO REF LAB 01/13/21 Normal [facility] Comment on above: Performed By: #### D RUGRPD #### [facility] [address] [place], [place] [address] Dr. Brian Abdi TYPE AND SCREENon 01-13-2021 TYPE AND SCREEN Negative Normal [facility] Comment on above: Performed By: #### D RUGRPD #### [facility] [address] [place] [address] [address] [address] Brian Abdi Vital Signs Date Time Vital Sign Value Performing Clinician Facility 05-14-2025 08:32-0400 Body mass index (BMI) [Ratio] 42.11 kg/m2 [employer] Work Phone: [facility] 05-14-2025 08:32-0400 Body weight 104.44 kg [employer] Work Phone: [facility] 05-14-2025 08:32-0400 Diastolic blood pressure 72 mm[Hg] Andres Dante [employer] Work Phone: [facility] 05-14-2025 08:32-0400 Systolic blood pressure 128 mm[Hg] Andres Dante DO Work Phone: [facility] 05-08-2025 12:00-0400 Body height 157.5 cm Srea RIVAS Work Phone: [facility] 05-08-2025 11:55-0400 Body mass index (BMI) [Ratio] 41.88 kg/m2 Sera RIVAS Work Phone: [facility] 05-08-2025 11:55-0400 Body weight 103.87 kg Sera RIVAS Work Phone: [facility] 05-08-2025 11:55-0400 Diastolic blood pressure 90 mm[Hg] Sera Mckeon PA Work Phone: [facility] 05-08-2025 11:55-0400 Systolic blood pressure 130 mm[Hg] Sera Mckeon PA Work Phone: [facility] 05-01-2025 09:17-0400 Body weight 103.15 kg Andres Dante DO Work Phone: [facility] 05-01-2025 09:17-0400 Diastolic blood pressure 82 mm[Hg] Andres Dante DO Work Phone: [facility] 05-01-2025 09:17-0400 Systolic blood pressure 130 mm[Hg] Andres Dante DO Work Phone: [facility] 04-19-2025 08:43-0400 Body weight 102.06 kg Sera RIVAS Work Phone: [facility] 04-19-2025 08:43-0400 Diastolic blood pressure 68 mm[Hg] Sera Mckeon PA Work Phone: [facility] 04-19-2025 08:43-0400 Systolic blood pressure 120 mm[Hg] Sera Mckeon PA Work Phone: [facility] 03-21-2025 09:04-0400 Body weight 99.79 kg Kamila Crooks [employer] Work Phone: [facility] 03-21-2025 09:04-0400 Diastolic blood pressure 60 mm[Hg] Kamila Valeriy [employer] Work Phone: [facility] 03-21-2025 09:04-0400 Systolic blood pressure 120 mm[Hg] Kamila Valeriy [employer] Work Phone: [facility] 03-07-2025 15:18-0400 Body weight 99.97 kg Andres Dante DO Work Phone: [facility] 03-07-2025 15:18-0400 Diastolic blood pressure 70 mm[Hg] Andres Dante DO Work Phone: [facility] 03-07-2025 15:18-0400 Systolic blood pressure 120 mm[Hg] Andres Dante DO Work Phone: [facility] 02-21-2025 15:04-0400 Body weight 99.22 kg Andres Dante DO Work Phone: [facility] 02-21-2025 15:04-0400 Diastolic blood pressure 72 mm[Hg] Andres Dante DO Work Phone: [facility] 02-21-2025 15:04-0400 Systolic blood pressure 106 mm[Hg] Andres Dante DO Work Phone: [facility] 01-23-2025 15:00-0400 Body weight 96.98 kg Andres Dante DO Work Phone: [facility] 01-23-2025 15:00-0400 Diastolic blood pressure 70 mm[Hg] Andres Dante DO Work Phone: [facility] 01-23-2025 15:00-0400 Systolic blood pressure 120 mm[Hg] Andres Dante DO Work Phone: [facility] 12-26-2024 14:32-0400 Body weight 95.44 kg Andres Dante DO Work Phone: [facility] 12-26-2024 14:32-0400 Diastolic blood pressure 70 mm[Hg] Andres Dante DO Work Phone: [facility] 12-26-2024 14:32-0400 Systolic blood pressure 108 mm[Hg] Andres Dante DO Work Phone: [facility] 11-27-2024 14:37-0500 Body weight 96.53 kg Andres Dante DO Work Phone: [facility] 11-27-2024 14:37-0500 Diastolic blood pressure 70 mm[Hg] Andres Dante DO Work Phone: [facility] 11-27-2024 14:37-0500 Systolic blood pressure 122 mm[Hg] Andres Dante DO Work Phone: [facility] 10-26-2024 14:54-0500 Body weight 96.25 kg [facility] 03-19-2021 02:06-0400 Body weight 83.[address] ANDRES HOWELL [facility] Comment on above: Performed By: #### HH #### [facility] [address] [place], [place] [address] Sunitha Ugalde Encounters Encounter Date Encounter Type Care Provider Facility Start: 05-16-2025 End: 05-16-2025 Clinisync Result Encounter Sera RIVAS Work Phone: [facility] Unsolicited Start: 05-16-2025 End: 05-16-2025 Clinisync Result Encounter Sera RIVAS Work Phone: [facility] Unsolicited Start: 05-14-2025 End: 05-14-2025 Bamboo flowsheet Andres Dante DO Work Phone: [facility] Start: 05-14-2025 End: 05-14-2025 Bamboo flowsheet Andres Dante DO Work Phone: [facility] Start: 05-14-2025 End: 05-14-2025 Office outpatient visit 15 minutes Andres Dante DO Work Phone: [facility] Comment on above: Third trimester preg ulises ([facility]); 37 weeks gestation of ([facility]) Start: 05-14-2025 End: 05-14-2025 ambulatory ANRDES DANTE Not Available Start: 05-11-2025 End: 05-11-2025 Clinisync Result Encounter Sera RIVAS Work Phone: [facility] Unsolicited Start: 05-11-2025 End: 05-11-2025 Clinisync Result Encounter Sera RIVAS Work Phone: [facility] Unsolicited Start: 05-10-2025 End: 05-10-2025 Clinisync Result Encounter Sera RIVAS Work Phone: [facility] Unsolicited Start: 05-10-2025 End: 05-10-2025 Clinisync Result Encounter Sera Mckeon ROB Work Phone: [facility] Unsolicited Start: 05-09-2025 End: 05-09-2025 Clinisync Result Encounter Sera Mckeon ROB Work Phone: [facility] Unsolicited Start: 05-09-2025 End: 05-09-2025 Clinisync Result Encounter Sera Mckeon ROB Work Phone: [facility] Unsolicited Start: 05-08-2025 End: 05-08-2025 Bamboo flowsheet Sera Mckeon ROB Work Phone: [facility] Start: 05-08-2025 End: 05-08-2025 Bamboo flowsheet Sera Mckeon ROB Work Phone: [facility] Start: 05-08-2025 End: 05-08-2025 ambulatory SERA MCKEON Not Available Start: 05-08-2025 End: 05-08-2025 Office outpatient visit 15 minutes Sera Mike ROB Work Phone: [facility] Comment on above: Third trimester preg ulises ([facility]); 37 weeks gestation of ([facility]); induced hypertension, antepartum ([facility]) Start: 05-01-2025 End: 05-01-2025 Bamboo flowsheet Andres Dante DO Work Phone: [facility] Start: 05-01-2025 End: 05-01-2025 Bamboo flowsheet Andres Dante DO Work Phone: [facility] Start: 05-01-2025 End: 05-01-2025 flow sheet Andres Dante DO Work Phone: [facility] Comment on above: 36 weeks gestation o f ([facility]); Third trimester ([facility]); H/O section Start: 05-01-2025 End: 05-01-2025 ambulatory ANDRES DANTE Not Available Start: 04-19-2025 End: 04-19-2025 Office outpatient visit 15 minutes Sera RIVAS Work Phone: [facility] Comment on above: 34 weeks gestation o f ([facility]); Third trimester ([facility]) Start: 04-19-2025 End: 04-19-2025 ambulatory SERA MCKEON Not Available Start: 03-21-2025 End: 03-21-2025 Bamboo flowsheet Kamila Valeriy [employer] Work Phone: [facility] Start: 03-21-2025 End: 03-21-2025 Bamboo flowsheet Kamila Valeriy [employer] Work Phone: [facility] Start: 03-21-2025 End: 03-21-2025 flow sheet Kamila Valeriy [employer] Work Phone: [facility] Comment on above: Size of fetus incons istent with dates in third trimester ([facility]) (Primary Dx); Third trimester ([facility]); 30 weeks gestation of ([facility]) Start: 03-21-2025 End: 03-21-2025 ambulatory KAMILA VALERIY [...] encounter procedure Andres Dante DO Work Phone: [facility] Start: 12-26-2024 End: 12-26-2024 flow sheet [...] Result Encounter Andres Dante DO Work Phone: [facility] External Department Unsolicited Start: 12-20-2024 End: 12-20-2024 Clinisync Result Encounter Andres Dante DO Work Phone: [facility] External Department Unsolicited Start: 11-27-2024 End: 11-27-2024 flow sheet Andres Dante DO Work Phone: [facility] Comment on above: 13 weeks gestation o f ; Second trimester Start: 11-27-2024 End: 11-27-2024 ambulatory ANDRES DANTE Not Available Start: 11-27-2024 End: 11-27-2024 Bamboo flowsheet Andres Dante DO Work Phone: [facility] Start: 11-27-2024 End: 11-27-2024 Bamboo [...] for preprocedural laboratory examination DR ANDRES HOWELL [facility] Start: 07-22-2021 End: 07-22-[address] [...] Date Procedure Procedure Detail Performing Clinician Start: 05-16-2025 OB BPP W NON-STRESS Sera RIVAS Work Phone: Start: 05-14-2025 Urnls dip stick/tabl et rgnt non-auto w/o micrscp Andres Dante DO Work Phone: Start: 05-11-2025 TBH TOTAL PROTEIN 24 HOUR URINE Sera RIVAS Work Phone: Start: 05-10-2025 OB BPP W NON-STRESS Sera RIVAS Work [...] HOWELL H/O: section H/O sectio n Andres Dante DO Work Phone: Plan of Treatment Date Care Activity Detail Author Start: 05-21-2025 End: 05-21-2025 Patient encounter procedure 05/21/2025 9:30 AM EDT Routine [facility] [address] [place] [address] Andres Howell DO [address] [place] [address] ANA RUTLEDGE Start: 05-17-2025 End: 05-17-2025 Professional / ancillary services management ANA PIZARRO OB Start: 05-14-2025 End: 05-14-2025 Patient encounter procedure ANA RUTLEDGE Comment on above: Arrived Start: 05-08-2025 End: 05-08-2026 Alanine aminotransferase [Enzymatic activity/volume] in Serum or Plasma ALT Lab Routine induced hypertension, antepartum ([facility]) Expected: 05/08/2025 (Approximate), Expires: 05/08/2026 [facility] Comment on above: Expected: 05/08/2025 (Approximate), Expires: 05/08/2026 Start: 05-08-2025 End: 05-08-2026 Aspartate aminotransferase [Enzymatic activity/volume] in Serum or Plasma AST Lab Routine induced hypertension, antepartum ([facility]) Expected: 05/08/2025 (Approximate), Expires: 05/08/2026 [facility] Comment on above: Expected: 05/08/2025 (Approximate), Expires: 05/08/2026 Start: 05-08-2025 End: 05-08-2026 CBC W Auto Differential panel - Blood CBC and differential Lab Routine induced hypertension, antepartum ([facility]) Expected: 05/08/2025 (Approximate), Expires: 05/08/2026 [facility] Comment on above: Expected: 05/08/2025 (Approximate), Expires: 05/08/2026 Start: 05-08-2025 End: 05-08-2026 Creatinine [Mass/volume] in Serum or Plasma Creatinine Lab Routine induced hypertension, antepartum ([facility]) Expected: 05/08/2025 (Approximate), Expires: 05/08/2026 [facility] Work Phone: Comment on above: Expected: 05/08/2025 (Approximate), Expires: 05/08/2026 Start: 05-08-2025 End: 05-08-2026 Lactate dehydrogenase [Enzymatic activity/volume] in Serum or Plasma by Lactate to pyruvate reaction Lactate dehydrogenase Lab Routine induced hypertension, antepartum ([facility]) Expected: 05/08/2025, Expires: 05/08/2026 [facility] Comment on above: Expected: 05/08/2025 , Expires: 05/08/2026 Start: 05-08-2025 End: 05-08-2026 Protein, urine, 24 hour Protein, urine, 24 hour Lab Routine induced hypertension, antepartum ([facility]) Expected: 05/08/2025 (Approximate), Expires: 05/08/2026 [facility] Comment on above: Expected: 05/08/2025 (Approximate), Expires: 05/08/2026 Start: 05-08-2025 End: 05-08-2026 Pt and ptt Pt and ptt Lab Routine induced hypertension, antepartum ([facility]) Expected: 05/08/2025, Expires: 05/08/2026 [facility] Comment on above: Expected: 05/08/2025 , Expires: 05/08/2026 Start: 05-08-2025 End: 05-08-2026 Urate [Mass/volume] in Serum or Plasma Uric acid Lab Routine induced hypertension, antepartum ([facility]) Expected: 05/08/2025 (Approximate), Expires: 05/08/2026 [facility] Comment on above: Expected: 05/08/2025 (Approximate), Expires: 05/08/2026 Start: 05-08-2025 End: 05-08-2026 Urea nitrogen [Mass/volume] in Serum or Plasma BUN Lab Routine induced hypertension, antepartum ([facility]) Expected: 05/08/2025, Expires: 05/08/2026 [facility] Comment on above: Expected: 05/08/2025 , Expires: 05/08/2026 Start: 05-08-2025 End: 11-08-2025 US biophysical profile w non stress test US biophysical profile w non stress test Imaging Routine induced hypertension, antepartum ([facility]) Expected: 05/08/2025 (Approximate), Expires: 11/08/2025 [facility] Comment on above: Expected: 05/08/2025 (Approximate), Expires: 11/08/2025 Start: 05-08-2025 End: 05-08-2025 Patient encounter procedure 05/08/2025 11:20 AM EDT Routine [facility] [address] [place] [id number] Sera Mckeon PA [address] [place] [address] [facility] Start: 05-01-2025 End: 05-01-2026 CULTURE, GROUP B STREP WITH SUSCEPTIBLITY CULTURE, GROUP B STREP WITH SUSCEPTIBLITY Lab Routine Third trimester ([facility]) Expected: 05/01/2025, Expires: 05/01/2026 [facility] Work Phone: Comment on above: Expected: 05/01/2025 , Expires: 05/01/2026 Start: 05-01-2025 End: 05-01-2025 Patient encounter procedure [facility] Comment on above: Arrived Start: 03-21-2025 End: 07-21-2025 US for US OB follow up transabdominal approach Imaging Routine Size of fetus inconsistent with dates in third trimester ([facility]) Expected: 03/21/2025, Expires: 07/21/2025 [facility] [...] PM EDT Routine [facility] [address] [facility] [place] [id number] Andres Howell, DO [address] [place] [address] [facility] Start: 01-23-2025 End: 01-23-2026 CBC panel - Blood by Automated count CBC Lab Routine Diabetes mellitus screening Expected: 01/23/2025 (Approximate), Expires: 01/23/2026 [facility] Work Phone: Comment on above: Expected: 01/23/2025 (Approximate), Expires: 01/23/2026 Start: 01-10-2025 End: 01-10-2025 Professional / ancillary services management 01/10/2025 2:30 PM EDT Ancillary Procedure [facility] [address] [place] [phone] [facility] Start: 12-26-2024 End: 02-25-2025 [...] gestational age Expected: 10/26/2024 (Approximate), Expires: 10/26/2025 [facility] Comment on above: Expected: 10/26/2024 (Approximate), Expires: 10/26/2025 Start: 10-26-2024 End: 10-26-2025 Blood type and Indirect antibody screen panel - Blood Type and screen Lab Routine Missed menses , unspecified gestational age Expected: 10/26/2024 (Approximate), Expires: 10/26/2025 [facility] Work Phone: Comment on above: Expected: 10/26/2024 (Approximate), Expires: 10/26/2025 Start: 10-26-2024 End: 10-26-2025 Drugs of abuse panel - Urine by Screen method Rapid drug screen, urine Lab Routine , unspecified gestational age Encounter for supervision of normal first in first trimester Expected: 10/26/2024 (Approximate), Expires: 10/26/2025 [facility] Comment on above: Expected: 10/26/2024 (Approximate), Expires: 10/26/2025 Bacteria identified in Urine by Culture Urine culture Microbiology Routine Missed menses Ordered: 10/26/2024 [facility] Comment on above: Ordered: 10/26/2024 CBC W Auto Different ial panel - Blood CBC and differential Lab Routine Missed menses , unspecified gestational age Ordered: 10/26/2024 [facility] Comment on above: Ordered: 10/26/2024 CHLAMYDIA TRACHOMATI S (GENITO/STI) CHLAMYDIA TRACHOMATIS (GENITO/STI) Lab Routine Vaginal discharge STD exposure Ordered: 12/26/2024 [facility] Comment on above: Ordered: 12/26/2024 Hemoglobin A1c/Hemoglobin.total in Blood Hemoglobin A1c Lab Routine Missed menses , unspecified gestational age Ordered: 10/26/2024 [facility] Comment on above: Ordered: 10/26/2024 Hepatitis B virus gardiner rface Ag [Presence] in Serum or Plasma by Immunoassay Hepatitis B surface antigen Lab Routine Missed menses , unspecified gestational age Ordered: 10/26/2024 [facility] Comment on above: Ordered: 10/26/2024 Hepatitis C virus Ab [Presence] in Serum or Plasma by Immunoassay Hepatitis C antibody Lab Routine Missed menses , unspecified gestational age Ordered: 10/26/2024 [facility] Comment on above: Ordered: 10/26/2024 HIV-1/HIV-2 antigen/antibody combination immunoassay HIV-1 and HIV-2 antibodies Lab Routine Missed menses , unspecified gestational age Ordered: 10/26/2024 [facility] Comment on above: Ordered: 10/26/2024 Neisseria gonorrhoea e DNA [Presence] in Unspecified specimen by JEROD with probe detection Neisseria gonorrhea DNA probe, direct Lab Routine Vaginal discharge STD exposure Ordered: 12/26/2024 [facility] Comment on above: Ordered: 12/26/2024 Reagin Ab [Presence] in Serum by RPR RPR Lab Routine Missed menses , unspecified gestational age Ordered: 10/26/2024 [facility] Comment on above: Ordered: 10/26/2024 Rubella antibody, IgG Rubella an tibody, IgG Lab Routine Missed menses , unspecified gestational age Ordered: 10/26/2024 [facility] Comment on above: Ordered: 10/26/2024 SURESWAB(R) ADVANCED VAGINITIS PLUS, TMA SURESWAB(R) ADVANCED VAGINITIS PLUS, TMA Pathology and Cytology Routine Vaginal discharge STD exposure Ordered: 12/26/2024 [facility] Work Phone: Comment on above: Ordered: 12/26/2024 Thyrotropin [Units/v olume] in Serum or Plasma TSH Lab Routine Thyroid disorder screening Ordered: 12/26/2024 [facility] Comment on above: Ordered: 12/26/2024 Thyroxine (T4) free [Mass/volume] in Serum or Plasma T4, free Lab Routine Thyroid disorder screening Ordered: 12/26/2024 [facility] Comment on above: Ordered: 12/26/2024 Payers Date Payer Category Payer Medicaid MEDICAID [facility] [id number] 2025 Medicaid [id number] 2024 Private Health Insurance [facility] [id number] 1998 Unknown [id number] 2.16.840.1.907172.3.579.2. 593 1998 Unknown [id number] 2.16.840.1.275854.3.579.2. 593 1998 Unknown [id number] 2.16.840.1.123428.3.579.2. 593 1998 Unknown [id number] 2.16.840.1.046446.3.579.2. 593 1998 Unknown [id number] 2.16.840.1.288562.3.579.2. 593 1998 Unknown [id number] 2.16.840.1.452478.3.579.2. 593 1998 Unknown [id number] 2.16.840.1.998820.3.579.2. 593 1998 Unknown [id number] 2.16.840.1.142688.3.579.2. 593 1998 Unknown [id number] 2.16.840.1.774009.3.579.2. 593 1998 Unknown [id number] 2.16.840.1.689112.3.579.2. 593 1998 Unknown [id number] 2.16.840.1.483719.3.579.2. 593 1998 Unknown [id number] 2.16.840.1.331856.3.579.2. 593 1998 Unknown [id number] 2.16.840.1.060583.3.579.2. 593 1998 Unknown [id number] 2.16.840.1.303140.3.579.2. 1259 1998 Unknown [id number] 2.16.840.1.991105.3.579.2. 125 1998 Unknown [id number] 2.16.840.1.356657.3.579.2. 125 1998 Unknown [id number] 2.16.840.1.878819.3.579.2. 125 1998 Unknown [id number] 2.16.840.1.665003.3.579.2. 125 1998 Unknown [id number] 2.16.840.1.992860.3.579.2. 1258 1998 Unknown [id number] 2.16.840.1.070434.3.579.2. 125 1998 Unknown [id number] 2.16.840.1.283431.3.579.2. 125 1998 Unknown [id number] 2.16.840.1.754549.3.579.2. 125 1998 Unknown [id number] 2.16.840.1.419360.3.579.2. 1258 1998 Unknown [id number] 2.16.840.1.757680.3.579.2. 125 1998 Unknown [id number] 2.16.840.1.769911.3.579.2. 1259 1998 Unknown [id number] 2.16.840.1.301832.3.579.2. 1259 1998 Unknown [id number] 2.16.840.1.945135.3.579.2. 1259 1959 Private Health Insurance [id number] Self-pay [id number] Unknown [id number] 2.16.840.1.405369.3.579.2. 593 Social History Date Type Detail Facility Tobacco smoking stat [facility] Tobacco smoking consumption unknown [facility] Start: 09-05-2024 [facility] Start: 1998 Sex assigned at Not on file [facility] Gender identity Not on file [facility] are Medical Equipment Procedure Code Equipment Code Equipment Origin al Text Equipment Identifier Dates 1 strip by In Vi tro route Daily Use in the morning prior to breakfast, 1 hour after each meal for a total of 4times daily. [id number] Start: 12-26-2024 End: 01-25-2025 1 each by In Vit ro route Daily Use to check FSBS four times daily [id number] Start: 12-26-2024 End: 01-25-2025 Clinical Notes 07-28-2021 to 05-14-2025 Katie Flowers MARKETING ADMINISTRATOR - 05/14/2025 8:30 AM ROB العلي - 05/08/2025 11:20 AM EDTTram Traore LPN - 05/01/2025 9:10 AM ROB [...] nursing note reviewed. Exam conducted with a landscape architect and planner present. Vitals: Estimated body mass index is 42.11 kg/m as calculated from the following: Height as of 25: 5' 2 . Weight as of this encounter: 230 lb 4 oz. BP: 128/72 Patient's last menstrual period was 08/17/2024. ASSESSMENT & PLAN ICD-10-CM 1. Third trimester ([facility]) Z34.93 POCT urinalysis dipstick manually resulted 2. 37 weeks gestation of ([facility]) Z3A.37 Patient presents today for a [...] Andres Howell DO documented in this encounter [facility] 05-08-2025 History of Presen t illness Narrative Reason for Appointment: Patient ID: Rosanne Belcher is a 24 y.o. female who presents for Routine Visit Patient presents today for Return OB appointment. MEDICATIONS Current Outpatient Medications Medication Instructions Alcohol Swabs (Alcohol Prep Pad) 70 % pads 1 Pad, Topical, Daily, Use four times daily to check FSBS. Blood Glucose Monitoring Suppl (D-HaveMyShift Glucometer) w/Device kit 1 kit, Does not [...] nursing note reviewed. Exam conducted with a landscape architect and planner present. Vitals: Estimated body mass index is 41.88 kg/m as calculated from the following: Height as of this encounter: 5' 2 . Weight as of this encounter: 229 lb. BP: 130/90 Patient's last menstrual period was 08/17/2024. ASSESSMENT & PLAN ICD-10-CM 1. Third trimester ([facility]) Z34.93 POCT urinalysis dipstick manually resulted 2. 37 weeks gestation of ([facility]) Z3A.37 Return OB: Patient presents today [...] of: ROB Rosenbaum documented in this encounter [facility] 05-01-2025 History of Presen t [...] nursing note reviewed. Exam conducted with a landscape architect and planner present. Vitals: There is no height or weight on file to calculate BMI. BP: 130/82 Patient's last menstrual period was 08/17/2024. ASSESSMENT & PLAN ICD-10-CM 1. 36 weeks gestation of ([facility]) Z3A.36 POCT urinalysis dipstick manually resulted 2. Third trimester ([facility]) Z34.93 POCT urinalysis dipstick manually resulted [...] Andres Howell DO documented in this encounter [facility] 04-19-2025 History of Presen t [...] PLAN ICD-10-CM 1. 34 weeks gestation of ([facility]) Z3A.34 POCT urinalysis dipstick manually resulted 2. Third trimester ([facility]) Z34.93 POCT urinalysis dipstick manually resulted [...] of: ROB Rosenbaum documented in this encounter [facility] 03-21-2025 History of Presen t [...] nursing note reviewed. Exam conducted with a landscape architect and planner present. Vitals: There is no height or weight on file to calculate BMI. BP: Patient's last menstrual period was 08/17/2024. ASSESSMENT & PLAN ICD-10-CM 1. Third trimester ([facility]) Z34.93 POCT urinalysis dipstick manually resulted 2. 30 weeks gestation of ([facility]) Z3A.30 Return OB: Patient presents today [...] Kamila Crooks NP documented in this encounter [facility] 03-07-2025 History of Presen t illness Narrative Reason for Appointment: Patient ID: Rosanne Belcher is a 24 y.o. female who presents for Routine Visit Patient presents today for Return OB appointment. MEDICATIONS Current Outpatient Medications Medication Instructions Alcohol Swabs (Alcohol Prep Pad) 70 % pads 1 Pad, Topical, Daily, Use four times daily to check FSBS. Blood Glucose Monitoring Suppl (JourneyPure-HaveMyShift Glucometer) w/Device kit 1 kit, Does not [...] nursing note reviewed. Exam conducted with a landscape architect and planner present. Vitals: There is no height or [...] Andres Howell DO documented in this encounter [facility] 02-21-2025 History of Presen t [...] nursing note reviewed. Exam conducted with a landscape architect and planner present. Vitals: There is no height or [...] Sera Mckeon PA-C documented in this encounter [facility] 01-23-2025 History of Presen t [...] Felisha Espinoza LPN documented in this encounter [facility] 12-26-2024 History of Presen t [...] Andres Howell DO documented in this encounter [facility] 11-27-2024 History of Presen t [...] nursing note reviewed. Exam conducted with a landscape architect and planner present. Vitals: There is no height or [...] Andres Howell DO documented in this encounter [facility] 10-26-2024 History of Presen t [...] or undercooked meat, and stay away from [facility]. Patient has also been advised to [...] Mervat Carrera MA documented in this encounter [facility] 07-28-2021 Note DISCHARGE SUMMARY Discharge [...] Tylenol, any abdominal pain unrelieved with narcotics. [facility] Signed and Approved by: DR ANDRES HOWELL . 08/05/2021 16:10:00 [facility] 07-28-2021 Note OPERATIVE NOTE OPERATION DATE: 07-28-21 ANESTHETIC:Spinal with Duramorph. SHEETING PULLER:ADRIANA Rodriguez PREOPERATIVE DIAGNOSIS: 1. Intrauterine at 39 [...] to the Recovery Room in stable condition. [facility] Signed and Approved by: DR ANDRES HOWELL . 07/28/2021 18:54:00 [facility] Evaluation note Diagnosis Missed menses , unspecified gestational age Encounter for supervision of normal first in first trimester documented in this encounter [facility] note* Diagnosis 13 weeks gestation of Second trimester state, incidental documented in this encounter [facility] note* Diagnosis Second trimester state, incidental [...] content) DATE CREATED AUTHOR 01/01/2022 [facility] DATE CREATED AUTHOR AUTHOR'S ORGANIZ ATION 05/14/2025 [facility] EPIC Reason for Visit (unrecogniz ed section and content) Reason Comments Amenorrhea Reason Comments Routine Visit Care Teams (unrecognized sec tion and content) Top Hat Body Maker Relationship Specialty Start Date End Date Shilpi Blanton MD [address] [place] [address] PCP - General Family Medicine 10/26/24 Top Hat Body Maker Relationship Specialty Start Date End Date Shilpi Blanton MD [address] [place] [address] PCP - General Family Medicine 10/26/24 Top Hat Body Maker Relationship Specialty Start Date End Date Shilpi Blanton MD [address] [facility] [phone] PCP - General Family Medicine 10/26/24 Top Hat Body Maker Relationship Specialty Start Date End Date Shilpi Blanton MD [address] [place] [facility] [place] [phone] PCP - General Family Medicine 10/26/24 Top Hat Body Maker Relationship Specialty Start Date End Date Shilpi Blanton MD [address] [place] [facility] [place] [address] PCP - General Family Medicine 10/26/24 Top Hat Body Maker Relationship Specialty Start Date End Date Shilpi Blanton MD PCP - General Family Medicine 10/26/24 Top Hat Body Maker Relationship Specialty Start Date End Date Shilpi Blanton MD PCP - General Family Medicine 10/26/24 Top Hat Body Maker Relationship Specialty Start Date End Date Shilpi Blanton MD PCP - General Family Medicine 10/26/24 Top Hat Body Maker Relationship Specialty Start Date End Date Shilpi Blanton MD PCP - General Family Medicine 10/26/24 Top Hat Body Maker Relationship Specialty Start Date End Date Shilpi Blanton MD [address] [place] [facility] [place] [phone] PCP - General Family Medicine 10/26/24 Top Hat Body Maker Relationship Specialty Start Date End Date Shilpi Blanton MD [address] [facility] [place] [phone] PCP - General Family Medicine 10/26/24 Top Hat Body Maker Relationship Specialty Start Date End Date Shilpi Blanton MD [address] [facility] [place] [phone] PCP - General Family Medicine 10/26/24 Top Hat Body Maker Relationship Specialty Start Date End Date Shilpi Blanton MD [address] [facility] [place] [address] PCP - General Family Medicine 10/26/24 Top Hat Body Maker Relationship Specialty Start Date End Date Shilpi Blanton MD [address] [facility] [place] [address] PCP - General Family Medicine 10/26/24 Top Hat Body Maker Relationship Specialty Start Date End Date Shilpi Blanton MD [address] [facility] [place] [address] PCP - General Family Medicine 10/26/24 Top Hat Body Maker Relationship Specialty Start Date End Date Shilpi Blanton MD [address] [facility] [place] [address] PCP - General Family Medicine 10/26/24 [...] BE BASED ON THE PRIMARY CLINICAL RECORDS. [facility] [employer] [facility]. provides no warranty or guarantee of the accuracy or completeness of information in this document.
[2025-05-19 13:18] VITALS: TEMP 36.4
[2025-05-19 13:19] VITALS: BP 124/66; PULSE 98
[2025-05-19 14:08] VITALS: BP 124/63; PULSE 96
== END 2025-05-19 14:16 | disposition home or self-care (01) ==
LOC: FBCO 13:05 → FBC 13:08
PROVIDERS: PCP Family Medicine; Visit Provider Obstetrics & Gynecology
DX: O16.3 Unspecified maternal hypertension, third trimester (principal); Z3A.39 39 weeks gestation of pregnancy
CPT/HCPCS: 59025

== ENCOUNTER 2025-05-22 05:24 | Inpatient (IN) | payer MEDICAID, SELFPAY ==
[2025-05-22] VITALS (32 sets, daily range): BP systolic 113–153; BP diastolic 59–90; PULSE 67–97; TEMP 36.3–36.8; O2SAT 96–100
--- OUTSIDE RECORDS SUMMARY | 2025-05-22 05:29 | XMS_ITS | CCD ---
Author Organization [facility] Care Team Providers Care Pattern Cleaner Name Role Phone DANTE, DR CAMPOS Admitting [...] Unavailable BLANTON, DR SHILPI Rios Admitting Unavailable BLUE GRASS, DR DARCY Mondragon Consulting Unavailable FRANNY, DR [...] Facility (1 source) cefdinir Drug Allergy [facility] Repository (2 sources) Cephalosporins (Antibiotic) Drug allergy (disorder) [facility] Repository (1 source) Dextrothyroxine Drug Allergy [facility] Repository (20 sources) cefdinir Drug Allergy 5 [facility] (20 sources) Other Propensity to adverse reactions 5 [facility] Medications Current Medications Medication Drug [...] End: 12-26-2025 Blood Glucose Monitoring Sup pl (D-Mc4 Glucometer) w/Device kit Indications: Gestational diabetes mellitus [...] antepartum, gestational diabetes method of control unspecified ([facility]) , Elevated glucose tolerance test Apply [...] OB BPP W NON-STRESS on 05-16-[address] [address] Ultrasound Report Signed Patient: ROSANNE BELCHER MR#: [id number] : 2000 Acct:[id number] Age/Sex: 24 / F ADM Date: 05/16/25 Loc: US Attending Dr: Sera Mckeon Ordering Physician: Sera Mckeon Date of Service: 05/16/25 Procedure(s): US OB BPP w non-stress Accession Number(s): [id number] cc: Sera Mckeon; Shilpi Blanton M.D. The [address] [address] Patient Name: ROSANNE BELCHER MRN: [facility]:[id number] date: 2000 Sex: F Assigned Patient Location: US Current Patient Location: Accession/Order Number: [id number] Exam Date: 05/16/2025 13:05 Report Date: 05/16/2025 [...] Mcgee M.D. 05/16/2025 1:06 PM Dictation Location: [place] [address] Electronically authenticated by: [id number] Y Date: 05/16/2025 13:06 Dictated By: Beto Mcgee D.O. Signed By: 05/16/25 1309 DD/ 1306 TD/TT: Retail Selling Floor Leader: [facility] Radiology, Radiologist, - 05/16/2025 [place] [address] Ultrasound Report Signed Patient: ROSANNE BELCHER MR#: [id number] : 2000 Acct:[id number] Age/Sex: 24 / F ADM Date: 05/16/25 Loc: US Attending Dr: Sera Mckeon Ordering Physician: Sera Mckeon Date of Service: 05/16/25 Procedure(s): US OB BPP w non-stress Accession Number(s): [id number] cc: Shilpi Leo M.D. The [address] [address] Patient Name: ROSANNE BELCHER MRN: [facility]:[id number] date: 2000 Sex: F Assigned Patient Location: US Current Patient Location: Accession/Order Number: [id number] Exam Date: 05/16/2025 13:05 Report Date: 05/16/2025 [...] Mcgee M.D. 05/16/2025 1:06 PM Dictation Location: [place] [address] Electronically authenticated by: [id number] Y Date: 05/16/2025 13:06 Dictated By: Beto Mcgee D.O. Signed By: 05/16/25 1309 DD/ 1306 TD/TT: Retail Selling Floor Leader: [facility] Radiology Study observation (narrative) [facility] US OB BPP W NON-STRESS Ordered By: Radiologist Radiology on 05-16-2025 [facility] Work Phone: Urinalysis macro (dipstick) panel (U)on 05-14-2025 Bilirubin, UA Negative Negative - 4(70) +++ mg/dL [facility] Blood, UA Negative Negative - 50 Willard/mcL [facility] Clarity, UA Clear [facility] Color, UA Yellow [facility] Glucose, UA Negative Negative - 1999(110) ++++ mg/dL [facility] Interpretation and review of laboratory results Normal [facility] Ketones, UA Negative Negative - 160(16) ++++ mg/dL [facility] Leukocytes, UA Negative Negative - 500+++ Charlie/mcL [facility] Nitrite, UA Negative Negative - Positive [facility] pH, UA 6 5 - 9 [facility] Protein, UA Negative Negative - 1999(20) ++++ mg/dL [facility] Spec Grav, UA 1.015 1 - 1.03 [facility] Urobilinogen, UA 0.2 0.2 - 12 mg/dL [facility] TB TOTAL PROTEIN 24 HOUR UR INEon 05-11-2025 Interpretation and review of laboratory results Abnormal [facility] Protein (U) [Mass/Vol] 6.3 mg/dL NINF - 11.9 mg/dL [facility] TBH TOTAL PROTEIN 24 HOUR URINE 157.5 High NINF [facility] TOTAL VOLUME 24 HOUR URINE 2500 mL/24hr [facility] US OB BPP W NON-STRESS on 05-10-2025 [place] [address] Ultrasound Report Signed Patient: ROSANNE BELCHER MR#: [id number] : 2000 Acct:[id number] Age/Sex: 24 / F ADM Date: 05/09/25 Loc: US Attending Dr: Sera Mckeon Ordering Physician: Sera Mckeon Date of Service: 05/09/25 Procedure(s): US OB BPP w non-stress Accession Number(s): [id number] cc: Sera Mckeon; Shilpi Blanton M.D. The [place] [id number] Patient Name: ROSANNE BELCHER MRN: [facility]:[id number] date: 2000 Sex: F Assigned Patient Location: Current Patient Location: Accession/Order Number: [id number] Exam Date: 05/10/2025 09:03 Report Date: 05/10/2025 09:05 At the request of: SERA MCKEON Procedure: US OB BPP w non-stress Biophysical profile. Reason for exam: -induced hypertension COMPARISON: None TECHNIQUE: Transabdominal imaging of the gravid uterus was obtained. FINDINGS: The reservation manager reports a BPP of 8 out of 8. [place] is normal at 15.5 cm. heart rate 136 bpm. Incidental note is made of right-sided pelviectasis. US/US OB BPP w non-stress IMPRESSION: BPP 8 out of 8. Right pelviectasis. Impression dictated by: Guanaco Davenport Jr., D.O. 05/10/2025 9:05 AM Dictation Location: [facility] Electronically authenticated by: [id number] Y Date: 05/10/2025 09:05 Dictated By: Guanaco Davenport M.D. Signed By: 05/10/25907 DD/ 4 TD/TT: Retail Selling Floor Leader: [facility] Radiology, Radiologist, - 05/10/2025 [place] [address] Ultrasound Report Signed Patient: ROSANNE BELCHER MR#: [id number] : 2000 Acct:[id number] Age/Sex: 24 / F ADM Date: 05/09/25 Loc: US Attending Dr: Srea Mckeon Ordering Physician: Sera Mckeon Date of Service: 05/09/25 Procedure(s): US OB BPP w non-stress Accession Number(s): [id number] cc: Sera Mckeon; Shilpi Blanton M.D. The [place] [address] Patient Name: ROSANNE BELCHER MRN: [facility]:[id number] date: 2000 Sex: F Assigned Patient Location: US Current Patient Location: Accession/Order Number: [id number] Exam Date: 05/10/2025 09:03 Report Date: 05/10/2025 09:05 At the request of: SERA MCKEON Procedure: US OB BPP w non-stress Biophysical profile. Reason for exam: -induced hypertension COMPARISON: None TECHNIQUE: Transabdominal imaging of the gravid uterus was obtained. FINDINGS: The reservation manager reports a BPP of 8 out of 8. [place] is normal at 15.5 cm. heart rate 136 bpm. Incidental note is made of right-sided pelviectasis. US/US OB BPP w non-stress IMPRESSION: BPP 8 out of 8. Right pelviectasis. Impression dictated by: Guanaco Davenport Jr., D.O. 05/10/2025 9:05 AM Dictation Location: [facility] Electronically authenticated by: [id number] Y Date: 05/10/2025 09:05 Dictated By: Guanaco Davenport M.D. Signed By: 05/10/25907 DD/ 4 TD/TT: Retail Selling Floor Leader: [facility] Radiology Study observation (narrative) [facility] US OB BPP W NON-STRESS Ordered By: Radiologist Radiology on 05-10-2025 [facility] Work Phone: ALL CBC WITH AUTO DIFFon BASOPHILS ABSOLUTE AUTO 0 [facility] Basophils/100 WBC (Bld) 0.1 % Low 0.2 - 2.0 % [facility] Eosinophils/100 WBC (Bld) 0.9 % 0.9 - 7.0 % [facility] Erythrocyte distribution width (RBC) [Ratio] 13.9 % 11.0 - 15.0 % [facility] Hematocrit (Bld) [Volume fraction] 31.3 % Low 36.0 - 48.0 % [facility] Hemoglobin (Bld) [Mass/Vol] 10.1 g/dL Low 12.0 - 16.0 g/dL [facility] IMMATURE GRANULOCYTES ABS AUTO 0.01 [facility] Immature granulocytes/100 WBC (Bld) 0.1 % 0.0 - 0.5 % [facility] Interpretation and review of laboratory results Abnormal [facility] LYMPHOCYTES ABSOLUTE AUTO 1.6 [facility] Lymphocytes/100 WBC (Bld) 19.5 % Low 20.5 - 60.0 % [facility] MCH (RBC) [Entitic mass] 24.5 pg Low 26.7 - 34.0 pg [facility] MCHC (RBC) [Mass/Vol] 32.3 g/dL 29.9 - 35.2 g/dL [facility] MCV (RBC) [Entitic vol] 75.8 fL Low 81.0 - 99.0 fL [facility] MONOCYTES ABSOLUTE AUTO 0.7 [facility] Monocytes/100 WBC (Bld) 8.3 % 1.7 - 12.0 % [facility] NEUTROPHILS ABSOLUTE AUTO 5.8 [facility] Neutrophils/100 WBC (Bld) 71.1 % 43.0 - 75.0 % [facility] Platelet mean volume (Bld) [Entitic vol] 10.3 fL 9.5 - 13.5 fL [facility] TBH EO # 0.1 [facility] PLT 264 [facility] TB RBC 4.13 Low [facility] WBC 8.1 [facility] Urinalysis macro (dipstick) panel (U)on 05-08-2025 Bilirubin, UA Negative Negative - 4(70) +++ mg/dL [facility] Blood, UA Negative Negative - 50 Willard/mcL [facility] Clarity, UA Clear [facility] Color, UA Yellow [facility] Glucose, UA Negative Negative - 1999(110) ++++ mg/dL [facility] Interpretation and review of laboratory results Normal [facility] Ketones, UA Negative Negative - 160(16) ++++ mg/dL [facility] Leukocytes, UA Negative Negative - 500+++ Charlie/mcL [facility] Nitrite, UA Negative Negative - Positive [facility] pH, UA 6 5 - 9 [facility] Protein, UA Negative Negative - 1999(20) ++++ mg/dL [facility] Spec Grav, UA 1.02 1 - 1.03 [facility] Urobilinogen, UA 1.0 0.2 - 12 mg/dL [facility] Urinalysis macro (dipstick) panel (U)on 05-01-2025 Bilirubin, UA Negative Negative - 4(70) +++ mg/dL [facility] Blood, UA Negative Negative - 50 Willard/mcL [facility] Clarity, UA Clear [facility] Color, UA Yellow [facility] Glucose, UA Negative Negative - 1999(110) ++++ mg/dL [facility] Interpretation and review of laboratory results Normal [facility] Ketones, UA Negative Negative - 160(16) ++++ mg/dL [facility] Leukocytes, UA Negative Negative - 500+++ Charlie/mcL [facility] Nitrite, UA Negative Negative - Positive [facility] pH, UA 6 5 - 9 [facility] Protein, UA Negative Negative - 1999(20) ++++ mg/dL [facility] Spec Grav, UA 1.02 1 - 1.03 [facility] Urobilinogen, UA 1.0 0.2 - 12 mg/dL [facility] US OB FOLLOW UP TRANSABDOMIN AL APPROACHon [...] UA Negative Negative - 4(70) +++ mg/dL [facility] Blood, UA Negative Negative - 50 Willard/mcL [facility] Clarity, UA Clear [facility] Color, UA Yellow [facility] Glucose, UA Negative Negative - 1999(110) ++++ mg/dL [facility] Interpretation and review of laboratory results Normal [facility] Ketones, UA Negative Negative - 160(16) ++++ mg/dL [facility] Leukocytes, UA Negative Negative - 500+++ Charlie/mcL [facility] Nitrite, UA Negative Negative - Positive [facility] pH, UA 6 5 - 9 [facility] Protein, UA Negative Negative - 2000(20) ++++ mg/dL [facility] Spec Grav, UA 1.01 1 - 1.03 [facility] Urobilinogen, UA 1.0 0.2 - 12 mg/dL [facility] Urinalysis macro (dipstick) panel (U)on 03-21-2025 Bilirubin, UA Negative Negative - 4(70) +++ mg/dL [facility] Blood, UA Negative Negative - 50 Willard/mcL [facility] Clarity, UA Clear [facility] Color, UA Yellow [facility] Glucose, UA Negative Negative - 1999(110) ++++ mg/dL [facility] Interpretation and review of laboratory results Normal [facility] Ketones, UA Negative Negative - 160(16) ++++ mg/dL [facility] Leukocytes, UA Negative Negative - 500+++ Charlie/mcL [facility] Nitrite, UA Negative Negative - Positive [facility] pH, UA 6.5 5 - 9 [facility] Protein, UA Negative Negative - 1999(20) ++++ mg/dL [facility] Spec Grav, UA 1.015 1 - 1.03 [facility] Urobilinogen, UA 0.2 0.2 - 12 mg/dL [facility] US OB GROWTHon 03-14-2025 [place] [address] Ultrasound Report Signed Patient: ROSANNE BELCHER MR#: [id number] : 2000 Acct:[id number] Age/Sex: 24 / F ADM Date: 03/14/25 Loc: US Attending Dr: Sera Mckeon Ordering Physician: Sera Mckeon Date of Service: 03/14/25 Procedure(s): US OB growth Accession Number(s): [id number] cc: Sera Mckeon; Shilpi Blanton M.D. [address] [address] Patient Name: ROSANNE BELCHER MRN: [facility]:[id number] date: 2000 Sex: F Assigned Patient Location: Current Patient Location: US Accession/Order Number: [id number] Exam Date: 03/14/2025 15:38 Report Date: 03/14/2025 [...] Jr., D.O. 03/14/2025 3:41 PM Dictation Location: [place] [address] Electronically authenticated by: [id number] Y Date: 03/14/2025 15:41 Dictated By: Guanaco Davenport M.D. Signed By: 03/14/25 1544 DD/ 1541 TD/TT: Retail Selling Floor Leader: [facility] Radiology, Radiologist, MD - 03/14/2025 The [place] [id number] Ultrasound Report Signed Patient: ROSANNE BELCHER MR#: [id number] : 2000 Acct:[id number] Age/Sex: 24 / F ADM Date: 03/14/25 Loc: US Attending Dr: Sera Mckeon Ordering Physician: Sera Mckeon Date of Service: 03/14/25 Procedure(s): US OB growth Accession Number(s): [id number] cc: Sera Mckeon; Shilpi Blanton M.D. The [address] [address] Patient Name: ROSANNE BELCHER MRN: [facility]:[id number] date: 2000 Sex: F Assigned Patient Location: US Current Patient Location: US Accession/Order Number: [id number] Exam Date: 03/14/2025 15:38 Report Date: 03/14/2025 [...] Jr., D.O. 03/14/2025 3:41 PM Dictation Location: [place] [address] Electronically authenticated by: [id number] Y Date: 03/14/2025 15:41 Dictated By: Guanaco Davenport M.D. Signed By: 03/14/25 1544 DD/ 1541 TD/TT: Retail Selling Floor Leader: [facility] Radiology Study observation (narrative) [facility] US OB GROWTHOrdered By: Joaquin ologist Radiology on 03-14-2025 [facility] Work Phone: ALL CBC WITH AUTO DIFFon BASOPHILS ABSOLUTE AUTO 0 [facility] Basophils/100 WBC (Bld) 0.2 % 0.2 - 2.0 % [facility] Eosinophils/100 WBC (Bld) 1 % 0.9 - 7.0 % [facility] Erythrocyte distribution width (RBC) [Ratio] 12.4 % 11.0 - 15.0 % [facility] Hematocrit (Bld) [Volume fraction] 33.6 % Low 36.0 - 48.0 % [facility] Hemoglobin (Bld) [Mass/Vol] 11.1 g/dL Low 12.0 - 16.0 g/dL [facility] IMMATURE GRANULOCYTES ABS AUTO 0.02 [facility] Immature granulocytes/100 WBC (Bld) 0.2 % 0.0 - 0.5 % [facility] Interpretation and review of laboratory results Abnormal [facility] LYMPHOCYTES ABSOLUTE AUTO 1.6 [facility] Lymphocytes/100 WBC (Bld) 17.6 % Low 20.5 - 60.0 % [facility] MCH (RBC) [Entitic mass] 27.3 pg 26.7 - 34.0 pg [facility] MCHC (RBC) [Mass/Vol] 33 g/dL 29.9 - 35.2 g/dL [facility] MCV (RBC) [Entitic vol] 82.8 fL 81.0 - 99.0 fL [facility] MONOCYTES ABSOLUTE AUTO 0.5 [facility] Monocytes/100 WBC (Bld) 6.1 % 1.7 - 12.0 % [facility] NEUTROPHILS ABSOLUTE AUTO 6.6 High [facility] Neutrophils/100 WBC (Bld) 74.9 % 43.0 - 75.0 % [facility] Platelet mean volume (Bld) [Entitic vol] 10 fL 9.5 - 13.5 [facility]L [facility] PLT 283 [facility] RBC 4.06 Low [facility] WBC 8.9 [facility] Urinalysis macro (dipstick) panel (U)on 03-07-2025 Bilirubin, UA Negative Negative - 4(70) +++ mg/dL [facility] Blood, UA Negative Negative - 50 Willard/mcL [facility] Clarity, UA Clear [facility] Color, UA Yellow [facility] Glucose, UA Negative Negative - 1999(110) ++++ mg/dL [facility] Interpretation and review of laboratory results Normal [facility] Ketones, UA Negative Negative - 160(16) ++++ mg/dL [facility] Leukocytes, UA Negative Negative - 500+++ Charlie/mcL [facility] Nitrite, UA Negative Negative - Positive [facility] pH, UA 6.5 5 - 9 [facility] Protein, UA Negative Negative - 1999(20) ++++ mg/dL [facility] Spec Grav, UA 1.015 1 - 1.03 [facility] Urobilinogen, UA 0.2 0.2 - 12 mg/dL [facility] Urinalysis macro (dipstick) panel (U)on 02-21-2025 Bilirubin, UA Negative Negative - 4(70) +++ mg/dL [facility] Blood, UA Negative Negative - 50 Willard/mcL [facility] Clarity, UA Clear [facility] Color, UA Yellow [facility] Glucose, UA Negative Negative - 1999(110) ++++ mg/dL [facility] Interpretation and review of laboratory results Normal [facility] Ketones, UA Negative Negative - 160(16) ++++ mg/dL [facility] Leukocytes, UA Negative Negative - 500+++ Charlie/mcL [facility] Nitrite, UA Negative Negative - Positive [facility] pH, UA 6.5 5 - 9 [facility] Protein, UA Negative Negative - 1999(20) ++++ mg/dL [facility] Spec Grav, UA 1.01 1 - 1.03 [facility] Urobilinogen, UA 0.2 0.2 - 12 mg/dL [facility] Urinalysis macro (dipstick) panel (U)on 01-23-2025 Bilirubin, UA Negative Negative - 4(70) +++ mg/dL [facility] Blood, UA Negative Negative - 50 Willard/mcL [facility] Clarity, UA Clear [facility] Color, UA Yellow [facility] Glucose, UA Negative Negative - 1999(110) ++++ mg/dL [facility] Interpretation and review of laboratory results Normal [facility] Ketones, UA Negative Negative - 160(16) ++++ mg/dL [facility] Leukocytes, UA Negative Negative - 500+++ Charlie/mcL [facility] Nitrite, UA Negative Negative - Positive [facility] pH, UA 6.5 5 - 9 [facility] Protein, UA Negative Negative - 2000(20) ++++ mg/dL [facility] Spec Grav, UA 1.02 1 - 1.03 [facility] Urobilinogen, UA 0.2 0.2 - 12 mg/dL [facility] US OB 14+ WEEKS ANATOMY SCAN on [...] II, MD, PHD at 13-Jan-2025 06:46:09 PM [facility] Normal Not Available Comment on above: [...] UA Negative Negative - 4(70) +++ mg/dL [facility] Blood, UA Negative Negative - 50 Willard/mcL [facility] Clarity, UA Clear [facility] Color, UA Yellow [facility] Glucose, UA Negative Negative - 1999(110) ++++ mg/dL [facility] Interpretation and review of laboratory results Normal [facility] Ketones, UA Negative Negative - 160(16) ++++ mg/dL [facility] Leukocytes, UA Negative Negative - 500+++ Charlie/mcL [facility] Nitrite, UA Negative Negative - Positive [facility] pH, UA 6 5 - 9 [facility] Protein, UA Negative Negative - 1999(20) ++++ mg/dL [facility] Spec Grav, UA 1.02 1 - 1.03 [facility] Urobilinogen, UA 0.2 0.2 - 12 mg/dL [facility] GLUCOSE TOLERANCE 3 HOURon 0 12-20-2024 GLUCOSE TOLERANCE 3 HOUR mg/dL [facility] Comment on above: GLU FAST 93 (<95) Co l: 12/20/24 0741 GLU 1HR 141 (<180) Col: 12/20/24 0849 GLU 2HR 131 (<155) Col: 12/20/24 0949 GLU 3HR 99 (<140) Col: 12/20/24 1052 [facility] Urinalysis macro (dipstick) panel (U)on 11-27-2024 Bilirubin, UA Negative Negative - 4(70) +++ mg/dL [facility] Blood, UA Negative Negative - 50 Willard/mcL [facility] Clarity, UA Clear [facility] Color, UA Yellow [facility] Glucose, UA Negative Negative - 1999(110) ++++ mg/dL [facility] Interpretation and review of laboratory results Normal [facility] Ketones, UA Negative Negative - 160(16) ++++ mg/dL [facility] Leukocytes, UA Negative Negative - 500+++ Charlie/mcL [facility] Nitrite, UA Negative Negative - Positive [facility] pH, UA 5.5 5 - 9 [facility] Protein, UA Negative Negative - 1999(20) ++++ mg/dL [facility] Spec Grav, UA 1.005 1 - 1.03 [facility] Urobilinogen, UA 0.2 0.2 - 12 mg/dL [facility] MLR HEMOGLOBIN A1Con 025 Glucose [Mass/Vol] 120 mg/dL [facility] HbA1c (Bld) [Mass fraction] 5.8 % 4.5 - 6.2 % [facility] Comment on above: ADA RECOMMENDED LIMI T 4.0 - 6.0 ADA THERAPEUTIC TARGET < 7.0 ACTION SUGGESTED > 7.0 [facility] HCG ( test) Ql (U)o n 10-26-2024 Interpretation and review of laboratory results Abnormal [facility] Preg Test, Ur Positive Negative [facility] US OB TRANSVAGINALon 025 US OB TRANSVAGINAL [...] report is generated using voice recognition reporting ([employer]). On occasion, [employer] erroneously drops words from the report or [...] UA Negative Negative - 4(70) +++ mg/dL [facility] Blood, UA Negative Negative - 50 Willard/mcL [facility] Clarity, UA Clear [facility] Color, UA Yellow [facility] Glucose, UA Negative Negative - 2000(110) ++++ mg/dL [facility] Interpretation and review of laboratory results Normal [facility] Ketones, UA Negative Negative - 160(16) ++++ mg/dL [facility] Leukocytes, UA Negative Negative - 500+++ Charlie/mcL [facility] Nitrite, UA Negative Negative - Positive [facility] pH, UA 6.5 5 - 9 [facility] Protein, UA Negative Negative - 2000(20) ++++ mg/dL [facility] Spec Grav, UA 1.005 1 - 1.03 [facility] Urobilinogen, UA 0.2 0.2 - 12 mg/dL [facility] US SINGLE QUAD RT UPPERon US SINGLE [...] DARCY AU Date: 2021-12-26 16:10 Normal [facility] CBC AUTO DIFFon 07-29-2021 BASO # 0.0 103/ul Normal 0.0-0.1 [facility] Comment on above: Performed By: #### D RUGRPD #### [facility] [address] [place] [address] Dr. Brian Abdi Basophils/100 WBC (Bld) 0.2 % Normal 0.2-2.0 [facility] Comment on above: Performed By: #### D RUGRPD #### [facility] [address] [place] [address] Dr. Brian Abdi EO # 0.1 103/ul Normal 0.0-0.7 [facility] Comment on above: Performed By: #### D RUGRPD #### [facility] [address] [place] [address] Dr. Brian Abdi Eosinophils/100 WBC (Bld) 0.5 % Critically low 0.9-7.0 [facility] Comment on above: Performed By: #### D RUGRPD #### [facility] [address] [place] [address] Dr. Brian Abdi Erythrocyte distribution width (RBC) [Ratio] 13.9 % Normal 11.0-15.0 [facility] Comment on above: Performed By: #### D RUGRPD #### [facility] [address] [place] [address] Dr. Brian Abdi Hematocrit (Bld) [Volume fraction] 25.7 % Critically low 36.0-48.0 [facility] Comment on above: Performed By: #### D RUGRPD #### [facility] [address] [place] [address] Dr. Brian Abdi Hemoglobin (Bld) [Mass/Vol] 8.2 g/dL Critically low 12.0-16.0 [facility] Comment on above: Result Comment: SURESH ENT DELIVERED Performed By: #### D RUGRPD #### [facility] [address] [place] [address] Dr. Brian Abdi IG # 0.04 10e3/ul Critically high 0.00-0.03 [facility] Comment on above: Performed By: #### D RUGRPD #### [facility] [address] [place] [address] Dr. Brian Abdi IG % 0.4 % Normal 0.0-0.5 [facility] Comment on above: Performed By: #### D RUGRPD #### [facility] [address] [address] [address] Brian Abdi LYMPH # 2.4 103/ul Normal 1.2-3.8 [facility] Comment on above: Performed By: #### D RUGRPD #### [facility] [address] [address] [address] Brian Abdi Lymphocytes/100 WBC (Bld) 23.6 % Normal 20.5-60.0 [facility] Comment on above: Performed By: #### D RUGRPD #### [facility] [address] [place] [address] Dr. Brian Abdi MANUAL DIFF REQ NO Normal [facility] Comment on above: Performed By: #### D RUGRPD #### [facility] [address] [place] [address] Dr. Brian Abdi MCH (RBC) [Entitic mass] 27.6 pg Normal 26.7-34.0 [facility] Comment on above: Performed By: #### D RUGRPD #### [facility] [address] [place] [address] Dr. Brian Abdi MCHC (RBC) [Mass/Vol] 31.9 g/dL Normal 29.9-35.2 [facility] Comment on above: Performed By: #### D RUGRPD #### [facility] [address] [place] [address] Dr. Brian Abdi MCV (RBC) [Entitic vol] 86.5 fL Normal 81.0-99.0 [facility] Comment on above: Performed By: #### D RUGRPD #### [facility] [address] [place] [address] Dr. Brian Abdi MONO # 0.7 103/ul Normal 0.3-0.8 [facility] Comment on above: Performed By: #### D RUGRPD #### [facility] [address] [place] [address] Dr. Brian Abdi Monocytes/100 WBC (Bld) 7.3 % Normal 1.7-12.0 [facility] Comment on above: Performed By: #### D RUGRPD #### [facility] [address] [place] [address] Dr. Brian Abdi NEUT # 6.8 103/ul Critically high 1.4-6.5 [facility] Comment on above: Performed By: #### D RUGRPD #### [facility] [address] [place] [address] Dr. Brian Abdi Neutrophils/100 WBC (Bld) 68.0 % Normal 43.0-75.0 [facility] Comment on above: Performed By: #### D RUGRPD #### [facility] [address] [place] [address] Dr. Brian Abid Platelet mean volume (Bld) [Entitic vol] 9.8 fL Normal 9.5-13.5 [facility] Comment on above: Performed By: #### D RUGRPD #### [facility] [address] [place] [address] Dr. Brian Abdi PLT 204 103/ul Normal 150-450 [facility] Comment on above: Performed By: #### D RUGRPD #### [facility] [address] [place] [address] Dr. Brian Abdi RBC 2.97 106/ul Critically low 4.20-5.40 [facility] Comment on above: Performed By: #### D RUGRPD #### [facility] [address] [place] [address] Dr. Brian Abdi WBC 10.0 103/ul Normal 4.0-11.0 [facility] Comment on above: Performed By: #### D RUGRPD #### [facility] [address] [place] [address] Dr. Brian Abdi CBC AUTO DIFFon 07-28-2021 BASO # 0.0 103/ul Normal 0.0-0.1 [facility] Comment on above: Performed By: #### H H #### [facility] [address] [place] [address] Sunitha Ugalde Basophils/100 WBC (Bld) 0.3 % Normal 0.2-2.0 [facility] Comment on above: Performed By: #### H H #### [facility] [address] [place] [address] Sunitha Tram EO # 0.0 103/ul Normal 0.0-0.7 [facility] Comment on above: Performed By: #### H H #### [facility] [address] [place] [address] Sunitha Tram Eosinophils/100 WBC (Bld) 0.6 % Critically low 0.9-7.0 [facility] Comment on above: Performed By: #### H H #### [facility] [address] [place] [address] Sunitha Tram Erythrocyte distribution width (RBC) [Ratio] 14.1 % Normal 11.0-15.0 [facility] Comment on above: Performed By: #### H H #### [facility] [address] [place] [address] Sunitha Tram Hematocrit (Bld) [Volume fraction] 34.5 % Critically low 36.0-48.0 [facility] Comment on above: Performed By: #### H H #### [facility] [address] [place] [address] Sunitha Tram Hemoglobin (Bld) [Mass/Vol] 10.8 g/dL Critically low 12.0-16.0 [facility] Comment on above: Performed By: #### H H #### [facility] [address] [place] [address] Sunitha Tram IG # 0.02 10e3/ul Normal 0.00-0.03 [facility] Comment on above: Performed By: #### H H #### [facility] [address] [place] [address] Sunitha Tram IG % 0.3 % Normal 0.0-0.5 [facility] Comment on above: Performed By: #### H H #### [facility] [address] [place] [address] Sunitha Tram LYMPH # 1.8 103/ul Normal 1.2-3.8 [facility] Comment on above: Performed By: #### H H #### [facility] [address] [place], [place] [address] Sunitha Uaglde Lymphocytes/100 WBC (Bld) 25.4 % Normal 20.5-60.0 [facility] Comment on above: Performed By: #### H H #### [facility] [address] [place], [place] [address] Sunitha Ugalde MANUAL DIFF REQ NO Normal [facility] Comment on above: Performed By: #### H H #### [facility] [address] [place], [place] [address] Sunithajack Ugalde MCH (RBC) [Entitic mass] 27.3 pg Normal 26.7-34.0 [facility] Comment on above: Performed By: #### H H #### [facility] [address] [place], [place] [address] Sunithajack Ugalde MCHC (RBC) [Mass/Vol] 31.3 g/dL Normal 29.9-35.2 [facility] Comment on above: Performed By: #### H H #### [facility] [address] [place] [address] Sunithajack Ugalde MCV (RBC) [Entitic vol] 87.3 fL Normal 81.0-99.0 [facility] Comment on above: Performed By: #### H H #### [facility] [address] [place] [address] Sunithajack Salesen MONO # 0.6 103/ul Normal 0.3-0.8 [facility] Comment on above: Performed By: #### H H #### [facility] [address] [place] [address] Sunithajack Ugalde Monocytes/100 WBC (Bld) 8.7 % Normal 1.7-12.0 [facility] Comment on above: Performed By: #### H H #### [facility] [address] [place] [address] Sunitha Tram NEUT # 4.7 103/ul Normal 1.4-6.5 [facility] Comment on above: Performed By: #### H H #### [facility] [address] [place] [address] Sunitha Tram Neutrophils/100 WBC (Bld) 64.7 % Normal 43.0-75.0 [facility] Comment on above: Performed By: #### H H #### [facility] [address] [place] [address] Sunitha Ugalde Platelet mean volume (Bld) [Entitic vol] 9.8 fL Normal 9.5-13.5 [facility] Comment on above: Performed By: #### H H #### [facility] [address] [place] [address] Sunitha Ugalde PLT 240 103/ul Normal 150-450 [facility] Comment on above: Performed By: #### H H #### [facility] [address] [place] [address] Sunitha Ugalde RBC 3.95 106/ul Critically low 4.20-5.40 [facility] Comment on above: Performed By: #### H H #### [facility] [address] [place] [address] Sunitha Ugalde WBC 7.3 103/ul Normal 4.0-11.0 [facility] Comment on above: Performed By: #### H H #### [facility] [address] [place] [address] Sunitha Ugalde DRUG SCREEN RAPID (URINE)on 07-28-2021 AMP Negative Normal NEGATIVE [facility] Comment on above: Performed By: #### D RUGRPD #### [facility] [address] [place] [address] Dr. Brian Abdi BAR Negative Normal NEGATIVE [facility] Comment on above: Performed By: #### D RUGRPD #### [facility] [address] [place] [address] Dr. Brian Abdi BUP Negative Normal NEGATIVE [facility] Comment on above: Performed By: #### D RUGRPD #### [facility] [address] [place] [address] Dr. Brian Abdi BZO Negative Normal NEGATIVE [facility] Comment on above: Performed By: #### D RUGRPD #### [facility] [address] [place] [address] Dr. Brian Abdi LISA Negative Normal NEGATIVE [facility] Comment on above: Performed By: #### D RUGRPD #### [facility] [address] [place] [address] Dr. Brian Abdi CUT-OFFS SEE BELOW Normal [facility] Comment on above: Result Comment: AMP [...] ng/mL Performed By: #### D RUGRPD #### [facility] [address] [place] [address] Dr. Brian Abdi DRUG CUT HEADER DRUG CLASS TEST SYSTEM CUT-OFF CONCENTRATIONS ARE FOLLOWS: Normal [facility] Comment on above: Performed By: #### D RUGRPD #### [facility] [address] [place] [address] Dr. Brian Abdi mAMP Negative Normal NEGATIVE [facility] Comment on above: Performed By: #### D RUGRPD #### [facility] [address] [place] [address] Dr. Brian Abdi MTD Negative Normal NEGATIVE [facility] Comment on above: Performed By: #### D RUGRPD #### [facility] [address] [place] [address] Dr. Brian Abdi OPI Negative Normal NEGATIVE [facility] Comment on above: Performed By: #### D RUGRPD #### [facility] [address] [place] [address] Dr. Brian Abdi OXY Negative Normal NEGATIVE [facility] Comment on above: Performed By: #### D RUGRPD #### [facility] [address] [place] [address] Dr. Brian Abdi PCP Negative Normal NEGATIVE [facility] Comment on above: Performed By: #### D RUGRPD #### [facility] [address] [place] [address] Dr. Brian Abdi PPX Negative Normal NEGATIVE [facility] Comment on above: Performed By: #### D RUGRPD #### [facility] [address] [place] [address] Dr. Brian Abdi TCA Negative Normal NEGATIVE [facility] Comment on above: Performed By: #### D RUGRPD #### [facility] [address] [place] [address] Dr. Brian Abdi THC Negative Normal NEGATIVE [facility] Comment on above: Performed By: #### D RUGRPD #### [facility] [address] [place] [address] Dr. Brian Abdi TYPE AND SCREENon 07-28-2021 TYPE AND SCREEN Negative Normal [facility] Comment on above: Performed By: #### T NS #### [facility] [address] [place] [address] Dr. Brian Abdi UA (CLEAN/CATCH) RIGGER THIRD/MICRO I F IND.on 07-28-2021 Bilirubin Ql (U) Negative Normal NEGATIVE [facility] Comment on above: Performed By: #### H H #### [facility] [address] [place] [address] Sunitha Tram Clarity (U) CLEAR Normal CLEAR [facility] Comment on above: Performed By: #### H H #### [facility] [address] [place] [address] Sunitha Tram Color (U) LT. YELLOW Normal YELLOW [facility] Comment on above: Performed By: #### H H #### [facility] [address] [place] [address] Sunitha Tram Glucose Ql (U) Negative Normal NEGATIVE [facility] Comment on above: Performed By: #### H H #### [facility] [address] [place] [address] Sunitha Tram Hemoglobin Ql (U) Negative Normal NEGATIVE [facility] Comment on above: Performed By: #### H H #### [facility] [address] [place] [address] Sunitha Ugalde Ketones Ql (U) Negative Normal NEGATIVE [facility] Comment on above: Performed By: #### H H #### [facility] [address] [place] [address] Sunitha Tram LEUKOCYTES Negative Normal NEGATIVE [facility] Comment on above: Performed By: #### H H #### [facility] [address] [place] [address] Sunitha Tram Nitrite Ql (U) Negative Normal NEGATIVE [facility] Comment on above: Performed By: #### H H #### [facility] [address] [place] [address] Sunitha Ugalde pH (U) 6.0 [pH] Normal 5-9 [facility] Comment on above: Performed By: #### H H #### [facility] [address] [place] [address] Sunitha Ugalde SPEC GRAVITY <=1.005 Abnormal 1.005-<=1.025 [facility] Comment on above: Performed By: #### H H #### [facility] [address] [place] [address] Sunitha Ugalde UA PROTEIN Negative Normal NEGATIVE/ TRACE [facility] Comment on above: Performed By: #### H H #### [facility] [address] [place] [address] Sunitha Ugalde UR MICRO IND NOT INDICATED Normal [facility] Comment on above: Performed By: #### H H #### [facility] [address] [place] [address] Sunitha Ugalde Urobilinogen Qn (U) 0.2 {Fito'U}/dL Normal 0.2 - 1. 0 [facility] Comment on above: Performed By: #### H H #### [facility] [address] [place] [address] Sunitha Ugalde Covid-[facility] PCR ([facility]on 06-28 SARS-CoV-2 (COVID-19) RNA JEROD+probe Ql (Unsp spec) Not detected Normal NOT DETECTED [facility] Comment on above: Result Comment: This test is not yet approved or cleared by the [place] FDA. When there are no FDA-approved or cleared tests available, and other criteria are met, FDA can make tests available under an emergency access mechanism called an Emergency Use Authorization (EUA). The EUA for this test is supported by the [place] of Health and Human Service's (HHS's) declaration [...] SARS-CoV-2. Performed By: #### D RUGRPD #### [facility] [address] [place] [address] Dr. Brian Abdi GROUP B STREP CULTUREon [...] F Tetracycline <=0.25 S F Normal [facility] Comment on above: Performed By: #### G BSCX #### [facility] [address] [place] [address] Dr. Brian Abdi HEMOGRAM AND PLATELon 2020 Hematocrit (Bld) [Volume fraction] 33.7 % Critically low 36.0-48.0 [facility] Comment on above: Performed By: #### H H #### [facility] [address] [place] [address] Sunitha Ugalde Hemoglobin (Bld) [Mass/Vol] 10.8 g/dL Critically low 12.0-16.0 [facility] Comment on above: Performed By: #### H H #### [facility] [address] [place] [address] Sunitha Ugalde MCH (RBC) [Entitic mass] 28.3 pg Normal 26.7-34.0 [facility] Comment on above: Performed By: #### H H #### [facility] [address] [place] [address] Sunitha Ugalde MCHC (RBC) [Mass/Vol] 32.0 g/dL Normal 29.9-35.2 [facility] Comment on above: Performed By: #### H H #### [facility] [address] [place] [address] Sunitha Ugalde MCV (RBC) [Entitic vol] 88.2 fL Normal 81.0-99.0 [facility] Comment on above: Performed By: #### H H #### [facility] [address] [place] [address] Sunitha Ugalde PLT 252 103/ul Normal 150-450 [facility] Comment on above: Performed By: #### H H #### [facility] [address] [place] [address] Sunithajack Salesen RBC 3.82 106/ul Critically low 4.20-5.40 [facility] Comment on above: Performed By: #### H H #### [facility] [address] [place] [address] Sunithajack Salesen WBC 8.2 103/ul Normal 4.0-11.0 [facility] Comment on above: Performed By: #### H H #### [facility] [address] [place] [address] Sunitha Ugalde GLUCOSE - 1HRon 04-16-2021 Glucose [Mass/Vol] 129 mg/dL Critically high 74-106 T [facility] Comment on above: Performed By: #### D RUGRPD #### [facility] [address] [place], [place] [address] Dr. Brian Abdi HEMOGLOBINon 04-16-2021 Hemoglobin (Bld) [Mass/Vol] 10.8 g/dL Critically low 12.0-16.0 [facility] Comment on above: Performed By: #### H H #### [facility] [address] [id number] Sunitha Tram AFP MATERNAL FOR SPINA BIFID Aon 03-19-2021 AFP MoM 0.91 Normal [facility] Comment on above: Performed By: #### H H #### [facility] [address] [address] Sunitha Tram AFP Value 47.2 ng/mL Normal [facility] Comment on above: Performed By: #### H H #### [facility] [address] [id number] Sunitha Tram AFP, Serum for Spina Bifida Report Normal [facility] Comment on above: Performed By: #### H H #### [facility] [address] [id number] Sunitha Tram Comment Comment Normal [facility] Comment on above: Result Comment: Isa Robles, Ph.D., [facility] Director . References: Available Upon Request. . Multiples Of Median Cutoffs For AFP Elevations Arroyo 2.5 Black 2.8 IDD 2.0 Twins 4.5 Abbreviation Definitions IDD - Insulin Dep Diabetes OSBR - Open Spina Bifida Risk . For further inquiries contact [facility] at [phone]. Performed By: #### H H #### [facility] [address] [id number] Sunitha Salgado Age Collection Date 20.1 weeks Normal [facility] Comment on above: Performed By: #### H H #### [facility] [address] [id number] Sunitha Ugalde Gestat, Age Based on DEL Normal [facility] Comment on above: Result Comment: 03/2021 Recalculations are not recommended when gestational dating by LMP and ultrasound are within 10 days. Performed By: #### H H #### [facility] [address] [place] [address] Sunitha Ugalde Insulin Dep Diabetes No Normal [facility] Comment on above: Performed By: #### H H #### [facility] [address] [place] [address] Sunithajack Ugalde Interpretation Comment Normal [facility] Comment on above: Result Comment: Inte [...] Customer Services to discuss available options. The [employer] recommends amniocentesis be offered to women age 35 and older. Performed By: #### H H #### [facility] [address] [place] [address] Sunithajack Ugalde [age] Normal [facility] Comment on above: Performed By: #### H H #### [facility] [address] [place] [address] Sunithajack Ugalde Multiple Gestation No Normal [facility] Comment on above: Performed By: #### H H #### [facility] [address] [place] [address] Sunitha Ugalde [place] [address] [place] [id number] [facility] Comment on above: Performed By: #### H H #### [facility] [address] [place] [address] Sunithajack Ugalde PDF . Normal [facility] Comment on above: Performed By: #### H H #### [facility] [address] [place] [address] Sunithajack Ugalde Race Normal [facility] Comment on above: Performed By: #### H H #### [facility] [address] [place] [address] Sunitha Ugalde Test Results: Negative Normal [facility] Comment on above: Performed By: #### H H #### [facility] [address] [id number] Sunitha Ugalde US PREG ANATOMY SINGLEon US [...] TRENT LEE Date: 2021-03-17 11:10 Normal [facility] HEMOGLOBIN AND HEMATOCRITon 03-12-2021 Hematocrit (Bld) [Volume fraction] 34.4 % Critically low 36.0-48.0 [facility] Comment on above: Performed By: #### H H #### [facility] [address] [place], [place] [address] Suntiha Ugalde Hemoglobin (Bld) [Mass/Vol] 11.3 g/dL Critically low 12.0-16.0 [facility] Comment on above: Performed By: #### H H #### [facility] [address] [place] [id number] Sunithajack Ugalde CHLAMYDIA/GONOCOCCUS JEROD (SW AB/URINE/PAPon 02-28-2021 Chlamydia trachomatis, JEROD Negative Normal Negative [facility] Comment on above: Performed By: #### C T/NGNA #### [facility] [address] [id number] Sunithajack Salesen Neisseria gonorrhoeae, JEROD Negative Normal Negative [facility] Comment on above: Performed By: #### C T/NGNA #### [facility] [address] [place], [place] [address] Sunithajack Ugalde PAP ACOG PANEL 2: 21 to 29on 02-28-2021 . . Normal [facility] Comment on above: Performed By: #### H H #### [facility] [address] [place] [address] Sunitha Ugalde Age Gdln ACOG Testing 21-29 Normal [facility] Comment on above: Performed By: #### H H #### [facility] [address] [place] [address] Sunitha Ugalde DIAGNOSIS: Comment Normal [facility] Comment on above: Result Comment: NEGA TIVE FOR INTRAEPITHELIAL LESION OR MALIGNANCY. Performed By: #### H H #### [facility] [address] [place] [address] Sunithajack Ugalde Methodology: Comment Normal [facility] Comment on above: Result Comment: This liquid based ThinPrep(R) pap test was screened with the use of an image guided system. Performed By: #### H H #### [facility] [address] [place], [place] [address] Sunitha Salesen Note: Comment Normal [facility] Comment on above: Result Comment: The Pap smear is a screening test designed to aid in the detection of premalignant and malignant conditions of the uterine cervix. It is not a diagnostic procedure and should not be used as the sole means of detecting cervical cancer. Both false-positive and false-negative reports do occur. . Performed By: #### H H #### [facility] [address] [address] Sunitha Ugalde Performed by: Comment Normal [facility] [place] [facility] Comment on above: Result Comment: Aixa Betancur, Stitching Machine Feeder Or Offbearer (ASCP) Performed By: #### H H #### [facility] [address] [place] [address] Sunitha Ugalde Reflex Criteria: Comment Normal [facility] Comment on above: Result Comment: The HPV DNA reflex criteria were not met with this specimen result therefore, no HPV testing was performed. . Performed By: #### H H #### [facility] [address] [place] [address] Sunitha Ugalde Specimen adequacy: Comment Normal [facility] Comment on above: Result Comment: Sati sfactory for evaluation. No endocervical component is identified. Performed By: #### H H #### [facility] [address] [place] [address] Sunitha Ugalde VAGINITIS/VAGINOSIS DNA PROB Constantine 02-27-2021 Tricia species Negative Normal Negative [facility] Comment on above: Performed By: #### V AGINT #### [facility] [address] [place] [address] Sunitha Ugalde Gardnerella vaginalis Negative Normal Negative [facility] Comment on above: Performed By: #### V AGINT #### [facility] [address] [place] [address] Sunitha Ugalde Trichomonas vaginalis Negative Normal Negative [facility] Comment on above: Performed By: #### V AGINT #### [facility] [address] [place] [address] Sunitha Ugalde CULTURE URINEon 01-16-2021 CULTURE URINE [...] S F Tetracycline <=0.25 S F Normal [facility] Comment on above: Performed By: #### D RUGRPD #### [facility] [address] [place] [address] Dr. Brian Abdi HEP B SURFACE ANTIGEN SCREEN on 01-14-2021 HBsAg Screen Negative Normal Negative [facility] Comment on above: Performed By: #### H BSANS #### [facility] [address] [place] [address] Sunitha Ugalde HEPATITIS C VIRUS AB W/ REFL EX QUANTon 01-14-2021 HCV AB 0.1 s/co ratio Normal 0.0-0.9 [facility] Comment on above: Performed By: #### H H #### [facility] [address] [place] [address] Sunitha Ugalde Interpretation: Comment Normal [facility] Comment on above: Result Comment: Nega tive Not infected with HCV, unless recent infection is suspected or other evidence exists to indicate HCV infection. Performed By: #### H H #### [facility] [address] [place] [address] Sunitha Ugalde HIV 1 AND 2 WITH REFLEXon HIV Screen 4th Generation wRfx Non-Reactive Normal Non Reactive [facility] Comment on above: Performed By: #### D RUGRPD #### [facility] [address] [place] [address] Dr. Brian Abdi RPR QUANTon 01-14-2021 Rapid Plasma Reagin, Quant Non-Reactive Normal NonRea<1:1 [facility] Comment on above: Performed By: #### H H #### [facility] [address] [place] [address] Sunitha Ugalde RUBELLA AB IGGon 01-14-2021 Rubella Antibodies, IgG 1.27 index Normal Immune >0.99 [facility] Comment on above: Result Comment: Non- immune <0.90 Equivocal 0.90 - 0.99 Immune >0.99 Performed By: #### H H #### [facility] [address] [place] [address] Sunitha Ugalde CBC AUTO DIFFon 01-13-2021 BASO # 0.0 103/ul Normal 0.0-0.1 [facility] Comment on above: Performed By: #### C BC #### [facility] [address] [place], [place] [address] Sunitha Tram Basophils/100 WBC (Bld) 0.4 % Normal 0.2-2.0 [facility] Comment on above: Performed By: #### C BC #### [facility] [address] [place], [place] [address] Sunitha Tram EO # 0.1 103/ul Normal 0.0-0.7 [facility] Comment on above: Performed By: #### C BC #### [facility] [address] [place], [place] [address] Sunitha Tram Eosinophils/100 WBC (Bld) 0.7 % Critically low 0.9-7.0 [facility] Comment on above: Performed By: #### C BC #### [facility] [address] [place] [address] Sunitha Tram Erythrocyte distribution width (RBC) [Ratio] 13.7 % Normal 11.0-15.0 [facility] Comment on above: Performed By: #### C BC #### [facility] [address] [place], [place] [address] Sunitha Tram Hematocrit (Bld) [Volume fraction] 39.1 % Normal 36.0-48.0 [facility] Comment on above: Performed By: #### C BC #### [facility] [address] [place], [place] [address] Sunitha Tram Hemoglobin (Bld) [Mass/Vol] 12.7 g/dL Normal 12.0-16.0 [facility] Comment on above: Performed By: #### C BC #### [facility] [address] [place], [place] [address] Sunitha Tram IG # 0.02 10e3/ul Normal 0.00-0.03 [facility] Comment on above: Performed By: #### C BC #### [facility] [address] [place], [place] [address] Sunitha Tram IG % 0.3 % Normal 0.0-0.5 [facility] Comment on above: Performed By: #### C BC #### [facility] [address] [place], [place] [address] Sunithajack Ugalde LYMPH # 1.6 103/ul Normal 1.2-3.8 [facility] Comment on above: Performed By: #### C BC #### [facility] [address] [place], [place] [address] Sunithajack Ugalde Lymphocytes/100 WBC (Bld) 21.6 % Normal 20.5-60.0 [facility] Comment on above: Performed By: #### C BC #### [facility] [address] [place], [place] [address] Sunitha Ugalde MANUAL DIFF REQ NO Normal [facility] Comment on above: Performed By: #### C BC #### [facility] [address] [place] [address] Sunithajack Ugalde MCH (RBC) [Entitic mass] 27.6 pg Normal 26.7-34.0 [facility] Comment on above: Performed By: #### C BC #### [facility] [address] [place], [place] [address] Sunithajack Ugalde MCHC (RBC) [Mass/Vol] 32.5 g/dL Normal 29.9-35.2 [facility] Comment on above: Performed By: #### C BC #### [facility] [address] [place], [place] [address] Sunithajack Ugalde MCV (RBC) [Entitic vol] 85.0 fL Normal 81.0-99.0 [facility] Comment on above: Performed By: #### C BC #### [facility] [address] [place], [place] [address] Sunitha Tram MONO # 0.4 103/ul Normal 0.3-0.8 [facility] Comment on above: Performed By: #### C BC #### [facility] [address] [place], [place] [address] Sunithajack Ugalde Monocytes/100 WBC (Bld) 5.4 % Normal 1.7-12.0 [facility] Comment on above: Performed By: #### C BC #### [facility] [address] [place], [place] [address] Sunithajack Salesen NEUT # 5.4 103/ul Normal 1.4-6.5 [facility] Comment on above: Performed By: #### C BC #### [facility] [address] [place], [place] [address] Sunitha Tram Neutrophils/100 WBC (Bld) 71.6 % Normal 43.0-75.0 [facility] Comment on above: Performed By: #### C BC #### [facility] [address] [id number] Sunithajack Ugalde Platelet mean volume (Bld) [Entitic vol] 9.3 fL Critically low 9.5-13.5 [facility] Comment on above: Performed By: #### C BC #### [facility] [address] [place], [place] [address] Sunitha Tram PLT 296 103/ul Normal 150-450 [facility] Comment on above: Performed By: #### C BC #### [facility] [address] [place], [place] [address] Sunitha Tram RBC 4.60 106/ul Normal 4.20-5.40 [facility] Comment on above: Performed By: #### C BC #### [facility] [address] [place], [place] [address] Sunitha Tram WBC 7.5 103/ul Normal 4.0-11.0 [facility] Comment on above: Performed By: #### C BC #### [facility] [address] [place], [place] [address] Sunitha Tram GLYCOHEMOGLOBIN A1Con 2020 ADA RECOMMENDATION ADA THERAPEUTIC TARGET 6.0 - 7.0 ACTION SUGGESTED > 7.0 Normal [facility] Comment on above: Performed By: #### A 1C #### [facility] [address] [id number] Sunitha Ugalde Glucose [Mass/Vol] 111 mg/dL Normal [facility] Comment on above: Performed By: #### A 1C #### [facility] [address] [place], [place] [address] Sunitha Ugalde HbA1c (Bld) [Mass fraction] 5.5 % Normal <=6.0 [facility] Comment on above: Performed By: #### A 1C #### [facility] [address] [place], [place] [address] Sunitha Ugalde BARBI BOX TEST PT SEND OUTo n 01-13-2021 SENT TO REF LAB 01/13/21 Normal [facility] Comment on above: Performed By: #### D RUGRPD #### [facility] [address] [place], [place] [address] Dr. Brian Abdi TYPE AND SCREENon 01-13-2021 TYPE AND SCREEN Negative Normal [facility] Comment on above: Performed By: #### D RUGRPD #### [facility] [address] [place] [address] [address] Brian Abdi Vital Signs Date Time Vital Sign Value Performing Clinician Facility 05-14-2025 08:32-0400 Body mass index (BMI) [Ratio] 42.11 kg/m2 [employer] Work Phone: [facility] 05-14-2025 08:32-0400 Body weight 104.44 kg [employer] Work Phone: [facility] 05-14-2025 08:32-0400 Diastolic blood pressure 72 mm[Hg] Andres Dante [employer] Work Phone: [facility] 05-14-2025 08:32-0400 Systolic blood pressure 128 mm[Hg] Andres Dante DO Work Phone: [facility] 05-08-2025 12:00-0400 Body height 157.5 cm Sera RIVAS Work Phone: [facility] 05-08-2025 11:55-0400 Body mass index (BMI) [Ratio] 41.88 kg/m2 Sera RIVAS Work Phone: [facility] 05-08-2025 11:55-0400 Body weight 103.87 kg Sera RIVAS Work Phone: [facility] 05-08-2025 11:55-0400 Diastolic blood pressure 90 mm[Hg] Sera Mckeon PA Work Phone: [facility] 05-08-2025 11:55-0400 Systolic blood pressure 130 mm[Hg] Sera Mckeon PA Work Phone: [facility] 05-01-2025 09:17-0400 Body weight 103.15 kg Andres Dante DO Work Phone: [facility] 05-01-2025 09:17-0400 Diastolic blood pressure 82 mm[Hg] Andres Dante DO Work Phone: [facility] 05-01-2025 09:17-0400 Systolic blood pressure 130 mm[Hg] Andres Dante DO Work Phone: [facility] 04-19-2025 08:43-0400 Body weight 102.06 kg Sera RIVAS Work Phone: [facility] 04-19-2025 08:43-0400 Diastolic blood pressure 68 mm[Hg] Sera Mckeon PA Work Phone: [facility] 04-19-2025 08:43-0400 Systolic blood pressure 120 mm[Hg] Sera Mckeon PA Work Phone: [facility] 03-21-2025 09:04-0400 Body weight 99.79 kg Kamila Crooks [employer] Work Phone: [facility] 03-21-2025 09:04-0400 Diastolic blood pressure 60 mm[Hg] Kamila Valeriy [employer] SCI[employer] Work Phone: [facility] 03-21-2025 09:04-0400 Systolic blood pressure 120 mm[Hg] Kamila Valeriy [employer]PUTER SCIENT[employer] Work Phone: [facility] 03-07-2025 15:18-0400 Body weight 99.97 kg Andres Dante DO Work Phone: [facility] 03-07-2025 15:18-0400 Diastolic blood pressure 70 mm[Hg] Andres Dante DO Work Phone: [facility] 03-07-2025 15:18-0400 Systolic blood pressure 120 mm[Hg] Andres Dante DO Work Phone: [facility] 02-21-2025 15:04-0400 Body weight 99.22 kg Andres Dante DO Work Phone: [facility] 02-21-2025 15:04-0400 Diastolic blood pressure 72 mm[Hg] Andres Dante DO Work Phone: [facility] 02-21-2025 15:04-0400 Systolic blood pressure 106 mm[Hg] Andres Dante DO Work Phone: [facility] 01-23-2025 15:00-0400 Body weight 96.98 kg Andres Dante DO Work Phone: [facility] 01-23-2025 15:00-0400 Diastolic blood pressure 70 mm[Hg] Andres Dante DO Work Phone: [facility] 01-23-2025 15:00-0400 Systolic blood pressure 120 mm[Hg] Andres Dante DO Work Phone: [facility] 12-26-2024 14:32-0400 Body weight 95.44 kg Andres Dante DO Work Phone: [facility] 12-26-2024 14:32-0400 Diastolic blood pressure 70 mm[Hg] Andres Dante DO Work Phone: [facility] 12-26-2024 14:32-0400 Systolic blood pressure 108 mm[Hg] Andres Dante DO Work Phone: [facility] 11-27-2024 14:37-0500 Body weight 96.53 kg Andres Dante DO Work Phone: [facility] 11-27-2024 14:37-0500 Diastolic blood pressure 70 mm[Hg] Andres Dante DO Work Phone: [facility] 11-27-2024 14:37-0500 Systolic blood pressure 122 mm[Hg] Andres Dante DO Work Phone: [facility] 10-26-2024 14:54-0500 Body weight 96.25 kg [facility] 03-19-2021 02:06-0400 Body weight 83.[address] ANDRES HOWELL [facility] Comment on above: Performed By: #### HH #### [facility] [address] [place], [place] [address] Sunitha Ugalde Encounters Encounter Date Encounter Type [...] minutes Andres Dante DO Work Phone: [facility] Comment on above: Third trimester preg ulises ([facility]); 37 weeks gestation of ([facility]) Start: 05-14-2025 End: 05-14-2025 ambulatory ANDRES DANTE [...] flowsheet Sera Mckeon ROB Work Phone: [facility] Start: 05-08-2025 End: 05-08-2025 Bamboo flowsheet Sera Mckeon ROB Work Phone: [facility] Start: 05-08-2025 End: 05-08-2025 ambulatory SERA MCKEON Not Available Start: 05-08-2025 End: 05-08-2025 Office outpatient visit 15 minutes Sera Mike ROB Work Phone: [facility] Comment on above: Third trimester preg ulises ([facility]); 37 weeks gestation of ([facility]); induced hypertension, antepartum ([facility]) Start: 05-01-2025 End: 05-01-2025 Bamboo flowsheet Andres Dante DO Work Phone: [facility] Start: 05-01-2025 End: 05-01-2025 Bamboo flowsheet Andres Dante DO Work Phone: [facility] Start: 05-01-2025 End: 05-01-2025 flow sheet Andres Dante DO Work Phone: [facility] Comment on above: 36 weeks gestation o f ([facility]); Third trimester ([facility]); H/O section Start: 05-01-2025 End: 05-01-2025 ambulatory ANDRES DANTE Not Available Start: 04-19-2025 End: 04-19-2025 Office outpatient visit 15 minutes Sera RIVAS Work Phone: [facility] Comment on above: 34 weeks gestation o f ([facility]); Third trimester ([facility]) Start: 04-19-2025 End: 04-19-2025 ambulatory SERA MCKEON Not Available Start: 03-21-2025 End: 03-21-2025 Bamboo flowsheet Kamila Valeriy COMPUTER SCIENTIST Work Phone: [facility] Start: 03-21-2025 End: 03-21-2025 Bamboo flowsheet Kamila Valeriy COMPUTER SCIENTIST Work Phone: [facility] Start: 03-21-2025 End: 03-21-2025 flow sheet Kamila Valeriy COMPUTER SCIENTIST Work Phone: [facility] Comment on above: Size of fetus incons istent with dates in third trimester ([facility]) (Primary Dx); Third trimester ([facility]); 30 weeks gestation of ([facility]) Start: 03-21-2025 End: 03-21-2025 ambulatory KAMILA [...] encounter procedure Andres Dante DO Work Phone: [facility] Start: 12-26-2024 End: 12-26-2024 flow sheet [...] Start: 12-20-2024 End: 12-20-2024 Clinisync Result Encounter Anrdes Dante DO Work Phone: [facility] External Department Unsolicited Start: 12-20-2024 End: 12-20-2024 Clinisync Result Encounter Andres Dante DO Work Phone: [facility] External Department Unsolicited Start: 11-27-2024 End: 11-27-2024 flow sheet Andres Dante DO Work Phone: [facility] Comment on above: 13 weeks gestation o f ; Second trimester Start: 11-27-2024 End: 11-27-2024 ambulatory ANDRES DANTE Not Available Start: 11-27-2024 End: 11-27-2024 Bamboo flowsheet Andres Dante DO Work Phone: [facility] Start: 11-27-2024 End: 11-27-2024 [...] for preprocedural laboratory examination DR ANDRES HOWELL [facility] Start: 07-22-2021 End: 07-22-[address] [...] Routine [facility] [address] [place] [address] Andres Howell DO [address] [place] [address] [facility] RUTLEDGE Start: 05-17-2025 End: 05-17-2025 Professional / ancillary services management [facility] Start: 05-14-2025 End: 05-14-2025 Patient encounter procedure A[facility] RUTLEDGE Comment on above: Arrived Start: 05-08-2025 End: 05-08-2026 Alanine aminotransferase [Enzymatic activity/volume] in Serum or Plasma ALT Lab Routine induced hypertension, antepartum ([facility]) Expected: 05/08/2025 (Approximate), Expires: 05/08/2026 [facility] Comment on above: Expected: 05/08/2025 (Approximate), Expires: 05/08/2026 Start: 05-08-2025 End: 05-08-2026 Aspartate aminotransferase [Enzymatic activity/volume] in Serum or Plasma AST Lab Routine induced hypertension, antepartum ([facility]) Expected: 05/08/2025 (Approximate), Expires: 05/08/2026 [facility] Comment on above: Expected: 05/08/2025 (Approximate), Expires: 05/08/2026 Start: 05-08-2025 End: 05-08-2026 CBC W Auto Differential panel - Blood CBC and differential Lab Routine induced hypertension, antepartum ([facility]) Expected: 05/08/2025 (Approximate), Expires: 05/08/2026 [facility] Comment on above: Expected: 05/08/2025 (Approximate), Expires: 05/08/2026 Start: 05-08-2025 End: 05-08-2026 Creatinine [Mass/volume] in Serum or Plasma Creatinine Lab Routine induced hypertension, antepartum ([facility]) Expected: 05/08/2025 (Approximate), Expires: 05/08/2026 [facility] Work Phone: Comment on above: Expected: 05/08/2025 (Approximate), Expires: 05/08/2026 Start: 05-08-2025 End: 05-08-2026 Lactate dehydrogenase [Enzymatic activity/volume] in Serum or Plasma by Lactate to pyruvate reaction Lactate dehydrogenase Lab Routine induced hypertension, antepartum ([facility]) Expected: 05/08/2025, Expires: 05/08/2026 [facility] Comment on above: Expected: 05/08/2025 , Expires: 05/08/2026 Start: 05-08-2025 End: 05-08-2026 Protein, urine, 24 hour Protein, urine, 24 hour Lab Routine induced hypertension, antepartum ([facility]) Expected: 05/08/2025 (Approximate), Expires: 05/08/2026 [facility] Comment on above: Expected: 05/08/2025 (Approximate), Expires: 05/08/2026 Start: 05-08-2025 End: 05-08-2026 Pt and ptt Pt and ptt Lab Routine induced hypertension, antepartum ([facility]) Expected: 05/08/2025, Expires: 05/08/2026 [facility] Comment on above: Expected: 05/08/2025 , Expires: 05/08/2026 Start: 05-08-2025 End: 05-08-2026 Urate [Mass/volume] in Serum or Plasma Uric acid Lab Routine induced hypertension, antepartum ([facility]) Expected: 05/08/2025 (Approximate), Expires: 05/08/2026 [facility] Comment on above: Expected: 05/08/2025 (Approximate), Expires: 05/08/2026 Start: 05-08-2025 End: 05-08-2026 Urea nitrogen [Mass/volume] in Serum or Plasma BUN Lab Routine induced hypertension, antepartum ([facility]) Expected: 05/08/2025, Expires: 05/08/2026 [facility] Comment on above: Expected: 05/08/2025 , Expires: 05/08/2026 Start: 05-08-2025 End: 11-08-2025 US biophysical profile w non stress test US biophysical profile w non stress test Imaging Routine induced hypertension, antepartum ([facility]) Expected: 05/08/2025 (Approximate), Expires: 11/08/2025 [facility] Comment on above: Expected: 05/08/2025 (Approximate), Expires: 11/08/2025 Start: 05-08-2025 End: 05-08-2025 Patient encounter procedure 05/08/2025 11:20 AM EDT Routine [facility] [address] [id number] Sera Mckeon PA [address] [place] [address] [facility] Start: 05-01-2025 End: 05-01-2026 CULTURE, GROUP B STREP WITH SUSCEPTIBLITY CULTURE, GROUP B STREP WITH SUSCEPTIBLITY Lab Routine Third trimester ([facility]) Expected: 05/01/2025, Expires: 05/01/2026 [facility] Work Phone: Comment on above: Expected: 05/01/2025 , Expires: 05/01/2026 Start: 05-01-2025 End: 05-01-2025 Patient encounter procedure [facility] Comment on above: Arrived Start: 03-21-2025 End: 07-21-2025 US for US OB follow up transabdominal approach Imaging Routine Size of fetus inconsistent with dates in third trimester ([facility]) Expected: 03/21/2025, Expires: 07/21/2025 [facility] [...] EDT Routine [facility] [address] [facility] [id number] Andres Howell, DO [address] [place] [address] [facility] Start: 01-23-2025 End: 01-23-2026 CBC panel - Blood by Automated count CBC Lab Routine Diabetes mellitus screening Expected: 01/23/2025 (Approximate), Expires: 01/23/2026 [facility] Work Phone: Comment on above: Expected: 01/23/2025 (Approximate), Expires: 01/23/2026 Start: 01-10-2025 End: 01-10-2025 Professional / ancillary services management 01/10/2025 2:30 PM EDT Ancillary Procedure [facility] [address] [place] [id number] [facility] Start: 12-26-2024 End: 02-25-2025 [...] gestational age Expected: 10/26/2024 (Approximate), Expires: 10/26/2025 [facility] Comment on above: Expected: 10/26/2024 (Approximate), Expires: 10/26/2025 Start: 10-26-2024 End: 10-26-2025 Blood type and Indirect antibody screen panel - Blood Type and screen Lab Routine Missed menses , unspecified gestational age Expected: 10/26/2024 (Approximate), Expires: 10/26/2025 [facility] Work Phone: Comment on above: Expected: 10/26/2024 (Approximate), Expires: 10/26/2025 Start: 10-26-2024 End: 10-26-2025 Drugs of abuse panel - Urine by Screen method Rapid drug screen, urine Lab Routine , unspecified gestational age Encounter for supervision of normal first in first trimester Expected: 10/26/2024 (Approximate), Expires: 10/26/2025 [facility] Comment on above: Expected: 10/26/2024 (Approximate), Expires: 10/26/2025 Bacteria identified in Urine by Culture Urine culture Microbiology Routine Missed menses Ordered: 10/26/2024 [facility] Comment on above: Ordered: 10/26/2024 CBC W Auto Different ial panel - Blood CBC and differential Lab Routine Missed menses , unspecified gestational age Ordered: 10/26/2024 [facility] Comment on above: Ordered: 10/26/2024 CHLAMYDIA TRACHOMATI S (GENITO/STI) CHLAMYDIA TRACHOMATIS (GENITO/STI) Lab Routine Vaginal discharge STD exposure Ordered: 12/26/2024 [facility] Comment on above: Ordered: 12/26/2024 Hemoglobin A1c/Hemoglobin.total in Blood Hemoglobin A1c Lab Routine Missed menses , unspecified gestational age Ordered: 10/26/2024 [facility] Comment on above: Ordered: 10/26/2024 Hepatitis B virus gardiner rface Ag [Presence] in Serum or Plasma by Immunoassay Hepatitis B surface antigen Lab Routine Missed menses , unspecified gestational age Ordered: 10/26/2024 [facility] Comment on above: Ordered: 10/26/2024 Hepatitis C virus Ab [Presence] in Serum or Plasma by Immunoassay Hepatitis C antibody Lab Routine Missed menses , unspecified gestational age Ordered: 10/26/2024 [facility] Comment on above: Ordered: 10/26/2024 HIV-1/HIV-2 antigen/antibody combination immunoassay HIV-1 and HIV-2 antibodies Lab Routine Missed menses , unspecified gestational age Ordered: 10/26/2024 [facility] Comment on above: Ordered: 10/26/2024 Neisseria gonorrhoea e DNA [Presence] in Unspecified specimen by JEROD with probe detection Neisseria gonorrhea DNA probe, direct Lab Routine Vaginal discharge STD exposure Ordered: 12/26/2024 [facility] Comment on above: Ordered: 12/26/2024 Reagin Ab [Presence] in Serum by RPR RPR Lab Routine Missed menses , unspecified gestational age Ordered: 10/26/2024 [facility] Comment on above: Ordered: 10/26/2024 Rubella antibody, IgG Rubella an tibody, IgG Lab Routine Missed menses , unspecified gestational age Ordered: 10/26/2024 [facility] Comment on above: Ordered: 10/26/2024 SURESWAB(R) ADVANCED VAGINITIS PLUS, TMA SURESWAB(R) ADVANCED VAGINITIS PLUS, TMA Pathology and Cytology Routine Vaginal discharge STD exposure Ordered: 12/26/2024 [facility] Work Phone: Comment on above: Ordered: 12/26/2024 Thyrotropin [Units/v olume] in Serum or Plasma TSH Lab Routine Thyroid disorder screening Ordered: 12/26/2024 [facility] Comment on above: Ordered: 12/26/2024 Thyroxine (T4) free [Mass/volume] in Serum or Plasma T4, free Lab Routine Thyroid disorder screening Ordered: 12/26/2024 [facility] Comment on above: Ordered: 12/26/2024 Payers Date Payer Category Payer Medicaid MEDICAID [facility] [id number] 2025 Medicaid [id number] 2024 Private Health Insurance [facility] [id number] 1998 Unknown [id number] 2.16.840.1.038728.3.579.2. 593 1998 Unknown [id number] 2.16.840.1.627223.3.579.2. 593 1998 Unknown [id number] 2.16.840.1.343135.3.579.2. 593 1998 Unknown [id number] 2.16.840.1.735480.3.579.2. 593 1998 Unknown [id number] 2.16.840.1.864846.3.579.2. 593 1998 Unknown [id number] 2.16.840.1.974864.3.579.2. 593 1998 Unknown [id number] 2.16.840.1.836909.3.579.2. 593 1998 Unknown [id number] 2.16.840.1.407385.3.579.2. 593 1998 Unknown [id number] 2.16.840.1.623811.3.579.2. 593 1998 Unknown [id number] 2.16.840.1.743354.3.579.2. 593 1998 Unknown [id number] 2.16.840.1.643070.3.579.2. 593 1998 Unknown [id number] 2.16.840.1.691433.3.579.2. 593 1998 Unknown [id number] 2.16.840.1.385261.3.579.2. 593 1998 Unknown [id number] 2.16.840.1.067587.3.579.2. 1259 1998 Unknown [id number] 2.16.840.1.595834.3.579.2. 125 1998 Unknown [id number] 2.16.840.1.319113.3.579.2. 125 1998 Unknown [id number] 2.16.840.1.288359.3.579.2. 125 1998 Unknown [id number] 2.16.840.1.718082.3.579.2. 125 1998 Unknown [id number] 2.16.840.1.672157.3.579.2. 1258 1998 Unknown [id number] 2.16.840.1.304243.3.579.2. 125 1998 Unknown [id number] 2.16.840.1.309062.3.579.2. 125 1998 Unknown [id number] 2.16.840.1.743963.3.579.2. 125 1998 Unknown [id number] 2.16.840.1.787759.3.579.2. 1258 1998 Unknown [id number] 2.16.840.1.729474.3.579.2. 125 1998 Unknown [id number] 2.16.840.1.914867.3.579.2. 1259 1998 Unknown [id number] 2.16.840.1.830761.3.579.2. 1259 1998 Unknown [id number] 2.16.840.1.268723.3.579.2. 1259 1959 Private Health Insurance [id number] 1959 Self-pay [id number] Unknown [id number] 2.16.840.1.727186.3.579.2. 593 Social History Date Type Detail Facility Tobacco smoking stat [facility] Tobacco smoking consumption unknown [facility] Start: 09-05-2024 [facility] Start: 1998 Sex assigned at Not on file [facility] Gender identity Not on file [facility] are Medical Equipment Procedure Code Equipment Code Equipment Origin al Text Equipment Identifier Dates 1 strip by In Vi tro route Daily Use in the morning prior to breakfast, 1 hour after each meal for a total of 4times daily. [id number] Start: 12-26-2024 End: 01-25-2025 1 each by In Vit ro route Daily Use to check FSBS four times daily [id number] Start: 12-26-2024 End: 01-25-2025 Clinical Notes 07-28-2021 to 05-14-2025 Katie Flowers HR PAYROLL COORDINATOR - 05/14/2025 8:30 AM ROB العلي - [...] nursing note reviewed. Exam conducted with a commercial accountant present. Vitals: Estimated body mass index is 42.11 kg/m as calculated from the following: Height as of 25: 5' 2 . Weight as of this encounter: 230 lb 4 oz. BP: 128/72 Patient's last menstrual period was 08/17/2024. ASSESSMENT & PLAN ICD-10-CM 1. Third trimester ([facility]) Z34.93 POCT urinalysis dipstick manually resulted 2. 37 weeks gestation of ([facility]) Z3A.37 Patient presents today for a [...] Andres Howell DO documented in this encounter [facility] 05-08-2025 History of Presen t illness Narrative Reason for Appointment: Patient ID: Rosanne Belcher is a 24 y.o. female who presents for Routine Visit Patient presents today for Return OB appointment. MEDICATIONS Current Outpatient Medications Medication Instructions Alcohol Swabs (Alcohol Prep Pad) 70 % pads 1 Pad, Topical, Daily, Use four times daily to check FSBS. Blood Glucose Monitoring Suppl (D-Mc4 Glucometer) w/Device kit 1 kit, Does not [...] nursing note reviewed. Exam conducted with a commercial accountant present. Vitals: Estimated body mass index is 41.88 kg/m as calculated from the following: Height as of this encounter: 5' 2 . Weight as of this encounter: 229 lb. BP: 130/90 Patient's last menstrual period was 08/17/2024. ASSESSMENT & PLAN ICD-10-CM 1. Third trimester ([facility]) Z34.93 POCT urinalysis dipstick manually resulted 2. 37 weeks gestation of ([facility]) Z3A.37 Return OB: Patient presents today [...] of: ROB Rosenbaum documented in this encounter [facility] 05-01-2025 History of Presen t [...] nursing note reviewed. Exam conducted with a commercial accountant present. Vitals: There is no height or weight on file to calculate BMI. BP: 130/82 Patient's last menstrual period was 08/17/2024. ASSESSMENT & PLAN ICD-10-CM 1. 36 weeks gestation of ([facility]) Z3A.36 POCT urinalysis dipstick manually resulted 2. Third trimester ([facility]) Z34.93 POCT urinalysis dipstick manually resulted [...] Andres Howell DO documented in this encounter [facility] 04-19-2025 History of Presen t [...] PLAN ICD-10-CM 1. 34 weeks gestation of ([facility]) Z3A.34 POCT urinalysis dipstick manually resulted 2. Third trimester ([facility]) Z34.93 POCT urinalysis dipstick manually resulted [...] of: ROB Rosenbaum documented in this encounter [facility] 03-21-2025 History of Presen t [...] nursing note reviewed. Exam conducted with a commercial accountant present. Vitals: There is no height or weight on file to calculate BMI. BP: Patient's last menstrual period was 08/17/2024. ASSESSMENT & PLAN ICD-10-CM 1. Third trimester ([facility]) Z34.93 POCT urinalysis dipstick manually resulted 2. 30 weeks gestation of ([facility]) Z3A.30 Return OB: Patient presents today [...] Kamila Crooks NP documented in this encounter [facility] 03-07-2025 History of Presen t illness Narrative Reason for Appointment: Patient ID: Rosanne Belcher is a 24 y.o. female who presents for Routine Visit Patient presents today for Return OB appointment. MEDICATIONS Current Outpatient Medications Medication Instructions Alcohol Swabs (Alcohol Prep Pad) 70 % pads 1 Pad, Topical, Daily, Use four times daily to check FSBS. Blood Glucose Monitoring Suppl ([employer]-Mc4 Glucometer) w/Device kit 1 kit, Does not [...] nursing note reviewed. Exam conducted with a commercial accountant present. Vitals: There is no height or [...] Andres Howell DO documented in this encounter [facility] 02-21-2025 History of Presen t [...] nursing note reviewed. Exam conducted with a commercial accountant present. Vitals: There is no height or [...] Sera Mckeon PA-C documented in this encounter [facility] 01-23-2025 History of Presen t [...] Felisha Espinoza LPN documented in this encounter [facility] 12-26-2024 History of Presen t [...] by Tram Traore LPN on behalf of: Anders Howell DO documented in this encounter [facility] 11-27-2024 History of Presen t [...] nursing note reviewed. Exam conducted with a commercial accountant present. Vitals: There is no height or [...] Andres Howell DO documented in this encounter [facility] 10-26-2024 History of Presen t [...] or undercooked meat, and stay away from [facility]. Patient has also been advised to not [...] Mervat Carrera MA documented in this encounter [facility] 07-28-2021 Note DISCHARGE SUMMARY Discharge [...] Tylenol, any abdominal pain unrelieved with narcotics. [facility] Signed and Approved by: DR ANDRES HOWELL . 08/05/2021 16:10:00 [facility] 07-28-2021 Note OPERATIVE NOTE OPERATION DATE: 07-28-21 ANESTHETIC:Spinal with Duramorph. LAW ENFORCEMENT DIRECTOR:ADRIANA Rodriguez PREOPERATIVE DIAGNOSIS: 1. Intrauterine at 39 [...] to the Recovery Room in stable condition. [facility] Signed and Approved by: DR ANDRES HOWELL . 07/28/2021 18:54:00 [facility] Evaluation note Diagnosis Missed menses , unspecified gestational age Encounter for supervision of normal first in first trimester documented in this encounter [facility]* Diagnosis 13 weeks gestation of Second trimester state, incidental documented in this encounter [facility]* Diagnosis Second trimester state, [...] content) DATE CREATED AUTHOR 01/01/2022 [facility] DATE CREATED AUTHOR AUTHOR'S ORGANIZ ATION 05/14/2025 [facility] Special[facility] EPIC Reason for Visit (unrecogniz ed section and content) Reason Comments Amenorrhea Reason Comments Routine Visit Care Teams (unrecognized sec tion and content) Pattern Cleaner Relationship Specialty Start Date End Date Shilpi Blanton MD [address] [place] [address] PCP - General Family Medicine 10/26/24 Pattern Cleaner Relationship Specialty Start Date End Date Shilpi Blanton MD [address] [place] [address] PCP - General Family Medicine 10/26/24 Pattern Cleaner Relationship Specialty Start Date End Date Shilpi Blanton MD [address] [place] [address] PCP - General Family Medicine 10/26/24 Pattern Cleaner Relationship Specialty Start Date End Date Shilpi Blanton MD [address] [place] [phone] PCP - General Family Medicine 10/26/24 Pattern Cleaner Relationship Specialty Start Date End Date Shilpi Blanton MD [address] [place] [place] [address] PCP - General Family Medicine 10/26/24 Pattern Cleaner Relationship Specialty Start Date End Date Shilpi Blanton MD PCP - General Family Medicine 10/26/24 Pattern Cleaner Relationship Specialty Start Date End Date Shilpi Blanton MD PCP - General Family Medicine 10/26/24 Pattern Cleaner Relationship Specialty Start Date End Date Shilpi Blanton MD PCP - General Family Medicine 10/26/24 Pattern Cleaner Relationship Specialty Start Date End Date Shilpi Blanton MD PCP - General Family Medicine 10/26/24 Pattern Cleaner Relationship Specialty Start Date End Date Shilpi Blanton MD [address] [place] [phone] PCP - General Family Medicine 10/26/24 Pattern Cleaner Relationship Specialty Start Date End Date Shilpi Blanton MD [address] [facility] [place] [phone] PCP - General Family Medicine 10/26/24 Pattern Cleaner Relationship Specialty Start Date End Date Shilpi Blanton MD [address] [facility] [place] [phone] PCP - General Family Medicine 10/26/24 Pattern Cleaner Relationship Specialty Start Date End Date Shilpi Blanton MD [address] [facility] [place] [address] PCP - General Family Medicine 10/26/24 Pattern Cleaner Relationship Specialty Start Date End Date Shilpi Blanton MD [address] [facility] [place] [address] PCP - General Family Medicine 10/26/24 Pattern Cleaner Relationship Specialty Start Date End Date Shilpi Blanton MD [address] [facility] [place] [address] PCP - General Family Medicine 10/26/24 Pattern Cleaner Relationship Specialty Start Date End Date Shilpi Blanton MD [address] [facility] [place] [address] PCP - General Family Medicine 10/26/24 [...] BE BASED ON THE PRIMARY CLINICAL RECORDS. [facility] [employer] [facility]. provides no warranty or guarantee of the accuracy or completeness of information in this document.
[2025-05-22 06:00] LABS: Glucose Urine UA NEGATIVE (NEGATIVE)
[2025-05-22 06:00] LABS: Hematocrit 32.4 % (36.0-48.0); Hemoglobin 10.2 g/dL (12.0-16.0); Immature Granulocytes Abs Auto 0.02 10^3/uL (0.00-0.03); Immature Granulocytes Pct Auto 0.3 % (0.0-0.5); Lymphocytes Absolute Auto 1.9 10^3/uL (1.2-3.8); Mean Corpuscular HGB Conc 31.5 g/dL (29.9-35.2); Mean Corpuscular Hemoglobin 23.6 pg (26.7-34.0); Mean Corpuscular Volume 75.0 fL (81.0-99.0); Platelet Count 286 10^3/uL (150-450); Red Blood Count 4.32 10^6/uL (4.20-5.40); White Blood Count 6.6 10^3/uL (4.0-11.0)
[2025-05-22 06:15] LABS: Cannabinoid Screen Urine NEGATIVE (NEGATIVE); Cast Seen? NONE SEEN #/LPF (NONE SEEN); Crystals Seen? None Seen #/HPF (None Seen); Methamphetamines Screen Urine NEGATIVE (NEGATIVE); Tricyclic Antidepressant Urine NEGATIVE (NEGATIVE); Urine Culture Indicated NO
[2025-05-22] MEDS: CITRIC ACID/SODIUM CITRATE 30 ML SOLUTION ORACIT SHOHL'S SOLN PO (06:46)
[2025-05-22] MEDS: FAMOTIDINE/PF 20 MG/2 ML VIAL IV (06:46)
[2025-05-22] MEDS: METOCLOPRAMIDE HCL 10 MG/2 ML VIAL IVP (06:49)
--- NOTE | 2025-05-22 07:24 | W.PC.ACHO ---
Registration Status: ADM IN Primary Language: New Zealander Preferred Language: New Zealander Report given at 0700. Care relinquished to Nik HELTON. Active Medications Generic Name Dose Route Start Last Admin Trade Name Adilson PRN Reason Stop Dose Admin Lactated Ringer's 1,000 mls @ 1,000 mls/hr 05/22/25 05:30 05/22/25 06:50 Lactated Ringers IV 05/22/25 07:29 1,000 mls/hr .Q1H FLORENTIN Administration Oxytocin/Sodium Chloride 20 units in 1,000 mls @ 125 mls/hr 05/22/25 05:29 Pitocin 20 Unit/1,000 Ml-Ns IV Q8H PRN POST DELIVERY IV Insertion/Site Date of IV Line Insertion [ 05/22/25 Short PIV (<1.75 in) 20g left Forearm] IV Insertion Time [Short PIV ( 05:48 <1.75 in) 20g left Forearm] Neurology Patient orientation (short person,place,time,situation list)
[2025-05-22] MEDS: CLINDAMYCIN PHOSPHATE/D5W 900 MG/50 ML PREMIX 100 MG IV ×2 (07:37→13:58)
--- NOTE | 2025-05-22 08:38 | P.ON_ITS ---
Brief Operative Note Date of procedure: 05/22/25 Pre-op diagnosis general: iup at 39wks, previous c/s Post-op diagnosis: same as pre-op Procedure: NAME OF PROCEDURE: [ section ] PROCEDURE: Patient was taken back to the Operating Room where she was given a spinal anesthesia with Duramorph without difficulty. She was prepped and draped in the normal sterile fashion. A Pfannenstiel skin incision was then made 2 cm above the symphysis pubis and carried down to underlying rectus fascia using a Bovie. The fascia was incised in the midline and extended laterally using Morales scissors. Two Steven clamps were placed on the superior aspect of the fascia and dissected off the underlying rectus muscles. The same was performed on the inferior aspect as well. The muscles were then in the midline. Peritoneum was identified and entered bluntly. The peritoneum was then extended superiorly and inferiorly with good visualization of the bladder. The bladder blade was inserted. A low transverse incision was made on the patient's uterus and extended laterally digitally. The was then delivered atraumatically after the bladder blade was removed in the cephalic position. The cord was clamped and cut. Cord blood was obtained. The was handed off to awaiting team. The patient's placenta was spontaneously delivered. The uterus was then exteriorized. The uterus was cleared of all clots and debris. The bladder blade was reinserted. The patient's uterine incision was closed using #0 Vicryl in a running lock fashion. Excellent hemostasis was assured. The uterus was then returned to the patient's abdomen. The patient's abdomen was copiously irrigated using warm saline. Peritoneal gutters were cleared of all clots and debris. Again excellent hemostasis was assured. The patient's peritoneum was closed using 3-0 Vicryl in a running fashion. The patient's fascia was closed using #0 Vicryl in a running fashion. The patient's skin was closed using 4-0 Vicryl subcuticularly. The patient tolerated the procedure well. Sponge, lap, and needle counts were correct x2. The patient was taken to the Recovery Room in stable condition. Anesthesia: DANIEL Surgeon: Jim Howell [employer] Tuber Machine Operator: Rosey Suarez Estimated blood loss (mL): 575 Pathology: none sent Condition: stable Disposition: PACU Urinary Catheter Management Urinary Catheter Management Urethral: Cath placed during this visit: no
--- NOTE | 2025-05-22 08:39 | P.OBPRC_ITS ---
Procedure Pre-op/Post-op diagnoses: Pre-Op/Post-Op Diagnoses Operation Date: 05/22/25 07:30 <No data on this case meets the specified criteria> Procedure: Procedures Operation Date: 05/22/25 07:30 Actual Procedure Side Surgeon p Repeat Not Applicable Jim Howell DO Musical Instrument Mechanic: Rosey Suarez Estimated blood loss (mL): 575 Disposition: floor Anesthesia type: Spinal
--- NOTE | 2025-05-22 12:08 | SWNOTE1 ---
SW met with pt discuss her insurance and to check on any discharge needs. Father of baby in room as well. Pt voiced that her and baby are doing well. This is their 3rd child together and they have a 3 year old 5 year old at home. They do have everything they need at home for baby. Pt is breast feeding and voiced it is going well. They also voiced they do have good support at home as well. SW did ask about her insurance. [employer] is 's old insurance. Pt has now applied for Medicaid and does have a pending Medicaid number and did get a formal letter that she did qualify. This will be her primary. SW did inform pt about WIC services as well. They voiced understanding. SW to follow as needed. SW updated case management of pending Medicaid primary.
[2025-05-22] MEDS: KETOROLAC TROMETHAMINE 30 MG/ML VIAL IVP ×2 (16:09→22:13)
[2025-05-22] MEDS: ENOXAPARIN SODIUM 40 MG/0.4 ML SYRINGE SUBQ (22:13)
[2025-05-23 01:09] VITALS: BP 119/58; PULSE 76
[2025-05-23 01:10] VITALS: BP 119/58; TEMP 36.5
[2025-05-23] MEDS: KETOROLAC TROMETHAMINE 30 MG/ML VIAL IVP (04:58)
[2025-05-23 05:00] VITALS: BP 125/65; PULSE 100; TEMP 36.7; O2SAT 99
[2025-05-23 06:39] LABS: Hematocrit 27.1 % (36.0-48.0); Hemoglobin 8.5 g/dL (12.0-16.0); Immature Granulocytes Abs Auto 0.04 10^3/uL (0.00-0.03); Immature Granulocytes Pct Auto 0.4 % (0.0-0.5); Lymphocytes Absolute Auto 2.4 10^3/uL (1.2-3.8); Mean Corpuscular HGB Conc 31.4 g/dL (29.9-35.2); Mean Corpuscular Hemoglobin 23.7 pg (26.7-34.0); Mean Corpuscular Volume 75.5 fL (81.0-99.0); Platelet Count 259 10^3/uL (150-450); Red Blood Count 3.59 10^6/uL (4.20-5.40); White Blood Count 10.1 10^3/uL (4.0-11.0)
[2025-05-23 09:58] VITALS: BP 114/57; PULSE 102
[2025-05-23] MEDS: DOCUSATE SODIUM 100 MG CAPSULE PO ×2 (10:02→21:24)
[2025-05-23] MEDS: OXYCODONE HCL/ACETAMINOPHEN 5MG/325MG 1 TAB PO ×2 (10:25→17:26)
--- NOTE | 2025-05-23 10:26 | PM.OBPN ---
OB - PN: Subj Subjective Patient comments: no complaints and pain well controlled [place] status: doing well Exam Constitutional Vital Signs, click to edit/add: Last Vital Signs Temp 98.1 F 05/23/25 05:00 Pulse 102 H 05/23/25 09:58 Resp 18 05/23/25 05:00 BP 114/57 05/23/25 09:58 Pulse Ox 99 05/23/25 05:00 O2 Del Method Room Air 05/23/25 05:00 Documenting provider has reviewed patient's vital signs: yes Common normals: no apparent distress Respiratory Common normals: normal respiratory effort and clear to auscultation bilaterally Cardio Common normals: regular rate and regular rhythm GI Common normals: Normal to inspection, nondistended, normoactive bowel sounds present Extremity Common normals: no clubbing, cyanosis or edema and no calf tenderness Results Labs Labs: Short CBC 05/23/25 Range/Units 06:32 WBC 10.1 (4.0-11.0) 10^3/uL Hgb 8.5 L (12.0-16.0) g/dL Hct 27.1 L (36.0-48.0) % Plt Count 259 (150-450) 10^3/uL Urinary Catheter Management Urinary Catheter Management Urethral: Cath placed during this visit: no OB - PN: A/P Plan - day: 1 Plan: routine postop care Time Spent with Patient Time: Total time spent is greater than 50% in coordination of care (as documented) at patient's floor/unit and/or counseling patient: Total time spent with greater than 50% in coordination of care (as documented) at patient's floor/unit and/or counseling patient: less than 15 minutes
[2025-05-23] MEDS: IBUPROFEN 400 MG TABLET 800 MG PO ×2 (13:28→21:24)
[2025-05-23 17:22] VITALS: BP 130/60; PULSE 97
[2025-05-23] MEDS: ENOXAPARIN SODIUM 40 MG/0.4 ML SYRINGE SUBQ (21:23)
[2025-05-23 21:30] VITALS: BP 133/68; PULSE 102; TEMP 36.6
[2025-05-24] MEDS: OXYCODONE HCL/ACETAMINOPHEN 5MG/325MG 2 TAB PO ×2 (01:40→11:12)
[2025-05-24] MEDS: IBUPROFEN 400 MG TABLET 800 MG PO (05:30)
--- NOTE | 2025-05-24 07:25 | PM.OBPN ---
OB - PN: Subj Subjective Patient comments: no complaints and pain well controlled [place] status: doing well Exam Constitutional Vital Signs, click to edit/add: Last Vital Signs Temp 97.8 F 05/23/25 21:30 Pulse 102 H 05/23/25 21:30 Resp 16 05/23/25 21:30 BP 133/68 05/23/25 21:30 Pulse Ox 99 05/23/25 05:00 O2 Del Method Room Air 05/23/25 21:30 Documenting provider has reviewed patient's vital signs: yes Common normals: no apparent distress Respiratory Common normals: normal respiratory effort and clear to auscultation bilaterally Cardio Common normals: regular rate and regular rhythm GI Common normals: Normal to inspection, nondistended, normoactive bowel sounds present Extremity Common normals: no clubbing, cyanosis or edema and no calf tenderness Urinary Catheter Management Urinary Catheter Management Urethral: Cath placed during this visit: no OB - PN: A/P Plan - day: 2 Plan: routine postop care, discharge home and other (fu 1wk) Time Spent with Patient Time: Total time spent is greater than 50% in coordination of care (as documented) at patient's floor/unit and/or counseling patient: Total time spent with greater than 50% in coordination of care (as documented) at patient's floor/unit and/or counseling patient: less than 15 minutes
[2025-05-24 09:35] VITALS: TEMP 36.4
[2025-05-24 09:36] VITALS: BP 127/58; PULSE 111
[2025-05-24] MEDS: DOCUSATE SODIUM 100 MG CAPSULE PO (09:43)
== END 2025-05-24 13:10 | disposition home or self-care (01) | DRG 540 ==
PROVIDERS: Admitting Provider Obstetrics & Gynecology; PCP Family Medicine; Visit Provider Obstetrics & Gynecology
PROC: 10D00Z1 Extraction of Products of Conception, Low, Open Approach (ICD-10-PCS; CPT 59514; principal; 2025-05-22 07:30)
DX: O34.211 Maternal care for low transverse scar from previous cesarean delivery (principal); Z3A.39 39 weeks gestation of pregnancy; Z37.0 Single live birth; O13.4 Gestational [pregnancy-induced] hypertension without significant proteinuria, complicating childbirth
CPT/HCPCS: 36415; 59025; 59050; 80307; 81001; 85025; 86850; 86900; 86901; 94667; 94668; J0736; J1100; J1650; J1885; J2274; J2371; J2405; J2590; J2765; J3490